=== PATIENT | male | born 1950 | race Caucasian/White ===

== ENCOUNTER 2023-01-13 10:47 | Outpatient (RCR) | payer MEDICARE, SELFPAY | END 2023-03-08 12:31 | disposition home or self-care (01) | LOC: PT 10:47 | PROVIDERS: PCP Family Medicine; Visit Provider Family Medicine | DX: R26.81 Unsteadiness on feet (principal) | CPT/HCPCS: 97032; 97110; 97112; 97530 ==

== ENCOUNTER 2023-03-21 11:42 | Outpatient (OUT) | payer MEDICARE, SELFPAY ==
[2023-03-21 12:19] LABS: Basophils Percent Auto 0.4 % (0.2-2.0); Eosinophils Absolute Auto 0.5 10^3/uL (0.0-0.7); Eosinophils Percent Auto 6.5 % (0.9-7.0); Hematocrit 36.4 % (42.0-54.0); Hemoglobin 11.2 g/dL (14.0-18.0); Immature Granulocytes Abs Auto 0.02 10^3/uL (0.00-0.03); Immature Granulocytes Pct Auto 0.3 % (0.0-0.5); Lymphocytes Absolute Auto 2.3 10^3/uL (1.2-3.8); Lymphocytes Percent Auto 32.1 % (20.5-60.0); Mean Corpuscular HGB Conc 30.8 g/dL (29.9-35.2); Mean Corpuscular Hemoglobin 24.9 pg (25.9-34.0); Mean Corpuscular Volume 80.9 fL (80.0-94.0); Mean Platelet Volume 9.9 fL (9.5-13.5); Monocytes Absolute Auto 0.5 10^3/uL (0.3-0.8); Monocytes Percent Auto 7.4 % (1.7-12.0); Neutrophils Absolute Auto 3.8 10^3/uL (1.4-6.5); Neutrophils Percent Auto 53.3 % (43.0-75.0); Platelet Count 294 10^3/uL (150-450); Red Cell Distribution Width 17.6 % (11.0-15.0); White Blood Count 7.2 10^3/uL (4.0-11.0)
[2023-03-21 12:24] LABS: Estimated Average Glucose 180 mg/dL; Glycohemoglobin A1C 7.9 % (4.5-6.2)
[2023-03-21 12:48] LABS: Alanine Aminotransferase 19 U/L (16-63); Albumin Globulin Ratio 0.9; Albumin Level 4.2 g/dL (3.4-5.0); Alkaline Phosphatase 84 U/L (46-116); Anion Gap 16.6; Aspartate Amino Transferase 15 U/L (15-37); BUN Creatinine Ratio 16.7; Bilirubin Direct 0.1 mg/dL (0.0-0.2); Bilirubin Total 0.5 mg/dL (0.2-1.0); Calcium 9.5 mg/dL (8.5-10.1); Carbon Dioxide 26.8 mmol/L (21.0-32.0); Chloride 104 mmol/L (98-107); Chol HDL Ratio 2.3; Cholesterol 124 mg/dL (<=200); Estimated GFR (African America >60 (>=60); Estimated GFR (Non-African Ame 60 (>=60); Free T3 2.06 pg/mL (2.18-3.98); Globulin 4.5 g/dL; Glucose 180 mg/dL (74-106); HDL Cholesterol 54 mg/dL (40-60); LDL Cholesterol Calculated 46.2 mg/dL; Potassium 4.4 mmol/L (3.5-5.1); Sodium 143 mmol/L (136-145); Total Protein 8.7 g/dL (6.4-8.2); Triglycerides 119 mg/dL (<=150); VLDL CHOLESTEROL 23.8 mg/dL
[2023-03-21 15:47] LABS: Microalbumin Urine Random 25.1 mg/dL (<=30.0)
== END 2023-03-21 11:43 | disposition home or self-care (01) ==
PROVIDERS: PCP Family Medicine; Visit Provider Family Medicine
DX: E11.65 Type 2 diabetes mellitus with hyperglycemia (principal); I10 Essential (primary) hypertension; Z79.899 Other long term (current) drug therapy; E03.9 Hypothyroidism, unspecified; E78.5 Hyperlipidemia, unspecified
CPT/HCPCS: 36415; 80048; 80061; 80076; 82043; 83036; 84481; 85025

== ENCOUNTER 2023-07-18 14:20 | Outpatient (OUT) | payer MEDICARE, SELFPAY ==
[2023-07-18 15:02] LABS: Basophils Percent Auto 0.3 % (0.2-2.0); Eosinophils Absolute Auto 0.3 10^3/uL (0.0-0.7); Eosinophils Percent Auto 4.1 % (0.9-7.0); Hematocrit 41.9 % (42.0-54.0); Hemoglobin 13.6 g/dL (14.0-18.0); Immature Granulocytes Abs Auto 0.01 10^3/uL (0.00-0.03); Immature Granulocytes Pct Auto 0.2 % (0.0-0.5); Lymphocytes Absolute Auto 2.1 10^3/uL (1.2-3.8); Lymphocytes Percent Auto 33.2 % (20.5-60.0); Mean Corpuscular HGB Conc 32.5 g/dL (29.9-35.2); Mean Corpuscular Hemoglobin 29.6 pg (25.9-34.0); Mean Corpuscular Volume 91.1 fL (80.0-94.0); Mean Platelet Volume 10.1 fL (9.5-13.5); Monocytes Absolute Auto 0.6 10^3/uL (0.3-0.8); Monocytes Percent Auto 9.4 % (1.7-12.0); Neutrophils Absolute Auto 3.3 10^3/uL (1.4-6.5); Neutrophils Percent Auto 52.8 % (43.0-75.0); Platelet Count 187 10^3/uL (150-450); Red Cell Distribution Width 16.9 % (11.0-15.0); White Blood Count 6.3 10^3/uL (4.0-11.0)
== END 2023-07-18 14:21 | disposition home or self-care (01) ==
LOC: LAB 14:22
PROVIDERS: PCP Family Medicine; Visit Provider Family Medicine
DX: Z79.899 Other long term (current) drug therapy (principal)
CPT/HCPCS: 36415; 85025

== ENCOUNTER 2023-09-27 15:26 | Outpatient (OUT) | payer MEDICARE, SELFPAY ==
[2023-09-27 15:47] LABS: Basophils Percent Auto 0.3 % (0.2-2.0); Eosinophils Absolute Auto 0.2 10^3/uL (0.0-0.7); Eosinophils Percent Auto 3.7 % (0.9-7.0); Hematocrit 41.7 % (42.0-54.0); Hemoglobin 13.6 g/dL (14.0-18.0); Immature Granulocytes Abs Auto 0.01 10^3/uL (0.00-0.03); Immature Granulocytes Pct Auto 0.2 % (0.0-0.5); Lymphocytes Absolute Auto 1.8 10^3/uL (1.2-3.8); Lymphocytes Percent Auto 30.6 % (20.5-60.0); Mean Corpuscular HGB Conc 32.6 g/dL (29.9-35.2); Mean Corpuscular Hemoglobin 31.9 pg (25.9-34.0); Mean Corpuscular Volume 97.7 fL (80.0-94.0); Mean Platelet Volume 9.9 fL (9.5-13.5); Monocytes Absolute Auto 0.4 10^3/uL (0.3-0.8); Monocytes Percent Auto 7.4 % (1.7-12.0); Neutrophils Absolute Auto 3.5 10^3/uL (1.4-6.5); Neutrophils Percent Auto 57.8 % (43.0-75.0); Platelet Count 165 10^3/uL (150-450); Red Blood Count 4.27 10^6/uL (4.70-6.10); Red Cell Distribution Width 14.6 % (11.0-15.0)
[2023-09-27 16:02] LABS: Alanine Aminotransferase 23 U/L (16-63); Albumin Level 3.9 g/dL (3.4-5.0); Alkaline Phosphatase 75 U/L (46-116); Anion Gap 15.6; Aspartate Amino Transferase 20 U/L (15-37); Bilirubin Total 0.7 mg/dL (0.2-1.0); Calcium 9.3 mg/dL (8.5-10.1); Carbon Dioxide 27.6 mmol/L (21.0-32.0); Chloride 110 mmol/L (98-107); Estimated GFR (African America >60 (>=60); Estimated GFR (Non-African Ame >60 (>=60); Globulin 4.1 g/dL; Glucose 158 mg/dL (74-106); Potassium 4.2 mmol/L (3.5-5.1); Sodium 149 mmol/L (136-145)
[2023-09-27 16:06] LABS: INR 1.08; Partial Thromboplastin Time 29.7 sec (22.3-36.2); Prothrombin Time 11.4 sec (9.0-11.6)
== END 2023-09-27 15:27 | disposition home or self-care (01) ==
LOC: LAB 15:27
PROVIDERS: PCP Family Medicine; Visit Provider Internal Medicine
DX: K92.1 Melena (principal)
CPT/HCPCS: 36415; 80053; 85025; 85610; 85730

== ENCOUNTER 2024-02-24 11:47 | Outpatient (OUT) | payer MEDICARE, SELFPAY ==
[2024-02-24 12:48] LABS: Basophils Percent Auto 0.5 % (0.2-2.0); Eosinophils Absolute Auto 0.3 10^3/uL (0.0-0.7); Eosinophils Percent Auto 4.3 % (0.9-7.0); Hematocrit 36.2 % (42.0-54.0); Immature Granulocytes Abs Auto 0.03 10^3/uL (0.00-0.03); Immature Granulocytes Pct Auto 0.5 % (0.0-0.5); Lymphocytes Absolute Auto 1.2 10^3/uL (1.2-3.8); Lymphocytes Percent Auto 19.1 % (20.5-60.0); Mean Corpuscular HGB Conc 33.1 g/dL (29.9-35.2); Mean Corpuscular Hemoglobin 32.3 pg (25.9-34.0); Mean Corpuscular Volume 97.6 fL (80.0-94.0); Mean Platelet Volume 9.6 fL (9.5-13.5); Monocytes Absolute Auto 0.6 10^3/uL (0.3-0.8); Neutrophils Absolute Auto 4.2 10^3/uL (1.4-6.5); Neutrophils Percent Auto 66.6 % (43.0-75.0); Platelet Count 242 10^3/uL (150-450); Red Blood Count 3.71 10^6/uL (4.70-6.10); Red Cell Distribution Width 14.5 % (11.0-15.0); White Blood Count 6.2 10^3/uL (4.0-11.0)
[2024-02-24 14:11] LABS: Anion Gap 15.4; Calcium 9.1 mg/dL (8.5-10.1); Carbon Dioxide 25.3 mmol/L (21.0-32.0); Chloride 104 mmol/L (98-107); Estimated GFR (African America >60 (>=60); Estimated GFR (Non-African Ame >60 (>=60); Glucose 174 mg/dL (74-106); Potassium 4.7 mmol/L (3.5-5.1); Sodium 140 mmol/L (136-145)
[2024-02-24 14:19] LABS: Estimated Average Glucose 134 mg/dL; Glycohemoglobin A1C 6.3 % (4.5-6.2)
== END 2024-02-24 11:48 | disposition home or self-care (01) ==
LOC: LAB 11:52
PROVIDERS: PCP Family Medicine
DX: Z01.818 Encounter for other preprocedural examination (principal)
CPT/HCPCS: 36415; 80048; 83036; 85025

== ENCOUNTER 2024-07-26 13:53 | Outpatient (OUT) | payer MEDICARE, SELFPAY ==
[2024-07-26 14:35] LABS: Basophils Percent Auto 0.3 % (0.2-2.0); Eosinophils Absolute Auto 0.2 10^3/uL (0.0-0.7); Eosinophils Percent Auto 3.6 % (0.9-7.0); Hematocrit 39.1 % (42.0-54.0); Hemoglobin 12.9 g/dL (14.0-18.0); Immature Granulocytes Abs Auto 0.02 10^3/uL (0.00-0.03); Immature Granulocytes Pct Auto 0.3 % (0.0-0.5); Lymphocytes Absolute Auto 1.9 10^3/uL (1.2-3.8); Lymphocytes Percent Auto 28.7 % (20.5-60.0); Mean Corpuscular Hemoglobin 31.7 pg (25.9-34.0); Mean Corpuscular Volume 96.1 fL (80.0-94.0); Monocytes Absolute Auto 0.5 10^3/uL (0.3-0.8); Monocytes Percent Auto 7.6 % (1.7-12.0); Neutrophils Percent Auto 59.5 % (43.0-75.0); Platelet Count 237 10^3/uL (150-450); Red Blood Count 4.07 10^6/uL (4.70-6.10); Red Cell Distribution Width 14.5 % (11.0-15.0); White Blood Count 6.7 10^3/uL (4.0-11.0)
[2024-07-26 15:00] LABS: Prostate Specific Antigen Scrn 12.96 ng/mL (<=4.00)
[2024-07-26 15:35] LABS: Cholesterol 149 mg/dL (<=200); HDL Cholesterol 76 mg/dL (40-60); Triglycerides 123 mg/dL (<=150); VLDL CHOLESTEROL 24.6 mg/dL
== END 2024-07-26 13:54 | disposition home or self-care (01) ==
LOC: LAB 13:53
PROVIDERS: PCP Family Medicine; Visit Provider Family Medicine
DX: E11.65 Type 2 diabetes mellitus with hyperglycemia (principal); Z79.899 Other long term (current) drug therapy; E78.00 Pure hypercholesterolemia, unspecified; Z12.5 Encounter for screening for malignant neoplasm of prostate
CPT/HCPCS: 36415; 80061; 82043; 85025; G0103

== ENCOUNTER 2024-07-26 13:56 | Outpatient (OUT) | payer MEDICARE, SELFPAY ==
--- NOTE | 2024-07-26 14:11 | CT_ITS ---
The [address] [address] Patient Name: SARMAD VALENTE MRN: [facility]:[id number] date: 1950 Sex: M Assigned Patient Location: CT Current Patient Location: CT Accession/Order Number: [id number] Exam Date: 07/26/2024 14:20 Report Date: 07/26/2024 15:03 At the request of: NON-STAFF PHYSICIAN Procedure: CT head/brain wo con CT head/brain wo con, 07/26/2024 2:20 PM EST INDICATION: Mental Status Change, Cognitive Change COMPARISON: There is no appropriate prior study for comparison. TECHNIQUE: Axial CT images of the brain from skull base to vertex, including portions of the face and sinuses, were obtained without contrast . Multiplanar reformatted images were generated and reviewed as needed. Dose reduction techniques were achieved by using automated exposure control and/or adjustment of mA and/or kV according to patient size and/or use of iterative reconstruction technique. FINDINGS: The cerebral sulci as well as ventricular system are appropriate for age. There is no intracranial mass, mass effect, midline shift, intra or extra-axial fluid collection or hemorrhage. Periventricular and centrum semiovale hypodensities are most likely consistent with microvascular ischemic changes. The visualized portions of orbits, mastoid air cells as well as paranasal sinuses are unremarkable. There is no suspicious osteolytic or osteoblastic lesion. CT/CT head/brain wo con IMPRESSION: No acute intracranial process is noted. Electronically authenticated by: BOB MALCOLM Date: 07/26/2024 15:03
[2024-07-26 14:36] LABS: Estimated Average Glucose 140 mg/dL; Glycohemoglobin A1C 6.5 % (4.5-6.2)
[2024-07-26 14:38] LABS: Alanine Aminotransferase 23 U/L (16-63); Albumin Level 3.9 g/dL (3.4-5.0); Alkaline Phosphatase 70 U/L (46-116); Anion Gap 19.1; Aspartate Amino Transferase 24 U/L (15-37); BUN Creatinine Ratio 11.7; Bilirubin Total 0.6 mg/dL (0.2-1.0); Calcium 8.9 mg/dL (8.5-10.1); Carbon Dioxide 25.8 mmol/L (21.0-32.0); Chloride 106 mmol/L (98-107); Estimated GFR (African America >60 (>=60 mL/min/1.73m^2); Estimated GFR (Non-African Ame 55 (>=60 mL/min/1.73m^2); Globulin 3.9 g/dL; Glucose 114 mg/dL (74-106); Potassium 3.9 mmol/L (3.5-5.1); Sodium 147 mmol/L (136-145); Total Protein 7.8 g/dL (6.4-8.2)
[2024-07-26 14:58] LABS: Thyroid Stimulating Hormone 10.216 uIU/mL (0.358-3.740)
[2024-07-27 08:10] LABS: Vitamin B12 201 pg/mL (232-1245)
== END 2024-07-26 13:57 | disposition home or self-care (01) ==
LOC: CT 13:56
PROVIDERS: PCP Family Medicine
DX: E11.65 Type 2 diabetes mellitus with hyperglycemia (principal); Z79.899 Other long term (current) drug therapy; E78.00 Pure hypercholesterolemia, unspecified; Z12.5 Encounter for screening for malignant neoplasm of prostate; R41.89 Other symptoms and signs involving cognitive functions and awareness; E78.2 Mixed hyperlipidemia; E07.9 Disorder of thyroid, unspecified; E53.8 Deficiency of other specified B group vitamins
CPT/HCPCS: 36415; 70450; 80053; 80061; 82607; 83036; 84443; 85025; G0103

== ENCOUNTER 2024-12-24 19:12 | Emergency (ER) | payer MEDICARE, SELFPAY ==
[2024-12-24 19:16] VITALS: BP 157/97; PULSE 111; TEMP 36.8; O2SAT 99; BMI 27.8
--- OUTSIDE RECORDS SUMMARY | 2024-12-24 19:25 | XMS_ITS | CCD ---
Author Organization [facility] Care Team Providers Care Stopper Setter Name Role Phone PHYSICIAN, DEFAULT Admitting Unavailable PHYSICIAN, DEFAULT Attending Unavailable RILEY KEVIN Primary Care Unavailable JUDY MICHAELS Referring Unavailable SEARS, CATHLEEN Valentino Primary Care Unavailable Searachel, Cathleen Valentino Primary Care Provider [phone] Cathleen Cooney Primary Care Provider JANENE CARROLL Attending Unavailabl e CATHLEEN COONEY Primary Care Unavail able CATHLEEN COONEY Consulting Unavail able Ronnirs Cathleen CALDERON Primary Care Provider YANELI CARO Referring Unavailable SEARS, CATHLEEN Valentino Primary Care Unavailable CHANCE MCNEAL Referring Unavailable SEARS, CATHLEEN Valentino Primary Care Unavailable SEARS, CATHLEEN Valentino Referring Unavailable SEARS, CATHLEEN Valentino Primary Care Unavailable SEARS, CATHLEEN Valentino Referring Unavailable SEARS, CATHLEEN Valentino Primary Care Unavailable SEARS, CATHLEEN Valentino Referring Unavailable SEARS, GENNAROOPHHO Valentino Primary Care Unavailable SEARS, CATHLEEN Valentino Referring Unavailable SEARS, CHRISTOPHHO Valentino Primary Care Unavailable SEARS, CATHLEEN Valentino Referring Unavailable SEARS, CATHLEEN Valentino Primary Care Unavailable YANELI CARO Referring Unavailable SEARS, CATHLEEN Valentino Primary Care Unavailable ANKIT KHAN Primary Care Physician Tee Carpenter MD Unavailable Ankit Khan MD Unavailable Sarmad Finley MD Unavailable Ankit Khan MD Primary Care Provider MAR Johnson Attending Provider [phone] MD Ankit Khan Primary Care Provider Cathleen Cooney Unavailable Cathleen Cooney Primary Care Provider LUMary Anne ., DINA Aparicio Admitting Unavailable LUE ., DINA Aparicio Attending Unavailable WEST, DR SANCHEZ Ashley Consulting Unavailable NADERER, DR ANKIT Alcantar Primary Care Unavailable LUMary Anne ., DINA Aparicio Consulting Unavailable NADERER, DR ANKIT Alcantar Admitting Unavailable NADERER, DR ANKIT Alcantar Attending Unavailable NADERER, DR ANKIT Alcantar Primary Care Unavailable REINECK, DR GOLDIE Ivy Consulting Unavailabl e NADERER, DR ANKIT Alcantar Admitting Unavailable NADERER, DR ANKIT Alcantar Attending Unavailable NADERER, DR ANKIT Alcantar Primary Care Unavailable WEST, DR SANCHEZ Ashley Consulting Unavailable ZIEBER, DR EFRA Owen Consulting Unavailable NADERER, DR ANKIT Alcantar Consulting Unavailable NILL ., DR ONEAL Consulting Unavailable NADERER, DR ANKIT Alcantar Admitting Unavailable NADERER, DR ANKIT Alcantar Attending Unavailable NADERER, DR ANKIT Alcantar Primary Care Unavailable NADERER, DR ANKIT Alcantar Admitting Unavailable NADERER, DR ANKIT Alcantar Attending Unavailable NADERER, DR ANKIT Alcantar Consulting Unavailable NADERER, DR ANKIT Alcantar Primary Care Unavailable Jayden CALDERON, Tee Unavailable Ankit Khan MD Unavailable Sarmad Finley MD Unavailable Ankit Khan MD Primary Care Provider Cathleen Cooney MD Unavailable [phone] Cathleen Cooney MD Primary Care Provider Dina Ortiz MD Unavailable DINA ORTIZ Referring Unavailable YARY FERNANDO Attending Unavailable CATHLEEN COONEY Primary Care Unavailable Ankit Khan MD Primary Care Provider Cathleen Cooney MD Primary Care Provider AYUSH GONZALEZ Attending Unavailable AYUSH GONZALEZ Referring Unavailable ANKIT KHAN Primary Care Unavailable AYUSH GONZALEZ Referring Unavailable ANKIT KHAN Primary Care Unavailable AYUSH GONZALEZ Attending Unavailable SARMAD FINLEY Attending Unavailable ANKIT KHAN Primary Care Unavailable BILL, ANKIT Referring Unavailable Brianerer, Ankit Alcantar Primary Care Provider MD Ankit Khan Primary Care Provider MD Scot Imjames Attending Provider MAR Siddiqi Attending Provider Ankit Khan MD Primary Care Provider Shaikh Chilel MD Unavailable Ankit Khan MD Primary Care Provider Asaad, Imad Admitting Unavailable Asaad, Imad Attending Unavailable Ankit Khan Primary Care Unavailable Rebekah Siddiqi Admitting Unavailable Rebekah Siddiqi Attending Unavailable Ankit Khan Primary Care Unavailable Asaad, Imad Admitting Unavailable Asaad, Imad Attending Unavailable Ankit Khan Primary Care Unavailable Asaad, Imad Admitting Unavailable Asaad, Imad Attending Unavailable Ankit Khan Primary Care Unavailable Ankit Khan MD Unavailable ANKIT KHAN Attending Unavailable SHAIKH CHILEL Attending Unavailable SHAIKH CHILEL Attending Unavailable ANKIT KHAN Attending Unavailable ANKIT KHAN Attending Unavailable Dina Ortiz Attending Unavailable Dina Ortiz Attending Unavailable Dina Ortiz Attending Unavailable CATHLEEN COONEY Primary Care Unavailable ALEX NEWMAN Referring Unavailable BRODERICK BENITEZ Attending Unavail able NADERER, ANKIT A Primary Care Unavailable NADERER, ANKIT A Primary Care Unavailable RADHA VO Attending Unavailable BRODERICK BENITEZ Attending Unavail able NADERER, ANKIT A Primary Care Unavailable ALEX NEWMAN Attending Unavailable NADERER, ANKIT A Primary Care Unavailable SALLY DENNIS Attending Unavaila ble NADERER, ANKIT A Primary Care Unavailable ALEX NEWMAN Referring Unavailable NADERER, ANKIT A Primary Care Unavailable ALEX NEWMAN Attending Unavailable NADERER, ANKIT A Primary Care Unavailable NASRA CUEVA Attending Unavailable NADERER, ANKIT A Primary Care Unavailable ALEX NEWMAN Attending Unavailable NADERER, ANKIT A Primary Care Unavailable BENITEZBRODERICK IZAGUIRRE KIMMY Attending Unavail able ANKIT KHAN Primary Care Unavailable ALEX NEWMAN Attending Unavailable BILL ANKIT Katharine Primary Care Unavailable CATHLEEN COONEY Primary Care Unavailable ALEX NEWMAN Referring Unavailable RADHA VO Attending Unavailable BILL ANKIT Katharine Primary Care Unavailable ALEX NEWMAN Attending Unavailable ALEX NEWMAN Admitting Unavailable BRIANNADEGE ANKIT Katharine Primary Care Unavailable CATHLEEN COONEY Primary Care Unavailable ALEX NEWMAN Attending Unavailable ALEX NEWMAN Admitting Unavailable Allergies Allergy Classification Reported Allergen(s) Allergy Type Date of Onset Reaction(s) Facility Amoxicillin / Clavulanate (1 source) Amoxicillin / Clavulanate Drug Allergy 04-13-20 16 Other: See Comments [facility] Penicillins (antibiotic) (3 sources) Amoxicillin Drug Allergy 11-08-[address] [facility] (20 sources) Amoxicillin; Translations: [amoxicillin] Drug Allergy 11-08-19 14 Unknown [place], [place] (20 sources) Amoxicillin-Pot Clavulanate; Translations: [AMOXICILLIN-POT CLAVULANATE] Propensity to adverse reactions to drug 11-08-19 14 Nausea Only, Other: See Comments, Unknown [place], [place] (10 sources) Shellfish-Derived Products Propensity to adverse reactions to drug 05-29-20 20 [place], [place] (20 sources) Amoxicillin / Clavulanate; Translations: [Augmentin] Drug Allergy unknown [facility] (20 sources) Shellfish; Translations: [shellfish] Drug allergy Unknown (qualifier value) [facility] (20 sources) levoFLOXacin; Translations: [levofloxacin] Drug Allergy 10-20-19 24 Hallucinations (finding), Hallucinations [facility] (18 sources) Penicillins; Translations: [Penicillins] Allergy to substance 12-18-19 22 Vomiting [facility] (1 source) Amoxicillin Drug Allergy [facility] Rep[facility] (14 sources) Cephalosporins (Antibiotic); Translations: [cephalosporins] Drug Allergy 08-10-20 23 Unknown, Unknown (qualifier value) [facility] (5 sources) Clavulanate; Translations: [clavulanic acid] Drug Allergy 04-19-20 diarrhea [facility] (11 sources) Shellfish Allergy to substance 10-20-[address] [facility] (1 source) Amoxicillin Drug Allergy 04-19-20 [facility] Repository Medications Current Medications Medication Drug Class(es) Dates Sig (Normalized) Sig (Original) 0.8 ml adalimumab 50 mg/ml prefilled syringe (15 sources) Tumor Necrosis Factor Hattie adalimumab (HUMIRA) 40 MG/0.8ML injection Inject 40 mg into the skin as needed 40 mg every other week 0 Active adalimumab (HUMI RA) 40 MG/0.8ML injection Inject 40 mg into the skin as needed 40 mg every other week 0 Active 200 actuat albuterol 0.09 mg/actuat metered dose inhaler (1 source) beta2-Adrenergic Agonist Start: 08-17-2016 take 2 puff(s) by inhalation four times daily albuterol sulfate HFA (PROAIR HFA) 108 (90 BASE) MCG/ACT inhaler Inhale 2 puffs into the lungs 4 times daily 1 Inhaler 0 08/17/2016 Active allopurinol 300 mg oral tablet (20 sources) Xanthine Oxidase Inhibitor Start: 10-30-2021 Start: 09-21-2018 End: 05-16-2024 allopurinol (ZYLOPRIM) 300 m g tablet Take 300 mg by mouth. 09/21/2018 Active Comment on above: Take 300 mg by mouth . amLODIPine 5 mg oral tablet (2 sources) Dihydropyridine Calcium Channel Hattie Start: 10-31-19 Anbesol Maximum Strength 20% mucous membrane gel (6 sources) Start: 10-31-19 Anbesol Maximum Strength 20% mucous membrane gel Refill(s) 0, Transmucosal Start Date: 10/30/21 Status: Ordered atorvastatin 20 mg oral tablet (20 sources) HMG-CoA Reductase Inhibitor Start: 09-21-19 End: 03-19-20 atorvastatin (LIPITOR) 20 mg tablet Take 20 mg by mouth. 11/03/2020 Active Comment on above: Take 20 mg by mouth. benzocaine 0.2 mg/mg oral gel (14 sources) Standardized Chemical Allergen Start: 03-18-20 22 Anbesol Maximum Strength 20% mucous membrane gel Refill(s) 0, Transmucosal Start Date: 10/30/21 Status: Ordered Blood Glucose Monitoring Suppl (EMBRACE PRO GLUCOSE METER) LINDA (20 sources) Start: 11-30-19 Blood Glucose Monitoring Suppl (EMBRACE PRO GLUCOSE METER) LINDA Embrace glucose meter/ Dispense 1 meter/ Dx: E11.9 1 Device 0 11/29/2016 Active 24 hr buPROPion hydrochloride 300 mg extended release oral tablet (20 sources) Aminoketone Start: 12-01-19 take 1 tablet by mouth every twenty-four hours in the morning buPROPion XL (Wellbutrin XL) 300 MG 24 hr tablet Indications: Anxiety state (CMS/HCC) Take 1 tablet (300 mg) by mouth in the morning. 90 tablet 3 12/01/2023 Active Start: 05-10-2023 take 1 tablet by swati th every twenty-four hours in the morning buPROPion XL (Wellbutrin XL) 300 MG 24 hr tablet Take 300 mg by mouth in the morning. 0 05/10/2023 Active Start: 10-30-2021 Start: 10-30-2021 Start: 09-25-2021 take 1 tablet by swati th once daily in the morning buPROPion 300 MG tablet XL Take 1 tablet by mouth daily every morning. 09/25/2021 Active Start: 12-01-2020 take 1 tablet by swati th once daily in the morning buPROPion (WELLBUTRIN XL) 300 MG extended release tablet Take 1 tablet by mouth every morning 90 tablet 3 12/01/2020 Active Start: 11-03-2020 take 1 tablet by swati th every twenty-four hours buPROPion XL (WELLBUTRIN XL) 150 mg 24 hr tablet Take 150 mg by mouth. 11/03/2020 Active Start: 11-03-2020 take 1 tablet by swati th once daily in the morning buPROPion (WELLBUTRIN XL) 150 MG extended release tablet Take 1 tablet by mouth every morning 90 tablet 3 11/03/2020 Active Start: 11-30-2019 take 1 tablet by swati th once daily in the morning buPROPion (WELLBUTRIN XL) 150 MG extended release tablet Take 1 tablet by mouth every morning 90 tablet 3 11/30/2019 Active Comment on above: Take 150 mg by mouth . cholecalciferol 0.05 mg oral tablet (9 sources) Vitamin D Start: 12-18-19 take 1 tablet by mouth once daily Cholecalciferol (Vitamin D3) (Vitamin D3) 50 mcg (2,000 unit) Tablet Active 50 MCG PO Daily December 17, 2021 12:00am Start: 09-25-2021 End: 09-27-2023 take 1 tablet by mouth once daily cholecalciferol 50 MCG (2000 UNIT) tablet Take 1 tablet by mouth daily. 09/25/2021 09/27/2023 Discontinued (Therapy completed) clobetasol propionate 0.5 mg/ml topical solution (12 sources) Corticosteroid clobetasol (Jb vate) 0.05 % external solution Apply 1 application topically in the morning and 1 application before bedtime. Active CPAP/BIPAP/OTHER (20 sources) Start: 02-06-2021 End: 06-23-2048 CPAP/BIPAP/OTHER autopap [id number] [facility]ME [facility] 1 Each 02/06/2021 06/23/2048 Active Start: 02-06-2021 End: 06-23-2048 CPAP/BIPAP/OTHER autopap 5-1 [id number] DME [facility] 1 Each 0 02/06/2021 06/23/2048 Active Comment on above: autopap [id number] DME [facility] DISABILITY PLACARD (1 source) Start: 2 End: 3 DISABILITY PLACARD Disability placard end date 09/25/2022 1 Each 0 09/25/2021 09/25/2022 Active docusate sodium 100 mg oral capsule (9 sources) Start: 2 End: 4 take 1 capsule by mouth twice daily Docusate Sodium (Colace) 100 mg Capsule Active 100 MG PO Twice daily December 17, 2021 12:00am doxycycline hyclate 100 mg oral capsule (9 sources) Tetracycline-class Drug Start: 5 End: 5 take 1 capsule by mouth twice daily doxycycline hyclate (VIBRAMYCIN) 100 mg capsule Take 1 capsule (100 mg) by mouth two times a day for 14 days. 20 capsule 09/28/2024 10/12/2024 Active Start: 09-18-2024 End: 09-23-2024 take 1 capsule by mouth twice daily doxycycline hyclate (VIBRAMYCIN) 100 mg capsule Take 1 capsule (100 mg) by mouth two times a day for 5 days. 10 capsule 09/18/2024 09/23/2024 Active Start: 06-08-2024 End: 06-13-2024 take 1 capsule by mouth twice daily doxycycline hyclate (VIBRAMYCIN) 100 mg capsule Take 1 capsule (100 mg) by mouth two times a day for 5 days. 10 capsule 06/08/2024 06/13/2024 Active Start: 06-28-2022 End: 07-08-2022 take 1 capsule by mouth every twelve hours doxycycline hyclate 100 mg Cap 100 mg = 1 cap(s), Oral, q12hr, X 10 day(s), # 20 cap(s), Refills(s) 0, [id number], 175, cm, 06/24/22 15:12:00 EST, Height/Length Dosing, 182, kg, 06/24/22 15:12:00 EST, Weight Dosing Start Date: 06/28/22 Stop Date: 07/08/22 Status: Ordered ferrous sulfate 325 mg oral tablet (8 sources) Start: 04-03-2020 take 1 tablet by mouth twice daily ferrous sulfate (IRON 325) 325 (65 Fe) MG tablet Take 1 tablet by mouth 2 times daily 180 tablet 1 04/03/2020 Active fluticasone propionate 0.05 mg/actuat metered dose nasal spray (1 source) Corticosteroid Start: 10-25-2014 fluticasone (FLONASE) 50 MCG/ACT nasal spray 1 spray by Nasal route 2 times daily. 1 Bottle 0 10/25/2014 Active gabapentin 300 mg oral capsule (20 sources) Anti-epileptic Agent Start: 01-25-2024 End: 05-16-2024 take 1 capsule by mouth in the morning gabapentin (Neurontin) 300 MG capsule Indications: Spinal stenosis of lumbar region with neurogenic claudication Take 1 capsule (300 mg) by mouth in the morning and 1 capsule (300 mg) before bedtime. 270 capsule 05/16/2024 Active Start: 09-24-2021 take 1 capsule by mo uth in the morning gabapentin (Neurontin) 300 MG capsule Take 300 mg by mouth in the morning and 300 mg before bedtime. 0 06/14/2023 Active GABAPENTIN, BULK, MISC (20 sources) GABAPENTIN, BULK , MISC 300 mg BID Active GABAPENTIN, BULK , MISC 300 mg BID 0 Active Insulin Lispro (2 sources) Insulin Analog Start: 10-30-2021 ketoconazole 20 mg/ml medicated shampoo (12 sources) Azole Antifungal ketoconazole (Nizoral) 2 % shampoo Apply 1 application topically 1 (one) time each day at the same time Active lamoTRIgine 25 mg oral tablet (11 sources) Mood Stabilizer, Anti-epileptic Agent Start: 10-10-2024 take 1 tablet by mouth at bedtime, then take 2 tablets by mouth at bedtime lamoTRIgine (LaMICtal) 25 MG tablet Indications: MDD (major depressive disorder), recurrent episode, moderate (CMS/HCC) TAKE 1 TAB BY MOUTH AT BEDTIME FOR 2 WEEKS, THEN INCREASE TO 2 TABS AT BEDTIME 180 tablet 1 10/10/2024 Active Start: 04-20-2024 take 1 tablet by swati th once daily at bedtime, then take 2 tablets by mouth once daily at bedtime lamoTRIgine (LaMICtal) 25 MG tablet Indications: MDD (major depressive disorder), recurrent episode, moderate (CMS/HCC) 1 PO QHS x 2 weeks then 2 PO QHS 60 tablet 3 04/20/2024 Active levothyroxine sodium 0.125 mg oral tablet (20 sources) l-Thyroxine Start: 07-26-2024 take 1 tablet by mouth once daily levothyroxine (SYNTHROID) 125 mcg tablet Take 1 tablet by mouth once daily. 08/27/2024 Active Start: 10-30-2021 Start: 09-25-2021 End: 12-15-2024 take 1 tablet by mouth before mealtime levothyroxine (Synthroid) 100 MCG tablet Indications: Hypothyroidism, unspecified type (CMS/HCC) Take 1 tablet (100 mcg) by mouth in the morning. Take before meals. 30 tablet 11 12/16/2023 07/26/2024 Discontinued (Reorder) Start: 12-01-2020 take 1 tablet by swati th once daily levothyroxine (SYNTHROID) 100 MCG tablet Take 1 tablet by mouth daily 90 tablet 3 12/01/2020 Active Start: 01-10-2020 take 1 tablet by swati th once daily levothyroxine (SYNTHROID) 100 MCG tablet Take 1 tablet by mouth daily 90 tablet 3 01/10/2020 Active Start: 11-30-2019 take 1 tablet by swati th once daily levothyroxine (SYNTHROID) 100 MCG tablet Take 1 tablet by mouth daily 90 tablet 3 11/30/2019 Active Start: 09-21-2018 End: 08-27-2024 take 1 tablet by mouth once daily levothyroxine (SYNTHROID) 88 mcg tablet Take 88 mcg by mouth once daily. 09/21/2018 08/27/2024 Discontinued Comment on above: Take 88 mcg by mouth once daily. lisinopril 10 mg oral tablet (20 sources) Angiotensin Converting Enzyme Inhibitor Start: 2 take 1 tablet by mouth once daily lisinopril 10 MG tablet Indications: Primary hypertension (CMS/HCC) Take 1 tablet (10 mg) by mouth Daily 90 tablet 3 02/06/2024 Active magnesium oxide 400 mg oral tablet (9 sources) Start: 2 take 400 mg by mouth twice daily Magnesium Oxide Active 400 MG PO Twice daily December 17, 2021 12:00am Start: 09-24-2021 End: 09-27-2023 take 2 tablets by mouth twice daily magnesium oxide 400 (241.3 Mg) MG tablet Take 2 tablets by mouth 2 times daily. 09/24/2021 09/27/2023 Discontinued (Therapy completed) Start: 09-24-20[address] [facility] twice daily magnesium oxide 400 (241.3 Mg) MG tablet Take 2 tablets by mouth 2 times daily. 0 09/24/2021 Active Start: 09-24-20[address] [facility] twice daily magnesium oxide 400 (241.3 Mg) MG tablet Take 2 tablets by mouth 2 times daily. 0 09/24/2021 Active Magnesium Sulfate (2 sources) Start: 10-30-2021 magnesium sulfate 0.0277 meq/ml / potassium sulfate 0.0374 meq/ml / sodium sulfate 0.257 meq/ml oral solution (1 source) Start: 08-17-2019 Na Sulfate-K Sulfate-Mg Sulf (SUPREP BOWEL PREP KIT) 17.5-3.13-1.6 GM/177ML SOLN Take as directed 2 Bottle 0 08/17/2019 Active metFORMIN hydrochloride 1000 mg oral tablet (20 sources) Biguanide Start: 09-10-2024 take 1 tablet by mouth twice daily at dinner metFORMIN (Glucophage) 1000 MG tablet Indications: Type 2 diabetes mellitus with hyperglycemia, without long-term current use of insulin (CMS/HCC) TAKE 1 TABLET BY MOUTH TWICE A DAY WITH MORNING AND EVENING MEAL 180 tablet 3 09/10/2024 Active Start: 09-24-2021 take 1 tablet by swati th twice daily at dinner metFORMIN (Glucophage) 1000 MG tablet Indications: Type 2 diabetes mellitus with hyperglycemia, without long-term current use of insulin (CMS/HCC) take 1 tablet by mouth twice a day WITH MORNING AND EVENING MEAL 180 tablet 3 03/06/2024 Active Start: 12-01-2020 take 1 tablet by swati th twice daily at mealtime metFORMIN (GLUCOPHAGE) 1000 MG tablet Take 1 tablet by mouth 2 times daily (with meals) 180 tablet 3 12/01/2020 Active Start: 01-10-2020 take 1 tablet by swati th twice daily at mealtime metFORMIN (GLUCOPHAGE) 1000 MG tablet Take 1 tablet by mouth 2 times daily (with meals) 180 tablet 3 01/10/2020 Active Start: 09-21-2018 take 1 tablet by swati th once daily metFORMIN (GLUCOPHAGE) 1,000 mg tablet Take 1,000 mg by mouth once daily. 09/21/2018 Active Start: 09-21-2018 take 1 tablet by swati th twice daily at mealtime metFORMIN (GLUCOPHAGE) 1000 MG tablet Take 1 tablet by mouth 2 times daily (with meals) 180 tablet 3 09/21/2018 Active Comment on above: Take 1,000 mg by swati th once daily. metroNIDAZOLE 500 mg oral tablet (2 sources) Nitroimidazole Antimicrobial Start: 10-31-19 22 multivitamin tablet (20 sources) take 1 tablet by mouth once daily multivitamin tablet Take 1 tablet by mouth once daily. Active take 1 tablet by mouth once hailey y multivitamin tablet Take 1 tablet by mouth once daily. 0 Active pantoprazole 40 mg delayed release oral tablet (20 sources) Proton Pump Inhibitor Start: 09-21-2024 take 1 tablet by mouth once pantoprazole (ProtoNix) 40 MG EC tablet Indications: Melena , Gastroesophageal reflux disease with esophagitis and hemorrhage TAKE 1 TABLET (40 MG) BY MOUTH EVERY 12 (TWELVE) HOURS 180 tablet 09/21/2024 Active Start: 06-25-2024 take 1 tablet by mouth once pa ntoprazole (ProtoNix) 40 MG EC tablet Indications: Melena , Gastroesophageal reflux disease with esophagitis and hemorrhage Take 1 tablet (40 mg) by mouth every 12 (twelve) hours 180 tablet 06/25/2024 Active Start: 02-07-2024 take 1 tablet by swati th every twelve hours pantoprazole (ProtoNix) 40 MG EC tablet Indications: Melena , Gastroesophageal reflux disease with esophagitis and hemorrhage take 1 tablet by mouth every 12 hours 180 tablet 02/07/2024 Active Start: 12-07-2023 Pantoprazole A ctive MG PO December 07, 2023 12:00am Start: 08-17-2023 End: 11-15-2023 take 1 tablet by mouth once pantoprazole (Protonix) 40 MG EC tablet Indications: Melena , Gastroesophageal reflux disease with esophagitis and hemorrhage Take 1 tablet (40 mg) by mouth every 12 (twelve) hours 180 tablet 0 08/17/2023 11/15/2023 Active Start: 09-24-2021 take 1 tablet by swati th twice daily pantoprazole [address] tablet DR Indications: GI Bleed Take 1 tablet by mouth 2 times daily. 09/24/2021 Active Start: 07-06-2019 take 1 tablet by swati th once daily before breakfast pantoprazole (PROTONIX) 40 MG tablet Take 1 tablet by mouth every morning (before breakfast) 90 tablet 0 07/06/2019 Active 100 ml potassium chloride 0. 1 meq/ml injection (2 sources) Start: 10-30-2021 sennosides, fpc 17.2 mg oral tablet (20 sources) Start: 10-30-2021 Start: 01-07-2019 End: 01-23-2024 senna (SENOKOT) 8.6 mg tab T niurka 8.6 mg by mouth. 0 01/07/2019 01/23/2024 Discontinued (Other) Comment on above: Take 8.6 mg by mouth . sildenafil 50 mg oral tablet (11 sources) Phosphodiesterase 5 Inhibitor Start: 10-20-19 take 1 tablet by mouth once daily as needed sildenafil (Viagra) 50 MG tablet Indications: Erectile dysfunction due to diseases classified elsewhere Take 1 tablet (50 mg) by mouth Daily as needed for erectile dysfunction 30 tablet 10/20/2023 Active Start: 09-01-2017 sildenafil ( AGRA) 100 MG tablet 1/2 to 1 whole tablet 30 minutes prior to intercourse 9 tablet 6 09/01/2017 Active SITagliptin 100 mg oral tablet (20 sources) Dipeptidyl Peptidase 4 Inhibitor Start: 11-03-2020 End: 05-16-2024 take 1 tablet by mouth once daily SITagliptin (JANUVIA) 100 mg tablet Take 100 mg by mouth once daily. 11/03/2020 Active Start: 10-15-2019 take 1 tablet by swati th once daily SITagliptin (JANUVIA) 100 MG tablet Take 1 tablet by mouth daily 90 tablet 3 10/15/2019 Active Start: 09-21-2018 take 1 tablet by swati th once daily SITagliptin (JANUVIA) 100 MG tablet Take 1 tablet by mouth daily 90 tablet 3 09/21/2018 Active Comment on above: Take 100 mg by mouth once daily. sulfamethoxazole 800 mg / trimethoprim 160 mg oral tablet (14 sources) Dihydrofolate Reductase Inhibitor Antibacterial, Sulfonamide Antimicrobial Start: End: take 1 tablet by mouth twice daily sulfamethoxazo le-trimethopri m (BACTRIM DS) 800-160 mg per tablet Take 1 tablet by mouth two times a day for 14 days. 28 tablet 09/24/2024 10/08/2024 Active Start: 09-24-2024 End: 09-24-2024 sulfamethoxazole-trimethopri m 800-160 mg 1 tablet (BACTRIM DS) Start: 09-24-2024 End: 09-24-2024 1 tablet, ORAL, ONCE, 1 dose , On Tue09/24/24 at 1400, Antimicrobial indication: Prophylaxis Start: 06-22-2024 End: 07-02-2024 Bactrim D.S. 800 mg-160 mg T ab 1 tab(s), Oral, BID for 10 day(s), 20 tab(s), Refill(s) 0, [facility]/pharmacy #[id number], 175, cm, 06/22/24 9:47:00 EST, Height/Length Dosing, 86.9, kg, 11/08/24 9:47:00 EST, Weight Dosing Start Date: 06/22/24 Stop Date: 07/02/24 Status: Ordered Start: 02-09-2024 End: 02-14-2024 take 1 tablet by mouth twice daily sulfamethoxazole-trimethoprim (BACTRIM D S) 800-160 mg per tablet Take 1 tablet by mouth two times a day for 5 days. 10 tablet 0 02/09/2024 02/14/2024 Active Start: 01-13-2022 End: 01-20-2022 take 1 tablet by mouth twice daily Bactrim DS 800 mg-160 mg Tab 1 tab(s), O ral, BID for 7 day(s), 14 tab(s), Refill(s) 0, [facility] [facility] [address], 175, cm, 12/17/21 14:26:00 EDT, Height/Length Dosing, 83, kg, 12/17/21 14:26:00 EDT, Weight Dosing Start Date: 01/13/22 Stop Date: 01/20/22 Status: Ordered tiZANidine 4 mg oral tablet (2 sources) Central alpha-2 Adrenergic Agonist Start: 10-30-2021 tiZANidine 4 mg Tab Oral, Refills(s) 0 Start Date: 10/30/21 Status: Ordered trospium chloride 20 mg oral tablet (20 sources) Cholinergic Muscarinic Antagonist Start: 06-17-2022 End: 09-08-2025 take 1 tablet by mouth in the morning trospium (Sanctura) 20 MG tablet Take 20 mg by mouth in the morning and 20 mg before bedtime. 06/16/2023 Active valsartan 160 mg oral tablet (19 sources) Angiotensin 2 Receptor Hattie Start: 09-01-2017 take 1 tablet by mouth once daily valsartan (DIOVAN) 160 MG tablet Take 1 tablet by mouth daily 90 tablet 3 09/01/2017 Active 24 hr venlafaxine 150 mg extended release oral capsule (20 sources) Serotonin and Norepinephrine Reuptake Inhibitor Start: 12-17-2021 take 75 mg by mouth three times daily Venlafaxine Active 75 MG PO Three times daily December 17, 2021 12:00am Start: 09-25-2021 take 3 capsules by m outh once daily in the morning venlafaxine 75 MG Cap SR 24HR capsule XR Take 3 capsules by mouth daily every morning. 09/25/2021 Active Start: 11-03-2020 take 1 capsule by mo ut once daily venlafaxine ER (EFFEXOR XR) 75 mg 24 hr capsule Take 75 mg by mouth once daily. 11/03/2020 Active Start: 11-03-2020 End: 01-23-2024 take 1 capsule by mouth every twenty-four hours venlafaxine ER (EFFEXOR XR) 150 mg 24 hr capsule Take 150 mg by mouth. 0 11/03/2020 01/23/2024 Discontinued (Other) Start: 10-15-2019 take 1 capsule by mo ut once daily venlafaxine (EFFEXOR XR) 75 MG extended release capsule Take 1 capsule by mouth daily Take along with 150 mg tablet 90 capsule 3 10/15/2019 Active Start: 09-21-2018 End: 05-29-2024 take 1 capsule by mouth once daily venlafaxine XR (Effexor XR) 150 MG 24 hr capsule Indications: MDD (major depressive disorder), recurrent episode, moderate (CMS/HCC) Take 1 capsule (150 mg) by mouth 1 (one) time each day at the same time 90 capsule 3 05/29/2024 Active Start: 09-21-2018 take 1 capsule by mo ut once daily venlafaxine (EFFEXOR XR) 75 MG extended release capsule Take 1 capsule by mouth daily Take along with 150 mg tablet 90 capsule 3 09/21/2018 Active Comment on above: Take 75 mg by mouth once daily. Take 150 mg by mouth . vitamin b12 1 mg oral tablet (20 sources) Vitamin B12 Start: 08-27-2024 take 1 tablet by mouth once daily cyanocobalamin (VITAMIN B-12) 1,000 mcg tab Indications: B12 deficiency Take 1 tablet by mouth once daily. 100 tablet 3 08/27/2024 Active Completed/Discontinued Medications Medication Drug Class(es) Dates Sig (Normalized) Sig (Original) amLODIPine 5 mg / benazepril hydrochloride 10 mg oral capsule (20 sources) Dihydropyridine Calcium Channel Hattie, Angiotensin Converting Enzyme Inhibitor Start: 11-03-2020 End: 01-23-2024 take 1 capsule by mouth once daily amLODIPine-benaze pril (LOTREL) 5-10 mg per capsule Take 1 capsule by mouth once daily. 0 11/03/2020 01/23/2024 Discontinued (Other) Start: 10-15-2019 take 1 capsule by mo uth once daily amLODIPine-benazepril (LOTREL) 5-10 MG per capsule Take 1 capsule by mouth daily 90 capsule 3 10/15/2019 Active Start: 09-21-2018 take 1 capsule by mo uth once daily amLODIPine-benazepril (LOTREL) 5-10 MG per capsule Take 1 capsule by mouth daily 90 capsule 3 09/21/2018 Active Comment on above: Take 1 capsule by mo uth once daily. azithromycin 250 mg oral tablet (4 sources) Macrolide Antimicrobial Start: End: take 2 tablets by mouth once daily, then take 1 tablet by mouth once daily Azithromycin (Zithromax Z-Konrad) 250 mg tablet Discontinued 250 MG PO Daily 01 17December 07, 2023 12:00am April 19, 2024 1:06pm take 2 tabs today and 1 daily for the next 4 days baclofen 5 mg oral tablet (4 sources) gamma-Aminobutyric Acid-ergic Agonist Start: End: take 1 tablet by mouth three times daily baclofen 5 MG tablet Take 1 tablet by mouth 3 times daily. 09/24/2021 09/27/2023 Discontinued (Therapy completed) 0.4 ml enoxaparin sodium 100 mg/ml prefilled syringe (9 sources) Low Molecular Weight Heparin Start: End: inject 40 mg by subcutaneous injection once daily Enoxaparin Discontinued 40 MG SUBCUT Daily December 17, 2021 12:00am April 19, 2024 8:43am Start: 08-12-2021 End: 09-27-2023 inject 0.4 mL by subcutaneous injection once daily in the morning enOXAParin 40 MG injection Indications: DVT/PE prophylaxis Inject 0.4 mL under the skin daily every morning. 0 mL 08/12/2021 09/27/2023 Discontinued (Therapy completed) gadoterate Meglumine (DOTAREM) 5 MMOL/10ML injection 3-60 mL (1 source) Start: 09-19-2023 End: 09-19-2023 gadoterate Meglumine (DOTAREM) 5 MMOL/10ML injection 3-60 mL gadoteridol (PROHANCE) injection 15 mL (1 source) Start: 03-20-2020 End: 03-20-2020 gadoteridol (PROHANCE) injection 15 mL glimepiride 2 mg oral tablet (20 sources) Sulfonylurea Start: 09-21-2018 End: 01-23-2024 glimepiride (AMARYL) 2 mg tablet Take 2 mg by mouth as directed. 0 09/21/2018 01/23/2024 Discontinued (Other) Start: 09-21-2018 take 2 tablets by mo [facility] once daily in the morning, then take 1 tablet by mouth once daily glimepiride (AMARYL) 2 MG tablet Take 2 tablets by mouth every morning AND 1 tablet nightly. 180 tablet 2 12/15/2020 Active Comment on above: Take 2 mg by mouth a s directed. glucose 0.45 mg/mg oral gel (4 sources) Start: 09-24-2021 glucose 40 % Gel gel Take 15 g by mouth As directed PRN. 0 09/24/2021 Active Start: 09-24-2021 End: 09-27-2023 glucose 40 % Gel gel Take 15 g by mouth As directed PRN. 0 09/24/2021 09/27/2023 Discontinued (Therapy completed) 12 hr guaiFENesin 600 mg extended release oral tablet (4 sources) Start: 09-24-2021 End: 09-27-2023 take 1 tablet by mouth every twelve hours guaiFENesin 600 MG Tab SR 12 HR tablet SR Take 1 tablet by mouth every 12 hours. 09/24/2021 09/27/2023 Discontinued (Therapy completed) insulin glargine-yfgn 100 UNIT/ML Solution (4 sources) Start: 09-24-2021 End: 09-27-2023 insulin glargine-yfgn 100 UNIT/ML Solution Inject 39 Units under the skin at bedtime. 09/24/2021 09/27/2023 Discontinued (Therapy completed) Start: 09-24-2021 insulin glargi ne-yfgn 100 UNIT/ML Solution Inject 39 Units under the skin at bedtime. 0 09/24/2021 Active insulin lispro 100 UNIT/ML Solution (4 sources) Start: 09-25-2021 End: 09-27-2023 insulin lispro 100 UNIT/ML Solution lispro 5U pre-meal and 1U for every 50 above 150 with each meal. 09/25/2021 09/27/2023 Discontinued (Therapy completed) Start: 09-25-2021 insulin lispro 100 UNIT/ML Solution lispro 5U pre-meal and 1U for every 50 above 150 with each meal. 0 09/25/2021 Active iopamidol (ISOVUE-370) 76 % injection 18 mL (1 source) Start: 04-01-2020 End: 04-01-2020 iopamidol (ISOVUE-370) 76 % injection 18 mL iopamidol (ISOVUE-370) 76 % injection 75 mL (1 source) Start: 04-01-2020 End: 04-01-2020 iopamidol (ISOVUE-370) 76 % injection 75 mL losartan potassium 50 mg oral tablet (20 sources) Angiotensin 2 Receptor Hattie Start: 06-12-2018 End: 01-23-2024 take 1 tablet by mouth once daily losartan (COZAAR) 50 mg tablet Take 50 mg by mouth once daily. 0 06/12/2018 01/23/2024 Discontinued (Other) Comment on above: Take 50 mg by mouth once daily. oxyCODONE hydrochloride 5 mg oral tablet (3 sources) Opioid Agonist Start: 09-24-2021 End: 09-27-2023 take 0.5 tablet by mouth every six hours as needed for pain oxyCODONE 5 MG tablet Indications: Epidural abscess Take 0.5 tablets by mouth every 6 hours as needed for Moderate Pain or Severe Pain for up to 5 days. 5 tablet 09/24/2021 09/27/2023 Discontinued (Therapy completed) 20 ml sodium chloride 9 mg/ml injection (1 source) Start: 09-19-2023 End: 09-19-2023 Sodium chloride (PF) 0.9 % injection 1-100 mL tadalafil 5 mg oral tablet (20 sources) Phosphodiesterase 5 Inhibitor Start: 03-31-2018 End: 02-17-2024 Tadalafil 5 mg tablet Take 5 mg by mouth as needed. 0 03/31/2018 02/17/2024 Discontinued Comment on above: Take 5 mg by mouth a s needed. tamsulosin hydrochloride 0.4 mg oral capsule (9 sources) alpha-Adrenergic Hattie Start: 12-17-2021 End: 04-19-2024 take 0.4 mg by mouth twice daily Tamsulosin Discontinued 0.4 MG PO Twice daily December 17, 2021 12:00am April 19, 2024 8:44am Start: 09-24-2021 End: 09-27-2023 take 2 capsules by mouth at bedtime Tamsulosin HCl 0.4 MG capsule Take 2 capsules by mouth at bedtime. 09/24/2021 09/27/2023 Discontinued (Therapy completed) technetium sestamibi (CARDIOLITE) injection 30 millicurie (2 sources) Start: 06-12-2020 End: 06-12-2020 technetium sestamibi (CARDIOLITE) injection 30 millicurie Start: 06-11-2020 End: 06-11-2020 technetium sestamibi (CARDIO LITE) injection 30 millicurie Problems Active Problems Problem Classification Problem Date Documented Da te Episodic/Chronic Administrative/social admission (6 sources) Reduced mobility; Translations: [Other reduced mobility] 12-17-2021 Episodic Alcohol-related disorders (11 sources) Alcoholic fatty liver; Translations: [Alcoholic fatty liver] Onset: 4 05-29-2024 Chronic Anxiety disorders (20 sources) Anxiety; Translations: [Anxiety disorder, unspecified] Onset: 8 Resolved: 7 09-20-2016 Chronic Attention-deficit, conduct, and disruptive behavior disorders (20 sources) Attention deficit hyperactivity disorder, predominantly inattentive type; Translations: [Attention-deficit hyperactivity disorder, predominantly inattentive type] Onset: 7 12-07-2016 Chronic Bacterial infection; unspecified site (1 source) Methicillin resistant Staphylococcus aureus infection; Translations: [Methicillin resistant Staphylococcus aureus infection, unspecified site] 11-19-2024 Episodic Calculus of urinary tract (20 sources) Kidney stone; Translations: [Calculus of kidney] Onset: 2 Resolved: 7 09-20-2016 Episodic Chronic ulcer of skin (6 sources) Ulcer of back; Translations: [Pressure ulcer of sacral region, stage 3] 02-11-2022 Chronic Complication of device; implant or graft (3 sources) Pain; Translations: [Pain due to other internal prosthetic devices, implants and grafts, initial encounter] Onset: 5 06-08-2024 Episodic Conditions associated with dizziness or vertigo (1 source) Lightheadedness; Translations: [Lightheadedness] Episodic Deficiency and other anemia (4 sources) Pancytopenia; Translations: [Other pancytopenia] Onset: 2 08-17-2021 Chronic Delirium dementia and amnestic and other cognitive disorders (1 source) Cognitive disorder; Translations: [Cognitive dysfunction] Chronic Developmental disorders (1 source) Expressive dysphasia; Translations: [Expressive aphasia] Episodic Diabetes mellitus with complications (20 sources) Type 2 diabetes mellitus with hyperglycemia; Translations: [Hyperglycemia due to type 2 diabetes mellitus] Onset: 1 Chronic Diabetes mellitus without complication (20 sources) Type 2 diabetes mellitus without complication; Translations: [Type 2 diabetes mellitus without complications] Onset: 1 02-07-2017 Chronic Diabetes mellitus without complication (1 source) Impaired fasting glycaemia; Translations: [Impaired fasting glucose] Episodic Diseases of white blood cells (4 sources) Neutropenia; Translations: [Neutropenia, unspecified] Onset: 2 08-20-2021 Chronic Disorders of lipid metabolism (20 sources) Hyperlipidemia; Translations: [Mixed hyperlipidemia] Onset: 1 09-20-2016 Chronic Esophageal disorders (20 sources) Gastroesophageal reflux disease; Translations: [Gastro-esophageal reflux disease without esophagitis] Onset: 2 12-19-2018 Chronic Essential hypertension (20 sources) Hypertensive disorder; Translations: [Essential hypertension] Onset: 8 09-20-2016 Chronic Fever of unknown origin (2 sources) Fever; Translations: [Fever, unspecified fever cause] Episodic Fracture of upper limb (8 sources) Closed fracture of neck of metacarpal bone; Translations: [Displaced fracture of neck of unspecified metacarpal bone, initial encounter for closed fracture] 04-19-2024 Episodic Gastroduodenal ulcer (except hemorrhage) (11 sources) Duodenal ulcer without hemorrhage AND without perforation; Translations: [Duodenal ulcer, unspecified as acute or chronic, without hemorrhage or perforation] Onset: 2 10-20-2023 Chronic Genitourinary symptoms and ill-defined conditions (5 sources) Urge incontinence of urine; Translations: [Urge incontinence] Onset: 4 12-05-2023 Chronic Gout and other crystal arthropathies (20 sources) Gout; Translations: [Gout, unspecified] Onset: 8 09-20-2016 Chronic Malaise and fatigue (11 sources) Fatigue; Translations: [Chronic fatigue, unspecified] Onset: 4 02-28-2024 Chronic Malaise and fatigue (9 sources) Fatigue; Translations: [Fatigue, unspecified type] Episodic Miscellaneous mental health disorders (1 source) Confusional state; Translations: [Confusion] Chronic Mood disorders (20 sources) Depressive disorder; Translations: [Major depressive disorder, single episode, unspecified] Onset: 1 Resolved: 7 09-20-2016 Chronic Nutritional deficiencies (2 sources) Cobalamin deficiency; Translations: [Deficiency of other specified B group vitamins] 06-28-2024 Episodic Other connective tissue disease (2 sources) History of lumbar fusion; Translations: [Arthrodesis status] 09-19-2023 Episodic Other connective tissue disease (2 sources) Arthrodesis status; Translations: [Arthrodesis status] Onset: 4 Episodic Other connective tissue disease (4 sources) Hand pain; Translations: [Pain in right hand] 04-19-2024 Episodic Other diseases of bladder and urethra (8 sources) Neurogenic dysfunction of the urinary bladder; Translations: [Neuromuscular dysfunction of bladder, unspecified] Onset: 2 Chronic Other diseases of bladder and urethra (20 sources) Neurogenic bladder; Translations: [Neuromuscular dysfunction of bladder, unspecified] Onset: 4 03-30-2022 Chronic Other diseases of bladder and urethra (2 sources) Neuromuscular dysfunction of bladder, unspecified; Translations: [NEUROMUSCULR DYSFNCTION BLADDER UNS] Onset: 3 Chronic Other diseases of bladder and urethra (11 sources) Bladder dysfunction; Translations: [Neuromuscular dysfunction of bladder, unspecified] Onset: 2 10-20-2023 Chronic Other diseases of bladder and urethra (1 source) Hypertrophy of bladder; Translations: [Bladder wall thickening] Episodic Other ear and sense organ disorders (14 sources) Hearing loss; Translations: [Unspecified hearing loss, unspecified ear] Onset: 3 08-11-2023 Chronic Other gastrointestinal disorders (18 sources) Abdominal bloating 12-14-2021 Episodic Other gastrointestinal disorders (18 sources) Excessive flatus 12-14-2021 Episodic Other gastrointestinal disorders (1 source) Dysphagia, unspecified; Translations: [DYSPHAGIA UNSPECIFIED] Onset: 3 Episodic Other gastrointestinal disorders (2 sources) Urgent desire for stool; Translations: [Fecal urgency] 04-24-2024 Episodic Other inflammatory condition of skin (14 sources) Psoriatic arthritis; Translations: [Arthropathic psoriasis, unspecified] Onset: 8 08-11-2023 Chronic Other inflammatory condition of skin (12 sources) Psoriasis vulgaris; Translations: [Psoriasis vulgaris] Onset: 3 08-11-2023 Chronic Other liver diseases (20 sources) Cirrhosis of liver; Translations: [Unspecified cirrhosis of liver] Onset: 2 Chronic Other liver diseases (1 source) Fatty (change of) liver, not elsewhere classified; Translations: [Fatty (change of) liver, not elsewhere classified] Onset: 4 Chronic Other liver diseases (1 source) Increased aspartate transaminase level; Translations: [Elevation of levels of liver transaminase levels] Onset: 2 Episodic Other liver diseases (20 sources) Aspartate aminotransferase serum level raised 10-30-2021 Episodic Other lower respiratory disease (3 sources) Dyspnea; Translations: [Shortness of breath] Episodic Other lower respiratory disease (1 source) Cough; Translations: [Cough] Episodic Other male genital disorders (16 sources) Secondary erectile dysfunction; Translations: [Male erectile dysfunction, unspecified] Onset: 9 08-11-2023 Chronic Other nervous system disorders (1 source) Cognitive communication deficit; Translations: [COGNITIVE COMMUNICATION DEFICIT] Onset: 3 Chronic Other nervous system disorders (1 source) Loss of taste; Translations: [Loss of taste] Episodic Other nervous system disorders (1 source) Loss of sense of smell; Translations: [Loss of smell] Episodic Other nervous system disorders (4 sources) Other speech disturbances; Translations: [OTHER SPEECH DISTURBANCES] Onset: 3 Episodic Other nervous system disorders (2 sources) Other symptoms and signs involving cognitive functions and awareness; Translations: [Other signs and symptoms involving cognition] 06-28-2024 Episodic Other nutritional; endocrine; and metabolic disorders (1 source) Unintentional weight loss; Translations: [Weight loss, unintentional] Episodic Other screening for suspected conditions (not mental disorders or infectious disease) (20 sources) Culture positive for methicillin resistant Staphylococcus aureus; Translations: [Liver function tests abnormal] Onset: 8 Resolved: 4 01-18-2022 Episodic Comment on above: MRSA in urine 01/14/20 22 MRSA in urine 2021 Paralysis (9 sources) Incomplete paraplegia; Translations: [Paraplegia, incomplete] Onset: 3 12-17-2021 Chronic Residual codes; unclassified (20 sources) Daytime somnolence; Translations: [Other hypersomnia] Onset: 1 12-30-2020 Chronic Residual codes; unclassified (20 sources) Obstructive sleep apnea syndrome; Translations: [Obstructive sleep apnea (adult) (pediatric)] Onset: 4 01-23-2024 Chronic Residual codes; unclassified (1 source) Chill; Translations: [Chills] Episodic Residual codes; unclassified (5 sources) At risk for impaired skin integrity ; Translations: [Other specified personal risk factors, not elsewhere classified] 12-17-2021 Episodic Residual codes; unclassified (5 sources) Urinary catheter in situ; Translations: [Presence of other specified devices] 12-17-2021 Episodic Residual codes; unclassified (1 source) Other specified personal risk factors, not elsewhere classified; Translations: [Other specified conditions influencing health status] 02-11-2022 Episodic Residual codes; unclassified (2 sources) H/O Spinal surgery; Translations: [Other specified postprocedural states] 09-19-2023 Episodic Residual codes; unclassified (2 sources) Other specified postprocedural states; Translations: [Other specified postprocedural states] Onset: 4 Episodic Residual codes; unclassified (1 source) Failed encounter; Translations: [No-show for appointment] 06-14-2024 Episodic Skin and subcutaneous tissue infections (1 source) Local infection of the skin and subcutaneous tissue, unspecified; Translations: [Foreign body of buttock with infection, initial encounter] Onset: 5 Episodic Spondylosis; intervertebral disc disorders; other back problems (1 source) Cervical spondylosis with myelopathy; Translations: [Other spondylosis with myelopathy, cervical region] Chronic Superficial injury; contusion (18 sources) Foreign body in lower limb; Translations: [Superficial foreign body of lower back and pelvis, initial encounter] Onset: 5 09-24-2024 Episodic Thyroid disorders (20 sources) Hypothyroidism; Translations: [Hypothyroidism, unspecified] Onset: 9 12-19-2018 Chronic Thyroid disorders (2 sources) Disorder of thyroid gland; Translations: [Disorder of thyroid, unspecified] 06-28-2024 Episodic Unclassified (2 sources) Patient encounter status; Translations: [Screening PSA (prostate specific antigen)] Unclassified (1 source) POST COVID-19 CONDITION UNSPECIFIED; Translations: [POST COVID-19 CONDITION UNSPECIFIED] Onset: 3 Unclassified (1 source) CONTACT W/AND (SUSP) EXPOS COVID-19; Translations: [CONTACT W/AND (SUSP) EXPOS COVID-19] Onset: 3 Unclassified (11 sources) Patient on antidepressant monitoring plan Onset: 4 11-30-2023 Unclassified (11 sources) Baseline PHQ-9 Onset: 4 11-30-2023 Unclassified (1 source) No-show for appointment; Translations: [No-show for appointment] Onset: 4 Viral infection (2 sources) Viral disease; Translations: [Viral syndrome] Episodic Past or Other Problems Problem Classification Problem Date Documented Da te Episodic/Chronic Abdominal hernia (1 source) Ventral hernia without obstruction or gangrene; Translations: [VENTRAL HERNIA W/O OBST/GANGRENE] Onset: 09-27-2022 Episodic Abdominal pain (4 sources) Generalized abdominal pain; Translations: [Unspecified abdominal pain] Onset: 09-21-2022 Episodic Acute bronchitis (1 source) Acute bronchitis, unspecified; Translations: [ACUTE BRONCHITIS UNSPECIFIED] Onset: 09-27-2022 Episodic Deficiency and other anemia (20 sources) Anemia; Translations: [Anemia, unspecified] Onset: 08-02-2021 08-02-2021 Episodic Deficiency and other anemia (1 source) Other iron deficiency anemias; Translations: [OTHER IRON DEFICIENCY ANEMIAS] Onset: 09-27-2022 Episodic Deficiency and other anemia (13 sources) Macrocytic anemia; Translations: [Nutritional anemia, unspecified] Onset: 02-28-2024 02-28-2024 Episodic Fluid and electrolyte disorders (4 sources) Disorder of electrolytes; Translations: [Other disorders of electrolyte and fluid balance, not elsewhere classified] Onset: 08-08-2021 08-10-2021 Episodic Gastrointestinal hemorrhage (16 sources) Melena; Translations: [Melena] Onset: 08-01-2021 Resolved: 05-29-2024 08-17-2021 Episodic Genitourinary symptoms and ill-defined conditions (20 sources) Retention of urine; Translations: [Retention of urine, unspecified] Onset: 11-25-2021 Episodic Menopausal disorders (1 source) Hormone replacement therapy; Translations: [HORMONE REPLACEMENT THERAPY] Onset: 09-27-2022 Episodic Mood disorders (12 sources) Mood disorders Onset: 09-22-2023 Resolved: 03-13-2024 09-22-2023 Neoplasms of unspecified nature or uncertain behavior (6 sources) Neoplastic disease; Translations: [Neoplasm of unspecified behavior of bone, soft tissue, and skin] Onset: 12-04-2018 Episodic Osteoarthritis (20 sources) Osteoarthritis; Translations: [Unspecified osteoarthritis, unspecified site] Resolved: 09-20-2016 09-20-2016 Chronic Other aftercare (1 source) Other [facility]p (current) drug therapy; Translations: [OTH LONG-TERM CURRENT DRUG THERAPY] Onset: 09-27-2022 Episodic Other aftercare (1 source) terminal superintendent (current) use of oral hypoglycemic drugs; Translations: [LONG-TERM USE ORAL HYPOGLYCEMIC DX] Onset: 09-27-2022 Episodic Other aftercare (11 sources) Long-term current use of drug therapy; Translations: [Other buttermaker helper (current) drug therapy] Onset: 03-13-2024 03-13-2024 Episodic Other and unspecified benign neoplasm (20 sources) Polyp of colon; Translations: [Polyp of colon] Onset: 12-17-2021 Episodic Other ARMORED TRUCK DRIVER infection and poliomyelitis (20 sources) Epidural abscess; Translations: [Extradural and subdural abscess, unspecified] Onset: 08-21-2021 Resolved: 03-13-2024 Episodic Other connective tissue disease (1 source) Nontraumatic hematoma of soft tissue; Translations: [NONTRAUMATIC HEMATOMA SOFT TISSUE] Onset: 09-27-2022 Episodic Other connective tissue disease (11 sources) Muscle atrophy; Translations: [Muscle wasting and atrophy, not elsewhere classified, multiple sites] Onset: 09-25-2021 10-20-2023 Episodic Other connective tissue disease (1 source) Pain in right hand; Translations: [Pain in right hand] Onset: 04-19-2024 Episodic Other ear and sense organ disorders (12 sources) Otitis externa; Translations: [Unspecified otitis externa, unspecified ear] Onset: 08-11-2023 Resolved: 03-13-2024 08-11-2023 Chronic Other gastrointestinal disorders (20 sources) Occult blood in stools; Translations: [Other fecal abnormalities] Onset: 08-17-2019 Resolved: 05-29-2024 08-17-2019 Episodic Other gastrointestinal disorders (1 source) Fecal urgency; Translations: [Fecal urgency] Onset: 04-24-2024 Episodic Other inflammatory condition of skin (20 sources) Psoriasis; Translations: [Other psoriasis] Resolved: 09-20-2016 09-20-2016 Chronic Other lower respiratory disease (20 sources) Snoring; Translations: [Snoring] Onset: 12-30-2020 12-30-2020 Episodic Other male genital disorders (18 sources) Impotence; Translations: [Erectile dysfunction] Resolved: 09-20-2016 09-20-2016 Chronic Other male genital disorders (7 sources) Male erectile dysfunction, unspecified; Translations: [Impotence of organic origin] Resolved: 09-20-2016 09-20-2016 Chronic Other nervous system disorders (20 sources) Abnormal gait; Translations: [Unspecified abnormalities of gait and mobility] Onset: 02-21-2024 02-21-2024 Episodic Other non-traumatic joint disorders (4 sources) Effusion of joint of left knee; Translations: [Effusion, left knee] Onset: 09-25-2021 09-25-2021 Episodic Residual codes; unclassified (8 sources) Postoperative state; Translations: [Other specified postprocedural states] Onset: 01-02-2019 01-02-2019 Episodic Residual codes; unclassified (2 sources) Presence of other specified devices; Translations: [Other postprocedural status] Onset: 04-19-2024 02-11-2022 Episodic Residual codes; unclassified (1 source) Acquired absence of other specified parts of digestive tract; Translations: [ACQ ABSENCE OTH PART DIGESTV TRACT] Onset: 09-27-2022 Episodic Spondylosis; intervertebral disc disorders; other back problems (20 sources) Spinal stenosis of lumbar region; Translations: [Spinal stenosis, lumbar region with neurogenic claudication] Onset: 12-04-2018 12-14-2018 Episodic Unclassified (4 sources) Onset: 10-15-2021 Resolved: 09-22-2023 10-15-2021 Results Test Name Value Interpretation Reference Range Facility CNOVon 11-22-2024 CNOV Office Visit (UROLMF ) -- SARMAD ALMEIDA ([id number]) 1950 M Date Time Provider Department 11/22/24 1:00 PM [facility] During your visit today, we recorded the following information about you: Alex Newman MD 11/22/2024 1:41 PM Signed snm infection was seeing what would happen as patient was doing well after opening and secondary healing feels great working just noted some blood today discussed needs to be removed he does not want to remove it as working so well agreed to incise and drain and remove any unhealthy tissue and then he has time to make decision. Remove (I recommended) or keep doing this. Pt prepped and draped. 10 cc lidocaine injected along prior incision. incised down to IPG some necrotic tissue remove. one small bleeder cauterized. dressed. to change dressings daily. he will call me otherwise see in 1 month Alex Newman MD Allergies As of Date: 11/22/2024 Noted Allergy Reaction AMOXACILLIN (AMOXICILLIN) 04/13/2016 16 - Unknown AUGMENTIN (AMOXICILLIN-POT CLAVUL*04/13/2016 14 - Other: See Comments Comments: Nausea Date Reviewed: 11/22/2024 Reviewed by: Naida Ansari - Fully Assessed Reason for Visit: Follow Up [171] Primary Visit Diagnosis:Foreign body of buttock with infection, subsequent encounter [S30.850D, L08.9] Prescriptions as of 11/22/2024 - cyanocobalamin (VITAMIN B-12) 1,000 mcg tab Take 1 tablet by mouth once daily. - levothyroxine (SYNTHROID) 125 mcg tablet Take 1 tablet by mouth once daily. - lisinopril (ZESTRIL) 10 mg tablet Take 10 mg by mouth once daily. - GABAPENTIN, BULK, MISC 300 mg BID - pantoprazole DR (PROTONIX) 40 mg tablet Take 40 mg by mouth two times a day. - trospium (SANCTURA) 20 mg tablet Take 20 mg by mouth daily at bedtime. - multivitamin tablet Take 1 tablet by mouth once daily. - CPAP/BIPAP/OTHER autopap [id number] [facility] [place] [facility] Contact At Once! tiffin - allopurinol (ZYLOPRIM) 300 mg tablet Take 300 mg by mouth. - atorvastatin (LIPITOR) 20 mg tablet Take 20 mg by mouth. - metFORMIN (GLUCOPHAGE) 1,000 mg tablet Take 1,000 mg by mouth once daily. - SITagliptin (JANUVIA) 100 mg tablet Take 100 mg by mouth once daily. - buPROPion XL (WELLBUTRIN XL) 150 mg 24 hr tablet Take 150 mg by mouth. - venlafaxine ER (EFFEXOR XR) 75 mg 24 hr capsule Take 75 mg by mouth once daily. Meds Comments as of 01/23/2024: Pt poor historian with meds, initially stated meds were correct, [facility]en had list that was somewhat different than epic meds, all updated per Coleen's med list Problem List As Of Date 11/22/2024 Noted Resolved ADD (attention deficit hyperactivity disorder, *12/07/2016 Snoring [R06.83] 12/30/2020 Excessive daytime sleepiness [G47.19] 12/30/2020 Retention of urine [R33.9] 11/11/2023 HTN (hypertension) [I10] 01/23/2024 HLD (hyperlipidemia) [E78.5] 01/23/2024 Acquired hypothyroidism [E03.9] 01/23/2024 Depression [F32.A] 01/23/2024 ELLEN on CPAP [G47.33] 01/23/2024 Anemia [D64.9] 08/02/2021 GERD (gastroesophageal reflux disease) [K21.9] 09/25/2021 Gout [M10.9] 02/21/2024 Type 2 diabetes mellitus without complication (*03/24/2011 Gait difficulty [R26.9] 02/21/2024 Foreign body of buttock with infection [S30.850*09/24/2024 Encounter Status:Closed by ALEX NEWMAN on 11/22/24 [facility] 2024 CNPN Telephone (GLQ) -- SARMAD ALMEIDA ([id number]) 1950 Date Time Provider Department 11/06/24 ALEX NEWMAN GLQ During your visit today, we recorded the following information about you: Seferino Dunn 2024 3:40 PM Signed Patient was returning a call from earlier today regarding his appointment with Dr. Newman. Unfortunately I could not help him as there was no documentation as to what the call was for. Do either of you know why this patient was being called. Thank you, Orly Bello 11/07/2024 11:46 AM Signed Spoke with patient - Dr. Newman wanted him to scheduled for a apt this week or next. Scheduled [facility] on [facility]. Patient accepted. He also wanted to let Dr. Lira know that he is sorry that he has tried calling him 2 times now but he didn't keep his number to call him back. He wanted to let him know though that everything is fine, there is no seepage, and wound is healing fine. Thanks Allergies As of Date: 2024 Noted Allergy Reaction AMOXACILLIN (AMOXICILLIN) 04/13/2016 16 - Unknown AUGMENTIN (AMOXICILLIN-POT CLAVUL*04/13/2016 14 - Other: See Comments Comments: Nausea Date Reviewed: 10/09/2024 Reviewed by: Kimi Mckenna OCCA - Fully Assessed Reason for Visit: Patient Question [1477] Prescriptions as of 11/07/2024 - cyanocobalamin (VITAMIN B-12) 1,000 mcg tab Take 1 tablet by mouth once daily. - levothyroxine (SYNTHROID) 125 mcg tablet Take 1 tablet by mouth once daily. - lisinopril (ZESTRIL) 10 mg tablet Take 10 mg by mouth once daily. - GABAPENTIN, BULK, MISC 300 mg BID - pantoprazole DR (PROTONIX) 40 mg tablet Take 40 mg by mouth two times a day. - trospium (SANCTURA) 20 mg tablet Take 20 mg by mouth daily at bedtime. - multivitamin tablet Take 1 tablet by mouth once daily. - CPAP/BIPAP/OTHER autopap [id number] [facility] [facility] Contact At Once! tiffin - allopurinol (ZYLOPRIM) 300 mg tablet Take 300 mg by mouth. - atorvastatin (LIPITOR) 20 mg tablet Take 20 mg by mouth. - metFORMIN (GLUCOPHAGE) 1,000 mg tablet Take 1,000 mg by mouth once daily. - SITagliptin (JANUVIA) 100 mg tablet Take 100 mg by mouth once daily. - buPROPion XL (WELLBUTRIN XL) 150 mg 24 hr tablet Take 150 mg by mouth. - venlafaxine ER (EFFEXOR XR) 75 mg 24 hr capsule Take 75 mg by mouth once daily. Meds Comments as of 01/23/2024: Pt poor historian with meds, initially stated meds were correct, [facility] had list that was somewhat different than epic meds, all updated per Coleen's med list Problem List As Of Date 2024 Noted Resolved ADD (attention deficit hyperactivity disorder, *12/07/2016 Snoring [R06.83] 12/30/2020 Excessive daytime sleepiness [G47.19] 12/30/2020 Retention of urine [R33.9] 11/11/2023 HTN (hypertension) [I10] 01/23/2024 HLD (hyperlipidemia) [E78.5] 01/23/2024 Acquired hypothyroidism [E03.9] 01/23/2024 Depression [F32.A] 01/23/2024 ELLEN on CPAP [G47.33] 01/23/2024 Anemia [D64.9] 08/02/2021 GERD (gastroesophageal reflux disease) [K21.9] 09/25/2021 Gout [M10.9] 02/21/2024 Type 2 diabetes mellitus without complication (*03/24/2011 Gait difficulty [R26.9] 02/21/2024 Foreign body of buttock with infection [S30.850*09/24/2024 Encounter Status:Closed by SEFEIRNO DUNN on 11/07/24 [facility] 10-15-2024 CNPN Telephone ([employer]N) -- SARMAD ALMEIDA ([id number]) 1950 Date Time Provider Department 10/15/24 PARAMJIT LIRA During your visit today, we recorded the following information about you: Paramjit Lira MD 10/15/2024 11:39 AM Signed Patient was called this morning. He reports doing great He has no pain or erythema at the IPG site No discharge. Finished his antibiotics course yesterday Will see him in clinic in 2 weeks for wound check Patient was educated to call us back in case he feels something is going wrong or he has any signs or erythema, discharge or swelling at the IPG site. Paramjit Lira MD Fellow Allergies As of Date: 10/15/2024 Noted Allergy Reaction AMOXACILLIN (AMOXICILLIN) 04/13/2016 16 - Unknown AUGMENTIN (AMOXICILLIN-POT CLAVUL*04/13/2016 14 - Other: See Comments Comments: Nausea Date Reviewed: 10/09/2024 Reviewed by: Kimi Mceknna OCCA - Fully Assessed Reason for Visit: Patient Update [1234] Prescriptions as of 10/15/2024 - cyanocobalamin (VITAMIN B-12) 1,000 mcg tab Take 1 tablet by mouth once daily. - levothyroxine (SYNTHROID) 125 mcg tablet Take 1 tablet by mouth once daily. - lisinopril (ZESTRIL) 10 mg tablet Take 10 mg by mouth once daily. - GABAPENTIN, BULK, MISC 300 mg BID - pantoprazole DR (PROTONIX) 40 mg tablet Take 40 mg by mouth two times a day. - trospium (SANCTURA) 20 mg tablet Take 20 mg by mouth daily at bedtime. - multivitamin tablet Take 1 tablet by mouth once daily. - CPAP/BIPAP/OTHER autopap [id number] [facility] [place] Contact At Once! tiffin - allopurinol (ZYLOPRIM) 300 mg tablet Take 300 mg by mouth. - atorvastatin (LIPITOR) 20 mg tablet Take 20 mg by mouth. - metFORMIN (GLUCOPHAGE) 1,000 mg tablet Take 1,000 mg by mouth once daily. - SITagliptin (JANUVIA) 100 mg tablet Take 100 mg by mouth once daily. - buPROPion XL (WELLBUTRIN XL) 150 mg 24 hr tablet Take 150 mg by mouth. - venlafaxine ER (EFFEXOR XR) 75 mg 24 hr capsule Take 75 mg by mouth once daily. Meds Comments as of 01/23/2024: Pt poor historian with meds, initially stated meds were correct, [facility] had list that was somewhat different than [facility] meds, all updated per [facility]'s med list Problem List As Of Date 10/15/2024 Noted Resolved ADD (attention deficit hyperactivity disorder, *12/07/2016 Snoring [R06.83] 12/30/2020 Excessive daytime sleepiness [G47.19] 12/30/2020 Retention of urine [R33.9] 11/11/2023 HTN (hypertension) [I10] 01/23/2024 HLD (hyperlipidemia) [E78.5] 01/23/2024 Acquired hypothyroidism [E03.9] 01/23/2024 Depression [F32.A] 01/23/2024 ELLEN on CPAP [G47.33] 01/23/2024 Anemia [D64.9] 08/02/2021 GERD (gastroesophageal reflux disease) [K21.9] 09/25/2021 Gout [M10.9] 02/21/2024 Type 2 diabetes mellitus without complication (*03/24/2011 Gait difficulty [R26.9] 02/21/2024 Foreign body of buttock with infection [S30.850*09/24/2024 Encounter Status:Closed by PARAMJIT LIRA on 10/15/24 [facility] CNOVon 10-09-2024 CNOV Office Visit (UROLMN ) -- SARMAD ALMEIDA ([id number]) 1950 Date Time Provider Department 10/09/24 10:30 AM ALEX NEWMAN During your visit today, we recorded the following information about you: Kimi Mckenna OCCA 10/09/2024 11:04 AM Signed Post Void Residual done on patient with 75 cc residual volume remaining. notified. WILMAR Andersen Howard B, MD 10/09/2024 11:04 AM Signed 2 weeks sp debridement/irrigation of snm device.pt did not want out loosely approximated with one stitch doing well no pain no further drainage 5 more days of clinda (was mrsa) PE - healing very well. no tenderness or erythema suture removed will fu via phone in 1 week fu in person in 3 weeks Alex Newman MD Allergies As of Date: 10/09/2024 Noted Allergy Reaction AMOXACILLIN (AMOXICILLIN) 04/13/2016 16 - Unknown AUGMENTIN (AMOXICILLIN-POT CLAVUL*04/13/2016 14 - Other: See Comments Comments: Nausea Date Reviewed: 10/09/2024 Reviewed by: Kimi Mckenna OCCA - Fully Assessed Reason for Visit: Follow Up [171] Primary Visit Diagnosis:Retention of urine [R33.9] Other Visit Diagnosis:Screening for genitourinary condition [Z13.89] Order(s):UA DIP, URINE (POC) [6542685] Order #: [id number] Prescriptions as of 10/09/2024 - doxycycline hyclate (VIBRAMYCIN) 100 mg capsule Take 1 capsule (100 mg) by mouth two times a day for 14 days. - cyanocobalamin (VITAMIN B-12) 1,000 mcg tab Take 1 tablet by mouth once daily. - levothyroxine (SYNTHROID) 125 mcg tablet Take 1 tablet by mouth once daily. - lisinopril (ZESTRIL) 10 mg tablet Take 10 mg by mouth once daily. - GABAPENTIN, BULK, MISC 300 mg BID - pantoprazole DR (PROTONIX) 40 mg tablet Take 40 mg by mouth two times a day. - trospium (SANCTURA) 20 mg tablet Take 20 mg by mouth daily at bedtime. - multivitamin tablet Take 1 tablet by mouth once daily. - CPAP/BIPAP/OTHER autopap [id number] [facility] [place] Contact At Once! tiffin - allopurinol (ZYLOPRIM) 300 mg tablet Take 300 mg by mouth. - atorvastatin (LIPITOR) 20 mg tablet Take 20 mg by mouth. - metFORMIN (GLUCOPHAGE) 1,000 mg tablet Take 1,000 mg by mouth once daily. - SITagliptin (JANUVIA) 100 mg tablet Take 100 mg by mouth once daily. - buPROPion XL (WELLBUTRIN XL) 150 mg 24 hr tablet Take 150 mg by mouth. - venlafaxine ER (EFFEXOR XR) 75 mg 24 hr capsule Take 75 mg by mouth once daily. Meds Comments as of 01/23/2024: Pt poor historian with meds, initially stated meds were correct, [facility] had list that was somewhat different than [facility] meds, all updated per [facility]'s med list Problem List As Of Date 10/09/2024 Noted Resolved ADD (attention deficit hyperactivity disorder, *12/07/2016 Snoring [R06.83] 12/30/2020 Excessive daytime sleepiness [G47.19] 12/30/2020 Retention of urine [R33.9] 11/11/2023 HTN (hypertension) [I10] 01/23/2024 HLD (hyperlipidemia) [E78.5] 01/23/2024 Acquired hypothyroidism [E03.9] 01/23/2024 Depression [F32.A] 01/23/2024 ELLEN on CPAP [G47.33] 01/23/2024 Anemia [D64.9] 08/02/2021 GERD (gastroesophageal reflux disease) [K21.9] 09/25/2021 Gout [M10.9] 02/21/2024 Type 2 diabetes mellitus without complication (*03/24/2011 Gait difficulty [R26.9] 02/21/2024 Foreign body of buttock with infection [S30.850*09/24/2024 Encounter Status:Closed by ALEX NEWMAN on 10/09/24 [facility] 09-28-2024 CNPN Telephone ([employer]) -- SARMAD ALMEIDA ([id number]) 1950 M Date Time Provider Department 09/28/24 PARAMJIT LIRA During your visit today, we recorded the following information about you: Paramjit Lira MD 09/28/2024 6:17 PM Signed Patient was called to follow up with him for the culture that was collected on Tuesday. 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 I send Doxycycline to his pharmacy No answer Left a Voice message. Paramjit Lira MD Fellow Allergies As of Date: 09/28/2024 Noted Allergy Reaction AMOXACILLIN (AMOXICILLIN) 04/13/2016 16 - Unknown AUGMENTIN (AMOXICILLIN-POT CLAVUL*04/13/2016 14 - Other: See Comments Comments: Nausea Date Reviewed: 09/24/2024 Reviewed by: Shannon Banks, RN - Fully Assessed Prescriptions as of 09/28/2024 - doxycycline hyclate (VIBRAMYCIN) 100 mg capsule Take 1 capsule (100 mg) by mouth two times a day for 14 days. - sulfamethoxazole-trimethop rim (BACTRIM DS) 800-160 mg per tablet Take 1 tablet by mouth two times a day for 14 days. - cyanocobalamin (VITAMIN B-12) 1,000 mcg tab Take 1 tablet by mouth once daily. - levothyroxine (SYNTHROID) 125 mcg tablet Take 1 tablet by mouth once daily. - lisinopril (ZESTRIL) 10 mg tablet Take 10 mg by mouth once daily. - GABAPENTIN, BULK, MISC 300 mg BID - pantoprazole DR (PROTONIX) 40 mg tablet Take 40 mg by mouth two times a day. - trospium (SANCTURA) 20 mg tablet Take 20 mg by mouth daily at bedtime. - multivitamin tablet Take 1 tablet by mouth once daily. - CPAP/BIPAP/OTHER autopap [id number] [facility] [place] Contact At Once! tiffin - allopurinol (ZYLOPRIM) 300 mg tablet Take 300 mg by mouth. - atorvastatin (LIPITOR) 20 mg tablet Take 20 mg by mouth. - metFORMIN (GLUCOPHAGE) 1,000 mg tablet Take 1,000 mg by mouth once daily. - SITagliptin (JANUVIA) 100 mg tablet Take 100 mg by mouth once daily. - buPROPion XL (WELLBUTRIN XL) 150 mg 24 hr tablet Take 150 mg by mouth. - venlafaxine ER (EFFEXOR XR) 75 mg 24 hr capsule Take 75 mg by mouth once daily. Meds Comments as of 01/23/2024: Pt poor historian with meds, initially stated meds were correct, [facility] had list that was somewhat different than [facility] meds, all updated per [facility]'s med list Problem List As Of Date 09/28/2024 Noted Resolved ADD (attention deficit hyperactivity disorder, *12/07/2016 Snoring [R06.83] 12/30/2020 Excessive daytime sleepiness [G47.19] 12/30/2020 Retention of urine [R33.9] 11/11/2023 HTN (hypertension) [I10] 01/23/2024 HLD (hyperlipidemia) [E78.5] 01/23/2024 Acquired hypothyroidism [E03.9] 01/23/2024 Depression [F32.A] 01/23/2024 ELLEN on CPAP [G47.33] 01/23/2024 Anemia [D64.9] 08/02/2021 GERD (gastroesophageal reflux disease) [K21.9] 09/25/2021 Gout [M10.9] 02/21/2024 Type 2 diabetes mellitus without complication (*03/24/2011 Gait difficulty [R26.9] 02/21/2024 Foreign body of buttock with infection [S30.850*09/24/2024 Encounter Status:Closed by PARAMJIT LIRA on 09/28/24 [facility] W[facility] CULTon 09-15 [facility] B[facility]ERIA WND CULT ORGANISM ID: [address] [facility] B[facility] WND CULT Rare Methicillin-R ESISTANT Staphylococcus aureus (MRSA) [facility]IA WND CULT GRAM STAIN: Rare Gram positive cocci Abnormal [facility] B[facility]IA WND CULT No Polymorphonucle ar Leukocytes Abnormal [facility] BACTERIA WND CULT ORGANISM ID: 1 (METHICILLIN RESISTANT STAPHYLOCOCCUS AUREUS) ANTIBIOTIC INTERPRETATION MICHEL STATUS REFERENCE RANGE Abnormal [facility] BACTERIA WND CULT Oxacillin R >=4 F Susceptible <=2 , Resistant >[address] [facility] BACTERIA WND CULT Oxacillin resistan t Staphylococci are resistant to all beta-lactam antibiotics (except new cephalosporins with anti-MRSA activity i.e. ceftaroline) [facility] BACTERIA WND CULT Erythromycin R F Abnormal [facility] BACTERIA WND CULT Clindamycin R F Abnormal [facility] Detected [facility] BACTERIA WND CULT Trimeth sulfameth R >=320 F Susceptible <=40 , Resistant >40 Abnormal [facility] B[facility]IA WND CULT Vancomycin S 1 F Susceptible <=2 , Intermediate >2 , Resistant >8 Abnormal [facility] BACTERIA WND CULT Daptomycin S 0.25 F Susceptible <=1 , Nonsusceptible >1 Abnormal [facility] B[facility] WND C[facility] Linezolid S 1 F Susceptible <=4 , Resistant >4 Abnormal [facility] BACTERIA WND CULT Rifampin S <=0.5 F Susceptible <=1 , Intermediate >1 , Resistant >[address] [facility] BACTERIA WND CULT Rifampin should no t be used alone for antimicrobial therapy. [facility] BACTERIA WND CULT Levofloxacin R >= 8 F Susceptible <=1 , Intermediate >1 , Resistant >[address] [facility] BACTERIA WND CULT Tetracycline S <= 1 F Susceptible <=4 , Intermediate >4 , Resistant >[address] [facility] BACTERIA WND CULT Doxycycline S <=0 .5 F Susceptible <=4 , Intermediate >4 , Resistant >[address] [facility] Interpretation and review of laboratory results Abnormal [facility] Original [facility]: [facility] GLORIA Telephone (RADHA) -- SARMAD ALMEIDA ([id number]) 1950 M Date Time Provider Department 09/26/24 PARAMJIT LIRA During your visit today, we recorded the following information about you: Paramjit Lira MD 09/26/2024 12:35 PM Signed Patient was called today to follow up with him after having debridement for the incision over his IPG. He is doing good He has no fevers or chills No pain at the surgical site No bother from the device Changing dressing daily with no evidence of bleeding according to the patient Taking bactrim twice daily Patient was educated to call back incase he is worried or concerned or is having any new symptoms He reports understanding Paramjit Lira MD Fellow Allergies As of Date: 09/26/2024 Noted Allergy Reaction AMOXACILLIN (AMOXICILLIN) 04/13/2016 16 - Unknown AUGMENTIN (AMOXICILLIN-POT CLAVUL*04/13/2016 14 - Other: See Comments Comments: Nausea Date Reviewed: 09/24/2024 Reviewed by: Shannon Banks RN - Fully Assessed Prescriptions as of 09/26/2024 - sulfamethoxazole-trimethop rim (BACTRIM DS) 800-160 mg per tablet Take 1 tablet by mouth two times a day for 14 days. - cyanocobalamin (VITAMIN B-12) 1,000 mcg tab Take 1 tablet by mouth once daily. - levothyroxine (SYNTHROID) 125 mcg tablet Take 1 tablet by mouth once daily. - lisinopril (ZESTRIL) 10 mg tablet Take 10 mg by mouth once daily. - GABAPENTIN, BULK, MISC 300 mg BID - pantoprazole DR (PROTONIX) 40 mg tablet Take 40 mg by mouth two times a day. - trospium (SANCTURA) 20 mg tablet Take 20 mg by mouth daily at bedtime. - multivitamin tablet Take 1 tablet by mouth once daily. - CPAP/BIPAP/OTHER autopap [id number] [facility] Contact At Once! tiffin - allopurinol (ZYLOPRIM) 300 mg tablet Take 300 mg by mouth. - atorvastatin (LIPITOR) 20 mg tablet Take 20 mg by mouth. - metFORMIN (GLUCOPHAGE) 1,000 mg tablet Take 1,000 mg by mouth once daily. - SITagliptin (JANUVIA) 100 mg tablet Take 100 mg by mouth once daily. - buPROPion XL (WELLBUTRIN XL) 150 mg 24 hr tablet Take 150 mg by mouth. - venlafaxine ER (EFFEXOR XR) 75 mg 24 hr capsule Take 75 mg by mouth once daily. Meds Comments as of 01/23/2024: Pt poor historian with meds, initially stated meds were correct, [facility] had list that was somewhat different than epic meds, all updated per [facility]'s med list Problem List As Of Date 09/26/2024 Noted Resolved ADD (attention deficit hyperactivity disorder, *12/07/2016 Snoring [R06.83] 12/30/2020 Excessive daytime sleepiness [G47.19] 12/30/2020 Retention of urine [R33.9] 11/11/2023 HTN (hypertension) [I10] 01/23/2024 HLD (hyperlipidemia) [E78.5] 01/23/2024 Acquired hypothyroidism [E03.9] 01/23/2024 Depression [F32.A] 01/23/2024 ELLEN on CPAP [G47.33] 01/23/2024 Anemia [D64.9] 08/02/2021 GERD (gastroesophageal reflux disease) [K21.9] 09/25/2021 Gout [M10.9] 02/21/2024 Type 2 diabetes mellitus without complication (*03/24/2011 Gait difficulty [R26.9] 02/21/2024 Foreign body of buttock with infection [S30.850*09/24/2024 Encounter Status:Closed by PARAMJIT LIRA on 09/26/[address] [facility] SARMAD ALMEIDA ([id number]) 1950 M Date Time Provider Department 09/25/24 PARAMJIT LIRA UROLYSSA During your visit today, we recorded the following information about you: Paramjit Lira MD 09/25/2024 9:47 AM Signed Patient was called this morning to follow up with him after he was seen in clinic yesterday for concern of wound infection at the site of IPG and debridement was done and was given antibiotics No answer Left a Paramjit Lira MD Fellow Allergies As of Date: 09/25/2024 Noted Allergy Reaction AMOXACILLIN (AMOXICILLIN) 04/13/2016 16 - Unknown AUGMENTIN (AMOXICILLIN-POT CLAVUL*04/13/2016 14 - Other: See Comments Comments: Nausea Date Reviewed: 09/24/2024 Reviewed by: Shannon Banks RN - Fully Assessed Prescriptions as of 09/25/2024 - sulfamethoxazole-trimethop rim (BACTRIM DS) 800-160 mg per tablet Take 1 tablet by mouth two times a day for 14 days. - cyanocobalamin (VITAMIN B-12) 1,000 mcg tab Take 1 tablet by mouth once daily. - levothyroxine (SYNTHROID) 125 mcg tablet Take 1 tablet by mouth once daily. - lisinopril (ZESTRIL) 10 mg tablet Take 10 mg by mouth once daily. - GABAPENTIN, BULK, MISC 300 mg BID - pantoprazole DR (PROTONIX) 40 mg tablet Take 40 mg by mouth two times a day. - trospium (SANCTURA) 20 mg tablet Take 20 mg by mouth daily at bedtime. - multivitamin tablet Take 1 tablet by mouth once daily. - CPAP/BIPAP/OTHER autopap [id number] [facility] [employer] t[place]in - allopurinol (ZYLOPRIM) 300 mg tablet Take 300 mg by mouth. - atorvastatin (LIPITOR) 20 mg tablet Take 20 mg by mouth. - metFORMIN (GLUCOPHAGE) 1,000 mg tablet Take 1,000 mg by mouth once daily. - SITagliptin (JANUVIA) 100 mg tablet Take 100 mg by mouth once daily. - buPROPion XL (WELLBUTRIN XL) 150 mg 24 hr tablet Take 150 mg by mouth. - venlafaxine ER (EFFEXOR XR) 75 mg 24 hr capsule Take 75 mg by mouth once daily. Meds Comments as of 01/23/2024: Pt poor historian with meds, initially stated meds were correct, Coleen had list that was somewhat different than [facility] meds, all updated per Coleen's med list Problem List As Of Date 09/25/2024 Noted Resolved ADD (attention deficit hyperactivity disorder, *12/07/2016 Snoring [R06.83] 12/30/2020 Excessive daytime sleepiness [G47.19] 12/30/2020 Retention of urine [R33.9] 11/11/2023 HTN (hypertension) [I10] 01/23/2024 HLD (hyperlipidemia) [E78.5] 01/23/2024 Acquired hypothyroidism [E03.9] 01/23/2024 Depression [F32.A] 01/23/2024 ELLEN on CPAP [G47.33] 01/23/2024 Anemia [D64.9] 08/02/2021 GERD (gastroesophageal reflux disease) [K21.9] 09/25/2021 Gout [M10.9] 02/21/2024 Type 2 diabetes mellitus without complication (*03/24/2011 Gait difficulty [R26.9] 02/21/2024 Foreign body of buttock with infection [S30.850*09/24/2024 Encounter Status:Closed by PARAMJIT LIRA on 09/25/24 Normal [facility] Bacteria Wnd Culton 09-24-19 Bacteria identified Cx Nom (Wound) ORGANISM ID: 1 Rare Methicillin-RESISTANT Staphylococcus aureus (MRSA) GRAM STAIN: Rare Gram positive cocci No Polymorphonuclear Leukocytes ORGANISM ID: 1 (METHICILLIN RESISTANT STAPHYLOCOCCUS AUREUS) ANTIBIOTIC INTERPRETATION MICHEL STATUS REFERENCE RANGE Oxacillin R >=4 F Susceptible <=2 , Resistant >2 Oxacillin resistant Staphylococci are resistant to all beta-lactam antibiotics (except new cephalosporins with anti-MRSA activity i.e. ceftaroline) Erythromycin R F Clindamycin R F Inducible clindamycin resistance detected. Trimeth sulfameth R >=320 F Susceptible <=40 , Resistant >40 Vancomycin S 1 F Susceptible <=2 , Intermediate >2 , Resistant >8 Daptomycin S 0.25 F Susceptible <=1 , Nonsusceptible >1 Linezolid S 1 F Susceptible <=4 , Resistant >4 Rifampin S <=0.5 F Susceptible <=1 , Intermediate >1 , Resistant >2 Rifampin should not be used alone for antimicrobial therapy. Levofloxacin R >=8 F Susceptible <=1 , Intermediate >1 , Resistant >2 Tetracycline S <=1 F Susceptible <=4 , Intermediate >4 , Resistant >8 Doxycycline S <=0.5 F Susceptible <=4 , Intermediate >4 , Resistant >8 Abnormal [facility] Comment on above: Performed By: #### [id number] ####[facility] LABCLIA [id number] [address] [facility] CNOVon 09-24-2024 CNOV Office Visit (UROSMN ) -- SARMAD ALMEIDA ([id number]) 1950 M Date Time Provider Department 09/24/24 12:00 PM ALEX NEWMAN UROSMN During your visit today, we recorded the following information about you: Shannon Banks RN 09/24/2024 3:21 PM Signed Patient ID with (2) Identifiers, Verified by: Shannon Banks RN Actual procedure/procedure scheduled: Yes Performing provider/scheduled provider: Yes Patient was roomed in: Q9- 11 Tent Finisher offered:Patient declines Patient arrived in the room at: 12:00 Patient ready for procedure: 12:30 The procedure started at ( Time Only): 12:50 The procedure ended at: 1315 Was the procedure delayed: Yes, doctor in other room ProNox Utilized: No The patient left the procedure room at: 1345 Shannon Banks RN PRE IANDD NURSE ASSESSMENT Latex Allergy: No Heart valve replacement: No Joint replacement: No Shannon Banks RN PROCEDURE PREP Patient I.D. with two(2) identifiers verified by: Shannon Banks RN 154/76 P 80 Shannon Banks RN UNIVERSAL PROTOCOL / SAFETY CHECKLIST Procedure to be performed: I and D Sign in Communication: Completed Time Out: Team Confirms the Correct Patient, Correct Procedure, Correct Site and Site Marking, Correct Position (if applicable) Sign Out Discussion: Completed Shannon Banks RN POST IANDD NURSE ASSESSMENT Present along with physician during procedure exam. Shannon Banks RN Condition Post Procedure: satisfactory Level of consciousness: awake, oriented PATIENT EDUCATION The following was evaluated; Motivation to Learn: Eager Family/Significant Other Support: None - Unavailable/disinterested Cognitive Ability: Alert/Oriented Method of Instruction: Individual instruction The Following Influencing Factors Were Barriers To This Education Session: None The Following Physical Limitations Were Barriers To This Education Session: None Instruction Provided To: Patient Slab Lifting Engineer Present: not applicable Discipline: Nursing Learning Topic: Survival Skills- Symptom Management Patient Evaluation: Verbalizes understanding: Yes Supplemental Material Given: surgeon spoke with him Instructed By Shannon Banks RN In Department Urology. Alex Newman MD 10/04/2024 9:24 AM Addendum Surgeon(s) and Sweeper Operator Highways(s): Dr. Rambo Lira MD [facility] Fellow Preoperative Diagnosis: OAB, Postoperative Diagnosis: * Same PROCEDURE AND ANESTHESIA TYPE: Debridement of skin and tissue above the Implantable pulse generator OPERATIVE INDICATIONS: This is a very pleasant patient with a history of OAB . He had his interstim implanted on 03/01/24 he had >50% improvement in his symptoms.He is here today for a concern as the skin above the IPG site has erythema and some necrotic tissus . The procedure materials, personnel, indications, alternatives, risks, and benefits were described in detail. Consent was obtained. The patient now presents for definitive therapy. OPERATIVE FINDINGS: Debridement of skin and subcutaneous tissues Estimated Blood Loss: 5 cc PROCEDURE AND TECHNIQUE: The patient was carefully placed in the prone position, and her gluteal area was prepped and draped in standard sterile fashion. A timeout was performed and the patient, side, procedure and indication were reviewed and correct. The operative field was prepped and draped. The incision above the IPG site on the right gluteal area, showed areas of erythema and necrosis. After discussion with the patient about the risks, we performed debridement pf some skin and subcutaneous tissues and removal of all the necrotic tissues, using scissors to a depth of about cm. However, after debridement the pocket of the IPG was exposed and IPG was seen. We then irrigated the wound with normal saline. We discussed that typically we would proceed to remove the entire device and lead and that there were risks of keeping the device in at this point as it is exposed. However, the patient is very satisfied with the device and prefers not to take it out at this point. He has no fevers or pain from the device. After long discussion, we decided to keep the device in and see if things would heal. One simple stitch of nylon was used just to approximate the skin (keeping the sking edge apart so it can drain to the outside). Dressing was applied No complications. I/primary surgeon/proceduralist performed the procedure with assistance. Plan: Antibiotics Bactrim was started for 14 days Will keep close monitoring with daily phone calls and 2 weeks follow up Patient was educated to call back or present back if he develops signs of infections, fevers or pain Alex Newman MD Allergies As of Date: 09/24/2024 Noted Allergy Reaction AMOXACILLIN (AMOXICILLIN) 04/13/2016 16 - Unknown AUGMENTIN (AMOXICILLIN-POT CLAVUL*04/13/2016 14 - Other: See Comm (more content not included)... Normal [facility] CNOV Office Visit (UROLMN ) -- SARMAD ALMEIDA ([id number]) 1950 M Date Time Provider Department 09/24/24 11:00 AM ALEX NEWMAN During your visit today, we recorded the following information about you: Pulse Blood pressure Weight Height 88/minute 153/79 83 kg 1.727 m Alex Newman MD 10/04/2024 9:23 AM Addendum snm placed for urinary retention in February. 80% improvement in voiding and has not really changed programs. For last 3 weeks noted skin over area did not look normal. incision a bit red - one area fluctuant no tenderness/erythema over the rest of the site. will open up fluctuant site rbapc removed. IC done. if grossly infected may have to remove entire thing. Alex Newman MD Allergies As of Date: 09/24/2024 Noted Allergy Reaction AMOXACILLIN (AMOXICILLIN) 04/13/2016 16 - Unknown AUGMENTIN (AMOXICILLIN-POT CLAVUL*04/13/2016 14 - Other: See Comments Comments: Nausea Date Reviewed: 09/24/2024 Reviewed by: Shannon Banks RN - Fully Assessed Reason for Visit: Follow Up [171] Primary Visit Diagnosis:Retention of urine [R33.9] Other Visit Diagnoses:Screening for genitourinary condition [Z13.89] Foreign body of buttock with infection, initial encounter [S30.850A, L08.9] Order(s):UA DIP, URINE (POC) [[id number]] Order #: [id number] Prescriptions as of 10/04/2024 - doxycycline hyclate (VIBRAMYCIN) 100 mg capsule Take 1 capsule (100 mg) by mouth two times a day for 14 days. - sulfamethoxazole-trimethop rim (BACTRIM DS) 800-160 mg per tablet Take 1 tablet by mouth two times a day for 14 days. - cyanocobalamin (VITAMIN B-12) 1,000 mcg tab Take 1 tablet by mouth once daily. - levothyroxine (SYNTHROID) 125 mcg tablet Take 1 tablet by mouth once daily. - lisinopril (ZESTRIL) 10 mg tablet Take 10 mg by mouth once daily. - GABAPENTIN, BULK, MISC 300 mg BID - pantoprazole DR (PROTONIX) 40 mg tablet Take 40 mg by mouth two times a day. - trospium (SANCTURA) 20 mg tablet Take 20 mg by mouth daily at bedtime. - multivitamin tablet Take 1 tablet by mouth once daily. - CPAP/BIPAP/OTHER autopap [id number] [facility] Contact At Once! tiffin - allopurinol (ZYLOPRIM) 300 mg tablet Take 300 mg by mouth. - atorvastatin (LIPITOR) 20 mg tablet Take 20 mg by mouth. - metFORMIN (GLUCOPHAGE) 1,000 mg tablet Take 1,000 mg by mouth once daily. - SITagliptin (JANUVIA) 100 mg tablet Take 100 mg by mouth once daily. - buPROPion XL (WELLBUTRIN XL) 150 mg 24 hr tablet Take 150 mg by mouth. - venlafaxine ER (EFFEXOR XR) 75 mg 24 hr capsule Take 75 mg by mouth once daily. Meds Comments as of 01/23/2024: Pt poor historian with meds, initially stated meds were correct, [facility] had list that was somewhat different than [facility] meds, all updated per Coleen's med list Problem List As Of Date 09/24/2024 Noted Resolved ADD (attention deficit hyperactivity disorder, *12/07/2016 Snoring [R06.83] 12/30/2020 Excessive daytime sleepiness [G47.19] 12/30/2020 Retention of urine [R33.9] 11/11/2023 HTN (hypertension) [I10] 01/23/2024 HLD (hyperlipidemia) [E78.5] 01/23/2024 Acquired hypothyroidism [E03.9] 01/23/2024 Depression [F32.A] 01/23/2024 ELLEN on CPAP [G47.33] 01/23/2024 Anemia [D64.9] 08/02/2021 GERD (gastroesophageal reflux disease) [K21.9] 09/25/2021 Gout [M10.9] 02/21/2024 Type 2 diabetes mellitus without complication (*03/24/2011 Gait difficulty [R26.9] 02/21/2024 Foreign body of buttock with infection [S30.850*09/24/2024 Encounter Status:Closed by ALEX NEWMAN on 09/24/24 Normal [facility] Urology Office/Clinic Noteon 09-13-2024 Urology Office/Clinic Note Urology Office/Clinic Note Chief Complaint 10 week follow up HPI Staff 10 wk neurogenic bladder f/u, s/p SNM interstim. Prior OV: given Bactrim DS bid x10 days d/t swelling/infection around SNM implant CICs 3-4x a day *no maintenance uro meds Pt would like to be back on his trospium that he stopped after his last procedure. Dysuria: denies Incomplete bladder emptying: yes, CIC Hematuria: denies Frequency: denies Urgency: sometimes at night Nocturia: 3 x a night self cath Stream: straining about half the time, has a weak stream, has some stop and go Leaking: yes mostly at night Post void dripping: denies Wearing pads/ Depends: depends daily, changes them once a day Urge incontinence: yes, but just leaking Stress incontinence: denies Incontinence without Sensory Awareness: denies Abdominal pain: denies Flank pain: denies Sexual complaints: _ History of Present Illness I have reviewed the previous health record information and history for this patient from Dr. Ortiz and external providers I have reviewed and verified the staff HPI to be accurate for this encounter. Review of Systems PHQ Score Initial Depression Screen Score: 0 SCORE ROS - Provider Constitutional: denies weight loss, denies hot flashes. Eyes: denies eye problems. Gastrointestinal: denies nausea, denies vomiting. Cardiovascular: denies chest pain or angina. Integumentary: no dryness Musculoskeletal: denies musculoskeletal symptoms. ENMT: denies otolaryngeal symptoms. Respiratory: no shortness of breath. Heme/Lymph: denies easy bleeding tendency, denies easy bruising tendency. Psychiatric: no confusion, no anxiety. Genitourinary: See HPI. Physical Exam Vitals & Measurements HR: 86(Peripheral) RR: 16 BP: 120/76 HT: 69 in HT: 175 cm WT: 86.9 kg WT: 191.581 lb BMI: 28.38 General Appearance: alert, no distress, well nourished, well developed male. A ~ 4 x 2 cm fluctuant, dark purple fluid collection concerning for hematoma at incision site, minimally tender. No purulence expressed, no surrounding erythema. Belt appears just superior to this. 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 during my leave. 1. Neurogenic bladder (N31.9: Neuromuscular dysfunction of bladder, unspecified) PVR (cc): 12/10/22 - *random scan 05/26/23 - 08/03/23 *random scan 12/2021 - L URS, cysto - nonobstructing prostate Pt began CIC 07/05/22 after removal of chronic mcgrath since 09/2021 secondary to spinal abscess and lower ext paralysis. Has recovered substantially. Hx of small bladder capacity, getting 120-240 cc at a time with CIC q4h. S/p Staged SNM/Interstim X implantation 03/01/[address] Newman at [facility] due to my leave. stage 1 trial was 3 wks. SNM implant got infected post stage 2. 06/22/24: Took doxycycline x1wk which improved pain. Now reports swelling in area of implant, similar to start of infection. Prescribed an additional Bactrim DS bid x10 days at prior OV. No longer taking Trospium 20mg qhs. SNM is currently off - worked well when it was on, turned it off due to pain/infection. [1] TODAY: Pt unable to provide urine sample today. IPSS 18 (22). Has turned on interstim. Feels it is working ok but sxs still not satisfactory. Voiding on his own a little bit, still self cathing 3-4x/day. Reports large residuals. Does not recall if he was able to void on his own during trial. Has followed up with PAs at [facility] for postop infection and not Dr Newman per pt. Last visit, Bactrim DS was given by me last visit for suspected infection which he stated improved swelling. Returned after antibiotics completed. He does not recall what happened during visit 07/24. Pt consents to picture documentation of bruise and sending picture to Dr Newman. Pt would like to restart Trospium d/t mild dribbling at night, understands this will relax his bladder making it more difficult to void on his own. Follow up after below or sooner if needed. Pt understands and agrees with plan. -Restart Trospium 20mg qhs. SEs discussed. Sent to [facility]. -Will consult with Dr Newman. Pt to make an appt with him for f/u regarding Interstim battery site and effectiveness. Encouraged pt to continue making programming tweaks with Rep and Dr. Newman for maximal effectiveness. Follow-up With When Contact Information Angel CALDERON, Dina James, URL, URO Additional Instructions: pending consult with Dr Newman Patient Education Clean Intermittent Catheterization, Male Neurogenic Bladder I, Maria Antonia Ferraro, personally scribed for Dr. Ortiz on 09/13/2024 10:10:33. . Documentation recorded by the scribe, Maria Antonia Ferraro, accurately reflects the services(s) I performed and decisions made by me. Authenticate (more content not included)... Normal [facility] Comment on above: Result Comment: Elec tronically Signed By: Angel CALDERON, Dina Johnston.br\Date and Time Signed: 09/13/24 11:58 EST ALL CBC WITH AUTO DIFFon BASOPHILS ABSOLUTE AUTO 0 [facility] Basophils/100 WBC (Bld) 0.3 % 0.2 - 2.0 % [facility] Eosinophils/100 WBC (Bld) 3.6 % 0.9 - 7.0 % [facility] Erythrocyte distribution width (RBC) [Ratio] 14.5 % 11.0 - 15.0 % [facility] Hematocrit (Bld) [Volume fraction] 39.1 % Low 42.0 - 54.0 % [facility] Hemoglobin (Bld) [Mass/Vol] 12.9 g/dL Low 14.0 - 18.0 g/dL [facility] IMMATURE GRANULOCYTES ABS AUTO 0.02 [facility] Immature granulocytes/100 WBC (Bld) 0.3 % 0.0 - 0.5 % [facility] LYMPHOCYTES ABSOLUTE AUTO 1.9 [facility] Lymphocytes/100 WBC (Bld) 28.7 % 20.5 - 60.0 % [facility] MCH (RBC) [Entitic mass] 31.7 pg 25.9 - 34.0 pg [facility] MCHC (RBC) [Mass/Vol] 33 g/dL 29.9 - 35.2 g/dL [facility] MCV (RBC) [Entitic vol] 96.1 fL High 80.0 - 94.0 fL [facility] MONOCYTES ABSOLUTE AUTO 0.5 [facility] Monocytes/100 WBC (Bld) 7.6 % 1.7 - 12.0 % [facility] NEUTROPHILS ABSOLUTE AUTO 4 [facility] Neutrophils/100 WBC (Bld) 59.5 % 43.0 - 75.0 % [facility] Platelet mean volume (Bld) [Entitic vol] 10 fL 9.5 - 13.5 fL [facility] EO # 0.2 [facility] PLT 237 [facility] RBC 4.07 Low [facility] WBC 6.7 [facility] MLR HEMOGLOBIN A1Con 024 Glucose [Mass/Vol] 140 mg/dL [facility] HbA1c (Bld) [Mass fraction] 6.5 % High 4.5 - 6.2 % [facility] Comment on above: ADA RECOMMENDED LIMI T 4.0 - 6.0 ADA THERAPEUTIC TARGET < 7.0 ACTION SUGGESTED > 7.0 No Panel Informationon 07-26 Interpretation and review of laboratory results Abnormal [facility] CLINIS[facility] CNOVon 07-20-2024 CNOV Office Visit (UROLIN ) -- DAMONPHONGSARMAD French ([id number]) 1950 M Date Time Provider Department 07/20/24 2:00 PM NASRA CUEVA During your visit today, we recorded the following information about you: Nasra Cueva MD 07/20/2024 3:58 PM Signed [facility]IC[facility] RECONSTRUCTIVE SURGERY HISTORY OF PRESENT ILLNESS: Sarmad Almeida is a 73 year old male hx of incomplete emptying, urinary urgency, fecal urgency s/p SNM February 2024 here today for interstim review. 04/24/24 visit per Cindy POLANCO notes, Performing CIC 4-5x. Voiding volitionally more often. But still needing to rely on catheters about as much as pre op. Has been on Program 5 since implant. Also feeling more urgency with bowels. Complex programming done today INTERROGATION: 1) -0, +3 2) -1, +3 3) -2, +0 4) -3, +0 5) -0, -1, +3 - INITIAL PROGRAM at 2.3 6) -1, -2, +3 - MOVED TO at 5.8 felt lower buttcheek 7) -2, -3, +0 06/08/24 visit per Cindy Vo YARROW GATHERER notes, Today pt reports pain at/around IPG site began 3 days ago described as burning sensation Fall 3 weeks ago - forward w/broken nose/hand Slight improvement with therapy turned off but pain still present Denies drainage, denies fevers +minimal redness and slight swelling Battery: OK Impedance: <4k in all leads Reviewed images uploaded to Telly messaged by patient - incision does not appear infected, pt does endorse concern for possible infection Will trial Doxycycline Allergy to Amoxicillin and lisinopril interacts with Bactrim Keep therapy off at this time Pillow for support Tylenol/Ibuprofen as needed Today, reports his implant site became infected, treated with doxycycline. States when he pushes on implant site he notices some pain (minor but there), he just want to make sure he doesn't get an infection again. Turned therapy back on about 1 week ago and says it's been helping with symptoms. Voids spontaneously 3x/d, CIC 3-5x/d but mostly at night based on symptoms of needing to void with residuals 0cc, urgency, fecal urgency has gotten better. Nocturia 3x/n , Drink fluid up to going to bed, several beers 4-5x every other day, milk, root beer Current program: program 6 (-1,-2,+3) mA 5.8, 6.1mA felt left butt cheek Battery: OK Impedance: good HISTORIES: PAST MEDICAL HISTORY PAST MEDICAL HISTORY Diagnosis Date Diabetes (HCC) Hypertension Sleep apnea PAST SURGICAL HISTORY PAST SURGICAL HISTORY Procedure Laterality Date PAST SURGICAL HISTORY OF kidney stone PAST SURGICAL HISTORY OF colon surgery due to peritonitis PAST SURGICAL HISTORY OF back x 4 PAST SURGICAL HISTORY OF left TKA FAMILY HISTORY FAMILY HISTORY Problem Relation Age of Onset Kidney Disease Mother Heart disease Father Heart disease Brother SOCIAL HISTORY Social History Tobacco Use Smoking status: Never Smokeless tobacco: Never Vaping Use Vaping status: Never Used Substance Use Topics Alcohol use: Yes Comment: 2x/week Drug use: Not Currently MEDICATIONS: Current Outpatient Medications Medication Sig lisinopril (ZESTRIL) 10 mg tablet Take 10 mg by mouth once daily. GABAPENTIN, BULK, MISC [address] (PROTONIX) 40 mg tablet Take 40 mg by mouth two times a day. trospium (SANCTURA) 20 mg tablet Take 20 mg by mouth daily at bedtime. multivitamin tablet Take 1 tablet by mouth once daily. CPAP/BIPAP/OTHER autopap [id number] [facility] Contact At Once! tiffin allopurinol (ZYLOPRIM) 300 mg tablet Take 300 mg by mouth. atorvastatin (LIPITOR) 20 mg tablet Take 20 mg by mouth. metFORMIN (GLUCOPHAGE) 1,000 mg tablet Take 1,000 mg by mouth once daily. SITagliptin (JANUVIA) 100 mg tablet Take 100 mg by mouth once daily. levothyroxine (SYNTHROID) 88 mcg tablet Take 88 mcg by mouth once daily. buPROPion XL (WELLBUTRIN XL) 150 mg 24 hr tablet Take 150 mg by mouth. venlafaxine ER (EFFEXOR XR) 75 mg 24 hr capsule Take 75 mg by mouth once daily. No current facility-administered medications for this visit. CURRENT ALLERGIES: Allergies As of Date: 07/20/2024 Allergen Noted Reaction AMOXACILLIN [AMOXICILLIN] 04/13/2016 Unknown AUGMENTIN [AMOXICILLIN-POT CLAVUL*04/13/2016 Other: See Comments Fully Assessed 06/08/2024 PHYSICAL EXAM: General: No acute distress, well appearing Back: incision well appearing. No erythema, discharge, or tenderness. Area of possible seroma but no pain or tenderness IMPRESSION: ASSESSMENT/PLAN: 1. Urinary urgency - ICD9: 788.63, ICD10: R39.15 (primary diagnosis) Reviewed his symptoms. He is doing well daytime but has mostly nighttime symptoms. Most likely 2/2 high alcohol and water intake at night. Discussed behavioral modifications. Maintain interstim at this time as it seems to be working. 2. Neurogenic bladder - ICD9: 596.5 (more content not included)... Normal [facility] Urology Office/Clinic Noteon 06-22-2024 Urology Office/Clinic Note Urology Office/Clinic Note Chief Complaint Follow up from SNM implant done in February HPI Staff Pt here for f/u after SNM implant at [facility], pt preferred to follow with a local urologist instead. Appt with Dr. Gerard--Tori 09/21/23 - Referred to colleague to discuss interstim. SNM implant got infected 3 weeks ago. Has been turned off. Wasn't able to see someone at [facility]. Did a virtual and was prescribed doxycycline. Had really bad pain, but because of antibiotic pain is doing better. Swelling in area of surgery now. CIC 3-4 x a day. Tries to void as much as he can without the cath, but if it builds up he will self cath. Dysuria: denies Incomplete bladder emptying: yes Hematuria: denies Frequency: less than half the time Urgency: yes Nocturia: 4 x a night self cath Stream: straining about half the time, has a steady to weak stream and has intermittency about half the time Leaking: sometimes Post void dripping: denies Wearing pads/ Depends: depends daily Urge incontinence: yes, but just leaking Stress incontinence: denies Incontinence without Sensory Awareness: denies Abdominal pain: denies Flank pain: denies Sexual complaints: _ History of Present Illness Tests reviewed: reviewed operative report from external records I have reviewed the previous health record information and history for this patient from external providers and Dr. Ortiz. I have reviewed and verified the staff HPI to be accurate for this encounter. Review of Systems PHQ Score Initial Depression Screen Score: 2 SCORE ROS - Provider Constitutional: denies weight loss, denies hot flashes. Eyes: denies eye problems. Gastrointestinal: denies nausea, denies vomiting. Cardiovascular: denies chest pain or angina. Integumentary: no dryness Musculoskeletal: denies musculoskeletal symptoms. ENMT: denies otolaryngeal symptoms. Respiratory: no shortness of breath. Heme/Lymph: denies easy bleeding tendency, denies easy bruising tendency. Psychiatric: no confusion, no anxiety. Genitourinary: See HPI. Physical Exam Vitals & Measurements T: 36.5 ???C(Temporal Artery) HR: 82(Peripheral) RR: 16 BP: 138/72 HT: 69 in HT: 175 cm WT: 86.9 kg WT: 191.18 lb BMI: 28.38 General Appearance: alert, no distress, well nourished, well developed male. 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 during my leave 1. Neurogenic bladder (N31.9: Neuromuscular dysfunction of bladder, unspecified) PVR (cc): 12/10/23 - 52 *random scan 05/26/23 - 48 08/03/23 - *random scan 12/2021 - L URS, cysto - nonobstructing prostate Pt began CIC 07/05/22 after removal of chronic mcgrath since 09/2021 secondary to spinal abscess and lower ext paralysis. Has recovered substantially. Hx of small bladder capacity, getting 120-240 cc at a time with CIC q4h. S/p Staged SNM/Interstim X implantation 03/01/[address] Newman at [facility] due to my leave. stage 1 trial was 3 wks. SNM implant got infected post stage 2. Took doxycycline x1wk which improved pain. Now reports swelling in area of implant, similar to start of infection. -Discussed mgmt options. Will try a longer course of abx. IPSS 22 (20). No longer taking Trospium 20mg qhs. CIC 3-4x/night and 3x/day. SNM is currently off - worked well when it was on, turned it off due to pain/infection. States he has an appt 07/24/[address] Newman. -Recommended contacting Interstim rep to discuss turning back on device once his pain has resolved. -Take Bactrim DS bid x10 days. Advised pt to avoid taking Lisinopril while taking this. -Cont following with [facility] for Interstim management. F/u after 07/24/[address] Newman, be sure to address swelling if still present despite abx course 2. Bacteriuria (R82.71: Bacteriuria) Pt knows he will always be colonized since he does CIC and will not tx UTI unless symptomatic. [1] Follow-up With When Contact Information Angel CALDERON, Dina James, URL, [facility] [address] [place] [address]- [phone] Additional Instructions: f/u after seeing [facility] urology in July Patient Education Neurogenic Bladder Gillian, Sasha Menard, personally scribed for Dr. Ortiz on 06/22/2024 11:03:07. . Documentation recorded by the scribe, Sasha Menard, accurately reflects the services(s) I performed and decisions made by me. Authenticated by Dr. Ortiz on 06/22/2024 16:27:04. Problem List/Past Medical History Ongoing Bacteriuria Bloating Cirrhosis of liver Colon polyp Diabetes mellitus, type 2 Elevated AST (SGOT) Excessive gas Gastroesophageal reflux disease Generalized anxiety disorder Gout Hearing loss History of kid (more content not included)... Normal [facility] Comment on above: Result Comment: Elec tronically Signed By: Dina Ortiz MD\.br\Date and Time Signed: 06/22/24 16:27 EST\.br\Electronically Co-Signed By: Sasha Menard\.br\Date and Time Co-Signed: 06/22/24 11:04 EST CNPNon 06-11-2024 ORIANAN Telephone (UROLAV) -- SARMAD ALMEIDA ([id number]) 1950 M Date Time Provider Department 06/11/24 RADHA VO UROZOIE During your visit today, we recorded the following information about you: Radha Vo APRN.CNP 06/11/2024 8:05 AM Signed Telephone follow up Today Started feeling better with antibiotics Did have pain for 2 days Yesterday did not have pain, today no pain Has not turned therapy back on yet Will complete abx as prescribed Update on mychart when therapy back on regarding if pain returns Will update Dr. Newman CC: Scheduling for new appointment as cannot make Tuesday's virtual No other questions/concerns VERNELL Gamboa Nicole M 06/11/2024 10:20 AM Signed Patient is rescheduled. Thanks Allergies As of Date: 06/11/2024 Noted Allergy Reaction AMOXACILLIN (AMOXICILLIN) 04/13/2016 16 - Unknown AUGMENTIN (AMOXICILLIN-POT CLAVUL*04/13/2016 14 - Other: See Comments Comments: Nausea Date Reviewed: 06/08/2024 Reviewed by: Radha Vo APRN.ADDRESSOGRAPH OPERATOR - Fully Assessed Reason for Visit: Patient Question [6773] Prescriptions as of 06/11/2024 - doxycycline hyclate (VIBRAMYCIN) 100 mg capsule Take 1 capsule (100 mg) by mouth two times a day for 5 days. - lisinopril (ZESTRIL) 10 mg tablet Take 10 mg by mouth once daily. - GABAPENTIN, BULK, MISC 300 mg BID - pantoprazole DR (PROTONIX) 40 mg tablet Take 40 mg by mouth two times a day. - trospium (SANCTURA) 20 mg tablet Take 20 mg by mouth daily at bedtime. - multivitamin tablet Take 1 tablet by mouth once daily. - CPAP/BIPAP/OTHER autopap [id number] [facility] Contact At Once! tiffin - allopurinol (ZYLOPRIM) 300 mg tablet Take 300 mg by mouth. - atorvastatin (LIPITOR) 20 mg tablet Take 20 mg by mouth. - metFORMIN (GLUCOPHAGE) 1,000 mg tablet Take 1,000 mg by mouth once daily. - SITagliptin (JANUVIA) 100 mg tablet Take 100 mg by mouth once daily. - levothyroxine (SYNTHROID) 88 mcg tablet Take 88 mcg by mouth once daily. - buPROPion XL (WELLBUTRIN XL) 150 mg 24 hr tablet Take 150 mg by mouth. - venlafaxine ER (EFFEXOR XR) 75 mg 24 hr capsule Take 75 mg by mouth once daily. Meds Comments as of 01/23/2024: Pt poor historian with meds, initially stated meds were correct, [facility] had list that was somewhat different than [facility] meds, all updated per [facility]'s med list Problem List As Of Date 06/11/2024 Noted Resolved ADD (attention deficit hyperactivity disorder, *12/07/2016 Snoring [R06.83] 12/30/2020 Excessive daytime sleepiness [G47.19] 12/30/2020 Retention of urine [R33.9] 11/11/2023 HTN (hypertension) [I10] 01/23/2024 HLD (hyperlipidemia) [E78.5] 01/23/2024 Acquired hypothyroidism [E03.9] 01/23/2024 Depression [F32.A] 01/23/2024 ELLEN on CPAP [G47.33] 01/23/2024 Anemia [D64.9] 08/02/2021 GERD (gastroesophageal reflux disease) [K21.9] 09/25/2021 Gout [M10.9] 02/21/2024 Type 2 diabetes mellitus without complication (*03/24/2011 Gait difficulty [R26.9] 02/21/2024 Encounter Status:Closed by RADHA VO on 06/11/[address] [facility] 06-07-2024 CNPN Telephone (GLQ) -- SARMAD ALMEIDA ([id number]) 1950 Date Time Provider Department 06/07/24 ALEX NEWMAN GLQ During your visit today, we recorded the following information about you: Max Orly FRAZIER 06/07/2024 9:50 AM Signed Patient had interstim done in February and he states that he is having terrible pain around the site. He said it isn't red but the pain is debilitating and he wants to discuss with a nurse. Please call Thanks Sarita Gold RN 06/07/2024 10:07 AM Signed Spoke to pt regarding message below. Lives 2 hours away. Denies injury to implant site. Denies redness, fever, swelling. Advised to turn device off for now and reassess pain. VV made with Radha Vo tomorrow. Can have someone available to hold phone for visual assessment of implant site. Sarita Gold RN Allergies As of Date: 06/07/2024 Noted Allergy Reaction AMOXACILLIN (AMOXICILLIN) 04/13/2016 16 - Unknown AUGMENTIN (AMOXICILLIN-POT CLAVUL*04/13/2016 14 - Other: See Comments Comments: Nausea Date Reviewed: 04/24/2024 Reviewed by: Kimi Mckenna OCCA - Fully Assessed Reason for Visit: Patient Question [8357] Prescriptions as of 06/07/2024 - lisinopril (ZESTRIL) 10 mg tablet Take 10 mg by mouth once daily. - GABAPENTIN, BULK, MISC 300 mg BID - pantoprazole DR (PROTONIX) 40 mg tablet Take 40 mg by mouth two times a day. - trospium (SANCTURA) 20 mg tablet Take 20 mg by mouth daily at bedtime. - multivitamin tablet Take 1 tablet by mouth once daily. - CPAP/BIPAP/OTHER autopap [id number] [facility] Contact At Once! tiffin - allopurinol (ZYLOPRIM) 300 mg tablet Take 300 mg by mouth. - atorvastatin (LIPITOR) 20 mg tablet Take 20 mg by mouth. - metFORMIN (GLUCOPHAGE) 1,000 mg tablet Take 1,000 mg by mouth once daily. - SITagliptin (JANUVIA) 100 mg tablet Take 100 mg by mouth once daily. - levothyroxine (SYNTHROID) 88 mcg tablet Take 88 mcg by mouth once daily. - buPROPion XL (WELLBUTRIN XL) 150 mg 24 hr tablet Take 150 mg by mouth. - venlafaxine ER (EFFEXOR XR) 75 mg 24 hr capsule Take 75 mg by mouth once daily. Meds Comments as of 01/23/2024: Pt poor historian with meds, initially stated meds were correct, [facility] had list that was somewhat different than [facility] meds, all updated per [facility] med list Problem List As Of Date 06/07/2024 Noted Resolved ADD (attention deficit hyperactivity disorder, *12/07/2016 Snoring [R06.83] 12/30/2020 Excessive daytime sleepiness [G47.19] 12/30/2020 Retention of urine [R33.9] 11/11/2023 HTN (hypertension) [I10] 01/23/2024 HLD (hyperlipidemia) [E78.5] 01/23/2024 Acquired hypothyroidism [E03.9] 01/23/2024 Depression [F32.A] 01/23/2024 ELLEN on CPAP [G47.33] 01/23/2024 Anemia [D64.9] 08/02/2021 GERD (gastroesophageal reflux disease) [K21.9] 09/25/2021 Gout [M10.9] 02/21/2024 Type 2 diabetes mellitus without complication (*03/24/2011 Gait difficulty [R26.9] 02/21/2024 Encounter Status:Closed by SARTIA GOLD on 06/07/24 Normal [facility] liveron 05-02-2024 liver [facility] [place] [address] Ultrasound Report Signed Patient: Sarmad Almeida MR#: [id number] : 1950 Acct:[id number] Age/Sex: 73 / M ADM Date: 05/02/24 Loc: Room: Type: [facility] Attending Dr: Yobany Ellison MD Ordering Provider: Yobany Ellison MD Date of Service: 05/02/24 US/US liver: R93.2 - Abnormal findings on diagnostic imaging of liver ... Copies to: Yobany Ellison MD LIMITED ABDOMINAL ULTRASOUND: CLINICAL HISTORY: Former EtOH use. COMPARISON: None TECHNIQUE: Grayscale and color Doppler images of the right upper quadrant organs were obtained. FINDINGS: Pancreas: Visualized portions appear unremarkable. Liver: Fatty infiltration. Gallbladder: Unremarkable. CBD: 3.5 mm. US/US liver IMPRESSION: FATTY INFILTRATION OF THE LIVER. NO ACUTE PROCESS.. Impression dictated by: Logan Aly Jr., D.OAdan05/02/2024 3:14 PM Dictation Location: [place] [address] Tech: Luann Malik Transcribed By: SALVADOR 05/02/241513 Dictated By: Logan Aly Jr, DO 05/02/24 151 Signed By: 05/02/24 151 Normal [facility] CNOVon 04-24-2024 CNOV Office Visit (UROLMN ) -- SARMAD ALMEIDA ([id number]) 1950 M Date Time Provider Department 04/24/24 9:00 AM SALLY DENNIS During your visit today, we recorded the following information about you: Sally Dennis PA-C 04/24/2024 10:01 AM Addendum [facility]IC[facility] RECONSTRUCTIVE SURGERY HISTORY OF PRESENT ILLNESS: Sarmad Almeida is a 73 year old male s/p Staged SNM / Interstim insertion with Dr. Newman in February, here today for a follow up regarding post op device check. Performing CIC 4-5x Voiding volitionally more often But still needing to rely on catheters about as much as pre op Has not received any education on working the device and is frustrated by this Has been on Program 5 since implant Also feeling more urgency with bowels INTERROGATION: 1) -0, +3 2) -1, +3 3) -2, +0 4) -3, +0 5) -0, -1, +3 - INITIAL PROGRAM at 2.3 6) -1, -2, +3 - MOVED TO at 5.8 felt lower buttcheek 7) -2, -3, +0 Battery: OK Impedance: <4k in all leads GENERAL REVIEW OF SYSTEMS: GI:SEE HPI GENITOURINARY:SEE HPI HISTORIES: Present Medications: lisinopril (ZESTRIL) 10 mg tablet Take 10 mg by mouth once daily. GABAPENTIN, BULK, MISC [address] (PROTONIX) 40 mg tablet Take 40 mg by mouth two times a day. trospium (SANCTURA) 20 mg tablet Take 20 mg by mouth daily at bedtime. multivitamin tablet Take 1 tablet by mouth once daily. CPAP/BIPAP/OTHER autopap [id number] [facility] Contact At Once! tiffin allopurinol (ZYLOPRIM) 300 mg tablet Take 300 mg by mouth. atorvastatin (LIPITOR) 20 mg tablet Take 20 mg by mouth. metFORMIN (GLUCOPHAGE) 1,000 mg tablet Take 1,000 mg by mouth once daily. SITagliptin (JANUVIA) 100 mg tablet Take 100 mg by mouth once daily. levothyroxine (SYNTHROID) 88 mcg tablet Take 88 mcg by mouth once daily. buPROPion XL (WELLBUTRIN XL) 150 mg 24 hr tablet Take 150 mg by mouth. venlafaxine ER (EFFEXOR XR) 75 mg 24 hr capsule Take 75 mg by mouth once daily. No current facility-administered medications for this visit. Past Family History: FAMILY HISTORY Problem Relation Age of Onset Kidney Disease Mother Heart disease Father Heart disease Brother Past Medical History: PAST MEDICAL HISTORY No date: Diabetes (HCC) No date: Hypertension No date: Sleep apnea Past Surgical History: PAST SURGICAL HISTORY No date: PAST SURGICAL HISTORY OF Comment: kidney stone No date: PAST SURGICAL HISTORY OF Comment: colon surgery due to peritonitis No date: PAST SURGICAL HISTORY OF Comment: back x 4 No date: PAST SURGICAL HISTORY OF Comment: left TKA Past Social History: Social History Tobacco Use Smoking status: Never Smokeless tobacco: Never Vaping Use Vaping status: Never Used Substance Use Topics Alcohol use: Yes Comment: 2x/week Drug use: Not Currently PHYSICAL EXAM: GENERAL: Well appearing, alert, in no acute distress RESP: NL effort, no retractions or purse-lip breathing ABDOMEN: soft; nontender; no gaurding NEURO/PSYCH: No signs of depression, anxiety, or agitation, gait normal, AANDOx3 BACK: IPG incision healed on R upper glute; no signs of infection; no tenderness to palpation Superficial IPG but not bothering pt at this time ASSESSMENT/PLAN: 1. Incomplete emptying of bladder - ICD9: 788.21, ICD10: R33.9 (primary diagnosis) 2. Urinary urgency - ICD9: 788.63, ICD10: R39.15 3. Fecal urgency - ICD9: 787.63, ICD10: R15.2 S/p Staged SNM / InterStim insertion with Dr. Newman February 2024 Complex programming and education today with pt and Pt expressed understanding See me in 3 mo; bring everything charged LANEY Long, Sally Henderson PA-C 04/24/2024 9:26 AM Addendum You were on Program 5 We changed you to Program 6 (at 5.8) Try this for 2 weeks and monitor how many times you catheterize and your output from cath You have Progams 1, 2, 3, 4, and 7 to still try Goal is to find program that works best for you (bladder and bowels) Allergies As of Date: 04/24/2024 Noted Allergy Reaction AMOXACILLIN (AMOXICILLIN) 04/13/2016 16 - Unknown AUGMENTIN (AMOXICILLIN-POT CLAVUL*04/13/2016 14 - Other: See Comments Comments: Nausea Date Reviewed: 04/24/2024 Reviewed by: Kimi Mckenna OCCA - Fully Assessed Reason for Visit: Post-Op Visit [1236] Primary Visit Diagnosis:Incomplete emptying of bladder [R33.9] Other Visit Diagnoses:Urinary urgency [R39.15] Fecal urgency [R15.2] Prescriptions as of 04/24/2024 - lisinopril (ZESTRIL) 10 mg tablet Take 10 mg by mouth once daily. - GABAPENTIN, BULK, MISC 300 mg BID - pantoprazole DR (PROTONIX) 40 mg tablet Take 40 mg by mouth two times a day. - trospium (SANCTURA) 20 mg tablet Take 20 mg by mouth daily at bedtime. - multivitamin tablet Take 1 t (more content not included)... Normal [facility] AFP Tumor Marker, Serumon AFP Tumor Marker, Serum 2.7 ng/mL Normal 0.0-8.4 [facility] Comment on above: Result Comment: [employer] Electrochemiluminescence Immunoassay (ECLIA) Values obtained with different assay methods or kits cannot be used interchangeably. Results cannot be interpreted as absolute evidence of the presence or absence of malignant disease. This test is not interpretable in females. Performed at: [facility] [address] [id number] [employer] Blower Feeder: Cale Ayers PhD, Phone: [phone] PERFORMED BY: [place] [address] PATHOLOGIST RN OR LVN MARIA ANTONIA BAHENA M.D. Performed By: #### H BSAB, HCV RX PCR, HBCAB, HBSAG, AFPTM, HAABT #### [facility] , #### CBC, PT, BMP #### [address] Automated basophil %Ordered By: Yobany Asajames on 04-19-2024 Basophils/100 WBC (Bld) 0.4 % Normal . [facility] Comment on above: Performed By: #### H BSAB, HCV RX PCR, HBCAB, HBSAG, AFPTM, HAABT #### [facility] , #### CBC, PT, BMP #### [address] Automated basophil countOrde red By: Imad Asaad on 04-19-2024 Basophils (Bld) [#/Vol] 0.0 10*3/uL Normal 0.0-0.2 [facility] Comment on above: Result Comment: PERF ORMED BY: [place] [address] PATHOLOGIST RN OR LVN MARIA ANTONIA BAHENA M.D. Performed By: #### H BSAB, HCV RX PCR, HBCAB, HBSAG, AFPTM, HAABT #### [facility] , #### CBC, PT, BMP #### [address] Automated blood monocyte cou ntOrdered By: Imad Asaad on 04-19-2024 Monocytes (Bld) [#/Vol] 0.5 10*3/uL Normal 0.0-0.8 [facility] Comment on above: Performed By: #### H BSAB, HCV RX PCR, HBCAB, HBSAG, AFPTM, HAABT #### [facility] , #### CBC, PT, BMP #### [address] Automated eosinophil %Ordere d By: Imad Asaad on 04-19-2024 Eosinophils/100 WBC (Bld) 3.5 % Normal . [facility] Comment on above: Performed By: #### H BSAB, HCV RX PCR, HBCAB, HBSAG, AFPTM, HAABT #### [facility] , #### CBC, PT, BMP #### [address] Automated eosinophil countOr dered By: Imad Asaad on 04-19-2024 Eosinophils (Bld) [#/Vol] 0.2 10*3/uL Normal 0.0-0.45 [facility] Comment on above: Performed By: #### H BSAB, HCV RX PCR, HBCAB, HBSAG, AFPTM, HAABT #### [facility] , #### CBC, PT, BMP #### [facility] [address] [place] [address] Automated monocyte %Ordered By: Imad Asaad on 04-19-2024 Monocytes/100 WBC (Bld) 8.5 % Normal . [facility] Comment on above: Performed By: #### H BSAB, HCV RX PCR, HBCAB, HBSAG, AFPTM, HAABT #### [facility] , #### CBC, PT, BMP #### [facility] [address] [place] [address] Automated neutrophil %Ordere d By: Imad Asaad on 04-19-2024 Neutrophils/100 WBC (Bld) 65.4 % Normal . [facility] Comment on above: Performed By: #### H BSAB, HCV RX PCR, HBCAB, HBSAG, AFPTM, HAABT #### [facility] , #### CBC, PT, BMP #### [address] Basic Metabolic Panelon 0 GFR/1.73 sq M.predicted MDRD (S/P/Bld) [Vol rate/Area] mL/min/{1.73_m2} Normal [facility] Comment on above: Performed By: #### H BSAB, HCV RX PCR, HBCAB, HBSAG, AFPTM, HAABT #### [facility] , #### CBC, PT, BMP #### [facility] [address] [place] [address] Calcium [Mass/volume] in Ser um or PlasmaOrdered By: Imad Asaad on 04-19-2024 Calcium [Mass/Vol] 9.7 mg/dL Normal 8.6-10.3 [facility] Comment on above: Result Comment: PERF ORMED BY: [place] [address] PATHOLOGIST RN OR LVN MARIA ANTONIA BAHENA M.D. Performed By: #### H BSAB, HCV RX PCR, HBCAB, HBSAG, AFPTM, HAABT #### [facility] , #### CBC, PT, BMP #### [address] Carbon dioxide, total [Moles /volume] in Serum or PlasmaOrdered By: Imjames Asajames on 04-19-2024 CO2 [Moles/Vol] 28.4 mmol/L Normal 21.0-31.0 [facility] Comment on above: Performed By: #### H BSAB, HCV RX PCR, HBCAB, HBSAG, AFPTM, HAABT #### [facility] , #### CBC, PT, BMP #### [address] Chloride [Moles/volume] in S emily or PlasmaOrdered By: Imad Asaad on 04-19-2024 Chloride [Moles/Vol] 103 mmol/L Normal 98-107 [facility] Comment on above: Performed By: #### H BSAB, HCV RX PCR, HBCAB, HBSAG, AFPTM, HAABT #### [facility] , #### CBC, PT, BMP #### [address] Complete Blood Count Auto Di ffon 04-19-2024 Mean Corpuscular HGB Conc 33.0 g/dL Normal 32.5-35.6 [facility] Comment on above: Performed By: #### H BSAB, HCV RX PCR, HBCAB, HBSAG, AFPTM, HAABT #### [facility] , #### CBC, PT, BMP #### [facility] [address] [place] [address] [place] NRBC% 0.1 /100{WBC} Normal 0-0.5 [facility] Comment on above: Performed By: #### H BSAB, HCV RX PCR, HBCAB, HBSAG, AFPTM, HAABT #### [facility] , #### CBC, PT, BMP #### [facility] [address] [place] [address] [place] Creatinine [Mass/volume] in Serum or PlasmaOrdered By: Imad Asaad on 04-19-2024 Creatinine [Mass/Vol] 1.01 mg/dL Normal 0.70-1.30 [facility] Comment on above: Performed By: #### H BSAB, HCV RX PCR, HBCAB, HBSAG, AFPTM, HAABT #### [facility] , #### CBC, PT, BMP #### [address] Erythrocyte distribution wid th [Ratio] by Automated countOrdered By: Imad Ryleyad on 04-19-2024 Erythrocyte distribution width (RBC) [Ratio] 15.0 % High 12.0-14.8 [facility] Comment on above: Performed By: #### H BSAB, HCV RX PCR, HBCAB, HBSAG, AFPTM, HAABT #### [facility] , #### CBC, PT, BMP #### [place] [address] [place] Erythrocytes [#/volume] in B lood by Automated countOrdered By: Imad Ryleyad on 04-19-2024 RBC (Bld) [#/Vol] 3.96 10*6/uL Normal 3.90-5.60 [facility] Comment on above: Performed By: #### H BSAB, HCV RX PCR, HBCAB, HBSAG, AFPTM, HAABT #### [facility] , #### CBC, PT, BMP #### [address] Glucose [Mass/volume] in Ser um or PlasmaOrdered By: Imad Asaad on 04-19-2024 Glucose [Mass/Vol] 90 mg/dL Normal 70-100 [facility] Comment on above: ADA recommended refe rence rangeRandom Glucose Reference Range is dependent on time and content of last meal. Glucose of more than 200 mg/dL in a nonstressed, ambulatory subject supports the diagnosis of Diabetes Mellitus. Result Comment: [place] om Glucose Reference Range is dependent on time and content of last meal. Glucose of more than 200 mg/dL in a nonstressed, ambulatory subject supports the diagnosis of Diabetes Mellitus. ADA recommended reference range Performed By: #### H BSAB, HCV RX PCR, HBCAB, HBSAG, AFPTM, HAABT #### [facility] , #### CBC, PT, BMP #### [facility] [address] [place] [address] Hematocrit [Volume Fraction] of Blood by Automated countOrdered By: Yobany Ellison on 04-19-2024 Hematocrit (Bld) [Volume fraction] 38.9 % Normal 38.8-50.0 [facility] Comment on above: Performed By: #### H BSAB, HCV RX PCR, HBCAB, HBSAG, AFPTM, HAABT #### [facility] , #### CBC, PT, BMP #### [facility] [address] [place] [address] Hemoglobin [Mass/volume] in BloodOrdered By: Yobany Ellison on 04-19-2024 Hemoglobin (Bld) [Mass/Vol] 12.8 g/dL Low 13.0-17.0 [facility] Comment on above: Performed By: #### H BSAB, HCV RX PCR, HBCAB, HBSAG, AFPTM, HAABT #### [facility] , #### CBC, PT, BMP #### [facility] [address] [place] [address] Hep C Ab wRfx to Qnt PCRon 0 04-19-2024 Hepatitis C Virus Antibody Non-Reactive Normal Non Reactive [facility] Comment on above: Performed By: #### H BSAB, HCV RX PCR, HBCAB, HBSAG, AFPTM, HAABT #### [facility] , #### CBC, PT, BMP #### [facility] [address] Interpretation Hepatitis C Comment Normal . [facility] [facility] Comment on above: Result Comment: Not infected with HCV unless early or acute infection is suspected (which may be delayed in an immunocompromised individual), or other evidence exists to indicate HCV infection. Performed By: #### H BSAB, HCV RX PCR, HBCAB, HBSAG, AFPTM, HAABT #### [facility] , #### CBC, PT, BMP #### [facility] [address] Hepatitis A Antibody Totalon 04-19-2024 Hepatitis A Antibody Total Negative Normal Negative [facility] Comment on above: Result Comment: Comm ent: The HAV total antibody assay detects both IgG and IgM but does not differentiate between them. A negative result suggests susceptibility to infection. A positive result could be due to vaccination, previously resolved infection or active infection. Testing for HAV IgM should be performed if active HAV infection is suspected. [facility] offers profiles that will automatically reflex positive HAV total antibody results to IgM (e.g., panel #[id number] HAV Antibody w/ Rfx). Performed at: [address] [id number] [employer] Feeder: Cale Ayers PhD, Phone: [phone] Performed By: #### H BSAB, HCV RX PCR, HBCAB, HBSAG, AFPTM, HAABT #### [facility] , #### CBC, PT, BMP #### [address] Hepatitis A virus Ab [Presen ce] in Serum by ImmunoassayOrdered By: Yobany Ellison on 04-19-2024 HAV Ab IA Ql (S) Negative Negative [facility] Comment on above: Comment: The HAV tot al antibody assay detects both IgG andIgM but does not differentiate between them. A negativeresult suggests susceptibility to infection. A positiveresult could be due to vaccination, previously resolvedinfection or active infection. Testing for HAV IgM shouldbe performed if active HAV infection is suspected. [facility] will [facility] reflex positive HAVtotal antibody results to IgM (e.g., panel #[id number] HAVAntibody w/ Rfx).Performed at: [facility] [address] [id number] Director: Cale Ayers PhD, Phone: [phone] Hepatitis B Core Antibodyon 04-19-2024 Hepatitis B Core Antibody Negative Normal Negative [facility] Comment on above: Performed By: #### H BSAB, HCV RX PCR, HBCAB, HBSAG, AFPTM, HAABT #### [facility] , #### CBC, PT, BMP #### [address] Hepatitis B Surface Antibody on 04-19-2024 Hepatitis B Surface Antibody Non-Reactive Normal . [facility] Comment on above: Result Comment: Non Reactive: Not immune to HBV infection. Equivocal: Unable to determine if anti-HBs is present at levels consistent with immunity. Reactive: Anti-HBs concentration detected at greater than 10 mIU/mL. Individual is considered to be immune to infection with HBV. Performed By: #### H BSAB, HCV RX PCR, HBCAB, HBSAG, AFPTM, HAABT #### [facility] , #### CBC, PT, BMP #### [address] Hepatitis B Surface Antigeno n 04-19-2024 HBsAg Screen Negative Normal Negative [facility] Comment on above: Result Comment: PERF ORMED BY: [place] [address] PATHOLOGIST RN OR LVN MARIA ANTONIA BAHENA M.D. Performed By: #### H BSAB, HCV RX PCR, HBCAB, HBSAG, AFPTM, HAABT #### [facility] , #### CBC, PT, BMP #### [address] Hepatitis B virus surface Ab [Presence] in SerumOrdered By: Yobany Ellison on 04-19-2024 HBV surface Ab Ql (S) Non-Reactive . [facility] Comment on above: Non Reactive: Not im mune to HBV infection. Equivocal: Unable to determine if anti-HBs is present at levels consistent with immunity. Reactive: Anti-HBs concentration detected at greater than 10 mIU/mL. Individual is considered to be immune to infection with HBV. Hepatitis B virus surface Ag [Presence] in Serum or Plasma by ImmunoassayOrdered By: Imad Asaad on 04-19-2024 HBV surface Ag IA Ql Negative Negative [facility] Hepatitis C virus IgG Ab [Pr esence] in Serum or Plasma by ImmunoassayOrdered By: Imad Asaad on 04-19-2024 HCV IgG IA Ql Non-Reactive Non Reactive [facility] INR in Platelet poor plasma by Coagulation assayOrdered By: Imad [facility] on 04-19-2024 INR Coag (PPP) [Relative time] 1.2 {INR} Normal [facility] Comment on above: INR Therapeutic Rang e A) Pre- and Peroperative OAT started two weeks before surgery. NOT HIP SURGERY: 1.5 - 2.5 HIP SURGERY: 2 - 3B) Primary and secondary prevention of venous THROMBOSIS: 2 - 3C) Active venous thrombosis, pulmonary embolismand prevention of recurrent venous thrombosis: 2 - 3D) Prevention of arterial thromboembolismincluding patients with mechanical heart valves: 3 - 4.5 Result Comment: INR Therapeutic Range A) Pre- and Peroperative OAT started two weeks before surgery. NOT HIP SURGERY: 1.5 - 2.5 HIP SURGERY: 2 - 3 B) Primary and secondary prevention of venous THROMBOSIS: 2 - 3 C) Active venous thrombosis, pulmonary embolism and prevention of recurrent venous thrombosis: 2 - 3 D) Prevention of arterial thromboembolism including patients with mechanical heart valves: 3 - 4.5 PERFORMED BY: [place] [address] PATHOLOGIST RN OR LVN MARIA ANTONIA BAHENA M.D. Performed By: #### H BSAB, HCV RX PCR, HBCAB, HBSAG, AFPTM, HAABT #### [facility] , #### CBC, PT, BMP #### [place] [address] [place] Leukocytes [#/volume] correc alex for nucleated erythrocytes in Blood by Automated counOrdered By: Imad Asaad on 04-19-2024 WBC corrected for nucl RBC Auto (Bld) [#/Vol] 6.1 10*3/uL 4.1-10.5 [facility] Leukocytes [#/volume] in Blo od by Automated countOrdered By: Imad Asaad on 04-19-2024 WBC (Bld) [#/Vol] 6.1 10*3/uL Normal 4.1-10.5 [facility] Comment on above: Performed By: #### H BSAB, HCV RX PCR, HBCAB, HBSAG, AFPTM, HAABT #### [facility] , #### CBC, PT, BMP #### [facility] [address] [place] [address] [place] Lymphocytes [#/volume] in Bl ood by Automated countOrdered By: Imad Asaad on 04-19-2024 Lymphocytes (Bld) [#/Vol] 1.4 10*3/uL Normal 1.00-4.8 [facility] Comment on above: Performed By: #### H BSAB, HCV RX PCR, HBCAB, HBSAG, AFPTM, HAABT #### [facility] , #### CBC, PT, BMP #### [facility] [address] [place] [address] [place] Lymphocytes/100 leukocytes i n Blood by Automated countOrdered By: Imad Asaad on 04-19-2024 Lymphocytes/100 WBC (Bld) 22.2 % Normal . [facility] Comment on above: Performed By: #### H BSAB, HCV RX PCR, HBCAB, HBSAG, AFPTM, HAABT #### [facility] , #### CBC, PT, BMP #### [facility] [address] [place] [address] [place] MCH [Entitic mass] by Automa alex countOrdered By: Imad Asaad on 04-19-2024 MCH (RBC) [Entitic mass] 32.4 pg Normal 27.5-35.2 [facility] Comment on above: Performed By: #### H BSAB, HCV RX PCR, HBCAB, HBSAG, AFPTM, HAABT #### [facility] , #### CBC, PT, BMP #### [facility] [address] MCHC Auto (RBC) [Mass/Vol]Or dered By: Imad Asaad on 04-19-2024 MCHC (RBC) [Mass/Vol] 33.0 g/dL 32.5-35.6 [facility] MCV [Entitic volume] by Auto mated countOrdered By: Imad Asaad on 04-19-2024 MCV (RBC) [Entitic vol] 98.3 fL Normal 83.5-101 [facility] Comment on above: Performed By: #### H BSAB, HCV RX PCR, HBCAB, HBSAG, AFPTM, HAABT #### [facility] , #### CBC, PT, BMP #### [facility] [address] [place] [address] Neutrophils [#/volume] in Bl ood by Automated countOrdered By: Imad Asaad on 04-19-2024 Neutrophils (Bld) [#/Vol] 4.0 10*3/uL Normal 1.8-7.7 [facility] Comment on above: Performed By: #### H BSAB, HCV RX PCR, HBCAB, HBSAG, AFPTM, HAABT #### [facility] , #### CBC, PT, BMP #### [facility] [address] [place] [address] No Panel InformationOrdered By: Imad Asaad on 04-19-2024 Estimated GFR (CKD-EPI) > 60.0 mL/Min [facility] Hepatitis B Core Total Antibody Negative Negative [facility] Hepatitis C Interpretation Comment . [facility] Comment on above: Not infected with HC V unless early or acute infection issuspected (which may be delayed in an immunocompromisedindividual), or other evidence exists to indicate HCVinfection. Pharmacy Creatinine Clearance (Chem N/A [facility] Nucleated erythrocytes [Pres ence] in Blood by Automated countOrdered By: Imad Asaad on 04-19-2024 Nucleated RBC Auto Ql (Bld) 0.1 /100{WBC} 0-0.5 [facility] Platelet mean volume [Entiti c volume] in Blood by Automated countOrdered By: Imad Asaad on 04-19-2024 Platelet mean volume (Bld) [Entitic vol] 8.1 fL Normal 6.6-10.1 [facility] Comment on above: Performed By: #### H BSAB, HCV RX PCR, HBCAB, HBSAG, AFPTM, HAABT #### [facility] , #### CBC, PT, BMP #### [facility] [address] Platelets [#/volume] in Bloo d by Automated countOrdered By: Imad Ryleyad on 04-19-2024 Platelets (Bld) [#/Vol] 232 10*3/uL Normal 150-450 [facility] Comment on above: Performed By: #### H BSAB, HCV RX PCR, HBCAB, HBSAG, AFPTM, HAABT #### [facility] , #### CBC, PT, BMP #### [facility] [address] [place] [address] Potassium [Moles/volume] in Serum or PlasmaOrdered By: Imad Asaad on 04-19-2024 Potassium [Moles/Vol] 3.7 mmol/L Normal 3.5-5.1 [facility] Comment on above: Performed By: #### H BSAB, HCV RX PCR, HBCAB, HBSAG, AFPTM, HAABT #### [facility] , #### CBC, PT, BMP #### [facility] [address] Prothrombin time (PT)Ordered By: Imad Asaad on 04-19-2024 PT Coag (PPP) [Time] 13.3 s High 9.0-12.9 [facility] Comment on above: A hematocrit value g reater than 55% may lead to inaccurate results in coagulation testing. Patients having hematocrit values >55% require a special collection tube for coagulation studies. Please contact the laboratory at [phone] for redraw instructions. Result Comment: A he matocrit value greater than 55% may lead to inaccurate results in coagulation testing. Patients having hematocrit values >55% require a special collection tube for coagulation studies. Please contact the laboratory at [phone] for redraw instructions. Performed By: #### H BSAB, HCV RX PCR, HBCAB, HBSAG, AFPTM, HAABT #### [facility] , #### CBC, PT, BMP #### [facility] [address] Serum or plasma [id number] protein tumor marker measurement (mass/volume)Ordered By: Yobany Ellison on 04-19-2024 AFP.tumor marker [Mass/Vol] 2.7 ng/mL 0.0-8.4 [facility] Comment on above: [employer] [employer] El ectrochemiluminescence Immunoassay(ECLIA)Values obtained with different assay methods or kits cannotbe used interchangeably. Results cannot be interpreted asabsolute evidence of the presence or absence of malignantdisease.This test is not interpretable in females.Performed at: [facility] [place] [id number] Director: Cale Ayers PhD, Phone: [phone] Serum or plasma anion gap de terminationOrdered By: Yobany Ellison on 04-19-2024 Anion gap [Moles/Vol] 13.3 mmol/L Normal 6.0-15.0 [facility] Comment on above: Performed By: #### H BSAB, HCV RX PCR, HBCAB, HBSAG, AFPTM, HAABT #### [facility] , #### CBC, PT, BMP #### [facility] [address] [place] [address] Sodium [Moles/volume] in Ser um or PlasmaOrdered By: james Ellison on 04-19-2024 Sodium [Moles/Vol] 141 mmol/L Normal 136-145 [facility] Comment on above: Performed By: #### H BSAB, HCV RX PCR, HBCAB, HBSAG, AFPTM, HAABT #### [facility] , #### CBC, PT, BMP #### [facility] [address] [place] [address] Urea nitrogen [Mass/volume] in Serum or PlasmaOrdered By: Yobany Ellison on 04-19-2024 Urea nitrogen [Mass/Vol] 22 mg/dL Normal 7-25 [facility] Comment on above: Performed By: #### H BSAB, HCV RX PCR, HBCAB, HBSAG, AFPTM, HAABT #### [facility] , #### CBC, PT, BMP #### [facility] [address] [place] [address] XR hand RT min 3V*on 024 XR hand RT min 3V* [facility] [place] [address] [place] [address] XRay Report Signed Patient: Sarmad Almeida MR#: [id number] : 1950 Acct:[id number] Age/Sex: 73 / M ADM Date: 04/19/24 Loc: [facility] Room: Type: [facility] Attending Dr: Rebekah Siddiqi APRN Copies to: Rebekah Siddiqi APRN Ordering Provider: Rebekah Siddiqi APRN Date of Service: 04/19/24 XR/XR hand RT min 3V*: M79.641 - Pain in right hand RIGHT HAND - 3 views REASON FOR EXAM: Fell in parking lotOnto right hand. Pain and bruising third fourth fifth metacarpals. COMPARISON: None. FINDINGS: Soft tissue swelling. Vascular calcifications. Boxer's fracture fifth metacarpal. Scattered degenerative changes particularly involving the MCP and IP joints without bony erosions. XR/XR hand RT min 3V* IMPRESSION: BOXER'S FRACTURE FIFTH METACARPAL. Impression dictated by: Logan Aly Jr. DAdanOAdan04/19/2024 1:57 PM Dictation Location: [place] [address] Transcribed By: SALVADOR 04/19/24 1357 Dictated By: Logan Aly Jr, 04/19/24 1355 Signed By: 04/19/24 1357 Normal [facility] Willie 03-27-2024 CNPN Telephone (GLQ) -- SARMAD ALMEIDA ([id number]) 1950 M Date Time Provider Department 03/27/24 ALEX NEWMAN GLQ During your visit today, we recorded the following information about you: Orly De Oliveira 03/27/2024 4:06 PM Signed ----- Message from Sally Dennis PA-C sent at 03/27/2024 2:53 PM EDT ----- Happy to see him tomorrow I have an open slot in AM (you can change it to virtual) or Monday 04/02 at 8am I have a slot open ----- Message ----- From: Orly De Oliveira Sent: 03/23/2024 3:33 PM EDT To: Sally Dennis PA-C This patient needs a post op - wanting to do it virtually with you. His surgery was 03/01 - can you help me and let me know where to put him for a video visit please. thank you Orly De Oliveira 03/27/2024 4:07 PM Signed Called patient to schedule post op/virtual visit with Slaly Dennis and he told me that now is not a good time as he was driving and to call him back tomorrow - will try again then. Thanks Orly De Oliveira 03/28/2024 1:25 PM Signed Patient is scheduled for post op apt on 04/02 with Sally Dennis and patient confirmed apt. thanks Allergies As of Date: 03/27/2024 Noted Allergy Reaction AMOXACILLIN (AMOXICILLIN) 04/13/2016 16 - Unknown AUGMENTIN (AMOXICILLIN-POT CLAVUL*04/13/2016 14 - Other: See Comments Comments: Nausea Date Reviewed: 03/01/2024 Reviewed by: Hossein Sung, ELIAN - Fully Assessed Reason for Visit: Appointment [186] Prescriptions as of 03/28/2024 - lisinopril (ZESTRIL) 10 mg tablet Take 10 mg by mouth once daily. - GABAPENTIN, BULK, MISC 300 mg BID - pantoprazole DR (PROTONIX) 40 mg tablet Take 40 mg by mouth two times a day. - trospium (SANCTURA) 20 mg tablet Take 20 mg by mouth daily at bedtime. - multivitamin tablet Take 1 tablet by mouth once daily. - CPAP/BIPAP/OTHER autopap [id number] [facility] - allopurinol (ZYLOPRIM) 300 mg tablet Take 300 mg by mouth. - atorvastatin (LIPITOR) 20 mg tablet Take 20 mg by mouth. - metFORMIN (GLUCOPHAGE) 1,000 mg tablet Take 1,000 mg by mouth once daily. - SITagliptin (JANUVIA) 100 mg tablet Take 100 mg by mouth once daily. - levothyroxine (SYNTHROID) 88 mcg tablet Take 88 mcg by mouth once daily. - buPROPion XL (WELLBUTRIN XL) 150 mg 24 hr tablet Take 150 mg by mouth. - venlafaxine ER (EFFEXOR XR) 75 mg 24 hr capsule Take 75 mg by mouth once daily. Meds Comments as of 01/23/2024: Pt poor historian with meds, initially stated meds were correct, Coleen had list that was somewhat different than [facility] meds, all updated per Coleen's med list Problem List As Of Date 03/27/2024 Noted Resolved ADD (attention deficit hyperactivity disorder, *12/07/2016 Snoring [R06.83] 12/30/2020 Excessive daytime sleepiness [G47.19] 12/30/2020 Retention of urine [R33.9] 11/11/2023 HTN (hypertension) [I10] 01/23/2024 HLD (hyperlipidemia) [E78.5] 01/23/2024 Acquired hypothyroidism [E03.9] 01/23/2024 Depression [F32.A] 01/23/2024 ELLEN on CPAP [G47.33] 01/23/2024 Anemia [D64.9] 08/02/2021 GERD (gastroesophageal reflux disease) [K21.9] 09/25/2021 Gout [M10.9] 02/21/2024 Type 2 diabetes mellitus without complication (*03/24/2011 Gait difficulty [R26.9] 02/21/2024 Encounter Status:Closed by ORLY DE OLIVEIRA on 03/28/24 [facility] ANES POSTPROC EVALon 024 ANES POSTPROC EVAL HNO ID: [id number] Author: CANDI BAIN MD Service: ? Author Type: Physician Type: Anesthesia Postprocedure Evaluation Filed: 03/01/2024 12:16 Note Text: POST ANESTHESIA EVALUATION NOTE : 1950 Procedure Summary Date: 03/01/24 Room / Location: [address] OR Anesthesia Start: 1039 Anesthesia Stop: 1125 Procedures: IMPLANT STIMULATOR LEAD(S) BLADDER INCISIONAL APPROACH (Back lower ) INSRT NSTIM GENERATOR BLADDER W/ POCKET CREATE AND CONNECT BTWN ELCTRD ARRAY AND PULSE GENERATOR OR RECVR (Back lower ) Diagnosis: Urge incontinence (Urge incontinence [N39.41]) Surgeons: Alex Newman MD Responsible Provider: Candi Bain MD Anesthesia Type: MAC ASA Status: 3 Anesthesia Type: MAC Last Vitals Vitals Value Taken Time BP 120/67 03/01/24 1201 Temp 36 ?C (96.8 ?F) 03/01/24 1129 HR SpO2 64 03/01/24 1200 Resp 16 03/01/24 1200 SpO2 98 % 03/01/24 1200 Post Anesthesia Patient Status Patient Evaluation: PACU. PACU/ICU Patient Condition: stable. Anticipated Disposition: phase 2 then home. Neurological Status: aware and responsive. Pulmonary Status: breathing comfortably on room air Airway Control: returned to baseline unsupported. Cardiovascular Status: stable. Pain Management: clinically adequate - multimodal analgesia pain management approach Postoperative Hydration: acceptable. Intraoperative Events: no significant anesthesia events Recommendation: continue current plan of care. Anesthesia Observations No Documentation SIGNATURE: Candi Bain MD PATIENT NAME: Sarmad Almeida DATE: March 01, 2024 TIME: 12:15 PM CSN: [id number] Normal [facility] ANES PRE-OPon 03-01-2024 ANES PRE-OP HNO ID: [id number] Author: CANDI BAIN MD Service: ? Author Type: Physician Type: Anesthesia Preprocedure Evaluation Filed: 03/01/2024 10:00 Note Text: ANESTHESIOLOGY DAY OF SURGERY NOTE : 1950 Procedure Information Date/Time: 03/01/24 1000 Procedures: IMPLANT STIMULATOR LEAD(S) BLADDER INCISIONAL APPROACH INSRT NSTIM GENERATOR BLADDER W/ POCKET CREATE AND CONNECT BTWN ELCTRD ARRAY AND PULSE GENERATOR OR RECVR Location: [address] OR Surgeons: Alex Newman MD Estimated body mass index is 27.02 kg/m? as calculated from the following: Height as of 02/21/24: 175.3 cm (5' 9 ). Weight as of 02/21/24: 83 kg (183 lb). Most recent hematocrit and potassium results: No results found for this basename: HCT,HEMATOCRIT,K,POTASSIUM Relevant Problems No relevant active problems I - PHYSICAL EVALUATION AIRWAY Patient intubated: No. Tracheostomy tube not present Mallampati: III. TM distance: >3 FB. Neck ROM: full ROM without neurological symptoms. Mouth opening: adequate. Short neck: no. Thick neck: no DENTAL Normal dental observations. Dental findings: teeth intact. Additional exam findings: no II - ANESTHESIA PLAN ASA Score: 3 Anesthetic Plan: MAC NPO Status: adequate Beta Hattie Monitoring Plan Monitoring plan: Standard ASA. Post Procedure Analgesic Plan Postoperative analgesic plan: parenteral or oral opioids and multimodal analgesia. Informed Consent Anesthetic risks, benefits, alternatives, personnel and consent discussed: yes. Patient / Responsible Alliance Party agrees to proceed: yes Patient / Surrogate agrees to blood products: blood products not planned DNR status not reviewed with patient and/or family prior to surgery. Significant changes in the patient condition since the History and Physical, not otherwise documented in primary service progress note: no. Potential Anesthesia issues that may suggest increased risk of complications or contraindication to planned procedure: none. No vitals data found for the desired time range. Facility-Administered Medications as of 03/01/2024 Medication Dose Route Frequency lidocaine (PF) 10 mg/mL (1 %) 1-2 mg injection (XYLOCAINE) 0.1-0.2 mL INTRADERMAL PRN lactated ringers iv infusion 5-30 mL/hr INTRAVENOUS CONTINUOUS NaCl 0.9% iv flush bag 20 mL INTRAVENOUS PRN vancomycin iv piggyback 1 g in D5W 200 mL (VANCOCIN) 1 g INTRAVENOUS Pre-Op Once [START ON 03/02/2024] gentamicin 80 mg in 0.9% NaCl 50 mL 80 mg INTRAVENOUS Wellness Nurse Rn to OR Outpatient Medications as of 03/01/2024 Medication Sig lisinopril (ZESTRIL) 10 mg tablet Take 10 mg by mouth once daily. GABAPENTIN, BULK, MISC [address] (PROTONIX) 40 mg tablet Take 40 mg by mouth two times a day. trospium (SANCTURA) 20 mg tablet Take 20 mg by mouth daily at bedtime. multivitamin tablet Take 1 tablet by mouth once daily. CPAP/BIPAP/OTHER autopap [id number] [facility] all[facility]ol (ZYLOPRIM) 300 mg tablet Take 300 mg by mouth. atorvastatin (LIPITOR) 20 mg tablet Take 20 mg by mouth. metFORMIN (GLUCOPHAGE) 1,000 mg tablet Take 1,000 mg by mouth once daily. SITagliptin (JANUVIA) 100 mg tablet Take 100 mg by mouth once daily. levothyroxine (SYNTHROID) 88 mcg tablet Take 88 mcg by mouth once daily. buPROPion XL (WELLBUTRIN XL) 150 mg 24 hr tablet Take 150 mg by mouth. venlafaxine ER (EFFEXOR XR) 75 mg 24 hr capsule Take 75 mg by mouth once daily. I have interviewed and examined the patient. I have reviewed the medical record and/or the pre-anesthesia evaluation, pertinent labs, and test results. This contains updated information obtained within 48 hours of Surgery/Procedure. SIGNATURE: Candi Bain MD PATIENT NAME: Sarmad Almeida DATE: March 01, 2024 TIME: 10:00 AM CSN: [id number] [facility] OPERATIVE NOon 03-01-2024 OPERATIVE NO HNO ID: [id number] Author: ALEX NEWMAN MD Service: Urology Author Type: Physician Type: Operative Report Filed: 03/02/2024 13:04 Note Text: [facility]PS Operative Report Log ID: [id number] Surgery Date: 03/01/2024 Incision/Procedure Start Time: 11:03 AM Incision Close/Procedure End Time: 11:21 AM Surgeon(s) and Sweeper Operator Highways(s): Surgeon(s) and Role: * Alex Newman MD - Primary * Amandeep Soto MD - Resident - Assisting Preoperative Diagnosis: Urge incontinence [N39.41] Postoperative Diagnosis: * No post-op diagnosis entered * PROCEDURE AND ANESTHESIA TYPE: Implantation of InterStim X neurogenerator electrical program analysis initial programming less than 1 hour OPERATIVE INDICATIONS: This is a very pleasant patient with a history of symptomatic non-obstructive urinary retention he has been tried with the InterStim I lead placement and has done extremely well with greater than 50% improvement in his symptoms. he has a voiding diary proof of this, which has now been scanned at the electronic medical record. The patient was apprised of treatment options and wished to undergo the InterStim X neurogenerator system implant. The procedure materials, personnel, indications, alternatives, risks, and benefits were described in detail. Consent was obtained. The patient now presents for definitive therapy. OPERATIVE FINDINGS: No evidence of infection in previously created pocket Uneventful placement of Interstim X neurogenerator with normal impedance check Intravenous Fluids: 1000 cc Estimated Blood Loss: 5 cc Condition: Stable Disposition: PACU PROCEDURE AND TECHNIQUE: The patient was administered a MAC anesthetic and preoperative intravenous antibiotics, vanc and gentamicin. The patient was carefully placed in the prone position, and her gluteal area was prepped and draped in standard sterile fashion. The operative field was prepped and draped. We then injected a solution of lidocaine plain mixed with 0.25% marcaine overlying the incisional site, and this was then sequentially opened and then the percutaneous extension wire was disconnected and discarded. The incision was then deepened to allow implantation of the InterStim X neurogenerator. We then connected the InterStim X to the system after the pocket was irrigated and then proceeded to place the generator into the pocket subsequent to which time, electrical programming analysis was performed. Electrical analysis demonstrated normal impedance values throughout all lead points and accordingly the device was programmed to the same settings as his external stimulator box for less than 1 hour. The incision was then closed with a 2-0 Vicryl followed by 4-0 Vicryl subcuticular closure and Steri-Strips. Clean case. No complications. No accidental perforations/lacerations. Primary surgeon/proceduralist performed the procedure with assistance. SIGNATURE: Amandeep Soto MD PATIENT NAME: Sarmad Almeida DATE: March 01, 2024 TIME: 11:34 AM PAGER/CONTACT #: [phone] Alex Newman MD [facility] HISTORY PHYSICALon HISTORY PHYSICAL HNO ID: [id number] Author: KIMMY CARPENTER APRN.ADDRESSOGRAPH OPERATOR Service: ? Author Type: Nurse Practitioner Type: H&P Filed: 02/26/2024 15:18 Note Text: PREANESTHESIA CONSULT CLINIC TELEHEALTH VISIT Patient has been identified by name and date of : Yes Reason for contact: PACC visit Accompanied by: Self This is a virtual visit using [employer] Video Visit. It required patient-provider interaction for the medical decision making as documented below. I have communicated my name and active licensure. The patient's identity and physical location were verified at the time of this visit. Either the patient or their legal sales representative publications has been informed of the risks and benefits of and alternatives to treatment through a remote evaluation and consents to proceed with the evaluation remotely. REASON FOR VISIT: Sarmad Almeida is a 73 year old male who is scheduled for IMPLANT STIMULATOR LEAD(S) BLADDER INCISIONAL APPROACH INSRT NSTIM GENERATOR BLADDER W/ POCKET CREATE AND CONNECT BTWN ELCTRD ARRAY AND PULSE GENERATOR OR RECVR at the request of Dr. Alex Newman for consultation. My final recommendation will be communicated back to the requesting physician by way of shared medical record or letter. My final recommendation will be communicated back to the requesting physician by way of shared medical record or letter. ASSESSMENT: HTN (hypertension) Assessment: stable and compliant with current medications Last 5 Encounter BP Readings: Date: BP: 02/09/2024 110/68 12/05/2023 136/86 09/21/2023 172/103 12/30/2020 116/73 12/30/2020 120/82 HLD (hyperlipidemia) Assessment: stable with current medication regimen ELLEN on CPAP Assessment: CPAP compliant GERD (gastroesophageal reflux disease) Assessment: Managed and stable with current medication. Denies difficulty swallowing or any bleeding. Type 2 diabetes mellitus without complication (HCC) Assessment: Currently taking metformin, januvia 02/24/24 Acquired hypothyroidism Assessment: stable with current medication regimen Anemia Assessment: Stable. Denies bleeding. CBC today No results found for: HB Gout Assessment: remote history of gout, denies any recent exacerbation Depression Assessment: stable with current medication regimen Retention of urine Assessment: straight caths multiple times daily. InterStim Peripheral Nerve Stimulation Stage 1 occurred on 02/14/24. 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 Fall risk. ANESTHESIA FINDINGS: Intubation History: No history of difficult intubation Significant Anesthesia Considerations: None Airway Exam: General: Normal appearance Body mass index is 27.02 kg/m?. Mallampati Score is CLASS III ULBT: Class III - Lower incisors cannot bite the upper lip Neck: Distance from hyoid to mentum during neck extension is at least 3 finger breaths, good ROM in neck but with painful to look up. Mouth: Normal tongue size and Mouth opening greater than 2 finger breaths Dentition: Intact Airway History: No abnormal airway history METS: Walk indoors, such as around the house (1.75 METs) Do light work around the house, such as dusting or washing dishes (2.70 METs) Take care of self; that is eating, dressing, bathing, using the toilet (2.75 METs) Walk a block or two on level ground (2.75 METs) Patient denies any chest pain or undue shortness of breath with the above physical activity. Prepared for surgery: This patient is optimally prepared for surgery. CONSULTS: Patient does not require consults for optimization at this time. The Following Tests/Procedures Have Been Initiated: Orders Placed This Encounter BMP Standing Status: Future Standing Expiration Date: 05/22/2024 Complete Blood Count and Differential Standing Status: Future Standing Expiration Date: 05/22/2024 Hemoglobin A1C Standing Status: Future Standing Expiration Date: 05/22/2024 Planned Anesthetic: Per anesthesia choice Subjective CHIEF COMPLAINT: Urge incontinence [N39.41] HPI: Patient is a 73 year old MALE presenting for pre-op evaluation for the above procedure. Patient denies any chest pain, shortness of breath, palpitations, fever/chills, nausea/vomiting, fatigue, or diarrhea. ACTIVE PROBLEM LIST Add (Attention Deficit Hyperactivity Disorder, Inattentive Type) Snoring Excessive Daytime Sleepiness Retention of Urine Htn (Hypertension) Hld (Hyperlipidemia) Acquired Hypothyroidism Depression Ellen On Cpap Anemia Gerd (Gastroesophageal Reflux Disease) Gout Type 2 Diabetes Mellitus Without Complication (Hcc) PAST MEDICAL HISTORY Diagnosis Date Diabetes (HCC) Hypertension Sleep apnea PAST SURGICAL HISTORY Procedure Laterality Date PAST SURGICAL HISTORY OF kidney stone PAST SURGICAL HISTORY OF colon surger (more content not included)... Normal [facility] CNPNon 02-17-2024 CNPN Telephone (UROLMN) -- SARMAD ALMEIDA ([id number]) 1950 M Date Time Provider Department 02/17/24 NEEL FREGOSO During your visit today, we recorded the following information about you: Neel Fregoso MD 02/17/2024 4:00 PM Signed Phone encounter following patient message. Some pain around the extension wire area. Image will be sent through Telly for review. Neel Fregoso MD Allergies As of Date: 02/17/2024 Noted Allergy Reaction AMOXACILLIN (AMOXICILLIN) 04/13/2016 16 - Unknown AUGMENTIN (AMOXICILLIN-POT CLAVUL*04/13/2016 14 - Other: See Comments Comments: Nausea Date Reviewed: 02/09/2024 Reviewed by: Jackson Lazcano, ELIAN - Fully Assessed Prescriptions as of 02/17/2024 - lisinopril (ZESTRIL) 10 mg tablet Take 10 mg by mouth once daily. - GABAPENTIN, BULK, MISC 300 mg BID - pantoprazole DR (PROTONIX) 40 mg tablet Take 40 mg by mouth two times a day. - trospium (SANCTURA) 20 mg tablet Take 20 mg by mouth daily at bedtime. - multivitamin tablet Take 1 tablet by mouth once daily. - CPAP/BIPAP/OTHER autopap [id number] [facility] [place] Contact At Once! tiffin - allopurinol (ZYLOPRIM) 300 mg tablet Take 300 mg by mouth. - atorvastatin (LIPITOR) 20 mg tablet Take 20 mg by mouth. - metFORMIN (GLUCOPHAGE) 1,000 mg tablet Take 1,000 mg by mouth once daily. - SITagliptin (JANUVIA) 100 mg tablet Take 100 mg by mouth once daily. - levothyroxine (SYNTHROID) 88 mcg tablet Take 88 mcg by mouth once daily. - buPROPion XL (WELLBUTRIN XL) 150 mg 24 hr tablet Take 150 mg by mouth. - venlafaxine ER (EFFEXOR XR) 75 mg 24 hr capsule Take 75 mg by mouth once daily. Meds Comments as of 01/23/2024: Pt poor historian with meds, initially stated meds were correct, Coleen had list that was somewhat different than Celleration meds, all updated per Coleen's med list Problem List As Of Date 02/17/2024 Noted Resolved ADD (attention deficit hyperactivity disorder, *12/07/2016 Snoring [R06.83] 12/30/2020 Excessive daytime sleepiness [G47.19] 12/30/2020 Retention of urine [R33.9] 11/11/2023 HTN (hypertension) [I10] 01/23/2024 HLD (hyperlipidemia) [E78.5] 01/23/2024 Acquired hypothyroidism [E03.9] 01/23/2024 Depression [F32.A] 01/23/2024 ELLEN on CPAP [G47.33] 01/23/2024 Medications Discontinued During This Encounter Prescriptions - Tadalafil 5 mg tablet (Discontinued) Take 5 mg by mouth as needed. Encounter Status:Closed by NEEL FREGOSO on 02/17/[facility] S[facility] ([id number]) 1950 M Date Time Provider Department 02/17/24 NEWMAN, ALEX B GLQ During your visit today, we recorded the following information about you: Erich Cardoso 02/17/2024 2:14 PM Signed Patient has been identified by name and date of : Yes Reason for call: Patient calling the office today to report that the pack came loose and he is having some pain in his back. He is asking also if his implant surgery can be moved up earlier than 03/01/24 refrigeration person: Patient Phone number to reach you at: [phone] Neel Fregoso MD 02/17/2024 4:28 PM Addendum Images reviewed, I am not concerned with infection at this point. Taking patient's symptoms, pain m/p musculoskeletal. Neel Fregoso MD Allergies As of Date: 02/17/2024 Noted Allergy Reaction AMOXACILLIN (AMOXICILLIN) 04/13/2016 16 - Unknown AUGMENTIN (AMOXICILLIN-POT CLAVUL*04/13/2016 14 - Other: See Comments Comments: Nausea Date Reviewed: 02/09/2024 Reviewed by: Jackson Lazcano RN - Fully Assessed Reason for Visit: Patient Question [1317] Prescriptions as of 02/17/2024 - lisinopril (ZESTRIL) 10 mg tablet Take 10 mg by mouth once daily. - GABAPENTIN, BULK, MISC 300 mg BID - pantoprazole DR (PROTONIX) 40 mg tablet Take 40 mg by mouth two times a day. - trospium (SANCTURA) 20 mg tablet Take 20 mg by mouth daily at bedtime. - multivitamin tablet Take 1 tablet by mouth once daily. - CPAP/BIPAP/OTHER autopap [id number] [facility] [employer] tiffin - allopurinol (ZYLOPRIM) 300 mg tablet Take 300 mg by mouth. - atorvastatin (LIPITOR) 20 mg tablet Take 20 mg by mouth. - metFORMIN (GLUCOPHAGE) 1,000 mg tablet Take 1,000 mg by mouth once daily. - SITagliptin (JANUVIA) 100 mg tablet Take 100 mg by mouth once daily. - levothyroxine (SYNTHROID) 88 mcg tablet Take 88 mcg by mouth once daily. - buPROPion XL (WELLBUTRIN XL) 150 mg 24 hr tablet Take 150 mg by mouth. - venlafaxine ER (EFFEXOR XR) 75 mg 24 hr capsule Take 75 mg by mouth once daily. Meds Comments as of 01/23/2024: Pt poor historian with meds, initially stated meds were correct, Coleen had list that was somewhat different than epic meds, all updated per Coleen's med list Problem List As Of Date 02/17/2024 Noted Resolved ADD (attention deficit hyperactivity disorder, *12/07/2016 Snoring [R06.83] 12/30/2020 Excessive daytime sleepiness [G47.19] 12/30/2020 Retention of urine [R33.9] 11/11/2023 HTN (hypertension) [I10] 01/23/2024 HLD (hyperlipidemia) [E78.5] 01/23/2024 Acquired hypothyroidism [E03.9] 01/23/2024 Depression [F32.A] 01/23/2024 ELLEN on CPAP [G47.33] 01/23/2024 Encounter Status:Closed by ERICH CARDOSO on 02/17/[address] [facility] ([id number]) 1950 Date Time Provider Department 02/13/24 NEEL FREGOSO UROLBE During your visit today, we recorded the following information about you: Neel Fregoso MD 02/13/2024 1:23 PM Signed Phone encounter following stage 1 Bladder has increased it's ability to hold urine, can urinate on his own between cathing. Urge improved. FI has markedly improved! All documented in bladder diaries - will be scanned to chart once evaluation is done. More then 50% improvement. 75% improvement with FI. 55% improvement with bladder symptoms. Willing to proceed to full implant. MD Max Bull Nicole M 02/14/2024 2:39 PM Signed Called patient to offer date for surgery. Offered March 01 at [facility]. Patient accepted. Patient would like to be considered if something sooner. Thanks Allergies As of Date: 02/13/2024 Noted Allergy Reaction AMOXACILLIN (AMOXICILLIN) 04/13/2016 16 - Unknown AUGMENTIN (AMOXICILLIN-POT CLAVUL*04/13/2016 14 - Other: See Comments Comments: Nausea Date Reviewed: 02/09/2024 Reviewed by: Jackson Lazcano RN - Fully Assessed Reason for Visit: Schedule Surgery [1330] Cmt: Prescriptions as of 02/14/2024 - sulfamethoxazole-trimethop rim (BACTRIM DS) 800-160 mg per tablet Take 1 tablet by mouth two times a day for 5 days. - lisinopril (ZESTRIL) 10 mg tablet Take 10 mg by mouth once daily. - GABAPENTIN, BULK, MISC 300 mg BID - pantoprazole DR (PROTONIX) 40 mg tablet Take 40 mg by mouth two times a day. - trospium (SANCTURA) 20 mg tablet Take 20 mg by mouth daily at bedtime. - multivitamin tablet Take 1 tablet by mouth once daily. - CPAP/BIPAP/OTHER autopap [id number] [facility] [place] [facility] Contact At Once! tiffin - allopurinol (ZYLOPRIM) 300 mg tablet Take 300 mg by mouth. - atorvastatin (LIPITOR) 20 mg tablet Take 20 mg by mouth. - metFORMIN (GLUCOPHAGE) 1,000 mg tablet Take 1,000 mg by mouth once daily. - SITagliptin (JANUVIA) 100 mg tablet Take 100 mg by mouth once daily. - levothyroxine (SYNTHROID) 88 mcg tablet Take 88 mcg by mouth once daily. - buPROPion XL (WELLBUTRIN XL) 150 mg 24 hr tablet Take 150 mg by mouth. - venlafaxine ER (EFFEXOR XR) 75 mg 24 hr capsule Take 75 mg by mouth once daily. - Tadalafil 5 mg tablet Take 5 mg by mouth as needed. Meds Comments as of 01/23/2024: Pt poor historian with meds, initially stated meds were correct, Coleen had list that was somewhat different than epic meds, all updated per Coleen's med list Problem List As Of Date 02/13/2024 Noted Resolved ADD (attention deficit hyperactivity disorder, *12/07/2016 Snoring [R06.83] 12/30/2020 Excessive daytime sleepiness [G47.19] 12/30/2020 Retention of urine [R33.9] 11/11/2023 HTN (hypertension) [I10] 01/23/2024 HLD (hyperlipidemia) [E78.5] 01/23/2024 Acquired hypothyroidism [E03.9] 01/23/2024 Depression [F32.A] 01/23/2024 ELLEN on CPAP [G47.33] 01/23/2024 Encounter Status:Closed by NEEL FREGOSO on 02/13/24 [facility] ANES POSTPROC EVALon 024 ANES POSTPROC EVAL HNO ID: [id number] Author: FOX HARRINGTON DO Service: Anesthesiology Author Type: Anesthesiologist Type: Anesthesia Postprocedure Evaluation Filed: 02/09/2024 11:25 Note Text: POST ANESTHESIA EVALUATION NOTE : 1950 Procedure Summary Date: 02/09/24 Room / Location: [address] Anesthesia Start: 951 Anesthesia Stop: 1104 Procedure: IMPLANT STIMULATOR LEAD(S) BLADDER INCISIONAL APPROACH Diagnosis: Urge incontinence (Urge incontinence [N39.41]) Surgeons: Alex Newman MD Responsible Provider: Fox Harrington DO Anesthesia Type: MAC ASA Status: 3 Anesthesia Type: MAC Last Vitals Vitals Value Taken Time BP 120/77 02/09/24 1115 Temp 36.5 ?C (97.7 ?F) 02/09/24 1104 Pulse 78 02/09/24 1115 Resp 16 02/09/24 1115 SpO2 98 % 02/09/24 1115 Post Anesthesia Patient Status Patient Evaluation: PACU. PACU/ICU Patient Condition: stable. Anticipated Disposition: phase 2 then home. Neurological Status: aware and responsive. Pulmonary Status: breathing comfortably on supplemental oxygen Airway Control: returned to baseline unsupported. Cardiovascular Status: stable. Pain Management: clinically adequate Postoperative Hydration: acceptable. Intraoperative Events: no significant anesthesia events Post Operative Nausea/Vomiting Status: no significant post operative nausea or vomiting Recommendation: continue current plan of care. Anesthesia Observations No Documentation SIGNATURE: Fox Harrington DO PATIENT NAME: Sarmad Almeida DATE: February 09, 2024 TIME: 11:24 AM CSN: [id number] Normal [facility] ANES PRE-OPon 02-09-2024 ANES PRE-OP HNO ID: [id number] Author: FOX HARRINGTON DO Service: Anesthesiology Author Type: Anesthesiologist Type: Anesthesia Preprocedure Evaluation Filed: 02/09/2024 08:14 Note Text: ANESTHESIOLOGY DAY OF SURGERY NOTE : 1950 Procedure Information Date/Time: 02/09/2445 Procedure: IMPLANT STIMULATOR LEAD(S) BLADDER INCISIONAL APPROACH Location: [address] OR Surgeons: Alex Newman MD Estimated body mass index is 27.83 kg/m? as calculated from the following: Height as of 01/23/24: 172.7 cm (5' 8 ). Weight as of 01/23/24: 83 kg (183 lb). Most recent hematocrit and potassium results: No results found for this basename: HCT,HEMATOCRIT,K,POTASSIUM Relevant Problems No relevant active problems ECHO ECHO Order: [id number] Narrative Normal LV size and function, EF 57%. Normal RV size and function. Mild to modderately thickened AoV and MV with trivial MR and TR, but doubt vegetations. Moderately dilated aortic root, 4.5 cm. Left Ventricle Chamber size is normal. Normal wall thickness. Normal global wall motion. Regional wall motion is normal. Ejection fraction is normal (55 - 60%). Diastolic function is normal. I - PHYSICAL EVALUATION AIRWAY Patient intubated: No. Tracheostomy tube not present Mallampati: III. TM distance: >3 FB. Neck ROM: full ROM without neurological symptoms. Mouth opening: adequate. Short neck: yes. Thick neck: yes DENTAL Dental findings: teeth intact. Additional exam findings: yes. CARDIOVASCULAR Rhythm: regular Rate: normal PULMONARY Breath sounds clear to auscultation. II - ANESTHESIA PLAN ASA Score: 3 Anesthetic Plan: MAC The patient is not a current smoker. NPO Status: adequate Beta Hattie Monitoring Plan Monitoring plan: standard ASA. Post Procedure Analgesic Plan Postoperative analgesic plan: parenteral or oral opioids and per surgical service. Informed Consent Anesthetic risks, benefits, alternatives, personnel and consent discussed: yes. Patient / Responsible Alliance Party agrees to proceed: yes Patient / Surrogate agrees to blood products: Yes Significant changes in the patient condition since the History and Physical, not otherwise documented in primary service progress note: no. Potential Anesthesia issues that may suggest increased risk of complications or contraindication to planned procedure: none. No vitals data found for the desired time range. Facility-Administered Medications as of 02/09/2024 Medication Dose Route Frequency lidocaine (PF) 10 mg/mL (1 %) 1-2 mg injection (XYLOCAINE) 0.1-0.2 mL INTRADERMAL PRN lactated ringers iv infusion 5-30 mL/hr INTRAVENOUS CONTINUOUS NaCl 0.9% iv flush bag 20 mL INTRAVENOUS PRN ceFAZolin 2 g in dextrose (iso-osmotic) 50 mL (ANCEF,KEFZOL) 2 g INTRAVENOUS Pre-Op Once Outpatient Medications as of 02/09/2024 Medication Sig allopurinol (ZYLOPRIM) 300 mg tablet Take 300 mg by mouth. atorvastatin (LIPITOR) 20 mg tablet Take 20 mg by mouth. buPROPion XL (WELLBUTRIN XL) 150 mg 24 hr tablet Take 150 mg by mouth. CPAP/BIPAP/OTHER autopap [id number] [facility] Contact At Once! tiffin metFORMIN (GLUCOPHAGE) 1,000 mg tablet Take 1,000 mg by mouth once daily. SITagliptin (JANUVIA) 100 mg tablet Take 100 mg by mouth once daily. levothyroxine (SYNTHROID) 88 mcg tablet Take 88 mcg by mouth once daily. venlafaxine ER (EFFEXOR XR) 75 mg 24 hr capsule Take 75 mg by mouth once daily. Tadalafil 5 mg tablet Take 5 mg by mouth as needed. I have interviewed and examined the patient. I have reviewed the medical record and/or the pre-anesthesia evaluation, pertinent labs, and test results. This contains updated information obtained within 48 hours of Surgery/Procedure. SIGNATURE: Fox Harrington DO PATIENT NAME: Sarmad Almeida DATE: February 09, 2024 TIME: 8:12 AM CSN: [id number] [facility] NURSING PROGon 02-09-2024 NURSING PROG HNO ID: [id number] Author: JACKSON LAZCANO RN Service: ? Author Type: Registered Nurse Type: Nursing Progress Note Filed: 02/09/2024 12:04 Note Text: Patient awake, denies pain. Yanlei with [employer] at bedside educating both patient and spouse on stimulator. 1200: D/C instructions reviewed, stated understanding. Normal [facility] OPERATIVE NOon 02-09-2024 OPERATIVE NO HNO ID: [id number] Author: ALEX NEWMAN MD Service: Urology Author Type: Physician Type: Operative Report Filed: 02/14/2024 13:49 Note Text: OPERATIVE/PROCEDURE REPORT LOG ID: [id number] SURGERY/PROCEDURE DATE: 02/09/2024 INCISION/PROCEDURE START TIME: 10:16 AM INCISION CLOSE/PROCEDURE END TIME: 10:58 AM SURGEON(S)/PROCEDURALIST(S ) AND ASSISTANT HAIRSTYLIST(S): Surgeon(s) and Role: * Alex Newman MD - Primary * Neel Fregoso MD - Fellow No Additional Staff SURGERY/PROCEDURE(S): InterStim Peripheral Nerve Stimulation Stage 1- Incision and implantation of tined quadripolar lead electrodes into left S3 Foramen Fluoroscopic guidance for needle placement, less than 1 hour ANESTHESIA: Monitored Anesthesia Care SURGERY/PROCEDURE DETAILS: Indication: This patient has a history of refractory urinary urgency/frequency, non-obstructive urinary retention, and fecal incontinence. This has been substantiated on voiding diaries preoperatively, and the patient has failed or not tolerated conservative management or medications. Despite this, significant bothersome symptoms persist. Accordingly, options were discussed with the patient and the decision was made to undergo InterStim neuromodulation. The procedure, materials, personnel, indications, alternatives, risks, and benefits were described in great detail. Informed consent was obtained. Procedure: The patient was brought to the operative suite, properly identified utilizing two patient identifiers and placed in prone position per OR protocol. The safety checklist was performed. IV Cefazolin and MAC anesthesia were administered. The patient was prepped and draped in usual sterile fashion. Using fluoroscopic localization, the approximate locations of the S2, S3 and S4 neural foramina were identified. A timeout per protocol was then carried out. Local anesthesia was administered. The spinal needle was then passed and proper foramen needle position was confirmed with fluoroscopy , direct observation of martin, and observation of plantar flexion of the great toe. The patient's left S3 neural foramen had the following response: Lead 1 Location: S3: left MOTOR RESPONSE: Electrode 0 1 2 3 Anal Martin - + + + Flexion of Great Toe + + + - Amplitude 1.2 1.2 1.2 1.2 A curved stylette was used to place the sacral lead. We placed approximately 2 contacts below the sacral plate. Utilizing the tunneling device, we then tunneled the lead to a right upper gluteal incision site created with sharp dissection and cautery. It was connected to a percutaneous extension wire by tightening the 4 setscrews and this was then secured with permanent sutures over the boot. The percutaneous extension wire was tunneled out a contralateral exit site. Hemostasis was achieved. The incision was then closed with absorbable suture and a dressing was applied. The patient was taken to the PACU in stable condition. Using the external test stimulator, the patient was programmed to the optimal response and given instructions on utilizing the external test stimulator prior to discharge. A urinary diary will be kept until re-evaluation to discuss results of this test stimulation. PRE-OP/PRE-PROCEDURE DIAGNOSIS: Fecal incontinence, urgency, non obstructive urinary retention POST-OP/POST-PROCEDURE DIAGNOSIS: Same as Preop ESTIMATED BLOOD LOSS: 15 mls SPECIMENS: None IMPLANTABLE DEVICES: Implant Name Type Inv. Item Serial No. Graduate Recruiter Lot No. LRB No. Used Action LEAD INTRSTIM MRI 28CM - [id number] Lead LEAD INTRSTIM MRI 28CM [employer] [id number] Pending 1 Implanted DRAINS: None COMPLICATIONS: None CLOSURE TECHNIQUE: Primary PARTICIPATION IN SURGERY/PROCEDURE: I/primary surgeon/proceduralist performed the procedure with assistance. SIGNATURE: Neel Fregoso MD PATIENT NAME: Sarmad Alcantar Elle DATE: February 09, 2024 TIME: 11:09 AM Alex Newman MD [facility] SARMAD ALMEIDA ([id number]) 1950 Date Time Provider Department 01/25/24 GABBIE NUNES PAHCB1 During your visit today, we recorded the following information about you: Gabbie Nunes APRN.CNP 01/25/2024 10:06 AM Signed Following up on phone call for labs from Dr Khan office. Called office, spoke with Kyung, she states she will fax to my [place] PACC office. Included resource nurses on message to follow up on labs. Gabbie Nunes APRN.Abril Melissa RN 01/30/2024 1:50 PM Signed Response copied below Abril Cooper RN January 30, 2024 1:49 PM PACC Gabbie Nunes APRN.Sally Yoder RN3 days ago Labs reviewed, OK to proceed VERNELL Varma Kathleen M, RN Urdzik, Lynda, APRN.CNP5 days ago [facility] , Labs are scanned in Donews, they are from 10/08 Dina Plummer Allergies As of Date: 01/25/2024 Noted Allergy Reaction AMOXACILLIN (AMOXICILLIN) 04/13/2016 16 - Unknown AUGMENTIN (AMOXICILLIN-POT CLAVUL*04/13/2016 14 - Other: See Comments Comments: Nausea Date Reviewed: 01/23/2024 Reviewed by: Gabbie Nunes APRN.CNP - Fully Assessed Reason for Visit: PreOp Call [[id number]] Prescriptions as of 01/30/2024 - lisinopril (ZESTRIL) 10 mg tablet Take 10 mg by mouth once daily. - GABAPENTIN, BULK, MISC 300 mg BID - pantoprazole DR (PROTONIX) 40 mg tablet Take 40 mg by mouth two times a day. - trospium (SANCTURA) 20 mg tablet Take 20 mg by mouth daily at bedtime. - multivitamin tablet Take 1 tablet by mouth once daily. - CPAP/BIPAP/OTHER autopap [id number] [facility] Contact At Once! tiffin - allopurinol (ZYLOPRIM) 300 mg tablet Take 300 mg by mouth. - atorvastatin (LIPITOR) 20 mg tablet Take 20 mg by mouth. - metFORMIN (GLUCOPHAGE) 1,000 mg tablet Take 1,000 mg by mouth once daily. - SITagliptin (JANUVIA) 100 mg tablet Take 100 mg by mouth once daily. - levothyroxine (SYNTHROID) 88 mcg tablet Take 88 mcg by mouth once daily. - buPROPion XL (WELLBUTRIN XL) 150 mg 24 hr tablet Take 150 mg by mouth. - venlafaxine ER (EFFEXOR XR) 75 mg 24 hr capsule Take 75 mg by mouth once daily. - Tadalafil 5 mg tablet Take 5 mg by mouth as needed. Meds Comments as of 01/23/2024: Pt poor historian with meds, initially stated meds were correct, Coleen had list that was somewhat different than [facility] meds, all updated per Coleen's med list Problem List As Of Date 01/25/2024 Noted Resolved ADD (attention deficit hyperactivity disorder, *12/07/2016 Snoring [R06.83] 12/30/2020 Excessive daytime sleepiness [G47.19] 12/30/2020 Retention of urine [R33.9] 11/11/2023 HTN (hypertension) [I10] 01/23/2024 HLD (hyperlipidemia) [E78.5] 01/23/2024 Acquired hypothyroidism [E03.9] 01/23/2024 Depression [F32.A] 01/23/2024 ELLEN on CPAP [G47.33] 01/23/2024 Encounter Status:Closed by GABBIE NUNES on 01/25/24 [facility] HISTORY PHYSICALon HISTORY PHYSICAL HNO ID: [id number] Author: GABBIE NUNES APRN.ADDRESSOGRAPH OPERATOR Service: ? Author Type: Nurse Practitioner Type: H&P Filed: 01/27/2024 07:11 Note Text: HISTORY AND PHYSICAL EXAMINATION SERVICE DATE: 01/23/2024 SERVICE TIME: 4:17 PM PRIMARY CARE PHYSICIAN: Cathleen Cooney MD, MD Assessment Patient has the following medical conditions which may affect diamante-operative course: HTN (hypertension) Assessment: controlled with meds HLD (hyperlipidemia) Assessment: controlled with meds Awaiting labs to be faxed Acquired hypothyroidism Assessment: controlled with synthroid Await labs to be faxed from dr Khan office Depression Assessment: controlled with meds ELLEN on CPAP Assessment: ELLEN uses CPAP 2 of past 7 nights Retention of urine Assessment: self straight caths 6-7 times per day Patel Activity Status Index: METS: Do yardwork, such as raking leaves, weeding, or pushing a power mower (4.50 METs) DASI Score: 4.5 (Walks unassisted at home, ROM exercise Works in yard, riding mower Had 118 sessions in past, does PT exercises) Patient denies any chest pain or undue shortness of breath with the above physical activity. Clinical Frailty Scale: 2. Well STOP-Bang Score: STOP-Bang Score: (ELLEN uses CPAP some nights) ANESTHESIA FINDINGS: Intubation History: No history of difficult intubation Significant Anesthesia Considerations: none Airway History: No history of difficult airway I - PHYSICAL EVALUATION AIRWAY Patient intubated: No. Tracheostomy tube not present Mallampati: III. TM distance: >3 FB. Neck ROM: full ROM without neurological symptoms. Mouth opening: adequate. Short neck: yes. Thick neck: yes Mckenna present: no Lip Bite Test: III DENTAL Dental findings: teeth intact. II - ANESTHESIA PLAN Anesthetic Plan: other Anesthetic plan additional comments: Anesthesia choice. Beta Hattie Monitoring Plan Post Procedure Analgesic Plan Prepared for Surgery: optimally prepared for surgery, pending [see comment]. Called Dr Khan [facility] Left detailed message with MA to fax results. Noted Dr Newman UA order in [facility], pt states he had this done in dr newman office and was negative. 01/27/24 0702: Labs reviewed, OK to proceed CONSULTS: Patient does not require consults for optimization at this time Planned Anesthetic: other anesthesia choice The Following Tests/Procedures Have Been Initiated: Orders Placed This Encounter lisinopril (ZESTRIL) 10 mg tablet Sig: Take 10 mg by mouth once daily. GABAPENTIN, BULK, MISC Si mg BID pantoprazole DR (PROTONIX) 40 mg tablet Sig: Take 40 mg by mouth two times a day. trospium (SANCTURA) 20 mg tablet Sig: Take 20 mg by mouth daily at bedtime. multivitamin tablet Sig: Take 1 tablet by mouth once daily. This is a virtual visit using [employer] video visit (Pt with difficulty connecting, called help desk, logged in 20 minutes late, poor historian with meds, had to end visit to see next pt, reconnect via amwell, since pt left zoom my chart visit). It required patient-provider interaction for the medical decision making as documented below. REASON FOR VISIT: Sarmad Almeida is a 73 year old male who is scheduled for Procedure(s): IMPLANT STIMULATOR LEAD(S) BLADDER INCISIONAL APPROACH (N/A) at the request of Dr. Alex Newman for consultation. My final recommendation will be communicated back to the requesting physician by way of shared medical record or letter. Subjective The patient has the following: ACTIVE PROBLEM LIST Add (Attention Deficit Hyperactivity Disorder, Inattentive Type) Snoring Excessive Daytime Sleepiness Retention of Urine Htn (Hypertension) Hld (Hyperlipidemia) Acquired Hypothyroidism Depression Ellen On Cpap COVID-19 Immunization Status Overdue - Covid-19 Vaccine ( season) Overdue since 04/15/2023 09/21/2021 Imm Admin: COVID-19 original vaccine, full dose, monovalent (MODERNA) 11/21/2020 Imm Admin: COVID-19 original vaccine, age 12+ yr, monovalent ([employer] - PURPLE TOP) 10/09/2020 Imm Admin: COVID-19 original vaccine, full dose, monovalent (MODERNA) Only the first 3 history entries have been loaded, but more history exists. CHIEF COMPLAINT: pre-op HPI: 73 year old male with history of urinary incontinence, now to have above procedure. Pt states had multiple back surgeries. 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 Sitting in wheelchair for virtual PACC. Pt states he can walk unassisted at home. He straight caths 6-7 times per day He denies abdominal pain, nausea, vomiting, fevers or chills. He states urinates sometimes small amounts, no new symptoms. This is a virtual visit. The visit was conducted using [employer] video visit (Pt with difficulty connecting, called help desk, logged in 20 minutes late, ramsey historian with meds, had to end visit to see next pt, (more content not included)... [facility] SARMAD [facility] ([id number]) 1950 M Date Time Provider Department 12/02/23 ALEX NEWMAN GLRoss During your visit today, we recorded the following information about you: Orly De Oliveira 12/02/2023 10:37 AM Signed Message left for patient to call back regarding date for surgery. Thanks Offering February 08 at [facility]. Stage 1 SNM Allergies As of Date: 12/02/2023 Noted Allergy Reaction AMOXACILLIN (AMOXICILLIN) 04/13/2016 16 - Unknown AUGMENTIN (AMOXICILLIN-POT CLAVUL*04/13/2016 14 - Other: See Comments Comments: Nausea Date Reviewed: 11/29/2023 Reviewed by: Lilliana Jacobson RN - Fully Assessed Reason for Visit: Schedule Surgery [1330] Prescriptions as of 12/08/2023 - CPAP/BIPAP/OTHER autopap [id number] [employer] - senna (SENOKOT) 8.6 mg tab Take 8.6 mg by mouth. - glimepiride (AMARYL) 2 mg tablet Take 2 mg by mouth as directed. - allopurinol (ZYLOPRIM) 300 mg tablet Take 300 mg by mouth. - atorvastatin (LIPITOR) 20 mg tablet Take 20 mg by mouth. - metFORMIN (GLUCOPHAGE) 1,000 mg tablet Take 1,000 mg by mouth once daily. - SITagliptin (JANUVIA) 100 mg tablet Take 100 mg by mouth once daily. - losartan (COZAAR) 50 mg tablet Take 50 mg by mouth once daily. - levothyroxine (SYNTHROID) 88 mcg tablet Take 88 mcg by mouth once daily. - amLODIPine-benazepril (LOTREL) 5-10 mg per capsule Take 1 capsule by mouth once daily. - buPROPion XL (WELLBUTRIN XL) 150 mg 24 hr tablet Take 150 mg by mouth. - venlafaxine ER (EFFEXOR XR) 75 mg 24 hr capsule Take 75 mg by mouth once daily. - venlafaxine ER (EFFEXOR XR) 150 mg 24 hr capsule Take 150 mg by mouth. - Tadalafil 5 mg tablet Take 5 mg by mouth as needed. 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 Problem List As Of Date 12/02/2023 Noted Resolved ADD (attention deficit hyperactivity disorder, *12/07/2016 Snoring [R06.83] 12/30/2020 Excessive daytime sleepiness [G47.19] 12/30/2020 Retention of urine [R33.9] 11/11/2023 Encounter Status:Closed by ORLY DE OLIVEIRA [facility] Nurse Visit (UROSMN) -- SARMAD ALMEIDA ([id number]) 1950 M Date Time Provider Department 11/29/23 1:00 PM URODYNAMICS UROSMN During your visit today, we recorded the following information about you: Lilliana Jacobson RN 11/29/2023 2:41 PM Signed [facility] URODYNAMICS LAB URODYNAMIC PROCEDURE NOTE ID Verified by: Lilliana Jacobson RN with name and birthdate. Procedure instructions reviewed with patient prior to procedure: Yes Currently experiencing pain: No 0 on a scale of 0 to 10 on a scale of 0-10. Does the patient have any concerns about safety in the home/falls?: At risk due to: unsteady gait and use of other ambulatory device cane, and paraplegic . Has the patient had 2 falls in the last year or 1 fall with injury or currently using assistive device (walker, cane, wheelchair, crutches): Yes, patient high risk for falls, provider notified. What interventions were put in place to prevent falls during this visit: Instructed patient to remain seated Increased observations by caregivers Offered assistance with transfers/clothing Has patient had any history of Mitral Valve prolapse: No MEDS:NONE Has patient had any history of prosthetics: No MEDS: NONE Latex allergy: No Iodine allergy: No Tent Finisher offered:Patient declines B/O UA: YES Negative for leukocytes and positive for nitrates. Pt does ISC 5-6x/day. UROFLOWMETRY Unable to perform. Pt cathed for 100 ml. CYSTOMETROGRAM Subtracted:Yes Video: No EMG: Yes First Sensation: 69 ml Strong desire: N/A Max. capacity: 122 ml Maximum filling detrusor pressure 5 cm of water Detrusor overactivity associated with urge: Yes Detrusor overactivity associated with leakage: No Was patient assessed for VLPP / UPP No Leaks urine with valsalva /coughs: No Lowest Leak point pressure: N/A PRESSURE-FLOW VOIDING STUDY Did patient void with catheters in place Yes Voided: 9 ml voluntary Max Voiding Detrusor Pressure 75 cm H2O P det @ Q max (Max Flow): 67 cm H2O Maximum Flow Rate: 2 ml/sec Average Flow Rate: 1 ml/sec Fluro time: N/A Comments: Pt filled to capacity. Pt had urge with rise in PDET with no leaks produced x4. Pt had sustained increased pressure and given permission to void. Pt had voluntary void of 9 ml. Pt cathed for 150 ml. STUDY DETAILS: Was a uroflow done at some point during the study: No Was a cystometrogram performed: Yes Was a UPP/VLPP done: No Was an EMG done: Yes Was an intraabdominal pressure recorded with urethral catheter in: Yes Where were pressure catheters placed: Bladder and Rectum Was contrast instilled for radiologic evaluation: No Please use Urodynamic Graph. Pt given verbal home going instructions. Pt states an understanding of instructions given. Alex Newman MD 11/29/2023 4:01 PM Signed ngb retention interested in interstim trial no uroflow - could not void. cathed for 100 cc. DO at 90 cc and throughout. permission to void during DO and just a few ccs out. EMG no sign of dsd cap 122 DO and inability to void Alex Newman MD Referring Provider: ALEX NEWMAN [[id number]] Allergies As of Date: 11/29/2023 Noted Allergy Reaction AMOXACILLIN (AMOXICILLIN) 04/13/2016 16 - Unknown AUGMENTIN (AMOXICILLIN-POT CLAVUL*04/13/2016 14 - Other: See Comments Comments: Nausea Date Reviewed: 11/29/2023 Reviewed by: Lilliana Jacobson RN - Fully Assessed Primary Visit Diagnosis:Retention of urine [R33.9] Other Visit Diagnosis:Urinary urgency [R39.15] Prescriptions as of 11/29/2023 - CPAP/BIPAP/OTHER autopap [id number] [employer] - senna (SENOKOT) 8.6 mg tab Take 8.6 mg by mouth. - glimepiride (AMARYL) 2 mg tablet Take 2 mg by mouth as directed. - allopurinol (ZYLOPRIM) 300 mg tablet Take 300 mg by mouth. - atorvastatin (LIPITOR) 20 mg tablet Take 20 mg by mouth. - metFORMIN (GLUCOPHAGE) 1,000 mg tablet Take 1,000 mg by mouth once daily. - SITagliptin (JANUVIA) 100 mg tablet Take 100 mg by mouth once daily. - losartan (COZAAR) 50 mg tablet Take 50 mg by mouth once daily. - levothyroxine (SYNTHROID) 88 mcg tablet Take 88 mcg by mouth once daily. - amLODIPine-benazepril (LOTREL) 5-10 mg per capsule Take 1 capsule by mouth once daily. - buPROPion XL (WELLBUTRIN XL) 150 mg 24 hr tablet Take 150 mg by mouth. - venlafaxine ER (EFFEXOR XR) 75 mg 24 hr capsule Take 75 mg by mouth once daily. - venlafaxine ER (EFFEXOR XR) 150 mg 24 hr capsule Take 150 mg by mouth. - Tadalafil 5 mg tablet Take 5 mg by mouth as needed. 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 Problem List As Of Date 11/29/2023 Noted Resolved ADD (attention deficit hyperactivity disorder, *12/07/2016 Snoring [R06.83] 12/30/2020 Excessive daytime sleep (more content not included)... Normal [facility] CNOVon 11-29-2023 CNOV Office Visit (UROLMN ) -- SARMAD ALMEIDA ([id number]) 1950 M Date Time Provider Department 11/29/23 2:00 PM AELX NEWMAN UROLMN During your visit today, we recorded the following information about you: Alex Newman MD 11/30/2023 2:47 PM Signed Status post spinal issue. no voiding since. prior to that voided fine no recent cysto. does get urgency cic about 6x/d UDS today - DO but unable to really void. given permission to void during DO and had minimal flow PE - prostate 1+ and smooth DU and DO. - long discussion. interested in snm. would do staged. will schedule stage 1 Alex Newman MD Allergies As of Date: 11/29/2023 Noted Allergy Reaction AMOXACILLIN (AMOXICILLIN) 04/13/2016 16 - Unknown AUGMENTIN (AMOXICILLIN-POT CLAVUL*04/13/2016 14 - Other: See Comments Comments: Nausea Date Reviewed: 11/29/2023 Reviewed by: Lilliana Jacobson, RN - Fully Assessed Primary Visit Diagnosis:Urinary retention [R33.9] Prescriptions as of 11/30/2023 - CPAP/BIPAP/OTHER autopap [id number] [employer] [place] - senna (SENOKOT) 8.6 mg tab Take 8.6 mg by mouth. - glimepiride (AMARYL) 2 mg tablet Take 2 mg by mouth as directed. - allopurinol (ZYLOPRIM) 300 mg tablet Take 300 mg by mouth. - atorvastatin (LIPITOR) 20 mg tablet Take 20 mg by mouth. - metFORMIN (GLUCOPHAGE) 1,000 mg tablet Take 1,000 mg by mouth once daily. - SITagliptin (JANUVIA) 100 mg tablet Take 100 mg by mouth once daily. - losartan (COZAAR) 50 mg tablet Take 50 mg by mouth once daily. - levothyroxine (SYNTHROID) 88 mcg tablet Take 88 mcg by mouth once daily. - amLODIPine-benazepril (LOTREL) 5-10 mg per capsule Take 1 capsule by mouth once daily. - buPROPion XL (WELLBUTRIN XL) 150 mg 24 hr tablet Take 150 mg by mouth. - venlafaxine ER (EFFEXOR XR) 75 mg 24 hr capsule Take 75 mg by mouth once daily. - venlafaxine ER (EFFEXOR XR) 150 mg 24 hr capsule Take 150 mg by mouth. - Tadalafil 5 mg tablet Take 5 mg by mouth as needed. 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 Problem List As Of Date 11/29/2023 Noted Resolved ADD (attention deficit hyperactivity disorder, *12/07/2016 Snoring [R06.83] 12/30/2020 Excessive daytime sleepiness [G47.19] 12/30/2020 Retention of urine [R33.9] 11/11/2023 Encounter Status:Closed by ALEX NEWMAN on 11/30/23 Normal [facility] Consultation Noteon 10-12-19 Consultation Note [id number] Normal [facility] ALL CBC WITH AUTO DIFFon BASOPHILS ABSOLUTE AUTO 0.0 [facility] Basophils/100 WBC (Bld) 0.3 % 0.2 - 2.0 % [facility] Eosinophils/100 WBC (Bld) 3.7 % 0.9 - 7.0 % [facility] Erythrocyte distribution width (RBC) [Ratio] 14.6 % 11.0 - 15.0 % [facility] Hematocrit (Bld) [Volume fraction] 41.7 % Low 42.0 - 54.0 % [facility] Hemoglobin (Bld) [Mass/Vol] 13.6 g/dL Low 14.0 - 18.0 g/dL [facility] IMMATURE GRANULOCYTES ABS AUTO 0.01 [facility] Immature granulocytes/100 WBC (Bld) 0.2 % 0.0 - 0.5 % [facility] Interpretation and review of laboratory results Abnormal [facility] LYMPHOCYTES ABSOLUTE AUTO 1.8 [facility] Lymphocytes/100 WBC (Bld) 30.6 % 20.5 - 60.0 % [facility] MCH (RBC) [Entitic mass] 31.9 pg 25.9 - 34.[address] [facility] MCHC (RBC) [Mass/Vol] 32.6 g/dL 29.9 - 35.2 g/dL [facility] MCV (RBC) [Entitic vol] 97.7 fL High 80.0 - 94.[address] [facility] MONOCYTES ABSOLUTE AUTO 0.4 [facility] Monocytes/100 WBC (Bld) 7.4 % 1.7 - 12.0 % [facility] NEUTROPHILS ABSOLUTE AUTO 3.5 [facility] Neutrophils/100 WBC (Bld) 57.8 % 43.0 - 75.0 % [facility] Platelet mean volume (Bld) [Entitic vol] 9.9 fL 9.5 - 13.[address] [facility] EO # 0.2 [facility] PLT 165 [facility] RBC 4.[address] [facility] TB WBC 6.0 [facility] CLINISYNC [facility] CNOVon 09-21-2023 CNOV Office Visit (URFMOB ) -- SARMAD ALMEIDA ([id number]) 1950 M Date Time Provider Department 09/21/23 2:00 PM YARY FERNANDO URFMOB During your visit today, we recorded the following information about you: Pulse Blood pressure 93/minute 172/103 Yary Fernando MD 09/21/2023 5:13 PM Signed [facility] UROLOGY NEW PATIENT CLINIC NOTE SERVICE DATE: 09/21/2023 NAME: Sarmad Almeida REFERRED BY: Dina Ortiz [address] [facility] [address] [facility] [id number] Ortiz for an opinion regarding neurogenic bladder. My final recommendations will be communicated back to the requesting physician by way of shared Medical record or letter to requesting physician via US mail. CHIEF COMPLAINT Bladder stimulator HISTORY OF PRESENT ILLNESS Mr. 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, GI bleeding 2/2 duodenal ulcer, cirrhosis, anemia, ELLEN, DM2, depression who presents for evaluation for neurogenic He he here to discuss interstim for neurogenic bladder Had epidural abscess complicated by temporary paraplegia 3 month hospital course - Gi bleed, hematuria w clot evac Many months of PT Is now ambulating w rare use of cane Remains on CIC for urinary retention Prior to injury voided without issues Last cysto was in the hospital with clot evac Had UDS but no records of this Has had 3 spinal fusions thoracic and lumbar and ?sacral Caths 4-5 times/24h Average volume 6-8 oz Rare leakage with urge w full bladder Diabetic - estimates A1c is around 7.3 but no recent labs Bowels - does have some urgency with occasional fecal incontinence Had decubs during hospital stay but none now Prior ex lap for colon perf PAST MEDICAL HISTORY No past medical history on file. PAST SURGICAL HISTORY No past surgical history on file. FAMILY HISTORY FAMILY HISTORY Problem Relation Age of Onset Kidney Disease Mother Heart disease Father Heart disease Brother SOCIAL HISTORY Social History Tobacco Use Smoking status: Never Smokeless tobacco: Never MEDICATIONS Current Outpatient Medications Medication Sig CPAP/BIPAP/OTHER autopap [id number] [facility] (SENOKOT) 8.6 mg tab Take 8.6 mg by mouth. glimepiride (AMARYL) 2 mg tablet Take 2 mg by mouth as directed. allopurinol (ZYLOPRIM) 300 mg tablet Take 300 mg by mouth. atorvastatin (LIPITOR) 20 mg tablet Take 20 mg by mouth. metFORMIN (GLUCOPHAGE) 1,000 mg tablet Take 1,000 mg by mouth once daily. SITagliptin (JANUVIA) 100 mg tablet Take 100 mg by mouth once daily. losartan (COZAAR) 50 mg tablet Take 50 mg by mouth once daily. levothyroxine (SYNTHROID) 88 mcg tablet Take 88 mcg by mouth once daily. amLODIPine-benazepril (LOTREL) 5-10 mg per capsule Take 1 capsule by mouth once daily. buPROPion XL (WELLBUTRIN XL) 150 mg 24 hr tablet Take 150 mg by mouth. venlafaxine ER (EFFEXOR XR) 75 mg 24 hr capsule Take 75 mg by mouth once daily. venlafaxine ER (EFFEXOR XR) 150 mg 24 hr capsule Take 150 mg by mouth. Tadalafil 5 mg tablet Take 5 mg by mouth as needed. No current facility-administered medications for this visit. CURRENT ALLERGIES Allergies As of Date: 09/21/2023 Allergen Noted Reaction AMOXACILLIN [AMOXICILLIN] 04/13/2016 Unknown AUGMENTIN [AMOXICILLIN-POT CLAVUL*04/13/2016 Other: See Comments Fully Assessed 09/21/2023 COMPLETE REVIEW OF SYSTEMS REVIEW OF SYSTEMS See hpi OBJECTIVE PHYSICAL EXAM: the patient was offered a cardiothoracic surgeon and declined 09/21/23 1452 BP: 172/103 Pulse: 93 There is no height or weight on file to calculate BMI. 09/21/23 1452 BP: 172/103 Pulse: 93 General: pleasant Psych: euthymic, NAD Neuro: AANDOx3. CV: normal perfusion, hemodynamically stable Resp: normal effort Abdomen: soft, NT, well healed midline incision and reducible ventral hernia Circ phallus, testes down, no lesions Three areas of spinal fusion - thoracic 2-4, lumbar t12-L1, ?sacral DATA Labs No results found for: WBC , HB , HCT , PLT , NA , K , CHLOR , CO2 , BUN , CREAT ASSESSMENT/PLAN 72 M w incomplete paraplegia following epidural abscess and three spinal fusions (lumbar, upper thoracic, ?sacral) with NGB on CIC, fecal incontinence He is interested in interstim I will refer him to one of my colleagues Will need UDS and spine imaging records Yary Fernando MD Associate Staff [facility] Department of Urology I spent a total of 25 minutes on the date of the service which included preparing to see the patient, [id number] patient care, completing clinical documentation, obtaining and/or reviewing separately obtained history, performing a medically appropriate examination, counseling and educating the p (more content not included)... Normal [facility] MRI SPINE LUMBAR WITH AND WI THOUT CONTRASTon 09-21-2023 MRI SPINE LUMBAR WITH AND WITHOUT CONTRAST EXAM: MRI SPINE THORACIC WITH AND WITHOUT CONTRAST, MRI SPINE LUMBAR WITH AND WITHOUT CONTRAST, 09/19/2023 15:12 PM (accession [id number]), 09/19/2023 15:11 PM (accession [id number]) COMPARISON: MRI of the thoracic and lumbar spine on September 10, 2021. CLINICAL INDICATIONS: 72 years Male s/p ?s/p L1-L2 fusion?(2019) and T1-T4 laminectomy for evacuation of epidural abscess with Dr. Finley on 08/02/2021.; RELEVANT CLINICAL HISTORY: Z98.1:S/P lumbar fusion (accession [id number]), Z98.890:S/P laminectomy (accession [id number]) TECHNIQUE: A series of sagittal and axial multisequence images of the thoracic and lumbar spine were obtained both before and after intravenous administration of gadolinium-based contrast using standard protocol. Study was performed at 1.5 Preeti. CONTRAST: gadoterate Meglumine (DOTAREM) 5 MMOL/10ML injection 3-60 mL; Route of Administration: Intravenous; Dose: 17 mL. FINDINGS: THORACIC SPINE: Sequelae of previous discitis/osteomyelitis at T1-T3 is again noted with previous decompressive laminectomy at T1-T4. There is resolution of the heterogeneous edema and enhancement at these levels with mild progressive height loss at T3 compatible with sequelae of the previous discitis/osteomyelitis. This indents the ventral thecal sac. No significant central spinal canal narrowing status post posterior decompression. There is focal increased signal abnormality within the ventral cord at this level which may be due to anterior adhesions. Mild focal kyphosis related to the presence of height loss at T2-3. Alignment is otherwise unremarkable. The vertebral body heights are otherwise preserved. Small central disc protrusion at T5-6 and T7-8, small left central disc protrusion at T11-12. No significant central spinal canal narrowing. Cord is otherwise normal in signal and caliber. There is no abnormal intradural enhancement. No findings of discitis/os myelitis throughout the remainder of the thoracic spine. No significant thoracic canal stenosis or cord compression. No abnormal intradural enhancement. Postoperative scarring in the posterior paraspinal soft tissues. Resolution of the significant phlegmon noted on previous MRI. LUMBAR SPINE: Postoperative changes are noted from posterior fixation at L1-2 with laminectomy. The fixation construct is stable in appearance from previous exam. There is distortion of the cauda equina nerve roots at this level concerning for sequela of previous arachnoiditis. Postoperative changes are also noted from left-sided fixation at L5-S1 with evidence of laminectomy and discectomy. There is fusion across the disc space. No new or progressive vertebral body height loss. Mild anterolisthesis of L5 on S1 with complete bony fusion. The conus terminates normally at L1-2. No abnormal intradural enhancement. There is mild increased disc bulge with ligamentum flavum thickening and facet arthropathy at L2-3 with moderate spinal canal narrowing. IMPRESSION: Sequela of discitis/osteomyelitis at the T1-T3 levels with mild progressive vertebral body height loss. No underlying marrow edema or enhancement to suggest residual disease. No abnormal epidural collection. Small amount of cord signal abnormality at this level compatible with chronic cord injury. Postsurgical changes are noted at L1-2 and L5-S1, stable from previous exam. There is mild increase in the degenerative changes at the L2-3 level with moderate spinal canal narrowing. The lumbar spine is otherwise unchanged. Normal [facility] MRI SPINE THORACIC WITH AND WITHOUT CONTRASTon 09-21-2023 MRI SPINE THORACIC WITH AND WITHOUT CONTRAST EXAM: MRI SPINE THORACIC WITH AND WITHOUT CONTRAST, MRI SPINE LUMBAR WITH AND WITHOUT CONTRAST, 09/19/2023 15:12 PM (accession [id number]), 09/19/2023 15:11 PM (accession [id number]) COMPARISON: MRI of the thoracic and lumbar spine on September 10, 2021. CLINICAL INDICATIONS: 72 years Male s/p ?s/p L1-L2 fusion?(2019) and T1-T4 laminectomy for evacuation of epidural abscess with Dr. Finley on 08/02/2021.; RELEVANT CLINICAL HISTORY: Z98.1:S/P lumbar fusion (accession [id number]), Z98.890:S/P laminectomy (accession [id number]) TECHNIQUE: A series of sagittal and axial multisequence images of the thoracic and lumbar spine were obtained both before and after intravenous administration of gadolinium-based contrast using standard protocol. Study was performed at 1.5 Preeti. CONTRAST: gadoterate Meglumine (DOTAREM) 5 MMOL/10ML injection 3-60 mL; Route of Administration: Intravenous; Dose: 17 mL. FINDINGS: THORACIC SPINE: Sequelae of previous discitis/osteomyelitis at T1-T3 is again noted with previous decompressive laminectomy at T1-T4. There is resolution of the heterogeneous edema and enhancement at these levels with mild progressive height loss at T3 compatible with sequelae of the previous discitis/osteomyelitis. This indents the ventral thecal sac. No significant central spinal canal narrowing status post posterior decompression. There is focal increased signal abnormality within the ventral cord at this level which may be due to anterior adhesions. Mild focal kyphosis related to the presence of height loss at T2-3. Alignment is otherwise unremarkable. The vertebral body heights are otherwise preserved. Small central disc protrusion at T5-6 and T7-8, small left central disc protrusion at T11-12. No significant central spinal canal narrowing. Cord is otherwise normal in signal and caliber. There is no abnormal intradural enhancement. No findings of discitis/os myelitis throughout the remainder of the thoracic spine. No significant thoracic canal stenosis or cord compression. No abnormal intradural enhancement. Postoperative scarring in the posterior paraspinal soft tissues. Resolution of the significant phlegmon noted on previous MRI. LUMBAR SPINE: Postoperative changes are noted from posterior fixation at L1-2 with laminectomy. The fixation construct is stable in appearance from previous exam. There is distortion of the cauda equina nerve roots at this level concerning for sequela of previous arachnoiditis. Postoperative changes are also noted from left-sided fixation at L5-S1 with evidence of laminectomy and discectomy. There is fusion across the disc space. No new or progressive vertebral body height loss. Mild anterolisthesis of L5 on S1 with complete bony fusion. The conus terminates normally at L1-2. No abnormal intradural enhancement. There is mild increased disc bulge with ligamentum flavum thickening and facet arthropathy at L2-3 with moderate spinal canal narrowing. IMPRESSION: Sequela of discitis/osteomyelitis at the T1-T3 levels with mild progressive vertebral body height loss. No underlying marrow edema or enhancement to suggest residual disease. No abnormal epidural collection. Small amount of cord signal abnormality at this level compatible with chronic cord injury. Postsurgical changes are noted at L1-2 and L5-S1, stable from previous exam. There is mild increase in the degenerative changes at the L2-3 level with moderate spinal canal narrowing. The lumbar spine is otherwise unchanged. Normal [facility] CBC AUTO DIFFon 09-22-2022 BASO # 0.0 103/ul Normal 0.0-0.1 [facility] Comment on above: Performed By: #### C BC #### [facility] [address] [place] [address] Dr. Kisha Real Basophils/100 WBC (Bld) 0.1 % Critically low 0.2-2.0 [facility] Comment on above: Performed By: #### C BC #### [facility] [address] [place] [address] Dr. Kisha Real EO # 0.4 103/ul Normal 0.0-0.7 [facility] Comment on above: Performed By: #### C BC #### [facility] [address] [place] [address] Dr. Kisha Real Eosinophils/100 WBC (Bld) 4.7 % Normal 0.9-7.0 [facility] Comment on above: Performed By: #### C BC #### [facility] [address] [place] [address] Dr. Kisha Real Erythrocyte distribution width (RBC) [Ratio] 17.7 % Critically high 11.0-15.0 [facility] Comment on above: Performed By: #### C BC #### [facility] [address] [place] [address] Dr. Kisha Real Hematocrit (Bld) [Volume fraction] 26.8 % Critically low 42.0-54.0 [facility] Comment on above: Performed By: #### C BC #### [facility] [address] [place] [address] Dr. Kisha Real Hemoglobin (Bld) [Mass/Vol] 7.8 g/dL Critically low 14.0-18.0 [facility] Comment on above: Performed By: #### C BC #### [facility] [address] [place] [address] Dr. Kisha Real IG # 0.03 10e3/ul Normal 0.00-0.03 [facility] Comment on above: Performed By: #### C BC #### [facility] [address] [place] [address] Dr. Kisha Real IG % 0.4 % Normal 0.0-0.5 [facility] Comment on above: Performed By: #### C BC #### [facility] [address] [place] [address] Dr. Kisha Real LYMPH # 2.2 103/ul Normal 1.2-3.8 [facility] Comment on above: Performed By: #### C BC #### [facility] [address] [place] [address] Dr. Kisha Real Lymphocytes/100 WBC (Bld) 29.1 % Normal 20.5-60.0 [facility] Comment on above: Performed By: #### C BC #### [facility] [address] [place] [address] Dr. Kisha Real MANUAL DIFF REQ NO Normal [facility] Comment on above: Performed By: #### C BC #### [facility] [address] [place] [address] Dr. Kisha Real MCH (RBC) [Entitic mass] 24.0 pg Critically low 25.9-34.0 [facility] Comment on above: Performed By: #### C BC #### [facility] [address] [place] [address] Dr. Kisha Real MCHC (RBC) [Mass/Vol] 29.1 g/dL Critically low 29.9-35.2 [facility] Comment on above: Performed By: #### C BC #### [facility] [address] [place] [address] Dr. Kisha Real MCV (RBC) [Entitic vol] 82.5 fL Normal 80.0-94.0 [facility] Comment on above: Performed By: #### C BC #### [facility] [address] [place] [address] Dr. Kisha Real MONO # 0.7 103/ul Normal 0.3-0.8 [facility] Comment on above: Performed By: #### C BC #### [facility] [address] [place] [address] Dr. Kisha Real Monocytes/100 WBC (Bld) 9.2 % Normal 1.7-12.0 [facility] Comment on above: Performed By: #### C BC #### [facility] [address] [place] [address] Dr. Kisha Real NEUT # 4.3 103/ul Normal 1.4-6.5 [facility] Comment on above: Performed By: #### C BC #### [facility] [address] [place] [address] Dr. Kisha Real Neutrophils/100 WBC (Bld) 56.5 % Normal 43.0-75.0 [facility] Comment on above: Performed By: #### C BC #### [facility] [address] [place] [address] Dr. Kisha Real Platelet mean volume (Bld) [Entitic vol] 9.6 fL Normal 9.5-13.5 [facility] Comment on above: Performed By: #### C BC #### [facility] [address] [place] [address] Dr. Kisha Real PLT 186 103/ul Normal 150-450 [facility] Comment on above: Performed By: #### C BC #### [facility] [address] [place] [address] Dr. Kisha Real RBC 3.25 106/ul Critically low 4.70-6.10 [facility] Comment on above: Performed By: #### C BC #### [facility] [address] [place] [address] Dr. Kisha Real WBC 7.6 103/ul Normal 4.0-11.0 [facility] Comment on above: Performed By: #### C BC #### [facility] [address] [place] [address] Dr. Kisha Real HEMOGLOBIN AND HEMATOCRITon 09-22-2022 Hematocrit (Bld) [Volume fraction] 25.0 % Critically low 42.0-54.0 [facility] Comment on above: Performed By: #### A 1C #### [facility] [address] [place] [address] Dr. Kisha Real Hemoglobin (Bld) [Mass/Vol] 7.4 g/dL Critically low 14.0-18.0 [facility] Comment on above: Performed By: #### A 1C #### [facility] [address] [place] [address] Dr. Kisha Real Hematocrit (Bld) [Volume fraction] 25.2 % Critically low 42.0-54.0 [facility] Comment on above: Performed By: #### P OCGLUC #### [facility] [address] [place] [address] Dr. Kisha Real Hemoglobin (Bld) [Mass/Vol] 7.3 g/dL Critically low 14.0-18.0 [facility] Comment on above: Performed By: #### P OCGLUC #### [facility] [address] [place] [address] Dr. Kisha Real Hematocrit (Bld) [Volume fraction] 26.5 % Critically low 42.0-54.0 [facility] Comment on above: Performed By: #### P OCGLUC #### [facility] [address] [place] [address] Dr. Kisha Real Hemoglobin (Bld) [Mass/Vol] 7.7 g/dL Critically low 14.0-18.0 [facility] Comment on above: Performed By: #### P OCGLUC #### [facility] [address] [place] [address] Dr. Kisha Real POINT OF CARE GLUCOSEon Glucose [Mass/Vol] 216 mg/dL Critically high 74-106 [facility] Comment on above: Performed By: #### P OCGLUC #### [facility] [address] [place] [address] Dr. Kisha Real Glucose [Mass/Vol] 117 mg/dL Critically high 74-106 [facility] Comment on above: Performed By: #### P TT, PT #### [facility] [address] [place] [address] Dr. Kisha Real PROF CHEM 8 (BAS METB)on Anion gap [Moles/Vol] 12.3 mmol/L Normal [facility] Comment on above: Performed By: #### P OCGLUC #### [facility] [address] [address] [address] Kisha Real Calcium [Mass/Vol] 8.7 mg/dL Normal 8.5-10.1 [facility] Comment on above: Performed By: #### P OCGLUC #### [facility] [address] [address] [address] Kisha Real Chloride [Moles/Vol] 105 mmol/L Normal 98-107 [facility] Comment on above: Performed By: #### P OCGLUC #### [facility] [address] [address] [address] Kisha Real CO2 [Moles/Vol] 25.7 mmol/L Normal 21.0-32.0 [facility] Comment on above: Performed By: #### P OCGLUC #### [facility] [address] [address] [address] Kisha Real Creatinine [Mass/Vol] 1.02 mg/dL Normal 0.70-1.30 [facility] Comment on above: Performed By: #### P OCGLUC #### [facility] [address] [address] [address] Kisha Real EGFR-AF CITIZEN OF [place] >60 Normal >=60 [facility] Comment on above: Performed By: #### P OCGLUC #### [facility] [address] [address] [address] Kisha Real EGFR-NON AF CITIZEN OF [place] >60 Normal >=60 [facility] Comment on above: Performed By: #### P OCGLUC #### [facility] [address] [address] [address] Kisha Real Glucose [Mass/Vol] 109 mg/dL Critically high 74-106 [facility] Comment on above: Performed By: #### P OCGLUC #### [facility] [address] [address] [address] Kisha Real Potassium [Moles/Vol] 4.0 mmol/L Normal 3.5-5.1 [facility] Comment on above: Performed By: #### P OCGLUC #### [facility] [address] [address] [address] Kisha Real Sodium [Moles/Vol] 139 mmol/L Normal 136-145 [facility] Comment on above: Performed By: #### P OCGLUC #### [facility] [address] [place] [address] Dr. Kisha Real Urea nitrogen [Mass/Vol] 16.0 mg/dL Normal 7.0-18.0 [facility] Comment on above: Performed By: #### P OCGLUC #### [facility] [address] [place] [address] Dr. Kisha Real Urea nitrogen/Creatinine [Mass ratio] 15.7 mg/mg Normal [facility] Comment on above: Performed By: #### P OCGLUC #### [facility] [address] [place] [address] Dr. Kisha Real AMYLASEon 09-21-2022 Amylase [Catalytic activity/Vol] 63 U/L Normal 25-115 [facility] Comment on above: Performed By: #### P OCGLUC #### [facility] [address] [place] [address] Dr. Kisha Real CBC AUTO DIFFon 09-21-2022 BASO # 0.0 103/ul Normal 0.0-0.1 [facility] Comment on above: Performed By: #### P OCGLUC #### [facility] [address] [place] [address] Dr. Kisha Real Basophils/100 WBC (Bld) 0.2 % Normal 0.2-2.0 [facility] Comment on above: Performed By: #### P OCGLUC #### [facility] [address] [place] [address] Dr. Kisha Real EO # 0.3 103/ul Normal 0.0-0.7 [facility] Comment on above: Performed By: #### P OCGLUC #### [facility] [address] [place] [address] Dr. Kisha Real Eosinophils/100 WBC (Bld) 3.1 % Normal 0.9-7.0 [facility] Comment on above: Performed By: #### P OCGLUC #### [facility] [address] [place] [address] Dr. Kisha Real Erythrocyte distribution width (RBC) [Ratio] 17.6 % Critically high 11.0-15.0 [facility] Comment on above: Performed By: #### P OCGLUC #### [facility] [address] [place] [address] Dr. Kisha Real Hematocrit (Bld) [Volume fraction] 34.3 % Critically low 42.0-54.0 [facility] Comment on above: Performed By: #### P OCGLUC #### [facility] [address] [place] [address] Dr. Kisha Real Hemoglobin (Bld) [Mass/Vol] 9.7 g/dL Critically low 14.0-18.0 [facility] Comment on above: Performed By: #### P OCGLUC #### [facility] [address] [place] [address] Dr. Kisha Real IG # 0.03 10e3/ul Normal 0.00-0.03 [facility] Comment on above: Performed By: #### P OCGLUC #### [facility] [address] [place] [address] Dr. Kisha Real IG % 0.3 % Normal 0.0-0.5 [facility] Comment on above: Performed By: #### P OCGLUC #### [facility] [address] [place] [address] Dr. Kisha Real LYMPH # 2.2 103/ul Normal 1.2-3.8 [facility] Comment on above: Performed By: #### P OCGLUC #### [facility] [address] [place] [address] Dr. Kisha Real Lymphocytes/100 WBC (Bld) 22.6 % Normal 20.5-60.0 [facility] Comment on above: Performed By: #### P OCGLUC #### [facility] [address] [place] [address] Dr. Kisha Real MANUAL DIFF REQ NO Normal [facility] Comment on above: Performed By: #### P OCGLUC #### [facility] [address] [address] [address] Kisha Real MCH (RBC) [Entitic mass] 23.7 pg Critically low 25.9-34.0 [facility] Comment on above: Performed By: #### P OCGLUC #### [facility] [address] [place] [address] Dr. Kisha Real MCHC (RBC) [Mass/Vol] 28.3 g/dL Critically low 29.9-35.2 [facility] Comment on above: Performed By: #### P OCGLUC #### [facility] [address] [place] [address] Dr. Kisha Real MCV (RBC) [Entitic vol] 83.9 fL Normal 80.0-94.0 [facility] Comment on above: Performed By: #### P OCGLUC #### [facility] [address] [place] [address] Dr. Kisha Real MONO # 0.7 103/ul Normal 0.3-0.8 [facility] Comment on above: Performed By: #### P OCGLUC #### [facility] [address] [place] [address] Dr. Kisha Real Monocytes/100 WBC (Bld) 7.2 % Normal 1.7-12.0 [facility] Comment on above: Performed By: #### P OCGLUC #### [facility] [address] [place] [address] Dr. Kisha Real NEUT # 6.6 103/ul Critically high 1.4-6.5 [facility] Comment on above: Performed By: #### P OCGLUC #### [facility] [address] [place] [address] Dr. Kisha Real Neutrophils/100 WBC (Bld) 66.6 % Normal 43.0-75.0 [facility] Comment on above: Performed By: #### P OCGLUC #### [facility] [address] [place] [address] Dr. Kisha Real Platelet mean volume (Bld) [Entitic vol] 10.0 fL Normal 9.5-13.5 [facility] Comment on above: Performed By: #### P OCGLUC #### [facility] [address] [place], [place] [address] Dr. Kisha Real PLT 268 103/ul Normal 150-450 [facility] Comment on above: Performed By: #### P OCGLUC #### [facility] [address] [place], [place] [address] Dr. Kisha Real RBC 4.09 106/ul Critically low 4.70-6.10 [facility] Comment on above: Performed By: #### P OCGLUC #### [facility] [address] [place], [place] [address] Dr. Kisha Real WBC 9.9 103/ul Normal 4.0-11.0 [facility] Comment on above: Performed By: #### P OCGLUC #### [facility] [address] [place], [place] [address] ABD/PELV W CONon 09-21-19 CT ABD/PELV W CON EXAMINATION: CT ABD/ PELV W CON, 09/21/2022 7:38 AM EST HISTORY: GENERALIZED ABDOMINAL PAIN COMPARISON: 11/19/2021 TECHNIQUE: CT scan of the abdomen and pelvis was performed with IV contrast. CT dose reduction technique was used, including Automated Exposure Control. FINDINGS: LUNG BASES: No visible pulmonary or pleural disease. LIVER: Nodular liver contour suggesting underlying cirrhosis. Stable coarse calcifications, nonspecific BILIARY: No dilatation or calcification. PANCREAS: No lesion, fluid collection, ductal dilatation, or atrophy. SPLEEN: No enlargement or focal lesion. ADRENALS: No mass or enlargement. KIDNEYS: Bilateral cortical hypodensities the larger lesions are likely simple cyst. No hydronephrosis or obstructing nephrolithiasis BOWEL/MESENTERY: Suture line along the sigmoid colon. Moderate amount of stool throughout the colon. Nonobstructive bowel gas pattern. AORTA/VASCULAR: No aortic aneurysm or dissection. Mild atherosclerosis RETROPERITONEUM: No mass or adenopathy. LYMPH NODES: No adenopathy. URINARY BLADDER: No visible focal wall thickening, lesion, or calculus. PELVIC ORGANS: Enlarged lobular heterogeneous prostate gland measuring 5 cm transversely ABDOMINAL WALL: Multiple ventral hernias the largest along the right para midline measures 6.4 x 2.8 cm through a narrow neck measuring 1.4 cm. Some fluid within the hernias could represent elements of strangulation. There is new marked asymmetric enlargement of the left abdominis rectus muscle with areas of focal hyperdensity consistent with acute arterial hemorrhage. The left rectus abdominis muscle measures up to 4.2 cm thick where the right measures 0.8 cm thick. The central area of hypodensity measures 7 x 2.1 cm likely representing hematoma which extends out into the muscle fibers. Bilateral inguinal hernias containing fat without strangulation BONES: Posterior decompression and bilateral transpedicular fusion L1-L2. Posterior decompression at L5 with left L5-S1 transpedicular fusion. Mild to moderate degenerative changes. 6 mm anterolisthesis of L5 on S1. OTHER: Tiny cyst discussed with Dr. Vasquez by telephone IMPRESSION: Active arterial extravasation and hematoma in the left abdominis rectus muscle Multiple ventral hernias containing fat and fluid, consider an element of strangulation Diffuse cirrhosis Enlarged heterogeneous prostate gland Electronically authenticated by: SANCHEZ MARTIN Date: 2022-09-21 08:48 Normal [facility] Covid-19 PCR (CVDTB)on SARS-CoV-2 (COVID-19) RNA LYNNETTE+probe Ql (Unsp spec) Not detected Normal NOT DETECTED [facility] Comment on above: Result Comment: When diagnostic testing is negative, the possibility of a false negative should be considered in the context of a patient's recent exposures and the presence of clinical signs and symptoms consistent with SARS-CoV-2. This test is not yet approved or cleared by the [place] FDA. When there are no FDA-approved or cleared tests available, and other criteria are met, FDA can make tests available under an emergency access mechanism called an Emergency Use Authorization (EUA). The EUA for this test is supported by the Day Care Aide of Health and Human Service's declaration that circumstances exist to justify the emergency use of in vitro diagnostics for the detection and/or diagnosis of the virus that causes COVID-19. This EUA will remain in effect for the duration of the COVID-19 declaration justifying emergency of IVDs, unless it is terminated or revoked by the FDA (after which the test may no longer be used). Performed By: #### P OCGLUC #### [facility] [address] [place] [address] Dr. Kisha Real GROUP A STREP CULTUREon S. pyogenes Ag Ql (Unsp spec) Culture Observations: NEGATIVE FOR GROUP A STREPTOCOCCUS. Normal [facility] Comment on above: Performed By: #### G RASTCX SSCRN #### [facility] [address] [place] [address] Dr. Kisha Real HEMOGLOBIN AND HEMATOCRITon 09-21-2022 Hematocrit (Bld) [Volume fraction] 27.7 % Critically low 42.0-54.0 [facility] Comment on above: Performed By: #### A 1C #### [facility] [address] [place] [address] Dr. Kisha Real Hemoglobin (Bld) [Mass/Vol] 8.0 g/dL Critically low 14.0-18.0 [facility] Comment on above: Performed By: #### A 1C #### [facility] [address] [place] [address] Dr. Kisha Real Hematocrit (Bld) [Volume fraction] 27.1 % Critically low 42.0-54.0 [facility] Comment on above: Performed By: #### A 1C #### [facility] [address] [place] [address] Dr. Kisha Real Hemoglobin (Bld) [Mass/Vol] 7.9 g/dL Critically low 14.0-18.0 [facility] Comment on above: Performed By: #### A 1C #### [facility] [address] [place] [address] Dr. Kisha Real Hematocrit (Bld) [Volume fraction] 28.4 % Critically low 42.0-54.0 [facility] Comment on above: Performed By: #### H GBHCT #### [facility] [address] [place] [address] Dr. Kisha Real Hemoglobin (Bld) [Mass/Vol] 8.1 g/dL Critically low 14.0-18.0 [facility] Comment on above: Performed By: #### H GBHCT #### [facility] [address] [place] [address] Dr. Kisha Real LACTATE/LACTIC ACIDon 2022 Lactate [Moles/Vol] 3.6 mmol/L Critically high 0.4-1.9 [facility] Comment on above: Performed By: #### P OCGLUC #### [facility] [address] [place] [address] Dr. Kisha Real Lactate [Moles/Vol] 5.0 mmol/L Critically high 0.4-1.9 [facility] Comment on above: Performed By: #### P TT, PT #### [facility] [address] [place] [address] Dr. Kisha Real LIPASEon 09-21-2022 Lipase [Catalytic activity/Vol] 121.0 U/L Normal 73.0-393.0 [facility] Comment on above: Performed By: #### P OCGLUC #### [facility] [address] [place] [address] Dr. Kisha Real POINT OF CARE GLUCOSEon Glucose [Mass/Vol] 144 mg/dL Critically high 74-106 [facility] Comment on above: Performed By: #### P OCGLUC #### [facility] [address] [place] [address] Dr. Kisha Real Glucose [Mass/Vol] 160 mg/dL Critically high 74-106 [facility] Comment on above: Performed By: #### P OCGLUC #### [facility] [address] [place] [address] Dr. Kisha Real Glucose [Mass/Vol] 136 mg/dL Critically high 74-106 [facility] Comment on above: Performed By: #### P OCGLUC #### [facility] [address] [place] [address] Dr. Kisha Real PROF 14(COMP METB)on 023 Albumin [Mass/Vol] 3.7 g/dL Normal 3.4-5.0 [facility] Comment on above: Performed By: #### P OCGLUC #### [facility] [address] [place] [address] Dr. Kisha Real Albumin/Globulin [Mass ratio] 0.9 {ratio} Normal [facility] Comment on above: Performed By: #### P OCGLUC #### [facility] [address] [address] [address] Kisha Real ALP [Catalytic activity/Vol] 88 U/L Normal 46-116 [facility] Comment on above: Performed By: #### P OCGLUC #### [facility] [address] [address] [address] Kisha Real ALT [Catalytic activity/Vol] 19 U/L Normal 16-63 [facility] Comment on above: Performed By: #### P OCGLUC #### [facility] [address] [address] [address] Kisha Real Anion gap [Moles/Vol] 17.3 mmol/L Normal Th e [facility] Comment on above: Performed By: #### P OCGLUC #### [facility] [address] [place] [address] Dr. Kisha Real AST [Catalytic activity/Vol] 19 U/L Normal 15-37 [facility] Comment on above: Performed By: #### P OCGLUC #### [facility] [address] [address] [address] Kisha Real Bilirubin [Mass/Vol] 0.3 mg/dL Normal 0.2-1.0 [facility] Comment on above: Performed By: #### P OCGLUC #### [facility] [address] [place] [address] Dr. Kisha Real Calcium [Mass/Vol] 9.4 mg/dL Normal 8.5-10.1 [facility] Comment on above: Performed By: #### P OCGLUC #### [facility] [address] [address] [address] Kisha Real Chloride [Moles/Vol] 104 mmol/L Normal 98-107 [facility] Comment on above: Performed By: #### P OCGLUC #### [facility] [address] [address] [address] Kisha Real CO2 [Moles/Vol] 24.0 mmol/L Normal 21.0-32.0 [facility] Comment on above: Performed By: #### P OCGLUC #### [facility] [address] [address] [address] Kisha Real Creatinine [Mass/Vol] 1.17 mg/dL Normal 0.70-1.30 [facility] Comment on above: Performed By: #### P OCGLUC #### [facility] [address] [address] [address] Kisha Real EGFR-AF CITIZEN OF THE [place] >60 Normal >=60 [facility] Comment on above: Performed By: #### P OCGLUC #### [facility] [address] [address] [address] Kisha Real EGFR-NON AF CITIZEN OF THE [place] >60 Normal >=60 [facility] Comment on above: Performed By: #### P OCGLUC #### [facility] [address] [address] [address] Kisha Real Globulin (S) [Mass/Vol] 4.2 g/dL Normal [facility] Comment on above: Performed By: #### P OCGLUC #### [facility] [address] [address] [address] Kisha Real Glucose [Mass/Vol] 224 mg/dL Critically high 74-106 [facility] Comment on above: Performed By: #### P OCGLUC #### [facility] [address] [address] [address] Kisha Real Potassium [Moles/Vol] 4.3 mmol/L Normal 3.5-5.1 [facility] Comment on above: Performed By: #### P OCGLUC #### [facility] [address] [address] [address] Kisha Real Protein [Mass/Vol] 7.9 g/dL Normal 6.4-8.2 [facility] Comment on above: Performed By: #### P OCGLUC #### [facility] [address] [address] [address] Kisha Real Sodium [Moles/Vol] 141 mmol/L Normal 136-145 [facility] Comment on above: Performed By: #### P OCGLUC #### [facility] [address] [address] [address] Kisha Real Urea nitrogen [Mass/Vol] 23.0 mg/dL Critically high 7.0-18.0 [facility] Comment on above: Performed By: #### P OCGLUC #### [facility] [address] [place] [address] Dr. Kisha Real Urea nitrogen/Creatinine [Mass ratio] 19.7 mg/mg Normal [facility] Comment on above: Performed By: #### P OCGLUC #### [facility] [address] [place] [address] Dr. Kisha Real PROTIMEon 09-21-2022 INR Coag (PPP) [Relative time] 1.07 {INR} Normal [facility] Comment on above: Performed By: #### P TT, PT #### [facility] [address] [place] [address] Dr. Kisha Real INR GUIDELINES SEE BELOW Normal [facility] Comment on above: Result Comment: ANGELITA RED INR: 2.0 - 3.0 CONDITIONS NOT LISTED BELOW 2.5 - 3.5 FOR PROSTHETIC HEART VALVE REPLACEMENT 2.5 - 3.5 RECURRENT THROMBOSIS Performed By: #### P TT, PT #### [facility] [address] [place] [address] Dr. Kisha Real PT Coag (PPP) [Time] 11.3 s Normal 9.0-11.6 [facility] Comment on above: Performed By: #### P TT, PT #### [facility] [address] [place] [address] Dr. Kisha Real PTTon 09-21-2022 aPTT Coag (Bld) [Time] 29.7 s Normal 22.3-36.2 [facility] Comment on above: Performed By: #### P TT, PT #### [facility] [address] [place] [address] Dr. Kisha Real STREPT SCREENon 09-21-2022 STREP SCREEN A Negative Normal NEGATIVE [facility] Comment on above: Performed By: #### G RASTCX, SSCRN #### [facility] [address] [place] [address] Dr. Kisha Real TROPONIN, HIGH SENSITIVITYon 09-21-2022 HSTROP 10.5 pg/mL Normal 4.0-76.1 [facility] Comment on above: Result Comment: CUT- OFF POINTS HAVE BEEN ESTABLISHED BASED ON THE FOURTH UNIVERSAL DEFINITIONS OF MYOCARDIAL INFARCTION. THE UPPER REFERENCE LIMIT (URL) OF TROPONIN, DEFINED THE 99TH PERCENTILE OF cTnI DISTRIBUTION IN A REFERENCE POPULATION, HAS BEEN CONFIRMED THE DECISION THRESHOLD FOR DE DIAGNOSIS. Performed By: #### A 1C #### [facility] [address] [place] [address] Dr. Kisha Real TYPE AND SCREENon 09-21-2022 TYPE AND SCREEN Negative Normal [facility] Comment on above: Performed By: #### A 1C #### [facility] [address] [place] [address] Dr. Kisha Real XR CHEST 1 Von 09-21-2022 XR CHEST 1 V EXAMINATION: XR CHES T 1 V HISTORY: COUGH , epigastric pain COMPARISON: No relevant comparison available. FINDINGS: LUNGS: No significant pulmonary parenchymal abnormalities. VASCULATURE: No increased pulmonary vasculature. PLEURA: No pneumothorax, effusion, or pleural thickening. CARDIAC: No cardiomegaly or cardiac silhouette abnormality. MEDIASTINUM: No visible mass or adenopathy. BONES: No fracture or visible bone lesion. OTHER: Negative. IMPRESSION: 1. No acute cardiopulmonary process. Stable chest. Electronically authenticated by: EFRA GREENE Date: 2022-09-21 07:47 Normal [facility] CBC AUTO DIFFon 03-22-2022 BASO # 0.0 103/ul Normal 0.0-0.1 [facility] Comment on above: Performed By: #### A 1C #### [facility] [address] [place] [address] Dr. Kisha Real Basophils/100 WBC (Bld) 0.2 % Normal 0.2-2.0 [facility] Comment on above: Performed By: #### A 1C #### [facility] [address] [place] [address] Dr. Kisha Real EO # 0.4 103/ul Normal 0.0-0.7 [facility] Comment on above: Performed By: #### A 1C #### [facility] [address] [place] [address] Dr. Kisha Real Eosinophils/100 WBC (Bld) 4.5 % Normal 0.9-7.0 [facility] Comment on above: Performed By: #### A 1C #### [facility] [address] [place] [address] Dr. Kisha Real Erythrocyte distribution width (RBC) [Ratio] 19.4 % Critically high 11.0-15.0 [facility] Comment on above: Performed By: #### A 1C #### [facility] [address] [place] [address] Dr. Kisha Real Hematocrit (Bld) [Volume fraction] 32.6 % Critically low 42.0-54.0 [facility] Comment on above: Performed By: #### A 1C #### [facility] [address] [place] [address] Dr. Kisha Real Hemoglobin (Bld) [Mass/Vol] 10.1 g/dL Critically low 14.0-18.0 [facility] Comment on above: Performed By: #### A 1C #### [facility] [address] [place] [address] Dr. Kisha Real IG # 0.03 10e3/ul Normal 0.00-0.03 [facility] Comment on above: Performed By: #### A 1C #### [facility] [address] [place] [address] Dr. Kisha Real IG % 0.4 % Normal 0.0-0.5 [facility] Comment on above: Performed By: #### A 1C #### [facility] [address] [place] [address] Dr. Kisha Real LYMPH # 2.5 103/ul Normal 1.2-3.8 [facility] Comment on above: Performed By: #### A 1C #### [facility] [address] [place] [address] Dr. Kisha Real Lymphocytes/100 WBC (Bld) 29.5 % Normal 20.5-60.0 [facility] Comment on above: Performed By: #### A 1C #### [facility] [address] [place] [address] Dr. Kisha Real MANUAL DIFF REQ NO Normal [facility] Comment on above: Performed By: #### A 1C #### [facility] [address] [place] [address] Dr. Kisha Real MCH (RBC) [Entitic mass] 26.0 pg Normal 25.9-34.0 [facility] Comment on above: Performed By: #### A 1C #### [facility] [address] [place] [address] Dr. Kisha Real MCHC (RBC) [Mass/Vol] 31.0 g/dL Normal 29.9-35.2 [facility] Comment on above: Performed By: #### A 1C #### [facility] [address] [place] [address] Dr. Kisha Real MCV (RBC) [Entitic vol] 83.8 fL Normal 80.0-94.0 [facility] Comment on above: Performed By: #### A 1C #### [facility] [address] [place] [address] Dr. Kisha Real MONO # 0.6 103/ul Normal 0.3-0.8 [facility] Comment on above: Performed By: #### A 1C #### [facility] [address] [place] [address] Dr. Kisha Real Monocytes/100 WBC (Bld) 7.7 % Normal 1.7-12.0 [facility] Comment on above: Performed By: #### A 1C #### [facility] [address] [place] [address] Dr. Kisha Real NEUT # 4.8 103/ul Normal 1.4-6.5 [facility] Comment on above: Performed By: #### A 1C #### [facility] [address] [place] [address] Dr. Kisha Real Neutrophils/100 WBC (Bld) 57.7 % Normal 43.0-75.0 [facility] Comment on above: Performed By: #### A 1C #### [facility] [address] [place] [address] Dr. Kisha Real Platelet mean volume (Bld) [Entitic vol] 9.6 fL Normal 9.5-13.5 [facility] Comment on above: Performed By: #### A 1C #### [facility] [address] [place] [address] Dr. Kisha Real PLT 233 103/ul Normal 150-450 [facility] Comment on above: Performed By: #### A 1C #### [facility] [address] [place] [address] Dr. Kisha Real RBC 3.89 106/ul Critically low 4.70-6.10 [facility] Comment on above: Performed By: #### A 1C #### [facility] [address] [place] [address] Dr. Kisha Real WBC 8.4 103/ul Normal 4.0-11.0 [facility] Comment on above: Performed By: #### A 1C #### [facility] [address] [place] [address] Dr. Kisha Real GLYCOHEMOGLOBIN A1Con 2021 ADA RECOMMENDATION SEE BELOW Normal [facility] Comment on above: Result Comment: ADA RECOMMENDED LIMIT 4.0 - 6.0 ADA THERAPEUTIC TARGET < 7.0 ACTION SUGGESTED > 7.0 Performed By: #### A 1C #### [facility] [address] [place] [address] Dr. Kisha Real Glucose [Mass/Vol] 140 mg/dL Normal [facility] Comment on above: Performed By: #### A 1C #### [facility] [address] [place] [address] Dr. Kisha Real HbA1c (Bld) [Mass fraction] 6.5 % Critically high 4.5-6.2 [facility] Comment on above: Performed By: #### A 1C #### [facility] [address] [place] [address] Dr. Kisha Real US KIDNEYSon 02-08-2022 US KIDNEYS EXAMINATION: US KIDN EYS HISTORY: Kidney stone COMPARISON: No relevant comparison available. TECHNIQUE: Ultrasound examination was performed of the bladder. FINDINGS: Right Kidney: Normal in size, contour and cortical echotexture. No solid cortical mass, hydronephrosis or obstructing nephrolithiasis. The cortex measures 2 cm. 2 areas of anechoic echogenicity measuring 1.7 cm and is 0.7 cm, simple cortical cyst. Height: 5.9 cm Length: 11.9 cm Width: 6.1 cm Left Kidney: Normal in size, contour and cortical echotexture. No solid cortical mass, hydronephrosis or obstructing nephrolithiasis. The cortex measures 1.3 cm. Height: 4.4 cm Length: 10.0 cm Width: 4.6 cm The urinary bladder is nondistended measuring 1.3 x 2.5 x 2.2 cm with presence of a balloon catheter IMPRESSION: No significant nephrolithiasis observed Electronically authenticated by: SANCHEZ MARTIN Date: 2022-02-08 16:23 Normal [facility] WANDA Screen w/reflexon 2020 WANDA Screen Negative Normal NEG [facility] Comment on above: Performed By: #### C RP, ANAX ####[address] [id number] Lab Director: Steven Mckinney MD#### SED ####[address] [place] [id number] lab Director: Sanchez Walker MD Anti-dsDNA 4.3 IU/mL Normal <10.0 [facility] Comment on above: Result Comment: Reference Range: <10.0 Negative 10.0-15.0 Equivocal >15.0 Positive Performed By: #### C RP, ANAX ####[address] [address] Lab Director: Steven Mckinney MD#### SED ####[address] [place] [id number] lab Director: Sanchez Walker MD KATHIA Screen 0.3 U/mL Normal <0.7 [facility] Comment on above: Result Comment: Reference Range: <0.7 Negative 0.7-1.0 Equivocal >1.0 Positive KATHIA Screen includes U1RNP,RNP70,Sm,Ro(SS-A),La(SS-B),CENP,Scl-70,Stefani-1 Performed By: #### C RP, ANAX ####[facility] [id number] [place] [address] Lab Director: Steven Mckinney MD#### SED ####[address] [place], [place] [id number] Lab Director: Sanchez Walker MD C-Reactive Proteinon 06-02- 021 CRP [Mass/Vol] mg/L Normal 0.0-5.0 [facility] Comment on above: Performed By: #### C RP, ANAX ####[facility] [id number] [place] [address] Lab Director: Steven Mckinney MD#### SED ####[address] [place] [id number] Lab Director: Sanchez Walker MD Sedimentation Rateon 06-01- 021 Sedimentation Rate 17 mm Normal 0-20 [facility] Comment on above: Performed By: #### C RP, ANAX ####[facility] [id number] [place] [address] Lab Director: Steven Mckinney MD#### SED ####[address] [place], [place] [id number] Lab Director: Sanchez Walker MD MRI CERVICAL SPINE WO CONTRA STon 02-13-2021 MRI CERVICAL SPINE WO CONTRAST EXAMINATION: MRI OF THE CERVICAL SPINE WITHOUT CONTRAST 02/13/2021 8:59 am TECHNIQUE: Multiplanar multisequence MRI of the cervical spine was performed without the administration of intravenous contrast. COMPARISON: None. HISTORY: ORDERING SYSTEM PROVIDED HISTORY: Myelopathy, spondylogenic, cervical FINDINGS: BONES/ALIGNMENT: The vertebral body heights are maintained. There is age-appropriate bone marrow signal. There is degenerative endplate change throughout the mid and lower cervical spine. There is multilevel degenerative disc disease with loss of disc signal. There is no significant disc space narrowing. There is no spondylolisthesis. SPINAL CORD: The spinal cord is normal in caliber and signal. SOFT TISSUES: Posterior paraspinal soft tissues are unremarkable. The prevertebral soft tissues are unremarkable. C2-C3: There is no significant disc protrusion, spinal canal stenosis or neural foraminal narrowing. C3-C4: There is a disc osteophyte complex with uncovertebral and facet hypertrophy. There is no canal stenosis. There is moderate left and severe right foraminal narrowing. C4-C5: There is a disc osteophyte complex with uncovertebral and facet hypertrophy. There is canal stenosis measuring 9 mm in AP dimension. There is mild right and moderate left foraminal narrowing. C5-C6: There is a disc osteophyte complex with uncovertebral and facet hypertrophy. There is canal stenosis measuring 9 mm in AP dimension. There is severe bilateral foraminal narrowing. C6-C7: There is a disc osteophyte complex with uncovertebral and facet hypertrophy. There is canal stenosis measuring 9 mm in AP dimension. There is moderate bilateral foraminal narrowing. C7-T1: There is a disc osteophyte complex with uncovertebral and facet hypertrophy. There is no canal stenosis. There is mild left and severe right foraminal narrowing. IMPRESSION: Multilevel degenerative disc disease with uncovertebral and facet hypertrophy resulting in canal stenosis at C4-5, C5-6, and C6-7. Foraminal narrowing bilaterally throughout the cervical spine as described above. Interpreted by: Sam Huang MD Signed by: Sam Huang MD 02/13/21 Final result Normal [facility] MRI CERVICAL SPINE WO CONTRA STOrdered By: Chance Mcneal on 02-13-2021 Multilevel degenerat jacob disc disease with uncovertebral and facet hypertrophy resulting in canal stenosis at C4-5, C5-6, and C6-7. Foraminal narrowing bilaterally throughout the cervical spine as described above. [facility] [employer] Work Phone: EXAMINATION: MRI OF THE CERVICAL SPINE WITHOUT CONTRAST 02/13/2021 8:59 am TECHNIQUE: Multiplanar multisequence MRI of the cervical spine was performed without the administration of intravenous contrast. COMPARISON: None. HISTORY: ORDERING SYSTEM PROVIDED HISTORY: Myelopathy, spondylogenic, cervical FINDINGS: BONES/ALIGNMENT: The vertebral body heights are maintained. There is age-appropriate bone marrow signal. There is degenerative endplate change throughout the mid and lower cervical spine. There is multilevel degenerative disc disease with loss of disc signal. There is no significant disc space narrowing. There is no spondylolisthesis. SPINAL CORD: The spinal cord is normal in caliber and signal. SOFT TISSUES: Posterior paraspinal soft tissues are unremarkable. The prevertebral soft tissues are unremarkable. C2-C3: There is no significant disc protrusion, spinal canal stenosis or neural foraminal narrowing. C3-C4: There is a disc osteophyte complex with uncovertebral and facet hypertrophy. There is no canal stenosis. There is moderate left and severe right foraminal narrowing. C4-C5: There is a disc osteophyte complex with uncovertebral and facet hypertrophy. There is canal stenosis measuring 9 mm in AP dimension. There is mild right and moderate left foraminal narrowing. C5-C6: There is a disc osteophyte complex with uncovertebral and facet hypertrophy. There is canal stenosis measuring 9 mm in AP dimension. There is severe bilateral foraminal narrowing. C6-C7: There is a disc osteophyte complex with uncovertebral and facet hypertrophy. There is canal stenosis measuring 9 mm in AP dimension. There is moderate bilateral foraminal narrowing. C7-T1: There is a disc osteophyte complex with uncovertebral and facet hypertrophy. There is no canal stenosis. There is mild left and severe right foraminal narrowing. [employer] Work Phone: [place], [facility] Incoming R adiant Results From [facility] - 02/13/2021 10:31 AM EDT EXAMINATION: MRI OF THE CERVICAL SPINE WITHOUT CONTRAST 02/13/2021 8:59 am TECHNIQUE: Multiplanar multisequence MRI of the cervical spine was performed without the administration of intravenous contrast. COMPARISON: None. HISTORY: ORDERING SYSTEM PROVIDED HISTORY: Myelopathy, spondylogenic, cervical FINDINGS: BONES/ALIGNMENT: The vertebral body heights are maintained. There is age-appropriate bone marrow signal. There is degenerative endplate change throughout the mid and lower cervical spine. There is multilevel degenerative disc disease with loss of disc signal. There is no significant disc space narrowing. There is no spondylolisthesis. SPINAL CORD: The spinal cord is normal in caliber and signal. SOFT TISSUES: Posterior paraspinal soft tissues are unremarkable. The prevertebral soft tissues are unremarkable. C2-C3: There is no significant disc protrusion, spinal canal stenosis or neural foraminal narrowing. C3-C4: There is a disc osteophyte complex with uncovertebral and facet hypertrophy. There is no canal stenosis. There is moderate left and severe right foraminal narrowing. C4-C5: There is a disc osteophyte complex with uncovertebral and facet hypertrophy. There is canal stenosis measuring 9 mm in AP dimension. There is mild right and moderate left foraminal narrowing. C5-C6: There is a disc osteophyte complex with uncovertebral and facet hypertrophy. There is canal stenosis measuring 9 mm in AP dimension. There is severe bilateral foraminal narrowing. C6-C7: There is a disc osteophyte complex with uncovertebral and facet hypertrophy. There is canal stenosis measuring 9 mm in AP dimension. There is moderate bilateral foraminal narrowing. C7-T1: There is a disc osteophyte complex with uncovertebral and facet hypertrophy. There is no canal stenosis. There is mild left and severe right foraminal narrowing. IMPRESSION: Multilevel degenerative disc disease with uncovertebral and facet hypertrophy resulting in canal stenosis at C4-5, C5-6, and C6-7. Foraminal narrowing bilaterally throughout the cervical spine as described above. [facility] Work Phone: [facility] Work Phone: Creatinine w/GFRon 1 (cont.) Normal [facility] Comment on above: Result Comment: Aver age GFR for 60-69 years old: 85 mL/min/1.73sq m Chronic Kidney Disease: <60 mL/min/1.73sq m Kidney failure: <15 mL/min/1.73sq m eGFR calculated using average adult body mass. Additional eGFR calculator available at: http://www.Buzzoek.MemfoACT/multiple_crcl_2012.htm Performed By: #### C REG ####[facility] [place] [address] lab Director: Sanchez Walker MD Creatinine [Mass/Vol] 0.95 mg/dL Normal 0.70-1.20 [facility] Comment on above: Performed By: #### C REG ####[facility] , [place] [id number] lab Director: Sanchez Walker MD GFR, Amer >60 Normal >60 [facility] Comment on above: Performed By: #### C REG ####[facility] , [place] [id number] lab Director: Sanchez Walker MD GFR,non Amer >60 Normal >60 [facility] Comment on above: Performed By: #### C REG ####[facility] , [place] [id number] lab Director: Sanchez Walker MD Staging: Normal [facility] Comment on above: Result Comment: Stag e 1: Some kidney damage normal GFR Stage 2: Mild kidney damage GFR 60-89 Stage 3: Moderate kidney damage GFR 30-59 Stage 4: Severe kidney damage GFR 15-29 Stage 5: Severe kidney damage GFR <15 ESRD - chronic treatment by dialysis or transplant Performed By: #### C REG ####[address] [place] [address] lab Director: Sanchez Walker MD Creatinine, SerumOrdered By: Cathleen Cooney on 02-11-2021 Creatinine [Mass/Vol] 0.95 mg/dL 0.70 - 1.20 mg/dL [employer] Phone: GFR >60 >60 mL/min [employer] Phone: GFR Non- >60 >60 mL/min [employer] Phone: [employer] Phone: Laboratory - Chemistry and C hemistry - challengeOrdered By: Cathleen Cooney on 02-11-2021 GFR/1.73 sq M.predicted MDRD (S/P/Bld) [Vol rate/Area] [employer] Phone: Comment on above: Average GFR for 60-6 9 years old: 85 mL/min/1.73sq m Chronic Kidney Disease: <60 mL/min/1.73sq m Kidney failure: <15 mL/min/1.73sq m eGFR calculated using average adult body mass. Additional eGFR calculator available at: http://www.Yoostay/multiple_crcl_2012.htm Stage 1: Some kidney damage normal GFR Stage 2: Mild kidney damage GFR 60-89 Stage 3: Moderate kidney damage GFR 30-59 Stage 4: Severe kidney damage GFR 15-29 Stage 5: Severe kidney damage GFR <15 ESRD - chronic treatment by dialysis or transplant MRI LUMBAR SPINE W WO CONTRA STon 02-11-2021 MRI LUMBAR SPINE W WO CONTRAST EXAMINATION: MRI OF THE LUMBAR SPINE WITHOUT AND WITH CONTRAST 02/11/2021 10:48 am TECHNIQUE: Multiplanar multisequence MRI of the lumbar spine was performed without and with the administration of intravenous contrast. COMPARISON: None. HISTORY: ORDERING SYSTEM PROVIDED HISTORY: Spinal stenosis, lumbar region, with neurogenic claudication FINDINGS: BONES/ALIGNMENT: Vertebral body heights are maintained. There is age-appropriate bone marrow signal. There is posterior hardware fusion at the L1-2 level. There is left sided posterior fusion at the L5-S1 level. There is degenerative disc disease at the remaining levels with loss of disc signal. There is no significant disc space narrowing. There is no spondylolisthesis. SPINAL CORD: The conus medullaris is normal in caliber and signal and terminates at L1. The cauda equina is unremarkable. SOFT TISSUES: Posterior paraspinal soft tissues are unremarkable. There is no abnormal postcontrast enhancement appreciated. The visualized abdominal structures are unremarkable. L1-L2: There is artificial disc material with posterior laminectomy. There is no canal stenosis or foraminal narrowing. L2-L3: There is a circumferential disc bulge with facet hypertrophy. There is no canal stenosis or left foraminal narrowing. There is moderate right foraminal narrowing. L3-L4: There is a circumferential disc bulge with facet and ligamentous hypertrophy. There is no canal stenosis or foraminal narrowing. L4-L5: There is a circumferential disc bulge with facet and ligamentous hypertrophy. There is no significant canal stenosis. There is narrowing of the lateral recesses. There is mild left and moderate right foraminal narrowing. L5-S1: There is artificial disc material with posterior laminectomy. There is no canal stenosis. There is no significant left-sided foraminal narrowing. There is moderate to severe right foraminal narrowing. IMPRESSION: Posterior fixation at L1-2 and L5-S1 without hardware complication. Multilevel degenerative change with moderate right foraminal narrowing at L2-3, mild left and moderate right foraminal narrowing at L4-5, and moderate to severe right foraminal narrowing at L5-S1. Interpreted by: Sam Huang MD Signed by: Sam Hunag MD 02/11/21 Final result Normal [facility] Lipid Profileon 11-22-2020 Cholesterol [Mass/Vol] 140 mg/dL Normal <200 [facility] Comment on above: Result Comment: Cholesterol Guidelines: <200 Desirable 200-240 Borderline >240 Undesirable Performed By: #### L IPR ####[facility] [id number] [place] [address] Lab Director: Steven Mckinney MD Cholesterol in HDL [Mass/Vol] 61 mg/dL Normal >40 [facility] Comment on above: Result Comment: HDL Guidelines: <40 Undesirable 40-59 Borderline >59 Desirable Performed By: #### L IPR ####[facility] [address] [place] [address] Lab Director: Steven Mckinney MD Cholesterol in LDL [Mass/Vol] 60 mg/dL Normal 0-130 [facility] Comment on above: Result Comment: LDL Guidelines: <100 Desirable 100-129 Near to/above Desirable 130-159 Borderline >159 Undesirable Direct (measured) LDL and calculated LDL are not interchangeable tests. Performed By: #### L IPR ####[facility] [id number] [place] [address] Lab Director: Steven Mckinney MD Cholesterol.total/Chol esterol in HDL [Mass ratio] 2.3 {ratio} Normal <5 [facility] Comment on above: Performed By: #### L IPR ####[facility] [address] [place] [address] Lab Director: Steven Mckinney MD Triglyceride [Mass/Vol] 96 mg/dL Normal <150 [facility] Comment on above: Result Comment: Triglyceride Guidelines: <150 Desirable 150-199 Borderline 200-499 High >499 Very high Based on AHA Guidelines for fasting triglyceride, May 2012. Performed By: #### L IPR ####[facility] [place] [address] Lab Director: Steven Mckinney MD Inez 11-21-2020 ALT [Catalytic activity/Vol] 21 U/L Normal 5-41 [facility] Comment on above: Performed By: #### C BC, ALT, AST, BMP #### [facility] [address] [place] [address] [employer]: Sanchez Walker MD #### CASANDRA VEE GLYHGB #### [facility] [employer] [address] [place], [place] [id number] [employer]eder: Steven Mckinney MD ALT [Catalytic activity/Vol] 21 U/L 5 - 41 U/L [facility] [employer] Phone: Barry 11-21-2020 AST [Catalytic activity/Vol] 25 U/L Normal <40 [facility] Comment on above: Performed By: #### C BC, ALT, AST, BMP #### [address] [place] [address] [employer]: Sanchez Walker MD #### CASANDRA VEE GLYHGB #### [facility] [employer] [facility] [place], [place] [id number] [employer] Feeder: Steven Mckinney MD AST [Catalytic activity/Vol] 25 U/L <40 [facility] Phone: Basic Metabolic Panelon 04-0 Anion gap [Moles/Vol] 10 mmol/L 9 - 17 mmol/L [facility] Phone: Calcium [Mass/Vol] 10.1 mg/dL 8.6 - 10. 4 mg/dL [employer] Phone: Chloride [Moles/Vol] 101 mmol/L 98 - 10 7 mmol/L [employer] Phone: CO2 [Moles/Vol] 27 mmol/L 20 - 31 mmol/L [employer] Phone: Creatinine [Mass/Vol] 0.89 mg/dL 0.70 - 1.20 mg/dL [employer] Phone: GFR >60 >60 mL/min [employer] Phone: GFR Non- >60 >60 mL/min [employer] Phone: Glucose [Mass/Vol] 125 mg/dL High 70 - 99 mg/dL [employer] Phone: Interpretation and review of laboratory results Abnormal [employer] Phone: Potassium [Moles/Vol] 3.7 mmol/L 3.7 - 5.3 mmol/L [employer] Phone: Sodium [Moles/Vol] 138 mmol/L 135 - 144 mmol/L [employer] Phone: Urea nitrogen (BldV) [Mass/Vol] 16 mg/dL 8 - 23 mg/dL [employer] Phone: Urea nitrogen/Creatinine (Bld) [Mass ratio] 18 [employer] Phone: Basic Metabolic Profon 11-21 (cont.) Normal [facility] Comment on above: Result Comment: Aver age GFR for 60-69 years old: 85 mL/min/1.73sq m Chronic Kidney Disease: <60 mL/min/1.73sq m Kidney failure: <15 mL/min/1.73sq m eGFR calculated using average adult body mass. Additional eGFR calculator available at: http://www.Buzzoek.MemfoACT/multiple_crcl_2012.htm Performed By: #### C BC, ALT, AST, BMP #### [facility] [address] [place] [address] [employer]: Sanchez Walker MD #### CASANDRA VEE GLYHGB #### [address] [id number] [employer]eder: Steven Mckinney MD Anion gap [Moles/Vol] 10 mmol/L Normal 9-17 [facility] Comment on above: Performed By: #### C BC, ALT, AST, BMP #### [facility] [address] [place] [address] [employer] Feeder: Sanchez Walker MD #### CASANDRA VEE, GLYHGB #### [place] [place] [address] [employer]eder: Steven Mckinney MD BUN/CRE Ratio 18 Normal 9-20 [facility] Comment on above: Performed By: #### C BC, ALT, AST, BMP #### [facility] [address] [place] [address] [employer] Feeder: Sanchez Walker MD #### CASANDRA VEE, GLYHGB #### [address] [place], [place] [id number] [employer]eder: Steven Mckinney MD Calcium [Mass/Vol] 10.1 mg/dL Normal 8.6-10.4 [facility] Comment on above: Performed By: #### C BC, ALT, AST, BMP #### [facility] [address] [place] [address] [employer]eder: Sanchez Walker MD #### CASANDRA VEE, GLYHGB #### [address] [place], [place] [phone] [employer]eder: Steven Mckinney MD Chloride [Moles/Vol] 101 mmol/L Normal 98-107 [facility] Comment on above: Performed By: #### C BC, ALT, AST, BMP #### [facility] [address] [place], [place] 8[address] [employer]eder: Sanchez Walker MD #### CASANDRA VEE, GLYHGB #### [address] [id number] [employer]eder: Steven Mckinney MD CO2 [Moles/Vol] 27 mmol/L Normal 20-31 [facility] Comment on above: Performed By: #### C BC, ALT, AST, BMP #### [facility] [address] [place], [place] [address] [employer] Feeder: Sanchez Walker MD #### CASANDRA VEE, GLYHGB #### [address] [id number] [employer]eder: Steven Mckinney MD Creatinine [Mass/Vol] 0.89 mg/dL Normal 0.70-1.20 [facility] Comment on above: Performed By: #### C BC, ALT, AST, BMP #### [address] [place], [place] [address] [employer]eder: Sanchez Walker MD #### CASANDRA VEE, GLYHGB #### [address] [id number] [employer]eder: Steven Mckinney MD GFR, Amer >60 Normal >60 [facility] Comment on above: Performed By: #### C BC, ALT, AST, BMP #### [facility] [address] [place] [address] [place], [place] 0229783 [employer]eder: Sanchez Walker MD #### JOSSE VEEI, GLYHGB #### [address] [address] [employer]: Steven Mckinney MD GFR,non Amer >60 Normal >60 [facility] Comment on above: Performed By: #### C BC, ALT, AST, BMP #### [facility] [address] [place], [place] [address] [employer]eder: Sanchez Walker MD #### CASANDRA VEE, GLYHGB #### [address] [place], [place] 8539[address] [employer] Feeder: Steven Mckinney MD Glucose [Mass/Vol] 125 mg/dL High 70-99 [facility] Comment on above: Performed By: #### C BC, ALT, AST, BMP #### [address] [place], [place] [address] [employer]eder: Sanchez Walker MD #### CASANDRA VEE, GLYHGB #### [address] [id number] [employer] Feeder: Steven Mckinney MD Potassium [Moles/Vol] 3.7 mmol/L Normal 3.7-5.3 [facility] Comment on above: Performed By: #### C BC, ALT, AST, BMP #### [address] [place], [place] [address] [employer] Feeder: Sanchez Walker MD #### CASANDRA VEE, GLYHGB #### [address] [id number] [employer]eder: Steven Mckinney MD Sodium [Moles/Vol] 138 mmol/L Normal 135-144 [facility] Comment on above: Performed By: #### C BC, ALT, AST, BMP #### [address] [place], [place] [address] [employer] Feeder: Sanchez Walker MD #### CASANDRA VEE, GLYHGB #### [address] [id number] [employer] Feeder: Steven Mckinney MD Staging: Normal [facility] Comment on above: Result Comment: Stag e 1: Some kidney damage normal GFR Stage 2: Mild kidney damage GFR 60-89 Stage 3: Moderate kidney damage GFR 30-59 Stage 4: Severe kidney damage GFR 15-29 Stage 5: Severe kidney damage GFR <15 ESRD - chronic treatment by dialysis or transplant Performed By: #### C BC, ALT, AST, BMP #### [address] [place] [address] [employer] Fe[employer]: Sanchez Walker MD #### FE, JOSSEI, GLYHGB #### [address] [id number] [employer] Feeder: Steven Mckinney MD Urea nitrogen [Mass/Vol] 16 mg/dL Normal 8-23 [facility] Comment on above: Performed By: #### C BC, ALT, AST, BMP #### [address] [place] [address] [employer]eder: Sanchez Walker MD #### FE, FERI, GLYHGB #### [address] [id number] [employer]eder: Steven Mckinney MD CBCon 11-21-2020 Erythrocyte distribution width (RBC) [Ratio] 13.3 % Normal 11.8-14.4 [facility] Comment on above: Performed By: #### C BC, ALT, AST, BMP #### [address] [place] [address] [employer]: Sanchez Walker MD #### FE, FERI, GLYHGB #### [address] [id number] [employer] Feeder: Steven Mckinney MD Hematocrit (Bld) [Volume fraction] 38.8 % Low 40.7-50.3 [facility] Comment on above: Performed By: #### C BC, ALT, AST, BMP #### [address] [place] [address] [employer] Feeder: Sanchez Walker MD #### FE, FERI, GLYHGB #### [address] [address] [place], [place] [address] [employer] Feeder: Steven Mckinney MD Hemoglobin (Bld) [Mass/Vol] 13.5 g/dL Normal 13.0-17.0 [facility] Comment on above: Performed By: #### C BC, ALT, AST, BMP #### [address] [place] [id number] [employer]eder: Sanchez Walker MD #### FE, FERI, GLYHGB #### [address] [id number] [employer] Feeder: Steven Mckinney MD MCH (RBC) [Entitic mass] 31.8 pg Normal 25.2-33.5 [facility] Comment on above: Performed By: #### C BC, ALT, AST, BMP #### [address] [place] [id number] [employer]eder: Sanchez Walker MD #### FEJOSSEI, GLYHGB #### [place] [address] [employer] Feeder: Steven Mckinney MD MCHC (RBC) [Mass/Vol] 34.8 g/dL Normal 28.4-34.8 [facility] Comment on above: Performed By: #### C BC, ALT, AST, BMP #### [address] [place] [id number] [employer] Feeder: Sanchez Walker MD #### FE, FERI, GLYHGB #### [place] [id number] [employer] Feeder: Steven Mckinney MD MCV (RBC) [Entitic vol] 91.3 fL Normal 82.6-102.9 [facility] Comment on above: Performed By: #### C BC, ALT, AST, BMP #### [address] [place] [id number] [employer] Feeder: Sanchez Walker MD #### CASANDRA VEE GLYHGB #### [address] [address] [place], [place] 3123[address] [employer] Feeder: Steven Mckinney MD NRBC Automated 0.0 per 100 WBC Normal 0.0 [facility] Comment on above: Performed By: #### C BC, ALT, AST, BMP #### [address] [place] [id number] [employer] Feeder: Sanchez Walker MD #### CASANDRA VEE, GLYHGB #### [place] [phone] [employer] Feeder: Steven Mckinney MD Platelet mean volume (Bld) [Entitic vol] 9.4 fL Normal 8.1-13.5 [facility] Comment on above: Performed By: #### C BC, ALT, AST, BMP #### [address] [place] [id number] [employer] Feeder: Sanchez Walker MD #### CASANDRA VEE, GLYHGB #### [place] [phone] [employer] Feeder: Steven Mckinney MD Platelets (Bld) [#/Vol] 157 10*3/uL Normal 138-453 [facility] Comment on above: Performed By: #### C BC, ALT, AST, BMP #### [address] [place] [phone] [employer] Feeder: Sanchez Walker MD #### JOSSE VEEI, GLYHGB #### [address] [phone] [employer] Feeder: Steven Mckinney MD RBC (Bld) [#/Vol] 4.25 10*6/uL Normal 4.21-5.77 [facility] Comment on above: Performed By: #### C BC, ALT, AST, BMP #### [facility] [address] [place] [address] [employer] Feeder: Sanchez Walker MD #### FE, JOSSEI, GLYHGB #### [facility] [address] [place], [place] [address] [employer] Feeder: Steven Mckinney MD WBC (Bld) [#/Vol] 6.9 10*3/uL Normal 3.5-11.3 [facility] Comment on above: Performed By: #### C BC, ALT, AST, BMP #### [facility] [address] [place] [address] [employer] Blower Feeder: Sanchez Walker MD #### MARIUSZ, CASANDRA, GLYHGB #### [facility] [address] [place], [place] [phone] [employer] Feeder: Steven Mckinney MD Hematocrit (Bld) [Volume fraction] 38.8 % Low 40.7 - 50.3 % [employer] Phone: Hemoglobin.gastrointes tinal spec 1 Ql (Stl) 13.5 g/dL 13.0 - 17.0 g/dL [facility] Phone: Interpretation and review of laboratory results Abnormal [employer] Phone: MCH (RBC) [Entitic mass] 31.8 pg 25.2 - 33.5 pg [employer] Phone: MCHC (RBC) [Mass/Vol] 34.8 g/dL 28.4 - 34.8 g/dL [employer] Phone: MCV (RBC) [Entitic vol] 91.3 fL 82.6 - 102.9 fL [employer] Phone: Platelet distribution width (Bld) [Ratio] 13.3 % 11.8 - 14.4 % [employer] Phone: Platelet mean volume (Bld) [Entitic vol] 9.4 fL 8.1 - 13.5 fL [employer] Phone: Platelets (Bld) [#/Vol] 157 10*3/uL [employer] Phone: RBC (Bld) [#/Vol] 4.25 10*6/uL 4.21 - 5.77 m/uL [employer] Phone: WBC (Bld) [#/Vol] 0.0 10*3/uL 0.0 per 100 WBC [employer] Phone: WBC (Bld) [#/Vol] 6.9 10*3/uL [employer] Phone: Ferritinon 11-21-2020 Ferritin 77 ug/L Normal 30-400 [facility] Comment on above: Performed By: #### C BC, ALT, AST, BMP #### [facility] [address] [place] [address] [employer] Feeder: Sanchez Walker MD #### CASANDRA VEE GLYHGB #### [facility] [place], [place] [id number] [employer]lower Feeder: Steven Mckinney MD Ferritin [Mass/Vol] 77 ug/L 30 - 400 ug/L [facility] [employer] Phone: Hemoglobin A1Con 11-21-2020 Glucose [Mass/Vol] 154 mg/dL Normal [facility] Comment on above: Result Comment: The ADA and AACC recommend providing the estimated average glucose result to permit better patient understanding of their HBA1c result. Performed By: #### C BC, ALT, AST, BMP #### [facility] [address] [place] [address] [employer] Feeder: Sanchez Walker MD #### CASANDRA VEE GLYHGB #### [facility] [address] [place], [place] 9934[address] [employer]lower Feeder: Steven Mckinney MD HbA1c (Bld) [Mass fraction] 7.0 % High 4.0-6.0 [facility] Comment on above: Performed By: #### C BC, ALT, AST, BMP #### [facility] [address] [place] [address] [place], [place] 399[address] [employer]lower Feeder: Sanchez Walker MD #### CASANDRA VEE, GLYHGB #### [facility] [address] [place], [place] [phone] [employer]lower Feeder: Steven Mckinney MD Glucose [Mass/Vol] 154 mg/dL [facility] [employer] Phone: Comment on above: The ADA and AACC rec ommend providing the estimated average glucose result to permit better patient understanding of their HBA1c result. HbA1c (Bld) [Mass fraction] 7.0 % High 4.0 - 6.0 % [facility] [employer] Phone: Interpretation and review of laboratory results Abnormal [facility] Phone: [employer] 11-21-2020 Iron [Mass/Vol] 180 ug/dL High 59-158 [facility] Comment on above: Performed By: #### C BC, ALT, AST, BMP #### [facility] [address] [place] [address] [place] [address] [employer] Blower Feeder: Sanchez Walker MD #### CASANDRA VEE, GLYHGB #### [facility] [address] [place], [place] [id number] [employer] Blower Feeder: Steven Mckinney MD Interpretation and review of laboratory results Abnormal [facility] Phone: Iron [Mass/Vol] 180 ug/dL High 59 - 158 ug/dL [facility] Phone: Lipid Panelon 11-21-2020 Cholesterol [Mass/Vol] 140 mg/dL <200 [facility] [employer] Phone: Comment on above: Cholesterol Guidelines: <200 Desirable 200-240 Borderline >240 Undesirable Cholesterol in HDL [Mass/Vol] 61 mg/dL >40 [employer] Phone: Comment on above: HDL Guidelines: <40 Undesirable 40-59 Borderline >59 Desirable Cholesterol in LDL [Mass/Vol] 60 mg/dL 0 - 130 mg/dL [employer] Phone: Comment on above: LDL Guidelines: <100 Desirable 100-129 Near to/above Desirable 130-159 Borderline >159 Undesirable Direct (measured) LDL and calculated LDL are not interchangeable tests. Cholesterol in VLDL [Mass/Vol] NOT REPORTED 1 - 30 mg/dL [employer] Phone: Cholesterol.total/Chol esterol in HDL [Mass ratio] 2.3 {ratio} <5 [employer] Phone: Triglyceride [Mass/Vol] 96 mg/dL <150 [employer] Phone: Comment on above: Triglyceride Guidelines: <150 Desirable 150-199 Borderline 200-499 High >499 Very high Based on AHA Guidelines for fasting triglyceride, May 2012. Lipid Profileon 11-21-2020 Cholesterol,VLDL NOT REPORTED Normal -30 [facility] Comment on above: Performed By: #### L IPR ####[facility] [id number] [place] [address] Lab Director: Steven Mckinney MD Microalb.,Random Uron 2020 Creatinine [Mass/Vol] 177.7 mg/dL Normal 39.0-259.0 [facility] Comment on above: Performed By: #### U RNMAB ####[facility] [id number] [place] [address] Lab Director: Steven Mckinney MD Microalb/Creat Ratio 31 mcg/mg creat High <17 [facility] Comment on above: Performed By: #### U RNMAB ####[facility] [id number] [place], [place] [id number] Lab Director: Steven Mckinney MD Microalbumin conc. 55 mg/L High <21 [facility] Comment on above: Performed By: #### U RNMAB ####[facility] [id number] [place] [address] lab Director: Steven Mckinney MD Microalbumin, Uron Albumin/Creatinine DL <= 20 mg/L (24H U) [Mass ratio] 55 mg/L High <21 [facility] Phone: Albumin/Creatinine DL <= 20 mg/L (U) [Ratio] 31 High <17 mcg/mg creat [employer] Phone: Creatinine [Mass/Vol] 177.7 mg/dL 39.0 - 259.0 mg/dL [facility] Phone: Interpretation and review of laboratory results Abnormal [employer] Phone: Otheron 11-21-2020 GFR/1.73 sq M.predicted MDRD (S/P/Bld) [Vol rate/Area] [facility] Phone: Comment on above: Average GFR for 60-6 9 years old: 85 mL/min/1.73sq m Chronic Kidney Disease: <60 mL/min/1.73sq m Kidney failure: <15 mL/min/1.73sq m eGFR calculated using average adult body mass. Additional eGFR calculator available at: http://www.Buzzoek.MemfoACT/multiple_crcl_2011.htm Stage 1: Some kidney damage normal GFR Stage 2: Mild kidney damage GFR 60-89 Stage 3: Moderate kidney damage GFR 30-59 Stage 4: Severe kidney damage GFR 15-29 Stage 5: Severe kidney damage GFR <15 ESRD - chronic treatment by dialysis or transplant CARDIAC STRESS TESTon 2019 CARDIAC STRESS TEST [address] [id number] CARDIAC STRESS TEST PATIENT NAME: CARLINMARTHA SARMAD Alcantar : 1950 MED REC NO: [id number] ROOM: ACCOUNT NO: [id number] ADMIT DATE: 06/11/2020 PROVIDER: Lowell Chowdary CARDIOVASCULAR DIAGNOSTIC DEPARTMENT DATE OF STUDY: 06/11/2020 ORDERING PROVIDER: Cathleen Cooney MD PRIMARY CARE PROVIDER: Cathleen Cooney MD INTERPRETING PHYSICIAN: Lowell Chowdary MD EXERCISE MYOCARDIAL PERFUSION STRESS TEST REPORT Stress/rest single-isotope SPECT imaging with exercise stress and gated SPECT imaging. INDICATION: Assessment of a cardiac cause of: Fatigue. CLINICAL HISTORY: The patient is a 69-year-old man with no known coronary artery disease. Previous cardiac history includes: Stress test. Other previous history includes: Fatigue, lightheadedness, syncope, diabetes mellitus, hypertension. Symptoms just prior to testing included: Fatigue. Relevant medications: Norvasc. PROCEDURE: The patient performed treadmill exercise using a Nigel protocol, completing 6:55 minutes and completing an estimated workload of 8.40 metabolic equivalents (METS). The test was terminated due to fatigue. The heart rate was 100 beats per minute at baseline and increased to 151 beats per minute at peak exercise, which was 99% of the maximum predicted heart rate. The rest blood pressure was 120/70 mmHg and increased to 168/84 mmHg, which is a normal response. During the procedure, the patient developed fatigue, shortness of breath and leg fatigue, but denied any chest discomfort. Myocardial perfusion imaging: Imaging was performed at rest 30-45 minutes following the injection of 30 mCi of sestamibi. At peak exercise, the patient was injected with 30 mCi of sestamibi and exercise was continued for 1 minute. Gating post-stress tomographic imaging was performed 30-45 minutes after stress. STRESS ECG RESULTS: The resting electrocardiogram demonstrated normal sinus rhythm without definitive ST-segment abnormalities suggestive of myocardial ischemia. At peak exercise and during recovery, the patient developed: Upsloping ST segment changes in leads II, III, aVF, V4, V5 and V6, which did meet diagnostic criteria for myocardial ischemia with no premature atrial contractions (PACs) and no premature ventricular contractions (PVCs). NUCLEAR IMAGING RESULTS: The overall quality of the study is fair. Mild attenuation artifact was seen. There is no evidence of abnormal lung uptake. Additionally, the right ventricle appears normal. The left ventricular cavity is noted to be normal in size on the stress images. There is no evidence of transient ischemic dilatation (TID) of the left ventricle. Gated SPECT imaging reveals normal myocardial thickening and wall motion with a calculated left ventricular ejection fraction of 77%. The rest images demonstrated a small/moderate perfusion abnormality of mild/moderate intensity in the inferior region, which is most likely due to artifact. On stress imaging, a small/moderate perfusion abnormality of mild/moderate intensity was noted, which is most likely due to artifact. IMPRESSION: 1. Equivocal myocardial perfusion study. There is a small/moderate perfusion defect of mild/moderate intensity in the inferior regions during stress and rest imaging, which is most consistent with artifact, but may be due to a small degree of coronary ischemia. 2. Global left ventricular systolic function was normal with an EF of 77% without regional wall motion abnormalities. 3. Significant electrocardiographic evidence of myocardial ischemia during EKG monitoring without significant associated arrhythmias. The patient's Patel Treadmill score is 2, which correlates with an intermediate risk for significant coronary artery disease. Overall, these results are most consistent with a low/intermediate risk for significant coronary artery disease. Depending on the patient symptoms and level of clinical suspicion, aggressive medical management vs. additional testing by coronary angiography may be indicated. The sensitivity for detecting ischemia on this test may have been reduced due to the patient being on a calcium channel hattie. LOWELL CHOWDARY LENA/WILLIE_GIANCARLO Doc#: Unknown CC: Cathleen Cooney [facility] 05-26-2020 ALT [Catalytic activity/Vol] 21 U/L 5 - 41 U/L [place], [place] Barry 05-26-2020 AST [Catalytic activity/Vol] 23 U/L <40 [place] Basic Metabolic Panelon 05-15 Anion gap [Moles/Vol] 13 mmol/L 9 - 17 mmol/L [place] Bun/Cre Ratio 16 [place] Calcium [Mass/Vol] 9.6 mg/dL 8.6 - 10. 4 mg/dL [place] Chloride [Moles/Vol] 102 mmol/L 98 - 10 7 mmol/L [place] CO2 [Moles/Vol] 24 mmol/L 20 - 31 mmol/L [place] Creatinine [Mass/Vol] 0.9 mg/dL 0.7 - 1.2 mg/dL [place] GFR >60 >60 mL/min [place] GFR Non- >60 >60 mL/min [place] Glucose [Mass/Vol] 113 mg/dL High 70 - 99 mg/dL [place] Interpretation and review of laboratory results Abnormal [place] Potassium [Moles/Vol] 3.6 mmol/L Low 3.7 - 5.3 mmol/L [place] Sodium [Moles/Vol] 139 mmol/L 135 - 144 mmol/L [place] Urea nitrogen [Mass/Vol] 14 mg/dL 8 - 23 mg/dL [place] CBCon 05-26-2020 Erythrocyte distribution width (RBC) [Ratio] 17.8 % High 11.8 - 14.4 % [place] Hematocrit (Bld) [Volume fraction] 37.7 % Low 40.7 - 50.3 % [place] Hemoglobin (Bld) [Mass/Vol] 11.9 g/dL Low 13 - 17 g/dL [place] Interpretation and review of laboratory results Abnormal [place] MCH (RBC) [Entitic mass] 28.2 pg 25.2 - 33.5 pg [place] MCHC (RBC) [Mass/Vol] 31.6 g/dL 28.4 - 34.8 g/dL [place] MCV (RBC) [Entitic vol] 89.3 fL 82.6 - 102.9 fL [place] Platelet mean volume (Bld) [Entitic vol] 9.8 fL 8.1 - 13.5 fL [place] Platelets (Bld) [#/Vol] 169 10*3/uL [place] RBC (Bld) [#/Vol] 4.22 10*6/uL 4.21 - 5.77 m/uL [place] WBC (Bld) [#/Vol] 5.8 10*3/uL [place] WBC (Bld) [#/Vol] 0.0 10*3/uL 0.0 per 100 WBC [place] Ferritinon 05-26-2020 Ferritin [Mass/Vol] 83 ug/L 30 - 400 ug/L [place] Hemoglobin A1Con 05-26-2020 Glucose [Mass/Vol] 146 mg/dL [place] Comment on above: The ADA and AACC rec ommend providing the estimated average glucose result to permit better patient understanding of their HBA1c result. HbA1c (Bld) [Mass fraction] 6.7 % High 4 - 6 % [place] Interpretation and review of laboratory results Abnormal [place] Ironon 05-26-2020 Iron [Mass/Vol] 72 ug/dL 59 - 158 ug/dL [place] Lipid Panelon 05-26-2020 Cholesterol [Mass/Vol] 122 mg/dL <200 Me [place] Comment on above: Cholesterol Guidelines: <200 Desirable 200-240 Borderline >240 Undesirable Cholesterol in HDL [Mass/Vol] 57 mg/dL >40 [place] Comment on above: HDL Guidelines: <40 Undesirable 40-59 Borderline >59 Desirable Cholesterol in LDL [Mass/Vol] 42 mg/dL 0 - 130 mg/dL [place] Comment on above: LDL Guidelines: <100 Desirable 100-129 Near to/above Desirable 130-159 Borderline >159 Undesirable Direct (measured) LDL and calculated LDL are not interchangeable tests. Cholesterol in VLDL [Mass/Vol] NOT REPORTED 1 - 30 mg/dL [place] Cholesterol.total/Chol esterol in HDL [Mass ratio] 2.1 {ratio} <5 [place] Triglyceride [Mass/Vol] 115 mg/dL <150 [place] Comment on above: Triglyceride Guidelines: <150 Desirable 150-199 Borderline 200-499 High >499 Very high Based on AHA Guidelines for fasting triglyceride, May 2012. Metabolic Panelon 05-26-2020 GFR/1.73 sq M predicted among non-blacks MDRD (S/P/Bld) [Vol rate/Area] [place] Comment on above: Average GFR for 60-6 9 years old: 85 mL/min/1.73sq m Chronic Kidney Disease: <60 mL/min/1.73sq m Kidney failure: <15 mL/min/1.73sq m eGFR calculated using average adult body mass. Additional eGFR calculator available at: http://www.Buzzoek.MemfoACT/multiple_crcl_2012.htm Stage 1: Some kidney damage normal GFR Stage 2: Mild kidney damage GFR 60-89 Stage 3: Moderate kidney damage GFR 30-59 Stage 4: Severe kidney damage GFR 15-29 Stage 5: Severe kidney damage GFR <15 ESRD - chronic treatment by dialysis or transplant T3, Freeon 05-26-2020 Free T3 [Mass/Vol] 2.9 pg/mL 2.02 - 4.43 pg/mL [place] T4, Freeon 05-26-2020 Thyroxine, Free 1.27 ng/dL 0.93 - 1.7 ng/dL [place] TSH without Reflexon 020 TSH Qn 4.69 m[IU]/L [place] Testosterone, Freeon 020 Sex Hormone Binding 62 nmol/L 11 - 80 nmol/L [place] Testosterone [Mass/Vol] 379 ng/dL 220 - 1000 ng/dL [place] Testosterone, Free 49.7 pg/mL 47 - 244 pg/mL [place] Comment on above: The concentration of free testosterone is derived from a mathematical expression based on the constant for the binding of testosterone to albumin and/or sex hormone binding globulin. Vitamin B12on 05-26-2020 Cobalamin (Vitamin B12) [Mass/Vol] 492 pg/mL 232 - 1245 pg/mL [place] Operative Reporton 0 Operative Report Missing Attachment 3 [id number] Can be viewed in source system Missing Attachment [id number] Can be viewed in source system Missing Attachment [id number] Can be viewed in source system Missing Attachment [id number] Can be viewed in source system Missing Attachment [id number] Can be viewed in source system Missing Attachment [id number] Can be viewed in source system Patient: Sarmad Almeida Age: 69 years Sex: Male : 1950 Associated Diagnoses: None Author: Glen CALDERON, Janene Carr Pre-Procedure Current history and physical: Allergies (2) Active Reaction amoxicillin Unknown shellfish abdomen pain , Medications (3) Active Scheduled: (1) meperidine 50 mg/mL Inj Soln 1 mL 50 mg 1 mL, IV Push, Wellness Nurse Rn Continuous: (0) PRN: (2) midazolam 1 mg/mL PF Inj Soln 2 mL 0.5 mg 0.5 mL, IV Push, q1min sodium chloride 0.9% Inj Soln 10 mL Flush 10 mL, IV Push, As Indicated . Family History: No family history items have been selected or recorded.. Social History: Social & Psychosocial Habits Alcohol 05/15/2020 Use: Never Substance Abuse 05/15/2020 Use: Denies All Tobacco 05/15/2020 Use: Never (less than 100 in l . Procedure History: Colon ([id number]). Comments: 05/15/2020 13:26 Eileen Cook colon resction after perforation COLOSTOMY ([id number]). Closure of colostomy ([id number]). KNEE ARTHROSCOPY/SURGERY ([id number]). Comments: 05/15/2020 13:27 Eileen Cook meniscal repair History of left total knee replacement ([id number]). Back ([id number]). Comments: 05/15/2020 13:29 Eileen Cook back surgery x2. Problem History: All Problems DM (diabetes mellitus) / [id number] / Confirmed Hypertension / [id number] / Confirmed Colon perforation / [id number] / Confirmed. Medications: (Selected) Inpatient Medications Ordered Normal Saline Flush 0.9% injectable solution: 10 mL, IV Push, As Indicated, PRN: flush Versed: 0.5 mg, IV Push, q1min, PRN: sedation meperidine: 50 mg, IV Push, Wellness Nurse Rn Prescriptions Prescribed Adderall XR 20 mg oral capsule, extended release: 1 caps, Oral, BID, for 30 days, add, PRN: other (see comment), 45 caps, 0 Refill(s) Documented Medications Documented Januvia: 100 mg, Oral, Daily, 0 Refill(s) allopurinol: 300 mg, Daily, 0 Refill(s) amlodipine-benazepril 5 mg-10 mg oral capsule: caps, Oral, Daily, 0 Refill(s) atorvastatin: 20 mg, Oral, Daily, 0 Refill(s) buPROPion: 150 mg, Oral, Daily, 0 Refill(s) ferrous sulfate: 325 mg, Oral, BID, 0 Refill(s) glimepiride: Oral, BID, 0 Refill(s) levothyroxine: 100 mcg, Daily, 0 Refill(s) losartan: 50 mg, Oral, Daily, 0 Refill(s) metFORMIN: 1,000 mg, Oral, BID, 0 Refill(s) valsartan: 160 mg, Oral, Daily, 0 Refill(s) venlafaxine: 225 mg, Oral, Daily, 0 Refill(s). Procedure After informed consent and outpatient preparation with Suprep patient is given the of Demerol for Versed IV. The Olympus video colonoscope is introduced after preprocedure rectal exam is given 50 of Versed 5 for Versed IV. The Olympus video colonoscope was introduced after normal rectal exam. Colonoscope was introduced. He has an end-to-side sigmoid anastomosis which is normal. Prep is fair to good. Colonoscope is advanced to the cecum without difficulty. There is a small polyp in the cecum. There was fair amount of debris around it. It was removed but we mainly had debris on retrieval. Cecum is otherwise normal. Colonoscope is slowly withdrawn. No other lesions are seen. He tolerated the procedure well. Assessment small colon polyp and sigmoid anastomosis otherwise unremarkable colon plan patient is returned to the care of his family doctor. I see nothing in the colon to cause his anemia. It is possible that it is simply related to his surgery or still a Stober from his COVID. Images Procedure images: COLONOSCOPY_0001.jpg COLONOSCOPY_0002.jpg COLONOSCOPY_0003.jpg COLONOSCOPY_0004.jpg COLONOSCOPY_0005.jpg COLONOSCOPY_0006.jpg . Post-Procedure Complications encountered during the procedure were none. Estimated blood loss during the procedure was none. Specimens Impression and Plan Education and Follow-up: Recommended repeat colonoscopy: 5 years. Electronically signed by Janene Carroll MD 05/20/20 10:39 EDT per verbal, cold snare Electronically signed by Radha Charles 08/18/20 15:24 EST Janene Carroll MD [facility] Comment on above: Order Comment: Gem lea Attachment [id number] Can be viewed in source system Missing Attachment [id number] Can be viewed in source system Missing Attachment [id number] Can be viewed in source system Missing Attachment [id number] Can be viewed in source system Missing Attachment [id number] Can be viewed in source system Missing Attachment [id number] Can be viewed in source system POC Glucose Randomon 020 Glucose [Mass/Vol] 195 mg/dL High 78-110 [facility] Comment on above: Performed By: #### C [id number] #### [address] [address] Provider Letteron 05-20-2020 Provider Letter (Inserted Image. Emily ble to display) Cathleen Cooney MD [address] [place] [id number] Re: Sarmad Almeida Date of Visit: 05/20/2020 Dear Cathleen Cooney, Let me know if you have any questions or concerns. Sincerely, Janene Carroll MD C C Providers: The following document(s) were included in the letter: May 20, 2020 10:34:00 EDT - (05/20/2020) GI Specialty Colonoscopy Procedure * [facility] CBCon 04-22-2020 Erythrocyte distribution width (RBC) [Ratio] 16.6 % High 11.8 - 14.4 % [facility], [place] Hematocrit (Bld) [Volume fraction] 35.1 % Low 40.7 - 50.3 % [place] Hemoglobin (Bld) [Mass/Vol] 10.4 g/dL Low 13 - 17 g/dL [place] Interpretation and review of laboratory results Abnormal [place] MCH (RBC) [Entitic mass] 27.2 pg 25.2 - 33.5 pg [place] MCHC (RBC) [Mass/Vol] 29.6 g/dL 28.4 - 34.8 g/dL [place] MCV (RBC) [Entitic vol] 91.6 fL 82.6 - 102.9 fL [place] Platelet mean volume (Bld) [Entitic vol] 9.0 fL 8.1 - 13.5 fL [place] Platelets (Bld) [#/Vol] 277 10*3/uL [place] RBC (Bld) [#/Vol] 3.83 10*6/uL Low 4.21 - 5.77 m/uL [place] WBC (Bld) [#/Vol] 0.0 10*3/uL 0.0 per 100 WBC [place] WBC (Bld) [#/Vol] 8.1 10*3/uL [place] Urinalysis With Microscopico n 04-22-2020 Amorphous, UA NOT REPORTED None [place] Bacteria, UA TRACE Abnormal None [place] Bilirubin Urine SMALL Abnormal NEGATIVE [place] Casts UA NOT REPORTED /LPF [place] Color, UA YELLOW YELLOW [place] Crystals, UA NOT REPORTED None /HPF [place] Epithelial Cells UA 5 TO 10 [place] Glucose, Ur Negative NEGATIVE [place] Interpretation and review of laboratory results Abnormal [place] Ketones Ql (U) TRACE Abnormal NEGATIVE [place] Leukocyte esterase Test strip Ql (U) Negative NEGATIVE [place] Mucus, UA TRACE Abnormal None [place] Nitrite, Urine Negative NEGATIVE [place] Other Observations UA NOT REPORTED NOT REQ. [place] pH, UA 5.5 [place] Protein (U) [Mass/Vol] Negative NEGATIVE [place] RBC (U) [#/Vol] 2 TO 5 [place] Renal Epithelial, UA NOT REPORTED 0 /HPF Me [place] Specific [place], UA >1.030 High [place] Trichomonas, UA NOT REPORTED None [place] Turbidity UA CLEAR CLEAR [place] Urinalysis Comments NOT REPORTED [place] Urine Hgb TRACE Abnormal NEGATIVE [place] Urobilinogen, Urine Normal Normal [place] WBC, UA 0 TO 2 [place] Yeast, UA NOT REPORTED None [place] - [place] CBC Auto Differentialon 03-15 Basophils (Bld) [#/Vol] 10*3/uL [place] Basophils/100 WBC (Bld) 0 % 0 - 2 % [place] Differential Type NOT REPORTED [place] Eosinophils (Bld) [#/Vol] 0.25 10*3/uL [place] Eosinophils/100 WBC (Bld) 4 % 1 - 4 % [place] Erythrocyte distribution width (RBC) [Ratio] 15.0 % High 11.8 - 14.4 % [place] Hematocrit (Bld) [Volume fraction] 34.0 % Low 40.7 - 50.3 % [place] Hemoglobin (Bld) [Mass/Vol] 10.4 g/dL Low 13 - 17 g/dL [place] Immature granulocytes (Bld) [#/Vol] 1 % High 0 [place] Immature granulocytes (Bld) [#/Vol] 0.03 10*3/uL [place] Interpretation and review of laboratory results Abnormal [place] Lymphocytes (Bld) [#/Vol] 1.67 10*3/uL [place] Lymphocytes/100 WBC (Bld) 26 % 24 - 43 % [place] MCH (RBC) [Entitic mass] 27.8 pg 25.2 - 33.5 pg [place] MCHC (RBC) [Mass/Vol] 30.6 g/dL 28.4 - 34.8 g/dL [place] MCV (RBC) [Entitic vol] 90.9 fL 82.6 - 102.9 fL [place] Monocytes (Bld) [#/Vol] 0.55 10*3/uL [place] Monocytes/100 WBC (Bld) 9 % 3 - 12 % [place] Platelet mean volume (Bld) [Entitic vol] 9.1 fL 8.1 - 13.5 fL [place] Platelets (Bld) [#/Vol] NOT REPORTED [place] Platelets (Bld) [#/Vol] 248 10*3/uL [place] RBC (Bld) [#/Vol] 3.74 10*6/uL Low 4.21 - 5.77 m/uL [place] RBC morphology finding Nom (Bld) NOT REPORTED [place] Segmented neutrophils/100 WBC (Bld) 60 % 36 - 65 % [place] Segs Absolute 3.91 [place] WBC (Bld) [#/Vol] 6.4 10*3/uL [place] WBC (Bld) [#/Vol] 0.0 10*3/uL 0.0 per 100 WBC [place] WBC Morphology NOT REPORTED [place] ABDOMEN PELVIS W IV CONTR AST Additional Contrast? Oralon 04-01-2020 1. Postoperative kayla nges of the colon with moderate amount of stool in the remaining colon, which may suggest constipation. Diverticulosis without diverticulitis. 2. Diffuse urinary bladder wall thickening, which could be due to underdistention. Correlation for any signs or symptoms of cystitis is recommended. 3. Hepatic cirrhosis. Subcentimeter hypoattenuating hepatic lesions are indeterminate. 4. Nonobstructing left nephrolithiasis. [place] EXAMINATION: CT OF T HE ABDOMEN AND PELVIS WITH CONTRAST 04/01/2020 4:32 pm TECHNIQUE: CT of the abdomen and pelvis was performed with the administration of intravenous contrast. Multiplanar reformatted images are provided for review. Dose modulation, iterative reconstruction, and/or weight based adjustment of the mA/kV was utilized to reduce the radiation dose to as low as reasonably achievable. COMPARISON: None. HISTORY: ORDERING SYSTEM PROVIDED HISTORY: Fatigue, unspecified type TECHNOLOGIST PROVIDED HISTORY: weight loss, anemia, fatigue, positive fit kit FINDINGS: Lower Chest: No acute abnormality in the lower chest. Organs: There is a nodular hepatic configuration. Multiple hepatic calcifications are noted. There are subcentimeter hypoattenuating hepatic lesions, which are indeterminate. The spleen, pancreas, gallbladder, and adrenals demonstrate no acute abnormality. There is nonobstructing left nephrolithiasis. Multiple hypoattenuating right renal lesions, several of which are too small to accurately characterize. These may represent cysts. GI/Bowel: Stomach is partially distended. The small bowel is nondilated. There is evidence of prior partial colonic resection with anastomosis in the midline pelvis. The remaining colon is nondilated with moderate retained stool and scattered diverticula. Pelvis: Urinary bladder is partially distended with diffuse wall thickening. Prostate is enlarged with coarse internal calcifications. There are fat containing bilateral inguinal hernias. Peritoneum/Retroperitoneum : Atherosclerosis of the nondilated abdominal aorta. Shotty retroperitoneal and mesenteric lymph nodes. No ascites or pneumoperitoneum. Bones/Soft Tissues: Multilevel postoperative changes of the lumbar spine without acute osseous abnormality identified. There are fat containing ventral abdominal wall hernias. St. [facility] [place], [place] Wild, Mhpn Incoming R adiant Results From [facility] - 04/01/2020 5:05 PM EDT EXAMINATION: CT OF THE ABDOMEN AND PELVIS WITH CONTRAST 04/01/2020 4:32 pm TECHNIQUE: CT of the abdomen and pelvis was performed with the administration of intravenous contrast. Multiplanar reformatted images are provided for review. Dose modulation, iterative reconstruction, and/or weight based adjustment of the mA/kV was utilized to reduce the radiation dose to as low as reasonably achievable. COMPARISON: None. HISTORY: ORDERING SYSTEM PROVIDED HISTORY: Fatigue, unspecified type TECHNOLOGIST PROVIDED HISTORY: weight loss, anemia, fatigue, positive fit kit FINDINGS: Lower Chest: No acute abnormality in the lower chest. Organs: There is a nodular hepatic configuration. Multiple hepatic calcifications are noted. There are subcentimeter hypoattenuating hepatic lesions, which are indeterminate. The spleen, pancreas, gallbladder, and adrenals demonstrate no acute abnormality. There is nonobstructing left nephrolithiasis. Multiple hypoattenuating right renal lesions, several of which are too small to accurately characterize. These may represent cysts. GI/Bowel: Stomach is partially distended. The small bowel is nondilated. There is evidence of prior partial colonic resection with anastomosis in the midline pelvis. The remaining colon is nondilated with moderate retained stool and scattered diverticula. Pelvis: Urinary bladder is partially distended with diffuse wall thickening. Prostate is enlarged with coarse internal calcifications. There are fat containing bilateral inguinal hernias. Peritoneum/Retroperitoneum : Atherosclerosis of the nondilated abdominal aorta. Shotty retroperitoneal and mesenteric lymph nodes. No ascites or pneumoperitoneum. Bones/Soft Tissues: Multilevel postoperative changes of the lumbar spine without acute osseous abnormality identified. There are fat containing ventral abdominal wall hernias. IMPRESSION: 1. Postoperative changes of the colon with moderate amount of stool in the remaining colon, which may suggest constipation. Diverticulosis without diverticulitis. 2. Diffuse urinary bladder wall thickening, which could be due to underdistention. Correlation for any signs or symptoms of cystitis is recommended. 3. Hepatic cirrhosis. Subcentimeter hypoattenuating hepatic lesions are indeterminate. 4. Nonobstructing left nephrolithiasis. [place], [place] Covid-19, Antibody, Totalon 04-01-2020 SARS-CoV-2, Total Negative NEGATIVE [place] Comment on above: Negative results do not rule out SARS-CoV-2 infection, particularly in those who have been in contact with the virus. Follow-up testing with a molecular diagnostic should be considered to rule out infection in these individuals. Results from antibody testing should not be used as the sole basis to diagnose or exclude SARS-CoV-2 infection or to inform infection status. This test has been authorized by the FDA under an Emergency Use Authorization (EUA) for use by authorized laboratories. Fact sheet for Healthcare Providers: https://www.fda.gov/media/636633/download Fact sheet for Patients: https://www.fda.gov/media/870589/download METHODOLOGY: ECIA Creatinine, Serumon 03-20-20 20 Creatinine [Mass/Vol] 0.78 mg/dL 0.7 - 1.2 mg/dL [place] GFR >60 >60 mL/min [place] GFR Non- >60 >60 mL/min [place] MRI BRAIN W WO CONTRASTon Mild chronic microva scular disease without acute intracranial abnormality. No abnormal postcontrast enhancement. [place] EXAMINATION: MRI OF THE BRAIN WITHOUT AND WITH CONTRAST 03/20/2020 9:36 am TECHNIQUE: Multiplanar multisequence MRI of the head/brain was performed without and with the administration of intravenous contrast. COMPARISON: None. HISTORY: ORDERING SYSTEM PROVIDED HISTORY: Expressive aphasia FINDINGS: INTRACRANIAL STRUCTURES/VENTRICLES: The sellar and suprasellar structures, optic chiasm, corpus callosum, pineal gland, tectum, and midline brainstem structures are unremarkable. The craniocervical junction is unremarkable. There is no acute hemorrhage, mass effect, or midline shift. There is satisfactory overall ohara-white matter differentiation. There is chronic microvascular disease. The ventricular structures are symmetric and unremarkable. The infratentorial structures including the cerebellopontine angles and internal auditory canals are unremarkable. There is no abnormal restricted diffusion. There is no abnormal blooming artifact on susceptibility weighted imaging. There is no abnormal postcontrast enhancement. ORBITS: The visualized portion of the orbits demonstrate no acute abnormality. SINUSES: There is fluid in the mastoid air cells. The paranasal sinuses are normally aerated. BONES/SOFT TISSUES: The bone marrow signal intensity appears normal. The soft tissues demonstrate no acute abnormality. [place], [place] Wild, [place]hpn Incoming R adiant Results From [facility] - 03/20/2020 10:41 AM EDT EXAMINATION: MRI OF THE BRAIN WITHOUT AND WITH CONTRAST 03/20/2020 9:36 am TECHNIQUE: Multiplanar multisequence MRI of the head/brain was performed without and with the administration of intravenous contrast. COMPARISON: None. HISTORY: ORDERING SYSTEM PROVIDED HISTORY: Expressive aphasia FINDINGS: INTRACRANIAL STRUCTURES/VENTRICLES: The sellar and suprasellar structures, optic chiasm, corpus callosum, pineal gland, tectum, and midline brainstem structures are unremarkable. The craniocervical junction is unremarkable. There is no acute hemorrhage, mass effect, or midline shift. There is satisfactory overall ohara-white matter differentiation. There is chronic microvascular disease. The ventricular structures are symmetric and unremarkable. The infratentorial structures including the cerebellopontine angles and internal auditory canals are unremarkable. There is no abnormal restricted diffusion. There is no abnormal blooming artifact on susceptibility weighted imaging. There is no abnormal postcontrast enhancement. ORBITS: The visualized portion of the orbits demonstrate no acute abnormality. SINUSES: There is fluid in the mastoid air cells. The paranasal sinuses are normally aerated. BONES/SOFT TISSUES: The bone marrow signal intensity appears normal. The soft tissues demonstrate no acute abnormality. IMPRESSION: Mild chronic microvascular disease without acute intracranial abnormality. No abnormal postcontrast enhancement. [place] Metabolic Panelon 03-20-2020 GFR/1.73 sq M predicted among non-blacks MDRD (S/P/Bld) [Vol rate/Area] [place], [place] Comment on above: Average GFR for 60-6 9 years old: 85 mL/min/1.73sq m Chronic Kidney Disease: <60 mL/min/1.73sq m Kidney failure: <15 mL/min/1.73sq m eGFR calculated using average adult body mass. Additional eGFR calculator available at: http://www.Yoostay/multiple_crcl_2012.htm Stage 1: Some kidney damage normal GFR Stage 2: Mild kidney damage GFR 60-89 Stage 3: Moderate kidney damage GFR 30-59 Stage 4: Severe kidney damage GFR 15-29 Stage 5: Severe kidney damage GFR <15 ESRD - chronic treatment by dialysis or transplant Covid-19, Antibody, Totalon 03-07-2020 SARS-CoV-2, Total Negative NEGATIVE [place] Comment on above: Negative results do not rule out SARS-CoV-2 infection, particularly in those who have been in contact with the virus. Follow-up testing with a molecular diagnostic should be considered to rule out infection in these individuals. Results from antibody testing should not be used as the sole basis to diagnose or exclude SARS-CoV-2 infection or to inform infection status. This test has been authorized by the FDA under an Emergency Use Authorization (EUA) for use by authorized laboratories. Fact sheet for Healthcare Providers: https://www.fda.gov/media/821016/download Fact sheet for Patients: https://www.fda.gov/media/445505/download METHODOLOGY: ECIA Microscopic Urinalysison Amorphous, UA NOT REPORTED None [place] Bacteria, UA NOT REPORTED None [place] Casts UA NOT REPORTED /LPF [place] Crystals, UA NOT REPORTED None /HPF [place] Epithelial Cells UA None [place] Mucus, UA NOT REPORTED None [place] Other Observations UA NOT REPORTED NOT REQ. [place] RBC (U) [#/Vol] None [place] Renal Epithelial, UA NOT REPORTED 0 /HPF [place], [place] Trichomonas, UA NOT REPORTED None [place] WBC, UA 0 TO 2 [place] Yeast, UA NOT REPORTED None [place] Urinalysison 03-05-2020 Bilirubin Urine Negative NEGATIVE [place] Color, UA YELLOW YELLOW [place] Glucose, Ur Negative NEGATIVE [place] Interpretation and review of laboratory results Abnormal [place] Ketones Ql (U) Negative NEGATIVE [place] Leukocyte esterase Test strip Ql (U) Negative NEGATIVE [place] Nitrite, Urine Negative NEGATIVE [place] pH, UA 6.5 [place] Protein (U) [Mass/Vol] TRACE Abnormal NEGATIVE [place], [place] Specific [place], UA 1.020 [place], [place] Turbidity UA CLEAR CLEAR [place] Urinalysis Comments NOT REPORTED [place] Urine Hgb Negative NEGATIVE [place] Urobilinogen, Urine Normal Normal [place] Basic Metabolic Panelon 02-12 Anion gap [Moles/Vol] 14 mmol/L 9 - 17 mmol/L [place] Bun/Cre Ratio 13 [place] Calcium [Mass/Vol] 9.9 mg/dL 8.6 - 10. 4 mg/dL [place] Chloride [Moles/Vol] 96 mmol/L Low 98 - 10 7 mmol/L [place] CO2 [Moles/Vol] 25 mmol/L 20 - 31 mmol/L [place] Creatinine [Mass/Vol] 0.79 mg/dL 0.7 - 1.2 mg/dL [place] GFR >60 >60 mL/min [place] GFR Non- >60 >60 mL/min [place] Glucose [Mass/Vol] 230 mg/dL High 70 - 99 mg/dL [place] Interpretation and review of laboratory results Abnormal [place] Potassium [Moles/Vol] 3.6 mmol/L Low 3.7 - 5.3 mmol/L [place] Sodium [Moles/Vol] 135 mmol/L 135 - 144 mmol/L [place] Urea nitrogen [Mass/Vol] 10 mg/dL 8 - 23 mg/dL [place] CBCon 02-27-2020 Erythrocyte distribution width (RBC) [Ratio] 13.5 % 11.8 - 14.4 % [place] Hematocrit (Bld) [Volume fraction] 35.3 % Low 40.7 - 50.3 % [place] Hemoglobin (Bld) [Mass/Vol] 11.1 g/dL Low 13 - 17 g/dL [place] Interpretation and review of laboratory results Abnormal [place] MCH (RBC) [Entitic mass] 29.2 pg 25.2 - 33.5 pg [place] MCHC (RBC) [Mass/Vol] 31.4 g/dL 28.4 - 34.8 g/dL [place] MCV (RBC) [Entitic vol] 92.9 fL 82.6 - 102.9 fL [place] Platelet mean volume (Bld) [Entitic vol] 8.9 fL 8.1 - 13.5 fL [place] Platelets (Bld) [#/Vol] 379 10*3/uL [place] RBC (Bld) [#/Vol] 3.80 10*6/uL Low 4.21 - 5.77 m/uL [place] WBC (Bld) [#/Vol] 0.0 10*3/uL 0.0 per 100 WBC [place] WBC (Bld) [#/Vol] 6.7 10*3/uL [place] Hemoglobin A1Con 02-27-2020 Glucose [Mass/Vol] 160 mg/dL [place] Comment on above: The ADA and AACC rec ommend providing the estimated average glucose result to permit better patient understanding of their HBA1c result. HbA1c (Bld) [Mass fraction] 7.2 % High 4.8 - 5.9 % [place] Interpretation and review of laboratory results Abnormal [place] Lipid Panelon 02-27-2020 Cholesterol [Mass/Vol] 143 mg/dL <200 Me [place], [place] Comment on above: Cholesterol Guidelines: <200 Desirable 200-240 Borderline >240 Undesirable Cholesterol in HDL [Mass/Vol] 44 mg/dL >40 [place] Comment on above: HDL Guidelines: <40 Undesirable 40-59 Borderline >59 Desirable Cholesterol in LDL [Mass/Vol] 71 mg/dL 0 - 130 mg/dL [place] Comment on above: LDL Guidelines: <100 Desirable 100-129 Near to/above Desirable 130-159 Borderline >159 Undesirable Direct (measured) LDL and calculated LDL are not interchangeable tests. Cholesterol in VLDL [Mass/Vol] NOT REPORTED 1 - 30 mg/dL [place] Cholesterol.total/Chol esterol in HDL [Mass ratio] 3.3 {ratio} <5 [place] Triglyceride [Mass/Vol] 142 mg/dL <150 [place] Comment on above: Triglyceride Guidelines: <150 Desirable 150-199 Borderline 200-499 High >499 Very high Based on AHA Guidelines for fasting triglyceride, May 2012. Metabolic Panelon 02-27-2020 GFR/1.73 sq M predicted among non-blacks MDRD (S/P/Bld) [Vol rate/Area] [place], [place] Comment on above: Average GFR for 60-6 9 years old: 85 mL/min/1.73sq m Chronic Kidney Disease: <60 mL/min/1.73sq m Kidney failure: <15 mL/min/1.73sq m eGFR calculated using average adult body mass. Additional eGFR calculator available at: http://www.Buzzoek.com/multiple_crcl_2012.htm Stage 1: Some kidney damage normal GFR Stage 2: Mild kidney damage GFR 60-89 Stage 3: Moderate kidney damage GFR 30-59 Stage 4: Severe kidney damage GFR 15-29 Stage 5: Severe kidney damage GFR <15 ESRD - chronic treatment by dialysis or transplant XR CHEST STANDARD (2 VW)on 0 02-27-2020 No acute process. [facility] [place] EXAMINATION: TWO XRA Y VIEWS OF THE CHEST 02/27/2020 3:44 pm COMPARISON: Chest August 31, 2016. HISTORY: ORDERING SYSTEM PROVIDED HISTORY: Shortness of breath TECHNOLOGIST PROVIDED HISTORY: shortness of breath FINDINGS: The lungs are without acute focal process. There is no effusion or pneumothorax. The cardiomediastinal silhouette is without acute process. The osseous structures demonstrate degenerative change. [facility] [place], [place] Incoming R adiant Results From [facility] - 02/27/2020 3:57 PM EDT EXAMINATION: TWO XRAY VIEWS OF THE CHEST 02/27/2020 3:44 pm COMPARISON: Chest August 31, 2016. HISTORY: ORDERING SYSTEM PROVIDED HISTORY: Shortness of breath TECHNOLOGIST PROVIDED HISTORY: shortness of breath FINDINGS: The lungs are without acute focal process. There is no effusion or pneumothorax. The cardiomediastinal silhouette is without acute process. The osseous structures demonstrate degenerative change. IMPRESSION: No acute process. [facility] [place] Covid-19, Antibody, Totalon 02-20-2020 SARS-CoV-2, Total Negative NEGATIVE [facility] [place] Comment on above: Negative results do not rule out SARS-CoV-2 infection, particularly in those who have been in contact with the virus. Follow-up testing with a molecular diagnostic should be considered to rule out infection in these individuals. Results from antibody testing should not be used as the sole basis to diagnose or exclude SARS-CoV-2 infection or to inform infection status. This test has been authorized by the FDA under an Emergency Use Authorization (EUA) for use by authorized laboratories. Fact sheet for Healthcare Providers: https://www.fda.gov/media/228532/download Fact sheet for Patients: https://www.fda.gov/media/962942/download METHODOLOGY: ECIA Basic Metabolic Panelon 12-13 Anion gap [Moles/Vol] 14 mmol/L 9 - 17 mmol/L [place] Bun/Cre Ratio 18 [place] Calcium [Mass/Vol] 9.8 mg/dL 8.6 - 10. 4 mg/dL [place] Chloride [Moles/Vol] 98 mmol/L 98 - 10 7 mmol/L [place] CO2 [Moles/Vol] 25 mmol/L 20 - 31 mmol/L [place] Creatinine [Mass/Vol] 0.72 mg/dL 0.7 - 1.2 mg/dL [place] GFR >60 >60 mL/min [place] GFR Non- >60 >60 mL/min [place] Glucose [Mass/Vol] 114 mg/dL High 70 - 99 mg/dL [place] Interpretation and review of laboratory results Abnormal [place] Potassium [Moles/Vol] 4.6 mmol/L 3.7 - 5.3 mmol/L [place] Sodium [Moles/Vol] 137 mmol/L 135 - 144 mmol/L [place] Urea nitrogen [Mass/Vol] 13 mg/dL 8 - 23 mg/dL [place] CBC Auto Differentialon 12-13 Basophils (Bld) [#/Vol] 0.03 10*3/uL [place] Basophils/100 WBC (Bld) 1 % 0 - 2 % [place] Differential Type NOT REPORTED [place] Eosinophils (Bld) [#/Vol] 0.23 10*3/uL [place] Eosinophils/100 WBC (Bld) 4 % 1 - 4 % [place] Erythrocyte distribution width (RBC) [Ratio] 17.3 % High 11.8 - 14.4 % [place] Hematocrit (Bld) [Volume fraction] 44.0 % 40.7 - 50.3 % [place] Hemoglobin (Bld) [Mass/Vol] 14.3 g/dL 13 - 17 g/dL [place] Immature granulocytes (Bld) [#/Vol] 0 % 0 [place] Immature granulocytes (Bld) [#/Vol] 10*3/uL [place] Interpretation and review of laboratory results Abnormal [place] Lymphocytes (Bld) [#/Vol] 1.95 10*3/uL [place] Lymphocytes/100 WBC (Bld) 36 % 24 - 43 % [place] MCH (RBC) [Entitic mass] 30.0 pg 25.2 - 33.5 pg [place] MCHC (RBC) [Mass/Vol] 32.5 g/dL 28.4 - 34.8 g/dL [place] MCV (RBC) [Entitic vol] 92.4 fL 82.6 - 102.9 fL [place] Monocytes (Bld) [#/Vol] 0.63 10*3/uL [place] Monocytes/100 WBC (Bld) 12 % 3 - 12 % [place] Platelet mean volume (Bld) [Entitic vol] 9.7 fL 8.1 - 13.5 fL [place] Platelets (Bld) [#/Vol] NOT REPORTED [place] Platelets (Bld) [#/Vol] 162 10*3/uL [place] RBC (Bld) [#/Vol] 4.76 10*6/uL 4.21 - 5.77 m/uL [place] RBC morphology finding Nom (Bld) NOT REPORTED [place] Segmented neutrophils/100 WBC (Bld) 47 % 36 - 65 % [place] Segs Absolute 2.58 [place] WBC (Bld) [#/Vol] 5.4 10*3/uL [place] WBC (Bld) [#/Vol] 0.0 10*3/uL 0.0 per 100 WBC [place] WBC Morphology NOT REPORTED [place] EKG 12 Leadon 01-01-2020 Atrial Rate 85 BPM [place] P Maryneal 30 degrees [place] P-R Interval 184 ms [place] Q-T Interval 382 ms [place] QRS Duration 94 ms [place] QTc Calculation (Bazett) 454 ms [place] R [place] -9 degrees [place] T Maryne[place] 2 degrees [place] Ventricular Rate 85 BPM [place] Normal sinus rhythm Septal infarct , age undetermined Abnormal ECG When compared with ECG of 20-JAN-2016 12:26, No significant change was found Confirmed by SANTANA BARNES ([id number]) on 01/01/2020 4:32:29 PM [place] Wild, [place]hpn Incoming E kg Results From [facility] - 01/01/2020 4:32 PM EDT Normal sinus rhythm Septal infarct , age undetermined Abnormal ECG When compared with ECG of 20-JAN-2016 12:26, No significant change was found Confirmed by SANTANA BARNES ([id number]) on 01/01/2020 4:32:29 PM [place] Hemoglobin A1Con 01-01-2020 Glucose [Mass/Vol] 128 mg/dL [place] Comment on above: The ADA and AACC rec ommend providing the estimated average glucose result to permit better patient understanding of their HBA1c result. HbA1c (Bld) [Mass fraction] 6.1 % High 4.8 - 5.9 % [place] Interpretation and review of laboratory results Abnormal [place] Metabolic Panelon 01-01-2020 GFR/1.73 sq M predicted among non-blacks MDRD (S/P/Bld) [Vol rate/Area] [place] Comment on above: Stage 1: Some kidney damage normal GFR Stage 2: Mild kidney damage GFR 60-89 Stage 3: Moderate kidney damage GFR 30-59 Stage 4: Severe kidney damage GFR 15-29 Stage 5: Severe kidney damage GFR <15 ESRD - chronic treatment by dialysis or transplant Average GFR for 60-6 9 years old: 85 mL/min/1.73sq m Chronic Kidney Disease: <60 mL/min/1.73sq m Kidney failure: <15 mL/min/1.73sq m eGFR calculated using average adult body mass. Additional eGFR calculator available at: http://www.Yoostay/multiple_crcl_2012.htm T3, on 01-01-2020 Free T3 [Mass/Vol] 2.96 pg/mL 2.02 - 4.43 pg/mL [place] T4, Free01-01-2020 Thyroxine, Free 1.45 ng/dL 0.93 - 1.7 ng/dL [place] TSH without Reflexon 020 TSH Qn 2.41 m[IU]/L [place] In[place] 11-28-2019 ALT [Catalytic activity/Vol] 29 U/L 5 - 41 U/L [place] Barry 11-28-2019 AST [Catalytic activity/Vol] 36 U/L <40 [place] Basic Metabolic Panelon 11-13 Anion gap [Moles/Vol] 15 mmol/L 9 - 17 mmol/L [place] Bun/Cre Ratio 16 [place] Calcium [Mass/Vol] 9.1 mg/dL 8.6 - 10. 4 mg/dL [place] Chloride [Moles/Vol] 98 mmol/L 98 - 10 7 mmol/L [place] CO2 [Moles/Vol] 22 mmol/L 20 - 31 mmol/L [place] Creatinine [Mass/Vol] 0.69 mg/dL Low 0.7 - 1.2 mg/dL [place] GFR >60 >60 mL/min [place] GFR Non- >60 >60 mL/min [place] Glucose [Mass/Vol] 214 mg/dL High 70 - 99 mg/dL [place] Interpretation and review of laboratory results Abnormal [place] Potassium [Moles/Vol] 3.9 mmol/L 3.7 - 5.3 mmol/L [place] Sodium [Moles/Vol] 135 mmol/L 135 - 144 mmol/L [place] Urea nitrogen [Mass/Vol] 11 mg/dL 8 - 23 mg/dL [place] CBCon 11-28-2019 Erythrocyte distribution width (RBC) [Ratio] 16.5 % High 11.8 - 14.4 % [place] Hematocrit (Bld) [Volume fraction] 40.0 % Low 40.7 - 50.3 % [place] Hemoglobin (Bld) [Mass/Vol] 12.6 g/dL Low 13 - 17 g/dL [place] Interpretation and review of laboratory results Abnormal [place] MCH (RBC) [Entitic mass] 28.4 pg 25.2 - 33.5 pg [place] MCHC (RBC) [Mass/Vol] 31.5 g/dL 28.4 - 34.8 g/dL [place] MCV (RBC) [Entitic vol] 90.3 fL 82.6 - 102.9 fL [place] Platelet mean volume (Bld) [Entitic vol] 10.0 fL 8.1 - 13.5 fL [place] Platelets (Bld) [#/Vol] 153 10*3/uL [place] RBC (Bld) [#/Vol] 4.43 10*6/uL 4.21 - 5.77 m/uL [place] WBC (Bld) [#/Vol] 5.0 10*3/uL [place] WBC (Bld) [#/Vol] 0.0 10*3/uL 0.0 per 100 WBC [place] Hemoglobin A1Con 11-28-2019 Glucose [Mass/Vol] 137 mg/dL [place] Comment on above: The ADA and AACC rec ommend providing the estimated average glucose result to permit better patient understanding of their HBA1c result. HbA1c (Bld) [Mass fraction] 6.4 % High 4.8 - 5.9 % [place] Interpretation and review of laboratory results Abnormal [place] Lipid Panelon 11-28-2019 Cholesterol [Mass/Vol] 161 mg/dL <200 Me [place] Comment on above: Cholesterol Guidelines: <200 Desirable 200-240 Borderline >240 Undesirable Cholesterol in HDL [Mass/Vol] 58 mg/dL >40 [place] Comment on above: HDL Guidelines: <40 Undesirable 40-59 Borderline >59 Desirable Cholesterol in LDL [Mass/Vol] 84 mg/dL 0 - 130 mg/dL [place] Comment on above: LDL Guidelines: <100 Desirable 100-129 Near to/above Desirable 130-159 Borderline >159 Undesirable Direct (measured) LDL and calculated LDL are not interchangeable tests. Cholesterol in VLDL [Mass/Vol] NOT REPORTED 1 - 30 mg/dL [place] Cholesterol.total/Chol esterol in HDL [Mass ratio] 2.8 {ratio} <5 [place] Triglyceride [Mass/Vol] 93 mg/dL <150 [place] Comment on above: Triglyceride Guidelines: <150 Desirable 150-199 Borderline 200-499 High >499 Very high Based on AHA Guidelines for fasting triglyceride, May 2012. Metabolic Panelon 11-28-2019 GFR/1.73 sq M predicted among non-blacks MDRD (S/P/Bld) [Vol rate/Area] [place] Comment on above: Average GFR for 60-6 9 years old: 85 mL/min/1.73sq m Chronic Kidney Disease: <60 mL/min/1.73sq m Kidney failure: <15 mL/min/1.73sq m eGFR calculated using average adult body mass. Additional eGFR calculator available at: http://www.Yoostay/multiple_crcl_2012.htm Stage 1: Some kidney damage normal GFR Stage 2: Mild kidney damage GFR 60-89 Stage 3: Moderate kidney damage GFR 30-59 Stage 4: Severe kidney damage GFR 15-29 Stage 5: Severe kidney damage GFR <15 ESRD - chronic treatment by dialysis or transplant Microalbumin, Uron 0 Albumin/Creatinine DL <= 20 mg/L (24H U) [Mass ratio] 22 mg/L High <21 [place] Albumin/Creatinine DL <= 20 mg/L (U) [Ratio] 26 High <17 mcg/mg creat [place] Creatinine [Mass/Vol] 85.8 mg/dL 39 - 2 59 mg/dL [place] Interpretation and review of laboratory results Abnormal [place] T3, Freeon 11-28-2019 Free T3 [Mass/Vol] 2.93 pg/mL 2.02 - 4.43 pg/mL [place] T4, Freeon 11-28-2019 Thyroxine, Free 1.25 ng/dL 0.93 - 1.7 ng/dL [place] TSH without Reflexon 020 Interpretation and review of laboratory results Abnormal [place] TSH Qn 8.94 m[IU]/L High [place] CBC With Auto Differentialon 07-06-2019 Basophils (Bld) [#/Vol] 10*3/uL [place] Basophils/100 WBC (Bld) 0 % 0 - 2 % [place] Differential Type NOT REPORTED [place] Eosinophils (Bld) [#/Vol] 0.29 10*3/uL [place] Eosinophils/100 WBC (Bld) 6 % High 1 - 4 % [place] Erythrocyte distribution width (RBC) [Ratio] 14.4 % 11.8 - 14.4 % [place] Hematocrit (Bld) [Volume fraction] 37.3 % Low 40.7 - 50.3 % [place] Hemoglobin (Bld) [Mass/Vol] 11.7 g/dL Low 13 - 17 g/dL [place] Immature granulocytes (Bld) [#/Vol] 0 % 0 [place] Immature granulocytes (Bld) [#/Vol] 10*3/uL [place] Interpretation and review of laboratory results Abnormal [place] Lymphocytes (Bld) [#/Vol] 1.36 10*3/uL [place] Lymphocytes/100 WBC (Bld) 27 % 24 - 43 % [place] MCH (RBC) [Entitic mass] 29.6 pg 25.2 - 33.5 pg [place] MCHC (RBC) [Mass/Vol] 31.4 g/dL 28.4 - 34.8 g/dL [place] MCV (RBC) [Entitic vol] 94.4 fL 82.6 - 102.9 fL [place] Monocytes (Bld) [#/Vol] 0.45 10*3/uL [place] Monocytes/100 WBC (Bld) 9 % 3 - 12 % [place] Platelet mean volume (Bld) [Entitic vol] 9.6 fL 8.1 - 13.5 fL [place] Platelets (Bld) [#/Vol] 157 10*3/uL [place] Platelets (Bld) [#/Vol] NOT REPORTED [place] RBC (Bld) [#/Vol] 3.95 10*6/uL Low 4.21 - 5.77 m/uL [place] RBC morphology finding Nom (Bld) NOT REPORTED [place] Segmented neutrophils/100 WBC (Bld) 58 % 36 - 65 % [place] Segs Absolute 2.97 [place] WBC (Bld) [#/Vol] 5.1 10*3/uL [place] WBC (Bld) [#/Vol] 0.0 10*3/uL 0.0 per 100 WBC [place] WBC Morphology NOT REPORTED [place] Inez 05-21-2019 ALT [Catalytic activity/Vol] 24 U/L 5 - 41 U/L [place] Barry 05-21-2019 AST [Catalytic activity/Vol] 29 U/L <40 [place] Basic Metabolic Panelon 10-0 Anion gap [Moles/Vol] 15 mmol/L 9 - 17 mmol/L [place] Bun/Cre Ratio 21 High [place] Calcium [Mass/Vol] 9.6 mg/dL 8.6 - 10. 4 mg/dL [place] Chloride [Moles/Vol] 101 mmol/L 98 - 10 7 mmol/L [place] CO2 [Moles/Vol] 24 mmol/L 20 - 31 mmol/L [place] Creatinine [Mass/Vol] 0.63 mg/dL Low 0.7 - 1.2 mg/dL [place] GFR >60 >60 mL/min [place] GFR Non- >60 >60 mL/min [place] Glucose [Mass/Vol] 152 mg/dL High 70 - 99 mg/dL [place] Interpretation and review of laboratory results Abnormal [place] Potassium [Moles/Vol] 3.8 mmol/L 3.7 - 5.3 mmol/L [place] Sodium [Moles/Vol] 140 mmol/L 135 - 144 mmol/L [place] Urea nitrogen [Mass/Vol] 13 mg/dL 8 - 23 mg/dL [place] CBC Auto Differentialon 10-0 Basophils (Bld) [#/Vol] 10*3/uL [place] Basophils/100 WBC (Bld) 0 % 0 - 2 % [place] Differential Type NOT REPORTED [place] Eosinophils (Bld) [#/Vol] 0.20 10*3/uL [place] Eosinophils/100 WBC (Bld) 4 % 1 - 4 % [place] Erythrocyte distribution width (RBC) [Ratio] 14.2 % 11.8 - 14.4 % [place] Hematocrit (Bld) [Volume fraction] 39.6 % Low 40.7 - 50.3 % [place] Hemoglobin (Bld) [Mass/Vol] 12.6 g/dL Low 13 - 17 g/dL [place] Immature granulocytes (Bld) [#/Vol] 10*3/uL [place] Immature granulocytes (Bld) [#/Vol] 0 % 0 [place] Interpretation and review of laboratory results Abnormal [place] Lymphocytes (Bld) [#/Vol] 1.97 10*3/uL [place] Lymphocytes/100 WBC (Bld) 39 % 24 - 43 % [place] MCH (RBC) [Entitic mass] 29.0 pg 25.2 - 33.5 pg [place] MCHC (RBC) [Mass/Vol] 31.8 g/dL 28.4 - 34.8 g/dL [place] MCV (RBC) [Entitic vol] 91.2 fL 82.6 - 102.9 fL [place] Monocytes (Bld) [#/Vol] 0.48 10*3/uL [place] Monocytes/100 WBC (Bld) 9 % 3 - 12 % [place] Platelet mean volume (Bld) [Entitic vol] 9.5 fL 8.1 - 13.5 fL [place] Platelets (Bld) [#/Vol] NOT REPORTED [place] Platelets (Bld) [#/Vol] 155 10*3/uL [place] RBC (Bld) [#/Vol] 4.34 10*6/uL 4.21 - 5.77 m/uL [place] RBC morphology finding Nom (Bld) NOT REPORTED [place] Segmented neutrophils/100 WBC (Bld) 48 % 36 - 65 % [place] Segs Absolute 2.44 [place] WBC (Bld) [#/Vol] 0.0 10*3/uL 0.0 per 100 WBC [place] WBC (Bld) [#/Vol] 5.1 10*3/uL [place] WBC Morphology NOT REPORTED [place] Hemoglobin A1Con 05-21-2019 Glucose [Mass/Vol] 128 mg/dL [place] Comment on above: The ADA and AACC rec ommend providing the estimated average glucose result to permit better patient understanding of their HBA1c result. HbA1c (Bld) [Mass fraction] 6.1 % High 4.8 - 5.9 % [place] Interpretation and review of laboratory results Abnormal [place] Lipid Panelon 05-21-2019 Cholesterol [Mass/Vol] 143 mg/dL <200 [place] Comment on above: Cholesterol Guidelines: <200 Desirable 200-240 Borderline >240 Undesirable Cholesterol in HDL [Mass/Vol] 81 mg/dL >40 [place] Comment on above: HDL Guidelines: <40 Undesirable 40-59 Borderline >59 Desirable Cholesterol in LDL [Mass/Vol] 44 mg/dL 0 - 130 mg/dL [place] Comment on above: LDL Guidelines: <100 Desirable 100-129 Near to/above Desirable 130-159 Borderline >159 Undesirable Direct (measured) LDL and calculated LDL are not interchangeable tests. Cholesterol in VLDL [Mass/Vol] NOT REPORTED 1 - 30 mg/dL [place] Cholesterol.total/Chol esterol in HDL [Mass ratio] 1.8 {ratio} <5 [place] Triglyceride [Mass/Vol] 88 mg/dL <150 [place] Comment on above: Triglyceride Guidelines: <150 Desirable 150-199 Borderline 200-499 High >499 Very high Based on AHA Guidelines for fasting triglyceride, May 2012. Metabolic Panelon 05-21-2019 GFR/1.73 sq M predicted among non-blacks MDRD (S/P/Bld) [Vol rate/Area] [place] Comment on above: Average GFR for 60-6 9 years old: 85 mL/min/1.73sq m Chronic Kidney Disease: <60 mL/min/1.73sq m Kidney failure: <15 mL/min/1.73sq m eGFR calculated using average adult body mass. Additional eGFR calculator available at: http://www.Yoostay/multiple_crcl_2012.htm Stage 1: Some kidney damage normal GFR Stage 2: Mild kidney damage GFR 60-89 Stage 3: Moderate kidney damage GFR 30-59 Stage 4: Severe kidney damage GFR 15-29 Stage 5: Severe kidney damage GFR <15 ESRD - chronic treatment by dialysis or transplant Microalbumin, Uron 9 Albumin/Creatinine DL <= 20 mg/L (24H U) [Mass ratio] 13 mg/L <21 [place] Albumin/Creatinine DL <= 20 mg/L (U) [Ratio] 20 High <17 mcg/mg creat [place] Creatinine [Mass/Vol] 66.4 mg/dL 39 - 2 59 mg/dL [place] Interpretation and review of laboratory results Abnormal [place] T3, Freeon 05-21-2019 Free T3 [Mass/Vol] 3.24 pg/mL 2.02 - 4.43 pg/mL [place] T4, Freeon 05-21-2019 Thyroxine, Free 1.20 ng/dL 0.93 - 1.7 ng/dL [facility] 019 Interpretation and review of laboratory results [facility]n 5.23 m[IU]/L [facility] Vital Signs Date Time Vital Sign Value Performing Clinician Facility 09-24-2024 11:22-0500 Body height 172.7 cm Alex Newman MD Work Phone: [facility] 09-24-2024 11:22-0500 Body mass index (BMI) [Ratio] 27.83 kg/m2 Alex Newman MD Work Phone: [facility] 09-24-2024 11:22-050 Body weight 83.01 kg Alex Newman MD Work Phone: [facility] 09-24-2024 11:22-0500 Diastolic blood pressure 79 mm[Hg] Alex Newman MD Work Phone: [facility] 09-24-2024 11:22-0500 Heart rate 88 /min Alex Newman MD Work Phone: [facility] 09-24-2024 11:22-0500 Systolic blood pressure 153 mm[Hg] Alex Newman MD Work Phone: [facility] 09-13-2024 09:27-0500 Diastolic blood pressure 76 mm[Hg] Dina Lue [facility] 09-13-2024 09:27-0500 Heart rate 86 /min Dina Lue [facility] 09-13-2024 09:27-0500 Respiratory rate 16 /min Dina Lue [facility] 09-13-2024 09:27-0500 Systolic blood pressure 120 mm[Hg] Dina Lue [facility] 09-11-2024 14:02-0500 Body height 172.7 cm Ankit Khan MD Work Phone: [facility] 09-11-2024 14:02-0500 Body mass index (BMI) [Ratio] 29.8 kg/m2 Ankit Khan MD Work Phone: [facility] 09-11-2024 14:02-0500 Body temperature 97.5 [degF] Ankit Khan MD Work Phone: [facility] 09-11-2024 14:02-0500 Body weight 88.91 kg Ankit Khan MD Work Phone: [facility] 09-11-2024 14:02-0500 Diastolic blood pressure 70 mm[Hg] Ankit Khan MD Work Phone: [facility] 09-11-2024 14:02-0500 Heart rate 94 /min Ankit Khan MD Work Phone: [facility] 09-11-2024 14:02-0500 Respiratory rate 20 /min Ankit Khan MD Work Phone: [facility] 09-11-2024 14:02-0500 SaO2% (BldA) [Mass fraction] 99 % Ankit Khan MD Work Phone: [facility] 09-11-2024 14:02-0500 Systolic blood pressure 152 mm[Hg] Ankit Khan MD Work Phone: [facility] 06-22-2024 09:37-0500 Body temperature 97.7 [degF] Dina Lue [facility] 06-22-2024 09:37-0500 Diastolic blood pressure 72 mm[Hg] Dina Lue [facility] 06-22-2024 09:37-0500 Heart rate 82 /min Dina Lue [facility] 06-22-2024 09:37-0500 Respiratory rate 16 /min Dina Ortiz [facility] 06-22-2024 09:37-0500 Systolic blood pressure 138 mm[Hg] Dina Ortiz [facility] 05-29-2024 10:34-0400 Body height 172.7 cm Ankit Khan MD Work Phone: [facility] 05-29-2024 10:34-0400 Body mass index (BMI) [Ratio] 28.74 kg/m2 Ankit Khan MD Work Phone: [facility] 05-29-2024 10:34-0400 Body temperature 97.11 [degF] Ankit Khan MD Work Phone: [facility] 05-29-2024 10:34-0400 Body weight 85.73 kg Ankit Khan MD Work Phone: [facility] 05-29-2024 10:34-0400 Diastolic blood pressure 74 mm[Hg] Ankit Khan MD Work Phone: [facility] 05-29-2024 10:34-0400 Heart rate 110 /min Ankit Khan MD Work Phone: [facility] 05-29-2024 10:34-0400 Respiratory rate 18 /min Ankit Khan MD Work Phone: [facility] 05-29-2024 10:34-0400 SaO2% (BldA) [Mass fraction] 99 % Ankit Khan MD Work Phone: [facility] 05-29-2024 10:34-0400 Systolic blood pressure 156 mm[Hg] Ankit Khan MD Work Phone: [facility] 04-19-2024 13:14-0400 Body height 172.72 cm MD Ankit Khan Work Phone: [facility] 04-19-2024 13:14-0400 Body mass index (BMI) [Ratio] 28.4 kg/m2 MD Ankit Khan Work Phone: [facility] 04-19-2024 13:14-0400 Body temperature 98.1 [degF] MD Anikt Khan Work Phone: [facility] 04-19-2024 13:14-0400 Body weight 84.87 kg MD Ankit Khan Work Phone: [facility] 04-19-2024 13:14-0400 Diastolic blood pressure 82 mm[Hg] MD Ankit Khan Work Phone: [facility] 04-19-2024 13:14-0400 Heart rate 92 /min MD Ankit Khan Work Phone: [facility] 04-19-2024 13:14-0400 Respiratory rate 18 /min MD Ankit Khan Work Phone: [facility] 04-19-2024 13:14-0400 SaO2% (BldA) [Mass fraction] 99 % MD Ankit Khan Work Phone: [facility] 04-19-2024 13:14-0400 Systolic blood pressure 130 mm[Hg] MD Ankit Khan Work Phone: [facility] 04-19-2024 08:39-0400 Body height 175.26 cm MD Ankit Khan Work Phone: [facility] 04-19-2024 08:39-0400 Body mass index (BMI) [Ratio] 27.7 kg/m2 MD Ankit Khan Work Phone: [facility] 04-19-2024 08:39-0400 Body weight 85.27 kg MD Ankit Khan Work Phone: [facility] 04-19-2024 08:39-0400 Diastolic blood pressure 123 mm[Hg] MD Ankit Khan Work Phone: [facility] 04-19-2024 08:39-0400 Heart rate 100 /min MD Ankit Khan Work Phone: [facility] 04-19-2024 08:39-0400 Systolic blood pressure 165 mm[Hg] MD Ankit Khan Work Phone: [facility] 02-21-2024 13:22-0400 Body height 175.3 cm Pac 2 Work Phone: [facility] 02-21-2024 13:22-0400 Body mass index (BMI) [Ratio] 27.02 kg/m2 Pac 2 Work Phone: [facility] 02-21-2024 13:22-0400 Body weight 83.01 kg Pacc 2 Work Phone: [facility] 02-21-2024 13:22-0400 Respiratory rate 16 /min Pac 2 Work Phone: [facility] 01-23-2024 15:55-0400 Body height 172.7 cm [facility] 01-23-2024 15:55-0400 Body mass index (BMI) [Ratio] 27.83 kg/m2 [facility] 01-23-2024 15:55-0400 Body weight 83.01 kg [facility] 09-22-2023 10:09-0500 Body height 172.7 cm Sarmad Finley MD Work Phone: [facility] 09-22-2023 10:09-0500 Body mass index (BMI) [Ratio] 29.4 kg/m2 Sarmad Finley MD Work Phone: [facility] 09-22-2023 10:09-0500 Body temperature 97 [degF] Sarmad Finley MD Work Phone: [facility] 09-22-2023 10:09-0500 Body weight 87.68 kg Sarmad Finley MD Work Phone: [facility] 09-22-2023 10:09-0500 Diastolic blood pressure 78 mm[Hg] Sarmad Finley MD Work Phone: [facility] 09-22-2023 10:09-0500 Heart rate 85 /min Sarmad Finley MD Work Phone: [facility] 09-22-2023 10:09-0500 Respiratory rate 18 /min Sarmad Finley MD Work Phone: [facility] 09-22-2023 10:09-0500 SaO2% (BldA) [Mass fraction] 96 % Sarmad Finley MD Work Phone: [facility] 09-22-2023 10:09-0500 Systolic blood pressure 160 mm[Hg] Sarmad Finley MD Work Phone: [facility] 09-21-2023 14:52-0500 Diastolic blood pressure 103 mm[Hg] Yary Fernando MD Work Phone: [facility] 09-21-2023 14:52-0500 Heart rate 93 /min Yary Fernando MD Work Phone: [facility] 09-21-2023 14:52-0500 Systolic blood pressure 172 mm[Hg] Yary Fernando MD Work Phone: [facility] 08-03-2023 10:57-0500 Blood Pressure Location Dina Lue [facility] 08-03-2023 10:57-0500 Diastolic blood pressure 79 mm[Hg] Dina Lue [facility] 08-03-2023 10:57-0500 Heart rate 80 /min Dina Lue [facility] 08-03-2023 10:57-0500 Respiratory rate 16 /min Dina Lue [facility] 08-03-2023 10:57-0500 Systolic blood pressure 132 mm[Hg] Dina Lue [facility] 05-26-2023 13:26-0400 Blood Pressure Location Dina Lue [facility] 05-26-2023 13:26-0400 Diastolic blood pressure 82 mm[Hg] Dina Lue [facility] 05-26-2023 13:26-0400 Heart rate 73 /min Dina Lue [facility] 05-26-2023 13:26-0400 Systolic blood pressure 132 mm[Hg] Dina Lue [facility] 06-24-2022 15:12-0500 Blood Pressure Location YARA MELANIE [facility] 06-24-2022 15:12-0500 Diastolic blood pressure 74 mm[Hg] YARA MELANIE [facility] 06-24-2022 15:12-0500 Heart rate 111 /min YARA MELANIE [facility] 06-24-2022 15:12-0500 Systolic blood pressure 157 mm[Hg] YARA MELANIE [facility] 02-18-2022 13:07-0400 Body temperature 96.8 [degF] Sarmad Finley MD Work Phone: [facility] 02-18-2022 13:07-0400 Diastolic blood pressure 73 mm[Hg] Sarmad Finley MD Work Phone: [facility] 02-18-2022 13:07-0400 Heart rate 89 /min Sarmad Finley MD Work Phone: [facility] 02-18-2022 13:07-0400 Respiratory rate 16 /min Sarmad Finley MD Work Phone: [facility] 02-18-2022 13:07-0400 SaO2% (BldA) [Mass fraction] 95 % Sarmad Finley MD Work Phone: [facility] 02-18-2022 13:07-0400 Systolic blood pressure 130 mm[Hg] Sarmad Finley MD Work Phone: [facility] 02-17-2022 10:12-0400 Blood Pressure Location Dina Lue [facility] 02-17-2022 10:12-0400 Diastolic blood pressure 88 mm[Hg] Dina Lue [facility] 02-17-2022 10:12-0400 Heart rate 74 /min Dina Lue [facility] 02-17-2022 10:12-0400 Respiratory rate 16 /min Dina Lue [facility] 02-17-2022 10:12-0400 Systolic blood pressure 125 mm[Hg] Dina Lue [facility] 02-11-2022 13:19-0400 Body height 172.72 cm [employer] FINISHER Shira Johnson Work Phone: [facility] 02-11-2022 13:19-0400 Body mass index (BMI) [Ratio] 27.8 kg/m2 [employer]ISHER Shira Copsey Work Phone: [facility] 02-11-2022 13:19-0400 Body weight 83 kg [employer] FINISHER Shira Copsey Work Phone: [facility] 02-11-2022 13:11-0400 Body temperature 97.7 [degF] [employer] W[employer] FINISHER Shira Copsey Work Phone: [facility] 02-11-2022 13:11-0400 Diastolic blood pressure 84 mm[Hg] [employer] W[employer] FINISHER Shira Copsey Work Phone: [facility] 02-11-2022 13:11-0400 Heart rate 80 /min [employer] FINISHER Shira Copsey Work Phone: [facility] 02-11-2022 13:11-0400 Respiratory rate 20 /min [employer] FINISHER Shira Copsey Work Phone: [facility] 02-11-2022 13:11-0400 Systolic blood pressure 143 mm[Hg] [employer] W[employer] FINISHER Shira Copsey Work Phone: [facility] 12-17-2021 14:24-0400 Diastolic blood pressure 80 mm[Hg] Encarnacion SALAM [facility] 12-17-2021 14:24-0400 Heart rate 88 /min Encarnacion SALAM [facility] 12-17-2021 14:24-0400 Systolic blood pressure 128 mm[Hg] Encarnacion SALAM [facility] Encounters Encounter Date Encounter Type Care Provider Facility Start: 11-22-2024 End: 11-22-2024 ambulatory ALEX NEWMAN Facility:[facility] Start: 11-22-2024 End: 11-22-2024 Patient encounter procedure Alex Newman MD Work Phone: Urology Comment on above: Foreign body of butt ock with infection, subsequent encounter (Primary Dx) Start: 11-21-2024 End: 11-21-2024 E-mail encounter from caregiver Broderick eBnitez MD Work Phone: [facility] Start: 11-21-2024 End: 11-21-2024 Follow-up encounter Broderick Benitez MD Work Phone: [facility] Comment on above: Dr. Benitez follow up appointment Start: 11-20-2024 End: 11-20-2024 Refill Ankit Khan MD Work Phone: [facility] Comment on above: Mixed hyperlipidemia (CMS/HCC) Start: 11-19-2024 End: 11-19-2024 ambulatory BRODERICK BNEITEZ Facility:[facility] Start: 11-19-2024 End: 11-19-2024 Patient encounter procedure Broderick Benitez MD Work Phone: [facility] Comment on above: Retention of urine ( Primary Dx); Methicillin resistant Staphylococcus aureus infection; Foreign body of buttock with infection, subsequent encounter Start: 11-19-2024 End: 11-19-2024 Telemedicine consultation with patient Broderick Benitez MD Work Phone: [facility] Start: 2024 End: 11-07-2024 Telephone encounter Alex Newman MD Work Phone: [facility] & Comment on above: Patient Question Start: 10-15-2024 End: 10-15-2024 Telephone encounter Paramjit Lira MD Work Phone: Urology Comment on above: Patient Update Start: 10-09-2024 End: 10-12-2024 ambulatory Alex Newman MD Work Phone: [facility]rology Start: 09-28-2024 End: 09-28-2024 Refill Paramjit Lira MD Work Phone: Urology Start: 09-27-2024 End: 09-28-2024 ambulatory Alex Newman MD Work Phone: Urology Comment on above: 2 week appt Start: 09-26-2024 End: 09-26-2024 Telephone encounter Paramjit Lira MD Work Phone: Urology Start: 09-25-2024 End: 09-25-2024 Telephone encounter Paramjit Lira MD Work Phone: Urology Start: 09-24-2024 End: 09-27-2024 Clinisync Result Encounter Generic External Data Provider [facility] External Department Unsolicited Start: 09-24-2024 End: 09-27-2024 Clinisync Result Encounter Generic External Data Provider [facility] External Department Unsolicited Start: 09-24-2024 End: 09-27-2024 ambulatory Alex Newman MD Work Phone: Urology Start: 09-24-2024 End: 09-24-2024 Patient encounter procedure Alex Newman MD Work Phone: Urology Comment on above: Retention of urine ( Primary Dx); Screening for genitourinary condition; Foreign body of buttock with infection, initial encounter Infection and inflam matory reaction due to implanted urinary neurostimulation device, subsequent encounter (Primary Dx) Start: 09-17-2024 End: 09-18-2024 ambulatory Radha Vo [employer] W[employer] FINISHER.ADDRESSOGRAPH OPERATOR Work Phone: Urology Start: 09-17-2024 End: 09-18-2024 Follow-up encounter Radha Vo [employer] WIRE FINISHER.ADDRESSOGRAPH OPERATOR Work Phone: Urology Comment on above: Wound care followup Start: 09-13-2024 End: 09-13-2024 ambulatory Dina Ortiz Facility:[facility] Start: 09-13-2024 End: 09-13-2024 Patient encounter procedure Dina Ortiz [facility] Start: 09-11-2024 End: 09-11-2024 Bamboo flowsheet Ankti Khan MD Work Phone: [facility] Start: 09-11-2024 End: 09-11-2024 Bamboo flowsheet Ankit Khan MD Work Phone: [facility] Start: 09-11-2024 End: 09-11-2024 Office outpatient visit 25 minutes Ankit Khan MD Work Phone: [facility] Comment on above: Type 2 diabetes bianca itus with hyperglycemia, without long-term current use of insulin (CMS/HCC) (Primary Dx); Benign essential hypertension (CMS/HCC); MDD (major depressive disorder), recurrent episode, moderate (CMS/HCC); Adult hypothyroidism (CMS/HCC); Diabetic polyneuropathy associated with type 2 diabetes mellitus (CMS/HCC); Arthropathic psoriasis (CMS/HCC); Type 2 diabetes mellitus with other specified complication (CMS/HCC); Erectile dysfunction due to diseases classified elsewhere Start: 09-11-2024 End: 09-11-2024 ambulatory ANKIT KHAN Not Available Start: 08-28-2024 End: 08-28-2024 E-mail encounter from caregiver Broderick Benitez MD Work Phone: [facility] Start: 08-28-2024 End: 08-28-2024 Follow-up encounter Broderick Benitez MD Work Phone: [facility] Comment on above: Dr. Benitez follow up appointment Start: 08-27-2024 End: 08-27-2024 ambulatory BRODERICK BENITEZ Facility:[facility] Start: 08-27-2024 End: 08-27-2024 Patient encounter procedure Broderick Benitez MD Work Phone: [facility] Comment on above: B12 deficiency (Prim tirso Dx); Thyroid disease; Cognitive change Start: 08-27-2024 End: 08-27-2024 Telemedicine consultation with patient Broderick Benitez MD Work Phone: [facility] Start: 07-26-2024 End: 07-26-2024 Clinisync Result Encounter Generic External Data Provider [facility] External Department Unsolicited Start: 07-26-2024 End: 07-26-2024 Clinisync Result Encounter Generic External Data Provider [facility] External Department Unsolicited Start: 07-26-2024 End: 07-26-2024 Orders Only Ankit Khan MD Work Phone: [facility] Comment on above: Hypothyroidism, unsp ecified type (CMS/HCC) Start: 07-20-2024 End: 07-20-2024 Patient encounter procedure Nasra Connelly MD Work Phone: Urology Comment on above: Urinary urgency (Serene maritza Dx); Neurogenic bladder; Fecal urgency Start: 07-20-2024 End: 07-20-2024 ambulatory NASRA CONNELLY Facility:[facility] Start: 07-18-2024 End: 07-23-2024 ambulatory Sally Dennis PA-C Work Phone: Urology Start: 07-18-2024 End: 07-23-2024 Patient encounter procedure Sally Dennis PA-C Work Phone: Urology Comment on above: Need for appointment Start: 06-28-2024 End: 06-28-2024 ambulatory Brodeirck Benitez MD Work Phone: [facility] Start: 06-28-2024 End: 06-28-2024 Patient encounter procedure Broderick Benitez MD Work Phone: [facility] Comment on above: B12 deficiency (Prim tirso Dx); Thyroid disease; Cognitive change; Controlled type 2 diabetes mellitus without complication, without long-term current use of insulin (HCC); Mixed hyperlipidemia Fax number for [facility] Start: 06-28-2024 End: 06-28-2024 Telemedicine consultation with patient Broderick Benitez MD Work Phone: [facility] Start: 06-26-2024 End: 07-16-2024 ambulatory Broderick Benitez MD Work Phone: [facility] Start: 06-26-2024 End: 07-16-2024 Patient encounter procedure Broderick Benitez MD Work Phone: [facility] Comment on above: Appointment Start: 06-22-2024 End: 06-22-2024 ambulatory Dina Ortiz Facility:[facility] Start: 06-22-2024 End: 06-22-2024 Patient encounter procedure Dina Ortiz [facility] Start: 06-14-2024 End: 06-14-2024 ambulatory ANKIT KHAN Facility:[facility] Start: 06-14-2024 End: 06-14-2024 Patient encounter procedure Radha Vo ASBESTOS WIRE FINISHER.ADDRESSOGRAPH OPERATOR Work Phone: Urology Comment on above: No-show for appointm ent (Primary Dx) Start: 06-14-2024 End: 06-14-2024 Telemedicine consultation with patient Radha Vo ASBESTOS WIRE FINISHER.ADDRESSOGRAPH OPERATOR Work Phone: Urology Start: 06-11-2024 End: 06-11-2024 Telephone encounter Radha Vo ASBESTOS WIRE FINISHER.ADDRESSOGRAPH OPERATOR Work Phone: Urology Comment on above: Patient Question Start: 06-08-2024 End: 06-08-2024 E-mail encounter from caregiver Radha Vo ASBESTOS WIRE FINISHER.ADDRESSOGRAPH OPERATOR Work Phone: Urology Start: 06-08-2024 End: 06-11-2024 ambulatory Radha Hyatten ASBESTOS WIRE FINISHER.ADDRESSOGRAPH OPERATOR Work Phone: Urology Comment on above: Pain due to any linda ce, implant or graft, initial encounter (Primary Dx) Antibiotic Appt on 06/08/2024 a t 12:15 with Radha Vo Start: 06-08-2024 End: 06-08-2024 Telemedicine consultation with patient Radha Hyatten ASBESTOS WIRE FINISHER.ADDRESSOGRAPH OPERATOR Work Phone: Urology Start: 06-07-2024 End: 06-07-2024 Telephone encounter Alex Newman MD Work Phone: [facility] & Comment on above: Patient Question Start: 05-29-2024 End: 05-29-2024 Bamboo flowsheet Ankit Khan MD Work Phone: [facility] Start: 05-29-2024 End: 05-29-2024 Bamboo flowsheet Ankit Khan MD Work Phone: [facility] Start: 05-29-2024 End: 05-29-2024 Office outpatient visit 25 minutes Ankit Khan MD Work Phone: [facility] Comment on above: Fatty liver due to a lcoholism (Primary Dx); Type 2 diabetes mellitus with hyperglycemia, without long-term current use of insulin (CMS/HCC); Benign essential hypertension (CMS/HCC); MDD (major depressive disorder), recurrent episode, moderate (CMS/HCC) Start: 05-29-2024 End: 05-29-2024 ambulatory ANKIT KHAN Not Available Start: 05-16-2024 End: 05-16-2024 Refill Ankit Khan MD Work Phone: [facility] Comment on above: Acute gouty arthriti s; Spinal stenosis of lumbar region with neurogenic claudication; Type 2 diabetes mellitus with hyperglycemia, without long-term current use of insulin (CMS/HCC) Start: 05-02-2024 End: 05-02-2024 Patient encounter procedure MD Ankit Khan Work Phone: [facility] Work Phone: Start: 05-02-2024 End: 05-02-2024 ambulatory MD Ankit Khan Work Phone: [facility] Work Phone: Start: 04-24-2024 End: 04-24-2024 Patient encounter procedure Sally Dennis PA-C Work Phone: Urology Comment on above: Incomplete emptying of bladder (Primary Dx); Urinary urgency; Fecal urgency Start: 04-24-2024 End: 04-24-2024 ambulatory SALLY DENNIS Facility:[facility] Start: 04-19-2024 End: 04-19-2024 ambulatory MD Ankit Khan Work Phone: [facility] Work Phone: Start: 04-19-2024 End: 04-19-2024 Patient encounter procedure MD Ankit Khan Work Phone: [facility] [place] Work Phone: Start: 04-19-2024 End: 04-19-2024 Patient encounter procedure MD Ankit Khan Work Phone: [facility] [place] Work Phone: Start: 04-19-2024 End: 04-19-2024 ambulatory MD Ankit Khan Work Phone: [facility] Work Phone: Start: 04-19-2024 End: 04-19-2024 Patient encounter procedure MD Ankit Khan Work Phone: [facility] Work Phone: Start: 04-11-2024 End: 04-20-2024 ambulatory Alex Newman MD Work Phone: Urology Comment on above: Modulator advise Start: 03-27-2024 Telephone encounter Alex lopez MD Work Phone: [facility] & Comment on above: Appointment Start: 03-13-2024 Patient encounter procedure Ankit Khan MD Work Phone: [facility] Start: 03-13-2024 End: 03-13-2024 ambulatory ANKIT KHAN Not Available Start: 03-01-2024 End: 03-01-2024 ambulatory ALEX NEWMAN Facility:[facility] Start: 02-28-2024 End: 02-28-2024 ambulatory SHAIKH RANJANA Not Available Start: 02-21-2024 End: 02-21-2024 Admission to establishment Pacc [facility] Work Phone: Pre Anesthesia Start: 02-21-2024 End: 02-21-2024 ambulatory ALEX NEWMAN Facility:[facility] Start: 02-21-2024 End: 02-21-2024 Anesthesia consultation [facility] 2 Work Phone: Pre Anesthesia Comment on above: Pre-op examination ( Primary Dx); Hypertension, unspecified type; Hyperlipidemia, unspecified hyperlipidemia type; ELLEN on CPAP; Gastroesophageal reflux disease without esophagitis; Type 2 diabetes mellitus without complication, unspecified whether usp insulin use (HCC); Acquired hypothyroidism; Anemia, unspecified type; Gout, unspecified cause, unspecified chronicity, unspecified site; Depression, unspecified depression type; Retention of urine; Gait difficulty Start: 02-21-2024 End: 02-21-2024 Preprocedural examination done Pac 2 Work Phone: [facility] Work Phone: Start: 02-17-2024 Telephone encounter Alex lopez MD Work Phone: [facility] & Comment on above: Patient Question Start: 02-15-2024 ambulatory Alex tobin MD Work Phone: Urology Start: 02-13-2024 Telephone encounter Neel Fregoso MD Work Phone: Urology Start: 02-09-2024 End: 02-09-2024 ambulatory CATHLEEN COONEY Facility:[facility] Start: 02-02-2024 ambulatory Lashonda Valentino Work Phone: Urology Comment on above: bladder / catheteriz ation diaries for next week Start: 02-02-2024 E-mail encounter romero aparicio caregiver Lashonda Quispe MD Work Phone: Urology Start: 01-25-2024 Telephone encounter Gabbie el APRN.ADDRESSOGRAPH OPERATOR Work Phone: Pre Anesthesia Comment on above: PreOp Call Start: 01-23-2024 End: 01-23-2024 Anesthesia consultation Gabbie Nunes APRN.ADDRESSOGRAPH OPERATOR Work Phone: Pre Anesthesia Comment on above: PACC Pre-op evaluation (P rimary Dx); Hypertension, unspecified type; Other hyperlipidemia; Acquired hypothyroidism; Other depression; ELLEN on CPAP; Retention of urine Start: 01-23-2024 E-mail encounter romero aparicio caregiver Gabbie Nunes MAR.ADDRESSOGRAPH OPERATOR Work Phone: Pre Anesthesia Start: 01-23-2024 End: 01-23-2024 Admission to establishment Pacc [place] [facility] Virtual Pre Anesthesia Start: 01-23-2024 End: 01-23-2024 ambulatory CATHLEEN COONEY Facility:[facility] Start: 01-23-2024 End: 01-23-2024 Preprocedural examination done Pac Virtual [facility] Work Phone: Start: 12-05-2023 ambulatory Alex tobin MD Work Phone: Urology Start: 12-02-2023 Telephone encounter Alex lopez MD Work Phone: [facility] & Comment on above: Schedule Surgery Start: 11-29-2023 End: 11-29-2023 ambulatory Alex Newman MD Work Phone: Urology Start: 11-29-2023 End: 11-29-2023 Patient encounter procedure Alex Newman MD Work Phone: Urology Comment on above: Urinary retention (P rimary Dx) Start: 11-29-2023 End: 11-29-2023 Nursing evaluation of patient and report Urodynamics Work Phone: Urology Comment on above: Retention of urine ( Primary Dx); Urinary urgency Start: 10-20-2023 End: 10-20-2023 ambulatory SHAIKH RANJANA Not Available Start: 09-27-2023 Clinisync Result Encounter Shaikh Ranjana CALDERON Work Phone: [facility] Unsolicited Start: 09-27-2023 Clinisync Result Encounter Shaikh Ranjana CALDERON Work Phone: [facility] Unsolicited Start: 09-22-2023 ambulatory SARMAD FINLEY Facility: [facility] Start: 09-22-2023 End: 09-22-2023 Office outpatient visit 15 minutes Sarmad Finley MD Work Phone: Division of [facility] Comment on above: S/P lumbar fusion (P rimary Dx); S/P laminectomy Start: 09-21-2023 End: 09-21-2023 ambulatory DINA ORTIZ Facility:[facility] Start: 09-21-2023 End: 09-21-2023 Patient encounter procedure Yary Fernando MD Work Phone: Urology Comment on above: Paraplegia (HCC) (Pr imary Dx); Neurogenic bladder Start: 09-19-2023 ambulatory AYUSH Stevenson ility:[facility] Start: 09-19-2023 End: 09-19-2023 Subsequent hospital visit by physician Ayush Gonzalez ASBESTOS WIRE FINISHER-ADDRESSOGRAPH OPERATOR Work Phone: Imaging [facility] Comment on above: Arrived Start: 08-03-2023 End: 08-03-2023 Lab Drop off Dina GlenisAdan Ortiz [facility] Start: 08-03-2023 End: 08-03-2023 Patient encounter procedure Dina Soode [facility] Start: 05-26-2023 End: 05-26-2023 Patient encounter procedure Dinadoris Soode [facility] Start: 04-15-2023 End: 04-15-2023 Patient encounter procedure Dina Aparicio. Indigoe [facility] [place] Start: 11-03-2022 Chart abstracting [facility] Work Phone: Neurology Comment on above: Opened In Error Start: 11-03-2022 Telephone encounter Halima Nation ASBESTOS WIRE FINISHER.ADDRESSOGRAPH OPERATOR Work Phone: Neurology Comment on above: Rejected CMN Start: 10-11-2022 End: 11-13-[address] ANKIT KHAN Facility:[facility] Start: 09-21-2022 End: 09-22-[address] GOLDIE DUKES Facility:[facility] Start: 08-15-[address] ANKIT KHAN [facility] ity:[facility] Start: 07-28-2022 End: 07-28-2022 Patient encounter procedure Dina Ortiz [facility] Start: 07-05-2022 End: 07-05-2022 Patient encounter procedure Tejas ROSARIO [facility] Start: 06-24-2022 End: 06-24-2022 Lab Drop off YARA NAVARRO [facility] Start: 06-24-2022 End: 06-24-2022 Patient encounter procedure YARA NAVARRO [facility] Start: 06-02-2022 End: 06-02-2022 Patient encounter procedure YARA NAVARRO [facility] Start: 05-31-2022 End: 05-31-2022 Patient encounter procedure Tejas ROSARIO [facility] Start: 05-05-2022 End: 05-05-2022 Patient encounter procedure YARA NAVARRO [facility] Start: 03-22-2022 End: 03-23-[address] ANKIT KHAN Facility: Start: 02-18-2022 End: 02-18-2022 Office outpatient visit 15 minutes Sarmad Finley MD Work Phone: Division of [facility] Comment on above: Epidural abscess (Pr imary Dx); Lumbar spine tumor Start: 02-17-2022 End: 02-17-2022 Patient encounter procedure Dina Ortiz [facility] Start: 02-11-2022 End: 02-11-2022 Discharged Recurring ASBESTOS WIRE FINISHER Shira Tamezstacy Work Phone: [facility] [place] Start: 02-08-2022 End: 02-09-2022 ambulatory DINA ORTIZ . Facility: Start: 01-13-2022 End: 01-13-2022 Lab Drop off Dina Ortiz [facility] Start: 01-13-2022 End: 01-13-2022 Patient encounter procedure Dina Ortiz [facility] Start: 12-17-2021 End: 01-15-2022 Pre-admission assessment Alysha MEEKS [facility] Start: 12-17-2021 End: 12-17-2021 Patient encounter procedure Alysha MEEKS [facility] Start: 11-25-2021 End: 11-25-2021 Patient encounter procedure Dina Ortiz [facility] [place] Start: 11-02-2021 End: 11-02-2021 Patient encounter procedure Alysha MEEKS [facility] Start: 06-01-2021 End: 06-02-2021 ambulatory CATHLEEN COONEY [facility] Start: 02-13-2021 End: 02-16-2021 ambulatory CHANCE MCNEAL [facility] Start: 02-13-2021 End: 02-15-2021 Subsequent hospital visit by physician [facility] Mri Scanner [facility] MRI Comment on above: Myelopathy, spondylo genic, cervical Start: 02-11-2021 End: 02-14-2021 ambulatory YANELI CARO [facility] Start: 02-11-2021 End: 02-11-2021 Subsequent hospital visit by physician Cathleen Cooney MD Work Phone: [facility] Laboratory Start: 11-21-2020 End: 11-22-2020 ambulatory CATHLEEN RUDOLPHRACHEL [facility] Start: 11-21-2020 End: 11-21-2020 Subsequent hospital visit by physician Cathleen Cooney [facility] Laboratory Comment on above: Anemia, unspecified type; Controlled type 2 diabetes mellitus without complication, with long-term current use of insulin (HCC) Start: 11-05-2020 End: 2020 ambulatory CATHLEEN RUDOLPHRACHEL [facility] Start: 11-05-2020 End: 11-05-2020 Subsequent hospital visit by physician Cathleen Cooney [facility] Laboratory Start: 06-12-2020 End: 06-13-2020 ambulatory CATHLEEN RUDOLPHRACHEL [facility] Start: 06-12-2020 End: 06-12-2020 Subsequent hospital visit by physician [facility] Cardiology Stress Room [facility] Stress Lab Comment on above: Arrived Start: 06-11-2020 End: 06-12-2020 ambulatory CATHLEEN COONEY [facility] Start: 06-11-2020 End: 06-11-2020 Subsequent hospital visit by physician [facility] Cardiology Stress Room [facility] Stress Lab Comment on above: Fatigue, unspecified type Start: 05-26-2020 End: 05-26-2020 Subsequent hospital visit by physician Cathleen Cooney [facility] Laboratory Comment on above: Screening PSA (prost ate specific antigen); Hypothyroidism, unspecified type; Controlled type 2 diabetes mellitus without complication, with long-term current use of insulin (HCC); Mixed hyperlipidemia; Essential hypertension; Fatigue, unspecified type; Anemia, unspecified type Start: 05-20-2020 End: 05-20-2020 Patient encounter procedure JANENE CARR MORELIA Facility:[facility] Start: 04-22-2020 End: 04-22-2020 Subsequent hospital visit by physician Cathleen Cooney [facility] Laboratory Comment on above: Anemia, unspecified type; Fatigue, unspecified type; Bladder wall thickening Start: 04-01-2020 End: 04-03-2020 Subsequent hospital visit by physician [facility] Cat Scan Room [facility] Laboratory Comment on above: Fatigue, unspecified type; Positive FIT (fecal immunochemical test) Fatigue, unspecified type; Positive FIT (fecal immunochemical test); Weight loss, unintentional Start: 03-20-2020 End: 03-22-2020 Subsequent hospital visit by physician [facility] Mri Scanner [facility] MRI Comment on above: Expressive aphasia; Fatigue, unspecified type; Cognitive dysfunction Pre-procedure lab ex am Start: 03-07-2020 End: 03-07-2020 Subsequent hospital visit by physician Cathleen Cooney [facility] Laboratory Comment on above: Shortness of breath; Cough Start: 03-05-2020 End: 03-05-2020 Subsequent hospital visit by physician Cathleen Cooney [facility] Laboratory Comment on above: Impaired fasting glu cose; Generalized abdominal pain Start: 02-27-2020 End: 02-29-2020 Subsequent hospital visit by physician [facility] Xr Dr Room 4 [facility] Laboratory Comment on above: Type 2 diabetes bianca itus without complication, unspecified whether usp insulin use (HCC); Fatigue, unspecified type Shortness of breath Start: 02-20-2020 End: 02-20-2020 Subsequent hospital visit by physician [facility] Lab Drawing Room [facility] Laboratory Comment on above: Fever, unspecified f ever cause; Chills; Shortness of breath; Loss of taste; Loss of smell; Confusion; Viral syndrome Start: 02-14-2020 End: 02-14-2020 Subsequent hospital visit by physician Lashell Covid Screening Schedule [facility] Covid Screening Comment on above: Lightheadedness; Fever, unspecified fever cause; Fatigue, unspecified type; Viral syndrome Start: 01-01-2020 End: 01-01-2020 Subsequent [facility] Comment on above: Hypothyroidism, unsp ecified type Start: 11-28-2019 End: 11-28-2019 Subsequent hospital visit by physician [facility] Comment on above: Hypothyroidism, unsp ecified type; Controlled type 2 diabetes mellitus without complication, with long-term current use of insulin (HCC); Mixed hyperlipidemia; Essential hypertension Start: 07-06-2019 End: 07-06-2019 Subsequent hospital visit by physician Cathleen LOBO Laboratory Comment on above: Fatigue, unspecified type Start: 05-21-2019 End: 05-21-2019 Subsequent hospital visit by physician Cathleen Co[facility] Comment on above: Controlled type 2 di abetes mellitus without complication, with long-term current use of insulin (HCC); Mixed hyperlipidemia; Essential hypertension; Hypothyroidism, unspecified type Start: 12-28-2018 End: 12-31-2018 Patient encounter procedure [facility] Start: 10-27-2018 End: 10-28-2018 Patient encounter procedure DEFAULT PHYSICIAN Facility:[facility] Procedures Date Procedure Procedure Detail Performing Clinician Start: 09-24-2024 [facility] BACTERIA WND CULT G eneric External Data Provider Start: 07-26-2024 ALL CBC WITH AUTO DIFF Ankit Khan MD Work Phone: Start: 07-26-2024 [facility] HEMOGLOBIN A1C Gene shazia External Data Provider Start: 05-02-2024 Ultrasound elastogra phy of liver MD Ankit Khan Work Phone: Start: 05-02-2024 Ultrasonography of liver MD Ankit Khan Work Phone: Start: 04-19-2024 Plain X-ray of right hand MD Ankit Khan Work Phone: Start: 03-01-2024 Insertion/rplcmt peripheral/gastric npgr Dina Ortiz Start: 02-09-2024 Inc impltj neurostim ulator eltrd sacral nerve Dina Lumary anne Start: 09-27-2023 ALL CBC WITH AUTO DIFF Shaikh Ranjana CALDERON Work Phone: Start: 12-30-2021 Cystoscopic laser lithotripsy of ureteric calculus Dina Lue Start: 12-16-2021 Retrograde pyelograp hy of left renal pelvis Dina Lue Start: 07-29-2021 Transurethral cystoscopy Dina Lue Start: 02-13-2021 Mri spinal canal cer vical w/o contrast matrl Chance Mcneal MD Work Phone: Start: 02-11-2021 Creatinine blood Gennaro Cooney MD Work Phone: Start: 11-21-2020 Urine albumin quantitative Cathleen Cooney Work Phone: Start: 11-21-2020 Lipid panel Armand Cooney Work Phone: Start: 11-21-2020 Assay of ferritin Luigi Rudolphrachel Work Phone: Start: 11-21-2020 Assay of iron Christian Valentino Ronnirs Work Phone: Start: 11-21-2020 Basic metabolic pane l calcium total Cathleen Cooney Work Phone: Start: 11-21-2020 Blood count complete automated Cathleen Rudolphrachel Work Phone: Start: 11-21-2020 Hemoglobin glycosylated a1c Cathleen Cooney Work Phone: Start: 11-21-2020 Transferase alanine amino alt sgpt Cathleen Valentino Sears Work Phone: Start: 11-21-2020 Transferase aspartat e amino ast sgot Cathleen Valentino Sears Work Phone: Start: 11-21-2020 Lipid 1996 panel - S emily or Plasma Yary Fernando MD Work Phone: Start: 06-11-2020 Myocardial spect mul tiple studies YANELI CARO Start: 05-26-2020 [object Object] Frank Cooney Comment on above: The Sindi ECLIA as say is used. Results obtained with different assay methods cannot be used interchangeably. Start: 05-26-2020 Cyanocobalamin vitamin b-12 Cathleen Rudolphrs Work Phone: Start: 05-26-2020 Assay of ferritin Luigi hamzahher Chicho Rudolphrs Work Phone: Start: 05-26-2020 Assay of free thyroxine Christianer Chicho Rudolphrs Work Phone: Start: 05-26-2020 Assay of iron Christian er Chicho Sears Work Phone: Start: 05-26-2020 Assay of testosterone free Cathleen Rudolphrs Work Phone: Start: 05-26-2020 Assay of thyroid sti mulating hormone tsh Cathleen Rudolphrs Work Phone: Start: 05-26-2020 Assay of triiodothyr onine t3 free Cathleen Rudolphrs Work Phone: Start: 05-26-2020 Basic metabolic pane l calcium total Christianer Chicho Sears Work Phone: Start: 05-26-2020 Blood count complete automated Christianer Chicho Cooney Work Phone: Start: 05-26-2020 Hemoglobin glycosylated a1c Christianer D Sears Work Phone: Start: 05-26-2020 Lipid panel Armand r Chicho Rudolphrs Work Phone: Start: 05-26-2020 PSA screening Christian er Chicho Sears Work Phone: Start: 05-26-2020 Transferase alanine amino alt sgpt Christbuckyer D Sears Work Phone: Start: 05-26-2020 Transferase aspartat e amino ast sgot Christianer Chicho Sears Work Phone: Start: 05-20-2020 Perico arceo MD Work Phone: Start: 04-22-2020 Urnls dip stick/tabl et reagent auto microscopy Christbuckyer Chicho Sears Work Phone: Start: 04-22-2020 Blood count complete automated Christbuckyer D Sears Work Phone: Start: 04-01-2020 Ct abdomen & pelvis w/contrast material Christopher D Sears Work Phone: Start: 04-01-2020 Blood count complete auto&auto difrntl wbc Christbuckyer Chicho Sears Work Phone: Start: 04-01-2020 COVID-19, ANTIBODY, TOTAL Christbuckyer D Sears Work Phone: Start: 03-20-2020 Mri brain brain stem w/o w/contrast material Christbuckyer Chicho Sears Work Phone: Start: 03-20-2020 Creatinine blood Gennaro opher D Sears Work Phone: Start: 03-07-2020 COVID-19, ANTIBODY, TOTAL Channing X Lobo Work Phone: Start: 03-05-2020 Urinalysis microscopic only Channing X Lobo Work Phone: Start: 03-05-2020 Urnls dip stick/tabl et rgnt auto w/o microscopy Channing X Lobo Work Phone: Start: 02-27-2020 Radiologic exam ches t 2 views Channing X Lobo Work Phone: Start: 02-27-2020 Basic metabolic pane l calcium total Channing X Lobo Work Phone: Start: 02-27-2020 Blood count complete automated Channing X Lobo Work Phone: Start: 02-27-2020 Hemoglobin glycosylated a1c Channing X Lobo Work Phone: Start: 02-27-2020 Lipid panel Channing X Lobo Work Phone: Start: 02-20-2020 COVID-19, ANTIBODY, TOTAL Christopher D Sears Work Phone: Start: 01-01-2020 Basic metabolic pane l calcium total Chuy S Rai Work Phone: Start: 01-01-2020 Blood count complete auto&auto difrntl wbc Chuy S Rai Work Phone: Start: 01-01-2020 Hemoglobin glycosylated a1c Chuy S Rai Work Phone: Start: 01-01-2020 Assay of free thyroxine Christopher D Sears Work Phone: Start: 01-01-2020 Assay of thyroid sti mulating hormone tsh Christopher D Sears Work Phone: Start: 01-01-2020 Assay of triiodothyr onine t3 free Christopher D Sears Work Phone: Start: 01-01-2020 Ecg routine ecg w/le ast 12 lds w/i&r Chuy S Rai Work Phone: Start: 01-01-2020 EKG REPORT Hpf Scanni ng Start: 11-28-2019 Urine albumin quantitative Christopher D Sears Work Phone: Start: 11-28-2019 Assay of free thyroxine Christopher D Sears Work Phone: Start: 11-28-2019 Assay of thyroid sti mulating hormone tsh Christopher D Sears Work Phone: Start: 11-28-2019 Assay of triiodothyr onine t3 free Christopher D Sears Work Phone: Start: 11-28-2019 Basic metabolic pane l calcium total Christopher D Sears Work Phone: Start: 11-28-2019 Blood count complete automated Christopher D Sears Work Phone: Start: 11-28-2019 Hemoglobin glycosylated a1c Christopher D Sears Work Phone: Start: 11-28-2019 Lipid panel Armand r D Sears Work Phone: Start: 11-28-2019 Transferase alanine amino alt sgpt Christianer D Sears Work Phone: Start: 11-28-2019 Transferase aspartat e amino ast sgot Christianer D Sears Work Phone: Start: 07-06-2019 Blood count complete auto&auto difrntl wbc Arnaud Jain Work Phone: Start: 05-21-2019 Urine albumin quantitative Christianer Chicho Sears Work Phone: Start: 05-21-2019 Assay of free thyroxine Christbuckyer Chicho Sears Work Phone: Start: 05-21-2019 Assay of thyroid sti mulating hormone tsh Christgordon Valentino Sears Work Phone: Start: 05-21-2019 Assay of triiodothyr onine t3 free Christianer D Sears Work Phone: Start: 05-21-2019 Basic metabolic pane l calcium total Christianer D Sears Work Phone: Start: 05-21-2019 Blood count complete auto&auto difrntl wbc Christianer D Sears Work Phone: Start: 05-21-2019 Hemoglobin glycosylated a1c Christianer D Sears Work Phone: Start: 05-21-2019 Lipid panel Armand r D Sears Work Phone: Start: 05-21-2019 Transferase alanine amino alt sgpt Christianer D Sears Work Phone: Start: 05-21-2019 Transferase aspartat e amino ast sgot Christianer D Sears Work Phone: Start: 12-28-2018 Duplex scan extracra nial art compl bi study JUDY MICHAELS Arthroplasty of knee Dina L ue Back structure, excl uding neck (body structure) Dina Ortiz Large intestine excision Kelly Ortiz Plan of Treatment Date Care Activity Detail Author Start: 05-20-2030 Screening for malignant neoplasm of colon [facility] Start: 11-21-2025 Lipid panel Lipid Screening [facility] Start: 05-20-2025 End: 05-20-2025 Follow-up encounter 05/20/2025 11:40 AM EDT [facility] [address] [place] [address] Broderick Benitez MD [address] [place], [place] [id number] 6 month follow up [facility] Comment on above: 6 month follow up Start: 04-15-2025 Influenza vaccination Influenza Vaccine (Season Ended) [facility] Start: 03-13-2025 Medicare Annual Wellness (AWV) Medicare Annual Wellness (AWV) [facility] Start: 01-24-2025 Hemoglobin A1c measurement Diabetes: Hemoglobin A1C [facility] Start: 01-01-2025 End: 01-01-2025 Patient encounter procedure 01/01/2025 10:30 AM EDT Office Visit Urology [address] [address] Alex Newman MD [address] [address] 1 month follow up check infected innerstem Urology Comment on above: 1 month follow up check infected innerst em Start: 11-22-2024 End: 11-22-2024 Patient encounter procedure 11/22/2024 1:00 PM EDT Office Visit Urology [address] [address] Alex Newman MD [address] [address] 2 wk f/u Urology Comment on above: 2 wk f/u Start: 11-19-2024 End: 11-19-2024 Follow-up encounter 11/19/2024 10:20 AM EDT [facility] [address] [place] [address] Broderick Benitez MD [address] [place] [address] Follow up [facility] Comment on above: Follow up Start: 11-13-2024 End: 11-13-2024 Patient encounter procedure 11/13/2024 10:00 AM EDT Office Visit Urology [address] [address] Alex Newman MD [address] [address] 2 wk f/u Urology Comment on above: 2 wk f/u Start: 10-09-2024 End: 10-09-2024 Patient encounter procedure 10/09/2024 10:30 AM EST Office Visit Urology [address] [address] Alex Newman MD [address] [address] 2 wk f/u Urology Comment on above: 2 wk f/u Start: 10-03-2024 End: 10-03-2024 Patient encounter procedure 10/03/2024 10:00 AM EST Office Visit Urology [address] [place] [address] Sally Dennis PA-C [address] [place] [address] UA if sx; PVR ~post op- reprogramming Urology Comment on above: UA if sx; PVR ~post op- reprogramming Start: 09-24-2024 End: 09-24-2024 Patient encounter procedure 09/24/2024 11:00 AM EST Office Visit Urology [address] [address] Alex Newman MD [address] [place] [address] post op - infected site Urology Comment on above: post op - infected site Start: 09-23-2024 Diabetes Screening Diabetes Screening [facility] Start: 09-11-2024 End: 09-11-2025 Microalbumin/Creatinine panel in random Urine Microalbumin / creatinine, urine ratio Lab Routine Type 2 diabetes mellitus with hyperglycemia, without long-term current use of insulin ([facility]) Expected: 09/11/2024 (Approximate), Expires: 09/11/2025 [facility] Work Phone: Comment on above: Expected: 09/11/2024 (Approximate), Expi res: 09/11/2025 Start: 09-11-2024 End: 09-11-2025 Thyrotropin [Units/volume] in Serum or Plasma TSH Lab Routine Adult hypothyroidism ([facility]) Expected: 09/11/2024 (Approximate), Expires: 09/11/2025 [facility] Comment on above: Expected: 09/11/2024 (Approximate), Expi res: 09/11/2025 Start: 09-11-2024 End: 09-11-2025 Thyroxine (T4) free [Mass/volume] in Serum or Plasma T4, free Lab Routine Adult hypothyroidism ([facility]) Expected: 09/11/2024 (Approximate), Expires: 09/11/2025 [facility] Comment on above: Expected: 09/11/2024 (Approximate), Expi res: 09/11/2025 Start: 09-11-2024 End: 09-11-2024 Patient encounter procedure 09/11/2024 1:45 PM EST [facility] [address] [place] [phone] Ankit Khan MD [address] [place] [id number] Arrived [facility] Comment on above: Arrived Start: 09-04-2024 End: 09-04-2024 Patient encounter procedure 09/04/2024 1:00 PM EST Office Visit [facility] [address] [place] [address] Ankit Khan MD [address] [place] [address] [facility] Start: 08-26-2024 Hemoglobin A1c measurement Diabetes: Hemoglobin A1C [facility] Start: 08-15-2024 Advance Directive Discussion Advance Directive Discussion [facility] Start: 07-25-2024 End: 07-25-2024 Patient encounter procedure 07/25/2024 10:20 AM EST Office Visit Urology [address] [place] [address] Sally Dennis PA-C [address] [place] [address] UA if sx; PVR ~post op- reprogramming Urology Comment on above: UA if sx; PVR ~post op- reprogramming Start: 07-24-2024 End: 07-24-2024 Patient encounter procedure 07/24/2024 1:30 PM EST Office Visit Urology [address] [place] [address] Nasra Cueva MD [address] [place] [address] post interstim pain, Dr Shea pt he asks you see him please Urology Comment on above: post interstim pain, Dr Shea pt he a sks you see him please Start: 06-28-2024 End: 09-27-2024 Cobalamin (Vitamin B12) [Mass/volume] in Serum or Plasma VITAMIN B12 Lab Routine B12 deficiency Expected: 06/28/2024, Expires: 09/27/2024 [facility] Comment on above: Expected: 06/28/2024, Expires: Start: 06-28-2024 End: 09-27-2024 Comprehensive metabolic 2000 panel - Serum or Plasma COMPREHENSIVE METABOLIC PANEL Lab Routine Mixed hyperlipidemia Expected: 06/28/2024, Expires: 09/27/2024 [facility] Comment on above: Expected: 06/28/2024, Expires: Start: 06-28-2024 End: 09-27-2024 Hemoglobin A1c in Blood HEMOGLOBIN A1C Lab Routine Controlled type 2 diabetes mellitus without complication, without long-term current use of insulin (HCC) Expected: 06/28/2024, Expires: 09/27/2024 [facility] Comment on above: Expected: 06/28/2024, Expires: Start: 06-28-2024 End: 09-27-2024 Thyrotropin [Units/volume] in Serum or Plasma THYROID STIMULATING HORMONE Lab Routine Thyroid disease Expected: 06/28/2024, Expires: 09/27/2024 [facility] Comment on above: Expected: 06/28/2024, Expires: Start: 06-19-2024 End: 06-19-2024 Patient encounter procedure 06/19/2024 1:30 PM EST Office Visit Urology [address] [place] [address] Nasra Cueva MD [address] [place] [address] post interstim pain, Dr Shea pt he asks you see him please Urology Comment on above: post interstim pain, Dr Shea pt he a sks you see him please Start: 06-15-2024 End: 06-15-2024 ambulatory 06/15/2024 11:00 AM EDT [facility] Urology [address] [address] Radha Vo APRN.ADDRESSOGRAPH OPERATOR [address] [place] [address] interstim pain f/u Urology Comment on above: interstim pain f/u Start: 06-14-2024 End: 06-14-2024 ambulatory 06/14/2024 9:00 AM EDT [facility] Urology [address] [address] Radha Vo APRN.ADDRESSOGRAPH OPERATOR [address] [place] [address] interstim pain f/u Urology Comment on above: interstim pain f/u Start: 06-08-2024 End: 06-08-2024 ambulatory 06/08/2024 12:30 PM EDT [facility] Urology [address] [facility] [address] [place] [address] Radha Vo APRN.ADDRESSOGRAPH OPERATOR [address] [facility] [place] [address] interstim pain Urology Comment on above: interstim pain Start: 05-29-2024 End: 05-29-2024 Patient encounter procedure 05/29/2024 10:30 AM EDT Office Visit [facility] [address] [place] [address] Ankit Khan MD [address] [place] [phone] Arrived [facility] Comment on above: Arrived Start: 05-25-2024 DIABETES SCREEN DIABETES SCREEN [facility] Start: 05-23-2024 End: 05-23-2024 Patient encounter procedure 05/23/2024 10:30 AM EDT Office Visit [facility] [address] [place] [address] Ankit Khan MD [address] [place] [address] [facility] Start: 05-02-2024 [facility] Start: 05-02-2024 Ultrasonography of liver US [facility] Start: 05-02-2024 [facility] Start: 04-24-2024 End: 04-24-2024 Patient encounter procedure 04/24/2024 9:00 AM EDT Office Visit Urology [address] [address] Sally Dennis PA-C [address] [place], [place] [phone] post op- reprogramming Urology Comment on above: post op- reprogramming Start: 04-19-2024 Niuve-4-zahbofhonws.tumor marker [Mass/volume] in Serum or Plasma [facility] Start: 04-19-2024 Hepatitis A virus Ab [Presence] in Serum by Immunoassay [facility] Start: 04-19-2024 Hepatitis B core antibody measurement [facility] Start: 04-19-2024 Hepatitis B virus surface Ab [Presence] in Serum [facility] Start: 04-19-2024 [facility] Start: 04-15-2024 Covid-19 Vaccine ( season) Covid-19 Vaccine () [facility] Start: 04-15-2024 Covid-19 Vaccine ( season) Covid-19 Vaccine ( season) [facility] Start: 04-15-2024 Influenza vaccination [facility] Start: 04-02-2024 End: 04-02-2024 Patient encounter procedure 04/02/2024 8:00 AM EDT Office Visit Urology [address] [place] [address] Sally Dennis PA-C [address] [place] [address] post op- Urology Comment on above: post op- Start: 03-01-2024 End: 03-01-2024 Admission to same day surgery center 03/01/2024 8:30 AM EDT - 03/01/2024 10:20 AM EDT Surgery [facility] [address] [place] [address] Alex Newman MD 8718 [facility] [address] [place], [place] [id number] IMPLANT STIMULATOR LEAD(S) BLADDER INCISIONAL APPROACH [facility] Comment on above: IMPLANT STIMULATOR LEAD(S) BLADDER INCIS IONAL APPROACH Start: 03-01-2024 End: 03-01-2024 Inc impltj neurostimulator eltrd sacral nerve IMPLANT STIMULATOR LEAD(S) BLADDER INCISIONAL APPROACH Urge incontinence 03/01/2024 8:30 AM EDT [facility] Start: 03-01-2024 End: 03-01-2024 Insertion/rplcmt peripheral/gastric npgr INSRT NSTIM GENERATOR BLADDER W/ POCKET CREATE AND CONNECT BTWN ELCTRD ARRAY AND PULSE GENERATOR OR RECVR Urge incontinence 03/01/2024 8:30 AM EDT [facility] Start: 03-01-2024 Subsequent hospital visit by physician 03/01/2024 8:30 AM EDT Hospital Encounter [facility] [address] [place] [address] Alex Newman MD [address] [facility] [address] [place], [place] [id number] Urge incontinence [N39.41] [facility] Comment on above: Urge incontinence [N39.41] Start: 02-21-2024 End: 05-22-2024 Basic metabolic 2000 panel - Serum or Plasma BASIC METABOLIC PANEL Lab Routine Pre-op examination Expected: 02/21/2024, Expires: 05/22/2024 [facility] Work Phone: Comment on above: Expected: 02/21/2024, Expires: Start: 02-21-2024 End: 05-22-2024 CBC W Auto Differential panel - Blood COMPLETE BLOOD COUNT AND DIFFERENTIAL Lab Routine Pre-op examination Expected: 02/21/2024, Expires: 05/22/2024 [facility] Comment on above: Expected: 02/21/2024, Expires: Start: 02-21-2024 End: 05-22-2024 Hemoglobin A1c in Blood HEMOGLOBIN A1C Lab Routine Pre-op examination Expected: 02/21/2024, Expires: 05/22/2024 [facility] Comment on above: Expected: 02/21/2024, Expires: Start: 02-21-2024 End: 02-21-2024 Anesthesia consultation 02/21/2024 1:20 PM EDT PAT [facility] [address] [place] [address] VV//[phone] Pre [facility] Comment on above: VV//[phone] Start: 02-09-2024 End: 02-09-2024 Admission to same day surgery center 02/09/2024 8:55 AM EDT - 02/09/2024 10:20 AM EDT Surgery [facility] [address] [place] [address] Alex Newman MD [address] [address] IMPLANT STIMULATOR LEAD(S) BLADDER INCISIONAL APPROACH [facility] Comment on above: IMPLANT STIMULATOR LEAD(S) BLADDER INCIS IONAL APPROACH Start: 02-09-2024 End: 02-09-2024 Inc impltj neurostimulator eltrd sacral nerve IMPLANT STIMULATOR LEAD(S) BLADDER INCISIONAL APPROACH Urge incontinence 02/09/2024 8:55 AM EDT [facility] Start: 02-09-2024 Subsequent hospital visit by physician 02/09/2024 8:55 AM EDT Hospital Encounter [facility] [address] [place] [address] Alex Newman MD [address] [address] Urge incontinence [N39.41] [facility] Comment on above: Urge incontinence [N39.41] Start: 09-29-2023 End: 09-29-2023 Patient encounter procedure 09/29/2023 1:30 PM EST Office Visit [facility] [address] [place] [address] Shaikh Chilel MD [address] [place] [address] [facility] Start: 09-22-2023 End: 09-22-2023 Patient encounter procedure 09/22/2023 10:30 AM EST Office Visit Division of [facility] at [facility] [address] [place] [address] Sarmad Finley MD [address] [place] [address] Division [facility] at [facility] Start: 08-15-2023 Advance Directive Discussion Advance Directive Discussion [facility] Start: 08-15-2023 Behavioral Health Screening Behavioral Health Screening [facility] Start: 08-15-2023 Depression Assessment Depression Assessment [facility] Start: 04-15-2023 Covid-19 Vaccine () Covid-19 Vaccine () [facility] Start: 04-15-2023 COVID-19 VACCINE () COVID-19 VACCINE () [facility] Start: 04-15-2023 Influenza vaccination INFLUENZA VACCINE (#1) [facility] Start: 09-23-2022 Urine screening for protein Diabetes: Urine Protein Screening [facility] Start: 08-16-2022 Colonoscopy COLORECTAL CANCER SCREENING DISCUSSION [facility] Start: 08-16-2022 Screening for malignant neoplasm of colon [facility] Start: 08-15-2022 ADVANCE DIRECTIVE DISCUSSION ADVANCE DIRECTIVE DISCUSSION [facility] Start: 08-15-2022 DEPRESSION ASSESSMENT DEPRESSION ASSESSMENT [facility] Start: 08-06-2022 Thyroid stimulating hormone measurement TSH [facility] Start: 07-27-2022 Annual PCP Team Chronic Disease Visit Annual PCP Team Chronic Disease Visit [facility] Start: 06-01-2022 Medicare Annual Wellness (AWV) Medicare Annual Wellness (AWV) [facility] Start: 05-25-2022 Urine screening for protein Diabetes: Urine Protein Screening [facility] Start: 04-15-2022 Influenza vaccination [facility] Start: 02-18-2022 COVID-19 VACCINE (3 - Booster for Pfizer series) COVID-19 VACCINE (3 - Booster for Pfizer series) [facility] Start: 02-11-2022 Creatinine measurement Creatinine monitoring [employer] Phone: Start: 02-02-2022 Hemoglobin A1c measurement [facility] Start: 11-21-2021 Creatinine measurement Creatinine monitoring [employer] Phone: Start: 11-21-2021 Diabetic microalbuminuria test Diabetic microalbuminuria test [employer] Phone: Start: 11-21-2021 Hemoglobin A1c measurement A1C test (Diabetic or Prediabetic) [employer] Phone: Start: 11-21-2021 Hepatitis B surface antibody level LDL Cholesterol [facility] Start: 11-21-2021 Lipid panel Lipid screen [employer] Phone: Start: 11-21-2021 Potassium monitoring Potassium monitoring [employer] Phone: Start: 11-02-2021 Hemoglobin A1c measurement Diabetes: Hemoglobin A1C [facility] Start: 06-02-2021 COVID-19 Vaccine (1) COVID-19 Vaccine (1) [employer] Phone: Comment on above: Postponed from 1963 (Unavailable) Start: 06-01-2021 End: 06-01-2021 Office Visit 06/01/2021 Office Visit Internal Medicine Cathleen Cooney MD [address] [place], [place] [phone] Jeanette Cooney MD [facility] Start: 05-26-2021 Creatinine measurement Creatinine monitoring [employer] [place], [place] Start: 05-26-2021 HbA1c (Bld) [Mass fraction] A1C test (Diabetic or Prediabetic) [facility] [place] Start: 05-26-2021 Lipid panel Lipid screen [facility] [place] Start: 05-26-2021 Potassium monitoring Potassium monitoring [facility] [place] Start: 05-01-2021 Diabetic foot examination Diabetic foot exam [facility] [place] Start: 05-01-2021 Diabetic retinal exam Diabetic retinal exam [place], [place] Start: 04-15-[address] [facility] Work Phone: Start: 03-20-2021 Creatinine measurement Creatinine monitoring [facility] [place] Start: 02-26-2021 Creatinine measurement Creatinine monitoring [place], [place] Start: 02-26-2021 HbA1c (Bld) [Mass fraction] A1C test (Diabetic or Prediabetic) [place], [place] Start: 02-26-2021 Lipid panel Lipid screen [place] Start: 02-26-2021 Potassium monitoring Potassium monitoring [place] Start: 12-31-2020 Creatinine measurement Creatinine monitoring [place] Start: 12-31-2020 HbA1c (Bld) [Mass fraction] A1C test (Diabetic or Prediabetic) [place] Start: 12-31-2020 Potassium monitoring Potassium monitoring [place] Start: 12-01-2020 End: 12-01-2020 Office Visit 12/01/2020 Office Visit Internal Medicine Cathleen Cooney MD [address] [place] [address] [phone] Jeanette Cooney MD [facility] Start: 11-29-2020 DTaP/Tdap/Td vaccine (1 - Tdap) DTaP/Tdap/Td vaccine (1 - Tdap) [place] Comment on above: Postponed from 11/05/1970 (Patient Refus ed) Start: 11-29-2020 Pneumococcal 65+ years Vaccine (1 of 1 - PPSV23) Pneumococcal 65+ years Vaccine (1 of 1 - PPSV23) [place] Comment on above: Postponed from 11/05/2016 (Patient Refus ed) Start: 11-29-2020 Shingles Vaccine (1 of 2) Shingles Vaccine (1 of 2) [place], [place] Comment on above: Postponed from 11/05/2001 (Patient Refus ed) Start: 11-27-2020 Creatinine measurement Creatinine monitoring [place] Start: 11-27-2020 Diabetic microalbuminuria test Diabetic microalbuminuria test [place] Start: 11-27-2020 HbA1c (Bld) [Mass fraction] A1C test (Diabetic or Prediabetic) [place] Start: 11-27-2020 Lipid panel Lipid [place] Start: 11-27-2020 Potassium monitoring Potassium monitoring [place] Start: 08-16-2020 Colon Cancer Screen FIT/FOBT Colon Cancer Screen FIT/FOBT [place] Start: 08-16-2020 Screening for malignant neoplasm of colon [facility] Start: 06-26-2020 End: 06-26-2020 Office Visit 06/26/2020 Office Visit Neurology Ann Marie Hawkins MD [address] [place] [address] [facility] [place] [address] [facility] Start: 06-12-2020 End: 06-12-2020 Appointment 06/12/2020 Appointment Stress Lab [facility] Start: 05-29-2020 End: 05-29-2020 Office Visit 05/29/2020 Office Visit Internal Medicine Cathleen Cooney MD [address] [place] [address] Jeanette Cooney MD [facility] Start: 05-27-2020 End: 05-27-2020 Hospital Encounter [facility] Comment on above: COLONOSCOPY DIAGNOSTIC Start: 05-25-2020 [object Object] Diabetic foot exam [place] Start: 05-25-2020 Diabetic foot examination Diabetic foot exam [place] Start: 05-21-2020 A1C test (Diabetic or Prediabetic) A1C test (Diabetic or Prediabetic) [place] Start: 05-21-2020 Creatinine monitoring Creatinine monitoring [place] Start: 05-21-2020 Diabetic microalbuminuria test Diabetic microalbuminuria test [place] Start: 05-21-2020 Lipid screen Lipid screen [place] Start: 05-21-2020 Potassium monitoring Potassium monitoring [place] Start: 04-15-2020 Influenza vaccination [place] Start: 03-24-2020 End: 03-24-2020 Office Visit 03/24/2020 Office Visit Neurology Ann Marie Hawkins MD [address] [place] [address] [facility] Start: 01-30-2020 A1C test (Diabetic or Prediabetic) A1C test (Diabetic or Prediabetic) [place] Start: 01-30-2020 Creatinine monitoring Creatinine monitoring [place] Start: 01-30-2020 Diabetic microalbuminuria test Diabetic microalbuminuria test [place] Start: 01-30-2020 Lipid screen Lipid screen [place] Start: 01-30-2020 Potassium monitoring Potassium monitoring [place] Start: 01-04-2020 End: 01-04-2020 Virtual Visit 01/04/2020 Virtual Visit Internal Medicine Cathleen Cooney MD [address] [place], [place] [phone] [facility] Start: 11-30-2019 End: 11-30-2019 Telemedicine [facility] Start: 05-25-2019 End: 05-25-2019 Office Visit 05/25/2019 Office Visit Internal Medicine Cathleen Cooney MD [address] [place] [address] [phone] [facility] Start: 04-21-2019 Colon Cancer Screen FIT/FOBT Colon Cancer Screen FIT/FOBT [place] Start: 04-15-2019 Influenza vaccination Flu vaccine (#1) [place] Start: 03-16-2019 [object Object] Diabetic foot exam [place] Start: 11-05-2016 Pneumococcal 65+ years Vaccine (1 of 1 - PPSV23) Pneumococcal 65+ years Vaccine (1 of 1 - PPSV23) [place] Start: 11-05-2016 Pneumococcal 65+ years Vaccine (1 of 2 - PCV13) Pneumococcal 65+ years Vaccine (1 of 2 - PCV13) [place] Start: 11-05-2016 Pneumococcal Vaccine: 65+ (1 of 1 - PCV) Pneumococcal Vaccine: 65+ (1 of 1 - PCV) [facility] Start: 11-05-2016 PNEUMOCOCCAL: 65+ (1 - PCV) PNEUMOCOCCAL: 65+ (1 - PCV) [facility] Start: 2011 Hepatitis B vaccination HEP B VACCINE (1 of 3 - Risk 3-dose series) [facility] Start: 2011 RSV Vaccine (1 - 1-dose 60+ series) RSV Vaccine (1 - 1-dose 60+ series) [facility] Start: 2011 RSV Vaccine (1 - Risk 60-74 years 1-dose series) RSV Vaccine (1 - Risk 60-74 years 1-dose series) [facility] Start: 11-05-2001 Prostate specific antigen measurement PROSTATE CANCER SCREENING DISCUSSION [facility] Start: 11-05-2001 Shingles Vaccine (1 of 2) Shingles Vaccine (1 of 2) [place] Start: 11-05-2001 SHINGRIX VACCINE (1 of 2) SHINGRIX VACCINE (1 of 2) [facility] Start: 11-05-2001 Zoster vaccine hzv live for subcutaneous use ZOSTER (SHINGLES) VACCINE (1 of 2) [facility] Start: 11-05-1996 COLOGUARD (FIT-DNA) COLOGUARD (FIT-DNA) [facility] Start: 11-05-1996 Colonoscopy COLONOSCOPY [facility] [facility] Start: 11-05[facility]1996 COLORECTAL CANCER SCREENING COLORECTAL CANCER SCREENING [facility] Start: 11-05-[address] COLONOGRAPHY [facility] Start: 11-05-1996 FECAL OCCULT BLOOD FECAL OCCULT BLOOD [facility] Start: 11-05-1996 Screening for malignant neoplasm of colon [facility] Start: 11-05-1996 SIGMOIDOSCOPY SIGMOIDOSCOPY [facility] Start: 11-05-1986 LIPID SCREEN LIPID SCREEN [facility] Start: 11-05-1970 DTaP/Tdap/Td vaccine (1 - Tdap) DTaP/Tdap/Td vaccine (1 - Tdap) [place] Start: 11-05-1970 Pneumococcal Vaccine: 50+ (1 of 2 - PCV) Pneumococcal Vaccine: 50+ (1 of 2 - PCV) [facility] Start: 11-05-1970 Third diphtheria, tetanus and acellular pertussis (DTaP) vaccination TDAP (ADULT) [facility] Start: 11-05-1970 Urine microalbumin profile [facility] Start: 11-05-1969 Anxiety Screening Anxiety Screening [facility] Start: 11-05-1969 BP Controlled (<130/80) BP Controlled (<130/80) [facility]ic Start: 11-05-1969 HEPATITIS C SCREENING HEPATITIS C SCREENING [facility] Start: 11-05-1969 Hepatitis C screening Hepatitis C Screening [facility] Start: 11-05-1969 [facility] COVID-19 Vaccine (1) COVID-19 Vaccine (1) [facility] [employer] Phone: Start: 11-05-1962 DTaP/Tdap/Td vaccine (1 - Tdap) DTaP/Tdap/Td vaccine (1 - Tdap) [place] Start: 11-05-1961 Diabetic foot examination Diabetic Foot Exam [facility] Start: 11-05-1961 Diabetic retinal exam Diabetic retinal exam [place], [place] Start: 11-05-[address] [facility] Start: 11-05-1961 Hepatitis B screening Urine Albumin:Creatinine Ratio [facility] Start: 11-05-1957 Pneumococcal vaccination [facility] Start: 11-05-1957 Pneumococcal Vaccine: 65+ (1 of 2 - PCV) Pneumococcal Vaccine: 65+ (1 of 2 - PCV) [facility] Start: 11-05-1957 Pneumococcal Vaccine: 65+ Years (1 - PCV) Pneumococcal Vaccine: 65+ Years (1 - PCV) [facility] Start: 11-05-1957 Pneumococcal Vaccine: 65+ Years (1 of 2 - PCV) Pneumococcal Vaccine: 65+ Years (1 of 2 - PCV) [facility] Start: 05-08-1952 COVID-19 VACCINE (#1) COVID-19 VACCINE (#1) [facility] Start: 1950 Diabetic foot examination [facility] Start: 1951 Diabetic retinal eye exam [facility] Start: 1951 Glaucoma screening EYE EXAM [facility] Start: 1950 Lipid panel LIPIDS [facility] Start: 1951 LIPIDS LIPIDS [facility] Start: 1950 Microalbumin measurement, urine, quantitative URINE MICROALBUMIN TEST [facility] Start: 1950 Screening for malignant neoplasm of colon [facility] Start: 1950 Tetanus vaccination TETANUS [facility] Start: 1950 Urine screening for protein URINE MICROALBUMIN TEST [facility] Bacteria identified in Wound by Culture BACTERIAL CULTURE AND GRAM STAIN, ABSCESS AND WOUND (AEROBIC CULTURE) Microbiology Routine 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 1 Occurrences starting 02/14/2020 until 02/14/2020 COVID-19 Ambulatory COVID-19 Amb ulatory Lab Routine Lightheadedness Fever, unspecified fever cause Fatigue, unspecified type Viral syndrome 02/14/2020 11:26 AM EDT [facility] End: 07-28-2025 CT Head WO contrast CT BRAIN WO IVCON Radiology Routine Cognitive change 1 Occurrences starting 06/28/2024 until 07/28/2025 [facility] Work Phone: Comment on above: 1 Occurrences starting 06/28/2024 until 07/28/2025 End: 04-22-2020 Culture, Urine Culture, Urine Microbiology Routine Bladder wall thickening Anemia, unspecified type 1 Occurrences starting 04/22/2020 until 04/22/2020 [facility] on above: 1 Occurrences starting 04/22/2020 until 04/22/2020 Culture, Urine Culture, Urine Microbiology Routine Bladder wall thickening Anemia, unspecified type 04/22/2020 10:46 AM EDT [facility] [place] Hepatitis B virus luna rface Ag [Presence] in Serum or Plasma by Immunoassay [facility] Hepatitis C virus Ig G Ab [Presence] in Serum or Plasma by Immunoassay [facility] End: 09-19-2023 MR Lumbar spine WO and W contrast IV [facility] Work Phone: Comment on above: 1 Occurrences starting 09/19/2023 until 09/19/2023 End: 09-19-2023 MR Thoracic spine WO and W contrast IV [facility] Work Phone: Comment on above: 1 Occurrences starting 09/19/2023 until 09/19/2023 REVISION ARTHROPLAST Y KNEE REVISION ARTHROPLASTY KNEE Infection associated with internal left knee prosthesis, initial encounter [facility] OR UA DIP, URINE (POC) UA DIP, URIN E (POC) Lab Routine Screening for genitourinary condition 1 Occurrences starting 09/24/2024 [facility] Work Phone: Comment on above: 1 Occurrences starting 09/24/2024 UA DIP, URINE (POC) UA DIP, URIN E (POC) Lab Routine Screening for genitourinary condition 1 Occurrences starting 10/09/2024 [facility] Work Phone: Comment on above: 1 Occurrences starting 10/09/2024 URINALYSIS, REFLEX MICROSCOPIC URINALYSIS, REFLEX MICROSCOPIC Lab Routine Screening for genitourinary condition Ordered: 11/29/2023 [facility] Work Phone: Comment on above: Ordered: 11/29/2023 [facility] Immunizations Immunization Date Immunization Notes Care Provider Geraldo pickard 09-21-2021 COVID-19 vaccine, TRUDI-SUCROSE, Pfizer, 0.3 ML Sarmad Finley MD Work Phone: [facility] 09-21-2021 SARS-CoV-2 (COVID-19 ) mRNA-1273 vaccine Dina Ortiz [facility] 11-21-2020 SARS-CoV-2 (COVID-19 ) mRNA BNT-162b2 vax Dina Ortiz [facility] 10-09-2020 SARS-CoV-2 (COVID-19 ) mRNA-1273 vaccine Dina Lue [facility] 08-15-2010 tetanus toxoid, unspecified formulation Cathleen Cooney [facility] NEGATED: Highlighted row has not occurred!09-18-2021 Hepatitis B vaccine (recombinant), CpG adjuvanted Sarmad Finley MD Work Phone: [facility] Comment on above: Deferred: Patient Re fused - Patient states he does not know why he needs this Payers Date Payer Category Payer Self-pay [id number] 2022 Medicaid [employer] MEDICARE A DVANTAGE [id number] 2021 Medicare [id number]. [id number] 2021 Medicare (Managed Care) [employer] [place] [id number] 2020 Unknown 2018 Unknown MEDICAL M[employer] M EDICAL MUTUAL ACCESS [id number] 2018-Present [phone] [address] [place] [address] [id number] [id number]. [id number] 2016 Unknown [id number] 1.2.840.206577.1.13.239.2. 7.3.590418.315 2014 Unknown [id number] 1959 Private Health Insurance [facility] [id number] 1951 Unknown [id number] 2.16.840.1.079073.3.579.2. 647 1951 Unknown [id number] 2.16.840.1.125846.3.579.2. 174 1951 Unknown [id number] 2.16.840.1.864730.3.579.2. 196 1951 Unknown [id number] 2.16.840.1.388903.3.579.2. 173 1951 Unknown [id number] 2.16.840.1.767601.3.579.2. 173 1951 Unknown [id number] 2.16.840.1.275835.3.579.2. 173 1951 Unknown [id number] 2.16.840.1.132011.3.579.2. 173 1951 Unknown [id number] 2.16.840.1.805810.3.579.2. 173 1951 Unknown [id number] 2.16.840.1.998639.3.579.2. 173 1951 Unknown [id number] 2.16.840.1.363961.3.579.2. 173 1951 Unknown [id number] 2.16.840.1.291435.3.579.2. 173 1951 Unknown [id number] 2.16.840.1.390766.3.579.2. 593 1951 Unknown [id number] 2.16.840.1.035699.3.579.2. 593 1951 Unknown [id number] 2.16.840.1.817673.3.579.2. 593 1951 Unknown [id number] 2.16.840.1.539274.3.579.2. 593 1951 Unknown [id number] 2.16.840.1.429964.3.579.2. 593 1951 Unknown [id number] 2.16.840.1.699456.3.579.2. 594 1951 Unknown [id number] 2.16.840.1.872442.3.579.2. 594 1951 Unknown [id number] 2.16.840.1.313001.3.579.2. 594 1951 Unknown [id number] 2.16.840.1.574364.3.579.2. 1259 1951 Unknown [id number] 2.16.840.1.406040.3.579.2. 1259 1951 Unknown [id number] 2.16.840.1.639065.3.579.2. 1259 1951 Unknown [id number] 2.16.840.1.060103.3.579.2. 1259 1951 Unknown [id number] 2.16.840.1.216905.3.579.2. 1259 1951 Unknown [id number] 2.16.840.1.602034.3.579.2. 727 1951 Unknown [id number] 2.16.840.1.802989.3.579.2. 727 1951 Unknown [id number] 2.16.840.1.473902.3.579.2. 727 Unknown [id number] 2.16.840.1.358707.3.579.2. 531 Unknown [id number] 2.16.840.1.950115.3.579.2. 531 Unknown [id number] 2.16.840.1.294097.3.579.2. 531 Unknown [id number] 2.16.840.1.742768.3.579.2. 531 Social History Date Type Detail Facility Start: 11-30-2019 End: 01-23-2024 Tobacco smoking status NHIS Never smoker [place] Start: 11-30-2019 End: 07-20-2024 Alcohol intake Current drinker of alcohol (finding) [place] Start: 11-30-2019 End: 12-29-2020 History SDOH Financial 5 [place] Start: 11-30-2019 End: 12-29-2020 History SDOH Food Worry 1 [place] Start: 11-30-2019 End: 12-29-2020 History SDOH Transport Med 2 [place] Start: 1950 Sex Assigned At Male [place] Exposure to SARS-CoV-2 (event) Unable to assess [place] Start: 02-14-2020 End: 01-23-2024 Tobacco use and exposure Never used [place] Exposure to SARS-CoV-2 (event) Yes [place] Start: 02-16-2019 End: 09-21-2023 Alcohol intake Yes [place] Start: 1950 Sex Assigned At Not on file [place] Start: 12-01-2020 End: 09-21-2023 Alcohol intake [facility] Tobacco smoking status Never [facility] Start: 12-19-2018 End: 12-29-2020 History SDOH Alcohol Std Drinks 3 [facility] Start: 08-17-2021 History SDOH Alcohol Comment 6-PACK A DAY (quit 2 years ago 01/20/2020) [facility] Start: 02-06-2021 Alcohol intake Not [facility]ked [facility] Start: 12-29-2020 History SDOH Alcohol Std Drinks 98 [facility] Start: 12-29-2020 History SDOH Physica l Activity DPW 0 [facility] Start: 12-29-2020 Education 20 [facility] Start: 11-23-2020 Gender identity Identifies as male gender (finding) [facility] Start: 04-21-2021 Sexual orientation Heterosexual (fin ding) [facility] Are you now , , , , never or living with a partner? [facility] How often to you hav e a drink containing alcohol? Never [facility] Do you feel stress - tense, restless, nervous, or anxious, or unable to sleep at night because your mind is troubled all the time - these days [OSQ] Very much [facility] (I/We) worried whether (my/our) food would run out before (I/we) got money to buy more. Never true [facility] In the past 12 months, was there a time when you were not able to pay the mortgage or rent on time? No [facility] Start: 09-06-2023 End: 09-11-2024 Alcohol intake Ex-drinker (finding) [facility] How often to you hav e a drink containing alcohol? 4 or more times a week [facility] How many standard drinks containing alcohol do you have on a typical day? 1 or 2 [facility] How hard is it for you to pay for the very basics like food, housing, medical care, and heating Not very hard [facility] Do you feel stress - tense, restless, nervous, or anxious, or unable to sleep at night because your mind is troubled all the time - these days [OSQ] To some extent [facility] Start: 02-09-2024 Alcohol Comment 2x/week [facility] How often to you hav e a drink containing alcohol? 2-3 time sa week [facility] How many standard drinks containing alcohol do you have on a typical day? 3 or 4 [facility] How often do you hav e 6 or more drinks on 1 occasion? Less than monthly [facility] How hard is it for you to pay for the very basics like food, housing, medical care, and heating Somewhat hard [facility] NEGATED: Highlighted rowStart: MARILYN History of tobacco use Passive smoker [facility] Medical Equipment Procedure Code Equipment Code Equipment Original Text Equipment Identifier Dates 1 each by In Vit ro route daily Pt uses [id number] freedom lite and true metrix blood glucose test strips [id number] Start: 02-07-[address] us 1x1 Matrix - [id number] Start: 01-02-2019 Fibergraft Bg Putty [id number] Start : 01-02-2019 Concorde Proti 5 Dg 9x9x23 Mm [id number] Start: 01-02-2019 Concorde Proti 5 Dg 9x9x23 Mm [id number] Start: 01-02-2019 Screw 1-Innie Po lyax Ti 6.0x50 - [id number] Start: 01-02-2019 Screw Set 1-Inni e - [id number] Start: 01-02-2019 Ed Mmsi Prebent 5.5 X45mm T - [id number] Start: 01-02-2019 Ed Mmsi Prebent 5.5 X45mm T - [id number] Start: 01-02-2019 Lead Intrstim Mr i 28cm - [id number] Start: 02-09-2024 Interstim X Rech arge Free Neurostimulator - [id number] Start: 03-01-2024 Goals Date Patient Goal Desired Activity /State Personal health goal Functional Status Date Assessment Result Facility 09-13-2024 Functional Status N/A [facility] 06-22-2024 Functional Status N/A [facility] 08-03-2023 Functional Status N/A [facility] 05-26-2023 Functional Status N/A [facility] 07-28-2022 Functional Status N/A [facility] 06-24-2022 Functional Status N/A [facility] 05-05-2022 Functional Status N/A [facility] 02-17-2022 Functional Status N/A [facility] Clinical Notes 11-10-2021 to 11-22-2024 Alex Newman MD - 11/22/2024 1:09 PM EDTSBroderick gilmore MD - 11/19/2024 11:30 AM EDTTelephone Encounter - Orly De Oliveira - 11/07/2024 11:44 AM EDTPatient Instructions Note Date & Type Note Facility 11-22-2024 Note HNO ID: [id number] Author: ALEX NEWMAN MD Service: ? Author Type: Physician Type: Progress Notes Filed: 11/22/2024 13:41 Note Text: snm infection was seeing what would happen as patient was doing well after opening and secondary healing feels great working just noted some blood today discussed needs to be removed he does not want to remove it as working so well agreed to incise and drain and remove any unhealthy tissue and then he has time to make decision. Remove (I recommended) or keep doing this. Pt prepped and draped. 10 cc lidocaine injected along prior incision. incised down to IPG some necrotic tissue remove. one small bleeder cauterized. dressed. to change dressings daily. he will call me otherwise see in 1 month Alex Newman MD [facility] 11-22-2024 History of Presen t illness Narrative Images from the original note were not included. snm infection was seeing what would happen as patient was doing well after opening and secondary healing feels great working just noted some blood today discussed needs to be removed he does not want to remove it as working so well agreed to incise and drain and remove any unhealthy tissue and then he has time to make decision. Remove (I recommended) or keep doing this. Pt prepped and draped. 10 cc lidocaine injected along prior incision. incised down to IPG some necrotic tissue remove. one small bleeder cauterized. dressed. to change dressings daily. he will call me otherwise see in 1 month Alex Newman MD documented in this encounter [facility] 11-19-2024 Note HNO ID: [id number] Author: BRODERICK BENITEZ MD Service: ? Author Type: Physician Type: Progress Notes Filed: 11/19/2024 11:37 Note Text: [facility] [address] [place], [place] [address] National Consultation Service 11/19/2024 Report visit after additional tests and consultations. VIRTUAL VISIT PROGRESS NOTE This is a virtual visit using [employer] Video Visit. It required patient-provider interaction for the medical decision making as documented below. I have communicated my name and active licensure. The patient's identity and physical location were verified at the time of this visit. Either the patient or their legal sales representative publications has been informed of the risks and benefits of -- and alternatives to -- treatment through a remote evaluation and consents to proceed with the evaluation remotely. Madan is a 74-year-old male presenting for a follow-up visit. Follow-Up: - Recently treated by urology team for an infection, including MRSA. - Underwent debridement of necrotic tissue. - Currently on two antibiotics. - Reports improvement in cognitive abilities. - Taking B12 as prescribed. - Awaiting blood work results. HISTORY REVIEWED (electronic chart updated): PAST MEDICAL HISTORY Diagnosis Date Diabetes (HCC) Hypertension Sleep apnea PAST SURGICAL HISTORY Procedure Laterality Date PAST SURGICAL HISTORY OF kidney stone PAST SURGICAL HISTORY OF colon surgery due to peritonitis PAST SURGICAL HISTORY OF back x 4 PAST SURGICAL HISTORY OF left TKA FAMILY HISTORY Problem Relation Age of Onset Kidney Disease Mother Heart disease Father Heart disease Brother Social History Tobacco Use Smoking status: Never Smokeless tobacco: Never Vaping Use Vaping status: Never Used Substance Use Topics Alcohol use: Yes Comment: 2x/week Drug use: Not Currently Current Outpatient Medications Medication Sig cyanocobalamin (VITAMIN B-12) 1,000 mcg tab Take 1 tablet by mouth once daily. levothyroxine (SYNTHROID) 125 mcg tablet Take 1 tablet by mouth once daily. lisinopril (ZESTRIL) 10 mg tablet Take 10 mg by mouth once daily. GABAPENTIN, BULK, MISC [address] (PROTONIX) 40 mg tablet Take 40 mg by mouth two times a day. trospium (SANCTURA) 20 mg tablet Take 20 mg by mouth daily at bedtime. multivitamin tablet Take 1 tablet by mouth once daily. CPAP/BIPAP/OTHER autopap [id number] [facility] [employer] allopurinol (ZYLOPRIM) 300 mg tablet Take 300 mg by mouth. atorvastatin (LIPITOR) 20 mg tablet Take 20 mg by mouth. metFORMIN (GLUCOPHAGE) 1,000 mg tablet Take 1,000 mg by mouth once daily. SITagliptin (JANUVIA) 100 mg tablet Take 100 mg by mouth once daily. buPROPion XL (WELLBUTRIN XL) 150 mg 24 hr tablet Take 150 mg by mouth. venlafaxine ER (EFFEXOR XR) 75 mg 24 hr capsule Take 75 mg by mouth once daily. No current facility-administered medications for this visit. ALLERGIES Allergen Reactions Amoxacillin [Amoxic* Unknown Augmentin [Amoxicil* Other: See Comments Nausea REVIEW OF SYSTEMS: GENERAL: no fever PHYSICAL EXAMINATION: VIDEO EXAM: (if completed, performed via video enabled technology) GENERAL: alert and appropriate, in no distress, well-hydrated, well nourished, and happy, smiling, interactive RESPIRATORY: breathing non-labored ASSESSMENT/PLAN: 1. Retention of urine - ICD9: 788.20, ICD10: R33.9 (primary diagnosis) 2. Methicillin resistant Staphylococcus aureus infection - ICD9: 041.12, ICD10: A49.02 3. Foreign body of buttock with infection, subsequent encounter - ICD9: V58.89, 911.7, ICD10: S30.850D, L08.9 - Continue taking B12 as prescribed. - Complete your blood work before your next appointment with your general practitioner. - Next follow-up appointment is scheduled in 6 months. He is very pleased with the urological care and his improvement. I spent a total of 30 minutes on the date of the service which included preparing to see the patient, [id number] patient care, completing clinical documentation, obtaining and/or reviewing separately obtained history, performing a medically appropriate examination, counseling and educating the patient/family/caregiver, and care coordination (not separately reported) Broderick Benitez MD [facility] 11-19-2024 History of Presen t illness Narrative [facility] [address] [place], [place] [address] National Consultation Service 11/19/2024 Report visit after additional tests and consultations. VIRTUAL VISIT PROGRESS NOTE This is a virtual visit using [employer] Video Visit. It required patient-provider interaction for the medical decision making as documented below. I have communicated my name and active licensure. The patient's identity and physical location were verified at the time of this visit. Either the patient or their legal sales representative publications has been informed of the risks and benefits of -- and alternatives to -- treatment through a remote evaluation and consents to proceed with the evaluation remotely. Madan is a 74-year-old male presenting for a follow-up visit. Follow-Up: - Recently treated by urology team for an infection, including MRSA. - Underwent debridement of necrotic tissue. - Currently on two antibiotics. - Reports improvement in cognitive abilities. - Taking B12 as prescribed. - Awaiting blood work results. HISTORY REVIEWED (electronic chart updated): PAST MEDICAL HISTORY Diagnosis Date Diabetes (HCC) Hypertension Sleep apnea PAST SURGICAL HISTORY Procedure Laterality Date PAST SURGICAL HISTORY OF kidney stone PAST SURGICAL HISTORY OF colon surgery due to peritonitis PAST SURGICAL HISTORY OF back x 4 PAST SURGICAL HISTORY OF left TKA FAMILY HISTORY Problem Relation Age of Onset Kidney Disease Mother Heart disease Father Heart disease Brother Social History Tobacco Use Smoking status: Never Smokeless tobacco: Never Vaping Use Vaping status: Never Used Substance Use Topics Alcohol use: Yes Comment: 2x/week Drug use: Not Currently Current Outpatient Medications Medication Sig cyanocobalamin (VITAMIN B-12) 1,000 mcg tab Take 1 tablet by mouth once daily. levothyroxine (SYNTHROID) 125 mcg tablet Take 1 tablet by mouth once daily. lisinopril (ZESTRIL) 10 mg tablet Take 10 mg by mouth once daily. GABAPENTIN, BULK, MISC [address] (PROTONIX) 40 mg tablet Take 40 mg by mouth two times a day. trospium (SANCTURA) 20 mg tablet Take 20 mg by mouth daily at bedtime. multivitamin tablet Take 1 tablet by mouth once daily. CPAP/BIPAP/OTHER autopap [id number] [facility] Contact At Once! aureliano allopurinol (ZYLOPRIM) 300 mg tablet Take 300 mg by mouth. atorvastatin (LIPITOR) 20 mg tablet Take 20 mg by mouth. metFORMIN (GLUCOPHAGE) 1,000 mg tablet Take 1,000 mg by mouth once daily. SITagliptin (JANUVIA) 100 mg tablet Take 100 mg by mouth once daily. buPROPion XL (WELLBUTRIN XL) 150 mg 24 hr tablet Take 150 mg by mouth. venlafaxine ER (EFFEXOR XR) 75 mg 24 hr capsule Take 75 mg by mouth once daily. No current facility-administered medications for this visit. ALLERGIES Allergen Reactions Amoxacillin [Amoxic* Unknown Augmentin [Amoxicil* Other: See Comments Nausea REVIEW OF SYSTEMS: GENERAL: no fever PHYSICAL EXAMINATION: VIDEO EXAM: (if completed, performed via video enabled technology) GENERAL: alert and appropriate, in no distress, well-hydrated, well nourished, and happy, smiling, interactive RESPIRATORY: breathing non-labored ASSESSMENT/PLAN: 1. Retention of urine - ICD9: 788.20, ICD10: R33.9 (primary diagnosis) 2. Methicillin resistant Staphylococcus aureus infection - ICD9: 041.12, ICD10: A49.02 3. Foreign body of buttock with infection, subsequent encounter - ICD9: V58.89, 911.7, ICD10: S30.850D, L08.9 - Continue taking B12 as prescribed. - Complete your blood work before your next appointment with your general practitioner. - Next follow-up appointment is scheduled in 6 months. He is very pleased with the urological care and his improvement. I spent a total of 30 minutes on the date of the service which included preparing to see the patient, [id number] patient care, completing clinical documentation, obtaining and/or reviewing separately obtained history, performing a medically appropriate examination, counseling and educating the patient/family/caregiver, and care coordination (not separately reported) Broderick Benitez MD documented in this encounter [facility] 11-07-2024 Telephone encounter Note Spoke with patient - Dr. Newman wanted him to scheduled for a apt this week or next. Scheduled him on TuesdayNovember 13 at [facility]. Patient accepted. He also wanted to let Dr. Lira know that he is sorry that he has tried calling him 2 times now but he didn't keep his number to call him back. He wanted to let him know though that everything is fine, there is no seepage, and wound is healing fine. Thanks [facility] 11-07-2024 Miscellaneous Notes Spoke with patient - Dr. Newman wanted him to scheduled for a apt this week or next. Scheduled him on TuesdayNovember 13 at [facility]. Patient accepted. He also wanted to let Dr. Lira know that he is sorry that he has tried calling him 2 times now but he didn't keep his number to call him back. He wanted to let him know though that everything is fine, there is no seepage, and wound is healing fine. Thanks Patient was returning a call from earlier today regarding his appointment with Dr. Newman. Unfortunately I could not help him as there was no documentation as to what the call was for. Do either of you know why this patient was being called. Thank you, Seferino documented in this encounter [facility] 2024 Telephone encounter Note Patient was returning a call from earlier today regarding his appointment with Dr. Newman. Unfortunately I could not help him as there was no documentation as to what the call was for. Do either of you know why this patient was being called. Thank you, Seferino [facility] 10-15-2024 Telephone encounter Note Patient was called this morning. He reports doing great He has no pain or erythema at the IPG site No discharge. Finished his antibiotics course yesterday Will see him in clinic in 2 weeks for wound check Patient was educated to call us back in case he feels something is going wrong or he has any signs or erythema, discharge or swelling at the IPG site. Paramjit Lira MD Fellow [facility] Work Phone: 10-15-2024 Miscellaneous Notes Patient was called this morning. He reports doing great He has no pain or erythema at the IPG site No discharge. Finished his antibiotics course yesterday Will see him in clinic in 2 weeks for wound check Patient was educated to call us back in case he feels something is going wrong or he has any signs or erythema, discharge or swelling at the IPG site. Paramjit Lira MD Fellow documented in this encounter [facility] 10-09-2024 Note HNO ID: [id number] Author: ALEX NEWMAN MD Service: ? Author Type: Physician Type: Progress Notes Filed: 10/09/2024 11:04 Note Text: 2 weeks sp debridement/irrigation of snm device.pt did not want out loosely approximated with one stitch doing well no pain no further drainage 5 more days of clinda (was mrsa) PE - healing very well. no tenderness or erythema suture removed will fu via phone in 1 week fu in person in 3 weeks Alex Newman MD [facility] 10-09-2024 Note HNO ID: [id number] Author: KIMI MCKENNA OCCA Service: ? Author Type: Vacation Sales Advisor Type: Progress Notes Filed: 10/09/2024 11:04 Note Text: Post Void Residual done on patient with 75 cc residual volume remaining. notified. WILMAR Andersen [facility] 10-09-2024 Note Patient Outreach (UR OLMN) SARMAD ALMEIDA ([id number]) 1950 M Date Time Provider Department 10/09/24 ALEX NEWMAN During your visit today, we recorded the following information about you: Allergies As of Date: 10/09/2024 Noted Allergy Reaction AMOXACILLIN (AMOXICILLIN) 04/13/2016 16 - Unknown AUGMENTIN (AMOXICILLIN-POT CLAVUL*04/13/2016 14 - Other: See Comments Comments: Nausea Date Reviewed: 10/09/2024 Reviewed by: Kimi Mckenna OCCA - Fully Assessed Visit Diagnosis:Screening for genitourinary condition [Z13.89] Order(s):UA DIP, URINE (POC) [1610549] Order #: [id number] FUTURE Prescriptions as of 10/12/2024 - doxycycline hyclate (VIBRAMYCIN) 100 mg capsule Take 1 capsule (100 mg) by mouth two times a day for 14 days. - cyanocobalamin (VITAMIN B-12) 1,000 mcg tab Take 1 tablet by mouth once daily. - levothyroxine (SYNTHROID) 125 mcg tablet Take 1 tablet by mouth once daily. - lisinopril (ZESTRIL) 10 mg tablet Take 10 mg by mouth once daily. - GABAPENTIN, BULK, MISC 300 mg BID - pantoprazole DR (PROTONIX) 40 mg tablet Take 40 mg by mouth two times a day. - trospium (SANCTURA) 20 mg tablet Take 20 mg by mouth daily at bedtime. - multivitamin tablet Take 1 tablet by mouth once daily. - CPAP/BIPAP/OTHER autopap [id number] [facility] [place] Contact At Once! tiffin - allopurinol (ZYLOPRIM) 300 mg tablet Take 300 mg by mouth. - atorvastatin (LIPITOR) 20 mg tablet Take 20 mg by mouth. - metFORMIN (GLUCOPHAGE) 1,000 mg tablet Take 1,000 mg by mouth once daily. - SITagliptin (JANUVIA) 100 mg tablet Take 100 mg by mouth once daily. - buPROPion XL (WELLBUTRIN XL) 150 mg 24 hr tablet Take 150 mg by mouth. - venlafaxine ER (EFFEXOR XR) 75 mg 24 hr capsule Take 75 mg by mouth once daily. Meds Comments as of 01/23/2024: Pt poor historian with meds, initially stated meds were correct, [facility] had list that was somewhat different than [facility] meds, all updated per Cole[facility]'s med list Problem List As Of Date 10/09/2024 Noted Resolved ADD (attention deficit hyperactivity disorder, *12/07/2016 Snoring [R06.83] 12/30/2020 Excessive daytime sleepiness [G47.19] 12/30/2020 Retention of urine [R33.9] 11/11/2023 HTN (hypertension) [I10] 01/23/2024 HLD (hyperlipidemia) [E78.5] 01/23/2024 Acquired hypothyroidism [E03.9] 01/23/2024 Depression [F32.A] 01/23/2024 LELEN on CPAP [G47.33] 01/23/2024 Anemia [D64.9] 08/02/2021 GERD (gastroesophageal reflux disease) [K21.9] 09/25/2021 Gout [M10.9] 02/21/2024 Type 2 diabetes mellitus without complication (*03/24/2011 Gait difficulty [R26.9] 02/21/2024 Foreign body of buttock with infection [S30.850*09/24/2024 Encounter Status:Closed by RHEA GUZMANUSER on 10/12/24 [facility] 09-28-2024 Telephone encounter Note Patient was called to follow up with him for the culture that was collected on Tuesday. 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 I send Doxycycline to his pharmacy No answer Left a Voice message. Paramjit Lira MD Fellow [facility] 09-28-2024 Miscellaneous Notes Patient was called to follow up with him for the culture that was collected on Tuesday. 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 I send Doxycycline to his pharmacy No answer Left a Voice message. Paramjit Lira MD Fellow documented in this encounter [facility] 09-28-2024 Telephone encounter Note Patient is switched to doxycycline [facility] 09-28-2024 Miscellaneous Notes Patient is switched to doxycycline documented in this encounter [facility] 09-28-2024 Telephone encounter Note Patient is scheduled for 2wk f/u with Dr. Newman. Thanks [facility] 09-28-2024 Miscellaneous Notes Patient is scheduled for 2wk f/u with Dr. Newman. Thanks documented in this encounter [facility] 09-26-2024 Telephone encounter Note Patient was called today to follow up with him after having debridement for the incision over his IPG. He is doing good He has no fevers or chills No pain at the surgical site No bother from the device Changing dressing daily with no evidence of bleeding according to the patient Taking bactrim twice daily Patient was educated to call back incase he is worried or concerned or is having any new symptoms He reports understanding Paramjit Lira MD Fellow [facility] 09-26-2024 Miscellaneous Notes Patient was called today to follow up with him after having debridement for the incision over his IPG. He is doing good He has no fevers or chills No pain at the surgical site No bother from the device Changing dressing daily with no evidence of bleeding according to the patient Taking bactrim twice daily Patient was educated to call back incase he is worried or concerned or is having any new symptoms He reports understanding Paramjit Lira MD Fellow documented in this encounter [facility] 09-25-2024 Telephone encounter Note Patient was called this morning to follow up with him after he was seen in clinic yesterday for concern of wound infection at the site of IPG and debridement was done and was given antibiotics No answer Left a Paramjit Lira MD Fellow [facility] 09-25-2024 Miscellaneous Notes Patient was called this morning to follow up with him after he was seen in clinic yesterday for concern of wound infection at the site of IPG and debridement was done and was given antibiotics No answer Left a Paramjit Lira MD Fellow documented in this encounter [facility] 09-24-2024 Note HNO ID: [id number] Author: ALEX NEWMAN MD Service: ? Author Type: Physician Type: Progress Notes Filed: 10/04/2024 09:24 Note Text: Surgeon(s) and Sweeper Operator Highways(s): Dr. Rambo Lira MD [facility] Fellow Preoperative Diagnosis: OAB, Postoperative Diagnosis: * Same PROCEDURE AND ANESTHESIA TYPE: Debridement of skin and tissue above the Implantable pulse generator OPERATIVE INDICATIONS: This is a very pleasant patient with a history of OAB . He had his interstim implanted on 03/01/24 he had >50% improvement in his symptoms.He is here today for a concern as the skin above the IPG site has erythema and some necrotic tissus . The procedure materials, personnel, indications, alternatives, risks, and benefits were described in detail. Consent was obtained. The patient now presents for definitive therapy. OPERATIVE FINDINGS: Debridement of skin and subcutaneous tissues Estimated Blood Loss: 5 cc PROCEDURE AND TECHNIQUE: The patient was carefully placed in the prone position, and her gluteal area was prepped and draped in standard sterile fashion. A timeout was performed and the patient, side, procedure and indication were reviewed and correct. The operative field was prepped and draped. The incision above the IPG site on the right gluteal area, showed areas of erythema and necrosis. After discussion with the patient about the risks, we performed debridement pf some skin and subcutaneous tissues and removal of all the necrotic tissues, using scissors to a depth of about cm. However, after debridement the pocket of the IPG was exposed and IPG was seen. We then irrigated the wound with normal saline. We discussed that typically we would proceed to remove the entire device and lead and that there were risks of keeping the device in at this point as it is exposed. However, the patient is very satisfied with the device and prefers not to take it out at this point. He has no fevers or pain from the device. After long discussion, we decided to keep the device in and see if things would heal. One simple stitch of nylon was used just to approximate the skin (keeping the sking edge apart so it can drain to the outside). Dressing was applied No complications. I/primary surgeon/proceduralist performed the procedure with assistance. Plan: Antibiotics Bactrim was started for 14 days Will keep close monitoring with daily phone calls and 2 weeks follow up Patient was educated to call back or present back if he develops signs of infections, fevers or pain Alex Newman MD [facility] 09-24-2024 History of Presen t illness Narrative Images from the original note were not included. Surgeon(s) and Sweeper Operator Highways(s): Dr. Rambo Lira MD [facility] Fellow Preoperative Diagnosis: OAB, Postoperative Diagnosis: * Same PROCEDURE AND ANESTHESIA TYPE: Debridement of skin and tissue above the Implantable pulse generator OPERATIVE INDICATIONS: This is a very pleasant patient with a history of OAB . He had his interstim implanted on 03/01/24 he had >50% improvement in his symptoms.He is here today for a concern as the skin above the IPG site has erythema and some necrotic tissus . The procedure materials, personnel, indications, alternatives, risks, and benefits were described in detail. Consent was obtained. The patient now presents for definitive therapy. OPERATIVE FINDINGS: Debridement of skin Estimated Blood Loss: 5 cc PROCEDURE AND TECHNIQUE: The patient was carefully placed in the prone position, and her gluteal area was prepped and draped in standard sterile fashion. A timeout was performed and the patient, side, procedure and indication were reviewed and correct. The operative field was prepped and draped. The incision above the IPG site on the right gluteal area, showed areas of erythema and necrosis. After discussion with the patient about the risks, we performed debridement and removal of all the necrotic tissues, using scissors. However, after debridement the pocket of the IPG was exposed and IPG was seen. We then irrigated the wound with normal saline. We discussed that typically we would proceed to remove the entire device and lead and that there were risks of keeping the device in at this point as it is exposed. However, the patient is very satisfied with the device and prefers not to take it out at this point. He has no fevers or pain from the device. After long discussion, we decided to keep the device in and see if things would heal. One simple stitch of nylon was used just to approximate the skin (keeping the sking edge apart so it can drain to the outside). Dressing was applied No complications. I/primary surgeon/proceduralist performed the procedure with assistance. Plan: Antibiotics Bactrim was started for 14 days Will keep close monitoring with daily phone calls and 2 weeks follow up Patient was educated to call back or present back if he develops signs of infections, fevers or pain Alex Newman MD Patient ID with (2) Identifiers, Verified by: Shannon Banks RN Actual procedure/procedure scheduled: Yes Performing provider/scheduled provider: Yes Patient was roomed in: [facility] Tent Finisher offered:Patient declines Patient arrived in the room at: 12:00 Patient ready for procedure: 12:30 The procedure started at ( Time Only): 12:50 The procedure ended at: 1315 Was the procedure delayed: Yes, doctor in other room ProNox Utilized: No The patient left the procedure room at: 1345 Shannon Banks RN PRE I&D NURSE ASSESSMENT Latex Allergy: No Heart valve replacement: No Joint replacement: No Shannon Banks RN PROCEDURE PREP Patient I.D. with two(2) identifiers verified by: Shannon Banks RN 154/76 P 80 Shannon Banks RN UNIVERSAL PROTOCOL / SAFETY CHECKLIST Procedure to be performed: I and D Sign in Communication: Completed Time Out: Team Confirms the Correct Patient, Correct Procedure, Correct Site and Site Marking, Correct Position (if applicable) Sign Out Discussion: Completed Shannon Banks RN POST I&D NURSE ASSESSMENT Present along with physician during procedure exam. Shannon Banks RN Condition Post Procedure: satisfactory Level of consciousness: awake, oriented PATIENT EDUCATION The following was evaluated; Motivation to Learn: Eager Family/Significant Other Support: None - Unavailable/disinterested Cognitive Ability: Alert/Oriented Method of Instruction: Individual instruction The Following Influencing Factors Were Barriers To This Education Session: None The Following Physical Limitations Were Barriers To This Education Session: None Instruction Provided To: Patient Slab Lifting Engineer Present: not applicable Discipline: Nursing Learning Topic: Survival Skills- Symptom Management Patient Evaluation: Verbalizes understanding: Yes Supplemental Material Given: surgeon spoke with him Instructed By Shannon Banks RN In Department Urology. documented in this encounter [facility] 09-24-2024 Note HNO ID: [id number] Author: SHANNON BANKS RN Service: ? Author Type: Registered Nurse Type: Progress Notes Filed: 09/24/2024 15:21 Note Text: Patient ID with (2) Identifiers, Verified by: Shannon Banks RN Actual procedure/procedure scheduled: Yes Performing provider/scheduled provider: Yes Patient was roomed in: [facility] Tent Finisher offered:Patient declines Patient arrived in the room at: 12:00 Patient ready for procedure: 12:30 The procedure started at ( Time Only): 12:50 The procedure ended at: 1315 Was the procedure delayed: Yes, doctor in other room ProNox Utilized: No The patient left the procedure room at: 1345 Sahnnon Banks RN PRE IANDD NURSE ASSESSMENT Latex Allergy: No Heart valve replacement: No Joint replacement: No Shannon Banks RN PROCEDURE PREP Patient I.D. with two(2) identifiers verified by: Shannon Banks RN 154/76 P 80 Shannon Banks RN UNIVERSAL PROTOCOL / SAFETY CHECKLIST Procedure to be performed: I and D Sign in Communication: Completed Time Out: Team Confirms the Correct Patient, Correct Procedure, Correct Site and Site Marking, Correct Position (if applicable) Sign Out Discussion: Completed Shannon Banks RN POST IANDD NURSE ASSESSMENT Present along with physician during procedure exam. Shannon Banks RN Condition Post Procedure: satisfactory Level of consciousness: awake, oriented PATIENT EDUCATION The following was evaluated; Motivation to Learn: Eager Family/Significant Other Support: None - Unavailable/disinterested Cognitive Ability: Alert/Oriented Method of Instruction: Individual instruction The Following Influencing Factors Were Barriers To This Education Session: None The Following Physical Limitations Were Barriers To This Education Session: None Instruction Provided To: Patient Slab Lifting Engineer Present: not applicable Discipline: Nursing Learning Topic: Survival Skills- Symptom Management Patient Evaluation: Verbalizes understanding: Yes Supplemental Material Given: surgeon spoke with him Instructed By Shannon Banks RN In Department Urology. [facility] 09-24-2024 Note HNO ID: [id number] Author: LAEX NEWMAN MD Service: ? Author Type: Physician Type: Progress Notes Filed: 10/04/2024 09:23 Note Text: snm placed for urinary retention in February. 80% improvement in voiding and has not really changed programs. For last 3 weeks noted skin over area did not look normal. incision a bit red - one area fluctuant no tenderness/erythema over the rest of the site. will open up fluctuant site rbapc removed. IC done. if grossly infected may have to remove entire thing. Alex Newman MD [facility] 09-24-2024 History of Presen t illness Narrative snm placed for urinary retention in February. 80% improvement in voiding and has not really changed programs. For last 3 weeks noted skin over area did not look normal. incision a bit red - one area fluctuant no tenderness/erythema over the rest of the site. will open up fluctuant site rbapc removed. IC done. if grossly infected may have to remove entire thing. Alex Newman MD documented in this encounter [facility] 09-24-2024 Note Patient Outreach (UR OLMN) SARMAD ALMEIDA ([id number]) 1950 M Date Time Provider Department 09/24/24 ALEX NEWMAN During your visit today, we recorded the following information about you: Allergies As of Date: 09/24/2024 Noted Allergy Reaction AMOXACILLIN (AMOXICILLIN) 04/13/2016 16 - Unknown AUGMENTIN (AMOXICILLIN-POT CLAVUL*04/13/2016 14 - Other: See Comments Comments: Nausea Date Reviewed: 09/24/2024 Reviewed by: Shannon Banks RN - Fully Assessed Visit Diagnosis:Screening for genitourinary condition [Z13.89] Order(s):UA DIP, URINE (POC) [8568831] Order #: [id number] FUTURE Prescriptions as of 09/27/2024 - sulfamethoxazole-trimethoprim (BACTRIM DS) 800-160 mg per tablet Take 1 tablet by mouth two times a day for 14 days. - cyanocobalamin (VITAMIN B-12) 1,000 mcg tab Take 1 tablet by mouth once daily. - levothyroxine (SYNTHROID) 125 mcg tablet Take 1 tablet by mouth once daily. - lisinopril (ZESTRIL) 10 mg tablet Take 10 mg by mouth once daily. - GABAPENTIN, BULK, MISC 300 mg BID - pantoprazole DR (PROTONIX) 40 mg tablet Take 40 mg by mouth two times a day. - trospium (SANCTURA) 20 mg tablet Take 20 mg by mouth daily at bedtime. - multivitamin tablet Take 1 tablet by mouth once daily. - CPAP/BIPAP/OTHER autopap [id number] [facility] [place] Contact At Once! tiffin - allopurinol (ZYLOPRIM) 300 mg tablet Take 300 mg by mouth. - atorvastatin (LIPITOR) 20 mg tablet Take 20 mg by mouth. - metFORMIN (GLUCOPHAGE) 1,000 mg tablet Take 1,000 mg by mouth once daily. - SITagliptin (JANUVIA) 100 mg tablet Take 100 mg by mouth once daily. - buPROPion XL (WELLBUTRIN XL) 150 mg 24 hr tablet Take 150 mg by mouth. - venlafaxine ER (EFFEXOR XR) 75 mg 24 hr capsule Take 75 mg by mouth once daily. Meds Comments as of 01/23/2024: Pt poor historian with meds, initially stated meds were correct, [facility] had list that was somewhat different than [facility] meds, all updated per [facility]'s med list Problem List As Of Date 09/24/2024 Noted Resolved ADD (attention deficit hyperactivity disorder, *12/07/2016 Snoring [R06.83] 12/30/2020 Excessive daytime sleepiness [G47.19] 12/30/2020 Retention of urine [R33.9] 11/11/2023 HTN (hypertension) [I10] 01/23/2024 HLD (hyperlipidemia) [E78.5] 01/23/2024 Acquired hypothyroidism [E03.9] 01/23/2024 Depression [F32.A] 01/23/2024 ELLEN on CPAP [G47.33] 01/23/2024 Anemia [D64.9] 08/02/2021 GERD (gastroesophageal reflux disease) [K21.9] 09/25/2021 Gout [M10.9] 02/21/2024 Type 2 diabetes mellitus without complication (*03/24/2011 Gait difficulty [R26.9] 02/21/2024 Foreign body of buttock with infection [S30.850*09/24/2024 Encounter Status:Closed by [facility], PRODUSER on 09/27/24 [facility] 09-18-2024 Telephone encounter Note Spoke to patient - he is scheduled for Tuesday at 11am. Thanks [facility] 09-18-2024 Miscellaneous Notes Spoke to patient - he is scheduled for Tuesday at 11am. Thanks Telephone follow up Allergies: Amoxicillin, Augmentin Today Saw Dr. Ortiz on reports IPG was flared up Unable to tell when incision started looking like photos provided Has been using neosporin and patch Denies falls Denies drainage, some bleeding on sheets will notice Denies fevers IPG is swollen, tender mild 1-2/10 Will rx course doxycycline for possible infection Photos previously routed to Dr. Newman No other questions/concerns Patient's request for medication is as follows: Requested Prescriptions Signed Prescriptions Disp Refills doxycycline hyclate (VIBRAMYCIN) 100 mg capsule 10 capsule 0 Sig: Take 1 capsule (100 mg) by mouth two times a day for 5 days. Prescription(s) as above. Please process accordingly. Radha Vo APRN.CNP CC: admin for office appointment documented in this encounter [facility] 09-18-2024 Telephone encounter Note Telephone follow up Allergies: Amoxicillin, Augmentin Today Saw Dr. Ortiz on reports IPG was flared up Unable to tell when incision started looking like photos provided Has been using neosporin and patch Denies falls Denies drainage, some bleeding on sheets will notice Denies fevers IPG is swollen, tender mild 1-2/10 Will rx course doxycycline for possible infection Photos previously routed to Dr. Newman No other questions/concerns Patient's request for medication is as follows: Requested Prescriptions Signed Prescriptions Disp Refills doxycycline hyclate (VIBRAMYCIN) 100 mg capsule 10 capsule 0 Sig: Take 1 capsule (100 mg) by mouth two times a day for 5 days. Prescription(s) as above. Please process accordingly. Radha Vo APRN.CNP CC: admin for office appointment [facility] [facility] 09[facility]24 Hospital Discharg e instructions Patient Education 09/13/2024 09:43:41 Clean Intermittent Catheterization, Male Clean Intermittent Catheterization, Male Clean intermittent catheterization (CIC) is a procedure to drain pee (urine) from the bladder by placing a soft tube (catheter) into the bladder though the urethra. The urethra is a tube in the body that carries pee from the bladder out of the body. CIC reduces the risk of infection and other problems that may arise when pee is not completely emptied from the bladder. CIC may be done when: You cannot completely empty your bladder on your own. This may be due to a blockage in the bladder or urethra. Your bladder leaks pee. This may happen when the muscles or nerves near the bladder are not working normally, so the bladder overflows. Your health care provider will show you how to do the procedure. You will also be given the supplies you need to do the procedure. Supplies needed: Germ-free (sterile), water-based lubricant. A container for pee collection. You may also use the toilet to dispose of pee from the catheter. A catheter. Your provider will determine the best size for you. ?Use this catheter size: Clean gloves. Soap and water. Clean washcloth and towel. How to perform this procedure: Most people need CIC at least 4 times per day to completely empty the bladder. Your provider will tell you how often you should do CIC. Number of times per day to perform CIC: To perform CIC, follow these steps: 1.Wash your hands with soap and water for 20 seconds. If soap and water are not available, use hand wastewater treatment plant instructor. 2.Clean your penis with soap and water. Dry the tip of your penis completely. 3.Prepare the supplies that you will use during the procedure. Open the catheter package and lubricant. 4.Get in a comfortable position. Possible positions include: Sitting on a toilet, a chair, or the edge of a bed. Standing near a toilet. Lying down with your head raised on pillows and your knees pointing to the ceiling. You may wish to place a waterproof mat or pad under you. 5.If you are using a pee collection container, position it between your legs. 6.Pee, if you are able. 7.Put on gloves. 8.Apply lubricant to about 2 inches (5 cm) of the tip of the catheter. 9.Set the catheter down on a clean, dry surface within reach. 10.Gently stretch your penis out from your body. Pull back any skin that covers the end of your penis (foreskin). Clean the end of your penis with sterile swabs as told by your provider. 11.Hold your penis upward at a 45 60 degree angle. This helps to straighten the urethra. 12.Slowly insert the lubricated catheter straight into your urethra until pee flows freely. This is usually about 6 8 inches (15 20 cm). 13.When pee starts to flow freely, insert the catheter 1 inch (3 cm) more. Allow pee to drain into the toilet or the pee collection container. 14.When pee stops flowing, slowly remove the catheter. 15.Note the color, amount, and odor of the pee. 16.Measure your pee and note the amount, if told by your provider. 17.Discard the pee in the toilet. 18.Clean your penis using soap and water. 19.Move the foreskin back in place, if applicable. 20.If you are using a single-use catheter, discard the catheter and supplies. 21.Wash your hands with soap and water. 22.If you are using a reusable catheter, follow package instructions about how to clean the catheter after each use. How often should I do this procedure? Do CIC to empty your bladder every 4 6 hours or as often as told by your provider. If you have symptoms of too much pee in your bladder (overdistension) and you are not able to pee, perform CIC. Symptoms of overdistension may include: ?Restlessness. ?Sweating or chills. ?Headache. ?Flushed or pale skin. ?Bloated lower abdomen. What are the risks? The provider will talk with you about the risks. These may include: Infection. Injury to the urethra. Irritation of the urethra. Follow these instructions at home General instructions Drink enough fluid to keep your pee pale yellow. Throw away a catheter when it becomes dry, brittle, or cloudy. This usually happens after you use the catheter for 1 week. Avoid caffeine. Caffeine may make you need to pee more frequently and more urgently. When traveling, bring extra supplies with you in case of delays. Keep supplies with you in a place that you can access easily. If traveling by plane: ?Make sure that the lubricant in your carry-on bag is less than 3.4 ounces (100 mL). ?Use a single-use catheter. It may be difficult to clean a reusable catheter in a small bathroom. Take irgd-zta-jsdqzfv and prescription medicines only as told by your provider. Contact a health care provider if: You have difficulty doing CIC. You have pee leaking around the catheter during CIC. You have: ?Dark or cloudy pee. ?Blood in your pee or in your catheter. ?A change in the smell of your pee or discharge. ?A burning feeling while you pee. You vomit or feel like you may vomit. You have pain in your abdomen, your back, or your sides below your ribs. You have swelling or redness around the opening of your urethra. You develop a rash or sores on your skin. Get help right away if: You have a fever. You have symptoms that do not go away after 3 days. You have symptoms that suddenly get worse. You have severe pain. You start passing a little pee, or a little pee drains from your bladder. This information is not intended to replace advice given to you by your health care provider. Make sure you discuss any questions you have with your health care provider. Document Revised: 03/28/2023 Document Reviewed: 03/28/2023 [employer] Patient Education 2023 [employer]. 09/13/2024 09:43:39 Neurogenic Bladder Neurogenic Bladder Neurogenic bladder is a bladder control disorder. It is usually caused by problems with the nerves that control the bladder. The brain sends signals through the spinal cord to the muscles in the bladder that start and stop urine flow. With neurogenic bladder, the nerves and muscles do not work together the way they should. This condition may make the bladder overactive, meaning you have trouble holding urine. In other cases, it may make the bladder underactive. This means that you have trouble passing urine. What are the causes? This condition may be caused by nerve damage or a condition that disrupts the signals from your brain to your bladder. Many things can cause these nerve problems, including: A disease that affects the nervous system, such as: ?Alzheimer's disease. ?Cerebral palsy. ?Multiple sclerosis. ?Diabetes. ?Parkinson's disease. Damage to your brain or spinal cord. This can come from: ?Trauma. ?Tumors. ?Infection. ?Surgery. ?Alcohol abuse. ?Stroke. ?A congenital disability that affects the spinal cord. What increases the risk? You are more likely to develop this condition if you have nerve damage or a nerve disorder. What are the signs or symptoms? Signs and symptoms of this condition include: Leaking or gushing urine (incontinence). A sudden, strong urge to pass urine (urgency). Frequent urination during the day and night. Being unable to empty your bladder completely (urinary retention). Frequent urinary tract infections. How is this diagnosed? This condition may be diagnosed based on: Your symptoms and medical history. A physical exam. Records from a bladder diary. You may be asked to keep a record or log of your bladder symptoms and the times that you urinate. You may also have tests, such as: A urine test to check for infection. A bladder scan after you urinate to see how much urine is left in your bladder. Tests to measure your urine flow and see how well the flow is controlled (urodynamic tests). A procedure that uses a small device with a camera to look through your urethra into your bladder (cystoscopy). A health care provider who specializes in the urinary tract (urologist) may do this test. Imaging tests of your brain or spine, such as MRI or CT scan. How is this treated? Treatment for this condition depends on the cause and the symptoms that you have. Work closely with your health care provider to find the treatments that will improve your quality of life. Treatment options include: Learning ways to control when you urinate, such as: ?Urinating at scheduled times. ?Training yourself to delay urination. ?Exercises to strengthen the muscles that control urine flow (Kegel exercises). ?Avoiding foods or drinks that make your symptoms worse. Taking medicines to: ?Stimulate an underactive bladder. ?Relax an overactive bladder. ?Treat a urinary tract infection. Learning how to use a thin tube (catheter) to empty your bladder. A catheter is a hollow tube that you pass through your urethra. Procedures to stimulate the nerves that control your bladder. Surgery, if other treatments do not help. Follow these instructions at home: Lifestyle Keep a bladder diary to find out which foods, liquids, or activities make your symptoms worse. Use your bladder diary to schedule bathroom trips. If you are away from home, plan to be near a bathroom when your schedule says you will need one. Limit beverages that stimulate urination. These include soda, coffee, and tea. After urinating, wait a few minutes and try again. Make sure you urinate just before you leave the house and just before you go to bed. Kegel exercises Do Kegel exercises to strengthen the muscles that control the passing of urine. These muscles are the ones you use to try to hold urine when you need to urinate. To do Kegel exercises: 1.Squeeze your pelvic floor muscles tight, as if you are trying to stop the flow of urine. You should feel a tight lift in your rectal area. If you are female, you should also feel a tightness in your vaginal area. Keep your stomach, buttocks, and legs relaxed. 2.Hold the muscles tight for 5 10 seconds. 3.Relax your muscles for the same amount of time. 4.Repeat 10 times. Repeat this exercise 3 times a day or as many times as told by your health care provider. General instructions Take hirk-yvl-cnlwxti and prescription medicines only as told by your health care provider. Keep all follow-up visits. This is important. Contact a health care provider if: You are having a hard time controlling your symptoms. Your symptoms are getting worse. You have signs of a urinary tract infection. These may include: ?A burning feeling when you urinate. ?Fever or chills. ?Cloudy or bloody urine. Get help right away if: You cannot pass urine. Summary Neurogenic bladder is a bladder control disorder caused by problems with the nerves that control the bladder. This condition may make the bladder overactive or underactive. This condition may be caused by nerve damage or a condition that disrupts the signals from your brain to your bladder. Treatment depends on the cause of your neurogenic bladder and the symptoms that you have. Work closely with your health care provider to find the treatments that will improve your quality of life. This information is not intended to replace advice given to you by your health care provider. Make sure you discuss any questions you have with your health care provider. Document Revised: 04/16/2021 Document Reviewed: 04/16/2021 [employer] Patient Education 2023 [employer] Follow Up Care 06/22/2024 10:57:07 With:Angel CALDERON, Dina James, URL, [facility] Address: When: Unknown [facility] 09-13-2024 Note Patient Education Urology Clean Intermittent Catheterization, Male Clean intermittent catheterization (CIC) is a procedure to drain pee (urine) from the bladder by placing a soft tube (catheter) into the bladder though the urethra. The urethra is a tube in the body that carries pee from the bladder out of the body. CIC reduces the risk of infection and other problems that may arise when pee is not completely emptied from the bladder. CIC may be done when: ??? You cannot completely empty your bladder on your own. This may be due to a blockage in the bladder or urethra. ??? Your bladder leaks pee. This may happen when the muscles or nerves near the bladder are not working normally, so the bladder overflows. Your health care provider will show you how to do the procedure. You will also be given the supplies you need to do the procedure. Supplies needed: ??? Germ-free (sterile), water-based lubricant. ??? A container for pee collection. You may also use the toilet to dispose of pee from the catheter. ??? A catheter. Your provider will determine the best size for you. ? Use this catheter size: ??? Clean gloves. ??? Soap and water. ??? Clean washcloth and towel. How to perform this procedure: Most people need CIC at least 4 times per day to completely empty the bladder. Your provider will tell you how often you should do CIC. ??? Number of times per day to perform CIC: To perform CIC, follow these steps: 1. Wash your hands with soap and water for 20 seconds. If soap and water are not available, use hand wastewater treatment plant instructor. 2. Clean your penis with soap and water. Dry the tip of your penis completely. 3. Prepare the supplies that you will use during the procedure. Open the catheter package and lubricant. 4. Get in a comfortable position. Possible positions include: ??? Sitting on a toilet, a chair, or the edge of a bed. ??? Standing near a toilet. ??? Lying down with your head raised on pillows and your knees pointing to the ceiling. You may wish to place a waterproof mat or pad under you. 5. If you are using a pee collection container, position it between your legs. 6. Pee, if you are able. 7. Put on gloves. 8. Apply lubricant to about 2 inches (5 cm) of the tip of the catheter. 9. Set the catheter down on a clean, dry surface within reach. 10. Gently stretch your penis out from your body. Pull back any skin that covers the end of your penis (foreskin). Clean the end of your penis with sterile swabs as told by your provider. 11. Hold your penis upward at a 45?60 degree angle. This helps to straighten the urethra. 12. Slowly insert the lubricated catheter straight into your urethra until pee flows freely. This is usually about 6?8 inches (15?20 cm). 13. When pee starts to flow freely, insert the catheter 1 inch (3 cm) more. Allow pee to drain into the toilet or the pee collection container. 14. When pee stops flowing, slowly remove the catheter. 15. Note the color, amount, and odor of the pee. 16. Measure your pee and note the amount, if told by your provider. 17. Discard the pee in the toilet. 18. Clean your penis using soap and water. 19. Move the foreskin back in place, if applicable. 20. If you are using a single-use catheter, discard the catheter and supplies. 21. Wash your hands with soap and water. 22. If you are using a reusable catheter, follow package instructions about how to clean the catheter after each use. How often should I do this procedure? Do CIC to empty your bladder every 4?6 hours or as often as told by your provider. ??? If you have symptoms of too much pee in your bladder (overdistension) and you are not able to pee, perform CIC. Symptoms of overdistension may include: ? Restlessness. ? Sweating or chills. ? Headache. ? Flushed or pale skin. ? Bloated lower abdomen. What are the risks? The provider will talk with you about the risks. These may include: ??? Infection. ??? Injury to the urethra. ??? Irritation of the urethra. Follow these instructions at home General instructions ??? Drink enough fluid to keep your pee pale yellow. ??? Throw away a catheter when it becomes dry, brittle, or cloudy. This usually happens after you use the catheter for 1 week. ??? Avoid caffeine. Caffeine may make you need to pee more frequently and more urgently. ??? When traveling, bring extra supplies with you in case of delays. Keep supplies with you in a place that you can access easily. If traveling by plane: ? Make sure that the lubricant in your carry-on bag is less than 3.4 ounces (100 mL). ? Use a single-use catheter. It may be difficult to clean a reusable catheter in a small bathroom. ??? Take acro-hzl-nzlcqtm and prescription medicines only as told by your provider. Contact a health care provider if: ??? You have difficulty doing CIC. (more content not included)... [facility] 09-11-2024 History of Presen t illness Narrative Associated Problem(s): Diabetic polyneuropathy associated with type 2 diabetes mellitus ([facility]) Mild symptoms and continue neurontin. Associated Problem(s): Type 2 diabetes mellitus with hyperglycemia, without long-term current use of insulin ([facility]) Not checking BS but recent A1C 6.5. Stick to ADA diet and limit carbs. Associated Problem(s): MDD (major depressive disorder), recurrent episode, moderate (CMS/HCC) Symptoms stable and continue medication. Associated Problem(s): Benign essential hypertension (CMS/HCC) BP elevated today but previously controlled and monitor PRN. Images from the original note were not included. Subjective Patient ID: Madan Almeida is a 73 y.o. male who presents for Follow-up (3m ). Follow up DM, HTN, depression, and neuropathy. Patient doing well today. Not checking BS away from office but last A1C 6.5. Tries to eat well and stick to ADA diet. Denies signs of elevated BS such as polyuria, polyphagia or polydipsia. Checking BP PRN and typically controlled. BP elevated today. Taking medication daily and tolerating without side effects. Depression controlled with medication. Not down or sad and overall feels happier. Neuropathy controlled with neurontin. Not as much pain or burning. Sleeping well. Review of Systems Constitutional: Negative for fatigue. Respiratory: Negative for cough, shortness of breath and wheezing. Cardiovascular: Negative for chest pain and palpitations. Gastrointestinal: Negative for abdominal pain, diarrhea, nausea and vomiting. Genitourinary: Negative for dysuria. Objective Physical Exam Constitutional: General: He is not in acute distress. Appearance: Normal appearance. HENT: Head: Normocephalic. Right Ear: Tympanic membrane and ear canal normal. Left Ear: Tympanic membrane and ear canal normal. Eyes: Extraocular Movements: Extraocular movements intact. Pupils: Pupils are equal, round, and reactive to light. Cardiovascular: Rate and Rhythm: Normal rate and regular rhythm. Heart sounds: No murmur heard. No friction rub. No gallop. Pulmonary: Breath sounds: Normal breath sounds. No wheezing, rhonchi or rales. Abdominal: General: Bowel sounds are normal. There is no distension. Palpations: Abdomen is soft. Tenderness: There is no abdominal tenderness. There is no guarding or rebound. Musculoskeletal: Left lower leg: No edema. Neurological: Mental Status: He is alert. Assessment/Plan Problem List Items Addressed This Visit Adult hypothyroidism (CMS/HCC) Relevant Orders TSH T4, free Type 2 diabetes mellitus with hyperglycemia, without long-term current use of insulin (CMS/HCC) - Primary Not checking BS but recent A1C 6.5. Stick to ADA diet and limit carbs. Relevant Orders Microalbumin / creatinine, urine ratio Benign essential hypertension (CMS/HCC) BP elevated today but previously controlled and monitor PRN. MDD (major depressive disorder), recurrent episode, moderate (CMS/HCC) Symptoms stable and continue medication. Diabetic polyneuropathy associated with type 2 diabetes mellitus (CMS/HCC) Mild symptoms and continue neurontin. documented in this encounter [facility] 08-27-2024 Note HNO ID: [id number] Author: BRODERICK BENITEZ MD Service: ? Author Type: Physician Type: Progress Notes Filed: 08/27/2024 16:21 Note Text: [facility] [address] [place], [place] [address] National Consultation Service 08/27/2024 Report visit after additional tests and consultations. VIRTUAL VISIT PROGRESS NOTE This is a virtual visit using [employer] Zoom Video Visit. It required patient-provider interaction for the medical decision making as documented below. I have communicated my name and active licensure. The patient's identity and physical location were verified at the time of this visit. Either the patient or their legal sales representative publications has been informed of the risks and benefits of -- and alternatives to -- treatment through a remote evaluation and consents to proceed with the evaluation remotely. Sarmad Almeida is a 73 year old male seen for follow-up of his testing. His thyroid was underactive with the TSH being elevated. His dose of levothyroxine has been increased to 0.125 mg. This started 3 weeks ago. His B12 level is low. He will start vitamin B12 replacement. He will be sent to his pharmacy. His brain imaging did not reveal evidence of stroke, bleeding, or mass. He is aware. He has been under some stress. His had recent surgery. He would like to reassess in 12 weeks is progress. We will set up the appointment. HISTORY REVIEWED (electronic chart updated): PAST MEDICAL HISTORY Diagnosis Date Diabetes (HCC) Hypertension Sleep apnea PAST SURGICAL HISTORY Procedure Laterality Date PAST SURGICAL HISTORY OF kidney stone PAST SURGICAL HISTORY OF colon surgery due to peritonitis PAST SURGICAL HISTORY OF back x 4 PAST SURGICAL HISTORY OF left TKA FAMILY HISTORY Problem Relation Age of Onset Kidney Disease Mother Heart disease Father Heart disease Brother Social History Tobacco Use Smoking status: Never Smokeless tobacco: Never Vaping Use Vaping status: Never Used Substance Use Topics Alcohol use: Yes Comment: 2x/week Drug use: Not Currently Current Outpatient Medications Medication Sig cyanocobalamin (VITAMIN B-12) 1,000 mcg tab Take 1 tablet by mouth once daily. lisinopril (ZESTRIL) 10 mg tablet Take 10 mg by mouth once daily. GABAPENTIN, BULK, MISC [address] (PROTONIX) 40 mg tablet Take 40 mg by mouth two times a day. trospium (SANCTURA) 20 mg tablet Take 20 mg by mouth daily at bedtime. multivitamin tablet Take 1 tablet by mouth once daily. CPAP/BIPAP/OTHER autopap [id number] [facility] [employer] allopurinol (ZYLOPRIM) 300 mg tablet Take 300 mg by mouth. atorvastatin (LIPITOR) 20 mg tablet Take 20 mg by mouth. metFORMIN (GLUCOPHAGE) 1,000 mg tablet Take 1,000 mg by mouth once daily. SITagliptin (JANUVIA) 100 mg tablet Take 100 mg by mouth once daily. levothyroxine (SYNTHROID) 88 mcg tablet Take 88 mcg by mouth once daily. buPROPion XL (WELLBUTRIN XL) 150 mg 24 hr tablet Take 150 mg by mouth. venlafaxine ER (EFFEXOR XR) 75 mg 24 hr capsule Take 75 mg by mouth once daily. No current facility-administered medications for this visit. ALLERGIES Allergen Reactions Amoxacillin [Amoxic* Unknown Augmentin [Amoxicil* Other: See Comments Nausea REVIEW OF SYSTEMS: GENERAL: no fever PHYSICAL EXAMINATION: VIDEO EXAM: (if completed, performed via video enabled technology) GENERAL: alert and appropriate, in no distress, well-hydrated, well nourished, and appears tired RESPIRATORY: breathing non-labored ASSESSMENT/PLAN: 1. B12 deficiency - ICD9: 266.2, ICD10: E53.8 (primary diagnosis) - CYANOCOBALAMIN (VIT B-12) 1,000 MCG TABLET 2. Thyroid disease - ICD9: 246.9, ICD10: E07.9 3. Cognitive change - ICD9: 799.59, ICD10: R41.89 We are optimistic that the thyroid replacement and the B12 replacement will improve his function. We will reassess in 12 weeks. I spent a total of 30 minutes on the date of the service which included preparing to see the patient, exri-la-wcnc patient care, completing clinical documentation, obtaining and/or reviewing separately obtained history, performing a medically appropriate examination, counseling and educating the patient/family/caregiver, and care coordination (not separately reported) Broderick Benitez MD [facility] 08-27-2024 History of Presen t illness Narrative [facility] [address] [place], [place] [address] National Consultation Service 08/27/2024 Report visit after additional tests and consultations. VIRTUAL VISIT PROGRESS NOTE This is a virtual visit using [employer] Zoom Video Visit. It required patient-provider interaction for the medical decision making as documented below. I have communicated my name and active licensure. The patient's identity and physical location were verified at the time of this visit. Either the patient or their legal sales representative publications has been informed of the risks and benefits of -- and alternatives to -- treatment through a remote evaluation and consents to proceed with the evaluation remotely. Sarmad Almeida is a 73 year old male seen for follow-up of his testing. His thyroid was underactive with the TSH being elevated. His dose of levothyroxine has been increased to 0.125 mg. This started 3 weeks ago. His B12 level is low. He will start vitamin B12 replacement. He will be sent to his pharmacy. His brain imaging did not reveal evidence of stroke, bleeding, or mass. He is aware. He has been under some stress. His had recent surgery. He would like to reassess in 12 weeks is progress. We will set up the appointment. HISTORY REVIEWED (electronic chart updated): PAST MEDICAL HISTORY Diagnosis Date Diabetes (HCC) Hypertension Sleep apnea PAST SURGICAL HISTORY Procedure Laterality Date PAST SURGICAL HISTORY OF kidney stone PAST SURGICAL HISTORY OF colon surgery due to peritonitis PAST SURGICAL HISTORY OF back x 4 PAST SURGICAL HISTORY OF left TKA FAMILY HISTORY Problem Relation Age of Onset Kidney Disease Mother Heart disease Father Heart disease Brother Social History Tobacco Use Smoking status: Never Smokeless tobacco: Never Vaping Use Vaping status: Never Used Substance Use Topics Alcohol use: Yes Comment: 2x/week Drug use: Not Currently Current Outpatient Medications Medication Sig cyanocobalamin (VITAMIN B-12) 1,000 mcg tab Take 1 tablet by mouth once daily. lisinopril (ZESTRIL) 10 mg tablet Take 10 mg by mouth once daily. GABAPENTIN, BULK, MISC [address] (PROTONIX) 40 mg tablet Take 40 mg by mouth two times a day. trospium (SANCTURA) 20 mg tablet Take 20 mg by mouth daily at bedtime. multivitamin tablet Take 1 tablet by mouth once daily. CPAP/BIPAP/OTHER autopap [id number] [facility] [place] Contact At Once! [employer] allopurinol (ZYLOPRIM) 300 mg tablet Take 300 mg by mouth. atorvastatin (LIPITOR) 20 mg tablet Take 20 mg by mouth. metFORMIN (GLUCOPHAGE) 1,000 mg tablet Take 1,000 mg by mouth once daily. SITagliptin (JANUVIA) 100 mg tablet Take 100 mg by mouth once daily. levothyroxine (SYNTHROID) 88 mcg tablet Take 88 mcg by mouth once daily. buPROPion XL (WELLBUTRIN XL) 150 mg 24 hr tablet Take 150 mg by mouth. venlafaxine ER (EFFEXOR XR) 75 mg 24 hr capsule Take 75 mg by mouth once daily. No current facility-administered medications for this visit. ALLERGIES Allergen Reactions Amoxacillin [Amoxic* Unknown Augmentin [Amoxicil* Other: See Comments Nausea REVIEW OF SYSTEMS: GENERAL: no fever PHYSICAL EXAMINATION: VIDEO EXAM: (if completed, performed via video enabled technology) GENERAL: alert and appropriate, in no distress, well-hydrated, well nourished, and appears tired RESPIRATORY: breathing non-labored ASSESSMENT/PLAN: 1. B12 deficiency - ICD9: 266.2, ICD10: E53.8 (primary diagnosis) - CYANOCOBALAMIN (VIT B-12) 1,000 MCG TABLET 2. Thyroid disease - ICD9: 246.9, ICD10: E07.9 3. Cognitive change - ICD9: 799.59, ICD10: R41.89 We are optimistic that the thyroid replacement and the B12 replacement will improve his function. We will reassess in 12 weeks. I spent a total of 30 minutes on the date of the service which included preparing to see the patient, [id number] patient care, completing clinical documentation, obtaining and/or reviewing separately obtained history, performing a medically appropriate examination, counseling and educating the patient/family/caregiver, and care coordination (not separately reported) Broderick Benitez MD documented in this encounter [facility] 07-20-2024 History of Presen t illness Narrative [facility] FOR FEMALE PELVIC MEDICINE AND RECONSTRUCTIVE SURGERY HISTORY OF PRESENT ILLNESS: Sarmad Almeida is a 73 year old male hx of incomplete emptying, urinary urgency, fecal urgency s/p SNM February 2024 here today for interstim review. 04/24/24 visit per Cindy POLANCO notes, Performing CIC 4-5x. Voiding volitionally more often. But still needing to rely on catheters about as much as pre op. Has been on Program 5 since implant. Also feeling more urgency with bowels. Complex programming done today INTERROGATION: 1) -0, +3 2) -1, +3 3) -2, +0 4) -3, +0 5) -0, -1, +3 - INITIAL PROGRAM at 2.3 6) -1, -2, +3 - MOVED TO at 5.8 felt lower buttcheek 7) -2, -3, +0 06/08/24 visit per Cindy Vo YARROW GATHERER notes, Today pt reports pain at/around IPG site began 3 days ago described as burning sensation Fall 3 weeks ago - forward w/broken nose/hand Slight improvement with therapy turned off but pain still present Denies drainage, denies fevers +minimal redness and slight swelling Battery: OK Impedance: <4k in all leads Reviewed images uploaded to Telly messaged by patient - incision does not appear infected, pt does endorse concern for possible infection Will trial Doxycycline Allergy to Amoxicillin and lisinopril interacts with Bactrim Keep therapy off at this time Pillow for support Tylenol/Ibuprofen as needed Today, reports his implant site became infected, treated with doxycycline. States when he pushes on implant site he notices some pain (minor but there), he just want to make sure he doesn't get an infection again. Turned therapy back on about 1 week ago and says it's been helping with symptoms. Voids spontaneously 3x/d, CIC 3-5x/d but mostly at night based on symptoms of needing to void with residuals 0cc, urgency, fecal urgency has gotten better. Nocturia 3x/n , Drink fluid up to going to bed, several beers 4-5x every other day, milk, root beer Current program: program 6 (-1,-2,+3) mA 5.8, 6.1mA felt left butt cheek Battery: OK Impedance: good HISTORIES: PAST MEDICAL HISTORY PAST MEDICAL HISTORY Diagnosis Date Diabetes (HCC) Hypertension Sleep apnea PAST SURGICAL HISTORY PAST SURGICAL HISTORY Procedure Laterality Date PAST SURGICAL HISTORY OF kidney stone PAST SURGICAL HISTORY OF colon surgery due to peritonitis PAST SURGICAL HISTORY OF back x 4 PAST SURGICAL HISTORY OF left TKA FAMILY HISTORY FAMILY HISTORY Problem Relation Age of Onset Kidney Disease Mother Heart disease Father Heart disease Brother SOCIAL HISTORY Social History Tobacco Use Smoking status: Never Smokeless tobacco: Never Vaping Use Vaping status: Never Used Substance Use Topics Alcohol use: Yes Comment: 2x/week Drug use: Not Currently MEDICATIONS: Current Outpatient Medications Medication Sig lisinopril (ZESTRIL) 10 mg tablet Take 10 mg by mouth once daily. GABAPENTIN, BULK, MISC [address] (PROTONIX) 40 mg tablet Take 40 mg by mouth two times a day. trospium (SANCTURA) 20 mg tablet Take 20 mg by mouth daily at bedtime. multivitamin tablet Take 1 tablet by mouth once daily. CPAP/BIPAP/OTHER autopap [id number] [facility] [employer] allopurinol (ZYLOPRIM) 300 mg tablet Take 300 mg by mouth. atorvastatin (LIPITOR) 20 mg tablet Take 20 mg by mouth. metFORMIN (GLUCOPHAGE) 1,000 mg tablet Take 1,000 mg by mouth once daily. SITagliptin (JANUVIA) 100 mg tablet Take 100 mg by mouth once daily. levothyroxine (SYNTHROID) 88 mcg tablet Take 88 mcg by mouth once daily. buPROPion XL (WELLBUTRIN XL) 150 mg 24 hr tablet Take 150 mg by mouth. venlafaxine ER (EFFEXOR XR) 75 mg 24 hr capsule Take 75 mg by mouth once daily. No current facility-administered medications for this visit. CURRENT ALLERGIES: Allergies As of Date: 07/20/2024 Allergen Noted Reaction AMOXACILLIN [AMOXICILLIN] 04/13/2016 Unknown AUGMENTIN [AMOXICILLIN-POT CLAVUL*04/13/2016 Other: See Comments Fully Assessed 06/08/2024 PHYSICAL EXAM: General: No acute distress, well appearing Back: incision well appearing. No erythema, discharge, or tenderness. Area of possible seroma but no pain or tenderness IMPRESSION: ASSESSMENT/PLAN: 1. Urinary urgency - ICD9: 788.63, ICD10: R39.15 (primary diagnosis) Reviewed his symptoms. He is doing well daytime but has mostly nighttime symptoms. Most likely 2/2 high alcohol and water intake at night. Discussed behavioral modifications. Maintain interstim at this time as it seems to be working. 2. Neurogenic bladder - ICD9: 596.54, ICD10: N31.9 See above 3. Fecal urgency - ICD9: 787.63, ICD10: R15.2 Improved. All questions and concerns were addressed. ELIAN Bocanegra MD Taper/Finisher Urology and Urogynecology [facility] documented in this encounter [facility] 07-20-2024 Note HNO ID: [id number] Author: NASRA CUEVA MD Service: ? Author Type: Physician Type: Progress Notes Filed: 07/20/2024 15:58 Note Text: [facility] FOR FEMALE PELVIC MEDICINE AND RECONSTRUCTIVE SURGERY HISTORY OF PRESENT ILLNESS: Sarmad Almeida is a 73 year old male hx of incomplete emptying, urinary urgency, fecal urgency s/p SNM February 2024 here today for interstim review. 04/24/24 visit per Cindy POLANCO notes, Performing CIC 4-5x. Voiding volitionally more often. But still needing to rely on catheters about as much as pre op. Has been on Program 5 since implant. Also feeling more urgency with bowels. Complex programming done today INTERROGATION: 1) -0, +3 2) -1, +3 3) -2, +0 4) -3, +0 5) -0, -1, +3 - INITIAL PROGRAM at 2.3 6) -1, -2, +3 - MOVED TO at 5.8 felt lower buttcheek 7) -2, -3, +0 06/08/24 visit per Cindy Vo YARROW GATHERER notes, Today pt reports pain at/around IPG site began 3 days ago described as burning sensation Fall 3 weeks ago - forward w/broken nose/hand Slight improvement with therapy turned off but pain still present Denies drainage, denies fevers +minimal redness and slight swelling Battery: OK Impedance: <4k in all leads Reviewed images uploaded to Telly messaged by patient - incision does not appear infected, pt does endorse concern for possible infection Will trial Doxycycline Allergy to Amoxicillin and lisinopril interacts with Bactrim Keep therapy off at this time Pillow for support Tylenol/Ibuprofen as needed Today, reports his implant site became infected, treated with doxycycline. States when he pushes on implant site he notices some pain (minor but there), he just want to make sure he doesn't get an infection again. Turned therapy back on about 1 week ago and says it's been helping with symptoms. Voids spontaneously 3x/d, CIC 3-5x/d but mostly at night based on symptoms of needing to void with residuals 0cc, urgency, fecal urgency has gotten better. Nocturia 3x/n , Drink fluid up to going to bed, several beers 4-5x every other day, milk, root beer Current program: program 6 (-1,-2,+3) mA 5.8, 6.1mA felt left butt cheek Battery: OK Impedance: good HISTORIES: PAST MEDICAL HISTORY PAST MEDICAL HISTORY Diagnosis Date Diabetes (HCC) Hypertension Sleep apnea PAST SURGICAL HISTORY PAST SURGICAL HISTORY Procedure Laterality Date PAST SURGICAL HISTORY OF kidney stone PAST SURGICAL HISTORY OF colon surgery due to peritonitis PAST SURGICAL HISTORY OF back x 4 PAST SURGICAL HISTORY OF left TKA FAMILY HISTORY FAMILY HISTORY Problem Relation Age of Onset Kidney Disease Mother Heart disease Father Heart disease Brother SOCIAL HISTORY Social History Tobacco Use Smoking status: Never Smokeless tobacco: Never Vaping Use Vaping status: Never Used Substance Use Topics Alcohol use: Yes Comment: 2x/week Drug use: Not Currently MEDICATIONS: Current Outpatient Medications Medication Sig lisinopril (ZESTRIL) 10 mg tablet Take 10 mg by mouth once daily. GABAPENTIN, BULK, MISC [address] (PROTONIX) 40 mg tablet Take 40 mg by mouth two times a day. trospium (SANCTURA) 20 mg tablet Take 20 mg by mouth daily at bedtime. multivitamin tablet Take 1 tablet by mouth once daily. CPAP/BIPAP/OTHER autopap [id number] [facility] [place] Contact At Once! [employer] allopurinol (ZYLOPRIM) 300 mg tablet Take 300 mg by mouth. atorvastatin (LIPITOR) 20 mg tablet Take 20 mg by mouth. metFORMIN (GLUCOPHAGE) 1,000 mg tablet Take 1,000 mg by mouth once daily. SITagliptin (JANUVIA) 100 mg tablet Take 100 mg by mouth once daily. levothyroxine (SYNTHROID) 88 mcg tablet Take 88 mcg by mouth once daily. buPROPion XL (WELLBUTRIN XL) 150 mg 24 hr tablet Take 150 mg by mouth. venlafaxine ER (EFFEXOR XR) 75 mg 24 hr capsule Take 75 mg by mouth once daily. No current facility-administered medications for this visit. CURRENT ALLERGIES: Allergies As of Date: 07/20/2024 Allergen Noted Reaction AMOXACILLIN [AMOXICILLIN] 04/13/2016 Unknown AUGMENTIN [AMOXICILLIN-POT CLAVUL*04/13/2016 Other: See Comments Fully Assessed 06/08/2024 PHYSICAL EXAM: General: No acute distress, well appearing Back: incision well appearing. No erythema, discharge, or tenderness. Area of possible seroma but no pain or tenderness IMPRESSION: ASSESSMENT/PLAN: 1. Urinary urgency - ICD9: 788.63, ICD10: R39.15 (primary diagnosis) Reviewed his symptoms. He is doing well daytime but has mostly nighttime symptoms. Most likely 2/2 high alcohol and water intake at night. Discussed behavioral modifications. Maintain interstim at this time as it seems to be working. 2. Neurogenic bladder - ICD9: 596.54, ICD10: N31.9 See above 3. Fecal urgency - ICD9: 787.63, ICD10: R15.2 Improved. All questions and concerns were addressed. Sarita Gold RN Ly Kushla Connelly MD [employer] (more content not included)... [facility] 06-28-2024 Note HNO ID: [id number] Author: BRODERICK BENITEZ MD Service: ? Author Type: Physician Type: Progress Notes Filed: 06/28/2024 09:43 Note Text: National Consultation Service [facility] Mail Code [id number] [id number] 06/28/2024 This is a 73 year old male, [facility] [address] [facility] [address] VIRTUAL VISIT PROGRESS NOTE This is a virtual visit using [employer] Zoom Video Visit. It required patient-provider interaction for the medical decision making as documented below. I have communicated my name and active licensure. The patient's identity and physical location were verified at the time of this visit. Either the patient or their legal sales representative publications has been informed of the risks and benefits of -- and alternatives to -- treatment through a remote evaluation and consents to proceed with the evaluation remotely. Sarmad Almeida is a 73 year old male seen for evaluation of cognitive changes. In particular he has noticed changes in his memory. He needs to be reminded of the items. He has difficulty writing down phone numbers without rechecking the number after it is presented to him. He is grateful for the significant recovery of his motor function. He now walks with a cane. We will start this in evaluation with CT imaging of his head, B12 level, and TSH. Based on the results we will continue the investigation. He denies stroke disease. Profile and A1c will also be checked. HISTORY REVIEWED (electronic chart updated): PAST MEDICAL HISTORY Diagnosis Date Diabetes (HCC) Hypertension Sleep apnea PAST SURGICAL HISTORY Procedure Laterality Date PAST SURGICAL HISTORY OF kidney stone PAST SURGICAL HISTORY OF colon surgery due to peritonitis PAST SURGICAL HISTORY OF back x 4 PAST SURGICAL HISTORY OF left TKA FAMILY HISTORY Problem Relation Age of Onset Kidney Disease Mother Heart disease Father Heart disease Brother Social History Tobacco Use Smoking status: Never Smokeless tobacco: Never Vaping Use Vaping status: Never Used Substance Use Topics Alcohol use: Yes Comment: 2x/week Drug use: Not Currently Current Outpatient Medications Medication Sig lisinopril (ZESTRIL) 10 mg tablet Take 10 mg by mouth once daily. GABAPENTIN, BULK, MISC [address] (PROTONIX) 40 mg tablet Take 40 mg by mouth two times a day. trospium (SANCTURA) 20 mg tablet Take 20 mg by mouth daily at bedtime. multivitamin tablet Take 1 tablet by mouth once daily. CPAP/BIPAP/OTHER autopap [id number] [facility] allopurinol (ZYLOPRIM) 300 mg tablet Take 300 mg by mouth. atorvastatin (LIPITOR) 20 mg tablet Take 20 mg by mouth. metFORMIN (GLUCOPHAGE) 1,000 mg tablet Take 1,000 mg by mouth once daily. SITagliptin (JANUVIA) 100 mg tablet Take 100 mg by mouth once daily. levothyroxine (SYNTHROID) 88 mcg tablet Take 88 mcg by mouth once daily. buPROPion XL (WELLBUTRIN XL) 150 mg 24 hr tablet Take 150 mg by mouth. venlafaxine ER (EFFEXOR XR) 75 mg 24 hr capsule Take 75 mg by mouth once daily. No current facility-administered medications for this visit. ALLERGIES Allergen Reactions Amoxacillin [Amoxic* Unknown Augmentin [Amoxicil* Other: See Comments Nausea REVIEW OF SYSTEMS: GENERAL: no fever PHYSICAL EXAMINATION: VIDEO EXAM: (if completed, performed via video enabled technology) GENERAL: alert and appropriate, in no distress, well-hydrated, well nourished, and happy, smiling, interactive RESPIRATORY: breathing non-labored ASSESSMENT/PLAN: 1. B12 deficiency - ICD9: 266.2, ICD10: E53.8 (primary diagnosis) - VITAMIN B12 2. Thyroid disease - ICD9: 246.9, ICD10: E07.9 - THYROID STIMULATING HORMONE 3. Cognitive change - ICD9: 799.59, ICD10: R41.89 - CT BRAIN WO IVCON He will share the fax numbers for imaging and laboratory at his local hospital. We will then send the orders. I spent a total of 30 minutes on the date of the service which included preparing to see the patient, [id number] patient care, completing clinical documentation, obtaining and/or reviewing separately obtained history, performing a medically appropriate examination, counseling and educating the patient/family/caregiver, ordering medications, tests, or procedures, and care coordination (not separately reported) Broderick Benitez MD [facility] 06-28-2024 History of Presen t illness Narrative National Consultation Service [facility] Mail Code N27 [address] [place] [address] 06/28/2024 This is a 73 year old male, from [address] [place] [address] VIRTUAL VISIT PROGRESS NOTE This is a virtual visit using [employer] Zoom Video Visit. It required patient-provider interaction for the medical decision making as documented below. I have communicated my name and active licensure. The patient's identity and physical location were verified at the time of this visit. Either the patient or their legal sales representative publications has been informed of the risks and benefits of -- and alternatives to -- treatment through a remote evaluation and consents to proceed with the evaluation remotely. Sarmad Almeida is a 73 year old male seen for evaluation of cognitive changes. In particular he has noticed changes in his memory. He needs to be reminded of the items. He has difficulty writing down phone numbers without rechecking the number after it is presented to him. He is grateful for the significant recovery of his motor function. He now walks with a cane. We will start this in evaluation with CT imaging of his head, B12 level, and TSH. Based on the results we will continue the investigation. He denies stroke disease. Profile and A1c will also be checked. HISTORY REVIEWED (electronic chart updated): PAST MEDICAL HISTORY Diagnosis Date Diabetes (HCC) Hypertension Sleep apnea PAST SURGICAL HISTORY Procedure Laterality Date PAST SURGICAL HISTORY OF kidney stone PAST SURGICAL HISTORY OF colon surgery due to peritonitis PAST SURGICAL HISTORY OF back x 4 PAST SURGICAL HISTORY OF left TKA FAMILY HISTORY Problem Relation Age of Onset Kidney Disease Mother Heart disease Father Heart disease Brother Social History Tobacco Use Smoking status: Never Smokeless tobacco: Never Vaping Use Vaping status: Never Used Substance Use Topics Alcohol use: Yes Comment: 2x/week Drug use: Not Currently Current Outpatient Medications Medication Sig lisinopril (ZESTRIL) 10 mg tablet Take 10 mg by mouth once daily. GABAPENTIN, BULK, MISC [address] (PROTONIX) 40 mg tablet Take 40 mg by mouth two times a day. trospium (SANCTURA) 20 mg tablet Take 20 mg by mouth daily at bedtime. multivitamin tablet Take 1 tablet by mouth once daily. CPAP/BIPAP/OTHER autopap [id number] [facility] [employer] allopurinol (ZYLOPRIM) 300 mg tablet Take 300 mg by mouth. atorvastatin (LIPITOR) 20 mg tablet Take 20 mg by mouth. metFORMIN (GLUCOPHAGE) 1,000 mg tablet Take 1,000 mg by mouth once daily. SITagliptin (JANUVIA) 100 mg tablet Take 100 mg by mouth once daily. levothyroxine (SYNTHROID) 88 mcg tablet Take 88 mcg by mouth once daily. buPROPion XL (WELLBUTRIN XL) 150 mg 24 hr tablet Take 150 mg by mouth. venlafaxine ER (EFFEXOR XR) 75 mg 24 hr capsule Take 75 mg by mouth once daily. No current facility-administered medications for this visit. ALLERGIES Allergen Reactions Amoxacillin [Amoxic* Unknown Augmentin [Amoxicil* Other: See Comments Nausea REVIEW OF SYSTEMS: GENERAL: no fever PHYSICAL EXAMINATION: VIDEO EXAM: (if completed, performed via video enabled technology) GENERAL: alert and appropriate, in no distress, well-hydrated, well nourished, and happy, smiling, interactive RESPIRATORY: breathing non-labored ASSESSMENT/PLAN: 1. B12 deficiency - ICD9: 266.2, ICD10: E53.8 (primary diagnosis) - VITAMIN B12 2. Thyroid disease - ICD9: 246.9, ICD10: E07.9 - THYROID STIMULATING HORMONE 3. Cognitive change - ICD9: 799.59, ICD10: R41.89 - CT BRAIN WO IVCON He will share the fax numbers for imaging and laboratory at his local hospital. We will then send the orders. I spent a total of 30 minutes on the date of the service which included preparing to see the patient, [id number] patient care, completing clinical documentation, obtaining and/or reviewing separately obtained history, performing a medically appropriate examination, counseling and educating the patient/family/caregiver, ordering medications, tests, or procedures, and care coordination (not separately reported) Broderick Benitez MD documented in this encounter [facility] 06-22-2024 Hospital Discharg e instructions Patient Education 06/22/2024 11:02:10 Neurogenic Bladder Neurogenic Bladder Neurogenic bladder is a bladder control disorder. It is usually caused by problems with the nerves that control the bladder. The brain sends signals through the spinal cord to the muscles in the bladder that start and stop urine flow. With neurogenic bladder, the nerves and muscles do not work together the way they should. This condition may make the bladder overactive, meaning you have trouble holding urine. In other cases, it may make the bladder underactive. This means that you have trouble passing urine. What are the causes? This condition may be caused by nerve damage or a condition that disrupts the signals from your brain to your bladder. Many things can cause these nerve problems, including: A disease that affects the nervous system, such as: ?Alzheimer's disease. ?Cerebral palsy. ?Multiple sclerosis. ?Diabetes. ?Parkinson's disease. Damage to your brain or spinal cord. This can come from: ?Trauma. ?Tumors. ?Infection. ?Surgery. ?Alcohol abuse. ?Stroke. ?A congenital disability that affects the spinal cord. What increases the risk? You are more likely to develop this condition if you have nerve damage or a nerve disorder. What are the signs or symptoms? Signs and symptoms of this condition include: Leaking or gushing urine (incontinence). A sudden, strong urge to pass urine (urgency). Frequent urination during the day and night. Being unable to empty your bladder completely (urinary retention). Frequent urinary tract infections. How is this diagnosed? This condition may be diagnosed based on: Your symptoms and medical history. A physical exam. Records from a bladder diary. You may be asked to keep a record or log of your bladder symptoms and the times that you urinate. You may also have tests, such as: A urine test to check for infection. A bladder scan after you urinate to see how much urine is left in your bladder. Tests to measure your urine flow and see how well the flow is controlled (urodynamic tests). A procedure that uses a small device with a camera to look through your urethra into your bladder (cystoscopy). A health care provider who specializes in the urinary tract (urologist) may do this test. Imaging tests of your brain or spine, such as MRI or CT scan. How is this treated? Treatment for this condition depends on the cause and the symptoms that you have. Work closely with your health care provider to find the treatments that will improve your quality of life. Treatment options include: Learning ways to control when you urinate, such as: ?Urinating at scheduled times. ?Training yourself to delay urination. ?Exercises to strengthen the muscles that control urine flow (Kegel exercises). ?Avoiding foods or drinks that make your symptoms worse. Taking medicines to: ?Stimulate an underactive bladder. ?Relax an overactive bladder. ?Treat a urinary tract infection. Learning how to use a thin tube (catheter) to empty your bladder. A catheter is a hollow tube that you pass through your urethra. Procedures to stimulate the nerves that control your bladder. Surgery, if other treatments do not help. Follow these instructions at home: Lifestyle Keep a bladder diary to find out which foods, liquids, or activities make your symptoms worse. Use your bladder diary to schedule bathroom trips. If you are away from home, plan to be near a bathroom when your schedule says you will need one. Limit beverages that stimulate urination. These include soda, coffee, and tea. After urinating, wait a few minutes and try again. Make sure you urinate just before you leave the house and just before you go to bed. Kegel exercises Do Kegel exercises to strengthen the muscles that control the passing of urine. These muscles are the ones you use to try to hold urine when you need to urinate. To do Kegel exercises: 1.Squeeze your pelvic floor muscles tight, as if you are trying to stop the flow of urine. You should feel a tight lift in your rectal area. If you are female, you should also feel a tightness in your vaginal area. Keep your stomach, buttocks, and legs relaxed. 2.Hold the muscles tight for 5 10 seconds. 3.Relax your muscles for the same amount of time. 4.Repeat 10 times. Repeat this exercise 3 times a day or as many times as told by your health care provider. General instructions Take hcje-rkx-jpyblem and prescription medicines only as told by your health care provider. Keep all follow-up visits. This is important. Contact a health care provider if: You are having a hard time controlling your symptoms. Your symptoms are getting worse. You have signs of a urinary tract infection. These may include: ?A burning feeling when you urinate. ?Fever or chills. ?Cloudy or bloody urine. Get help right away if: You cannot pass urine. Summary Neurogenic bladder is a bladder control disorder caused by problems with the nerves that control the bladder. This condition may make the bladder overactive or underactive. This condition may be caused by nerve damage or a condition that disrupts the signals from your brain to your bladder. Treatment depends on the cause of your neurogenic bladder and the symptoms that you have. Work closely with your health care provider to find the treatments that will improve your quality of life. This information is not intended to replace advice given to you by your health care provider. Make sure you discuss any questions you have with your health care provider. Document Revised: 04/16/2021 Document Reviewed: 04/16/2021 [employer] Patient Education 2023 [employer]. Follow Up Care 06/07/2024 14:24:40 With:Angel CALDERON, Dina James URL, [facility]RO Address: [address], [facility] [place] [address] [phone] When: Unknown Comments:f/u after seeing F urology in July [facility] 06-22-2024 Note Patient Education Urology Neurogenic Bladder Neurogenic bladder is a bladder control disorder. It is usually caused by problems with the nerves that control the bladder. The brain sends signals through the spinal cord to the muscles in the bladder that start and stop urine flow. With neurogenic bladder, the nerves and muscles do not work together the way they should. This condition may make the bladder overactive, meaning you have trouble holding urine. In other cases, it may make the bladder underactive. This means that you have trouble passing urine. What are the causes? This condition may be caused by nerve damage or a condition that disrupts the signals from your brain to your bladder. Many things can cause these nerve problems, including: ??? A disease that affects the nervous system, such as: ? Alzheimer's disease. ? Cerebral palsy. ? Multiple sclerosis. ? Diabetes. ? Parkinson's disease. ??? Damage to your brain or spinal cord. This can come from: ? Trauma. ? Tumors. ? Infection. ? Surgery. ? Alcohol abuse. ? Stroke. ? A congenital disability that affects the spinal cord. What increases the risk? You are more likely to develop this condition if you have nerve damage or a nerve disorder. What are the signs or symptoms? Signs and symptoms of this condition include: ??? Leaking or gushing urine (incontinence). ??? A sudden, strong urge to pass urine (urgency). ??? Frequent urination during the day and night. ??? Being unable to empty your bladder completely (urinary retention). ??? Frequent urinary tract infections. How is this diagnosed? This condition may be diagnosed based on: ??? Your symptoms and medical history. ??? A physical exam. ??? Records from a bladder diary. You may be asked to keep a record or log of your bladder symptoms and the times that you urinate. You may also have tests, such as: ??? A urine test to check for infection. ??? A bladder scan after you urinate to see how much urine is left in your bladder. ??? Tests to measure your urine flow and see how well the flow is controlled (urodynamic tests). ??? A procedure that uses a small device with a camera to look through your urethra into your bladder (cystoscopy). A health care provider who specializes in the urinary tract (urologist) may do this test. ??? Imaging tests of your brain or spine, such as MRI or CT scan. How is this treated? Treatment for this condition depends on the cause and the symptoms that you have. Work closely with your health care provider to find the treatments that will improve your quality of life. Treatment options include: ??? Learning ways to control when you urinate, such as: ? Urinating at scheduled times. ? Training yourself to delay urination. ? Exercises to strengthen the muscles that control urine flow (Kegel exercises). ? Avoiding foods or drinks that make your symptoms worse. ??? Taking medicines to: ? Stimulate an underactive bladder. ? Relax an overactive bladder. ? Treat a urinary tract infection. ??? Learning how to use a thin tube (catheter) to empty your bladder. A catheter is a hollow tube that you pass through your urethra. ??? Procedures to stimulate the nerves that control your bladder. ??? Surgery, if other treatments do not help. Follow these instructions at home: Lifestyle ??? Keep a bladder diary to find out which foods, liquids, or activities make your symptoms worse. ??? Use your bladder diary to schedule bathroom trips. If you are away from home, plan to be near a bathroom when your schedule says you will need one. ??? Limit beverages that stimulate urination. These include soda, coffee, and tea. ??? After urinating, wait a few minutes and try again. ??? Make sure you urinate just before you leave the house and just before you go to bed. Kegel exercises Do Kegel exercises to strengthen the muscles that control the passing of urine. These muscles are the ones you use to try to hold urine when you need to urinate. To do Kegel exercises: 1. Squeeze your pelvic floor muscles tight, as if you are trying to stop the flow of urine. You should feel a tight lift in your rectal area. If you are female, you should also feel a tightness in your vaginal area. Keep your stomach, buttocks, and legs relaxed. 2. Hold the muscles tight for 5?10 seconds. 3. Relax your muscles for the same amount of time. 4. Repeat 10 times. Repeat this exercise 3 times a day or as many times as told by your health care provider. General instructions ??? Take kuhk-thp-ikpzrzw and prescription medicines only as told by your health care provider. ??? Keep all follow-up visits. This is important. Contact a health care provider if: ??? You are having a hard time controlling your symptoms. ??? Your symptoms are getting worse. ??? You have signs of a urinary tract infection. These may include: ? A bur (more content not included)... [facility] 06-14-2024 History of Presen t illness Narrative ns documented in this encounter [facility] 06-14-2024 Note HNO ID: [id number] Author: RADHA VO APRN.ORIANA Service: ? Author Type: Nurse Practitioner Type: Progress Notes Filed: 06/14/2024 09:19 Note Text: ns [facility] 06-11-2024 Telephone encounter Note Patient is rescheduled. Thanks [facility] 06-11-2024 Miscellaneous Notes Patient is rescheduled. Thanks Telephone follow up Today Started feeling better with antibiotics Did have pain for 2 days Yesterday did not have pain, today no pain Has not turned therapy back on yet Will complete abx as prescribed Update on mychart when therapy back on regarding if pain returns Will update Dr. Newman CC: Scheduling for new appointment as cannot make virtual No other questions/concerns Radha Vo APRN.CNP documented in this encounter [facility] 06-11-2024 Telephone encounter Note Patient is rescheduled. Thanks [facility] 06-11-2024 Miscellaneous Notes Patient is rescheduled. Thanks documented in this encounter [facility] 06-11-2024 Telephone encounter Note Telephone follow up Today Started feeling better with antibiotics Did have pain for 2 days Yesterday did not have pain, today no pain Has not turned therapy back on yet Will complete abx as prescribed Update on mychart when therapy back on regarding if pain returns Will update Dr. Newman CC: Scheduling for new appointment as cannot make virtual No other questions/concerns Radha Vo APRN.CNP [facility] 06-08-2024 History of Presen t illness Narrative Images from the original note were not included. VIRTUAL VISIT PROGRESS NOTE This is a virtual visit using [employer] Zoom Video Visit. It required patient-provider interaction for the medical decision making as documented below. I have communicated my name and active licensure. The patient's identity and physical location were verified at the time of this visit. Either the patient or their legal sales representative publications has been informed of the risks and benefits of -- and alternatives to -- treatment through a remote evaluation and consents to proceed with the evaluation remotely. Verbal consent for virtual encounter: Yes Patient location: [facility] 04/24/24 ASSESSMENT/PLAN: 1. Incomplete emptying of bladder - ICD9: 788.21, ICD10: R33.9 (primary diagnosis) 2. Urinary urgency - ICD9: 788.63, ICD10: R39.15 3. Fecal urgency - ICD9: 787.63, ICD10: R15.2 S/p Staged SNM / InterStim insertion with Dr. Newman February 2024 Complex programming and education today with pt and Pt expressed understanding See me in 3 mo; bring everything charged Exam began at: 1234 Exam ended at: 1250 Sarmad Almeida is a 73 year old male s/p Staged SNM / Interstim insertion with Dr. Newman 03/01/24 Today reports turned off Interstim yesterday felt some relief, but currently still having pain Did fall 3 weeks ago forward broke nose and hand Pain began 3.5 days ago - gradual then became ridiculous Location: IPG site generalized around this area, can press and sometimes really hurts or inch out from scar Described as: burning sensation Aggravated by: none Alleviated: Ibuprofen - slight improvement with turning therapy off Denies drainage around incision site Slight swelling Denies fevers Very little redness PHYSICAL EXAMINATION: VIDEO EXAM: (if completed, performed via video enabled technology) GENERAL: alert and appropriate, in no distress PE uploaded to Telly 06/08/24 by patient ASSESSMENT: 73 year old male s/p Staged SNM / Interstim insertion with Dr. Newman 03/01/24 Today pt reports pain at/around IPG site began 3 days ago described as burning sensation Fall 3 weeks ago - forward w/broken nose/hand Slight improvement with therapy turned off but pain still present Denies drainage, denies fevers +minimal redness and slight swelling ASSESSMENT/PLAN: 1. Pain due to any device, implant or graft, initial encounter - ICD9: 996.70, 338.18, ICD10: T85.848A Reviewed images uploaded to Telly messaged by patient - incision does not appear infected, pt does endorse concern for possible infection Will trial Doxycycline Allergy to Amoxicillin and lisinopril interacts with Bactrim Keep therapy off at this time Pillow for support Tylenol/Ibuprofen as needed Follow up 1 week Further follow up with Dr. Newman if unresolved pain CC: Dr. Rambo Vo APRN.CNP documented in this encounter [facility] 06-08-2024 Note HNO ID: [id number] Author: RADHA VO APRN.CNP Service: ? Author Type: Nurse Practitioner Type: Progress Notes Filed: 06/08/2024 13:14 Note Text: VIRTUAL VISIT PROGRESS NOTE This is a virtual visit using [employer] Video Visit. It required patient-provider interaction for the medical decision making as documented below. I have communicated my name and active licensure. The patient's identity and physical location were verified at the time of this visit. Either the patient or their legal sales representative publications has been informed of the risks and benefits of -- and alternatives to -- treatment through a remote evaluation and consents to proceed with the evaluation remotely. Verbal consent for virtual encounter: Yes [facility] ASSESSMENT/PLAN: 1. Incomplete emptying of bladder - ICD9: 788.21, ICD10: R33.9 (primary diagnosis) 2. Urinary urgency - ICD9: 788.63, ICD10: R39.15 3. Fecal urgency - ICD9: 787.63, ICD10: R15.2 S/p Staged SNM / InterStim insertion with Dr. Newman February 2024 Complex programming and education today with pt and Pt expressed understanding See me in 3 mo; bring everything charged Exam began at: 1234 Exam ended at: 1250 Sarmad Almeida is a 73 year old male s/p Staged SNM / Interstim insertion with Dr. Newman 03/01/24 Today reports turned off Interstim yesterday felt some relief, but currently still having pain Did fall 3 weeks ago forward broke nose and hand Pain began 3.5 days ago - gradual then became ridiculous Location: IPG site generalized around this area, can press and sometimes really hurts or inch out from scar Described as: burning sensation Aggravated by: none Alleviated: Ibuprofen - slight improvement with turning therapy off Denies drainage around incision site Slight swelling Denies fevers Very little redness PHYSICAL EXAMINATION: VIDEO EXAM: (if completed, performed via video enabled technology) GENERAL: alert and appropriate, in no distress PE uploaded to Telly 06/08/24 by patient ASSESSMENT: 73 year old male s/p Staged SNM / Interstim insertion with Dr. Newman 03/01/24 Today pt reports pain at/around IPG site began 3 days ago described as burning sensation Fall 3 weeks ago - forward w/broken nose/hand Slight improvement with therapy turned off but pain still present Denies drainage, denies fevers +minimal redness and slight swelling ASSESSMENT/PLAN: 1. Pain due to any device, implant or graft, initial encounter - ICD9: 996.70, 338.18, ICD10: T85.848A Reviewed images uploaded to Telly messaged by patient - incision does not appear infected, pt does endorse concern for possible infection Will trial Doxycycline Allergy to Amoxicillin and lisinopril interacts with Bactrim Keep therapy off at this time Pillow for support Tylenol/Ibuprofen as needed Follow up 1 week Further follow up with Dr. Newman if unresolved pain CC: Dr. Rambo Vo, ASBESTOS WIRE FINISHER.ADDRESSOGRAPH OPERATOR [facility] 06-07-2024 Telephone encounter Note Spoke to pt regarding message below. Lives 2 hours away. Denies injury to implant site. Denies redness, fever, swelling. Advised to turn device off for now and reassess pain. VV made with Radha Vo tomorrow. Can have someone available to hold phone for visual assessment of implant site. Sarita Gold RN [facility] 06-07-2024 Miscellaneous Notes Spoke to pt regarding message below. Lives 2 hours away. Denies injury to implant site. Denies redness, fever, swelling. Advised to turn device off for now and reassess pain. VV made with Radha Vo tomorrow. Can have someone available to hold phone for visual assessment of implant site. Sarita J Kasberg, RN Patient had interstim done in February and he states that he is having terrible pain around the site. He said it isn't red but the pain is debilitating and he wants to discuss with a nurse. Please call Thanks documented in this encounter [facility] 06-07-2024 Telephone encounter Note Patient had interstim done in February and he states that he is having terrible pain around the site. He said it isn't red but the pain is debilitating and he wants to discuss with a nurse. Please call Thanks [facility] 05-29-2024 History of Presen t illness Narrative Associated Problem(s): MDD (major depressive disorder), recurrent episode, moderate (CMS/HCC) Symptoms stable and continue medication. Associated Problem(s): Benign essential hypertension (CMS/HCC) BP controlled and monitor PRN. Associated Problem(s): Type 2 diabetes mellitus with hyperglycemia, without long-term current use of insulin (CMS/HCC) Reports BS improved and A1C 6.3. Stick to ADA diet and limit carbs. 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 Recommend follow up with GI. Images from the original note were not included. Subjective Patient ID: Sarmad Almeida is a 73 y.o. male who presents for Follow-up (Go over labs and liver scan). Follow up from GI testing. Seen by GI for abnormal US liver. Reported a history of alcohol abuse in past. Previously drank 6 or more drinks daily for years. Cut back few years ago and now no longer drinks. US showed fatty liver. Recent LFTs normal. Patient had liver scan and report sent without interpretation. Overall feels well. Reports BS stable around 120. Tries to eat well and stick to ADA diet. Denies signs of elevated BS such as polyuria, polyphagia or polydipsia. Checking BP PRN and typically controlled. BP elevated today. Taking medication daily and tolerating without side effects. Review of Systems Constitutional: Negative for fatigue. Respiratory: Negative for cough, shortness of breath and wheezing. Cardiovascular: Negative for chest pain and palpitations. Gastrointestinal: Negative for abdominal pain, diarrhea, nausea and vomiting. Genitourinary: Negative for dysuria. Objective Physical Exam Constitutional: General: He is not in acute distress. Appearance: Normal appearance. HENT: Head: Normocephalic. Right Ear: Tympanic membrane and ear canal normal. Left Ear: Tympanic membrane and ear canal normal. Eyes: Extraocular Movements: Extraocular movements intact. Pupils: Pupils are equal, round, and reactive to light. Cardiovascular: Rate and Rhythm: Normal rate and regular rhythm. Heart sounds: No murmur heard. No friction rub. No gallop. Pulmonary: Breath sounds: Normal breath sounds. No wheezing, rhonchi or rales. Abdominal: General: Bowel sounds are normal. There is no distension. Palpations: Abdomen is soft. Tenderness: There is no abdominal tenderness. There is no guarding or rebound. Musculoskeletal: Left lower leg: No edema. Neurological: Mental Status: He is alert. Assessment/Plan Problem List Items Addressed This Visit Type 2 diabetes mellitus with hyperglycemia, without long-term current use of insulin (CMS/HCC) Reports BS improved and A1C 6.3. Stick to ADA diet and limit carbs. Benign essential hypertension (CMS/HCC) BP controlled and monitor PRN. MDD (major depressive disorder), recurrent episode, moderate (CMS/HCC) Symptoms stable and continue medication. 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 Recommend follow up with GI. documented in this encounter [facility] 04-24-2024 Instructions Sally Dennis PA-C - 04/24/2024 9:25 AM EDT You were on Program 5 We changed you to Program 6 (at 5.8) Try this for 2 weeks and monitor how many times you catheterize and your output from cath You have Progams 1, 2, 3, 4, and 7 to still try Goal is to find program that works best for you (bladder and bowels) documented in this encounter [facility] 04-24-2024 Note HNO ID: [id number] Author: SALLY DENNIS PA-C Service: ? Author Type: Physician Sweeper Operator Highways Type: Progress Notes Filed: 04/24/2024 10:01 Note Text: [facility] RECONSTRUCTIVE SURGERY HISTORY OF PRESENT ILLNESS: Sarmad Almeida is a 73 year old male s/p Staged SNM / Interstim insertion with Dr. Newman in February, here today for a follow up regarding post op device check. Performing CIC 4-5x Voiding volitionally more often But still needing to rely on catheters about as much as pre op Has not received any education on working the device and is frustrated by this Has been on Program 5 since implant Also feeling more urgency with bowels INTERROGATION: 1) -0, +3 2) -1, +3 3) -2, +0 4) -3, +0 5) -0, -1, +3 - INITIAL PROGRAM at 2.3 6) -1, -2, +3 - MOVED TO at 5.8 felt lower buttcheek 7) -2, -3, +0 Battery: OK Impedance: <4k in all leads GENERAL REVIEW OF SYSTEMS: GI:SEE HPI GENITOURINARY:SEE HPI HISTORIES: Present Medications: lisinopril (ZESTRIL) 10 mg tablet Take 10 mg by mouth once daily. GABAPENTIN, BULK, MISC [address] (PROTONIX) 40 mg tablet Take 40 mg by mouth two times a day. trospium (SANCTURA) 20 mg tablet Take 20 mg by mouth daily at bedtime. multivitamin tablet Take 1 tablet by mouth once daily. CPAP/BIPAP/OTHER autopap [id number] [facility] [employer] allopurinol (ZYLOPRIM) 300 mg tablet Take 300 mg by mouth. atorvastatin (LIPITOR) 20 mg tablet Take 20 mg by mouth. metFORMIN (GLUCOPHAGE) 1,000 mg tablet Take 1,000 mg by mouth once daily. SITagliptin (JANUVIA) 100 mg tablet Take 100 mg by mouth once daily. levothyroxine (SYNTHROID) 88 mcg tablet Take 88 mcg by mouth once daily. buPROPion XL (WELLBUTRIN XL) 150 mg 24 hr tablet Take 150 mg by mouth. venlafaxine ER (EFFEXOR XR) 75 mg 24 hr capsule Take 75 mg by mouth once daily. No current facility-administered medications for this visit. Past Family History: FAMILY HISTORY Problem Relation Age of Onset Kidney Disease Mother Heart disease Father Heart disease Brother Past Medical History: PAST MEDICAL HISTORY No date: Diabetes (HCC) No date: Hypertension No date: Sleep apnea Past Surgical History: PAST SURGICAL HISTORY No date: PAST SURGICAL HISTORY OF Comment: kidney stone No date: PAST SURGICAL HISTORY OF Comment: colon surgery due to peritonitis No date: PAST SURGICAL HISTORY OF Comment: back x 4 No date: PAST SURGICAL HISTORY OF Comment: left TKA Past Social History: Social History Tobacco Use Smoking status: Never Smokeless tobacco: Never Vaping Use Vaping status: Never Used Substance Use Topics Alcohol use: Yes Comment: 2x/week Drug use: Not Currently PHYSICAL EXAM: GENERAL: Well appearing, alert, in no acute distress RESP: NL effort, no retractions or purse-lip breathing ABDOMEN: soft; nontender; no gaurding NEURO/PSYCH: No signs of depression, anxiety, or agitation, gait normal, AANDOx3 BACK: IPG incision healed on R upper glute; no signs of infection; no tenderness to palpation Superficial IPG but not bothering pt at this time ASSESSMENT/PLAN: 1. Incomplete emptying of bladder - ICD9: 788.21, ICD10: R33.9 (primary diagnosis) 2. Urinary urgency - ICD9: 788.63, ICD10: R39.15 3. Fecal urgency - ICD9: 787.63, ICD10: R15.2 S/p Staged SNM / InterStim insertion with Dr. Newman February 2024 Complex programming and education today with pt and Pt expressed understanding See me in 3 mo; bring everything charged Sally Dennis PA-C [facility] 04-24-2024 History of Presen t illness Narrative Images from the original note were not included. [facility] FOR FEMALE PELVIC MEDICINE AND RECONSTRUCTIVE SURGERY HISTORY OF PRESENT ILLNESS: Sarmad Almeida is a 73 year old male s/p Staged SNM / Interstim insertion with Dr. Newman in February, here today for a follow up regarding post op device check. Performing CIC 4-5x Voiding volitionally more often But still needing to rely on catheters about as much as pre op Has not received any education on working the device and is frustrated by this Has been on Program 5 since implant Also feeling more urgency with bowels INTERROGATION: 1) -0, +3 2) -1, +3 3) -2, +0 4) -3, +0 5) -0, -1, +3 - INITIAL PROGRAM at 2.3 6) -1, -2, +3 - MOVED TO at 5.8 felt lower buttcheek 7) -2, -3, +0 Battery: OK Impedance: <4k in all leads GENERAL REVIEW OF SYSTEMS: GI:SEE HPI GENITOURINARY:SEE HPI HISTORIES: Present Medications: lisinopril (ZESTRIL) 10 mg tablet Take 10 mg by mouth once daily. GABAPENTIN, BULK, MISC [address] (PROTONIX) 40 mg tablet Take 40 mg by mouth two times a day. trospium (SANCTURA) 20 mg tablet Take 20 mg by mouth daily at bedtime. multivitamin tablet Take 1 tablet by mouth once daily. CPAP/BIPAP/OTHER autopap [id number] [facility] [place] Contact At Once! tiffin allopurinol (ZYLOPRIM) 300 mg tablet Take 300 mg by mouth. atorvastatin (LIPITOR) 20 mg tablet Take 20 mg by mouth. metFORMIN (GLUCOPHAGE) 1,000 mg tablet Take 1,000 mg by mouth once daily. SITagliptin (JANUVIA) 100 mg tablet Take 100 mg by mouth once daily. levothyroxine (SYNTHROID) 88 mcg tablet Take 88 mcg by mouth once daily. buPROPion XL (WELLBUTRIN XL) 150 mg 24 hr tablet Take 150 mg by mouth. venlafaxine ER (EFFEXOR XR) 75 mg 24 hr capsule Take 75 mg by mouth once daily. No current facility-administered medications for this visit. Past Family History: FAMILY HISTORY Problem Relation Age of Onset Kidney Disease Mother Heart disease Father Heart disease Brother Past Medical History: PAST MEDICAL HISTORY No date: Diabetes (HCC) No date: Hypertension No date: Sleep apnea Past Surgical History: PAST SURGICAL HISTORY No date: PAST SURGICAL HISTORY OF Comment: kidney stone No date: PAST SURGICAL HISTORY OF Comment: colon surgery due to peritonitis No date: PAST SURGICAL HISTORY OF Comment: back x 4 No date: PAST SURGICAL HISTORY OF Comment: left TKA Past Social History: Social History Tobacco Use Smoking status: Never Smokeless tobacco: Never Vaping Use Vaping status: Never Used Substance Use Topics Alcohol use: Yes Comment: 2x/week Drug use: Not Currently PHYSICAL EXAM: GENERAL: Well appearing, alert, in no acute distress RESP: NL effort, no retractions or purse-lip breathing ABDOMEN: soft; nontender; no gaurding NEURO/PSYCH: No signs of depression, anxiety, or agitation, gait normal, A&Ox3 BACK: IPG incision healed on R upper glute; no signs of infection; no tenderness to palpation Superficial IPG but not bothering pt at this time ASSESSMENT/PLAN: 1. Incomplete emptying of bladder - ICD9: 788.21, ICD10: R33.9 (primary diagnosis) 2. Urinary urgency - ICD9: 788.63, ICD10: R39.15 3. Fecal urgency - ICD9: 787.63, ICD10: R15.2 S/p Staged SNM / InterStim insertion with Dr. Newman February 2024 Complex programming and education today with pt and Pt expressed understanding See me in 3 mo; bring everything charged Sally Dennis PA-C documented in this encounter [facility] 04-20-2024 Telephone encounter Note Patient is scheduled for Tuesday with Sally Dennis. Thanks [facility] 04-20-2024 Miscellaneous Notes Patient is scheduled for Tuesday with Sally Dennis. Thanks documented in this encounter [facility] 04-19-2024 Evaluation note Authored April 19, 2024 9:37am 74-year-old man referred to the liver clinic for evaluation of abnormal liver ultrasound. Previous ultrasound few years ago showed liver cirrhosis. + History of significant alcohol use Will check MELD labs. Will arrange for ultrasound liver. Will arrange for FibroScan. Will check viral hepatitis serologies. Patient was counseled about the importance of alcohol abstinence [facility] Work Phone: [phone]) 704-188408-14-2024 Telephone encounter Note* Telephone Encounter - Orly De Oliveira - 03/28/2024 1:24 PM EDT Patient is scheduled for post op apt on 04/02 with Sally Dennis and patient confirmed apt. thanks [facility]08-14-2024 Miscellaneous Notes* Telephone Encounter - Orly De Oliveira - 03/28/2024 1:24 PM EDT Patient is scheduled for post op apt on 04/02 with Sally Dennis and patient confirmed apt. thanks * Telephone Encounter - Orly De Oliveira - 03/27/2024 4:06 PM EDT Called patient to schedule post op/virtual visit with Sally Dennis and he told me that now is nota good time as he was driving and to call him back tomorrow - will try again then. Thanks * Telephone Encounter - Orly De Oliveira - 03/27/2024 4:06 PM EDT ----- Message from Sally Dennis PA-C sent at 03/27/2024 2:53 PM EDT ----- Happy to see him tomorrow I have an open slot in AM (you can change it to virtual) or Monday 04/02 at 8am I have a slot open ----- Message ----- From: Orly De Oliveira Sent: 03/23/2024 3:33 PM EDT To: Sally Dennis PA-C This patient needs a post op - wanting to do it virtually with you. His surgery was 03/01 - can you help me and let me know where to put him for a video visit please. thank you [facility] Telephone encounter Note * Telephone Encounter - Orly De Oliveira - 03/27/2024 4:06 PM EDT Called patient to schedule post op/virtual visit with Sally Dennis and he told me that now is nota good time as he was driving and to call him back tomorrow - will try again then. Thanks [facility]08-13-2024 Telephone encounter Note* Telephone Encounter - Orly De Oliveira - 03/27/2024 4:06 PM EDT ----- Message from Sally Dennis PA-C sent at 03/27/2024 2:53 PM EDT ----- Happy to see him tomorrow I have an open slot in AM (you can change it to virtual) or Monday 04/02 at 8am I have a slot open ----- Message ----- From: Orly De Oliveira Sent: 03/23/2024 3:33 PM EDT To: Sally Dennis PA-C This patient needs a post op - wanting to do it virtually with you. His surgery was 03/01 - can you help me and let me know where to put him for a video visit please. thank you [facility]07-18-2024 NoteHNO ID: [id number] Author: ALEX NEWMAN MD Service: Urology Author Type: Physician Type: Progress Notes Filed: 03/01/2024 09:54 Note Text: greater than 50% improvement on stage one test fewer caths - voiding much better no change in med hx Alex Newman, [facility]07-09-2024 Instructions* Patient Instructions* Kimmy Carpenter APRN.ADDRESSOGRAPH OPERATOR - 02/21/2024 1:41 PM EDT PATIENT PREOPERATIVE INSTRUCTIONS Alex Newman has scheduled you for your procedure at this surgery center: [facility]: [phone] --[address] [place] [address]. Please read below carefully for your personalized instructions. Dietary Restrictions: - No solid food after midnight. - You may have 12 ounces of clear liquids (water, clear juices such as apple juice or gatorade, carbonated beverages, clear tea, black coffee, jello) until 2 hours before scheduled arrival at facility. Medications: Unless instructed differently below, stay on all of your medications until your surgery. If you start any new medications after today's visit, please contact your surgeon. Pre-Surgery Med Instructions Medication Instructions lisinopril (ZESTRIL) 10 mg tablet Do not take the evening before, or the morning of surgery GABAPENTIN, BULK, MISC Continue Taking pantoprazole DR (PROTONIX) 40 mg tablet Continue Taking trospium (SANCTURA) 20 mg tablet Do not take the day of surgery metFORMIN (GLUCOPHAGE) 1,000 mg tablet Do not take the day of surgery SITagliptin (JANUVIA) 100 mg tablet Do not take the day of surgery levothyroxine (SYNTHROID) 88 mcg tablet Continue Taking venlafaxine ER (EFFEXOR XR) 75 mg 24 hr capsule Continue Taking If you take any medications for erectile dysfunction-Cialis (Tadalafil), Levitra, Staxyn (Vardenafil) Viagra (Sildenenafil please do not take these for 48 hours before surgery. If you start any new medications after today's visit, please contact the surgeon's office. Blood Thinning Medications: - Hold NSAIDS (Ibuprofen, Advil, Aleve, Motrin, Celebrex, Mobic, etc.) 7 days before surgery, as directed by your surgeon. - Hold Aspirin 7 days before surgery, as directed by your surgeon. - Hold all vitamins, fish oil, herbals and dietary supplements 7 days before surgery. - You may take Tylenol (Acetaminophen) or any of your pain medications that do not contain aspirin or NSAIDS as needed. Important Reminders: - If you use CPAP/BIPAP, bring the machine with you to the surgery center. - If you are prescribed inhalers for breathing, continue using them. - Candy, mints, and tobacco products are NOT permitted the morning of surgery. - Hearing aids, dentures and glasses may be worn the morning of surgery. - NO jewelry, body piercings, makeup, hairpins or contacts are to be worn the day of surgery. If you develop symptoms such as a fever, cold, or flu, or have other changes to your health within TWO DAYS of scheduled surgery or the morning of surgery, please contact the surgery center above. Personal Belongings: -Please have photo ID and insurance cards. -If you do not have a copy of advance directives on file with us, please bring a copy with you on the day of surgery. - Leave ALL valuables and money at home or with family members. For Outpatient Procedures: - YOU MUST HAVE A RESPONSIBLE DIESEL ENGINE TESTER TAKE YOU HOME. A REGISTERED ACCOUNT ADMINISTRATOR OR CHILD SUPPORT OFFICER CANNOT BE MADE A RESPONSIBLE DIESEL ENGINE TESTER. - We recommend that a responsible person stays with you overnight to take care of you. - You cannot stay in a hotel alone after outpatient surgery. You will not be permitted to have yoursurgery, if you do not have someone to take care of you. Arrival Time for Surgery: - The Surgery Center or hospital where you are having surgery will call the afternoon before surgery (or Tuesday for Tuesday surgery) with a scheduled arrival time. - If you have not heard by 4 pm, please contact the surgery center above. Please be aware that emergency situations arise, which may delay or change your surgical time. If this happens, we will notify you as soon as possible and regret any inconvenience. If you already have an Advance Directive, please fax a copy to [phone] or email to for it to be added to your chart. If you do not have an Advance Directive, you can find the appropriate form and more information at [email or web address]. We recommend that youcomplete the Advance Directive form found on the website and bring it with you the day of your surgery. It can be witnessed and scanned into your chart that day. [facility] History and physical note * Kimmy Carpenter APRN.CNP - 02/21/2024 1:20 PM EDT PREANESTHESIA CONSULT CLINIC TELEHEALTH VISIT Patient has been identified by name and date of : Yes Reason for contact: PACC visit Accompanied by: Self This is a virtual visit using [employer] Zoom Video Visit. It required patient- provider interaction for the medical decision making as documented below. I have communicated my name and active licensure. The patient's identity and physical location wereverified at the time of this visit. Either the patient or their legal sales representative publications has been informed of the risks and benefits of and alternatives to treatment through a remote evaluation and consents to proceed with the evaluation remotely. REASON FOR VISIT: Sarmad Almeida is a 73 year old male who is scheduled for IMPLANT STIMULATOR LEAD(S) BLADDER INCISIONAL APPROACH INSRT NSTIM GENERATOR BLADDER W/ POCKET CREATE AND CONNECT BTWN ELCTRD ARRAY AND PULSE GENERATOR ORRECVR at the request of Dr. Alex Newman for consultation. My final recommendation will be communicated back to the requesting physician by way of shared medical record or letter. My final recommendation will be communicated back to the requesting physician by way of shared medical record or letter. ASSESSMENT: HTN (hypertension) Assessment: stable and compliant with current medications Last 5 Encounter BP Readings: Date: BP: 02/09/2024 110/68 12/05/2023 136/86 09/21/2023 172/103 12/30/2020 116/73 12/30/2020 120/82 HLD (hyperlipidemia) Assessment: stable with current medication regimen ELLEN on CPAP Assessment: CPAP compliant GERD (gastroesophageal reflux disease) Assessment: Managed and stable with current medication. Denies difficulty swallowing or any bleeding. Type 2 diabetes mellitus without complication (HCC) Assessment: Currently taking metformin, januvia No results found for: HBA1C Acquired hypothyroidism Assessment: stable with current medication regimen Anemia Assessment: Stable. Denies bleeding. CBC today No results found for: HB Gout Assessment: remote history of gout, denies any recent exacerbation Depression Assessment: stable with current medication regimen Retention of urine Assessment: straight caths multiple times daily. InterStim Peripheral Nerve Stimulation Stage 1 occurred on 02/14/24. 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 Fall risk. ANESTHESIA FINDINGS: Intubation History: No history of difficult intubation Significant Anesthesia Considerations: None Airway Exam: General: Normal appearance Body mass index is 27.02 kg/m . Mallampati Score is CLASS III ULBT: Class III - Lower incisors cannot bite the upper lip Neck: Distance from hyoid to mentum during neck extension is at least 3 finger breaths, good ROM inneck but with painful to look up. Mouth: Normal tongue size and Mouth opening greater than 2 finger breaths Dentition: Intact Airway History: No abnormal airway history METS: Walk indoors, such as around the house (1.75 METs) Do light work around the house, such as dusting or washing dishes (2.70 METs) Take care of self; that is eating, dressing, bathing, using the toilet (2.75 METs) Walk a block or two on level ground (2.75 METs) Patient denies any chest pain or undue shortness of breath with the above physical activity. Prepared for surgery: This patient is optimally prepared for surgery. CONSULTS: Patient does not require consults for optimization at this time. The Following Tests/Procedures Have Been Initiated: Orders Placed This Encounter BMP Standing Status: Future Standing Expiration Date: 05/22/2024 Complete Blood Count and Differential Standing Status: Future Standing Expiration Date: 05/22/2024 Hemoglobin A1C Standing Status: Future Standing Expiration Date: 05/22/2024 Planned Anesthetic: Per anesthesia choice Subjective CHIEF COMPLAINT: Urge incontinence [N39.41] HPI: Patient is a 73 year old MALE presenting for pre-op evaluation for the above procedure. Patient denies any chest pain, shortness of breath, palpitations, fever/chills, nausea/vomiting, fatigue, or diarrhea. ACTIVE PROBLEM LIST Add (Attention Deficit Hyperactivity Disorder, Inattentive Type) Snoring Excessive Daytime Sleepiness Retention of Urine Htn (Hypertension) Hld (Hyperlipidemia) Acquired Hypothyroidism Depression Ellen On Cpap Anemia Gerd (Gastroesophageal Reflux Disease) Gout Type 2 Diabetes Mellitus Without Complication (Hcc) PAST MEDICAL HISTORY Diagnosis Date Diabetes (HCC) Hypertension Sleep apnea PAST SURGICAL HISTORY Procedure Laterality Date PAST SURGICAL HISTORY OF kidney stone PAST SURGICAL HISTORY OF colon surgery due to peritonitis PAST SURGICAL HISTORY OF back x 4 PAST SURGICAL HISTORY OF left TKA FAMILY HISTORY Problem Relation Age of Onset Kidney Disease Mother Heart disease Father Heart disease Brother Social History Tobacco Use Smoking status: Never Smokeless tobacco: Never Vaping Use Vaping Use: Never used Substance Use Topics Alcohol use: Yes Comment: 2x/week Drug use: Not Currently ALLERGIES Allergen Reactions Amoxacillin [Amoxic* Unknown Augmentin [Amoxicil* Other: See Comments Nausea MEDICATIONS: Current Outpatient Medications Medication Sig lisinopril (ZESTRIL) 10 mg tablet Take 10 mg by mouth once daily. GABAPENTIN, BULK, MISC [address] (PROTONIX) 40 mg tablet Take 40 mg by mouth two times a day. trospium (SANCTURA) 20 mg tablet Take 20 mg by mouth daily at bedtime. multivitamin tablet Take 1 tablet by mouth once daily. CPAP/BIPAP/OTHER autopap [id number] [facility] [employer] tiffin metFORMIN (GLUCOPHAGE) 1,000 mg tablet Take 1,000 mg by mouth once daily. SITagliptin (JANUVIA) 100 mg tablet Take 100 mg by mouth once daily. levothyroxine (SYNTHROID) 88 mcg tablet Take 88 mcg by mouth once daily. venlafaxine ER (EFFEXOR XR) 75 mg 24 hr capsule Take 75 mg by mouth once daily. allopurinol (ZYLOPRIM) 300 mg tablet Take 300 mg by mouth. atorvastatin (LIPITOR) 20 mg tablet Take 20 mg by mouth. buPROPion XL (WELLBUTRIN XL) 150 mg 24 hr tablet Take 150 mg by mouth. No current facility-administered medications for this visit. Covid Immunization Dates Overdue - Covid-19 Vaccine () Overdue since 04/15/2023 09/21/2021 Imm Admin: COVID-19 original vaccine, full dose, monovalent (MODERNA) 11/21/2020 Imm Admin: COVID-19 original vaccine, age 12+ yr, monovalent ([employer] - PURPLE TOP) 10/09/2020 Imm Admin: COVID-19 original vaccine, full dose, monovalent (MODERNA) REVIEW OF SYSTEMS: Pain Assessment: General: No weight loss, malaise or fevers. Neuro: Postive for walks with assistance, Negative for TIA's Headaches Seizures Respiratory: Positive for ELLEN CPAP compliant , Negative for Current cough, Pneumonia within 6 weeks(date) Cardiovascular: Positive for: HTN, HLD, Negative for CAD, Chest Pain, CHF, DVT/PE GI: No history of GI symptoms or problems. No history of esophageal varices, recent ascites, or ETOH greater than 2 drinks per day. : No history of dysuria, frequency or incontinence,, stones or chronic kidney disease Endocrine: hypothyroidism , diabetes , gout Hematology: anemia Oncology: No history of CA metastasis, chemo within 30 days, or radiotherapy within 90 days. Has not lost 10% of body wt in 6 months. No history of oncological symptoms or problems. Psych: Depression, ADD Musculoskeletal: back and joint pain Skin: Negative for lesions, rash and itching. Objective PHYSICAL EXAM: Resp 16 Ht 5' 9 (1.75m) Wt 183 lb (83.0kg) BMI 27.01 kg/(m^2). VIDEO EXAM: (if completed, performed via video enabled technology) GENERAL: alert and appropriate, in no distress, well-hydrated, well nourished, and happy, smiling, interactive SKIN: no rash noted NECK: full ROM, no cervical LNs noted RESPIRATORY: breathing non-labored CHEST: equal chest rise with normal respiratory effort HEART: pulse palpated by patient and felt to be RRR ABDOMEN: soft and non-tender NEUROLOGIC: no obvious deficit Diagnostic tests reviewed for today's visit: Lab Value Units Date High Low HB No results within date range. HCT No results within date range. WBC No results within date range. PLT No results within date range. NA No results within date range. K No results within date range. GLUC No results within date range. BUN No results within date range. CREAT No results within date range. PTSEC No results within date range. INR No results within date range. APTT No results within date range. ALT No results within date range. AST No results within date range. TBILI No results within date range. TSH No results within date range. Lab Value Units Date High Low HCGQT No results within date range. UHCG No results within date range. HCG, BODY* No results within date range. Lab Value Units Date High Low ABORHD No results within date range. ABSCREEN No results within date range. No results found for: HBA1C Most recent EKG: No results found for this or any previous visit (from the past 8760 hour(s)). Most recent Echo 08/12/21 Normal LV size and function, EF 57%. Normal RV size and function. Mild to modderately thickened AoV and MV with trivial MR and TR, but doubt vegetations. Moderately dilated aortic root, 4.5 cm. Instructions Given to Patient: Patient given verbal instructions and voices comprehension and compliance. Copy sent electronically via My Chart. SIGNATURE: Kimmy Carpenter APRN.CNP PATIENT NAME: Sarmad Almeida DATE: 02/21/2024 TIME: 1:48 PM PAGER/CONTACT #: [facility]07-09-2024 History and physical note* Kimmy Carpenter APRN.CNP - 02/21/2024 1:20 PM EDT PREANESTHESIA CONSULT CLINIC TELEHEALTH VISIT Patient has been identified by name and date of : Yes Reason for contact: PACC visit Accompanied by: Self This is a virtual visit using [employer] Zoom Video Visit. It required patient- provider interaction for the medical decision making as documented below. I have communicated my name and active licensure. The patient's identity and physical location wereverified at the time of this visit. Either the patient or their legal sales representative publications has been informed of the risks and benefits of and alternatives to treatment through a remote evaluation and consents to proceed with the evaluation remotely. REASON FOR VISIT: Sarmad Almeida is a 73 year old male who is scheduled for IMPLANT STIMULATOR LEAD(S) BLADDER INCISIONAL APPROACH INSRT NSTIM GENERATOR BLADDER W/ POCKET CREATE AND CONNECT BTWN ELCTRD ARRAY AND PULSE GENERATOR ORRECVR at the request of Dr. Alex Newman for consultation. My final recommendation will be communicated back to the requesting physician by way of shared medical record or letter. My final recommendation will be communicated back to the requesting physician by way of shared medical record or letter. ASSESSMENT: HTN (hypertension) Assessment: stable and compliant with current medications Last 5 Encounter BP Readings: Date: BP: 02/09/2024 110/68 12/05/2023 136/86 09/21/2023 172/103 12/30/2020 116/73 12/30/2020 120/82 HLD (hyperlipidemia) Assessment: stable with current medication regimen ELLEN on CPAP Assessment: CPAP compliant GERD (gastroesophageal reflux disease) Assessment: Managed and stable with current medication. Denies difficulty swallowing or any bleeding. Type 2 diabetes mellitus without complication (HCC) Assessment: Currently taking metformin, januvia No results found for: HBA1C Acquired hypothyroidism Assessment: stable with current medication regimen Anemia Assessment: Stable. Denies bleeding. CBC today No results found for: HB Gout Assessment: remote history of gout, denies any recent exacerbation Depression Assessment: stable with current medication regimen Retention of urine Assessment: straight caths multiple times daily. InterStim Peripheral Nerve Stimulation Stage 1 occurred on 02/14/24. 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 Fall risk. ANESTHESIA FINDINGS: Intubation History: No history of difficult intubation Significant Anesthesia Considerations: None Airway Exam: General: Normal appearance Body mass index is 27.02 kg/m . Mallampati Score is CLASS III ULBT: Class III - Lower incisors cannot bite the upper lip Neck: Distance from hyoid to mentum during neck extension is at least 3 finger breaths, good ROM inneck but with painful to look up. Mouth: Normal tongue size and Mouth opening greater than 2 finger breaths Dentition: Intact Airway History: No abnormal airway history METS: Walk indoors, such as around the house (1.75 METs) Do light work around the house, such as dusting or washing dishes (2.70 METs) Take care of self; that is eating, dressing, bathing, using the toilet (2.75 METs) Walk a block or two on level ground (2.75 METs) Patient denies any chest pain or undue shortness of breath with the above physical activity. Prepared for surgery: This patient is optimally prepared for surgery. CONSULTS: Patient does not require consults for optimization at this time. The Following Tests/Procedures Have Been Initiated: Orders Placed This Encounter BMP Standing Status: Future Standing Expiration Date: 05/22/2024 Complete Blood Count and Differential Standing Status: Future Standing Expiration Date: 05/22/2024 Hemoglobin A1C Standing Status: Future Standing Expiration Date: 05/22/2024 Planned Anesthetic: Per anesthesia choice Subjective CHIEF COMPLAINT: Urge incontinence [N39.41] HPI: Patient is a 73 year old MALE presenting for pre-op evaluation for the above procedure. Patient denies any chest pain, shortness of breath, palpitations, fever/chills, nausea/vomiting, fatigue, or diarrhea. ACTIVE PROBLEM LIST Add (Attention Deficit Hyperactivity Disorder, Inattentive Type) Snoring Excessive Daytime Sleepiness Retention of Urine Htn (Hypertension) Hld (Hyperlipidemia) Acquired Hypothyroidism Depression Ellen On Cpap Anemia Gerd (Gastroesophageal Reflux Disease) Gout Type 2 Diabetes Mellitus Without Complication (Hcc) PAST MEDICAL HISTORY Diagnosis Date Diabetes (HCC) Hypertension Sleep apnea PAST SURGICAL HISTORY Procedure Laterality Date PAST SURGICAL HISTORY OF kidney stone PAST SURGICAL HISTORY OF colon surgery due to peritonitis PAST SURGICAL HISTORY OF back x 4 PAST SURGICAL HISTORY OF left TKA FAMILY HISTORY Problem Relation Age of Onset Kidney Disease Mother Heart disease Father Heart disease Brother Social History Tobacco Use Smoking status: Never Smokeless tobacco: Never Vaping Use Vaping Use: Never used Substance Use Topics Alcohol use: Yes Comment: 2x/week Drug use: Not Currently ALLERGIES Allergen Reactions Amoxacillin [Amoxic* Unknown Augmentin [Amoxicil* Other: See Comments Nausea MEDICATIONS: Current Outpatient Medications Medication Sig lisinopril (ZESTRIL) 10 mg tablet Take 10 mg by mouth once daily. GABAPENTIN, BULK, MISC [address] (PROTONIX) 40 mg tablet Take 40 mg by mouth two times a day. trospium (SANCTURA) 20 mg tablet Take 20 mg by mouth daily at bedtime. multivitamin tablet Take 1 tablet by mouth once daily. CPAP/BIPAP/OTHER autopap [id number] [facility] [employer] aureliano metFORMIN (GLUCOPHAGE) 1,000 mg tablet Take 1,000 mg by mouth once daily. SITagliptin (JANUVIA) 100 mg tablet Take 100 mg by mouth once daily. levothyroxine (SYNTHROID) 88 mcg tablet Take 88 mcg by mouth once daily. venlafaxine ER (EFFEXOR XR) 75 mg 24 hr capsule Take 75 mg by mouth once daily. allopurinol (ZYLOPRIM) 300 mg tablet Take 300 mg by mouth. atorvastatin (LIPITOR) 20 mg tablet Take 20 mg by mouth. buPROPion XL (WELLBUTRIN XL) 150 mg 24 hr tablet Take 150 mg by mouth. No current facility-administered medications for this visit. Covid Immunization Dates Overdue - Covid-19 Vaccine (2022- season) Overdue since 04/15/2023 09/21/2021 Imm Admin: COVID-19 original vaccine, full dose, monovalent (MODERNA) 11/21/2020 Imm Admin: COVID-19 original vaccine, age 12+ yr, monovalent ([employer] [facility]) 10/09/2020 Imm Admin: COVID-19 original vaccine, full dose, monovalent (MODERNA) REVIEW OF SYSTEMS: Pain Assessment: General: No weight loss, malaise or fevers. Neuro: Postive for walks with assistance, Negative for TIA's Headaches Seizures Respiratory: Positive for ELLEN CPAP compliant , Negative for Current cough, Pneumonia within 6 weeks(date) Cardiovascular: Positive for: HTN, HLD, Negative for CAD, Chest Pain, CHF, DVT/PE GI: No history of GI symptoms or problems. No history of esophageal varices, recent ascites, or ETOH greater than 2 drinks per day. : No history of dysuria, frequency or incontinence,, stones or chronic kidney disease Endocrine: hypothyroidism , diabetes , gout Hematology: anemia Oncology: No history of CA metastasis, chemo within 30 days, or radiotherapy within 90 days. Has not lost 10% of body wt in 6 months. No history of oncological symptoms or problems. Psych: Depression, ADD Musculoskeletal: back and joint pain Skin: Negative for lesions, rash and itching. Objective PHYSICAL EXAM: Resp 16 Ht 5' 9 (1.75m) Wt 183 lb (83.0kg) BMI 27.01 kg/(m^2). VIDEO EXAM: (if completed, performed via video enabled technology) GENERAL: alert and appropriate, in no distress, well-hydrated, well nourished, and happy, smiling, interactive SKIN: no rash noted NECK: full ROM, no cervical LNs noted RESPIRATORY: breathing non-labored CHEST: equal chest rise with normal respiratory effort HEART: pulse palpated by patient and felt to be RRR ABDOMEN: soft and non-tender NEUROLOGIC: no obvious deficit Diagnostic tests reviewed for today's visit: Lab Value Units Date High Low HB No results within date range. HCT No results within date range. WBC No results within date range. PLT No results within date range. NA No results within date range. K No results within date range. GLUC No results within date range. BUN No results within date range. CREAT No results within date range. PTSEC No results within date range. INR No results within date range. APTT No results within date range. ALT No results within date range. AST No results within date range. TBILI No results within date range. TSH No results within date range. Lab Value Units Date High Low HCGQT No results within date range. UHCG No results within date range. HCG, BODY* No results within date range. Lab Value Units Date High Low ABORHD No results within date range. ABSCREEN No results within date range. No results found for: HBA1C Most recent EKG: No results found for this or any previous visit (from the past 8760 hour(s)). Most recent Echo 08/12/21 Normal LV size and function, EF 57%. Normal RV size and function. Mild to modderately thickened AoV and MV with trivial MR and TR, but doubt vegetations. Moderately dilated aortic root, 4.5 cm. Instructions Given to Patient: Patient given verbal instructions and voices comprehension and compliance. Copy sent electronically via My Chart. SIGNATURE: Kimmy Carpenter APRN.CNP PATIENT NAME: Sarmad Almeida DATE: 02/21/2024 TIME: 1:48 PM PAGER/CONTACT #: [facility] Tele[facility] encounter Note * Telephone Encounter - Neel Fregoso MD - 02/17/2024 4:23 PM EDT Images reviewed, I am not concerned with infection at this point. Taking patient's symptoms, pain m/p musculoskeletal. Neel Fregoso MD [facility] Work Phone: 1(473) 378-495907-05-2024 Miscellaneous Notes* Telephone Encounter - Neel Fregoso MD - 02/17/2024 4:23 PM EDT Images reviewed, I am not concerned with infection at this point. Taking patient's symptoms, pain m/p musculoskeletal. Neel Fregoso MD * Telephone Encounter - Eirch Cardoso - 02/17/2024 2:13 PM EDT Patient has been identified by name and date of : Yes Reason for call: Patient calling the office today to report that the pack came loose and he is having some pain in his back. He is asking also if his implant surgery can be moved up earlier than 03/01/24 refrigeration person: Patient Phone number to reach you at: [phone] [facility] Telephone encounter Note * Telephone Encounter - Neel Fregoso MD - 02/17/2024 3:57 PM EDT Phone encounter following patient message. Some pain around the extension wire area. Image will be sent through Telly for review. Neel Fregoso MD [facility] Work Phone: 1(437) 434-714607-05-2024 Miscellaneous Notes* Telephone Encounter - Neel Fregoso MD - 02/17/2024 3:57 PM EDT Phone encounter following patient message. Some pain around the extension wire area. Image will be sent through Telly for review. Neel Fregoso MD [facility] Telephone encounter Note * Telephone Encounter - Drewus GreenAnnemariene Glenis - 02/17/2024 2:13 PM EDT Patient has been identified by name and date of : Yes Reason for call: Patient calling the office today to report that the pack came loose and he is having some pain in his back. He is asking also if his implant surgery can be moved up earlier than 03/01/24 refrigeration person: Patient Phone number to reach you at: [phone] [facility] Work Phone: 1(165) 355-113007-01-2024 Telephone encounter Note* Telephone Encounter - Neel Fregoso MD - 02/13/2024 1:09 PM EDT Phone encounter following stage 1 Bladder has increased it's ability to hold urine, can urinate on his own between cathing. Urge improved. FI has markedly improved! All documented in bladder diaries - will be scanned to chart once evaluation is done. More then 50% improvement. 75% improvement with FI. 55% improvement with bladder symptoms. Willing to proceed to full implant. Neel Fregoso MD [facility]07-01-2024 Miscellaneous Notes* Telephone Encounter - Neel Fregoso MD - 02/13/2024 1:09 PM EDT Phone encounter following stage 1 Bladder has increased it's ability to hold urine, can urinate on his own between cathing. Urge improved. FI has markedly improved! All documented in bladder diaries - will be scanned to chart once evaluation is done. More then 50% improvement. 75% improvement with FI. 55% improvement with bladder symptoms. Willing to proceed to full implant. Neel Fregoso MD documented in this encounterBu[facility]06-27-2024 NoteHNO ID: [id number] Author: ALEX NEWMAN MD Service: Urology Author Type: Physician Type: Progress Notes Filed: 02/09/2024 09:07 Note Text: DU and DO. - long discussion. interested in snm. would do staged. will schedule stage 1 no recent change in medical hx ready for OR Alex Newman MD February 09, 2024 9:07 [facility]06-12-2024 Telephone encounter Note* Telephone Encounter - Gabbie Nunes APRN.CNP - 01/25/2024 10:02 AM EDT Following up on phone call for labs from Dr Khan office. Called office, spoke with Kyung, she states she will fax to my [facility] office. Included resource nurses on message to follow up on labs. Gabbie Nunes APRN.CNP [facility]06-12-2024 Miscellaneous Notes* Telephone Encounter - Gabbie Nunes APRN.CNP - 01/25/2024 10:02 AM EDT Following up on phone call for labs from Dr Khan office. Called office, spoke with Kyung, she states she will fax to my [facility] office. Included resource nurses on message to follow up on labs. Gabbie Nunes APRN.CNP documented in this encounterBu[facility]06-10-2024 History and physical note * Gabbie Nunes APRN.CNP - 01/23/2024 12:54 PM EDT HISTORY AND PHYSICAL EXAMINATION SERVICE DATE: 01/23/2024 SERVICE TIME: 4:17 PM PRIMARY CARE PHYSICIAN: Cathleen Cooney MD, MD Assessment Patient has the following medical conditions which may affect diamante-operative course: HTN (hypertension) Assessment: controlled with meds HLD (hyperlipidemia) Assessment: controlled with meds Awaiting labs to be faxed Acquired hypothyroidism Assessment: controlled with synthroid Await labs to be faxed from dr Khan office Depression Assessment: controlled with meds ELLEN on CPAP Assessment: ELLEN uses CPAP 2 of past 7 nights Retention of urine Assessment: self straight caths 6-7 times per day Patel Activity Status Index: METS: Do yardwork, such as raking leaves, weeding, or pushing a power mower (4.50 METs) DASI Score: 4.5 (Walks unassisted at home, ROM exercise Works in yard, riding mower Had 118 sessions in past, does PT exercises) Patient denies any chest pain or undue shortness of breath with the above physical activity. Clinical Frailty Scale: 2. Well STOP-Bang Score: STOP-Bang Score: (ELLEN uses CPAP some nights) ANESTHESIA FINDINGS: Intubation History: No history of difficult intubation Significant Anesthesia Considerations: none Airway History: No history of difficult airway I - PHYSICAL EVALUATION AIRWAY Patient intubated: No. Tracheostomy tube not present Mallampati: III. TM distance: >3 FB. Neck ROM: full ROM without neurological symptoms. Mouth opening: adequate. Short neck: yes. Thick neck: yes Mckenna present: no Lip Bite Test: III DENTAL Dental findings: teeth intact. II - ANESTHESIA PLAN Anesthetic Plan: other Anesthetic plan additional comments: Anesthesia choice. Beta Hattie Monitoring Plan Post Procedure Analgesic Plan Prepared for Surgery: optimally prepared for surgery, pending [see comment]. [facility] Dr Khan [facility] Left detailed message with MA to fax results. Noted Dr Newman UA order in [facility], pt states he had this done in dr newman office and was negative. CONSULTS: Patient does not require consults for optimization at this time Planned Anesthetic: other anesthesia choice The Following Tests/Procedures Have Been Initiated: Orders Placed This Encounter lisinopril (ZESTRIL) 10 mg tablet Sig: Take 10 mg by mouth once daily. GABAPENTIN, BULK, MISC Si mg BID pantoprazole DR (PROTONIX) 40 mg tablet Sig: Take 40 mg by mouth two times a day. trospium (SANCTURA) 20 mg tablet Sig: Take 20 mg by mouth daily at bedtime. multivitamin tablet Sig: Take 1 tablet by mouth once daily. This is a virtual visit using [employer] video visit (Pt with difficulty connecting, called help desk,logged in 20 minutes late, poor historian with meds, had to end visit to see next pt, reconnect viaamwell, since pt left zoom my chart visit). It required patient-provider interaction for the medical decision making as documented below. REASON FOR VISIT: Sarmad Almeida is a 73 year old male who is scheduled for Procedure(s): IMPLANT STIMULATOR LEAD(S) BLADDER INCISIONAL APPROACH (N/A) at the request of Dr. Alex Newmanfor consultation. My final recommendation will be communicated back to the requesting physician by way of shared medical record or letter. Subjective The patient has the following: ACTIVE PROBLEM LIST Add (Attention Deficit Hyperactivity Disorder, Inattentive Type) Snoring Excessive Daytime Sleepiness Retention of Urine Htn (Hypertension) Hld (Hyperlipidemia) Acquired Hypothyroidism Depression Ellen On Cpap COVID-19 Immunization Status Overdue - Covid-19 Vaccine ( season) Overdue since 04/15/2023 09/21/2021 Imm Admin: COVID-19 original vaccine, full dose, monovalent (MODERNA) 11/21/2020 Imm Admin: COVID-19 original vaccine, age 12+ yr, monovalent ([employer]) 10/09/2020 Imm Admin: COVID-19 original vaccine, full dose, monovalent (MODERNA) Only the first 3 history entries have been loaded, but more history exists. CHIEF COMPLAINT: pre-op HPI: 73 year old male with history of urinary incontinence, now to have above procedure. Pt states had multiple back surgeries. 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 Sitting in wheelchair for virtual PACC. Pt states he can walk unassisted at home. He straight caths 6-7 timesper day He denies abdominal pain, nausea, vomiting, fevers or chills. He states urinates sometimes small amounts, no new symptoms. This is a virtual visit. The visit was conducted using [employer] video visit (Pt with difficulty connecting, called help desk, logged in 20 minutes late, poor historian with meds, had to end visit to see next pt, reconnect via amwell, since pt left zoom my chart visit). It required patient-provider interaction for the medical decision making as documented below. I have communicated my name and active licensure. The patient's identity and physical location wereverified at the time of this visit. Either the patient or their legal sales representative publications has been informed of the risks and benefits of and alternatives to treatment through a remote evaluation and consents to proceed with the evaluation remotely. REVIEW OF SYSTEMS: General: No weight loss, malaise or fevers. Neurological: See HPI. Respiratory: Positive for: obstructive sleep apnea. Cardiovascular: Positive for: hyperlipidemia and hypertension Negative for: CHF, congenital heart defect and DVT/PE. GI: Colon surgery in past Positive for: GERD : See HPI. Positive for: nephrolithiasis. Endocrine: Positive for: hypothyroidism. Negative for: diabetes mellitus. Hematology: No history of bleeding or clotting disorder. Patient is not taking anti-coagulation or platelet medications. No history of hematological symptoms or problems. Oncology: No history of CA metastasis, chemo within 30 days, or radiotherapy within 90 days. No history of oncological symptoms or problems. Psych: Positive for: ADHD, anxiety and depression. Musculoskeletal: Negative for joint pain or swelling, back pain or muscle pain. Skin: Negative for lesions, rash and itching. History reviewed. No pertinent past medical history. PAST SURGICAL HISTORY Procedure Laterality Date PAST SURGICAL HISTORY OF kidney stone PAST SURGICAL HISTORY OF colon surgery due to peritonitis PAST SURGICAL HISTORY OF back x 4 PAST SURGICAL HISTORY OF left TKA FAMILY HISTORY Problem Relation Age of Onset Kidney Disease Mother Heart disease Father Heart disease Brother Social History Tobacco Use Smoking status: Never Smokeless tobacco: Never Substance Use Topics Alcohol use: Yes Drug use: Not Currently Prior to Admission medications as of 01/23/24 1325 Medication Sig Last Dose Taking lisinopril (ZESTRIL) 10 mg tablet Take 10 mg by mouth once daily. Yes GABAPENTIN, BULK, MISC 300 mg BID Yes pantoprazole DR (PROTONIX) 40 mg tablet Take 40 mg by mouth two times a day. Yes trospium (SANCTURA) 20 mg tablet Take 20 mg by mouth daily at bedtime. Yes multivitamin tablet Take 1 tablet by mouth once daily. Yes CPAP/BIPAP/OTHER autopap [id number] [facility] [employer] aureliano Yes allopurinol (ZYLOPRIM) 300 mg tablet Take 300 mg by mouth. Yes atorvastatin (LIPITOR) 20 mg tablet Take 20 mg by mouth. Yes metFORMIN (GLUCOPHAGE) 1,000 mg tablet Take 1,000 mg by mouth once daily. Yes SITagliptin (JANUVIA) 100 mg tablet Take 100 mg by mouth once daily. Yes levothyroxine (SYNTHROID) 88 mcg tablet Take 88 mcg by mouth once daily. Yes buPROPion XL (WELLBUTRIN XL) 150 mg 24 hr tablet Take 150 mg by mouth. Yes venlafaxine ER (EFFEXOR XR) 75 mg 24 hr capsule Take 75 mg by mouth once daily. Yes Tadalafil 5 mg tablet Take 5 mg by mouth as needed. Medication Comments documented by Gabbie Nunes APRN.ADDRESSOGRAPH OPERATOR on 01/23/2024 at 1557. Pt poor historian with meds, initially stated meds were correct, Coleen had list that was somewhat different than [facility] meds, all updated per Coleen's med list ALLERGIES Allergen Reactions Amoxacillin [Amoxic* Unknown Augmentin [Amoxicil* Other: See Comments Nausea Objective PHYSICAL EXAM: (if completed, exam performed via video enabled technology) General: alert and oriented and healthy appearance. Pertinent negatives noted - not distressed. Skin: normal color, no rash or lesions. HEENT: Neck; Full ROM, no cervical lymph nodes noted, no gross abnormality. Mucous membranes moist.. Cardiovascular: Pt unable to palpate radial or carotid pulses Pt denies palpitations . Respiratory: Equal chest rise bilateral, no audible wheezing, in NAD. Abdomen: Palpated and no reported tenderness per pt. Extremities: no deformity, no edema or tenderness, no joint swelling or clubbing. Neurological: Pt ramsey historian with meds, states is sitting in wheelchair for exam. PAIN ASSESSMENT: VITALS: Pulse [pt unable to palpate radial pulse[ Ht 5' 8 (1.73m) Wt 183 lb (83.0kg) BMI 27.83 kg/(m^2). Diagnostic tests reviewed for today's visit: Lab Value Units Date High Low HB No results within date range. HCT No results within date range. WBC No results within date range. PLT No results within date range. NA No results within date range. K No results within date range. GLUC No results within date range. BUN No results within date range. CREAT No results within date range. PTSEC No results within date range. INR No results within date range. APTT No results within date range. ALT No results within date range. AST No results within date range. TBILI No results within date range. TSH No results within date range. Lab Value Units Date High Low HCGQT No results within date range. UHCG No results within date range. HCG, BODY* No results within date range. Lab Value Units Date High Low ABORHD No results within date range. ABSCREEN No results within date range. No results found for: HBA1C No results found for this or any previous visit (from the past 8760 hour(s)). No results found for this or any previous visit (from the past 73198 hour(s)). Instructions Given to Patient: Instructions located in the after visit summary. Patient given verbal and written preop instructions and voices comprehension and compliance. SIGNATURE: Gabbie Nunes APRN.CNP PATIENT NAME: Sarmad Almeida DATE: January 23, 2024 TIME: 12:54 PM PAGER/CONTACT #: [facility] History and physical note* Gabbie Nunes APRN.CNP - 01/23/2024 12:54 PM EDT HISTORY AND PHYSICAL EXAMINATION SERVICE DATE: 01/23/2024 SERVICE TIME: 4:17 PM PRIMARY CARE PHYSICIAN: Cathleen Cooney MD, MD Assessment Patient has the following medical conditions which may affect diamante-operative course: HTN (hypertension) Assessment: controlled with meds HLD (hyperlipidemia) Assessment: controlled with meds Awaiting labs to be faxed Acquired hypothyroidism Assessment: controlled with synthroid Await labs to be faxed from dr Khan office Depression Assessment: controlled with meds ELLEN on CPAP Assessment: ELLEN uses CPAP 2 of past 7 nights Retention of urine Assessment: self straight caths 6-7 times per day Patel Activity Status Index: METS: Do yardwork, such as raking leaves, weeding, or pushing a power mower (4.50 METs) DASI Score: 4.5 (Walks unassisted at home, ROM exercise Works in yard, riding mower Had 118 sessions in past, does PT exercises) Patient denies any chest pain or undue shortness of breath with the above physical activity. Clinical Frailty Scale: 2. Well STOP-Bang Score: STOP-Bang Score: (ELLEN uses CPAP some nights) ANESTHESIA FINDINGS: Intubation History: No history of difficult intubation Significant Anesthesia Considerations: none Airway History: No history of difficult airway I - PHYSICAL EVALUATION AIRWAY Patient intubated: No. Tracheostomy tube not present Mallampati: III. TM distance: >3 FB. Neck ROM: full ROM without neurological symptoms. Mouth opening: adequate. Short neck: yes. Thick neck: yes Mckenna present: no Lip Bite Test: III DENTAL Dental findings: teeth intact. II - ANESTHESIA PLAN Anesthetic Plan: other Anesthetic plan additional comments: Anesthesia choice. Beta Hattie Monitoring Plan Post Procedure Analgesic Plan Prepared for Surgery: optimally prepared for surgery, pending [see comment]. Called Dr Khan office re recent labs to be faxed to [facility]. Left detailed message with MA to fax results. Noted Dr Newman UA order in [facility], pt states he had this done in dr newman office and was negative. CONSULTS: Patient does not require consults for optimization at this time Planned Anesthetic: other anesthesia choice The Following Tests/Procedures Have Been Initiated: Orders Placed This Encounter lisinopril (ZESTRIL) 10 mg tablet Sig: Take 10 mg by mouth once daily. GABAPENTIN, BULK, MISC Si mg BID pantoprazole DR (PROTONIX) 40 mg tablet Sig: Take 40 mg by mouth two times a day. trospium (SANCTURA) 20 mg tablet Sig: Take 20 mg by mouth daily at bedtime. multivitamin tablet Sig: Take 1 tablet by mouth once daily. This is a virtual visit using [employer] video visit (Pt with difficulty connecting, called help desk,logged in 20 minutes late, poor historian with [employer], had to end visit to see next pt, reconnect natalywell, since pt left zoom my chart visit). It required patient-provider interaction for the medical decision making as documented below. REASON FOR VISIT: Sarmad Almeida is a 73 year old male who is scheduled for Procedure(s): IMPLANT STIMULATOR LEAD(S) BLADDER INCISIONAL APPROACH (N/A) at the request of Dr. Alex Newmanfor consultation. My final recommendation will be communicated back to the requesting physician by way of shared medical record or letter. Subjective The patient has the following: ACTIVE PROBLEM LIST Add (Attention Deficit Hyperactivity Disorder, Inattentive Type) Snoring Excessive Daytime Sleepiness Retention of Urine Htn (Hypertension) Hld (Hyperlipidemia) Acquired Hypothyroidism Depression Ellen On Cpap COVID-19 Immunization Status Overdue - Covid-19 Vaccine () Overdue since 04/15/2023 09/21/2021 Imm Admin: COVID-19 original vaccine, full dose, monovalent (MODERNA) 11/21/2020 Imm Admin: COVID-19 original vaccine, age 12+ yr, monovalent (Welzoo - PURPLE TOP) 10/09/2020 Imm Admin: COVID-19 original vaccine, full dose, monovalent (MODERNA) Only the first 3 history entries have been loaded, but more history exists. CHIEF COMPLAINT: pre-op HPI: 73 year old male with history of urinary incontinence, now to have above procedure. Pt states had multiple back surgeries. 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 Sitting in wheelchair for virtual PACC. Pt states he can walk unassisted at home. He straight caths 6-7 timesper day He denies abdominal pain, nausea, vomiting, fevers or chills. He states urinates sometimes small amounts, no new symptoms. This is a virtual visit. The visit was conducted using [employer] video visit (Pt with difficulty connecting, called help desk, logged in 20 minutes late, poor historian with Hexagram 49, had to end visit to see next pt, reconnect via Academize, since pt left zoom my chart visit). It required patient-provider interaction for the medical decision making as documented below. I have communicated my name and active licensure. The patient's identity and physical location wereverified at the time of this visit. Either the patient or their legal sales representative publications has been informed of the risks and benefits of and alternatives to treatment through a remote evaluation and consents to proceed with the evaluation remotely. REVIEW OF SYSTEMS: General: No weight loss, malaise or fevers. Neurological: See HPI. Respiratory: Positive for: obstructive sleep apnea. Cardiovascular: Positive for: hyperlipidemia and hypertension Negative for: CHF, congenital heart defect and DVT/PE. GI: Colon surgery in past Positive for: GERD : See HPI. Positive for: nephrolithiasis. Endocrine: Positive for: hypothyroidism. Negative for: diabetes mellitus. Hematology: No history of bleeding or clotting disorder. Patient is not taking anti-coagulation or platelet medications. No history of hematological symptoms or problems. Oncology: No history of CA metastasis, chemo within 30 days, or radiotherapy within 90 days. No history of oncological symptoms or problems. Psych: Positive for: ADHD, anxiety and depression. Musculoskeletal: Negative for joint pain or swelling, back pain or muscle pain. Skin: Negative for lesions, rash and itching. History reviewed. No pertinent past medical history. PAST SURGICAL HISTORY Procedure Laterality Date PAST SURGICAL HISTORY OF kidney stone PAST SURGICAL HISTORY OF colon surgery due to peritonitis PAST SURGICAL HISTORY OF back x 4 PAST SURGICAL HISTORY OF left TKA FAMILY HISTORY Problem Relation Age of Onset Kidney Disease Mother Heart disease Father Heart disease Brother Social History Tobacco Use Smoking status: Never Smokeless tobacco: Never Substance Use Topics Alcohol use: Yes Drug use: Not Currently Prior to Admission medications as of 01/23/24 1325 Medication Sig Last Dose Taking lisinopril (ZESTRIL) 10 mg tablet Take 10 mg by mouth once daily. Yes GABAPENTIN, BULK, MISC 300 mg BID Yes pantoprazole DR (PROTONIX) 40 mg tablet Take 40 mg by mouth two times a day. Yes trospium (SANCTURA) 20 mg tablet Take 20 mg by mouth daily at bedtime. Yes multivitamin tablet Take 1 tablet by mouth once daily. Yes CPAP/BIPAP/OTHER autopap [id number] [facility] Yes allopurinol (ZYLOPRIM) 300 mg tablet Take 300 mg by mouth. Yes atorvastatin (LIPITOR) 20 mg tablet Take 20 mg by mouth. Yes metFORMIN (GLUCOPHAGE) 1,000 mg tablet Take 1,000 mg by mouth once daily. Yes SITagliptin (JANUVIA) 100 mg tablet Take 100 mg by mouth once daily. Yes levothyroxine (SYNTHROID) 88 mcg tablet Take 88 mcg by mouth once daily. Yes buPROPion XL (WELLBUTRIN XL) 150 mg 24 hr tablet Take 150 mg by mouth. Yes venlafaxine ER (EFFEXOR XR) 75 mg 24 hr capsule Take 75 mg by mouth once daily. Yes Tadalafil 5 mg tablet Take 5 mg by mouth as needed. Medication Comments documented by Gabbie Nunes APRN.ADDRESSOGRAPH OPERATOR on 01/23/2024 at 1557. Pt poor historian with meds, initially stated meds were correct, Coleen had list that was somewhat different than [facility] meds, all updated per Coleen's med list ALLERGIES Allergen Reactions Amoxacillin [Amoxic* Unknown Augmentin [Amoxicil* Other: See Comments Nausea Objective PHYSICAL EXAM: (if completed, exam performed via video enabled technology) General: alert and oriented and healthy appearance. Pertinent negatives noted - not distressed. Skin: normal color, no rash or lesions. HEENT: Neck; Full ROM, no cervical lymph nodes noted, no gross abnormality. Mucous membranes moist.. Cardiovascular: Pt unable to palpate radial or carotid pulses Pt denies palpitations . Respiratory: Equal chest rise bilateral, no audible wheezing, in NAD. Abdomen: Palpated and no reported tenderness per pt. Extremities: no deformity, no edema or tenderness, no joint swelling or clubbing. Neurological: Pt poor historian with meds, states is sitting in wheelchair for exam. PAIN ASSESSMENT: VITALS: Pulse [pt unable to palpate radial pulse[ Ht 5' 8 (1.73m) Wt 183 lb (83.0kg) BMI 27.83 kg/(m^2). Diagnostic tests reviewed for today's visit: Lab Value Units Date High Low HB No results within date range. HCT No results within date range. WBC No results within date range. PLT No results within date range. NA No results within date range. K No results within date range. GLUC No results within date range. BUN No results within date range. CREAT No results within date range. PTSEC No results within date range. INR No results within date range. APTT No results within date range. ALT No results within date range. AST No results within date range. TBILI No results within date range. TSH No results within date range. Lab Value Units Date High Low HCGQT No results within date range. UHCG No results within date range. HCG, BODY* No results within date range. Lab Value Units Date High Low ABORHD No results within date range. ABSCREEN No results within date range. No results found for: HBA1C No results found for this or any previous visit (from the past 8760 hour(s)). No results found for this or any previous visit (from the past 05581 hour(s)). Instructions Given to Patient: Instructions located in the after visit summary. Patient given verbal and written preop instructions and voices comprehension and compliance. SIGNATURE: Gabbie Nunes APRN.CNP PATIENT NAME: Sarmad Almeida DATE: January 23, 2024 TIME: 12:54 PM PAGER/CONTACT #: documented in this encounterBu[facility]06-[facility] Instructions* Patient Instructions* Gabbie Nunes APRN.CNP - 01/23/2024 12:53 PM EDT PATIENT PREOPERATIVE INSTRUCTIONS Alex Newman MD has scheduled you for your procedure at this surgery center: [facility]: [phone] --[address] [place] [address]. Please read below carefully for your personalized instructions. Arrival Time for Surgery: - The Surgery Center or hospital where you are having surgery will call the afternoon before surgery (or Tuesday for Tuesday surgery) with a scheduled arrival time. - If you have not heard by 4 pm, please contact the surgery center above. Please be aware that emergency situations arise, which may delay or change your surgical time. If this happens, we will notify you as soon as possible and regret any inconvenience. Dietary Restrictions: - No solid food after midnight. - You may have 12 ounces of clear liquids (water, clear juices such as apple juice or gatorade, carbonated beverages, clear tea, black coffee, jello) until 2 hours before scheduled arrival at facility. Medications: Unless instructed differently below, stay on all of your medications until your surgery. If you start any new medications after today's visit, please contact your surgeon. Medication to take morning of surgery: Wellbutrin, Atorvastatin, Gabapentin, Synthroid and Pantoprazole SEJAL/ARBs are to be held for 24 hours pre op Do not take lisinopril morning of or evening prior surgery. Preoperative Instructions for Patient's with Diabetes Mellitus Oral/ Injectable Medication Instructions - Metformin - HOLD DAY OF SURGERY Amaryl/Glimepiride - HOLD DAY OF SURGERY Januvia/Sitagliptin- - HOLD DAY OF SURGERY If you take any medications for erectile dysfunction-Cialis (Tadalafil), Levitra, Staxyn (Vardenafil) Viagra (Sildenenafil please do not take these for 48 hours before surgery. If you start any new medications after today's visit, please contact the surgeon's office. Blood Thinning Medications: - Stop NSAIDS (Ibuprofen, Advil, Aleve, Motrin, Celebrex, Mobic, etc.) 7 days before surgery, as directed by your surgeon. - Stop Aspirin 7 days before surgery, as directed by your surgeon. - Do NOT stop aspirin or other anticoagulants without consulting with your access specialist or prescribing physician. - Stop Vitamin E, ALL multi-vitamins, herbals and dietary supplements 14 days before surgery. - You may take Tylenol (Acetaminophen) or any of your pain medications that do not contain aspirin or NSAIDS as needed. Important Reminders: - If you use CPAP/BIPAP, bring the machine with you to the surgery center. - If you are prescribed inhalers for breathing, continue using them. - Candy, mints, and tobacco products are NOT permitted the morning of surgery. - Hearing aids, dentures and glasses may be worn the morning of surgery. - NO jewelry, body piercings, makeup, hairpins or contacts are to be worn the day of surgery. If you develop symptoms such as a fever, cold, or flu, or have other changes to your health within TWO DAYS of scheduled surgery or the morning of surgery, please contact the surgery center above. Personal Belongings: -Please have photo ID and insurance cards. -If you do not have a copy of advance directives on file with us, please bring a copy with you on the day of surgery. - Leave ALL valuables and money at home or with family members. For Outpatient Procedures: - YOU MUST HAVE A RESPONSIBLE DIESEL ENGINE TESTER TAKE YOU HOME. A REGISTERED ACCOUNT ADMINISTRATOR OR CHILD SUPPORT OFFICER CANNOT BE MADE A RESPONSIBLE DIESEL ENGINE TESTER. - We recommend that a responsible person stays with you overnight to take care of you. - You cannot stay in a hotel alone after outpatient surgery. You will not be permitted to have yoursurgery, if you do not have someone to take care of you. If you already have an Advance Directive, please fax a copy to [phone] or email to for it to be added to your chart. If you do not have an Advance Directive, you can find the appropriate form and more information at [email or web address]. We recommend that youcomplete the Advance Directive form found on the website and bring it with you the day of your surgery. It can be witnessed and scanned into your chart that day. Gabbie Nunes APRN.ADDRESSOGRAPH OPERATOR documented in this encounterBucyrus [facility]04-19-2024 Telephone encounter Note * Telephone Encounter - Orly De Oliveira - 12/02/2023 10:36 AM EDT Message left for patient to call back regarding date for surgery. Thanks Offering February 08 at [facility]. Stage 1 SNM [facility]04-19-[facility] Miscellaneous Notes* Telephone Encounter - Orly De Oliveira - 12/02/2023 10:36 AM EDT Message left for patient to call back regarding date for surgery. Thanks Offering February 08 at [facility]. Stage 1 SNM documented in this encounterBucyrus Community Hospital04-16-2024 NoteHNO ID: [id number] Author: ALEX NEWMAN MD Service: ? Author Type: Physician Type: Progress Notes Filed: 11/29/2023 16:01 Note Text: ngb retention interested in interstim trial no uroflow - could not void. cathed for 100 cc. DO at 90 cc and throughout. permission to void during DO and just a few ccs out. EMG no sign of dsd cap 122 DO and inability to void [facility] History of Present illness Narrative* Alex Newman MD - 11/29/2023 3:15 PM EDT ngb retention interested in interstim trial no uroflow - could not void. cathed for 100 cc. DO at 90 cc and throughout. permission to void during DO and just a few ccs out. EMG no sign of dsd cap 122 DO and inability to void Alex Newman MD documented in this encounterBucyrus [facility] Hospital04-16-2024 History of Present illness Narrative* Alex Newman MD - 11/29/2023 2:00 PM EDT Status post spinal issue. no voiding since. prior to that voided fine no recent cysto. does get urgency cic about 6x/d UDS today - DO but unable to really void. given permission to void during DO and had minimal flow PE - prostate 1+ and smooth DU and DO. - long discussion. interested in snm. would do staged. will schedule stage 1 Alex Newman MD documented in this encounterBucyrus [facility] Hospital04-16-2024 NoteHNO ID: [id number] Author: ALEX NEWMAN MD Service: ? Author Type: Physician Type: Progress Notes Filed: 11/30/2023 14:47 Note Text: Status post spinal issue. no voiding since. prior to that voided fine no recent cysto. does get urgency cic about 6x/d UDS today - DO but unable to really void. given permission to void during DO and had minimal flow PE - prostate 1+ and smooth DU and DO. - long discussion. interested in snm. would do staged. will schedule stage 1 Alex Newman [facility]04-16-2024 Nurse Note* Lilliana Jacobson RN - 11/29/2023 12:59 PM EDT [facility] URODYNAMICS LAB URODYNAMIC PROCEDURE NOTE ID Verified by: Lilliana Jacobson RN with name and birthdate. Procedure instructions reviewed with patient prior to procedure: Yes Currently experiencing pain: No 0 on a scale of 0 to 10 on a scale of 0-10. Does the patient have any concerns about safety in the home/falls?: At risk due to: unsteady gait and use of other ambulatory device cane, and paraplegic . Has the patient had 2 falls in the last year or 1 fall with injury or currently using assistive device (walker, cane, wheelchair, crutches): Yes, patient high risk for falls, provider notified. What interventions were put in place to prevent falls during this visit: Instructed patient to remain seated Increased observations by caregivers Offered assistance with transfers/clothing Has patient had any history of Mitral Valve prolapse: No MEDS:NONE Has patient had any history of prosthetics: No MEDS: NONE Latex allergy: No Iodine allergy: No Tent Finisher offered:Patient declines B/O UA: YES Negative for leukocytes and positive for nitrates. Pt does ISC 5-6x/day. UROFLOWMETRY Unable to perform. Pt cathed for 100 ml. CYSTOMETROGRAM Subtracted:Yes Video: No EMG: Yes First Sensation: 69 ml Strong desire: N/A Max. capacity: 122 ml Maximum filling detrusor pressure 5 cm of water Detrusor overactivity associated with urge: Yes Detrusor overactivity associated with leakage: No Was patient assessed for VLPP / UPP No Leaks urine with valsalva /coughs: No Lowest Leak point pressure: N/A PRESSURE-FLOW VOIDING STUDY Did patient void with catheters in place Yes Voided: 9 ml voluntary Max Voiding Detrusor Pressure 75 cm H2O P det @ Q max (Max Flow): 67 cm H2O Maximum Flow Rate: 2 ml/sec Average Flow Rate: 1 ml/sec Fluro time: N/A Comments: Pt filled to capacity. Pt had urge with rise in PDET with no leaks produced x4. Pt had sustained increased pressure and given permission to void. Pt had voluntary void of 9 ml. Pt cathed for 150 ml. STUDY DETAILS: Was a uroflow done at some point during the study: No Was a cystometrogram performed: Yes Was a UPP/VLPP done: No Was an EMG done: Yes Was an intraabdominal pressure recorded with urethral catheter in: Yes Where were pressure catheters placed: Bladder and Rectum Was contrast instilled for radiologic evaluation: No Please use Urodynamic Graph. Pt given verbal home going instructions. Pt states an understanding of instructions given. documented in this encounterBucyrus Community Hospital04-16-2024 NotePatient Outreach (UROLYSSA) SARMAD ALMEIDA ([id number]) 1950 M Date Time Provider Department 11/29/23 ALEX NEWMAN During your visit today, we recorded the following information about you: Allergies As of Date: 11/29/2023 Noted Allergy Reaction AMOXACILLIN (AMOXICILLIN) 04/13/2016 16 - Unknown AUGMENTIN (AMOXICILLIN-POT CLAVUL*04/13/2016 14 - Other: See Comments Comments: Nausea Date Reviewed: 11/29/2023 Reviewed by: Lilliana Jacobson RN - Fully Assessed Visit Diagnosis:Screening for genitourinary condition [Z13.89] Order(s):URINALYSIS, REFLEX MICROSCOPIC [[id number]] Order #: [id number] Prescriptions as of 12/02/2023 - CPAP/BIPAP/OTHER autopap [id number] Undafin - senna (SENOKOT) 8.6 mg tab Take 8.6 mg by mouth. - glimepiride (AMARYL) 2 mg tablet Take 2 mg by mouth as directed. - allopurinol (ZYLOPRIM) 300 mg tablet Take 300 mg by mouth. - atorvastatin (LIPITOR) 20 mg tablet Take 20 mg by mouth. - metFORMIN (GLUCOPHAGE) 1,000 mg tablet Take 1,000 mg by mouth once daily. - SITagliptin (JANUVIA) 100 mg tablet Take 100 mg by mouth once daily. - losartan (COZAAR) 50 mg tablet Take 50 mg by mouth once daily. - levothyroxine (SYNTHROID) 88 mcg tablet Take 88 mcg by mouth once daily. - amLODIPine-benazepril (LOTREL) 5-10 mg per capsule Take 1 capsule by mouth once daily. - buPROPion XL (WELLBUTRIN XL) 150 mg 24 hr tablet Take 150 mg by mouth. - venlafaxine ER (EFFEXOR XR) 75 mg 24 hr capsule Take 75 mg by mouth once daily. - venlafaxine ER (EFFEXOR XR) 150 mg 24 hr capsule Take 150 mg by mouth. - Tadalafil 5 mg tablet Take 5 mg by mouth as needed. 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 Problem List As Of Date 11/29/2023 Noted Resolved ADD (attention deficit hyperactivity disorder, *12/07/2016 Snoring [R06.83] 12/30/2020 Excessive daytime sleepiness [G47.19] 12/30/2020 Retention of urine [R33.9] 11/11/2023 Encounter Status:Closed by Coupay, [facility]OD[facility]23[facility] History of Present illness Narrative* Ayush Gonzalez, ASBESTOS WIRE FINISHER-ADDRESSOGRAPH OPERATOR - 09/22/2023 10:30 AM EST [facility] Dr. Sarmad Finley MD [place], Department of Neurosurgery Director of Neurosurgical Oncology [facility] [place] [address] ESTABLISHED VISIT NOTES SUMMARY OF CARE DIAGNOSIS: 1. Lumbar spinal stenosis 2. Thoracic epidural abscess 3. S/p T1-T4 laminectomy PROCEDURES RELATED TO CARE: 1. Surgery (01/02/19) SURGEON: Sarmad Finley MD ASSISSTANT: Coco Booker MD PREOPERATIVE DIAGNOSES 1. Chronic low back pain with bilateral sciatica. 2. Lumbar stenosis. 3. Right flank/iliac pain. 4. Paresthesias. 5. Lumbar canal and foraminal stenosis associated with ligamentous hypertrophy, disc herniation andbilateral facet arthropathy (L1-2). POSTOPERATIVE DIAGNOSES 1. Chronic low back pain with bilateral sciatica. 2. Lumbar stenosis. 3. Right flank/iliac pain. 4. Paresthesias. 5. Lumbar canal and foraminal stenosis associated with ligamentous hypertrophy, disc herniation andbilateral facet arthropathy (L1-2).. OPERATIVE PROCEDURES 1. L1 complete laminectomy, L2 partial laminectomy and L1-2 bilateral foraminotomies. 2. L1-2 partial bilateral facetectomies. 3. L1-L2 posterior lumbar interbody fusion with bilateral [id number]-mm DePuy lordotic Concorde bullet cage (prefilled with milled local autograft bone and fibergraft) including L1/2 diskectomy 4. L1 to L2 instrumented posterolateral arthrodesis/fusion (DePuy Expedium) supplemented with milled local autograft bone and fibergraft BG putty (Prosidyan). 5. L2 vertebral body biopsy 6. Intraoperative fluoroscopy. 7. Intraoperative neurophysiological monitoring with SSEPs and EMGs, including in real-time during the pedicle screw insertion. 2. Surgery (08/02/2021) SURGEON Sarmad Finley MD ASSISTANT HAIRSTYLIST Scott Cunningham MD ANESTHESIA General endotracheal. PREOPERATIVE DIAGNOSES 1. Thoracic epidural abscess versus spine metastasis POSTOPERATIVE DIAGNOSES 1. Same as above OPERATIVE PROCEDURES 1. T1 and T4 partial laminectomy 2. Complete T2 and T3 laminectomy 3. Evacuation of epidural abscess 4. Intraoperative ultrasound 5. Intraoperative fluoroscopy. INTRAOPERATIVE COMPLICATIONS None. ORIGINAL CLINIC PRESENTATION: (12/04/18) Sarmad Almeida is a 68 y.o. male that [facility] for a consultation related to a history of low back pain radiating to his buttocks. He fell in May 2018 and reports he has had back pain since that time. It radiates to his buttocks but not down his legs but he does have tingling down his legs. Denies weakness or incontinence. He has tried NSAIDs with mild relief. His first MRI showed possible infection so he was fully worked up and that was ruled out. He had a repeat MRI that showed a soft tissue structure in the anterior epidural space of L2 creating severe spinal stenosis. IMAGING EXAM: MRI SPINE THORACIC WITH AND WITHOUT CONTRAST, MRI SPINE LUMBAR WITH AND WITHOUT CONTRAST, 09/19/2023 15:12 PM (accession [id number]), 09/19/2023 15:11 PM IMPRESSION: Sequela of discitis/osteomyelitis at the T1-T3 levels with mild progressive vertebral body height loss. No underlying marrow edema or enhancement to suggest residual disease. No abnormal epidural collection. Small amount of cord signal abnormality at this level compatible with chronic cord injury. Postsurgical changes are noted at L1-2 and L5-S1, stable from previous exam. There is mild increase in the degenerative changes at the L2-3 level with moderate spinal canal narrowing. The lumbar spine is otherwise unchanged. ENT CLINIC VISIT PLAN OF CARE A. REVIEW OF SYSTEMS: Nurse Note: Review of Systems Constitutional: Positive for fatigue (grade II). Negative for chills and fever. HENT: Negative for hearing loss and tinnitus. Eyes: Positive for visual disturbance (acuity). Respiratory: Negative for cough and shortness of breath. Cardiovascular: Negative for chest pain and leg swelling. Gastrointestinal: Negative for constipation, diarrhea, nausea and vomiting. Genitourinary: Negative for difficulty urinating. Musculoskeletal: Positive for back pain (Lumbar region, L sided). Negative for neck pain. RLE spasms Skin: Negative for rash. Neurological: Negative for dizziness, tremors, seizures, speech difficulty, weakness, light-headedness, numbness and headaches. Hematological: Does not bruise/bleed easily. Psychiatric/Behavioral: Negative for confusion and decreased concentration. The patient is not nervous/anxious. B. ASSESSMENT AND PHYSICAL EXAM: Smoking Status Never Vitals: 09/22/23 1009 BP: 160/78 Pulse: 85 Resp: 18 Temp: 97 F (36.1 C) SpO2: 96% Patient examined by Dr. Finley (see physician note for physical exam) C. IMPRESSION AND PLAN OF CARE: Sarmad Almeida is a 72 y.o. male with history of L1-L2 [place] [address] Finley. In Jul 2021,he presented to [facility] with acute paralysis in the setting of sepsis, he was found to have an epidural abscess at T2-T3 causing severe cord compression. Pt was urgently taken to the OR for T1-[id number] for evacuation of epidural abscess with Dr. Finley on 08/02/2021. Patient presents todayfor review of recent MRI Thoracic and Lumbar imaging, clinical symptom evaluation and care planningdiscussion. Patient reports increased left sided lumbar back pain. He is currently doing PT. Statespain is causing trouble with ambulation. The patient evaluated by Dr. Finley, all relevant imaging was reviewed. MRI Thoracic and Lumbar spine shows postsurgical changes at L1-2 and L5-S1, which are stable from previous exam, along with mild increase in degenerative changes at the L2-3. Dr. Finley recommended that the patient continue with PT and physical activity. Patient was advised to call with new or worsening neurological symptoms. The patient agrees with the plan. Plan: - Continue with PT and physical activity - RTC - PRN This case was discussed, and the plan of care was developed mutually with Dr. Finley. * Steff Campos RN - 09/22/2023 10:30 AM EST Nurse Note: Review of Systems Constitutional: Positive for fatigue (grade II). Negative for chills and fever. HENT: Negative for hearing loss and tinnitus. Eyes: Positive for visual disturbance (acuity). Respiratory: Negative for cough and shortness of breath. Cardiovascular: Negative for chest pain and leg swelling. Gastrointestinal: Negative for constipation, diarrhea, nausea and vomiting. Genitourinary: Negative for difficulty urinating. Musculoskeletal: Positive for back pain (Lumbar region, L sided). Negative for neck pain. RLE spasms Skin: Negative for rash. Neurological: Negative for dizziness, tremors, seizures, speech difficulty, weakness, light-headedness, numbness and headaches. Hematological: Does not bruise/bleed easily. Psychiatric/Behavioral: Negative for confusion and decreased concentration. The patient is not nervous/anxious. Nursing Assessment: Physical Exam Confirmed pharmacies on file * Sarmad Finley MD - 09/22/2023 10:30 AM EST I saw and examined Sarmad Almeida today with my LAURA, Ayush Gonzalez. Sarmad Almeida is a 72 y.o. male with history of spinal abscess s/p surgical evacuation and antibiotics. He has made remarkable neurologic recovery, but does have persistent weakness and low back pain. I agree with the history of present illness, past medical history, family history, social history, medication list, allergies listed, and current complaints. I have personally reviewed all labs and radiographs as well as medical records and I confirm the findings noted above. I agree with the assessment and plan as noted above. Awake, alert ox4 Eomfull Tml B UE 5/5 B LE 4-4+/5 The imaging reviewed today includes: MRI: Sequela of discitis/osteomyelitis at the T1-T3 levels with mild progressive vertebral body height loss. No underlying marrow edema or enhancement to suggest residual disease. No abnormal epidural collection. Small amount of cord signal abnormality at this level compatible with chronic cord injury. Postsurgical changes are noted at L1-2 and L5-S1, stable from previous exam. There is mild increase in the degenerative changes at the L2-3 level with moderate spinal canal narrowing. The lumbar spine is otherwise unchanged. At this time, I feel we should proceed with PT and encourage physical activity. The plan was developed mutually at the time of the clinic visit. The nurse practitioner/physician news assistant and I have spoken with the patient and provided written and verbal instructions for the patient. The above note has been reviewed and I agree with the assessment and plan. Sarmad Finley MD documented in this [facility]02-08-2024 Instructions* Patient Instructions* Rakel Luz RN - 09/22/2023 10:30 AM EST We are here to assist you through your care at [facility] and [facility]! Your Care Team from today's visit included: Neurosurgeon- Dr. Toi Finley Nurse Practitioner- PALLAVI Alston Nurse Practitioner- Ayush Gonzalez APRN-ORIANA Primary Nurse - IMAN Saldana, RN The Neurosurgery clinic and scheduling staff can be reached at [phone]. Please call if you develop new or worsening symptoms, also with any additional questions regarding your visit today or if you need to contact the doctor. You will speak with a spares scheduler, who will take a message and forward it to the clinical team. The primary nurse will return your call within 24 hours, assess your problem, consult with your medical team, and give direction on what should be done. We are not able to accommodate walk-in appointments. This is to provide the best possible care we can to all our patients. For any questions, comments, or concerns during after-hours (past 4:00pm M-F), weekends, and/or during a holiday please call [phone] and speak with the after-hours service. You will be connectedto the neurosurgery resident cardiothoracic surgeon. New or worsening neurological symptoms can include, but are not limited to: weakness, confusion, difficulty walking, vision/hearing/speech changes, seizures or extremity tremors, and persistent headaches. If it is an emergency you will need to go to your local ER. Ask them to fax your records to us so that we can update our team, fax number [phone]. If you experience seizures affecting the whole body, with or with out loss of consciousness, or stroke like symptoms please call 911 and get evaluated at local Emergency Room. The neurosurgery team typically does not refill medications. Please reach out to your primary care physician for any post-hospital or post- surgical medication refill requests. Family Medical Leave paperwork is available through your human resources department. Please allow 10-14 business days for completion of paperwork from our office. Documentation can be faxed to [phone]. Your feedback is important to our team. You may receive a survey in the mail following today's appointment. We would appreciate if you could take a few minutes to complete the survey and return it inthe envelope provided. Your response will be confidential and used to enhance patient care and address areas of opportunity. Thank you The Oncology Distress Screening, or Patient-Reported Outcomes Measurement Information System (PROMIS) questionnaire, is a validated tool used for recording self-reported measures of global, physical,mental and social health for adults in the general population and those living with a chronic condition. You will receive this questionnaire via [employer]. Please complete so your providers at [facility] can better help you! documented [facility] this [facility] NoteHNO ID: [id number] Author: YARY FERNANDO MD Service: ? Author Type: Physician Type: Progress Notes Filed: 09/21/2023 17:13 Note Text: [facility] UROLOGY NEW PATIENT CLINIC NOTE SERVICE DATE: 09/21/2023 NAME: Sarmad Almeida REFERRED BY: Dina Ortiz [address] [facility] [id number] Ortiz for an opinion regarding neurogenic bladder. My final recommendations will be communicated back to the requesting physician by way of shared Medical record or letter to requesting physician via US mail. CHIEF COMPLAINT Bladder stimulator HISTORY OF PRESENT ILLNESS Mr. 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, GI bleeding 2/2 duodenal ulcer, cirrhosis, anemia, ELLEN, DM2, depression who presents for evaluation for neurogenic He he here to discuss interstim for neurogenic bladder Had epidural abscess complicated by temporary paraplegia 3 month hospital course - Gi bleed, hematuria w clot evac Many months of PT Is now ambulating w rare use of cane Remains on CIC for urinary retention Prior to injury voided without issues Last cysto was in the hospital with clot evac Had UDS but no records of this Has had 3 spinal fusions thoracic and lumbar and ?sacral Caths 4-5 times/24h Average volume 6-8 oz Rare leakage with urge w full bladder Diabetic - estimates A1c is around 7.3 but no recent labs Bowels - does have some urgency with occasional fecal incontinence Had decubs during hospital stay but none now Prior ex lap for colon perf PAST MEDICAL HISTORY No past medical history on file. PAST SURGICAL HISTORY No past surgical history on file. FAMILY HISTORY FAMILY HISTORY Problem Relation Age of Onset Kidney Disease Mother Heart disease Father Heart disease Brother SOCIAL HISTORY Social History Tobacco Use Smoking status: Never Smokeless tobacco: Never MEDICATIONS Current Outpatient Medications Medication Sig CPAP/BIPAP/OTHER autopap [id number] Fit with [employer] tiffin senna (SENOKOT) 8.6 mg tab Take 8.6 mg by mouth. glimepiride (AMARYL) 2 mg tablet Take 2 mg by mouth as directed. allopurinol (ZYLOPRIM) 300 mg tablet Take 300 mg by mouth. atorvastatin (LIPITOR) 20 mg tablet Take 20 mg by mouth. metFORMIN (GLUCOPHAGE) 1,000 mg tablet Take 1,000 mg by mouth once daily. SITagliptin (JANUVIA) 100 mg tablet Take 100 mg by mouth once daily. losartan (COZAAR) 50 mg tablet Take 50 mg by mouth once daily. levothyroxine (SYNTHROID) 88 mcg tablet Take 88 mcg by mouth once daily. amLODIPine-benazepril (LOTREL) 5-10 mg per capsule Take 1 capsule by mouth once daily. buPROPion XL (WELLBUTRIN XL) 150 mg 24 hr tablet Take 150 mg by mouth. venlafaxine ER (EFFEXOR XR) 75 mg 24 hr capsule Take 75 mg by mouth once daily. venlafaxine ER (EFFEXOR XR) 150 mg 24 hr capsule Take 150 mg by mouth. Tadalafil 5 mg tablet Take 5 mg by mouth as needed. No current facility-administered medications for this visit. CURRENT ALLERGIES Allergies As of Date: 09/21/2023 Allergen Noted Reaction AMOXACILLIN [AMOXICILLIN] 04/13/2016 Unknown AUGMENTIN [AMOXICILLIN-POT CLAVUL*04/13/2016 Other: See Comments Fully Assessed 09/21/2023 COMPLETE REVIEW OF SYSTEMS REVIEW OF SYSTEMS See hpi OBJECTIVE PHYSICAL EXAM: the patient was offered a cardiothoracic surgeon and declined 09/21/23 1452 BP: 172/103 Pulse: 93 There is no height or weight on file to calculate BMI. 09/21/23 1452 BP: 172/103 Pulse: 93 General: pleasant Psych: euthymic, NAD Neuro: AANDOx3. CV: normal perfusion, hemodynamically stable Resp: normal effort Abdomen: soft, NT, well healed midline incision and reducible ventral hernia Circ phallus, testes down, no lesions Three areas of spinal fusion - thoracic 2-4, lumbar t12-L1, ?sacral DATA Labs No results found for: WBC , HB , HCT , PLT , NA , K , CHLOR , CO2 , BUN , CREAT ASSESSMENT/PLAN 72 M w incomplete paraplegia following epidural abscess and three spinal fusions (lumbar, upper thoracic, ?sacral) with NGB on CIC, fecal incontinence He is interested in interstim I will refer him to one of my colleagues Will need UDS and spine imaging records Yary Fernando MD Associate Staff [facility] Department of Urology I spent a total of 25 minutes on the date of the service which included preparing to see the patient, [id number] patient care, completing clinical documentation, obtaining and/or reviewing separately obtained history, performing a medically appropriate examination, counseling and educating the patient/family/caregiver, and ordering medications, tests, or procedures. >50% of time was devoted to patient counseling.[id number] History of Present illness Narrative* Yary Fernando MD - 09/21/2023 2:00 PM EST Images from the original note were not included. [facility] UROLOGY NEW PATIENT CLINIC NOTE SERVICE DATE: 09/21/2023 NAME: Sarmad Almeida REFERRED BY: Dina Ortiz [address] [place] [address] Ortiz for an opinion regarding neurogenic bladder. My final recommendations will be communicated back to the requesting physician by way of shared Medical record or letterto requesting physician via [place] mail. CHIEF COMPLAINT Bladder stimulator HISTORY OF PRESENT ILLNESS Mr. 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, GI bleeding 2/2 duodenal ulcer, cirrhosis, anemia, ELLEN, DM2, depression who presents for evaluation for neurogenic He he here to discuss interstim for neurogenic bladder Had epidural abscess complicated by temporary paraplegia 3 month hospital course - Gi bleed, hematuria w clot evac Many months of PT Is now ambulating w rare use of cane Remains on CIC for urinary retention Prior to injury voided without issues Last cysto was in the hospital with clot evac Had UDS but no records of this Has had 3 spinal fusions thoracic and lumbar and ?sacral Caths 4-5 times/24h Average volume 6-8 oz Rare leakage with urge w full bladder Diabetic - estimates A1c is around 7.3 but no recent labs Bowels - does have some urgency with occasional fecal incontinence Had decubs during hospital stay but none now Prior ex lap for colon perf PAST MEDICAL HISTORY No past medical history on file. PAST SURGICAL HISTORY No past surgical history on file. FAMILY HISTORY FAMILY HISTORY Problem Relation Age of Onset Kidney Disease Mother Heart disease Father Heart disease Brother SOCIAL HISTORY Social History Tobacco Use Smoking status: Never Smokeless tobacco: Never MEDICATIONS Current Outpatient Medications Medication Sig CPAP/BIPAP/OTHER autopap [id number] [facility] Contact At Once! tiffin senna (SENOKOT) 8.6 mg tab Take 8.6 mg by mouth. glimepiride (AMARYL) 2 mg tablet Take 2 mg by mouth as directed. allopurinol (ZYLOPRIM) 300 mg tablet Take 300 mg by mouth. atorvastatin (LIPITOR) 20 mg tablet Take 20 mg by mouth. metFORMIN (GLUCOPHAGE) 1,000 mg tablet Take 1,000 mg by mouth once daily. SITagliptin (JANUVIA) 100 mg tablet Take 100 mg by mouth once daily. losartan (COZAAR) 50 mg tablet Take 50 mg by mouth once daily. levothyroxine (SYNTHROID) 88 mcg tablet Take 88 mcg by mouth once daily. amLODIPine-benazepril (LOTREL) 5-10 mg per capsule Take 1 capsule by mouth once daily. buPROPion XL (WELLBUTRIN XL) 150 mg 24 hr tablet Take 150 mg by mouth. venlafaxine ER (EFFEXOR XR) 75 mg 24 hr capsule Take 75 mg by mouth once daily. venlafaxine ER (EFFEXOR XR) 150 mg 24 hr capsule Take 150 mg by mouth. Tadalafil 5 mg tablet Take 5 mg by mouth as needed. No current facility-administered medications for this visit. CURRENT ALLERGIES Allergies As of Date: 09/21/2023 Allergen Noted Reaction AMOXACILLIN [AMOXICILLIN] 04/13/2016 Unknown AUGMENTIN [AMOXICILLIN-POT CLAVUL*04/13/2016 Other: See Comments Fully Assessed 09/21/2023 COMPLETE REVIEW OF SYSTEMS REVIEW OF SYSTEMS See hpi OBJECTIVE PHYSICAL EXAM: the patient was offered a cardiothoracic surgeon and declined 09/21/23 1452 BP: 172/103 Pulse: 93 There is no height or weight on file to calculate BMI. 09/21/23 1452 BP: 172/103 Pulse: 93 General: pleasant Psych: euthymic, NAD Neuro: A&Ox3. CV: normal perfusion, hemodynamically stable Resp: normal effort Abdomen: soft, NT, well healed midline incision and reducible ventral hernia Circ phallus, testes down, no lesions Three areas of spinal fusion - thoracic 2-4, lumbar t12-L1, ?sacral DATA Labs No results found for: WBC , HB , HCT , PLT , NA , K , CHLOR , CO2 , BUN , CREAT ASSESSMENT/PLAN 72 M w incomplete paraplegia following epidural abscess and three spinal fusions (lumbar, upper thoracic, ?sacral) with NGB on CIC, fecal incontinence He is interested in interstim I will refer him to one of my colleagues Will need UDS and spine imaging records Yary Fernando MD Associate Staff [facility] Department of Urology I spent a total of 25 minutes on the date of the service which included preparing to see the patient, [id number] patient care, completing clinical documentation, obtaining and/or reviewing separately obtained history, performing a medically appropriate examination, counseling and educating the pat ient/family/caregiver, and ordering medications, tests, or procedures. >50% of time was devoted to patient counseling. [facility] + Plan note Diagnostic Tests Pending * Urine Culture 08/03/23 [facility]12-20-2023 Hospital Discharge instructions Patient Education 08/03/2023 11:15:25 Sacral Nerve Stimulator Implantation Sacral Nerve Stimulator Implantation Sacral nerve stimulator implantation is a procedure to place a device under the skin. The device isused to treat disorders that make it hard to control urine and bowel movements. The device generates mild electrical impulses. It is placed permanently in the area of the upper buttocks. Wires (electrodes) are also inserted into the body so that electrical impulses generated by the device can be sent to the sacral nerves. The sacral nerves control several functions in the lower part of the body, including the passing of urine and stool. Before having sacral nerve stimulator implantation, you may undergo a trial test called a percutaneous nerve evaluation. This trial, which usually lasts 1 2 weeks, helps to determine if sacral nerve stimulation will help your condition. Sacral nerve stimulator implantation is a two-stage surgery. Stage 1 of this surgery involves implanting an electrode into your lower back, near your sacral nerve. A wire (lead) is attached to the electrode and run under the skin to exit through your back. The sacral nerve stimulator lead is attached to a handheld device. This trial helps determine if sacral nerve stimulation will help your condition. If your bladder symptoms improve by at least 50 percent during the trial phase, you may have the second stage. After the device is fully implanted in stage 2, it can be used 24 hours a day. The stimulator will be programmed for you. Your health care provider will set how strong the pulses will be (intensity) and how often they occur (frequency). Tell a health care provider about: Any allergies you have. All medicines you are taking, including vitamins, herbs, eye drops, creams, and pxpa-tuk-wbqunwk medicines. Any problems you or family members have had with anesthetic medicines. Any blood disorders you have. Any surgeries you have had. Any medical conditions you have or have had. Whether you are or may be . What are the risks? Generally, this is a safe procedure. However, problems may occur, including: Infection. Bleeding. Uncomfortable sensations, such as a jolting or shocking feeling. Movement of the electrode away from the place where it was inserted (migration). Failure of the stimulator. Damage to nearby structures or organs, such as nerves near the spine. Allergic reactions to medicines or the device. What happens before the procedure? Staying hydrated Follow instructions from your health care provider about hydration, which may include: Up to 2 hours before the procedure you may continue to drink clear liquids, such as water, clear fruit juice, black coffee, and plain tea. Eating and drinking restrictions Follow instructions from your health care provider about eating and drinking, which may include: 8 hours before the procedure stop eating heavy meals or foods, such as meat, fried foods, or fatty foods. 6 hours before the procedure stop eating light meals or foods, such as toast or cereal. 6 hours before the procedure stop drinking milk or drinks that contain milk. 2 hours before the procedure stop drinking clear liquids. Medicines Ask your health care provider about: Changing or stopping your regular medicines. This is especially important if you are taking diabetes medicines or blood thinners. Taking medicines such as aspirin and ibuprofen. These medicines can thin your blood. Do not take these medicines unless your health care provider tells you to take them. Taking ymwk-pzs-iwlltwq medicines, vitamins, herbs, and supplements. General instructions Plan to have a responsible adult take you home from the hospital or clinic. If you will be going home right after the procedure, plan to have a responsible adult care for you for the time you are told. This is important. Ask your health care provider what steps will be taken to help prevent infection. These steps may include: ?Removing hair at the surgery site. ?Washing skin with a germ-killing soap. ?Taking antibiotic medicine. What happens during the procedure? An IV will be inserted into one of your veins. You will be given one or more of the following: ?A medicine to help you relax (sedative). ?A medicine to numb the area (local anesthetic). ?A medicine to make you fall asleep (general anesthetic). Long needles will be inserted into your lower back. The needles will be guided to the place where the nerves exit the backbone. The position of the needles will be tested. If they are in the right spot, your toes or feet may move. If you are awake, you may feel a tingling in your legs. The electrodes will be inserted through the needles and into your body. The electrodes will be anchored in place close to your sacral nerves. Small incisions will be made under the skin in your upper buttocks. The sacral nerve stimulator device will be placed in this area. The ends of the electrodes that attach to the stimulator will be guided under your skin. They will extend from your sacral nerves, where they are anchored, to the stimulator device. They will then beattached to the device. Your health care provider will program the rate at which the nerve stimulator will deliver the electronic pulses. The incisions will be closed with stitches (sutures) or saurabh. A bandage (dressing) will be placed over the incision area. The procedure may vary among health care providers and hospitals. What happens after the procedure? Your blood pressure, heart rate, breathing rate, and blood oxygen level will be monitored until youleave the hospital or clinic. You may be given pain and antibiotic medicine as needed. You will be taught how to use and care for the device. If you were given a sedative during the procedure, it can affect you for several hours. Do not drive or operate machinery until your health care provider says that it is safe. Summary Sacral nerve stimulator implantation is a procedure to place a device under your skin. The device will treat disorders that make it hard to control urine and bowel movements. The sacral nerves control several functions in the lower part of the body, including bladder and bowel functions. If you will be going home right after the procedure, plan to have a responsible adult care for you for the time you are told. You will be taught how to use and care for the device. If you were given a sedative during the procedure, do not drive until your health care provider approves. This information is not intended to replace advice given to you by your health care provider. Make sure you discuss any questions you have with your health care provider. Document Revised: 03/06/2021 Document Reviewed: 03/06/2021 [employer] Patient Education 2022 [employer]. Follow Up Care 07/19/2023 15:25:13 With:Angel CALDERON, KATRINA Martines, URO Address: [address], [place] [address] [phone] When: Unknown Comments:alan [facility] 10-12-2023 Hospital Discharge instructions Patient Education 05/26/2023 13:53:58 Clean Intermittent Catheterization, Male Clean Intermittent Catheterization, Male Clean intermittent catheterization (CIC) is a procedure to remove urine from the bladder by placinga small, flexible tube (catheter) into the bladder though the urethra. The urethra is a tube in thebody that carries urine from the bladder out of the body. CIC may be done when: You cannot completely empty your bladder on your own. This may be due to a blockage in the bladder or urethra. Your bladder leaks urine. This may happen when the muscles or nerves near the bladder are not working normally, so the bladder overflows. Your health care provider will show you how to perform CIC and will help you to become comfortable performing this procedure at home. Your health care provider will also help you to get the home caresupplies that are needed for this procedure. Supplies needed: Germ-free (sterile), water-based lubricant. A container for urine collection. You may also use the toilet to dispose of urine from the catheter. A catheter. Your health care provider will determine the best size for you. ?Use this catheter size: Clean gloves. Soap and water. Towel. How to perform this procedure: Most people need CIC at least 4 times per day to adequately empty the bladder. Your health care provider will tell you how often you should perform CIC. Number of times per day to perform CIC: To perform CIC, follow these steps: 1.Wash your hands with soap and water. If soap and water are not available, use hand wastewater treatment plant instructor. 2.Clean your penis with soap and water. Dry the tip of your penis completely. 3.Prepare the supplies that you will use during the procedure. Open the catheter package and lubricant. 4.Get in a comfortable position. Possible positions include: Sitting on a toilet, a chair, or the edge of a bed. Standing near a toilet. Lying down with your head raised on pillows and your knees pointing to the ceiling. You may wish toplace a waterproof mat or pad under you. 5.If you are using a urine collection container, position it between your legs. 6.Urinate, if you are able. 7.Put on gloves. 8.Apply lubricant to about 2 inches (5 cm) of the tip of the catheter. 9.Set the catheter down on a clean, dry surface within reach. 10.Gently stretch your penis out from your body. Pull back any skin that covers the end of your penis (foreskin). Clean the end of your penis with medicated sterile swabs as told by your health care provider. 11.Hold your penis upward at a 45 60 degree angle. This helps to straighten the urethra. 12.Slowly insert the lubricated catheter straight into your urethra until urine flows freely. This is usually about 6 8 inches (15 20 cm). 13.When urine starts to flow freely, insert the catheter 1 inch (3 cm) more. Allow urine to drain into the toilet or the urine collection container. 14.When urine stops flowing, slowly remove the catheter. 15.Note the color, amount, and odor of the urine. 16.Measure your urine and note the amount, if told by your health care provider. 17.Discard the urine in the toilet. 18.Clean your penis using soap and water. 19.Move the foreskin back in place, if applicable. 20.If you are using a single-use catheter, discard the catheter and supplies. 21.Wash your hands with soap and water. 22.If you are using a reusable catheter, follow package instructions about how to clean the catheter after each use. How often should I perform this procedure? Do CIC to empty your bladder every 4 6 hours or as often as told by your health care provider. If you have symptoms of too much urine in your bladder (overdistension) and you are not able to urinate, perform CIC. Symptoms of overdistension may include: ?Restlessness. ?Sweating or chills. ?Headache. ?Flushed or pale skin. ?Bloated lower abdomen. What are the risks? Generally, this is a safe procedure, however problems may occur, including: Infection. Injury to the urethra. Irritation of the urethra. Follow these instructions at home General instructions Drink enough fluid to keep your urine pale yellow. Dispose of a multiple use catheter when it becomes dry, brittle, or cloudy. This usually happens after you use the catheter for 1 week. Avoid caffeine. Caffeine may make you need to urinate more frequently and more urgently. When traveling, bring extra supplies with you in case of delays. Keep supplies with you in a place that you can access easily. If traveling by plane: ?Make sure that the lubricant in your carry-on bag is less than 3.4 ounces (100 mL). ?Use a single-use catheter. It may be difficult to clean a reusable catheter in a small bathroom. Take ocfz-fcz-ubmryyh and prescription medicines only as told by your health care provider. Keep all follow-up visits as told by your health care provider. This is important. Contact a health care provider if you: Have difficulty performing CIC. Have urine leaking during CIC. Have: ?Dark or cloudy urine. ?Blood in your urine or in your catheter. ?A change in the smell of your urine or discharge. ?A burning feeling while you urinate. Feel nauseous or you vomit. Have pain in your abdomen, your back, or your sides below your ribs. Have swelling or redness around the opening of your urethra. Develop a rash or sores on your skin. Get help right away if you have: A fever. Symptoms that do not go away after 3 days. Symptoms that suddenly get worse. Severe pain. A decrease in the amount of urine that drains from your bladder. Summary Clean intermittent catheterization (CIC) is a procedure to remove urine from the bladder by placinga small, flexible tube (catheter) into the bladder though the urethra. Your health care provider will show you how to perform CIC and will help you to become comfortable performing this procedure at home. Most people need CIC at least 4 times per day to adequately empty the bladder. This information is not intended to replace advice given to you by your health care provider. Make sure you discuss any questions you have with your health care provider. Document Revised: 06/07/2022 Document Reviewed: 06/07/2022 [employer] Patient Education 2022 [employer]. Follow Up Care 04/15/2023 11:48:56 With:Angel CALDERON, Dina James, URHumberto, URO Address: When: Unknown [facility] 04-28-2023 Hospital Discharge instructions Follow Up Care 12/10/2022 12:30:03 With:Dina Ortiz MD, KATRINA, URO Address: When: Unknown [facility] 03-22-2023 Miscellaneous Notes* Telephone Encounter - Nash Hurtado - 11/03/2022 2:25 PM EDT SLEEP CMN REJECTION NOTICE We received a Certificate of Medical Necessity(CMN) from the [employer], [employer] - - , via fax. Patients are required ozzie seen in the sleep department at least once a year to have this Certificate of Medical Necessity(CMN) form completed. The last visit in the sleep department was on 02/06/21, and therefore an appointment is required. Please contact our Scheduling Department at: [phone] or [phone]. Thank you, [facility] documented [facility] History of Present illness Narrative* Nash Hurtado - 11/03/2022 2:14 PM EDT Open In Error documented in [facility]02-[facility]-2023 NoteCONSULTATION CONSULTATION DATE: 09/21/2022 REASON FOR CONSULTATION: Left rectus sheath spontaneous hematoma. HISTORY OF PRESENT ILLNESS: Patient is a 71-year-old male with multiple medical problems including hypertension, type 2 diabetes, degenerative lumbar spinal stenosis, paraplegia, neurogenic bladder, iron deficiency anemia, as well as malnutrition, who developed a cough recently and this morning was noted to have severe upper abdominal pain. He presented to the emergency room where workup revealed evidence of a spontaneous left rectus sheath hematoma, with what appeared to be some active extravasation within the hematoma. Patient's initial hemoglobin was 9.7, which is around his baseline, but he did have some evidence of dehydration on his laboratory evaluation. After hydration and four hours in the hospital, his hemoglobin was down to 8. Four hours later, it remained stable at that. He was admitted, placed in an abdominal binder and was in minimal discomfort since then. He has been hypertensive, because he has not been taking anti-hypertensive medications. So, he has now just resumed all of his medications. His past abdominal surgeries are significant for a partial colectomy via midline incision for perforated diverticulitis. He has also had a remote appendectomy. He denies any anticoagulants, aspirin, NSAIDs or other gcnb-bck-qzicxfq medications. The CT did show evidence of cirrhosis, but he has not had bleeding problems in the past, and does not have ascites or LFT abnormalities. His coagulation factors in the emergency room were normal as was his platelet count. ALLERGIES: Patient does have allergies to amoxicillin and shellfish. HOME MEDICATIONS: Include allopurinol, atorvastatin 10, Wellbutrin, ferrous sulfate, levothyroxine, lisinopril, metformin, multivitamin, protonix, Januvia and Effexor. PAST SURGICAL HISTORY: A noted in the HPI. He has also had knee surgery. SOCIAL HISTORY: He is a non-smoker, denies alcohol use or illicit drug use. FAMILY HISTORY: Noncontributory. REVIEW OF SYSTEMS: Ten system review of systems is negative for recent weight loss or weight gain. He has had no fever, chills or night sweats. No earache or tinnitus. No sinus congestion. No sore throat or hoarseness. He has had the cough. He is not bringing anything up. He has had no hemoptysis. No nausea or vomiting. He has had the upper abdominal pain, primarily left sided, which has improved. No bowel changes. He reports some constipation with no bowel movements in the last couple days. No melena or hematochezia. No dysuria, frequency, urgency or hematuria. No headaches, seizures or tremors. No easy bruising or bleeding. No heat or cold intolerance. No polydipsia, polyphagia or polyuria. PHYSICAL EXAM: VITAL SIGNS: He is afebrile. Blood pressure is 116/60. Pulse is 86 and regular. Respiratory rate is 18. O2 saturation is 98% on room air. GENERAL: In general, he is a well developed, well nourished male, currently in acute distress. HEENT: Normocephalic, atraumatic. Sclerae anicteric. Conjunctiva not injected. Oral mucosa is moist, without lesions. NECK: Supple. There is no adenopathy, thyromegaly or JVD. LUNGS: Clear bilaterally. CARDIAC EXAM: Regular rhythm and rate without appreciable murmurs, rubs or gallops. ABDOMEN: Soft. There is fullness in the left upper rectus sheath, which is mildly tender and firm. There is no overlying ecchymoses. There is a well healed midline incision with some evidence of small chronically incarcerated hernias. There are no masses, hepatosplenomegaly. No CVA tenderness. SKIN: Warm and dry without lesions, rashes or ulcers. NEURO EXAM: Non-focal. He does have lower extremity weakness which is chronic. Patient is awake, alert, oriented with appropriate affect. IMAGING: CT scan was personally reviewed, which does reveal a left rectus sheath hematoma with possible small area of extravasation from the artery. IMPRESSION: Overall, this is consistent with a spontaneous rectus sheath hematoma from branch bleeding from a branch of the epigastric vessels, likely due to coughing. It appears that the bleeding has stabilized with regards to the stable H AND H over the last several hours. He does feel better with an abdominal binder on for compression. RECOMMENDATIONS: Would recommend controlling his blood pressure, continuing with the serial H AND Hs. The vast majority of these will stop spontaneously and he is not on any anticoagulation nor has any known coagulation disorders. He can be advanced to a full liquid diet, but I would not advance to regular yet. If his hemoglobin does stay stable overnight, he can likely be discharged with the abdominal binder. Should he have continued ongoing bleeding, the primarily treatment would be Angio-Seal embolization, which would likely require a transfer. This is usually required in less than 20% of cases. Thank you for all (more content not included)...[id number] Hospital Discharge instructions Patient Education 07/28/2022 13:17:29 Neurogenic Bladder Neurogenic Bladder Neurogenic bladder is a bladder control disorder. It is usually caused by problems with the nerves that control the bladder. Your brain sends signals through your spinal cord to the muscles in your bladder that start and stop urine flow. If you have neurogenic bladder, the nerves and muscles do notwork together the way they should. This condition may make the bladder overactive, meaning you have trouble holding urine. In other cases, it may make the bladder underactive, meaning you have trouble passing urine. What are the causes? This condition may be caused by any kind of nerve damage or condition that disrupts the signals from your brain to your bladder. Many things can cause these nerve problems, including: A disease that affects the nervous system, such as: ?Alzheimer disease. ?Cerebral palsy. ?Multiple sclerosis. ?Diabetes. ?Parkinson disease. Damage to your brain or spinal cord. This can come from: ?Trauma. ?Tumors. ?Infection. ?Surgery. ?Alcohol abuse. ?Stroke. ?A congenital disability that affects the spinal cord. What increases the risk? You are more likely to develop this condition if you have nerve damage or a nerve disorder. What are the signs or symptoms? Signs and symptoms of this condition include: Leaking or gushing urine (incontinence). A sudden, strong urge to pass urine (urgency). Frequent urination during the day and night. Being unable to empty your bladder completely (urinary retention). Frequent urinary tract infections. How is this diagnosed? This condition may be diagnosed based on: Your symptoms and medical history. A physical exam. Results of a bladder diary. You may be asked to keep a record of your bladder symptoms and the times that you urinate. You may also have tests, such as: A urine test to check for infection. A bladder scan after you urinate to see how much urine is left in your bladder. Tests to measure your urine flow and see how well the flow is controlled (urodynamic tests). A procedure that uses a small device with a camera to look through your urethra into your bladder (cystoscopy). A health care provider who specializes in the urinary tract (urologist) may do this test. Imaging tests of your brain or spine, such as MRI or CT. How is this treated? Treatment for this condition depends on the cause and the symptoms that you have. Work closely withyour health care provider to find the treatments that will improve your quality of life. Treatment options include: Learning ways to control when you urinate, such as: ?Urinating at scheduled times. ?Training yourself to delay urination. ?Doing exercises to strengthen the muscles that control urine flow (Kegel exercises). ?Avoiding foods or drinks that make your symptoms worse. Taking medicines to: ?Stimulate an underactive bladder. ?Relax an overactive bladder. ?Treat a urinary tract infection. Learning how to use a thin tube (catheter) to empty your bladder. A catheter is a hollow tube that you pass through your urethra. Procedures to stimulate the nerves that control your bladder. Surgery, if other treatments do not help. Follow these instructions at home: Lifestyle Keep a bladder diary to find out which foods, liquids, or activities make your symptoms worse. Use your bladder diary to schedule bathroom trips. If you are away from home, plan to be near a bathroom when your schedule says you will need one. Limit your drinking of beverages that stimulate urination. These include soda, coffee, and tea. After urinating, wait a few minutes and try again (double voiding). Make sure you urinate just before you leave the house and just before you go to bed. Kegel exercises Do Kegel exercises to strengthen the muscles that control the passing of urine. These muscles are the ones you use to try to hold urine when you need to urinate. To do Kegel exercises: 1.Squeeze your pelvic floor muscles tight, as if you are trying to stop the flow of urine. You should feel a tight lift in your rectal area. If you are female, you should also feel a tightness in your vaginal area. Keep your stomach, buttocks, and legs relaxed. 2.Hold the muscles tight for 5 10 seconds. 3.Relax your muscles for the same amount of time. 4.Repeat 10 times. Repeat this exercise 3 times a day or as many times as told by your health care provider. General instructions Take ingn-tjg-lojchzb and prescription medicines only as told by your health care provider. Keep all follow-up visits as told by your health care provider. This is important. Contact a health care provider if: You are having a hard time controlling your symptoms. Your symptoms are getting worse. You have signs of a urinary tract infection. These may include: ?A burning feeling when you urinate. ?Chills. ?Fever. Get help right away if: You cannot pass urine. Summary Neurogenic bladder is a bladder control disorder caused by problems with the nerves that control the bladder. This condition may make the bladder overactive or underactive. This condition may be caused by any kind of nerve damage or condition that disrupts the signals from your brain to your bladder. Treatment depends on the cause of your neurogenic bladder and the symptoms that you have. Work closely with your health care provider to find the treatments that will improve your quality of life. This information is not intended to replace advice given to you by your health care provider. Make sure you discuss any questions you have with your health care provider. Document Released: 02/12/2008 Document Revised: 08/14/2018 Document Reviewed: 08/14/2018 [employer] Patient Education 2020 [employer]. Follow Up Care 07/05/2022 16:00:19 With:Angel CALDERON, KATRINA Martines, URO Address: When:3 months Comments:Elsy ramey/martha [facility] 11-10-2022 Hospital Discharge instructions Patient Education 06/24/2022 15:16:26 Neurogenic Bladder Neurogenic Bladder Neurogenic bladder is a bladder control disorder. It is usually caused by problems with the nerves that control the bladder. Your brain sends signals through your spinal cord to the muscles in your bladder that start and stop urine flow. If you have neurogenic bladder, the nerves and muscles do notwork together the way they should. This condition may make the bladder overactive, meaning you have trouble holding urine. In other cases, it may make the bladder underactive, meaning you have trouble passing urine. What are the causes? This condition may be caused by any kind of nerve damage or condition that disrupts the signals from your brain to your bladder. Many things can cause these nerve problems, including: A disease that affects the nervous system, such as: ?Alzheimer disease. ?Cerebral palsy. ?Multiple sclerosis. ?Diabetes. ?Parkinson disease. Damage to your brain or spinal cord. This can come from: ?Trauma. ?Tumors. ?Infection. ?Surgery. ?Alcohol abuse. ?Stroke. ?A congenital disability that affects the spinal cord. What increases the risk? You are more likely to develop this condition if you have nerve damage or a nerve disorder. What are the signs or symptoms? Signs and symptoms of this condition include: Leaking or gushing urine (incontinence). A sudden, strong urge to pass urine (urgency). Frequent urination during the day and night. Being unable to empty your bladder completely (urinary retention). Frequent urinary tract infections. How is this diagnosed? This condition may be diagnosed based on: Your symptoms and medical history. A physical exam. Results of a bladder diary. You may be asked to keep a record of your bladder symptoms and the times that you urinate. You may also have tests, such as: A urine test to check for infection. A bladder scan after you urinate to see how much urine is left in your bladder. Tests to measure your urine flow and see how well the flow is controlled (urodynamic tests). A procedure that uses a small device with a camera to look through your urethra into your bladder (cystoscopy). A health care provider who specializes in the urinary tract (urologist) may do this test. Imaging tests of your brain or spine, such as MRI or CT. How is this treated? Treatment for this condition depends on the cause and the symptoms that you have. Work closely withyour health care provider to find the treatments that will improve your quality of life. Treatment options include: Learning ways to control when you urinate, such as: ?Urinating at scheduled times. ?Training yourself to delay urination. ?Doing exercises to strengthen the muscles that control urine flow (Kegel exercises). ?Avoiding foods or drinks that make your symptoms worse. Taking medicines to: ?Stimulate an underactive bladder. ?Relax an overactive bladder. ?Treat a urinary tract infection. Learning how to use a thin tube (catheter) to empty your bladder. A catheter is a hollow tube that you pass through your urethra. Procedures to stimulate the nerves that control your bladder. Surgery, if other treatments do not help. Follow these instructions at home: Lifestyle Keep a bladder diary to find out which foods, liquids, or activities make your symptoms worse. Use your bladder diary to schedule bathroom trips. If you are away from home, plan to be near a bathroom when your schedule says you will need one. Limit your drinking of beverages that stimulate urination. These include soda, coffee, and tea. After urinating, wait a few minutes and try again (double voiding). Make sure you urinate just before you leave the house and just before you go to bed. Kegel exercises Do Kegel exercises to strengthen the muscles that control the passing of urine. These muscles are the ones you use to try to hold urine when you need to urinate. To do Kegel exercises: 1.Squeeze your pelvic floor muscles tight, as if you are trying to stop the flow of urine. You should feel a tight lift in your rectal area. If you are female, you should also feel a tightness in your vaginal area. Keep your stomach, buttocks, and legs relaxed. 2.Hold the muscles tight for 5 10 seconds. 3.Relax your muscles for the same amount of time. 4.Repeat 10 times. Repeat this exercise 3 times a day or as many times as told by your health care provider. General instructions Take bsns-odq-qisvczl and prescription medicines only as told by your health care provider. Keep all follow-up visits as told by your health care provider. This is important. Contact a health care provider if: You are having a hard time controlling your symptoms. Your symptoms are getting worse. You have signs of a urinary tract infection. These may include: ?A burning feeling when you urinate. ?Chills. ?Fever. Get help right away if: You cannot pass urine. Summary Neurogenic bladder is a bladder control disorder caused by problems with the nerves that control the bladder. This condition may make the bladder overactive or underactive. This condition may be caused by any kind of nerve damage or condition that disrupts the signals from your brain to your bladder. Treatment depends on the cause of your neurogenic bladder and the symptoms that you have. Work closely with your health care provider to find the treatments that will improve your quality of life. This information is not intended to replace advice given to you by your health care provider. Make sure you discuss any questions you have with your health care provider. Document Released: 02/12/2008 Document Revised: 08/14/2018 Document Reviewed: 08/14/2018 [employer] Patient Education 2019 [employer]. Follow Up Care 06/23/2022 12:36:19 With:MELANIE DAVISON, YARA North, URL Address: [address] [place] [address] When: Unknown [facility] 09-21-2022 Hospital Discharge instructions Patient Education 05/05/2022 11:02:50 Overactive Bladder, Adult Overactive Bladder, Adult Overactive bladder refers to a condition in which a person has a sudden need to pass urine. The person may leak urine if he or she cannot get to the bathroom fast enough (urinary incontinence). A person with this condition may also wake up several times in the night to go to the bathroom. Overactive bladder is associated with poor nerve signals between your bladder and your brain. Your bladder may get the signal to empty before it is full. You may also have very sensitive muscles thatmake your bladder squeeze too soon. These symptoms might interfere with daily work or social activities. What are the causes? This condition may be associated with or caused by: Urinary tract infection. Infection of nearby tissues, such as the prostate. Prostate enlargement. Surgery on the uterus or urethra. Bladder stones, inflammation, or tumors. Drinking too much caffeine or alcohol. Certain medicines, especially medicines that get rid of extra fluid in the body (diuretics). Muscle or nerve weakness, especially from: ?A spinal cord injury. ?Stroke. ?Multiple sclerosis. ?Parkinson's disease. Diabetes. Constipation. What increases the risk? You may be at greater risk for overactive bladder if you: Are an older adult. Smoke. Are going through menopause. Have prostate problems. Have a neurological disease, such as stroke, dementia, Parkinson's disease, or multiple sclerosis (MS). Eat or drink things that irritate the bladder. These include alcohol, spicy food, and caffeine. Are overweight or obese. What are the signs or symptoms? Symptoms of this condition include: Sudden, strong urge to urinate. Leaking urine. Urinating 8 or more times a day. Waking up to urinate 2 or more times a night. How is this diagnosed? Your health care provider may suspect overactive bladder based on your symptoms. He or she will diagnose this condition by: A physical exam and medical history. Blood or urine tests. You might need bladder or urine tests to help determine what is causing your overactive bladder. You might also need to see a health care provider who specializes in urinary tract problems (urologist). How is this treated? Treatment for overactive bladder depends on the cause of your condition and whether it is mild or severe. You can also make lifestyle changes at home. Options include: Bladder training. This may include: ?Learning to control the urge to urinate by following a schedule that directs you to urinate at regular intervals (timed voiding). ?Doing Kegel exercises to strengthen your pelvic floor muscles, which support your bladder. Toning these muscles can help you control urination, even if your bladder muscles are overactive. Special devices. This may include: ?Biofeedback, which uses sensors to help you become aware of your body's signals. ?Electrical stimulation, which uses electrodes placed inside the body (implanted) or outside the body. These electrodes send gentle pulses of electricity to strengthen the nerves or muscles that control the bladder. ?Women may use a plastic device that fits into the vagina and supports the bladder (pessary). Medicines. ?Antibiotics to treat bladder infection. ?Antispasmodics to stop the bladder from releasing urine at the wrong time. ?Tricyclic antidepressants to relax bladder muscles. ?Injections of botulinum toxin type A directly into the bladder tissue to relax bladder muscles. Lifestyle changes. This may include: ?Weight loss. Talk to your health care provider about weight loss methods that would work best for you. ?Diet changes. This may include reducing how much alcohol and caffeine you consume, or drinking fluids at different times of the day. ?Not smoking. Do not use any products that contain nicotine or tobacco, such as cigarettes and e-cigarettes. If you need help quitting, ask your health care provider. Surgery. ?A device may be implanted to help manage the nerve signals that control urination. ?An electrode may be implanted to stimulate electrical signals in the bladder. ?A procedure may be done to change the shape of the bladder. This is done only in very severe cases. Follow these instructions at home: Lifestyle Make any diet or lifestyle changes that are recommended by your health care provider. These may include: ?Drinking less fluid or drinking fluids at different times of the day. ?Cutting down on caffeine or alcohol. ?Doing Kegel exercises. ?Losing weight if needed. ?Eating a healthy and balanced diet to prevent constipation. This may include: ?Eating foods that are high in fiber, such as fresh fruits and vegetables, whole grains, and beans. ?Limiting foods that are high in fat and processed sugars, such as fried and sweet foods. General instructions Take dixr-hyf-knvjgwb and prescription medicines only as told by your health care provider. If you were prescribed an antibiotic medicine, take it as told by your health care provider. Do notstop taking the antibiotic even if you start to feel better. Use any implants or pessary as told by your health care provider. If needed, wear pads to absorb urine leakage. Keep a journal or log to track how much and when you drink and when you feel the need to urinate. This will help your health care provider monitor your condition. Keep all follow-up visits as told by your health care provider. This is important. Contact a health care provider if: You have a fever. Your symptoms do not get better with treatment. Your pain and discomfort get worse. You have more frequent urges to urinate. Get help right away if: You are not able to control your bladder. Summary Overactive bladder refers to a condition in which a person has a sudden need to pass urine. Several conditions may lead to an overactive bladder. Treatment for overactive bladder depends on the cause and severity of your condition. Follow your health care provider's instructions about lifestyle changes, doing Kegel exercises, keeping a journal, and taking medicines. This information is not intended to replace advice given to you by your health care provider. Make sure you discuss any questions you have with your health care provider. Document Released: 05/28/2010 Document Revised: 11/22/2019 Document Reviewed: 08/17/2018 [employer] Patient Education 2020 [employer] Follow Up Care 04/15/2022 10:56:33 With:[facility] Address: [address] [place] [address] Business (1) When: Unknown Comments:our spares scheduler will be contacting you for follow-up [facility] 07-07-2022 Instructions* Patient Instructions* Rebekah Lomax RN - 02/18/2022 1:49 PM EDT We are here to assist you through your care at [facility] and [facility]! Your Care Team from today's visit included: Neurosurgeon- Dr. Toi Finley Nurse Practitioner- Yaneli Caro, ASBESTOS WIRE FINISHER-ADDRESSOGRAPH OPERATOR Primary Clinic Nurse- Rebekah Lomax MA, BSN, RN The Neurosurgery clinic and scheduling staff can be reached at [phone]. Please call if you develop new or worsening symptoms, also with any additional questions regarding your visit today or if you need to contact the doctor. You will speak with a spares scheduler, who will take a message and forward it to the clinical team. The primary nurse will return your call within 24 hours, assess your problem, consult with your medical team, and give direction on what should be done. We are not able to accommodate walk-in appointments. This is to provide the best possible care we can to all our patients. For any questions, comments, or concerns during after-hours (past 4:00pm M-F), weekends, and/or during a holiday please call [phone] and speak with the after-hours service. You will be connectedto the neurosurgery resident cardiothoracic surgeon. New or worsening neurological symptoms can include, but are not limited to: weakness, confusion, difficulty walking, vision/hearing/speech changes, seizures or extremity tremors, and persistent headaches. If it is an emergency you will need to go to your local ER. Ask them to fax your records to us so that we can update our team, fax number [phone]. If you experience seizures affecting the whole body, with or with out loss of consciousness, or stroke like symptoms please call 911 and get evaluated at local Emergency Room. The neurosurgery team typically does not refill medications. Please reach out to your primary care physician for any post-hospital or post- surgical medication refill requests. [facility] paperwork is available through your human resources department. Please allow 10-14 business days for completion of paperwork from our office. Documentation can be faxed to [phone]. Your feedback is important to our team. You may receive a survey in the mail following today's appointment. We would appreciate if you could take a few minutes to complete the survey and return it inthe envelope provided. Your response will be confidential and used to enhance patient care and address areas of opportunity. Thank you The Oncology Distress Screening, or Patient-Reported Outcomes Measurement Information System (PROMIS) questionnaire, is a validated tool used for recording self-reported measures of global, physical,mental and social health for adults in the general population and those living with a chronic condition. You will receive this questionnaire via [employer]. Please complete so your providers at [facility] can better help you! documented [facility] History of Present illness Narrative* Sarmad Finley MD - 02/18/2022 1:00 PM EDT Sarmad Almeida is a 71 y.o. male with history of thoracic spine abscess s/p surgery. He presents for f/u. Reports significant improvement in neurologic function, now able to stand and walk with support. I agree with the history of present illness, past medical history, family history, social history, medication list, allergies listed, and current complaints. I have personally reviewed all labs and radiographs as well as medical records and I confirm the findings noted above. I agree with the assessment and plan as noted above. The imaging reviewed today includes: Xray: No conspicuous change in the spinal column alignment from the supine to the upright position. On physical examination, he is awake, alert and in no acute distress. He is fully oriented. Speech is fluent. Extraocular movements are full. Face moves symmetrically. Tongue is midline. He has diffuse weakness in his legs 3-4-/5 At this time, I feel we should proceed with ongoing PT. The plan was developed mutually at the time of the clinic visit. The nurse practitioner/physician news assistant and I have spoken with the patient and provided written and verbal instructions for the patient. The above note has been reviewed and I agree with the assessment and plan. Sarmad Finley MD documented [facility] this [facility] Hospital Discharge instructions Patient Education 02/17/2022 10:58:15 Neurogenic Bladder Neurogenic Bladder Neurogenic bladder is a bladder control disorder. It is usually caused by problems with the nerves that control the bladder. Your brain sends signals through your spinal cord to the muscles in your bladder that start and stop urine flow. If you have neurogenic bladder, the nerves and muscles do notwork together the way they should. This condition may make the bladder overactive, meaning you have trouble holding urine. In other cases, it may make the bladder underactive, meaning you have trouble passing urine. What are the causes? This condition may be caused by any kind of nerve damage or condition that disrupts the signals from your brain to your bladder. Many things can cause these nerve problems, including: A disease that affects the nervous system, such as: ?Alzheimer disease. ?Cerebral palsy. ?Multiple sclerosis. ?Diabetes. ?Parkinson disease. Damage to your brain or spinal cord. This can come from: ?Trauma. ?Tumors. ?Infection. ?Surgery. ?Alcohol abuse. ?Stroke. ?A congenital disability that affects the spinal cord. What increases the risk? You are more likely to develop this condition if you have nerve damage or a nerve disorder. What are the signs or symptoms? Signs and symptoms of this condition include: Leaking or gushing urine (incontinence). A sudden, strong urge to pass urine (urgency). Frequent urination during the day and night. Being unable to empty your bladder completely (urinary retention). Frequent urinary tract infections. How is this diagnosed? This condition may be diagnosed based on: Your symptoms and medical history. A physical exam. Results of a bladder diary. You may be asked to keep a record of your bladder symptoms and the times that you urinate. You may also have tests, such as: A urine test to check for infection. A bladder scan after you urinate to see how much urine is left in your bladder. Tests to measure your urine flow and see how well the flow is controlled (urodynamic tests). A procedure that uses a small device with a camera to look through your urethra into your bladder (cystoscopy). A health care provider who specializes in the urinary tract (urologist) may do this test. Imaging tests of your brain or spine, such as MRI or CT. How is this treated? Treatment for this condition depends on the cause and the symptoms that you have. Work closely withyour health care provider to find the treatments that will improve your quality of life. Treatment options include: Learning ways to control when you urinate, such as: ?Urinating at scheduled times. ?Training yourself to delay urination. ?Doing exercises to strengthen the muscles that control urine flow (Kegel exercises). ?Avoiding foods or drinks that make your symptoms worse. Taking medicines to: ?Stimulate an underactive bladder. ?Relax an overactive bladder. ?Treat a urinary tract infection. Learning how to use a thin tube (catheter) to empty your bladder. A catheter is a hollow tube that you pass through your urethra. Procedures to stimulate the nerves that control your bladder. Surgery, if other treatments do not help. Follow these instructions at home: Lifestyle Keep a bladder diary to find out which foods, liquids, or activities make your symptoms worse. Use your bladder diary to schedule bathroom trips. If you are away from home, plan to be near a bathroom when your schedule says you will need one. Limit your drinking of beverages that stimulate urination. These include soda, coffee, and tea. After urinating, wait a few minutes and try again (double voiding). Make sure you urinate just before you leave the house and just before you go to bed. Kegel exercises Do Kegel exercises to strengthen the muscles that control the passing of urine. These muscles are the ones you use to try to hold urine when you need to urinate. To do Kegel exercises: 1.Squeeze your pelvic floor muscles tight, as if you are trying to stop the flow of urine. You should feel a tight lift in your rectal area. If you are female, you should also feel a tightness in your vaginal area. Keep your stomach, buttocks, and legs relaxed. 2.Hold the muscles tight for 5 10 seconds. 3.Relax your muscles for the same amount of time. 4.Repeat 10 times. Repeat this exercise 3 times a day or as many times as told by your health care provider. General instructions Take jmrq-ndf-wiuuxvb and prescription medicines only as told by your health care provider. Keep all follow-up visits as told by your health care provider. This is important. Contact a health care provider if: You are having a hard time controlling your symptoms. Your symptoms are getting worse. You have signs of a urinary tract infection. These may include: ?A burning feeling when you urinate. ?Chills. ?Fever. Get help right away if: You cannot pass urine. Summary Neurogenic bladder is a bladder control disorder caused by problems with the nerves that control the bladder. This condition may make the bladder overactive or underactive. This condition may be caused by any kind of nerve damage or condition that disrupts the signals from your brain to your bladder. Treatment depends on the cause of your neurogenic bladder and the symptoms that you have. Work closely with your health care provider to find the treatments that will improve your quality of life. This information is not intended to replace advice given to you by your health care provider. Make sure you discuss any questions you have with your health care provider. Document Released: 02/12/2008 Document Revised: 08/14/2018 Document Reviewed: 08/14/2018 [employer] Patient Education [employer]. Follow Up Care 01/13/2022 12:49:33 With:Angel CALDERON, KATRINA Martines, URO Address: When:4 weeks Comments:cath change [facility] 06-30-2022 Progress note Author Shira Johnson [facility] February 11, 2022 1:19pm Note Date/Time February 11, 2022 1:19 pm [facility] [address] [place] [address] Wound Center Provider Note Signed Patient: Sarmad Almeida MR#: [id number] : 1950 Acct:[id number] Age/Sex: 71 / M Copies to: MD Shira Stinson, ASBESTOS WIRE FINISHER~ HPI Date of Visit Date of Visit: Date of Service: 02/11/2022 Time of Service: 13:17 Narrative HPI: Madan is a 71 year old male presenting to [facility] wound care program for a follow up visit for evaluation and treatment of a sacral area ulcer that does appear to be d/t pressure, shear, and friction. His is with him today- she performs the dressings and denies the need for nursing. We spoke in great detail about not having the HOB greater than 30 degrees as this will lead to more injury and shearing from constantly sliding down in the bed. I wrote for a FERNANDO mattress or overlay- he already has a hospital bed from [facility] and so this was faxed there- they tell us that he now has the mattress. He is limited with his mobility d/t his paraplegia and this will contribute to pressure and shearing injury. Theraworx protect foam or wipes will be used as well as medical honey gel and bordered foam bandage and he will return within 2 weeks. His diabetic control will need to be tight in order to assist with healing and he is aware of this- he says his last A1C was 6.9 and his sugars usually run less than 120 but since August the sugars have been somewhat inconsistent. The area did improve since last visit even though the measurementsdo not reflect this. 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: Personal vehicle and Family Assistive Device Used Today: Wheelchair Lives with:: Spouse Appetite Description: Within Normal Limits Who helps w/ dressing change?: Family Why Do You Need Help?: Can't Reach Ulcer, Limited mobility and Taxing effort to leave home Smoking Status: Never smoker PMFSH Vaccinated for COVID-19?: Yes Medical History (Updated 02/11/22 @ 13:18 by Shira Johnson APRN) Depression Diabetes mellitus, type 2 Gout Hypertension Hypothyroidism Paraplegia, incomplete Wound, open Family History (Updated 12/17/21 @ 09:53 by Maye Terrazas RN) Mother Hypertension Father Diabetes mellitus, type 2 Social History Smoking Status: Never smoker Grafts History of Graft History of Graft?: No Exam Physical Exam Vital Signs: Temp Pulse Resp BP 97.7 F 80 20 143/84 H 02/11/22 13:11 02/11/22 13:11 02/11/22 13:11 02/11/22 13:11 Const General: cooperative, comfortable and no acute distress Nutritional Appearance: average body habitus Orientation: alert, awake and oriented x3 Lower/Upper Extremity Exam Vascular Exam-Pulses Right Brachial: Pulse Assessment Method: NIBP Objective Meds/Allergies Home Medications atorvastatin 20 mg tablet 20 mg PO DAILY 12/17/21 [History Confirmed 01/21/22] cholecalciferol (vitamin D3) 50 mcg (2,000 unit) tablet (Vitamin D3) 50 mcg PO DAILY 12/17/21 [History Confirmed 01/21/22] docusate sodium 100 mg capsule (Colace) 100 mg PO BID 12/17/21 [History Confirmed 01/21/22] enoxaparin 40 mg/0.4 mL subcutaneous syringe 40 mg SUBCUT DAILY 12/17/21 [History Confirmed 01/21/22] levothyroxine 100 mcg tablet 100 mcg PO DAILY 12/17/21 [History Confirmed 01/21/22] lisinopril 10 mg tablet 10 mg PO DAILY 12/17/21 [History Confirmed 01/21/22] magnesium oxide 400 mg PO BID 12/17/21 [History Confirmed 01/21/22] metformin 1,000 mg tablet 1,000 mg PO BID 12/17/21 [History Confirmed 01/21/22] sitagliptin 100 mg tablet (Januvia) 100 mg PO DAILY 12/17/21 [History Confirmed 01/21/22] tamsulosin 0.4 mg capsule 0.4 mg PO BID 12/17/21 [History Confirmed 01/21/22] venlafaxine 75 mg capsule,extended release 24 hr 75 mg PO TID 12/17/21 [History Confirmed 01/21/22] Allergies Penicillins Allergy (Verified 12/17/21 09:57) Vomiting Wound/Ulcer Sacrum: Type: Pressure/Injury Ulcer Pressure Ulcer/Injury Staging: Stage 3 Bed Appearance: Epithelial Tissue or Bridge, [place] and Yellow Length (cm): 0 Width (cm): 0 Depth (cm): 0 CM Sq: 0.000 Surrounding Tissue Temp: Warm Drainage Amount: None Drainage Odor: No Odor Results Height: 5 ft 8 in Weight: 83.007 kg Body Mass Index: 27.8 Assessment/Plan Assessment/Plan (1) Pressure ulcer of sacral region, stage 3: Code(s): L89.153 - Pressure ulcer of sacral region, stage 3 Status: Resolved (2) Paraplegia, incomplete: Code(s): G82.22 - Paraplegia, incomplete Status: Chronic (3) At high risk for skin breakdown: Code(s): Z91.89 - Other specified personal risk factors, not elsewhere classified Status: Chronic (4) Diabetes mellitus, type 2: Code(s): E11.9 - Type 2 diabetes mellitus without complications Status: Chronic (5) Limited mobility: Code(s): Z74.09 - Other reduced mobility Status: Chronic (6) Mcgrath catheter in place: Code(s): Z97.8 - Presence of other specified devices Status: Chronic Time spent with patient Time Spent With Patient (min): 10 Dictated By: Shira Johnson APRN DD/ 16 Signed By: <Electronically signed by MAR Johnson> 02/11/22 [address] [facility] Work Phone: [phone]) 174-851606-09-2022 Progress note Author Shira Johnson [facility] January 21, 2022 11:19am Note Date/Time January 21, 2022 11:19 am [facility] [address] [place] [address] Wound Center Provider Note Signed Patient: Sarmad Almeida MR#: [id number] : 1950 Acct:[id number] Age/Sex: 71 / M Copies to: MD Shira Stinson APRN~ HPI Date of Visit Date of Visit: Date of Service: 01/21/2022 Time of Service: 11:17 Narrative HPI: Madan is a 71 year old male presenting to [facility] wound care program for a follow up visit for evaluation and treatment of a sacral area ulcer that does appear to be d/t pressure, shear, and friction. His is with him today- she performs the dressings and denies the need for nursing. We spoke in great detail about not having the HOB greater than 30 degrees as this will lead to more injury and shearing from constantly sliding down in the bed. I wrote for a FERNANDO mattress or overlay- he already has a hospital bed from [facility] and so this was faxed there- they tell us that he now has the mattress. He is limited with his mobility d/t his paraplegia and this will contribute to pressure and shearing injury. Theraworx protect foam or wipes will be used as well as medical honey gel and bordered foam bandage and he will return within 2 weeks. His diabetic control will need to be tight in order to assist with healing and he is aware of this- he says his last A1C was 6.9 and his sugars usually run less than 120 but since August the sugars have been somewhat inconsistent. The area did improve since last visit even though the measurementsdo not reflect this. 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: Personal vehicle and Family Assistive Device Used Today: Wheelchair Lives with:: Spouse Appetite Description: Within Normal Limits Who helps w/ dressing change?: Family Why Do You Need Help?: Can't Reach Ulcer, Limited mobility and Taxing effort to leave home Smoking Status: Never smoker PMFSH Vaccinated for COVID-19?: Yes Medical History (Updated 12/17/21 @ 10:03 by Shira Johnson APRN) Depression Diabetes mellitus, type 2 Gout Hypertension Hypothyroidism Paraplegia, incomplete Wound, open Family History (Updated 12/17/21 @ 09:53 by Maye Terrazas RN) Mother Hypertension Father Diabetes mellitus, type 2 Social History Smoking Status: Never smoker Grafts History of Graft History of Graft?: No Exam Physical Exam Vital Signs: Temp Pulse Resp BP 97.3 F L 105 H 18 144/77 H 01/21/22 11:06 01/21/22 11:06 01/21/22 11:01/21/22 11:06 Const General: cooperative, comfortable and no acute distress Nutritional Appearance: average body habitus Orientation: alert, awake and oriented x3 Lower/Upper Extremity Exam Vascular Exam-Pulses Right Brachial: Pulse Assessment Method: NIBP Objective Meds/Allergies Home Medications atorvastatin 20 mg tablet 20 mg PO DAILY 12/17/21 [History Confirmed 01/21/22] cholecalciferol (vitamin D3) 50 mcg (2,000 unit) tablet (Vitamin D3) 50 mcg PO DAILY 12/17/21 [History Confirmed 01/21/22] docusate sodium 100 mg capsule (Colace) 100 mg PO BID 12/17/21 [History Confirmed 01/21/22] enoxaparin 40 mg/0.4 mL subcutaneous syringe 40 mg SUBCUT DAILY 12/17/21 [History Confirmed 01/21/22] levothyroxine 100 mcg tablet 100 mcg PO DAILY 12/17/21 [History Confirmed 01/21/22] lisinopril 10 mg tablet 10 mg PO DAILY 12/17/21 [History Confirmed 01/21/22] magnesium oxide 400 mg PO BID 12/17/21 [History Confirmed 01/21/22] metformin 1,000 mg tablet 1,000 mg PO BID 12/17/21 [History Confirmed 01/21/22] sitagliptin 100 mg tablet (Januvia) 100 mg PO DAILY 12/17/21 [History Confirmed 01/21/22] tamsulosin 0.4 mg capsule 0.4 mg PO BID 12/17/21 [History Confirmed 01/21/22] venlafaxine 75 mg capsule,extended release 24 hr 75 mg PO TID 12/17/21 [History Confirmed 01/21/22] Allergies Penicillins Allergy (Verified 12/17/21 09:57) Vomiting Wound/Ulcer Sacrum: Type: Pressure/Injury Ulcer Pressure Ulcer/Injury Staging: Stage 3 Bed Appearance: Epithelial Tissue or Bridge, [place] and Yellow Percent of Wound Bed Granulated/Red: 80 Percent of Devitalized: 20 Length (cm): 7.0 Width (cm): 4.0 Depth (cm): 0.1 CM Sq: 28.000 Surrounding Tissue Appearance: Hyperpigmented, Peeling and Dryness Surrounding Tissue Temp: Warm Drainage Amount: Scant Drainage Description: Sanguineous Drainage Odor: No Odor Results Height: 5 ft 8 in Weight: 83.007 kg Body Mass Index: 27.8 Assessment/Plan Assessment/Plan (1) Pressure ulcer of sacral region, stage 3: Code(s): L89.153 - Pressure ulcer of sacral region, stage 3 Status: Chronic (2) Paraplegia, incomplete: Code(s): G82.22 - Paraplegia, incomplete Status: Chronic (3) At high risk for skin breakdown: Code(s): Z91.89 - Other specified personal risk factors, not elsewhere classified Status: Chronic (4) Diabetes mellitus, type 2: Code(s): E11.9 - Type 2 diabetes mellitus without complications Status: Chronic (5) Limited mobility: Code(s): Z74.09 - Other reduced mobility Status: Chronic (6) Mcgrath catheter in place: Code(s): Z97.8 - Presence of other specified devices Status: Chronic Time spent with patient Time Spent With Patient (min): 10 Dictated By: Shira Johnson APRN DD/ 16 Signed By: <Electronically signed by MAR Johnson> 01/21/22 [facility] [facility] Work Phone: [phone]) 614-108205-26-2022 Progress note Author Shira Johnson [facility] January 07, 2022 11:22am Note Date/Time January 07, 2022 11:22 am [facility] [address] [place] [address] Wound Center Provider Note Signed Patient: Sarmad Almeida MR#: [id number] : 1950 Acct:[id number] Age/Sex: 71 / M Copies to: MD Shira Stinson APRN~ HPI Date of Visit Date of Visit: Date of Service: 01/07/2022 Time of Service: 11:19 Narrative HPI: Madan is a 71 year old male presenting to [facility] wound care program for a follow up visit for evaluation and treatment of a sacral area ulcer that does appear to be d/t pressure, shear, and friction. His is with him today- she performs the dressings and denies the need for nursing. We spoke in great detail about not having the HOB greater than 30 degrees as this will lead to more injury and shearing from constantly sliding down in the bed. I wrote for a FERNANDO mattress or overlay- he already has a hospital bed from [facility] and so this was faxed there- they tell us that he now has the mattress. He is limited with his mobility d/t his paraplegia and this will contribute to pressure and shearing injury. Theraworx protect foam or wipes will be used as well as medical honey gel and bordered foam bandage and he will return within 2 weeks. His diabetic control will need to be tight in order to assist with healing and he is aware of this- he says his last A1C was 6.9 and his sugars usually run less than 120 but since August the sugars have been somewhat inconsistent. The area did improve since last visit. 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: Personal vehicle and Family Assistive Device Used Today: Wheelchair Lives with:: Spouse Appetite Description: Within Normal Limits Who helps w/ dressing change?: Family Why Do You Need Help?: Can't Reach Ulcer, Limited mobility and Taxing effort to leave home Smoking Status: Never smoker PMFSH Vaccinated for COVID-19?: Yes Medical History (Updated 12/17/21 @ 10:03 by Shira Johnson APRN) Depression Diabetes mellitus, type 2 Gout Hypertension Hypothyroidism Paraplegia, incomplete Wound, open Family History (Updated 12/17/21 @ 09:53 by Maye Terrazas RN) Mother Hypertension Father Diabetes mellitus, type 2 Social History Smoking Status: Never smoker Grafts History of Graft History of Graft?: No Exam Physical Exam Vital Signs: Temp Pulse Resp BP 98.1 F 80 18 112/76 01/07/22 11:07 01/07/22 11:07 01/07/22 11:07 01/07/22 11:07 Const General: cooperative, comfortable and no acute distress Nutritional Appearance: average body habitus Orientation: alert, awake and oriented x3 Lower/Upper Extremity Exam Vascular Exam-Pulses Right Brachial: Pulse Assessment Method: NIBP Objective Meds/Allergies Home Medications atorvastatin 20 mg tablet 20 mg PO DAILY 12/17/21 [History Confirmed 12/17/21] cholecalciferol (vitamin D3) 50 mcg (2,000 unit) tablet (Vitamin D3) 50 mcg PO DAILY 12/17/21 [History Confirmed 12/17/21] docusate sodium 100 mg capsule (Colace) 100 mg PO BID 12/17/21 [History Confirmed 12/17/21] enoxaparin 40 mg/0.4 mL subcutaneous syringe 40 mg SUBCUT DAILY 12/17/21 [History Confirmed 12/17/21] levothyroxine 100 mcg tablet 100 mcg PO DAILY 12/17/21 [History Confirmed 12/17/21] lisinopril 10 mg tablet 10 mg PO DAILY 12/17/21 [History Confirmed 12/17/21] magnesium oxide 400 mg PO BID 12/17/21 [History Confirmed 12/17/21] metformin 1,000 mg tablet 1,000 mg PO BID 12/17/21 [History Confirmed 12/17/21] sitagliptin 100 mg tablet (Januvia) 100 mg PO DAILY 12/17/21 [History Confirmed 12/17/21] tamsulosin 0.4 mg capsule 0.4 mg PO BID 12/17/21 [History Confirmed 12/17/21] venlafaxine 75 mg capsule,extended release 24 hr 75 mg PO TID 12/17/21 [History Confirmed 12/17/21] Allergies Penicillins Allergy (Verified 12/17/21 09:57) Vomiting Wound/Ulcer Sacrum: Type: Pressure/Injury Ulcer Pressure Ulcer/Injury Staging: Stage 3 Bed Appearance: Epithelial Tissue or Bridge, [place] and Yellow Percent of Wound Bed Granulated/Red: 20 Percent of Devitalized: 80 Length (cm): 5.5 Width (cm): 6 Depth (cm): 0.1 CM Sq: 33.000 Surrounding Tissue Appearance: Hyperpigmented, Peeling and Dryness Surrounding Tissue Temp: Warm Drainage Amount: Scant Drainage Description: Sanguineous Drainage Odor: No Odor Procedures Time Out: 2 Patient Identifiers, Correct Patient, Correct Side/Site, Correct Procedure and Safety Issues Reviewed Procedure: The sacral ulcer was anesthetized with topical 2% lidocaine gel. A curette was used to perform debridement for the removal of 6 cm? of devitalized tissue consisting of skin and slough. Debridement was down to healthy bleeding tissue. Estimated blood loss was minimal. Hemostasis was achieved by applying pressure. The sacral ulcer now appears 15% more pink and red and the size remains the same. The patient tolerated the procedure well and complained of nopain. Results Height: 5 ft 8 in Weight: 83.007 kg Body Mass Index: 27.8 Assessment/Plan Assessment/Plan (1) Pressure ulcer of sacral region, stage 3: Code(s): L89.153 - Pressure ulcer of sacral region, stage 3 Status: Chronic (2) Paraplegia, incomplete: Code(s): G82.22 - Paraplegia, incomplete Status: Chronic (3) At high risk for skin breakdown: Code(s): Z91.89 - Other specified personal risk factors, not elsewhere classified Status: Chronic (4) Diabetes mellitus, type 2: Code(s): E11.9 - Type 2 diabetes mellitus without complications Status: Chronic (5) Limited mobility: Code(s): Z74.09 - Other reduced mobility Status: Chronic (6) Mcgrath catheter in place: Code(s): Z97.8 - Presence of other specified devices Status: Chronic Time spent with patient Time Spent With Patient (min): 15 Dictated By: Shira Johnson APRN DD/ 1119 Signed By: <Electronically signed by MAR Johnson> 01/07/22 [address] [facility] Work Phone: 1([phone]) 600-797205-05-2022 Evaluation + Plan note Future Scheduled Tests Laboratory* [id number]-2-Bquileupkfp 12/17/21 * Ceruloplasmin 12/17/21 * Antimitochondrial Antibody, Quantitative 12/17/21 * Smooth Muscle Antibody Screen 12/17/21 * WANDA w/Reflex if POS 12/17/21 * TIBC Calculated 12/17/21 * Hep Be Ab 12/17/21 * HCV Antibody RFX to Quant PCR 02/02/22 * Hep Be Ag 12/17/21 * CBC w/ Indices 12/17/21 * Comprehensive Metabolic Panel 12/17/21 * PT 12/17/21 * Protein Electrophoresis 12/17/21 * Transferrin 12/17/21 [facility] 05-05-2022 Progress note Author Shira Johnson [facility] December 17, 2021 10:12am Note Date/Time December 17, 2021 10:12a m [facility] [address] [place] [address] Wound Center Provider Note Signed Patient: Sarmad Almeida MR#: [id number] : 1950 Acct:[id number] Age/Sex: 71 / M Copies to: MD Shira Stinson APRN~ HPI Date of Visit Date of Visit: Date of Service: 12/17/2021 Time of Service: 09:58 Narrative HPI: Madan is a 71 year old male presenting to [facility] wound care program for an initial visit for evaluation and treatment of a sacral area ulcer that does appear to be d/t pressure, shear, and friction. His is with him today- she performs the dressings and denies the need for nursing. We spoke in great detail about not having the HOB greater than 30 degrees as this will lead to more injury and shearing from constantly sliding down in the bed. I wrote for a FERNANDO mattress or overlay- he already has a hospital bed from [facility] and so this was faxed there. He is limited with his mobility d/t his paraplegia and this will contribute to pressure and shearing injury. Theraworx protect foam or wipes will be used as well as medical honey gel and he will return within 2 weeks. His diabetic control will need to be tight in order to assist with healing and he is aware of this- he says his last A1C was 6.9 and his sugars usually run less than 120 but since August the sugars have been somewhat inconsistent. 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: Personal vehicle and Family Assistive Device Used Today: Wheelchair Lives with:: Spouse Appetite Description: Within Normal Limits Who helps w/ dressing change?: Family Why Do You Need Help?: Can't Reach Ulcer, Limited mobility and Taxing effort to leave home Smoking Status: Never smoker PMFSH Vaccinated for COVID-19?: Yes Medical History (Updated 12/17/21 @ 10:03 by Shira Johnson APRN) Depression Diabetes mellitus, type 2 Gout Hypertension Hypothyroidism Paraplegia, incomplete Wound, open Family History (Updated 12/17/21 @ 09:53 by Maye Terrazas RN) Mother Hypertension Father Diabetes mellitus, type 2 Social History Smoking Status: Never smoker Grafts History of Graft History of Graft?: No Exam Physical Exam Vital Signs: Temp Pulse Resp BP 97.5 F L 87 18 132/78 12/17/21 09:31 12/17/21 09:31 12/17/21 09:31 12/17/21 09:31 Const General: cooperative, comfortable and no acute distress Nutritional Appearance: average body habitus Orientation: alert, awake and oriented x3 Lower/Upper Extremity Exam Vascular Exam-Pulses Right Brachial: Pulse Assessment Method: NIBP Objective Meds/Allergies Home Medications metformin 1,000 mg tablet 1,000 mg PO BID 12/17/21 [History Confirmed 12/17/21] tamsulosin 0.4 mg capsule 0.4 mg PO BID 12/17/21 [History Confirmed 12/17/21] Allergies Penicillins Allergy (Verified 12/17/21 09:57) Vomiting Wound/Ulcer Sacrum: Type: Pressure/Injury Ulcer Pressure Ulcer/Injury Staging: Stage 3 Bed Appearance: Epithelial Tissue or Bridge, [place] and Yellow Percent of Wound Bed Granulated/Red: 20 Percent of Devitalized: 80 Length (cm): 6.5 Width (cm): 7.5 Depth (cm): 0.2 CM Sq: 48.750 Surrounding Tissue Appearance: Hyperpigmented, Peeling and Dryness Surrounding Tissue Temp: Warm Drainage Amount: Scant Drainage Description: Sanguineous Drainage Odor: No Odor Results Height: 5 ft 8 in Weight: 83.007 kg Body Mass Index: 27.8 Assessment/Plan Assessment/Plan (1) Pressure ulcer of sacral region, stage 3: Code(s): L89.153 - Pressure ulcer of sacral region, stage 3 Status: Chronic (2) Paraplegia, incomplete: Code(s): G82.22 - Paraplegia, incomplete Status: Chronic (3) At high risk for skin breakdown: Code(s): Z91.89 - Other specified personal risk factors, not elsewhere classified Status: Chronic (4) Diabetes mellitus, type 2: Code(s): E11.9 - Type 2 diabetes mellitus without complications Status: Chronic (5) Limited mobility: Code(s): Z74.09 - Other reduced mobility Status: Chronic (6) Mcgrath catheter in place: Code(s): Z97.8 - Presence of other specified devices Status: Chronic Time spent with patient Time Spent With Patient (min): 30 Dictated By: Shira Johnson APRN DD/ 7 Signed By: <Electronically signed by MAR Johnson> 12/17/[address] [facility] Work Phone: 1([phone]) 347-942503-29-2022 Hospital Discharge instructions Follow Up Care 11/10/2021 11:00:13 With:CONSTANTINO CALDERON, ESAU Encarnacion, [facility] Address: [facility] [address] [place] [address] [facility] [place] [address]- When:Within 2 Month(s) [facility] Evaluation + Plan note Future Appointments Appointment Date:12/14/2021 12:45:00 PM Scheduled Provider:Tejas ROSARIO MD Location:[facility] Appointment Type:URO Office Visit [facility] Evaluation + Plan note Future Appointments Appointment Date:12/17/2021 02:00:00 PM Scheduled Provider:Alysha MEEKS MD Location:[facility] Appointment Type:BADH New Patient Appointment Date:12/21/2021 09:00:00 AM Scheduled Provider:Tejas ROSARIO MD Location:[facility] Appointment Type:URO Office Visit [facility] evaluation + Plan note Future Appointments Appointment Date:01/14/2022 09:35:00 AM Scheduled Provider: Location:[facility] Appointment Type:Surgery FT Future Scheduled Tests Laboratory* HCV Antibody reflex to LYNNETTE 12/17/21 * [id number]-6-Tqlifgbjosi 12/17/21 * Ceruloplasmin 12/17/21 * Antimitochondrial Antibody, Quantitative 12/17/21 * Smooth Muscle Antibody Screen 12/17/21 * WANDA w/Reflex if POS 12/17/21 * TIBC Calculated 12/17/21 * Hep Be Ab 12/17/21 * Hep Be Ag 12/17/21 * CBC w/ Indices 12/17/21 * Comprehensive Metabolic Panel 12/17/21 * PT 12/17/21 * Protein Electrophoresis 12/17/21 * Transferrin 12/17/21 [facility] Evaluation + Plan note Future Appointments Appointment Date:02/17/2022 09:30:00 AM Scheduled Provider:Dina Ortiz MD Location:[facility] Appointment Type:URO Office Visit Future Scheduled Tests Laboratory* HCV Antibody reflex to LYNNETTE 12/17/21 * Zsedu-[id number] 12/17/21 * Ceruloplasmin 12/17/21 * Antimitochondrial Antibody, Quantitative 12/17/21 * Smooth Muscle Antibody Screen 12/17/21 * WANDA w/Reflex if POS 12/17/21 * TIBC Calculated 12/17/21 * Hep Be Ab 12/17/21 * Hep Be Ag 12/17/21 * CBC w/ Indices 12/17/21 * Comprehensive Metabolic Panel 12/17/21 * PT 12/17/21 * Protein Electrophoresis 12/17/21 * Transferrin 12/17/21 [facility] evaluation + Plan note Future Appointments Appointment Date:02/17/2022 09:30:00 AM Scheduled Provider:Dina Ortiz MD Location:[facility] Appointment Type:URO Office Visit Diagnostic Tests Pending * Urine Culture 01/13/22 Future Scheduled Tests Laboratory* HCV Antibody reflex to LYNNETTE 12/17/21 * [id number]-8-Stwdkyazguk 12/17/21 * Ceruloplasmin 12/17/21 * Antimitochondrial Antibody, Quantitative 12/17/21 * Smooth Muscle Antibody Screen 12/17/21 * WANDA w/Reflex if POS 12/17/21 * TIBC Calculated 12/17/21 * Hep Be Ab 12/17/21 * Hep Be Ag 12/17/21 * CBC w/ Indices 12/17/21 * Comprehensive Metabolic Panel 12/17/21 * PT 12/17/21 * Protein Electrophoresis 12/17/21 * [facility] Appointment Date:03/19/2022 11:00:00 AM Scheduled Provider: Location:[facility] Appointment Type:URO Nurse Visit Future Scheduled Tests Laboratory* Wyagg-3-Igwptpzoqeo 12/17/21 * Ceruloplasmin 12/17/21 * Antimitochondrial Antibody, Quantitative 12/17/21 * Smooth Muscle Antibody Screen 12/17/21 * WANDA w/Reflex if POS 12/17/21 * TIBC Calculated 12/17/21 * Hep Be Ab 12/17/21 * HCV Antibody RFX to Quant PCR 02/02/22 * Hep Be Ag 12/17/21 * CBC w/ Indices 12/17/21 * Comprehensive Metabolic Panel 12/17/21 * PT 12/17/21 * Protein Electrophoresis 12/17/21 * Transferrin 12/17/21 [facility] evaluation + Plan note Future Appointments Appointment Date:06/02/2022 03:30:00 PM Scheduled Provider:YARA NAVARRO PA-C Location:[facility] Appointment Type:URO Office Visit Appointment Date:07/05/2022 03:30:00 PM Scheduled Provider: Location:[facility] Appointment Type:URO Nurse Visit Future Scheduled Tests Laboratory* Krsgb-5-Reeltehjwzv 12/17/21 * Ceruloplasmin 12/17/21 * Antimitochondrial Antibody, Quantitative 12/17/21 * Smooth Muscle Antibody Screen 12/17/21 * WANDA w/Reflex if POS 12/17/21 * TIBC Calculated 12/17/21 * Hep Be Ab 12/17/21 * HCV Antibody RFX to Quant PCR 02/02/22 * Hep Be Ag 12/17/21 * CBC w/ Indices 12/17/21 * Comprehensive Metabolic Panel 12/17/21 * PT 12/17/21 * Protein Electrophoresis 12/17/21 * Transferrin 12/17/21 [facility] evaluation + Plan note Future Appointments Appointment Date:07/05/2022 03:30:00 PM Scheduled Provider: Location:[facility] Appointment Type:URO Nurse Visit Future Scheduled Tests Laboratory* Ewwsm-0-Brausilrppl 12/17/21 * Ceruloplasmin 12/17/21 * Antimitochondrial Antibody, Quantitative 12/17/21 * Smooth Muscle Antibody Screen 12/17/21 * WANDA w/Reflex if POS 12/17/21 * TIBC Calculated 12/17/21 * Hep Be Ab 12/17/21 * HCV Antibody RFX to Quant PCR 02/02/22 * Hep Be Ag 12/17/21 * CBC w/ Indices 12/17/21 * Comprehensive Metabolic Panel 12/17/21 * PT 12/17/21 * Protein Electrophoresis 12/17/21 * Transferrin 12/17/21 [facility] evaluation + Plan note Future Appointments Appointment Date:07/05/2022 03:30:00 PM Scheduled Provider: Location:[facility] Appointment Type:URO Nurse Visit Diagnostic Tests Pending * Urine Culture 06/24/22 Future Scheduled Tests Laboratory* Bfonk-7-Xutxlkhbdbw 12/17/21 * Ceruloplasmin 12/17/21 * Antimitochondrial Antibody, Quantitative 12/17/21 * Smooth Muscle Antibody Screen 12/17/21 * WANDA w/Reflex if POS 12/17/21 * TIBC Calculated 12/17/21 * Hep Be Ab 12/17/21 * HCV Antibody RFX to Quant PCR 02/02/22 * Hep Be Ag 12/17/21 * CBC w/ Indices 12/17/21 * Comprehensive Metabolic Panel 12/17/21 * PT 12/17/21 * Protein Electrophoresis 12/17/21 * Transferrin 12/17/21 [facility] Evaluation + Plan note Future Appointments Appointment Date:07/28/2022 10:30:00 AM Scheduled Provider:Dina Ortiz MD Location:[facility] Appointment Type:URO Office Visit Future Scheduled Tests Laboratory* Pbiob-1-Zkpwkyvmaak 12/17/21 * Ceruloplasmin 12/17/21 * Antimitochondrial Antibody, Quantitative 12/17/21 * Smooth Muscle Antibody Screen 12/17/21 * WANDA w/Reflex if POS 12/17/21 * TIBC Calculated 12/17/21 * Hep Be Ab 12/17/21 * HCV Antibody RFX to Quant PCR 02/02/22 * Hep Be Ag 12/17/21 * CBC w/ Indices 12/17/21 * Comprehensive Metabolic Panel 12/17/21 * PT 12/17/21 * Protein Electrophoresis 12/17/21 * Transferrin 12/17/21 [facility] evaluation + Plan note Future Appointments Appointment Date:09/29/2022 09:45:00 AM Scheduled Provider:Dina Ortiz MD Location:[facility] Appointment Type:URO Office Visit Future Scheduled Tests Laboratory* Xrwqu-2-Giujvkutzbt 12/17/21 * Ceruloplasmin 12/17/21 * Antimitochondrial Antibody, Quantitative 12/17/21 * Smooth Muscle Antibody Screen 12/17/21 * WANDA w/Reflex if POS 12/17/21 * TIBC Calculated 12/17/21 * Hep Be Ab 12/17/21 * HCV Antibody RFX to Quant PCR 02/02/22 * Hep Be Ag 12/17/21 * CBC w/ Indices 12/17/21 * Comprehensive Metabolic Panel 12/17/21 * PT 12/17/21 * Protein Electrophoresis 12/17/21 * Transferrin 12/17/21 [facility] evaluation + Plan note Future Appointments Appointment Date:05/26/2023 01:15:00 PM Scheduled Provider:Dina Ortiz MD Location:[facility] Appointment Type:URO Office Visit [facility] Evaluation + Plan note Future Appointments Appointment Date:09/08/2023 02:00:00 PM Scheduled Provider:Dina Ortiz MD Location:[facility] Appointment Type:URO Office Visit [facility] evaluation + Plan note Future Appointments Appointment Date:08/17/2024 10:00:00 AM Scheduled Provider:Dina Ortiz MD Location:[facility] Appointment Type:URO Office Visit [facility] evaluation note* Diagnosis Myelopathy, spondylogenic, cervical Cervical spondylosis with myelopathy [facility]* Diagnosis 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 Work Phone: Evaluation note* Diagnosis S/P lumbar fusion Arthrodesis status [facility] Diagnosis S/P laminectomy Other postprocedural status [facility] Diagnosis Paraplegia (HCC)- Primary Paraplegia Neurogenic bladder Neurogenic bladder, NOS [facility] S/P lumbar fusion- Primary Arthrodesis status S/P laminectomy Other postprocedural status [facility] Diagnosis Retention of urine- Primary Retention of urine, unspecified Urinary urgency Urgency of urination documented in this encounter [facility] note* Diagnosis Urinary retention- Primary Retention of urine, unspecified documented in this encounter [facility] note* Diagnosis Screening for genitourinary condition Screening for other and unspecified genitourinary condition documented in this encounter [facility] note* Diagnosis Urge incontinence- Primary Urge incontinence [facility] Diagnosis Pre-op evaluation- Primary Preoperative examination, unspecified Hypertension, unspecified type Other hyperlipidemia Acquired hypothyroidism Unspecified hypothyroidism Other depression ELLEN on CPAP Obstructive sleep apnea (adult) (pediatric) Retention of urine Retention of urine, unspecified Urge incontinence * Assessment & Plan Note - Gabbie Nunes APRN.CNP - 01/23/2024 4:07 PM EDT Associated Problem(s): Retention of urine Assessment: self straight caths 6-7 times per day * Assessment & Plan Note - Gabbie Nunes APRN.CNP - 01/23/2024 4:07 PM EDT Associated Problem(s): ELLEN on CPAP Assessment: ELLEN uses CPAP 2 of past 7 nights * Assessment & Plan Note - Gabbie Nunes APRN.CNP - 01/23/2024 4:07 PM EDT Associated Problem(s): Depression Assessment: controlled with meds * Assessment & Plan Note - Gabbie Nunes APRN.CNP - 01/23/2024 4:06 PM EDT Associated Problem(s): Acquired hypothyroidism Assessment: controlled with synthroid Await labs to be faxed from dr Khan office * Assessment & Plan Note - Gabbie Nunes APRN.CNP - 01/23/2024 4:05 PM EDT Associated Problem(s): HLD (hyperlipidemia) Assessment: controlled with meds Awaiting labs to be faxed * Assessment & Plan Note - Gabbie Nunes APRN.CNP - 01/23/2024 4:04 PM EDT Associated Problem(s): HTN (hypertension) Assessment: controlled with meds [facility] Diagnosis Urge incontinence- Primary Urge incontinence documented in this encounter [facility] note* Diagnosis Pre-op examination- Primary Preoperative examination, unspecified Hypertension, unspecified type Hyperlipidemia, unspecified hyperlipidemia type ELLEN on CPAP Obstructive sleep apnea (adult) (pediatric) Gastroesophageal reflux disease without esophagitis Esophageal reflux Type 2 diabetes mellitus without complication, unspecified whether usp insulin use (HCC) Acquired hypothyroidism Unspecified hypothyroidism Anemia, unspecified type Gout, unspecified cause, unspecified chronicity, unspecified site Depression, unspecified depression type Retention of urine Retention of urine, unspecified Gait difficulty Abnormality of gait Urge incontinence * Assessment & Plan Note - Kimmy Carpenter APRN.CNP - 02/21/2024 1:48 PM EDT Associated Problem(s): Gait difficulty Assessment: States a fall on 07/26/21 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 Fall risk. * Assessment & Plan Note - Kimmy Carpenter APRN.CNP - 02/21/2024 1:46 PM EDT Associated Problem(s): Retention of urine Assessment: straight caths multiple times daily. InterStim Peripheral Nerve Stimulation Stage 1 occurred on 02/14/24. * Assessment & Plan Note - Kimmy Carpenter APRN.CNP - 02/21/2024 1:45 PM EDT Associated Problem(s): Depression Assessment: stable with current medication regimen * Assessment & Plan Note - Kimmy Carpenter APRN.CNP - 02/21/2024 1:45 PM EDT Associated Problem(s): Gout Assessment: remote history of gout, denies any recent exacerbation * Assessment & Plan Note - Kimmy Carpenter APRN.CNP - 02/21/2024 1:45 PM EDT Associated Problem(s): Anemia Assessment: Stable. Denies bleeding. CBC today No results found for: HB * Assessment & Plan Note - Kimmy Carpenter APRN.CNP - 02/21/2024 1:44 PM EDT Associated Problem(s): Acquired hypothyroidism Assessment: stable with current medication regimen * Assessment & Plan Note - Kimmy Carpenter APRN.CNP - 02/21/2024 1:44 PM EDT Associated Problem(s): Type 2 diabetes mellitus without complication (HCC) Assessment: Currently taking metformin, januvia No results found for: HBA1C * Assessment & Plan Note - Kimmy Carpenter APRN.CNP - 02/21/2024 1:44 PM EDT Associated Problem(s): GERD (gastroesophageal reflux disease) Assessment: Managed and stable with current medication. Denies difficulty swallowing or any bleeding. * Assessment & Plan Note - Kimmy Carpenter APRN.CNP - 02/21/2024 1:43 PM EDT Associated Problem(s): ELLEN on CPAP Assessment: CPAP compliant * Assessment & Plan Note - Kimmy Carpenter APRN.CNP - 02/21/2024 1:43 PM EDT Associated Problem(s): HLD (hyperlipidemia) Assessment: stable with current medication regimen * Assessment & Plan Note - Kimmy Carpenter APRN.CNP - 02/21/2024 1:43 PM EDT Associated Problem(s): HTN (hypertension) Assessment: stable and compliant with current medications Last 5 Encounter BP Readings: Date: BP: 02/09/2024 110/68 12/05/2023 136/86 09/21/2023 172/103 12/30/2020 116/73 12/30/2020 120/82 [facility] Diagnosis Pre-op evaluation- Primary Preoperative examination, unspecified Hypertension, unspecified type Other hyperlipidemia Acquired hypothyroidism Unspecified hypothyroidism Other depression ELLEN on CPAP Obstructive sleep apnea (adult) (pediatric) Retention of urine Retention of urine, unspecified Pre-op examination- Primary Preoperative examination, unspecified Hypertension, unspecified type Hyperlipidemia, unspecified hyperlipidemia type ELLEN on CPAP Obstructive sleep apnea (adult) (pediatric) Gastroesophageal reflux disease without esophagitis Esophageal reflux Type 2 diabetes mellitus without complication, unspecified whether usp insulin use (HCC) Acquired hypothyroidism Unspecified hypothyroidism Anemia, unspecified type Gout, unspecified cause, unspecified chronicity, unspecified site Depression, unspecified depression type Retention of urine Retention of urine, unspecified Gait difficulty Abnormality of gait Incomplete emptying of bladder- Primary Incomplete bladder emptying Urinary urgency Urgency of urination Fecal urgency [facility] Diagnosis Acute gouty arthritis Acute gouty arthropathy Spinal stenosis of lumbar region with neurogenic claudication Type 2 diabetes mellitus with hyperglycemia, without long-term current use of insulin (CMS/HCC) documented in [facility] encounter [facility]* Diagnosis Abnormal liver diagnostic imaging- Primary Erectile dysfunction due to diseases classified elsewhere Melena Blood in stool Macrocytic anemia- Primary Chronic fatigue Other malaise and fatigue Medicare annual wellness visit, subsequent- Primary Pure hypercholesterolemia (CMS/HCC) Pure hypercholesterolemia Screening PSA (prostate specific antigen) Special screening for malignant neoplasm of prostate Encounter for long-term current use of medication Type 2 diabetes mellitus with hyperglycemia, without long-term current use of insulin (CMS/HCC) MDD (major depressive disorder), recurrent episode, moderate (CMS/HCC) Type 2 diabetes mellitus with other specified complication (CMS/HCC) Erectile dysfunction due to diseases classified elsewhere Arthropathic psoriasis, 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 Type 2 diabetes mellitus with hyperglycemia, without long-term current use of insulin (CMS/HCC) Benign essential hypertension (CMS/HCC) Essential hypertension, benign MDD (major depressive disorder), recurrent episode, moderate (CMS/HCC) documented in this encounter [facility]* Diagnosis Pre-op evaluation- Primary Preoperative examination, unspecified Hypertension, unspecified type Other hyperlipidemia Acquired hypothyroidism Unspecified hypothyroidism Other depression ELLEN on CPAP Obstructive sleep apnea (adult) (pediatric) Retention of urine Retention of urine, unspecified Pre-op examination- Primary Preoperative examination, unspecified Hypertension, unspecified type Hyperlipidemia, unspecified hyperlipidemia type ELLEN on CPAP Obstructive sleep apnea (adult) (pediatric) Gastroesophageal reflux disease without esophagitis Esophageal reflux Type 2 diabetes mellitus without complication, unspecified whether buttermaker helper insulin use (HCC) Acquired hypothyroidism Unspecified hypothyroidism Anemia, unspecified type Gout, unspecified cause, unspecified chronicity, unspecified site Depression, unspecified depression type Retention of urine Retention of urine, unspecified Gait difficulty Abnormality of gait Pain due to any device, implant or graft, initial encounter- Primary documented in this encounter [facility] note* Diagnosis Pre-op evaluation- Primary Preoperative examination, unspecified Hypertension, unspecified type Other hyperlipidemia Acquired hypothyroidism Unspecified hypothyroidism Other depression ELLEN on CPAP Obstructive sleep apnea (adult) (pediatric) Retention of urine Retention of urine, unspecified Pre-op examination- Primary Preoperative examination, unspecified Hypertension, unspecified type Hyperlipidemia, unspecified hyperlipidemia type ELLEN on CPAP Obstructive sleep apnea (adult) (pediatric) Gastroesophageal reflux disease without esophagitis Esophageal reflux Type 2 diabetes mellitus without complication, unspecified whether usp insulin use (HCC) Acquired hypothyroidism Unspecified hypothyroidism Anemia, unspecified type Gout, unspecified cause, unspecified chronicity, unspecified site Depression, unspecified depression type Retention of urine Retention of urine, unspecified Gait difficulty Abnormality of gait No-show for appointment- Primary documented in this encounter [facility] note* Diagnosis Pre-op evaluation- Primary Preoperative examination, unspecified Hypertension, unspecified type Other hyperlipidemia Acquired hypothyroidism Unspecified hypothyroidism Other depression ELLEN on CPAP Obstructive sleep apnea (adult) (pediatric) Retention of urine Retention of urine, unspecified Pre-op examination- Primary Preoperative examination, unspecified Hypertension, unspecified type Hyperlipidemia, unspecified hyperlipidemia type ELLEN on CPAP Obstructive sleep apnea (adult) (pediatric) Gastroesophageal reflux disease without esophagitis Esophageal reflux Type 2 diabetes mellitus without complication, unspecified whether usp insulin use (HCC) Acquired hypothyroidism Unspecified hypothyroidism Anemia, unspecified type Gout, unspecified cause, unspecified chronicity, unspecified site Depression, unspecified depression type Retention of urine Retention of urine, unspecified Gait difficulty Abnormality of gait B12 deficiency- Primary Other B-complex deficiencies Thyroid disease Unspecified disorder of thyroid Cognitive change Other signs and symptoms involving cognition Controlled type 2 diabetes mellitus without complication, without long-term current use of insulin (HCC) Mixed hyperlipidemia documented in this encounter [facility] note* Diagnosis Pre-op evaluation- Primary Preoperative examination, unspecified Hypertension, unspecified type Other hyperlipidemia Acquired hypothyroidism Unspecified hypothyroidism Other depression ELLEN on CPAP Obstructive sleep apnea (adult) (pediatric) Retention of urine Retention of urine, unspecified Pre-op examination- Primary Preoperative examination, unspecified Hypertension, unspecified type Hyperlipidemia, unspecified hyperlipidemia type ELLEN on CPAP Obstructive sleep apnea (adult) (pediatric) Gastroesophageal reflux disease without esophagitis Esophageal reflux Type 2 diabetes mellitus without complication, unspecified whether buttermaker helper insulin use (HCC) Acquired hypothyroidism Unspecified hypothyroidism Anemia, unspecified type Gout, unspecified cause, unspecified chronicity, unspecified site Depression, unspecified depression type Retention of urine Retention of urine, unspecified Gait difficulty Abnormality of gait Urinary urgency- Primary Urgency of urination Neurogenic bladder Neurogenic bladder, NOS Fecal urgency [facility] Diagnosis Abnormal liver diagnostic imaging- Primary Erectile dysfunction due to diseases classified elsewhere Melena Blood in stool Macrocytic anemia- Primary Chronic fatigue Other malaise and fatigue Medicare annual wellness visit, subsequent- Primary Pure hypercholesterolemia (CMS/HCC) Pure hypercholesterolemia Screening PSA (prostate specific antigen) Special screening for malignant neoplasm of prostate Encounter for long-term current use of medication Type 2 diabetes mellitus with hyperglycemia, without long-term current use of insulin (CMS/HCC) MDD (major depressive disorder), recurrent episode, moderate (CMS/HCC) Type 2 diabetes mellitus with other specified complication (CMS/HCC) Erectile dysfunction due to diseases classified elsewhere Arthropathic psoriasis, 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 Diagnosis Pre-op evaluation- Primary Preoperative examination, unspecified Hypertension, unspecified type Other hyperlipidemia Acquired hypothyroidism Unspecified hypothyroidism Other depression ELLEN on CPAP Obstructive sleep apnea (adult) (pediatric) Retention of urine Retention of urine, unspecified Pre-op examination- Primary Preoperative examination, unspecified Hypertension, unspecified type Hyperlipidemia, unspecified hyperlipidemia type ELLEN on CPAP Obstructive sleep apnea (adult) (pediatric) Gastroesophageal reflux disease without esophagitis Esophageal reflux Type 2 diabetes mellitus without complication, unspecified whether usp insulin use (HCC) Acquired hypothyroidism Unspecified hypothyroidism Anemia, unspecified type Gout, unspecified cause, unspecified chronicity, unspecified site Depression, unspecified depression type Retention of urine Retention of urine, unspecified Gait difficulty Abnormality of gait B12 deficiency- Primary Other B-complex deficiencies Thyroid disease Unspecified disorder of thyroid Cognitive change Other signs and symptoms involving cognition [facility] Diagnosis Abnormal liver diagnostic imaging- Primary Erectile dysfunction due to diseases classified elsewhere Melena Blood in stool Macrocytic anemia- Primary Chronic fatigue Other malaise and fatigue Medicare annual wellness visit, subsequent- Primary Pure hypercholesterolemia (CMS/HCC) Pure hypercholesterolemia Screening PSA (prostate specific antigen) Special screening for malignant neoplasm of prostate Encounter for long-term current use of medication Type 2 diabetes mellitus with hyperglycemia, without long-term current use of insulin (CMS/HCC) MDD (major depressive disorder), recurrent episode, moderate (CMS/HCC) Type 2 diabetes mellitus with other specified complication (CMS/HCC) Erectile dysfunction due to diseases classified elsewhere Arthropathic psoriasis, 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 Type 2 diabetes mellitus with hyperglycemia, without long-term current use of insulin (CMS/HCC) Benign essential hypertension (CMS/HCC) Essential hypertension, benign MDD (major depressive disorder), recurrent episode, moderate (CMS/HCC) Type 2 diabetes mellitus with hyperglycemia, without long-term current use of insulin (CMS/HCC)- Primary Benign essential hypertension (CMS/HCC) Essential hypertension, benign MDD (major depressive disorder), recurrent episode, moderate (CMS/HCC) Adult hypothyroidism (CMS/HCC) Unspecified hypothyroidism Diabetic polyneuropathy associated with type 2 diabetes mellitus (CMS/HCC) Arthropathic psoriasis (CMS/HCC) Psoriatic arthropathy Type 2 diabetes mellitus with other specified complication (CMS/HCC) Erectile dysfunction due to diseases classified elsewhere documented in this encounter [facility]* Diagnosis Pre-op evaluation- Primary Preoperative examination, unspecified Hypertension, unspecified type Other hyperlipidemia Acquired hypothyroidism Unspecified hypothyroidism Other depression ELLEN on CPAP Obstructive sleep apnea (adult) (pediatric) Retention of urine Retention of urine, unspecified Pre-op examination- Primary Preoperative examination, unspecified Hypertension, unspecified type Hyperlipidemia, unspecified hyperlipidemia type ELLEN on CPAP Obstructive sleep apnea (adult) (pediatric) Gastroesophageal reflux disease without esophagitis Esophageal reflux Type 2 diabetes mellitus without complication, unspecified whether usp insulin use (HCC) Acquired hypothyroidism Unspecified hypothyroidism Anemia, unspecified type Gout, unspecified cause, unspecified chronicity, unspecified site Depression, unspecified depression type Retention of urine Retention of urine, unspecified Gait difficulty Abnormality of gait Retention of urine- Primary Retention of urine, unspecified Screening for genitourinary condition Screening for other and unspecified genitourinary condition Foreign body of buttock with infection, initial encounter documented in this encounter [facility] note* Diagnosis Pre-op evaluation- Primary Preoperative examination, unspecified Hypertension, unspecified type Other hyperlipidemia Acquired hypothyroidism Unspecified hypothyroidism Other depression ELLEN on CPAP Obstructive sleep apnea (adult) (pediatric) Retention of urine Retention of urine, unspecified Pre-op examination- Primary Preoperative examination, unspecified Hypertension, unspecified type Hyperlipidemia, unspecified hyperlipidemia type ELLEN on CPAP Obstructive sleep apnea (adult) (pediatric) Gastroesophageal reflux disease without esophagitis Esophageal reflux Type 2 diabetes mellitus without complication, unspecified whether usp insulin use (HCC) Acquired hypothyroidism Unspecified hypothyroidism Anemia, unspecified type Gout, unspecified cause, unspecified chronicity, unspecified site Depression, unspecified depression type Retention of urine Retention of urine, unspecified Gait difficulty Abnormality of gait Infection and inflammatory reaction due to implanted urinary neurostimulation device, subsequent encounter- Primary documented in this encounter [facility] note* Diagnosis Pre-op evaluation- Primary Preoperative examination, unspecified Hypertension, unspecified type Other hyperlipidemia Acquired hypothyroidism Unspecified hypothyroidism Other depression ELLEN on CPAP Obstructive sleep apnea (adult) (pediatric) Retention of urine Retention of urine, unspecified Pre-op examination- Primary Preoperative examination, unspecified Hypertension, unspecified type Hyperlipidemia, unspecified hyperlipidemia type ELLEN on CPAP Obstructive sleep apnea (adult) (pediatric) Gastroesophageal reflux disease without esophagitis Esophageal reflux Type 2 diabetes mellitus without complication, unspecified whether usp insulin use (HCC) Acquired hypothyroidism Unspecified hypothyroidism Anemia, unspecified type Gout, unspecified cause, unspecified chronicity, unspecified site Depression, unspecified depression type Retention of urine Retention of urine, unspecified Gait difficulty Abnormality of gait Screening for genitourinary condition Screening for other and unspecified genitourinary condition documented in this encounter [facility] note* Diagnosis Pre-op evaluation- Primary Preoperative examination, unspecified Hypertension, unspecified type Other hyperlipidemia Acquired hypothyroidism Unspecified hypothyroidism Other depression ELLEN on CPAP Obstructive sleep apnea (adult) (pediatric) Retention of urine Retention of urine, unspecified Pre-op examination- Primary Preoperative examination, unspecified Hypertension, unspecified type Hyperlipidemia, unspecified hyperlipidemia type ELLEN on CPAP Obstructive sleep apnea (adult) (pediatric) Gastroesophageal reflux disease without esophagitis Esophageal reflux Type 2 diabetes mellitus without complication, unspecified whether buttermaker helper insulin use (HCC) Acquired hypothyroidism Unspecified hypothyroidism Anemia, unspecified type Gout, unspecified cause, unspecified chronicity, unspecified site Depression, unspecified depression type Retention of urine Retention of urine, unspecified Gait difficulty Abnormality of gait Screening for genitourinary condition Screening for other and unspecified genitourinary condition documented in this encounter [facility] note* Diagnosis Pre-op evaluation- Primary Preoperative examination, unspecified Hypertension, unspecified type Other hyperlipidemia Acquired hypothyroidism Unspecified hypothyroidism Other depression ELLEN on CPAP Obstructive sleep apnea (adult) (pediatric) Retention of urine Retention of urine, unspecified Pre-op examination- Primary Preoperative examination, unspecified Hypertension, unspecified type Hyperlipidemia, unspecified hyperlipidemia type ELLEN on CPAP Obstructive sleep apnea (adult) (pediatric) Gastroesophageal reflux disease without esophagitis Esophageal reflux Type 2 diabetes mellitus without complication, unspecified whether buttermaker helper insulin use (HCC) Acquired hypothyroidism Unspecified hypothyroidism Anemia, unspecified type Gout, unspecified cause, unspecified chronicity, unspecified site Depression, unspecified depression type Retention of urine Retention of urine, unspecified Gait difficulty Abnormality of gait Retention of urine- Primary Retention of urine, unspecified Methicillin resistant Staphylococcus aureus infection Methicillin resistant Staphylococcus aureus in conditions classified elsewhere and of unspecified site Foreign body of buttock with infection, subsequent encounter documented in this encounter [facility] note* Diagnosis Abnormal liver diagnostic imaging- Primary Erectile dysfunction due to diseases classified elsewhere Melena Blood in stool Macrocytic anemia- Primary Chronic fatigue Other malaise and fatigue Medicare annual wellness visit, subsequent- Primary Pure hypercholesterolemia (CMS/HCC) Pure hypercholesterolemia Screening PSA (prostate specific antigen) Special screening for malignant neoplasm of prostate Encounter for long-term current use of medication Type 2 diabetes mellitus with hyperglycemia, without long-term current use of insulin (CMS/HCC) MDD (major depressive disorder), recurrent episode, moderate (CMS/HCC) Type 2 diabetes mellitus with other specified complication Erectile dysfunction due to diseases classified elsewhere Arthropathic psoriasis, 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 Type 2 diabetes mellitus with hyperglycemia, without long-term current use of insulin (CMS/HCC) Benign essential hypertension (CMS/HCC) Essential hypertension, benign MDD (major depressive disorder), recurrent episode, moderate (CMS/HCC) Type 2 diabetes mellitus with hyperglycemia, without long-term current use of insulin (CMS/HCC)- Primary Benign essential hypertension (CMS/HCC) Essential hypertension, benign MDD (major depressive disorder), recurrent episode, moderate (CMS/HCC) Adult hypothyroidism (CMS/HCC) Unspecified hypothyroidism Diabetic polyneuropathy associated with type 2 diabetes mellitus ([facility]) Arthropathic psoriasis Psoriatic arthropathy Type 2 diabetes mellitus with other specified complication Erectile dysfunction due to diseases classified elsewhere Mixed hyperlipidemia ([facility]) Mixed hyperlipidemia documented in [facility]* Diagnosis Pre-op evaluation- Primary Preoperative examination, unspecified Hypertension, unspecified type Other hyperlipidemia Acquired hypothyroidism Unspecified hypothyroidism Other depression ELLEN on CPAP Obstructive sleep apnea (adult) (pediatric) Retention of urine Retention of urine, unspecified Pre-op examination- Primary Preoperative examination, unspecified Hypertension, unspecified type Hyperlipidemia, unspecified hyperlipidemia type ELLEN on CPAP Obstructive sleep apnea (adult) (pediatric) Gastroesophageal reflux disease without esophagitis Esophageal reflux Type 2 diabetes mellitus without complication, unspecified whether buttermaker helper insulin use ([facility]) Acquired hypothyroidism Unspecified hypothyroidism Anemia, unspecified type Gout, unspecified cause, unspecified chronicity, unspecified site Depression, unspecified depression type Retention of urine Retention of urine, unspecified Gait difficulty Abnormality of gait Foreign body of buttock with infection, subsequent encounter- Primary documented in this encounter [facility] course Narrative No data available for this section [facility] Discharge instructions No data available for this section [facility] Progress note No data available for this section [facility] Procurics Summary Purpose Family History No Family History Records Found Relationship Condition Age at Onset Recorded Date/T rohit Not Specified Hypertension Unknown father Type 2 diabetes mellitus Unknown Relationship Condition Age at Onset Recorded Date/T rohit mother Hypertension Unknown father Type 2 diabetes mellitus Unknown brother Heart disease Unknown father Unknown Heart disease Unknown family member Family history of other condition Unknow n mother Heart disease Unknown Unknown Advance Directives No Advanced Directives Records FoundDocuments on File Type Date Recorded Patient Deep Well Contractor Expl anation Advance Directives and Living Will Power of Plush Finisher Documents on File Type Date Recorded Patient Deep Well Contractor Expl anation Advance Directives and Living Will Power of Plush Finisher Documents on File Type Date Recorded Patient Deep Well Contractor Expl anation Advance Directives and Living Will ACP-Power of Plush Finisher Documents on File Type Date Recorded Patient Deep Well Contractor Expl anation ACP-Advance Directive ACP-Power of Plush Finisher Documents on File Type Date Recorded Patient Deep Well Contractor Expl anation ACP-Advance Directive ACP-Power of Plush Finisher Latest Code Status on File Code Status Date Activated Date Inactivated Comments Full Code 08/21/2021 2:05 PM Full Code 08/02/2021 2:16 AM 08/21/2021 2:05 PM Full Code 01/02/2019 6:01 AM 01/02/2019 6:29 PM Healthcare Agents on File Name Relationship Healthcare Agent Relationshi p Communication Bridget Almeida Spouse Health Care Agent izabelaAttivio Ysabel Knight Child First Alternate Health Care Agent [email or web address] [email or web address] Response Recorded Date/ Time Advance Directives No April 6:23am Latest Code Status on File Code Status Date Activated Date Inactivated Comments Full Code 08/21/2021 2:05 PM Code Status History Code Status Date Activated Date Inactivated Comments Full Code 08/02/2021 2:16 AM 08/21/2021 2:05 PM Full Code 01/02/2019 6:01 AM 01/02/2019 6:29 PM Healthcare Agents on File Name Relationship Healthcare Agent Relationshi p Communication Bridget Almeida Spouse Health Care Agent Nostalgia BingohophongiAttivio Ysabel Knight Child First Alternate Health Care Agent [email or web address] Agents on File Name Relationship Healthcare Agent Relationshi p Communication Bridget Almeida Spouse Health Care Agent slahoskiAttivio Ysabel Knight Child First Alternate Health Care Agent [email or web address] Status on File Code Status Date Activated Date Inactivated Comments Full Code 08/21/2021 2:05 PM Code Status History Code Status Date Activated Date Inactivated Comments Full Code 08/02/2021 2:16 AM 08/21/2021 2:05 PM Full Code 01/02/2019 6:01 AM 01/02/2019 6:29 PM Healthcare Agents on File Name Relationship Healthcare Agent Christine Almeida Spouse Health Care Agent [email or web address] Ysabel Knight Child First Alternate Health Care Agent [email or web address] Diagnosis Hypothyroidism, unspecified type Controlled type 2 diabetes mellitus without complication, with long-term current use of insulin (HCC) Mixed hyperlipidemia Essential hypertension Unspecified essential hypertension Diagnosis Lightheadedness Dizziness and giddiness Fever, unspecified fever cause Fatigue, unspecified type Viral syndrome Unspecified viral infection, in conditions classified elsewhere and of unspecified site Diagnosis Fever, unspecified fever cause Chills Chills (without fever) Shortness of breath Loss of taste Disturbances of sensation of smell and taste Loss of smell Disturbances of sensation of smell and taste Confusion Unspecified psychosis Viral syndrome Unspecified viral infection, in conditions classified elsewhere and of unspecified site Diagnosis Type 2 diabetes mellitus without complication, unspecified whether buttermaker helper insulin use (HCC) Fatigue, unspecified type Diagnosis Impaired fasting glucose Generalized abdominal pain Abdominal pain, generalized Diagnosis Shortness of breath Cough Diagnosis Expressive aphasia Aphasia Fatigue, unspecified type Cognitive dysfunction Unspecified persistent mental disorders due to conditions classified elsewhere Diagnosis Fatigue, unspecified type Positive FIT (fecal immunochemical test) Diagnosis Fatigue, unspecified type Positive FIT (fecal immunochemical test) Weight loss, unintentional Loss of weight Diagnosis Anemia, unspecified type Fatigue, unspecified type Bladder wall thickening Other specified disorders of bladder Diagnosis Screening PSA (prostate specific antigen) Special screening for malignant neoplasm of prostate Hypothyroidism, unspecified type Controlled type 2 diabetes mellitus without complication, with long-term current use of insulin (HCC) Mixed hyperlipidemia Essential hypertension Unspecified essential hypertension Fatigue, unspecified type Anemia, unspecified type Diagnosis Fatigue, unspecified type Diagnosis Controlled type 2 diabetes mellitus without complication, with long-term current use of insulin (HCC) Mixed hyperlipidemia Essential hypertension Unspecified essential hypertension Hypothyroidism, unspecified type Diagnosis Pre-procedure lab exam Pre-procedural laboratory examination Diagnosis Fatigue, unspecified type Diagnosis Shortness of breath Diagnosis Hypothyroidism, unspecified type Diagnosis Anemia, unspecified type Controlled type 2 diabetes mellitus without complication, with long-term current use of insulin (HCC) Reason for Referral Status Reason Specialty Diagnoses / Procedures Referred By Contact Referred To Contact Pending Review Radiology Diagnoses Expressive aphasia Fatigue, unspecified type Cognitive dysfunction Procedures MRI BRAIN W WO CONTRAST Cathleen Cooney MD [address] [place] [address] Status Reason Specialty Diagnoses / Procedures Referre d By Contact Referred To Contact Closed Radiology Diagnoses Fatigue, unspecified type Positive FIT (fecal immunochemical test) Weight loss, unintentional Procedures CT ABDOMEN PELVIS W IV CONTRAST Additional Contrast? Oral CHG CT SCAN,ABDOMENT AND PELVIS,W CONTRAST Cathleen Cooney MD [address] [place] [address] [place] [address] Status Reason Specialty Diagnoses / Procedures Referred By Contact Referred To Contact Authorized Cardiology / Stress Lab Diagnoses Fatigue, unspecified type Procedures Stress test, myoview CHG MYOCARDIAL SPECT MULTIPLE STUDIES Cathleen Cooney MD [address] [place] [address] [facility] [address] [place] [address] Status Reason Specialty Diagnoses / Procedures Referre d By Contact Referred To Contact Closed Radiology Diagnoses Myelopathy, spondylogenic, cervical Procedures MRI CERVICAL SPINE WO CONTRAST Chance Mcneal MD [address] [place] [address] Specialty Diagnoses / Procedures Referred By Contac t Referred To Contact Physical Therapy Diagnoses Epidural abscess Lumbar spine tumor Lonny oPp, [employer]BESTOS WIRE FINISHER-ADDRESSOGRAPH OPERATOR [address] [place] [address] Referral ID Status Reason Start Date Expiration Date V isits Requested Visits Authorized [id number] Pending Review 02/18/2022 03/15/2023 1 1 Scheduling Instructions [facility] [address] 2nd [place] [address] Fax [facility] (Neck and Back Therapy) [address] [place], [place] [address] [phone] FAX [facility] [address] [place] [address] FAX [facility] [place] [address] [facility] [address] [place] [address] FAX [facility] [address] [place] [address] FAX [facility] [address] [place], [place] [address] FAX [facility] [address] [place], [place] [phone] FAX [facility] [address] [place], [place] [address] FAX Specialty Diagnoses / Procedures Referred By Contac t Referred To Contact Diagnoses S/P lumbar fusion Procedures MRI SPINE LUMBAR WITH AND WITHOUT CONTRAST NC MRI, LUMBAR SPINE Ayush Duran ASBESTOS WIRE FINISHER-ADDRESSOGRAPH OPERATOR [address] [place] [address] Referral ID Status Reason Start Date Expiration Date Visits Re quested Visits Authorized [id number] Closed 08/12/2023 09/05/2024 1 1 Specialty Diagnoses / Procedures Referred By Contac t Referred To Contact Diagnoses S/P laminectomy Procedures MRI SPINE THORACIC WITH AND WITHOUT CONTRAST NC MRI, DORSAL SPINE Ayush Duran, ASBEST[employer] WIRE FINISHER-ADDRESSOGRAPH OPERATOR [address] [place] [address] Referral ID Status Reason Start Date Expiration Date Visits Re quested Visits Authorized [id number] Closed 08/12/2023 09/05/2024 1 1 Specialty Diagnoses / Procedures Referred By Debra zamorano Referred To Contact CT IMAGING Diagnoses Cognitive change Procedures CT BRAIN WO IVCON CT HEAD/BRAIN W/O CONTRAST MATERIAL Broderick Benitez MD [address] [place] [address] Ct Imaging [facility] Referral ID Status Reason Start Date Expiration Date Visits Requested Visits Authorized [id number] New Request Auto-Generat ed Referral 4 07/28/2025 1 1 Chief Complaint and Reason for Visit Chief Complaint Open Wound CART Reason for Visit At high risk for ski n breakdown Diabetes mellitus, type [address] Limited mobility Paraplegia, incomplete Pressure ulcer of sacral region, stage [address] Chief Complaint Referred by Dr Naz valentino, Abnormal liver US E11.9 R93.2 Z97.8 Z97.8 Right hand injury s/p fall M79.641 - Pain in right hand Reason for Visit Abnormal liver ultra sound Closed boxer's fracture Chief Complaint Referred by Dr Naz valentino, Abnormal liver US E11.9 R93.2 Z97.8 Z97.8 Right hand injury s/p fall M79.641 - Pain in right hand R93.2 abnormal liver u/s Reason for Visit Abnormal liver ultra sound Closed boxer's fracture Additional Source Comments (unrecognized sect ion and content) No Status Records FoundNo Status Records FoundNo Status Records FoundNo Status Records FoundNo Status Records FoundNo Status Records FoundNo Status Records FoundNo Status Records FoundNo Status Records FoundNo Status Records FoundNo Status Records Found INFORMATION SOURCE (unrecogn ized section and content) DATE CREATED AUTHOR 10/29/2018 [facility] DATE CREATED AUTHOR AUTHOR'S ORGANIZ ATION 01/06/2019 Aleisha feliz DATE CREATED AUTHOR AUTHOR'S ORGANIZ ATION 08/19/2020 [facility] DATE CREATED AUTHOR AUTHOR'S ORGANIZ ATION 06/04/2021 [facility] DATE CREATED AUTHOR AUTHOR'S ORGANIZ ATION 01/21/2023 [facility] DATE CREATED AUTHOR AUTHOR'S ORGANIZ ATION 09/22/2023 [facility] DATE CREATED AUTHOR AUTHOR'S ORGANIZ ATION 12/11/2023 [facility] DATE CREATED AUTHOR AUTHOR'S ORGANIZ ATION 08/14/2024 [facility] DATE CREATED AUTHOR AUTHOR'S ORGANIZ ATION 09/13/2024 [facility] DATE CREATED AUTHOR AUTHOR'S ORGANIZ ATION 09/15/2024 [facility] DATE CREATED AUTHOR AUTHOR'S ORGANIZ ATION 11/24/2024 [facility] Reason for Visit (unrecogniz ed section and content) Status Reason Specialty Diagnoses / Procedures Referred By Contact Referred To Contact Pending Review Radiology Diagnoses Expressive aphasia Fatigue, unspecified type Cognitive dysfunction Procedures MRI BRAIN W WO CONTRAST Cathleen Cooney MD [address] [place] [address] Status Reason Specialty Diagnoses / Procedures Referre d By Contact Referred To Contact Closed Radiology Diagnoses Fatigue, unspecified type Positive FIT (fecal immunochemical test) Weight loss, unintentional Procedures CT ABDOMEN PELVIS W IV CONTRAST Additional Contrast? Oral CHG CT SCAN,ABDOMENT AND PELVIS,W CONTRAST Cathleen Cooney MD [address] [place] [address] [address] Status Reason Specialty Diagnoses / Procedures Referred By Contact Referred To Contact Authorized Cardiology / Stress Lab Diagnoses Fatigue, unspecified type Procedures Stress test, myoview CHG MYOCARDIAL SPECT MULTIPLE STUDIES Cathleen Cooney MD [address] [place] [address] [facility] [address] [place] [address] Status Reason Specialty Diagnoses / Procedures Referred By Contact Referred To Contact Closed Cardiology / Stress Lab Diagnoses Fatigue, unspecified type Procedures Stress test, myoview CHG MYOCARDIAL SPECT MULTIPLE STUDIES Cathleen Cooney MD [address] [place] [address] [facility] [address] [place] [address] Status Reason Specialty Diagnoses / Procedures Referre d By Contact Referred To Contact Closed Radiology Diagnoses Myelopathy, spondylogenic, cervical Procedures MRI CERVICAL SPINE WO CONTRAST Chance Mcneal MD [address] [place] [address] Reason Comments Follow-up Reason Comments Opened In Error Reason Comments Rejected CMN Specialty Diagnoses / Procedures Referred By Contac t Referred To Contact Diagnoses S/P lumbar fusion Procedures MRI SPINE LUMBAR WITH AND WITHOUT CONTRAST NC MRI, LUMBAR SPINE Ayush Duran, ASBESTOS WIRE FINISHER-ADDRESSOGRAPH OPERATOR [address] [place] [address] Referral ID Status Reason Start Date Expiration Date Visits Re quested Visits Authorized [id number] Closed 08/12/2023 09/05/2024 1 1 Specialty Diagnoses / Procedures Referred By Contac t Referred To Contact Diagnoses S/P laminectomy Procedures MRI SPINE THORACIC WITH AND WITHOUT CONTRAST NC MRI, DORSAL SPINE Ayush Duran, ASBE[employer] WIRE FINISHER-ADDRESSOGRAPH OPERATOR [address] [place] [address] Referral ID Status Reason Start Date Expiration Date Visits Re quested Visits Authorized [id number] Closed 08/12/2023 09/05/2024 1 1 Reason Comments Follow-up Reason Comments Schedule Surgery Reason Comments Pre-Op Visit Reason Comments PreOp Call Reason Comments Patient Question Reason Comments Appointment Reason Comments Post-Op Visit Reason Onset Date Comments Med Refill 05/16/2024 Reason Comments Follow-up Go over labs and rudi er scan Reason Comments Established Patient Reason Comments No Show Cx/ns Reason Comments Cognitive change Reason Comments Vitamin B12 deficiency Reason Comments Follow-up 3m Reason Comments Follow Up Reason Comments Consult I&D Reason Comments Patient Update Reason Comments Urine retention Reason Onset Date Comments Med Refill 11/20/2024 Care Team (unrecognized sect ion and content) Team Status: Active Member Role Status Dates Ankit Khan MD Primary Care Provider Active Team Status: Inactive Member Role Status Dates Ankit Khan MD Primary Care Provider Active S tart: April 19, 2024 End: April 19, 2024 Yobany Ellison MD Attending Provider Active Start: April 19, 2024 End: April 19, 2024 Team Status: Inactive Member Role Status Dates Ankit Khan MD Primary Care Provider Active S tart: April 19, 2024 End: April 19, 2024 Rebekah Siddiqi APRN Attending Provider Active Start: April 19, 2024 End: April 19, 2024 Team Status: Active Member Role Status Dates Ankit Khan MD Primary Care Provider Active S tart: April 19, 2024 Rebekah Siddiqi APRN Attending Provider Active Start: April 19, 2024 Stopper Setter Relationship Specialty Start Date End Date Ankit Khan MD [address] [place] [address] PCP - General Family Medicine 09/24/21 Tee Carpenter MD Orthopaedic Surgery 11/23/18 Ankit Khan MD [address] [place] [address] Family Physician Family Medicine 08/04/21 Sarmad Finley MD [address] [place] [address] Neurosurgeon Neurological Surgery 08/05/21 Team Status: Inactive Member Role Status Dates Shira Johnson APRN Attending Provider Active Ankit Khan MD Primary Care Provider Active Stopper Setter Relationship Specialty Start Date End Date [facility] Cooney [facility] [place] [place] [address] PCP - General Internal Medicine 06/08/21 Cathleen Cooney [address] [place] [address] Referring Internal Medicine 06/08/21 Stopper Setter Relationship Specialty Start Date End Date Ankit Khan MD [address] [place] [address] PCP - General Family Medicine 09/24/21 Tee Carpenter MD Orthopaedic Surgery 11/23/18 Ankit Khan MD [address] [place] [address] Family Physician Family Medicine 08/04/21 Sarmad Finley MD [address] [place] [address] Neurosurgeon Neurological Surgery 08/05/21 Stopper Setter Relationship Specialty Start Date End Date Ankit Khan MD [address] [place] [address] PCP - General Family Medicine 09/24/21 Tee Carpenter MD Orthopaedic Surgery 11/23/18 Ankit Khan MD [address] [place] [address] Family Physician Family Medicine 08/04/21 Sarmad Finley MD [address] [place] [address] Neurosurgeon Neurological Surgery 08/05/21 Stopper Setter Relationship Specialty Start Date End Date Cathleen Cooney MD [address] [place] [address] [place] [id number] PCP - General Internal Medicine 06/08/21 Cathleen Cooney MD [address] [place] [address] Referring Internal Medicine 06/08/21 Dina Ortiz MD [address] [facility] [place] [address] Referring Urology 09/14/23 Stopper Setter Relationship Specialty Start Date End Date Ankit Khan MD [address] [place] [address] PCP - General Family Medicine 09/24/21 Tee Carpenter MD Orthopaedic Surgery 11/23/18 Ankit Khan MD [address] [place] [address] Family Physician Family Medicine 08/04/21 Sarmad Finley MD [address] [place] [address] Neurosurgeon Neurological Surgery 08/05/21 Stopper Setter Relationship Specialty Start Date End Date Ankit Khan MD PCP - General Family Medicine 08/10/23 Stopper Setter Relationship Specialty Start Date End Date Cathleen Cooney MD [address] [place] [address] PCP - General Internal Medicine 06/08/21 Cathleen Cooney MD [address] [address] Referring Internal Medicine 06/08/21 Dina Ortiz MD [address] [place] [address] Referring Urology 09/14/23 Stopper Setter Relationship Specialty Start Date End Date Cathleen Cooney MD [address] [place] [address] PCP - General Internal Medicine 06/08/21 Cathleen Cooney MD [address] [place] [address] [place] [address] Referring Internal Medicine 06/08/21 Dina Ortiz MD [address] [place] [address] Referring Urology 09/14/23 Stopper Setter Relationship Specialty Start Date End Date Cathleen Cooney MD [address] [place] [address] [place] [id number] PCP - General Internal Medicine 06/08/21 Cathleen Cooney MD [address] [place] [address] Referring Internal Medicine 06/08/21 Dina Ortiz MD [address] [place] [address] Referring Urology 09/14/23 Stopper Setter Relationship Specialty Start Date End Date Cathleen Cooney MD [address] [place] [id number] PCP - General Internal Medicine 06/08/21 Cathleen Cooney MD [address] [place], [facility] Referring Internal Medicine 06/08/21 Dina Ortiz MD [address] [place] [address] Referring Urology 09/14/23 Stopper Setter Relationship Specialty Start Date End Date Cathleen Cooney MD [address] [place] [id number] PCP - General Internal Medicine 06/08/21 Cathleen Cooney MD [address] [place] [address] [address] [place], [facility] Referring Internal Medicine 06/08/21 Dina Ortiz MD [address] [place] [address] Referring Urology 09/14/23 Stopper Setter Relationship Specialty Start Date End Date Cathleen Cooney MD [address] [place] [address] [address] [place], [facility] PCP - General Internal Medicine 06/08/21 Cathleen Cooney MD [address] [place] [address] Referring Internal Medicine 06/08/21 Dina Ortiz MD [address] [place] [address] Referring Urology 09/14/23 Stopper Setter Relationship Specialty Start Date End Date Cathleen Cooney MD [address] [place] [phone] PCP - General Internal Medicine 06/08/21 Cathleen Cooney MD [address] [place] [address] Referring Internal Medicine 06/08/21 Dina Ortiz MD [address] [place] [address] Referring Urology 09/14/23 Stopper Setter Relationship Specialty Start Date End Date Ankit Khan [address] [place] [address] PCP - General Family Medicine 02/07/24 Dina Ortiz MD [address] [place] [address] Referring Urology 09/14/23 Stopper Setter Relationship Specialty Start Date End Date Ankit Khan [address] [place] [address] PCP - General Family Medicine 02/07/24 Dina Ortiz MD [address] [place] [address] Referring Urology 09/14/23 Stopper Setter Relationship Specialty Start Date End Date Ankit Khan [address] [place] [address] PCP - General Family Medicine 02/07/24 Dina Ortiz MD [address] [place] [place] [address] Referring Urology 09/14/23 Stopper Setter Relationship Specialty Start Date End Date Ankit Khan [address] [place] [address] PCP - General Family Medicine 02/07/24 Dina Ortiz MD [address] [place] [address] Referring Urology 09/14/23 Stopper Setter Relationship Specialty Start Date End Date Ankit Khan [address] [place] [address] PCP - General Family Medicine 02/07/24 Dina Ortiz MD [address] [place] [address] Referring Urology 09/14/23 Stopper Setter Relationship Specialty Start Date End Date Ankit Khan [address] [place] [address] PCP - General Family Medicine 02/07/24 Dina Ortiz MD [address] [place] [address] Referring Urology 09/14/23 Stopper Setter Relationship Specialty Start Date End Date Ankit Khan [address] [place], [place] [address] PCP - General Family Medicine 02/07/24 Dina Ortiz MD [address] [place] [address] Referring Urology 09/14/23 Stopper Setter Relationship Specialty Start Date End Date Ankit Khan [address] [place] [address] PCP - General Family Medicine 02/07/24 Dina Ortiz MD [address] [place] [address] Referring Urology 09/14/23 Team Status: Active Member Role Status Dates Ankit Khan MD Primary Care Provider Active S tart: May 02, 2024 Yobany Ellison MD Attending Provider Active Start: May 02, 2024 Team Status: Inactive Member Role Status Dates Ankit Khan MD Primary Care Provider Active S tart: May 02, 2024 End: May 02, 2024 Yobany Ellison MD Attending Provider Active Start: May 02, 2024 End: May 02, 2024 Stopper Setter Relationship Specialty Start Date End Date Ankit Khan MD [address] [place] [phone] PCP - General Family Medicine 10/20/23 Shaikh Chilel MD [address] [place] [address] PCP - [employer] 12/14/23 Stopper Setter Relationship Specialty Start Date End Date Ankit Khan MD [address] [place] [address] PCP - General Family Medicine 10/20/23 Shaikh Chilel MD [address] [place] [address] PCP - [employer] 12/14/23 Stopper Setter Relationship Specialty Start Date End Date Ankit Khan MD [address] [place] [address] PCP - General Family Medicine 10/20/23 Shaikh Chilel MD [address] [place] [address] PCP - [employer] 12/14/23 Stopper Setter Relationship Specialty Start Date End Date Ankit Khan MD [address] [place] [address] PCP - General Family Medicine 02/07/24 Dina Ortiz MD [address] [place] [address] Referring Urology 09/14/23 Stopper Setter Relationship Specialty Start Date End Date Ankit Khan MD [address] [place] [address] PCP - General Family Medicine 02/07/24 Dina Ortiz MD [address] [place] [address] Referring Urology 09/14/23 Stopper Setter Relationship Specialty Start Date End Date Ankit Khan MD [address] [place] [address] PCP - General Family Medicine 02/07/24 Dina Ortiz MD [address] [place] [address] Referring Urology 09/14/23 Stopper Setter Relationship Specialty Start Date End Date Ankit Khan MD [address] [place] [address] PCP - General Family Medicine 02/07/24 Dina Ortiz MD [address] [place] [address] Referring Urology 09/14/23 Stopper Setter Relationship Specialty Start Date End Date Ankit Khan MD [address] [place] [address] PCP - General Family Medicine 02/07/24 Dina Ortiz MD [address] [place] [address] Referring Urology 09/14/23 Stopper Setter Relationship Specialty Start Date End Date Ankit Khan MD [address] [place] [address] PCP - General Family Medicine 02/07/24 Dina Ortiz MD [address] [place] [address] Referring Urology 09/14/23 Stopper Setter Relationship Specialty Start Date End Date Ankit Khan MD [address] [place] [address] PCP - General Family Medicine 02/07/24 Dina Ortiz MD [address] [place] [address] Referring Urology 09/14/23 Stopper Setter Relationship Specialty Start Date End Date Ankit Khan MD [address] [place] [address] PCP - General Family Medicine 02/07/24 Dina Ortiz MD [address] [place] [address] Referring Urology 09/14/23 Stopper Setter Relationship Specialty Start Date End Date Ankit Khan MD [address] [place] [phone] PCP - General Family Medicine 10/20/23 Shaikh Chilel MD [address] [place] [phone] PCP - [employer] 12/14/23 Stopper Setter Relationship Specialty Start Date End Date Ankit Khan MD [address] [place] [phone] PCP - General Family Medicine 10/20/23 Shaikh Chilel MD [address] [place] [address] PCP - [employer] 12/14/23 Stopper Setter Relationship Specialty Start Date End Date Ankit Khan MD [address] [place] [address] PCP - General Family Medicine 02/07/24 Dina Ortiz MD [address] [place] [address] Referring Urology 09/14/23 Stopper Setter Relationship Specialty Start Date End Date Ankit Khan MD [address] [place] [address] PCP - General Family Medicine 02/07/24 Dina Ortiz MD [address] [place] [address] Referring Urology 09/14/23 Stopper Setter Relationship Specialty Start Date End Date Ankit Khan MD [address] [place] [phone] PCP - General Family Medicine 10/20/23 Ankit Khan MD [address] [place] [address] PCP - [employer] 12/14/23 Stopper Setter Relationship Specialty Start Date End Date Ankit Khan MD [address] [place] [phone] PCP - General Family Medicine 10/20/23 Ankit Khan MD [address] [place] [address] PCP - [employer] 12/14/23 Stopper Setter Relationship Specialty Start Date End Date Ankit Khan MD [address] [place] [address] PCP - General Family Medicine 02/07/24 Dina Ortiz MD [address] [place] [address] Referring Urology 09/14/23 Stopper Setter Relationship Specialty Start Date End Date Ankit Khan MD [address] [place] [address] PCP - General Family Medicine 02/07/24 Dina Ortiz MD [address] [place] [address] Referring Urology 09/14/23 Stopper Setter Relationship Specialty Start Date End Date Ankit Khan MD [address] [place] [address] PCP - General Family Medicine 02/07/24 Dina Ortiz MD [address] [place] [address] Referring Urology 09/14/23 Stopper Setter Relationship Specialty Start Date End Date Ankit Khan MD [address] [place] [address] PCP - General Family Medicine 02/07/24 Dina Ortiz MD [address] [place] [address] Referring Urology 09/14/23 Stopper Setter Relationship Specialty Start Date End Date Ankit Khan MD [address] [place] [phone] PCP - General Family Medicine 10/20/23 Ankit Khan MD [address] [place] [address] PCP - [employer] 12/14/23 Stopper Setter Relationship Specialty Start Date End Date Ankit Khan MD [address] [place] [phone] PCP - General Family Medicine 10/20/23 Ankit Khan MD [address] [place] [address] PCP - [employer] 12/14/23 Stopper Setter Relationship Specialty Start Date End Date Ankit Khan MD [address] [place], [place] [id number] PCP - General Family Medicine 02/07/24 Dina Ortiz MD [address] [place] [address] Referring Urology 09/14/23 Goals (unrecognized section and content) Goals may be documented in a n alternate section Source Comments (unrecognize d section and content) In the event this informatio n is protected by the Federal Confidentiality of Alcohol and Drug Abuse Patient Records regulations: The Federal rules restrict any use of the information to criminally investigate or prosecute any alcohol or drug abuse patient.[facility] the event this information is protected by the Federal Confidentiality of Alcohol and Drug Abuse Patient Records regulations: The Federal rules restrict any use of the information to criminally investigate or prosecute any alcohol or drug abuse patient.[facility] the event this information is protected by the Federal Confidentiality of Alcohol and Drug Abuse Patient Records regulations: The Federal rules restrict any use of the information to criminally investigate or prosecute any alcohol or drug abuse patient.[facility] the event this information is protected by the Federal Confidentiality of Alcohol and Drug Abuse Patient Records regulations: The Federal rules restrict any use of the information to criminally investigate or prosecute any alcohol or drug abuse patient.[facility] the event this information is protected by the Federal Confidentiality of Alcohol and Drug Abuse Patient Records regulations: The Federal rules restrict any use of the information to criminally investigate or prosecute any alcohol or drug abuse patient.[facility] the event this information is protected by the Federal Confidentiality of Alcohol and Drug Abuse Patient Records regulations: The Federal rules restrict any use of the information to criminally investigate or prosecute any alcohol or drug abuse patient.[facility] the event this information is protected by the Federal Confidentiality of Alcohol and Drug Abuse Patient Records regulations: The Federal rules restrict any use of the information to criminally investigate or prosecute any alcohol or drug abuse patient.[facility] the event this information is protected by the Federal Confidentiality of Alcohol and Drug Abuse Patient Records regulations: The Federal rules restrict any use of the information to criminally investigate or prosecute any alcohol or drug abuse patient.[facility] the event this information is protected by the Federal Confidentiality of Alcohol and Drug Abuse Patient Records regulations: The Federal rules restrict any use of the information to criminally investigate or prosecute any alcohol or drug abuse patient.[facility] the event this information is protected by the Federal Confidentiality of Alcohol and Drug Abuse Patient Records regulations: The Federal rules restrict any use of the information to criminally investigate or prosecute any alcohol or drug abuse patient.[facility] the event this information is protected by the Federal Confidentiality of Alcohol and Drug Abuse Patient Records regulations: The Federal rules restrict any use of the information to criminally investigate or prosecute any alcohol or drug abuse patient.[facility] the event this information is protected by the Federal Confidentiality of Alcohol and Drug Abuse Patient Records regulations: The Federal rules restrict any use of the information to criminally investigate or prosecute any alcohol or drug abuse patient.[facility] the event this information is protected by the Federal Confidentiality of Alcohol and Drug Abuse Patient Records regulations: The Federal rules restrict any use of the information to criminally investigate or prosecute any alcohol or drug abuse patient.[facility] the event this information is protected by the Federal Confidentiality of Alcohol and Drug Abuse Patient Records regulations: The Federal rules restrict any use of the information to criminally investigate or prosecute any alcohol or drug abuse patient.[facility] the event this information is protected by the Federal Confidentiality of Alcohol and Drug Abuse Patient Records regulations: The Federal rules restrict any use of the information to criminally investigate or prosecute any alcohol or drug abuse patient.[facility] the event this information is protected by the Federal Confidentiality of Alcohol and Drug Abuse Patient Records regulations: The Federal rules restrict any use of the information to criminally investigate or prosecute any alcohol or drug abuse patient.[facility] the event this information is protected by the Federal Confidentiality of Alcohol and Drug Abuse Patient Records regulations: The Federal rules restrict any use of the information to criminally investigate or prosecute any alcohol or drug abuse patient.[facility] the event this information is protected by the Federal Confidentiality of Alcohol and Drug Abuse Patient Records regulations: The Federal rules restrict any use of the information to criminally investigate or prosecute any alcohol or drug abuse patient.[facility]In the event this information is protected by the Federal Confidentiality of Alcohol and Drug Abuse Patient Records regulations: The Federal rules restrict any use of the information to criminally investigate or prosecute any alcohol or drug abuse patient.[facility]In the event this information is protected by the Federal Confidentiality of Alcohol and Drug Abuse Patient Records regulations: The Federal rules restrict any use of the information to criminally investigate or prosecute any alcohol or drug abuse patient.[facility] the event this information is protected by the Federal Confidentiality of Alcohol and Drug Abuse Patient Records regulations: The Federal rules restrict any use of the information to criminally investigate or prosecute any alcohol or drug abuse patient.[facility]In the event this information is protected by the Federal Confidentiality of Alcohol and Drug Abuse Patient Records regulations: The Federal rules restrict any use of the information to criminally investigate or prosecute any alcohol or drug abuse patient.[facility]In the event this information is protected by the Federal Confidentiality of Alcohol and Drug Abuse Patient Records regulations: The Federal rules restrict any use of the information to criminally investigate or prosecute any alcohol or drug abuse patient.[facility]In the event this information is protected by the Federal Confidentiality of Alcohol and Drug Abuse Patient Records regulations: The Federal rules restrict any use of the information to criminally investigate or prosecute any alcohol or drug abuse patient.[facility]In the event this information is protected by the Federal Confidentiality of Alcohol and Drug Abuse Patient Records regulations: The Federal rules restrict any use of the information to criminally investigate or prosecute any alcohol or drug abuse patient.[facility]In the event this information is protected by the Federal Confidentiality of Alcohol and Drug Abuse Patient Records regulations: The Federal rules restrict any use of the information to criminally investigate or prosecute any alcohol or drug abuse patient.[facility]In the event this information is protected by the Federal Confidentiality of Alcohol and Drug Abuse Patient Records regulations: The Federal rules restrict any use of the information to criminally investigate or prosecute any alcohol or drug abuse patient.[facility]In the event this information is protected by the Federal Confidentiality of Alcohol and Drug Abuse Patient Records regulations: The Federal rules restrict any use of the information to criminally investigate or prosecute any alcohol or drug abuse patient.[facility]In the event this information is protected by the Federal Confidentiality of Alcohol and Drug Abuse Patient Records regulations: The Federal rules restrict any use of the information to criminally investigate or prosecute any alcohol or drug abuse patient.[facility]In the event this information is protected by the Federal Confidentiality of Alcohol and Drug Abuse Patient Records regulations: The Federal rules restrict any use of the information to criminally investigate or prosecute any alcohol or drug abuse patient.[facility]In the event this information is protected by the Federal Confidentiality of Alcohol and Drug Abuse Patient Records regulations: The Federal rules restrict any use of the information to criminally investigate or prosecute any alcohol or drug abuse patient.[facility]In the event this information is protected by the Federal Confidentiality of Alcohol and Drug Abuse Patient Records regulations: The Federal rules restrict any use of the information to criminally investigate or prosecute any alcohol or drug abuse patient.[facility]In the event this information is protected by the Federal Confidentiality of Alcohol and Drug Abuse Patient Records regulations: The Federal rules restrict any use of the information to criminally investigate or prosecute any alcohol or drug abuse patient.[facility]In the event this information is protected by the Federal Confidentiality of Alcohol and Drug Abuse Patient Records regulations: The Federal rules restrict any use of the information to criminally investigate or prosecute any alcohol or drug abuse patient.[facility]In the event this information is protected by the Federal Confidentiality of Alcohol and Drug Abuse Patient Records regulations: The Federal rules restrict any use of the information to criminally investigate or prosecute any alcohol or drug abuse patient.[facility]In the event this information is protected by the Federal Confidentiality of Alcohol and Drug Abuse Patient Records regulations: The Federal rules restrict any use of the information to criminally investigate or prosecute any alcohol or drug abuse patient.[facility]In the event this information is protected by the Federal Confidentiality of Alcohol and Drug Abuse Patient Records regulations: The Federal rules restrict any use of the information to criminally investigate or prosecute any alcohol or drug abuse patient.[facility]In the event this information is protected by the Federal Confidentiality of Alcohol and Drug Abuse Patient Records regulations: The Federal rules restrict any use of the information to criminally investigate or prosecute any alcohol or drug abuse patient.[facility]In the event this information is protected by the Federal Confidentiality of Alcohol and Drug Abuse Patient Records regulations: The Federal rules restrict any use of the information to criminally investigate or prosecute any alcohol or drug abuse patient.[facility]In the event this information is protected by the Federal Confidentiality of Alcohol and Drug Abuse Patient Records regulations: The Federal rules restrict any use of the information to criminally investigate or prosecute any alcohol or drug abuse patient.[facility]In the event this information is protected by the Federal Confidentiality of Alcohol and Drug Abuse Patient Records regulations: The Federal rules restrict any use of the information to criminally investigate or prosecute any alcohol or drug abuse patient.[facility]In the event this information is protected by the Federal Confidentiality of Alcohol and Drug Abuse Patient Records regulations: The Federal rules restrict any use of the information to criminally investigate or prosecute any alcohol or drug abuse patient.[facility]In the event this information is protected by the Federal Confidentiality of Alcohol and Drug Abuse Patient Records regulations: The Federal rules restrict any use of the information to criminally investigate or prosecute any alcohol or drug abuse patient.[facility]In the event this information is protected by the Federal Confidentiality of Alcohol and Drug Abuse Patient Records regulations: The Federal rules restrict any use of the information to criminally investigate or prosecute any alcohol or drug abuse patient.[facility]In the event this information is protected by the Federal Confidentiality of Alcohol and Drug Abuse Patient Records regulations: The Federal rules restrict any use of the information to criminally investigate or prosecute any alcohol or drug abuse patient.[facility]In the event this information is protected by the Federal Confidentiality of Alcohol and Drug Abuse Patient Records regulations: The Federal rules restrict any use of the information to criminally investigate or prosecute any alcohol or drug abuse patient.[facility]In the event this information is protected by the Federal Confidentiality of Alcohol and Drug Abuse Patient Records regulations: The Federal rules restrict any use of the information to criminally investigate or prosecute any alcohol or drug abuse patient.[facility]In the event this information is protected by the Federal Confidentiality of Alcohol and Drug Abuse Patient Records regulations: The Federal rules restrict any use of the information to criminally investigate or prosecute any alcohol or drug abuse patient.[facility] FOR RECORDS PERTAINING TO PATIENTS WHO ARE OR HAVE BEEN ENROLLED IN A CHEMICAL DEPENDENCY/SUBSTANCEABUSE PROGRAM, SOME INFORMATION MAY BE OMITTED. This clinical summary was aggregated from multiple sources. Caution should be exercised in using it in the provision of clinical care. This summary normalizes information from multiple sources, and as a consequence, information in this document may materially change the coding, format and clinical context of patient data. In addition, data may be omitted in some cases. CLINICAL DECISIONS SHOULD BE BASED ON THE PRIMARY CLINICAL RECORDS. [facility] provides no warranty or guarantee of the accuracy or completeness of information in this document.
--- NOTE | 2024-12-24 19:55 | ED_ITS ---
HPI HPI - Head Injury General Chief complaint: Head Injury Stated complaint: fall, laceration on head Time Seen by Provider: 12/24/24 19:26 Source: patient Mode of arrival: walk-in Limitations: no limitations History of Present Illness HPI Narrative: This 74-year-old male who is not on blood thinners presents for evaluation of a forehead laceration and head injury. The patient was planting a interiano yesterday and was using a cart to move the interiano when cart went out from under him and he fell striking his head on the pavement. He sustained approximately 2.5 cm laceration to the mid forehead area. He also has a superficial abrasion above the laceration and superficial abrasion to the left elbow area. He is not certain if he may have passed out. He denies any chest pain or shortness of breath. He was treating his laceration with topical antibiotic ointment but it has been draining and he is concerned that is going to get infected. He denies any neck pain. He has no focal neurologic symptoms. Related Data Home Medications ?Medication ?Instructions ?Recorded ?Confirmed allopurinol 300 mg tablet mg 12/24/24 atorvastatin 20 mg tablet mg 12/24/24 bupropion HCl 300 mg 24 hr tablet, mg PO 12/24/24 extended release cyanocobalamin (vitamin B-12) mcg 12/24/24 1,000 mcg tablet doxycycline hyclate 100 mg capsule mg 12/24/24 levothyroxine 125 mcg tablet mcg 12/24/24 lisinopril 10 mg tablet mg 12/24/24 metformin 1,000 mg tablet mg 12/24/24 pantoprazole 40 mg tablet,delayed mg PO 12/24/24 release prednisolone acetate 1 % eye drp ophthalmic (eye) 12/13 10/09 drops,suspension sitagliptin phosphate 100 mg mg 12/24/24 tablet (Januvia) venlafaxine 150 mg mg PO 12/24/24 capsule,extended release 24 hr Allergies Allergy/AdvReac Type Severity Reaction Status Date / Time amoxicillin Allergy Abdominal Verified 12/24/24 19:24 Pain clavulanic acid (From Allergy Abdominal Verified 12/24/24 19:24 Augmentin) Pain Review of Systems ROS Status of ROS 10 or more systems reviewed and unremark able except as noted in history and below PFSH PFSH Social History Little interest or pleasure in doing things: not at all Feeling down, depressed, or hopeless: not at all Exam Narrative Exam Narrative: Vital signs and Nursing Notes reviewed: Patient is afebrile, he is mildly tachycardic with a pulse of 111, blood pressure is elevated 157/97, he is not hypoxic with pulse ox of 99% on room air General: Awake, alert, oriented, no acute distress, lying comfortably on the stretcher-GCS 15 HEENT: Normocephalic, 2.5 cm elliptical laceration to the mid forehead just above the nasal bones, no active bleeding. Wound edges are mildly irregular. There is also an abrasion above this. Pupils are equal and reactive. Patient is wearing hearing aids. No dental injury or facial injury in addition to the laceration on the patient's forehead appreciated. Neck: Supple, no midline bony vertebral tenderness or step-off Chest: Lungs are clear to auscultation with good air entry, there is no wheezing rhonchi or rales appreciated no accessory muscle use, patient is speaking in complete sentences-no chest wall tenderness to palpation CVS: Regular rate and rhythm S1-S2, no murmurs rubs or gallops, pulses are brisk and equal bilaterally ABD: Soft, nondistended, nontender, no rebound guarding or rigidity, bowel sounds are normal, no pulsatile masses appreciated Extremities: Moving all extremities, there is an abrasion to the left elbow area otherwise there is no tenderness to the shoulder girdles, clavicles, upper or lower arms, hips or lower extremities. There is no midline bony vertebral cervical thoracic or lumbar tenderness Skin: Abrasion to left forearm/elbow area no sign of cellulitis Neuro: No focal deficits Constitutional Vital Signs, click to edit/add: Last Vital Signs Temp 98.3 F 12/24/24 19:16 Pulse 111 H 12/24/24 19:16 Resp 18 12/24/24 19:16 BP 157/97 H 12/24/24 19:16 Pulse Ox 99 12/24/24 19:16 O2 Del Method Room Air 12/24/24 19:16 Course Vital Signs Vital signs: Vital Signs Temperature 98.3 F 12/24/24 19:16 Pulse Rate 111 H 12/24/24 19:16 Respiratory Rate 18 12/24/24 19:16 Blood Pressure 157/97 H 12/24/24 19:16 Pulse Oximetry 99 12/24/24 19:16 Oxygen Delivery Method Room Air 12/24/24 19:16 Temperature 98.3 F 12/24/24 19:16 Pulse Rate 111 H 12/24/24 19:16 Respiratory Rate 18 12/24/24 19:16 Blood Pressure 157/97 H 12/24/24 19:16 Pulse Oximetry 99 12/24/24 19:16 Oxygen Delivery Method Room Air 12/24/24 19:16 MDM - Head Injury MDM Narrative Medical decision making narrative: This 74-year-old male presents for evaluation of a facial laceration that he sustained yesterday while trying to plant some bushes at home. He sustained approximately 2 cm laceration to the mid forehead area with an abrasion above this area and some abrasions on the left forearm and elbow area. He is not certain but thinks he may have had brief loss of consciousness. His neuroexam is normal. He has no neck or back pain. CT scan of the brain was reviewed by radiology and shows mild to moderate generalized brain volume loss, mild chronic small vessel ischemic type changes in the white matter, no acute intracranial hemorrhage mass effect or edema. Partial opacification of the mastoid air cells right greater than left, paranasal sinuses are clear. There is soft tissue swelling overlying the frontal bone at the midline and overlying the left nasal bone consistent with a posttraumatic edema. There is a nondisplaced left nasal bone fracture globes are intact there is no foreign body and TMJs are intact. The results of the CT scan were discussed with him. His tetanus was updated. His laceration was closed with nine 4-0 Ethilon sutures. He remains hemodynamically and neurologically stable in the emergency department and was discharged home with head trauma instructions and recommendation for close follow-up with his family physician and suture removal in the next 5 to 7 days. Discharge Plan Discharge Chief Complaint: Head Injury Clinical Impression: Closed head injury, Facial laceration Patient Disposition: Home, Self-Care Time of Disposition Decision: 21:16 Condition: Good Prescriptions / Home Meds: No Action doxycycline hyclate 100 mg capsule atorvastatin 20 mg tablet venlafaxine 150 mg capsule,extended release 24hr PO cyanocobalamin (vitamin B-12) 1,000 mcg tablet prednisolone acetate 1 % drops,suspension OPHTHALMIC (EYE) pantoprazole 40 mg tablet,delayed release (DR/EC) PO metformin 1,000 mg tablet levothyroxine 125 mcg tablet lisinopril 10 mg tablet allopurinol 300 mg tablet bupropion HCl 300 mg tablet extended release 24 hr PO Januvia 100 mg tablet Print Language: Kittitian Instructions: Care For Your Stitches (ED), Laceration (ED), Head Injury (ED) Additional Instructions: Sutures can removed in 5 to 7 days. Please use bacitracin topically over the suture site to help with healing and decrease scar formation return the emergency department for severe headache, weakness numbness tingling, any unusual neurologic symptoms or any concerns. Referrals: Ankit Bundy MD [Primary Care Provider, Family Practice] - 1 week Procedures ED Procedure Instructions Procedures Procedures: Procedure note: Laceration repair the laceration on the patient's forehead was cleaned with Hibiclens and water and infiltrated with 1% lidocaine. When anesthesia was obtained 9, 4-0 Ethilon sutures were placed into the laceration with good wound edge approximation. Patient tolerated procedure well.
[2024-12-24] MEDS: LIDOCAINE HCL 1% 100 MG/10 ML MDV INJ (20:00)
--- NOTE | 2024-12-24 20:20 | PC.NURSE ---
Dr. Mcclain at bedside for suture repair at this time. pt tolerating as expected.
[2024-12-24] MEDS: ADACEL DIPH,PERTUSS(ACELL),TET VAC/PF 0.5 ML ADULT SYRINGE IM (21:08)
[2024-12-24] MEDS: BACITRACIN OINTMENT 28.4 GM TUBE 1 APPLIC TOPICAL (21:26)
[2024-12-24 21:27] VITALS: PULSE 69; O2SAT 96
== END 2024-12-24 21:29 | disposition home or self-care (01) ==
PROVIDERS: Emergency Provider Emergency Medicine; PCP Family Medicine
DX: S01.81XA Laceration without foreign body of other part of head, initial encounter (principal); W01.198A Fall on same level from slipping, tripping and stumbling with subsequent striking against other object, initial encounter; W18.31XA Fall on same level due to stepping on an object, initial encounter; Y93.H2 Activity, gardening and landscaping; S50.312A Abrasion of left elbow, initial encounter; S02.2XXA Fracture of nasal bones, initial encounter for closed fracture; S50.812A Abrasion of left forearm, initial encounter; Z23 Encounter for immunization
CPT/HCPCS: 12011; 70450; 90471; 90715; 99285

== ENCOUNTER 2025-03-19 15:16 | Outpatient (OUT) | payer MEDICARE, SELFPAY ==
--- OUTSIDE RECORDS SUMMARY | 2025-03-19 15:21 | XMS_ITS | Encounter Summary ---
Author Organization [facility] Address [address] [place] [address] Care Team Providers Care Daycare Teacher Name Role Phone William King MD Unavailable [phone] William King MD Primary Care Provider [phone] Dina Ortiz MD Unavailable Ankit Bundy MD Primary Care Provider [phone] Source Comments In the event this information is protected by the Federal Confidentiality of Alcohol and Drug AbusePatient Records regulations: The Federal rules restrict any use of the information to criminally investigate or prosecute any alcohol or drug abuse patient.[facility] Encounter Details Date Type Department Care Team (Late st Contact Info) Description 12/31/2020 Patient Msg Internal Medicine [facility] [address] [place] [address] Broderick Martinez MD [address] [place] [address] updates Social History Tobacco Use Types Packs/Day Years Used Date Smoking Tobacco: Never Smokeless Tobacco: Never Alcohol Use Standard Drinks/Week Comments Not Asked 0 (1 standard drink = 0.6 oz pur e alcohol) Social Connection and Isolat ion Panel [NHANES] Answer Date Recorded In a typical week, how many times do you talk on the phone with family, friends, or neighbors? Twice a week 12/29/2020 How often do you get togethe r with friends or relatives? Never 12/29/2020 How often do you attend chur or uatsdin services? More than 4 times per year 12/29/2020 Do you belong to any clubs o r organizations such as rastafarian groups, unions, fraternal or athletic groups, or school groups? Yes 12/29/2020 How often do you attend meet ings of the clubs or organizations you belong to? 1 to 4 times per year 12/29/2020 Are you , , di vorced, , never , or living with a partner? 12/29/2020 AUDIT-C Answer Date Recorded Q1: How often do you have a drink containing alc ohol? Never 12/29/2020 Q2: How many drinks containi ng alcohol do you have on a typical day when you are drinking? Patient declined 12/29/2020 Q3: How often do you have si x or more drinks on one occasion? Never 12/29/2020 Overall Financial Resource Strain (CARDIA) Answe r Date Recorded How hard is it for you to pa y for the very basics like food, housing, medical care, and heating? Not hard at all 12/29/2020 PHQ-2 Answer Date Recorded PHQ-2 score 6 12/29/2020 [facility] - Occupational Stress Questionnaire Answer Date Recorded Do you feel stress - tense, restless, nervous, or anxious, or unable to sleep at night because your mind is troubled all the time - these days? Very much 12/29/2020 Exercise Vital Sign Answer Date Recorde d On average, how many days pe r week do you engage in moderate to strenuous exercise (like a brisk walk)? 0 days 12/29/2020 On average, how many minutes do you engage in exercise at this level? 0 min 12/29/2020 Hunger Vital Sign Answer Date Recorded Within the past 12 months, y ou worried that your food would run out before you got the money to buy more. Never true 12/30/19 21 Within the past 12 months, t he food you bought just didn't last and you didn't have money to get more. Never true 12/29/2020 PRAPARE - Transportation Answer Date Re corded In the past 12 months, has l ack of transportation kept you from medical appointments or from getting medications? No 12/13 In the past 12 months, has l ack of transportation kept you from meetings, work, or from getting things needed for daily living? No 12/29/2020 Housing Stability Vital Sign Answer John e Recorded In the last 12 months, was t here a time when you were not able to pay the mortgage or rent on time? No 12/29/2020 Number of Places Lived in the Last Year Not on f ile 12/29/2020 In the last 12 months, was t here a time when you did not have a steady place to sleep or slept in a intermediate (including now)? No 12/29/2020 Area Deprivation Index Answer Date Randolph rded National Score (1-100), lower number is lower ri sk Not on file 11/13/2020 State Score (1-10), lower number is lower risk N ot on file 11/13/2020 Data from: https://www.neighborhoodatlas.medicine.[facility].edu/. Last address used for calculation Not on file 11/13/2020 Education Answer Date Recorded What is the highest level of school you have completed or the highest degree you have received? Doctorate 12/29/2020 Sex and Gender Information Value Date Recorded Sex Assigned at Male 11/23/2020 4:58 PM EDT Legal Sex Male 9:23 AM EST Gender Identity Male 11/23/2020 4:58 PM EDT Sexual Orientation Straight 04/21/2021 12 :59 AM EDT COVID-19 Exposure Response Date Recorded In the last month, have you been in contact with someone who was confirmed or suspected to have Coronavirus / COVID-19? No / Unsure 12/30/2020 7:32 AM EDT documented as of this encounter Plan of Treatment Upcoming Encounters Date Type Department Care Team (Late st Contact Info) Description 04/23/2025 9:15 AM EDT Office Visit Urology [address] [address] Alex Ricks MD [address] [place] [address] Msg left to reschedule apt - 05/14/2025 11:00 AM EDT Office Visit Urology [address] [address] Alex Ricks MD [address] [place] [address] 1 month follow up check infected innerstem 05/20/2025 11:40 AM EDT [facility] [address] [place], [place] [id number] Broderick Martinez MD [address] [place] [address] 6 month follow up documented as of this encounter Visit Diagnoses Not on filedocumented in this encounter Care Teams Daycare Teacher Relationship Specialty Start Date End Date William King MD [address] [place] [address] PCP - General Internal Medicine 06/08/21 02/06/24 Ankit Bundy MD [address] [place] [address] PCP - General Family Medicine 02/07/24 William King MD [address] [place] [id number] Referring Internal Medicine 06/08/21 02/06/24 Dina Ortiz MD [address] [place] [place] [address] Referring Urology 09/14/23 documented as of this encounter
--- OUTSIDE RECORDS SUMMARY | 2025-03-19 15:21 | XMS_ITS | Encounter Summary ---
Author Organization [facility] Address [address] [place] [address] Care Team Providers Care Business Intelligence Director Name Role Phone William King MD Unavailable [phone] William King MD Primary Care Provider [phone] Dina Ortiz MD Unavailable Ankit Bundy MD Primary Care Provider [phone] Source Comments In the event this information is protected by the Federal Confidentiality of Alcohol and Drug AbusePatient Records regulations: The Federal rules restrict any use of the information to criminally investigate or prosecute any alcohol or drug abuse patient.[facility] Encounter Details Date Type Department Care Team (Late st Contact Info) Description 12/31/2020 Patient Msg Internal Medicine [facility] [place] [address] Provider, [facility] Upcoming Appointment Social History Tobacco Use Types Packs/Day Years [...] 12/29/2020 How often do you attend chur ch or christian services? More than 4 times per year 12/29/2020 Do you belong to any clubs o r organizations such as spiritism groups, unions, fraternal or athletic groups, or [...] Answer Date Recorded PHQ-2 score 6 12/29/2020 [facility] Answer Date Recorded [...] place to sleep or slept in a senior care (including now)? No 12/29/2020 Area Deprivation Index Answer Date Randolph rded National Score (1-100), lower number is lower ri sk Not on file 11/13/2020 State Score (1-10), lower number is lower risk N ot on file 11/13/2020 Data from: https://www.neighborhoodatlas.medicine.[facility].edu/. Last address used for calculation Not on [...] 9:15 AM EDT Office Visit Urology [address] [place] [address] Alex Ricks MD [address] [place] [address] Msg left to reschedule apt - 05/14/2025 11:00 AM EDT Office Visit Urology [address] [address] Alex Ricks MD [address] [place], [place] [id number] 1 month follow up check infected innerstem 05/20/2025 11:40 AM EDT [facility] [address] [place], [place] [phone] Broderick Martinez MD [address] [place], [place] [id number] 6 month follow up documented as of this encounter Visit Diagnoses Not on filedocumented in this encounter Care Teams Business Intelligence Director Relationship Specialty Start Date End Date William King MD [address] [place] [id number] PCP - General Internal Medicine 06/08/21 02/06/24 Ankit Bundy MD [address] [place] [address] PCP - General Family Medicine 02/07/24 William King MD [address] [place] [address] Referring Internal Medicine 06/08/21 02/06/24 Dina Ortiz MD [address] [facility] [address] [place], [place] [phone] Referring Urology 09/14/23 documented as of this encounter
--- OUTSIDE RECORDS SUMMARY | 2025-03-19 15:21 | XMS_ITS | Encounter Summary ---
Author Organization [facility] Address [address] [place] [address] Care Team Providers Care Prosthodontist/Owner Name Role Phone William King MD Unavailable [phone] William King MD Primary Care Provider [phone] Dina Ortiz MD Unavailable Ankit Bundy MD Primary Care Provider [phone] Source Comments In the event this information is protected by the Federal Confidentiality of Alcohol and Drug AbusePatient Records regulations: The Federal rules restrict any use of the information to criminally investigate or prosecute any alcohol or drug abuse patient.[facility] Encounter Details Date Type Department Care Team (Late st Contact Info) Description 12/01/2020 Patient Msg Internal Medicine Main [facility] [address] [place] [address] Broderick Martinez MD [address] [place] [address] Sleep study Social History Tobacco Use Types Packs/Day Years Used Date Smoking Tobacco: Never Smokeless Tobacco: Never Alcohol Use Standard Drinks/Week Comments Not Asked 0 (1 standard drink = 0.6 oz pur e alcohol) Area Deprivation Index Answer Date Randolph rded National Score (1-100), lower number is lower ri sk Not on file 11/13/2020 State Score (1-10), lower number is lower risk N ot on file 11/13/2020 Data from: https://www.neighborhoodatlas.medicine.[facility].edu/. Last address used for calculation Not on file 11/13/2020 Sex and Gender Information Value Date Recorded [...] have Coronavirus / COVID-19? No / Unsure 11/26/2020 8:37 PM EDT documented as of this encounter Plan of Treatment Upcoming Encounters Date Type Department Care Team (Late st Contact Info) Description 04/23/2025 9:15 AM EDT Office Visit Urology [address] [place] [phone] Alex Ricks MD [address] [place] [address] Msg left to reschedule apt - 05/14/2025 11:00 AM EDT Office Visit Urology [address] [address] Alex Ricks MD [address] [address] 1 month follow up check infected innerstem 05/20/2025 11:40 AM EDT [facility] [address] [place], [place] [phone] Broderick Martinez MD [address] [place], [place] [phone] 6 month follow up documented as of this encounter Visit Diagnoses Not on filedocumented in this encounter Care Teams Prosthodontist/Owner Relationship Specialty Start Date End Date William King MD [address] [place] [address] PCP - General Internal Medicine 06/08/21 02/06/24 Ankit Bundy MD [address] [place] [address] PCP - General Family Medicine 02/07/24 William King MD [address] [place] [address] Referring Internal Medicine 06/08/21 02/06/24 Dina Ortiz MD [address] [address] Referring Urology 09/14/23 documented as of this encounter
--- OUTSIDE RECORDS SUMMARY | 2025-03-19 15:21 | XMS_ITS | Encounter Summary ---
Author Organization [facility] Address [address] [place] [address] Care Team Providers Care Curriculum Manager Name Role Phone William King MD Unavailable [phone] William King MD Primary Care Provider [phone] Dina Ortiz MD Unavailable Ankit Bundy MD Primary Care Provider [phone] Source Comments In the event this information is protected by the Federal Confidentiality of Alcohol and Drug AbusePatient Records regulations: The Federal rules restrict any use of the information to criminally investigate or prosecute any alcohol or drug abuse patient.[facility] Encounter Details Date Type Department Care Team (Late st Contact Info) Description 12/01/2020 Patient Msg Internal Medicine Main [facility] [address] [place] [address] Broderick Martinez MD [address] [place] [address] Good news Social History Tobacco Use Types Packs/Day Years [...] N ot on file 11/13/2020 Data from: https://www.neighborhoodatlas.medicine.[facility].edu/. Last address used for calculation [...] 9:15 AM EDT Office Visit Urology [address] [place] [phone] Alex Ricks MD [address] [place] [address] Msg left to reschedule apt - 05/14/2025 11:00 AM EDT Office Visit Urology [address] [address] Alex Ricks MD [address] [address] 1 month follow up check infected innerstem 05/20/2025 11:40 AM EDT [facility] [address] [place], [place] [phone] Broderick Martinez MD [address] [place], [place] [phone] 6 month follow up documented as of this encounter Visit Diagnoses Not on filedocumented in this encounter Care Teams Curriculum Manager Relationship Specialty Start Date End Date William King MD [address] [address] PCP - General Internal Medicine 06/08/21 02/06/24 Ankit Bundy MD [address] [place] [address] PCP - General Family Medicine 02/07/24 William King MD [address] [place] [address] Referring Internal Medicine 06/08/21 02/06/24 Dina Ortiz MD [address] [place] [address] Referring Urology 09/14/23 documented as of this encounter
--- OUTSIDE RECORDS SUMMARY | 2025-03-19 15:21 | XMS_ITS | Encounter Summary ---
Author Organization [facility] Address [address] [place] [address] Care Team Providers Care Technical Program Manager Name Role Phone William King MD Unavailable [phone] William King MD Primary Care Provider [phone] Dina Ortiz MD Unavailable Ankit Bundy MD Primary Care Provider [phone] Source Comments In the event this information is protected by the Federal Confidentiality of Alcohol and Drug AbusePatient Records regulations: The Federal rules restrict any use of the information to criminally investigate or prosecute any alcohol or drug abuse patient.[facility] Encounter Details Date Type Department Care Team (Late st Contact Info) Description 12/30/2020 Patient Msg Neurology [address] [place] [address] Vera Burt MD [address] [place] [address] your visit summary Social History Tobacco Use Types Packs/Day Years [...] How often do you attend chur or episcopal services? More than 4 times per year 12/29/2020 Do you belong to any clubs o r organizations such as bahai groups, unions, fraternal or athletic groups, or [...] Answer Date Recorded PHQ-2 score 6 12/29/2020 [facility] - Occupational Stress [...] place to sleep or slept in a [place] health care facility (including now)? No 12/29/2020 Area Deprivation Index Answer Date Randolph rded National Score (1-100), lower number is lower ri sk Not on file 11/13/2020 State Score (1-10), lower number is lower risk N ot on file 11/13/2020 Data from: https://www.neighborhoodatlas.medicine.[facility].edu/. Last address used for calculation Not [...] 9:15 AM EDT Office Visit Urology [address] [address] Alex Ricks MD [address] [place] [address] Msg left to reschedule - 05/14/2025 11:00 AM EDT Office Visit Urology [address] [address] Alex Ricks MD [address] [facility] [address] [place] [address] 1 month follow up check infected innerstem 05/20/2025 11:40 AM EDT [facility]SULT MAIN [address] [place] [address] Broderick Martinez MD [address] [place] [address] 6 month follow up documented as of this encounter Visit Diagnoses Not on filedocumented in this encounter Care Teams Technical Program Manager Relationship Specialty Start Date End Date William King MD [address] [place] [id number] PCP - General Internal Medicine 06/08/21 02/06/24 Ankit Bundy MD [address] [place] [address] PCP - General Family Medicine 02/07/24 William King MD [address] [place] [id number] Referring Internal Medicine 06/08/21 02/06/24 Dina Ortiz MD [address] [place], [place] [address] Referring Urology 09/14/23 documented as of this encounter
--- OUTSIDE RECORDS SUMMARY | 2025-03-19 15:22 | XMS_ITS | Encounter Summary ---
Author Organization [facility] Address [address] [place] [address] Care Team Providers Care Afternoon Babysitter Name Role Phone William King MD Unavailable [phone] William King MD Primary Care Provider [phone] Dina Ortiz MD Unavailable Ankit Bundy MD Primary Care Provider [phone] Source Comments In the event this information is protected by the Federal Confidentiality of Alcohol and Drug AbusePatient Records regulations: The Federal rules restrict any use of the information to criminally investigate or prosecute any alcohol or drug abuse patient.[facility] Encounter Details Date Type Department Care Team (Late st Contact Info) Description 05/27/2021 Get Medical Advice Internal Medicine [facility] [address] [place] [address] Broderick Martinez MD [address] [place] [address] RE: Non-Urgent Medical Question Social History Tobacco Use Types Packs/Day Years [...] How often do you attend chur or christian services? More than 4 times per year 12/29/2020 Do you belong to any clubs o r organizations such as evangelical groups, unions, fraternal or athletic groups, or [...] Answer Date Recorded PHQ-2 score 6 12/29/2020 [facility] Occupat ional Health - Occupational Stress [...] place to sleep or slept in a longterm (including now)? No 12/29/2020 Area Deprivation Index Answer Date Randolph rded National Score (1-100), lower number is lower ri sk Not on file 11/13/2020 State Score (1-10), lower number is lower risk N ot on file 11/13/2020 Data from: https://www.neighborhoodatlas.medicine.[facility].edu/. Last address used for calculation Not on [...] Orientation Straight 04/21/2021 12 :59 AM EDT documented as of this encounter Plan of Treatment Upcoming Encounters Date Type Department Care Team (Late st Contact Info) Description 04/23/2025 9:15 AM EDT Office Visit Urology [address] [address] Alex Ricks MD [address] [place] [address] Msg left to reschedule apt - 05/14/2025 11:00 AM EDT Office Visit Urology [address] [place] [address] Alex Ricks MD [address] [place] [address] 1 month follow up check infected innerstem 05/20/2025 11:40 AM EDT [facility]ATIONAL [facility] MAIN [address] [place], [place] [phone] Broderick Martinez MD [address] [place] [address] 6 month follow up documented as of this encounter Visit Diagnoses Not on filedocumented in this encounter Care Teams Afternoon Babysitter Relationship Specialty Start Date End Date William King MD [address] [place] [address] PCP - General Internal Medicine 06/08/21 02/06/24 Ankit Bundy MD [address] [place] [address] PCP - General Family Medicine 02/07/24 William King MD [address] [place] [address] Referring Internal Medicine 06/08/21 02/06/24 Dina Ortiz MD [address] [place] [address] Referring Urology 09/14/23 documented as of this encounter
--- OUTSIDE RECORDS SUMMARY | 2025-03-19 15:22 | XMS_ITS | Encounter Summary ---
Author Organization [facility] [employer] Address [address] [place] [address] Care Team Providers Care Wall Mirror Department Supervisor Name Role Phone William King MD Primary Care Provider Tee Carpenter MD Unavailable Ankit Bundy MD Unavailable Antwan Chavez MD Unavailable [phone] Ankit Bundy MD Primary Care Provider [phone] Reason for Visit * Reason Onset Date Comments Appointment 04/12/2019 Encounter Details Date Type Department Care Team (Late st Contact Info) Description 04/12/2019 Telephone Division of [facility] Surgery at [facility] [address] [place] [address] Antwan Chavez MD [address] [place] [address] Appointment Social History Tobacco Use Types Packs/Day Years Used Date Smoking Tobacco: Never Smokeless Tobacco: Never Alcohol Use Standard Drinks/Week Comments Yes 42 (1 standard drink = 0.6 oz pu re alcohol) 6-pack per day AUDIT-C Answer Date Recorded Frequency of Alcohol Consumption 4 or more times a week 12/19/2018 Average Number of Drinks 5 or 6 019 Frequency of Binge Drinking Not on file 02/2019 Sex and Gender Information Value Date Recorded Sex Assigned at Not on file Legal Sex Male 1:50 PM EDT Gender Identity Male 06/08/2021 1:21 PM EDT Sexual Orientation Straight 06/08/2021 1: 21 PM EDT documented as of this encounter Functional Status * Are you deaf or do you have serious difficulty hearing? Answer Date of Assessment Author Yes 01/18/2019 10:44 AM STEPHANET Jarvis Hernandez RN * Are you blind or do you have serious difficulty seeing, even when wearing glasses? Answer Date of Assessment Author No 01/18/2019 10:44 AM EDT Jarvis Hernandez RN * Do you have serious difficulty walking or climbing stairs (5 years or older)? Answer Date of Assessment Author No 01/18/2019 10:44 AM EDT Jarvis Hernandez RN * Do you have difficulty dressing or bathing (5 yrs or older)? Answer Date of Assessment Author No 01/18/2019 10:44 AM STEPHANET Jarvis Hernandez RN * Because of a physical, mental, or emotional condition, do you have difficulty doing errands alone such as visiting a doctor's office or shopping (5 yrs or older)? Answer Date of Assessment Author No 01/18/2019 10:44 AM STEPHANET Jarvis Hernandez RN documented as of this encounter Mental Status * Because of a physical, mental, or emotional condition, do you have serious difficulty concentrating, remembering, or making decisions (5 yrs or older)? Answer Entry Date Author No 01/18/2019 10:44 AM Jarvis Silveira RN documented in this encounter Miscellaneous Notes * Telephone Encounter - Dexter Britton - 04/12/2019 12:16 PM EDT Scott pt Patient called to r/s xray and OV from 04/19. This appt was with Laura (Dr. Chavez is out 04/19). Patient rescheduled to 04/30 and requested morning. I put patient on Dr. Chavez's schedule for that day since he's here. Please let me know if they need flipped to Laura's schedule again or if that' okay. Thanks! documented in this encounter Plan of Treatment Not on file documented as of this encounter Visit Diagnoses Not on filedocumented in this encounter Additional Health Concerns Infection Onset Date Last Indicated Resolved Time COVID-19 Suspected 08/02/2021 08/02/2021 1 2:39 PM EST COVID-19 Suspected 08/11/2021 08/11/2021 1 1:33 PM EST COVID-19 Suspected 08/24/2021 08/24/2021 2 3:54 PM EST COVID-19 Comment:Patient now clear from COVID-19 isolation. Tested positive on 08/24/2021 with screening PCR. Later developed mildly worsening chronic cough on 08/25. Symptoms have resolved. Rhys Escalante MD Physical Medicine & Rehabilitation Pager: Flag removed 09/04/2020 by Dilia Wolff DNP, RN, [facility] 08/24/2021 08/24/2021 09/04/2021 12:50 P M EST COVID-19 Suspected 09/24/2021 09/24/2021 2 2:05 AM EST documented as of this encounter Care Teams Wall Mirror Department Supervisor Relationship Specialty Start Date End Date William King MD PCP - General Internal Medicine 11/23/18 09/23/21 Ankit Bundy MD [address] [place] [address] PCP - General Family Medicine 09/24/21 Tee Carpenter MD Orthopaedic Surgery 11/23/18 Ankit Bundy MD [address] [place] [address] Family Physician Family Medicine 08/04/21 Antwan Chavez MD [address] [place] [address] Neurosurgeon Neurological Surgery 08/05/21 documented as of this encounter
--- OUTSIDE RECORDS SUMMARY | 2025-03-19 15:22 | XMS_ITS | Encounter Summary ---
Author Organization [facility] Address [facility] [place] [address] Care Team Providers Care Church Administrator Name Role Phone Dina Ortiz MD Unavailable Ankit Bundy MD Primary Care Provider [phone] Source Comments In the event this information is protected by the Federal Confidentiality of Alcohol and Drug AbusePatient Records regulations: The Federal rules restrict any use of the information to criminally investigate or prosecute any alcohol or drug abuse patient.[facility] Encounter Details Date Type Department Care Team (Late st Contact Info) Description 02/17/2024 Get Medical Advice Urology [address] [address] Alex Ricks MD [address] [place] [address] Photo's of apparatus for back Social History Tobacco Use Types Packs/Day Years Used Date Smoking Tobacco: Never Smokeless Tobacco: Never Alcohol Use Standard Drinks/Week Comments Yes 0 (1 standard drink = 0.6 oz pur e alcohol) 2x/week Social Connection and Isolat ion Panel [NHANES] Answer Date Recorded In a typical week, how many times do you talk on the phone with family, friends, or neighbors? Twice a week 12/29/2020 How often do you get togethe r with friends or relatives? Never 12/29/2020 How often do you attend chur ch or mosque services? More than 4 times per year 12/29/2020 Do you belong to any clubs o r organizations such as baptist groups, unions, fraternal or athletic groups, or [...] Answer Date Recorded PHQ-2 score 6 12/29/2020 [facility] Answer Date [...] place to sleep or slept in a assisted (including now)? No 12/29/2020 Area Deprivation Index Answer Date Randolph rded National Score (1-100), lower number is lower ri sk 63 09/21/2023 State Score (1-10), lower number is lower risk 4 09/21/2023 Data from: https://www.neighborhoodatlas.medicine.[facility].edu/. Last address used for calculation [address] 09/21/2023 Education Answer Date Recorded What is the [...] 9:15 AM EDT Office Visit Urology [address] [place] [id number] Alex Ricks MD [address] [place] [address] Msg left to reschedule apt - 05/14/2025 11:00 AM EDT Office Visit Urology [address] [address] Alex Ricks MD [address] [place] [address] 1 month follow up check infected innerstem 05/20/2025 11:40 AM EDT [facility] INTM [facility]SULT MAIN [address] [place], [place] [id number] Broderick Martinez MD [address] [place], [place] [address] 6 month follow up documented as of this encounter Visit Diagnoses Not on filedocumented in this encounter Care Teams Church Administrator Relationship Specialty Start Date End Date Ankit Bundy MD [address] [facility] [address] PCP - General Family Medicine 02/07/24 Dina Ortiz MD [address] [facility] [place] [address] Referring Urology 09/14/23 documented as of this encounter
--- OUTSIDE RECORDS SUMMARY | 2025-03-19 15:22 | XMS_ITS | Encounter Summary ---
Author Organization [facility] Address [address] [facility] [address], [address] [place] [address] Care Team Providers Care Test Director Name Role Phone William King MD Primary Care Provider [phone] Reason for Visit * Reason Comments Medication Refill Encounter Details Date Type Department Care Team (Late st Contact Info) Description 09/06/2019 Refill [facility] [address] [place] [address] William King MD [address] [place], [place] [id number] Medication Refill Social History Tobacco Use Types Packs/Day Years Used Date Smoking Tobacco: Never Smokeless Tobacco: Never Alcohol Use Standard Drinks/Week Comments Yes 29.2 (1 standard drink = 0.6 oz pure alcohol) PHQ-2 Answer Date Recorded PHQ-2 Score 0 11/15/2018 Sex and Gender Information Value Date Recorded Sex Assigned at Male 11/28/2019 7:59 PM EDT Legal Sex Male 6:43 PM EST Gender Identity Male 11/28/2019 7:59 PM EDT Sexual Orientation Straight 11/28/2019 7: 59 PM EDT documented as of this encounter Plan of Treatment Not on file documented as of this encounter Visit Diagnoses Not on filedocumented in this encounter Additional Health Concerns Infection Onset Date Last Indicated Resolved Time COVID-19 (Rule Out) 02/14/2020 02/14/2020 02/17/20 20 1:05 AM EDT Assessment Noted Time A fall risk assessment has been complete d for the patient 07/06/2019 9:40 AM EST A Body Mass Index follow-up plan has been documented for the patient 07/06/2019 10:09 AM EST documented as of this encounter Care Teams Test Director Relationship Specialty Start Date End Date William King MD [address] [place] [address] PCP - General 06/09/12 11/08/21 documented as of this encounter
--- OUTSIDE RECORDS SUMMARY | 2025-03-19 15:22 | XMS_ITS | Encounter Summary ---
Author Organization [facility] [employer] Address [address] [place] [address] Care Team Providers Care Ob Tech Name Role Phone William King MD Primary Care Provider [phone] Tee Carpenter MD Unavailable Ankit Bundy MD Unavailable Antwan Chavez MD Unavailable [phone] Ankit Bundy MD Primary Care Provider [phone] Reason for Visit * Reason Onset Date Comments Order Request 02/10/2021 Encounter Details Date Type Department Care Team (Late st Contact Info) Description 02/10/2021 Telephone Division [facility] [address] [place] [address] Antwan Chavez MD [address] [place] [address] Order Request Social History Tobacco Use Types Packs/Day Years [...] Orientation Straight 06/08/2021 1: 21 PM EDT COVID-19 Exposure Response Date Recorded In the last month, have you been in contact with someone who was confirmed or suspected to have Coronavirus / COVID-19? Unable to assess 01/29/2021 5:12 AM EDT documented as of this encounter Functional Status * Are you deaf or do you have serious difficulty hearing? Answer Date of Assessment Author Yes 01/18/2019 10:44 AM Jarvis Silveira RN * Are you blind or do you have serious difficulty seeing, even when wearing glasses? Answer Date of Assessment Author No 01/18/2019 10:44 AM STEPHANET Jarvis Hernanedz RN * Do you have serious difficulty walking or climbing stairs (5 years or older)? Answer Date of Assessment Author No 01/18/2019 10:44 AM Jarvis Silveira RN * Do you have difficulty dressing or bathing (5 yrs or older)? Answer Date of Assessment Author No 01/18/2019 10:44 AM EDT Jarvis Hernandez RN * Because of a physical, mental, or emotional condition, do you have difficulty doing errands alone such as visiting a doctor's office or shopping (5 yrs or older)? Answer Date of Assessment Author No 01/18/2019 10:44 AM Jarvis Silveira RN documented as of this encounter Mental Status * Because of a physical, mental, or emotional condition, do you have serious difficulty concentrating, remembering, or making decisions (5 yrs or older)? Answer Entry Date Author No 01/18/2019 10:44 AM Jarvis Silveira RN documented in this encounter Miscellaneous Notes * Telephone Encounter - Rebekah Lomax RN - 02/10/2021 9:07 AM EDT RN confirmed fax number with facility. Will fax MRI + lab order. Fax confirmation received. To: Recipient at [phone] Subject: Elle MRI + Lab Result: The transmission was successful. Explanation: All Pages Ok Pages Sent: 6 Connect Time: 2 minutes, 5 seconds Transmit Time: 02/10/2021 09:08 Transfer Rate: 36250 Status Code: 0000 Retry Count: 0 Job Id: [id number] Unique Id: [id number] Fax Line: 2 Fax Vertical Roll Operator: [email or web address] * Telephone Encounter - Suresh Luna - 02/10/2021 8:38 AM EDT Elder pt. Patient is getting MRI at [facility] tomorrow. They need an order sent to them as well as an order for creatinine due to it being w/ and w/o contrast. . Thanks! documented in this encounter Plan of Treatment Scheduled Orders Name Type Priority Associated Diagnoses Orde r Schedule CREATININE SERUM Lab Routine Spinal stenosis of lumbar region with neurogenic claudication Expected: 02/10/2021, Expires: 02/10/2022 documented as of this encounter Visit Diagnoses Diagnosis Spinal stenosis of lumbar region with neurogenic claudication- Primary Spinal stenosis, lumbar region, with neurogenic claudication documented in this encounter Additional Health Concerns Infection [...] removed 09/04/2020 by Dilia Wolff DNP, RN, [facility] 08/24/2021 08/24/2021 09/04/2021 12:50 P M EST COVID-19 Suspected 09/24/2021 09/24/2021 2:05 AM EST documented as of this encounter Care Teams Ob Tech Relationship Specialty Start Date End Date William King MD PCP - General Internal Medicine 11/23/18 09/23/21 Ankit Bundy MD [address] [place] [address] PCP - General Family Medicine 09/24/21 Tee Carpenter MD Orthopaedic Surgery 11/23/18 Ankit Bundy MD [address] [place] [address] Family Physician Family Medicine 08/04/21 Antwan Chavez MD [address] [place], [place] [id number] Neurosurgeon Neurological Surgery 08/05/21 documented as of this encounter
--- OUTSIDE RECORDS SUMMARY | 2025-03-19 15:22 | XMS_ITS | Encounter Summary ---
Author Organization [facility] Address [address] [place] [address] Care Team Providers Care Coding Technician Name Role Phone William King MD Unavailable William King MD Primary Care Provider [phone] Dina Oritz MD Unavailable Ankit Bundy MD Primary Care Provider [phone] Source Comments In the event this information is protected by the Federal Confidentiality of Alcohol and Drug AbusePatient Records regulations: The Federal rules restrict any use of the information to criminally investigate or prosecute any alcohol or drug abuse patient.[facility] Encounter Details Date Type Department Care Team (Late st Contact Info) Description 02/25/2021 Get Medical Advice Neurology [address] [place] [address] Vera Burt MD [address] [place] [address] RE: Test Result Question Social History Tobacco Use Types Packs/Day [...] How often do you attend chur or scientologist services? More than 4 times per year 12/29/2020 Do you belong to any clubs o r organizations such as anabaptism groups, unions, fraternal or athletic groups, or [...] Answer Date Recorded PHQ-2 score 6 12/29/2020 [facility] of Occupat ional Health - Occupational Stress [...] place to sleep or slept in a snf (including now)? No 12/29/2020 Area Deprivation Index Answer Date Randolph rded National Score (1-100), lower number is lower ri sk Not on file 11/13/2020 State Score (1-10), lower number is lower risk N ot on file 11/13/2020 Data from: https://www.neighborhoodatlas.medicine.[facility].edu/. Last address used for calculation Not [...] 9:15 AM EDT Office Visit Urology [address] [address] Alex Ricks MD [address] [place] [address] Msg left to reschedule apt - 05/14/2025 11:00 AM EDT Office Visit Urology [address] [address] Alex Ricks MD [address] [place] [address] 1 month follow up check infected innerstem 05/20/2025 11:40 AM EDT [facility] [address] [place], [place] [id number] Broderick Martinez MD [address] [place] [address] 6 month follow up documented as of this encounter Visit Diagnoses Not on filedocumented in this encounter Care Teams Coding Technician Relationship Specialty Start Date End Date William King MD [address] [place] [address] PCP - General Internal Medicine 06/08/21 02/06/24 Ankit Bundy MD [address] [place] [address] PCP - General Family Medicine 02/07/24 William King MD [address] [place] [address] Referring Internal Medicine 06/08/21 02/06/24 Dina Ortiz MD [address] [facility] [place] [address] Referring Urology 09/14/23 documented as of this encounter
--- OUTSIDE RECORDS SUMMARY | 2025-03-19 15:22 | XMS_ITS | Encounter Summary ---
Author Organization [facility] Address [address], [address] [place] [address] Care Team Providers Care Carpet Repairer Name Role Phone William King MD Primary Care Provider [phone] Reason for Visit * Reason Comments Medication Refill Encounter Details Date Type Department Care Team (Late st Contact Info) Description 10/27/2019 Refill Kingston Maya MD [address] [place] [address] [place] [address] Arnaud Jain, STORE HOST - BASEBALL WINDER [address] [place] [address], [facility] [address] Medication Refill Social History Tobacco Use Types [...] documented as of this encounter Care Teams Carpet Repairer Relationship Specialty Start Date End Date William King MD [address] [place] [address] PCP - General 06/09/12 11/08/21 documented as of this encounter
--- OUTSIDE RECORDS SUMMARY | 2025-03-19 15:22 | XMS_ITS | Encounter Summary ---
Author Organization [facility] Address [address] [place] [address] Care Team Providers Care Stock Counter Name Role Phone William King MD Unavailable [phone] William King MD Primary Care Provider [phone] Dina Ortiz MD Unavailable Ankit Bundy MD Primary Care Provider [phone] Source Comments In the event this information is protected by the Federal Confidentiality of Alcohol and Drug AbusePatient Records regulations: The Federal rules restrict any use of the information to criminally investigate or prosecute any alcohol or drug abuse patient.[facility] Encounter Details Date Type Department Care Team (Late st Contact Info) Description 04/06/2021 Get Medical Advice Neurology [address] [place] [address] Halima Nation APRN.PARTS ADMINISTRATOR [address] [place] [address] RE: Upcoming Appointment Question Social History Tobacco Use Types Packs/Day [...] How often do you attend chur or lutheran services? More than 4 times per year 12/29/2020 Do you belong to any clubs o r organizations such as sikh groups, unions, fraternal or athletic groups, or [...] Answer Date Recorded PHQ-2 score 6 12/29/2020 [facility] - [...] place to sleep or slept in a group home (including now)? No 12/29/2020 Area Deprivation Index Answer Date Randolph rded National Score (1-100), lower number is lower ri sk Not on file 11/13/2020 State Score (1-10), lower number is lower risk N ot on file 11/13/2020 Data from: https://www.neighborhoodatlas.medicine.[facility].edu/. Last address used for calculation Not [...] 9:15 AM EDT Office Visit Urology [address] [address] Alex Ricks MD [address] [place] [address] Msg left to reschedule apt - 05/14/2025 11:00 AM EDT Office Visit Urology [address] [place] [address] Alex Ricks MD [address] [place] [address] 1 month follow up check infected innerstem 05/20/2025 11:40 AM EDT [facility] [address] [place], [place] [id number] Broderick Martinez MD [address] [place] [address] 6 month follow up documented as of this encounter Visit Diagnoses Not on filedocumented in this encounter Care Teams Stock Counter Relationship Specialty Start Date End Date William King MD [address] [place] [address] PCP - General Internal Medicine 06/08/21 02/06/24 Ankit Bundy MD [address] [place] [address] PCP - General Family Medicine 02/07/24 William King MD [address] [place] [address] Referring Internal Medicine 06/08/21 02/06/24 Dina Ortiz MD [address] [place] [address] Referring Urology 09/14/23 documented as of this encounter
--- OUTSIDE RECORDS SUMMARY | 2025-03-19 15:22 | XMS_ITS | Encounter Summary ---
Author Organization [facility] Address [address] [place] [address] Care Team Providers Care Cured Meats Supervisor Name Role Phone William King MD Unavailable [phone] William King MD Primary Care Provider [phone] Dina Ortiz MD Unavailable Ankit Bundy MD Primary Care Provider [phone] Source Comments In the event this information is protected by the Federal Confidentiality of Alcohol and Drug AbusePatient Records regulations: The Federal rules restrict any use of the information to criminally investigate or prosecute any alcohol or drug abuse patient.[facility] Encounter Details Date Type Department Care Team (Late st Contact Info) Description 11/03/2022 Patient Msg Neurology [address] [place] [id number] Provider, [facility]cf Rejected CMN Social History Tobacco Use Types Packs/Day Years [...] often do you attend chur ch or catholic services? More than 4 times per year 12/29/2020 Do you belong to any clubs o r organizations such as restoration groups, unions, fraternal or athletic groups, or [...] Answer Date Recorded PHQ-2 score 6 12/29/2020 [facility] - [...] place to sleep or slept in a prison (including now)? No 12/29/2020 Area Deprivation Index Answer Date Randolph rded National Score (1-100), lower number is lower ri sk Not on file 11/13/2020 State Score (1-10), lower number is lower risk N ot on file 11/13/2020 Data from: https://www.neighborhoodatlas.medicine.[facility].edu/. Last address used for calculation Not on [...] 9:15 AM EDT Office Visit Urology [address] [address] Alex Ricks MD [address] [place] [address] Msg left to reschedule apt - 05/14/2025 11:00 AM EDT Office Visit Urology [address] [address] Alex Ricks MD [address] [place] [address] 1 month follow up check infected innerstem 05/20/2025 11:40 AM EDT [facility] [address] [address] Broderick Martinez MD [address] [place] [address] 6 month follow up documented as of this encounter Visit Diagnoses Not on filedocumented in this encounter Care Teams Cured Meats Supervisor Relationship Specialty Start Date End Date William King MD [address] [place] [address] PCP - General Internal Medicine 06/08/21 02/06/24 Ankit Bundy MD [address] [place] [address] PCP - General Family Medicine 02/07/24 William King MD [address] [place] [address] Referring Internal Medicine 06/08/21 02/06/24 Dina Ortiz MD [address] [place] [address] Referring Urology 09/14/23 documented as of this encounter
--- OUTSIDE RECORDS SUMMARY | 2025-03-19 15:22 | XMS_ITS | Clinical Summary ---
Author Organization [facility] Address [address] [place] [address] Care Team Providers Care Hi Lo Driver Name Role Phone Ankit Bundy MD Primary Care Provider [phone] Ankit Bundy MD Unavailable Allergies Active Allergy Reactions Criticality Noted Date Comments Amoxicillin Unknown 08/11/2023 Amoxicillin-Pot Clavulanate Unknown 08/11/20 23 Cephalosporins Unknown 08/11/2023 Levofloxacin Hallucinations Medium 10/20/2023 Penicillins 08/11/2023 Shellfish Allergy Unknown 10/20/2023 Medications ketoconazole (Nizoral) 2 % shampoo Apply 1 application topically 1 (one) time each day at the same time Active clobetasol (Temovate) 0.05 % external solution Apply 1 application topically in the morning and 1 application before bedtime. Active trospium (Sanctura) 20 MG tablet Take 20 mg by mouth in the morning and 20 mg before bedtime. 023 Active sildenafil (Viagra) 50 MG tabletIndications :Erectile dysfunction due to diseases classified elsewhere Take 1 tablet (50 mg) by mouth Daily as needed for erectile dysfunction 30 tablet 024 Active venlafaxine XR (Effexor XR) 150 MG 24 hr capsuleIndication s:MDD (major depressive disorder), recurrent episode, moderate (HCC) Take 1 capsule (150 mg) by mouth 1 (one) time each day at the same time 90 capsule 3 024 Active metFORMIN (Glucophage) 1000 MG tabletIndications :Type 2 diabetes mellitus with hyperglycemia, without long-term current use of insulin (HCC) TAKE 1 TABLET BY MOUTH TWICE A DAY WITH MORNING AND EVENING MEAL 180 tablet 3 025 Active cyanocobalamin (Vitamin B-12) 1000 MCG tablet 025 Active lamoTRIgine (LaMICtal) 25 MG tabletIndications :MDD (major depressive disorder), recurrent episode, moderate (HCC) TAKE 1 TAB BY MOUTH AT BEDTIME FOR 2 WEEKS, THEN INCREASE TO 2 TABS AT BEDTIME 180 tablet 1 025 Active atorvastatin (Lipitor) 20 MG tabletIndications :Mixed hyperlipidemia Take 1 tablet (20 mg) by mouth at bedtime 90 tablet 3 025 Active levothyroxine (Synthroid, Levoxyl) 125 MCG tabletIndications :Hypothyroidism, unspecified type TAKE 1 TABLET BY MOUTH IN THE MORNING BEFORE A MEAL 90 tablet 3 025 Active lisinopril 10 MG tabletIndications :Primary hypertension TAKE 1 TABLET BY MOUTH EVERY DAY 90 tablet 2 025 Active gabapentin (Neurontin) 300 MG capsuleIndication s:Spinal stenosis of lumbar region with neurogenic claudication Take 1 capsule (300 mg) by mouth in the morning and 1 capsule (300 mg) before bedtime. 270 capsule 025 Active SITagliptin (Januvia) 100 MG tabletIndications :Type 2 diabetes mellitus with hyperglycemia, without long-term current use of insulin (HCC) Take 1 tablet (100 mg) by mouth 1 (one) time each day at the same time 30 tablet 5 025 Active buPROPion XL (Wellbutrin XL) 300 MG 24 hr tabletIndications :Anxiety state Take 1 tablet (300 mg) by mouth in the morning. 90 tablet 3 025 Active allopurinol (Zyloprim) 300 MG tabletIndications :Acute gouty arthritis TAKE 1 TABLET BY MOUTH EVERY DAY 90 tablet 1 025 Active pantoprazole (ProtoNix) 40 MG EC tabletIndications :Melena,Gastroeso phageal reflux disease with esophagitis and hemorrhage Take 1 tablet (40 mg) by mouth every 12 (twelve) hours 180 tablet 025 Active allopurinol (Zyloprim) 300 MG tabletIndications :Acute gouty arthritis TAKE 1 TABLET BY MOUTH EVERY DAY 90 tablet 1 025 2024 Discontinued pantoprazole (ProtoNix) 40 MG EC tabletIndications :Melena,Gastroeso phageal reflux disease with esophagitis and hemorrhage TAKE 1 TABLET BY MOUTH EVERY 12 HOURS 180 tablet 025 2024 Discontinued(R eorder) Active Problems Problem Noted Date Diagnosed Date Diabetic polyneuropathy asso ciated with type 2 diabetes mellitus 09/11/2024 Assessment & Plan (09/11/2024 2:37 PM EST): Mild symptoms and continue neurontin. Encounter for long-term current use of medicatio n 03/13/2024 Medicare annual wellness visit, subsequent 03/13 Assessment & Plan (03/13/2024 2:14 PM EDT): Due for labs. Discussed proper diet and regular aerobic exercise. Need aerobic exercise 5-6 days a week for 30 minutes at a time. Smaller portions and limit total calories. Colonoscopy every 10 years. Tetanus every 10 years. Advised not to smoke. Discussed daily Aspirin therapy. Screening PSA (prostate specific antigen) 2023 Macrocytic anemia 02/28/2024 Assessment & Plan (02/28/2024 10:53 AM EDT): Mild macrocytic anemia, could be due to underlying liver disease. However, we will order basic anemia work up for the patient. Check B12, folate, iron profile. Repeat CBC. Chronic fatigue 02/28/2024 Assessment & Plan (02/28/2024 10:55 AM EDT): Chronic unspecified fatigue. Check TSH - to ensure levothyroxine is appropriately dosed. Patient reports compliance with CPAP. 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 Recommend follow up with GI. Assessment & Plan (10/20/2023 2:03 PM EST): Possible liver cirrhosis on US - noted in 2021 No follow up testing and work up afterwards Will order US liver. Patient asked to call GI and make an appointment after the US. He reports prior hx of heavy alcohol use along with methotrexate use for psoriasis. Abnormal metabolic state due to diabetes mellitu s 08/11/2023 Hearing loss 08/11/2023 Mixed hyperlipidemia 08/11/2023 Psoriasis vulgaris 08/11/2023 Neuromuscular dysfunction of bladder, unspecifie d 09/28/2021 Duodenal ulcer, unspecified as acute or chronic, without hemorrhage or perforation 09/25/2021 GERD (gastroesophageal reflux disease) Muscle wasting and atrophy, not elsewhere classified, multiple sites 09/25/2021 Spinal stenosis of lumbar re gion with neurogenic claudication 12/04/2018 MDD (major depressive disord er), recurrent episode, moderate 08/12/2011 Assessment & Plan (09/11/2024 2:36 PM EST): Symptoms stable and continue medication. Assessment & Plan (05/29/2024 11:21 AM EDT): Symptoms stable and continue medication. Type 2 diabetes mellitus wit h hyperglycemia, without long-term current use of insulin 03/24/2011 Assessment & Plan (09/11/2024 2:36 PM EST): Not checking BS but recent A1C 6.5. Stick to ADA diet and limit carbs. Assessment & Plan (05/29/2024 11:20 AM EDT): Reports BS improved and A1C 6.3. Stick to ADA diet and limit carbs. Pure hypercholesterolemia 12/28/2010 Erectile dysfunction due to diseases classified elsewhere 01/31/2009 Assessment & Plan (10/20/2023 2:00 PM EST): Reports inability to have an erection ever since he had epidural abscess and surgery for it. I suspect this is neurogenic in nature. However, it is not unreasonable to try Viagra to see if it helps him. Viagra 50 mg called in. Patient counseled and educated on adverse effects, drug interactions and to reach out to office/pharmacy if questions or concerns related to new medications. Patient is scheduled to have a stimulator for neurogenic bladder and I told him that she should discuss with his Urologist to possibly look into penile pump also. Because if his ED is of neurological etiology - it will likely not respond to viagra. Adult hypothyroidism 11/19/2008 MAGO (generalized anxiety disorder) 11/08/2007 Arthropathic psoriasis 11/08/2007 Benign essential hypertension 11/08/2007 Assessment & Plan (09/11/2024 2:36 PM EST): BP elevated today but previously controlled and monitor PRN. Assessment & Plan (05/29/2024 11:20 AM EDT): BP controlled and monitor PRN. Gouty arthropathy 11/08/2007 Resolved Problems Problem Noted Date Diagnosed Date Resolved Date Melena 08/17/2023 05/29/2024 Assessment & Plan (10/20/2023 2:02 PM EST): Melanotic stools with prior hx of PUD and possible liver cirrhosis. (Noted on US in 2021) Normal CBC, PT, PTT. Normal liver function test Patient's symptoms resolved and he did not follow up with GI. He was asked to call their office and follow up with them as he will benefit from GI eval for possible liver cirrhosis. Assessment & Plan (08/17/2023 1:11 PM EST): Melanotic stools with prior hx of PUD and possible liver cirrhosis. Recent CBC a month ago indicated Hb of 13.3 Recheck CBC, CMP, PT INR, stool for occult blood. C/w protonix 40 q12. Avoid NSAIDS, alcohol use. Patient referred to GI for further care. Instructed to go to ED if persistent/large quantity of melanotic stools. Otitis externa 08/11/2023 03/13/2024 Extradural and subdural absc ess, unspecified (HHS-HCC) 09/25/2021 03/13/2024 Epidural abscess (HHS-HCC) 08/21/2021 0 03/13/2024 Positive FIT (fecal immunochemical test) 08/17/2019 05/29/2024 Nonspecific abnormal results of liver function study 11/08/2007 05/29/2024 Encounters Date Type Department Care Team Description 03/19/2025 Refill [facility] [address] [place] [address] Ankit Bundy MD Melena; Gastroesophageal reflux disease with esophagitis and hemorrhage 03/05/2025 Telephone [facility] [address] [place] [address] Ankit Bundy MD 03/01/2025 Refill [facility] [address] [place] [address] Ankit Bundy MD Acute gouty arthritis 02/05/2025 Refill [facility] [address] [place] [address] Ankit Bundy MD Type 2 diabetes mellitus with hyperglycemia, without long-term current use of insulin ([facility]); Anxiety state 01/16/2025 Refill [facility] [address] [place] [address] Ankit Bundy MD Spinal stenosis of lumbar region with neurogenic claudication 01/16/2025 Refill [facility] [address] [place] [address] Ankit Bundy MD Primary hypertension 01/13/2025 Refill [facility] [address] [place] [address] Ankit Bundy MD Hypothyroidism, unspecified type 12/31/2024 Refill [facility] [address] [place] [address] Ankit Bundy MD Type 2 diabetes mellitus with hyperglycemia, without long-term current use of insulin (HCC) 12/20/2024 Refill [facility] [address] [place] [address] Ankit Bundy MD Arianna; Gastroesophageal reflux disease with esophagitis and hemorrhage 12/18/2024 [facility]ill [facility] [address] [place] [address] Ankit Bundy MD Mixed hyperlipidemia from Last 3 Months Immunizations Immunization Administration Dates Next Due Moderna SARS-CoV-2 Vaccination 09/21/2021,2020 Pfizer Purple Cap SARS-CoV-2 Vaccination 021 Family History Medical History Relation Name Comments Diabetes Father Heart disease Father Hypertension Father Stroke Maternal Grandfather Cancer Maternal Grandmother Heart disease Mother Hypertension Mother Cancer Paternal Grandmother Heart disease Sibling Multiple myeloma Neg Hx Relation Name Status Comments Father Maternal Grandfather Maternal Grandmother Mother Paternal Grandmother Sibling Social History Tobacco Use Types Packs/Day Years Used Date Smoking Tobacco: Never Passive Smoke Exposure: Never Smokeless Tobacco: Never Tobacco Cessation:Counseling Given: No Alcohol Use Standard Drinks/Week Comments Not Currently 0 (1 standard drink = 0.6 oz pur e alcohol) B1300 Health Literacy Answer Date Recor ded How often do you need to hav e someone help you when you read instructions, pamphlets, or other written material from your doctor or pharmacy? Never 09/06/2024 Humiliation, Afraid, Rape, and Kick questionnair e Answer Date Recorded Within the last year, have y ou been afraid of your partner or ex-partner? No 08/16/2023 Within the last year, have y ou been humiliated or emotionally abused in other ways by your partner or ex-partner? No Within the last year, have y ou been kicked, hit, slapped, or otherwise physically hurt by your partner or ex-partner? No 08/16/2023 Within the last year, have y ou been raped or forced to have any kind of sexual activity by your partner or ex-partner? No 08/16/2023 Social Connection and Isolat ion Panel [NHANES] Answer Date Recorded In a typical week, how many times do you talk on the phone with family, friends, or neighbors? More than three times a week 09/06/2024 How often do you get togethe r with friends or relatives? Once a week 09/06/2024 How often do you attend chur or denominational services? More than 4 times per year 09/06/2024 Do you belong to any clubs o r organizations such as tenriism groups, unions, fraternal or athletic groups, or school groups? No 09/06/2024 How often do you attend meet ings of the clubs or organizations you belong to? Patient declined 09/06/2024 Are you , , di vorced, , never , or living with a partner? 09/06/2024 AUDIT-C Answer Date Recorded Q1: How often do you have a drink containing alc ohol? 2-3 times a week 09/06/2024 Q2: How many drinks containi ng alcohol do you have on a typical day when you are drinking? 3 or 4 09/06/2024 Q3: How often do you have si x or more drinks on one occasion? Less than monthly 09/06/2024 Overall Financial Resource Strain (CARDIA) Answe r Date Recorded How hard is it for you to pa y for the very basics like food, housing, medical care, and heating? Somewhat hard 09/06/2024 PHQ-2 Answer Date Recorded Patient Health Questionnaire-2 Score 2 03/06/2024 [facility] - Occupational Stress Questionnaire Answer Date Recorded Do you feel stress - tense, restless, nervous, or anxious, or unable to sleep at night because your mind is troubled all the time - these days? To some extent 09/06/2024 Exercise Vital Sign Answer Date Recorde d On average, how many days pe r week do you engage in moderate to strenuous exercise (like a brisk walk)? 0 days 09/06/2024 On average, how many minutes do you engage in exercise at this level? 0 min 09/06/2024 Hunger Vital Sign Answer Date Recorded Within the past 12 months, y ou worried that your food would run out before you got the money to buy more. Never true 09/06/19 25 Within the past 12 months, t he food you bought just didn't last and you didn't have money to get more. Never true 09/06/2024 PRAPARE - Transportation Answer Date Re corded In the past 12 months, has l ack of transportation kept you from medical appointments or from getting medications? No 08/16 In the past 12 months, has l ack of transportation kept you from meetings, work, or from getting things needed for daily living? No 09/06/2024 Housing Stability Vital Sign Answer John e Recorded In the last 12 months, was t here a time when you were not able to pay the mortgage or rent on time? No 08/16/2023 Number of Places Lived in the Last Year Not on f ile 08/16/2023 In the last 12 months, was t here a time when you did not have a steady place to sleep or slept in a usp (including now)? No 08/16/2023 Housing Stability Vital Sign Answer John e Recorded In the last 12 months, was t here a time when you were not able to pay the mortgage or rent on time? No 09/06/2024 In the past 12 months, how m any times have you moved where you were living? 0 09/06/2024 At any time in the past 12 m [facility], were you homeless or living in a usp (including now)? No 09/06/2024 Sex and Gender Information Value Date Recorded Sex Assigned at Male 09/03/2024 11:08 AM EST Legal Sex Male 6:56 PM EDT Gender Identity Male 09/03/2024 11:08 AM EST Sexual Orientation Straight 09/03/2024 11 :08 AM EST Last Filed Vital Signs Vital Sign Reading Time Taken Comments Blood Pressure 152/70 09/11/2024 2:02 PM EST Pulse 94 09/11/2024 2:02 PM EST Temperature 36.4 C (97.5 F) 09/11/2024 2:02 PM EST Respiratory Rate 20 09/11/2024 2:02 PM EST Oxygen Saturation 99% 09/11/2024 2:02 PM EST Inhaled Oxygen Concentration - - Weight 88.9 kg (196 lb) 09/11/2024 2:02 PM EST Height 172.7 cm (5' 8 ) 09/11/2024 2:02 PM EST Body Mass Index 29.8 09/11/2024 2:02 PM EST Plan of Treatment Health Maintenance Due Date Last Done Comments Diabetes: Retinopathy Screening 11/05/1961 Pneumococcal Vaccine: 65+ Ye ars (1 of 2 - PCV) 11/05/1970 Diabetes: Urine Protein Screening 05/25/2022 05/25/2021, 11/21/2020, 05/21/2019 Diabetes: Hemoglobin A1C 01/24/2025 024, 02/24/2024, 08/04/2021, Additional history exists Influenza Vaccine (#1) 2025 FIT Discontinued 08/16/2019 FOBT Discontinued 08/16/2019 Colonoscopy Discontinued 05/20/2020 Colorectal Cancer Screening Discontinued CT Colonography Discontinued FIT-DNA Discontinued Sigmoidoscopy Discontinued Goals Goal Patient Goal Type Associated Problems Recent Progress Patient-Stated? Author Help patient manage antidepressant medication Care Plan Patient on antidepressant monitoring plan No J LUIS LEA Baseline PHQ-9 Care Plan Baseline PHQ-9 J LUIS Perla Procedures Procedure Name Priority Date/Time Associated Diagnosis Comments MICROALBUMIN / CREATININE URINE RATIO Routine 05/25/2021 HEMOGLOBIN A1C Routine 05/25/2021 from Last 3 Months or Most Recently Relevant to Health Maintenance Results * Microalbumin / creatinine urine ratio (05/25/2021) UCREA 160 39 - 259 [facility] MALB 8.8 [facility] Comment:mALB reference range not established. MICROALB/CREAT RATIO 55.0 [facility] 05/25/2021 us Generic Conversion MD LAB URINE ORDERABLES Final Result Performing Organization Address [facility] de Phone Number [facility] * (ABNORMAL) Hemoglobin A1c (05/25/2021) ANGIOTENSIN 1 CONV 6.9(H) 4.0 - 6.0 [facility] ESTIM. AVG GLU (EAG) 151.33 [facility] 05/25/2021 us Generic Conversion MD LAB BLOOD ORDERABLES Final Result Performing Organization Address [facility]/State/ZIP Co de Phone Number [facility] from Last 3 Months or Most Recently Relevant to Health Maintenance Additional Health Concerns Active Problems Noted Date Diagnosed Date Patient on antidepressant monitoring plan 2023 Baseline PHQ-9 11/30/2023 Insurance [employer] MED[employer]ARE ADVANTAGE Care Teams Hi Lo Driver Relationship Specialty Start Date End Date Ankit Bundy MD [address] [place] [address] PCP - General Family Medicine 10/20/23 Ankit Bundy MD [address] [place] [address] PCP - [employer] 12/14/23
--- OUTSIDE RECORDS SUMMARY | 2025-03-19 15:22 | XMS_ITS | Clinical Summary ---
Author Organization [facility] Address [address] [place] [address] Care Team Providers Care Malt House Kiln Operator Name Role Phone Unavailable Primary Care Provider Unavailabl e Social History Tobacco Use Types Packs/Day Years Used Date Smoking Tobacco: Never Assessed Sex and Gender Information Value Date Recorded Sex Assigned at Not on file Legal Sex Male 9:45 PM EDT Gender Identity Not on file Sexual Orientation Not on file Plan of Treatment Not on file
--- OUTSIDE RECORDS SUMMARY | 2025-03-19 15:22 | XMS_ITS | Encounter Summary ---
Author Organization [facility] Address [facility] [place] [address] Care Team Providers Care Process Development Engineer Name Role Phone William King MD Unavailable [phone] William King MD Primary Care Provider [phone] Dina Ortiz MD Unavailable Ankit Bundy MD Primary Care Provider [phone] Source Comments In the event this information is protected by the Federal Confidentiality of Alcohol and Drug AbusePatient Records regulations: The Federal rules restrict any use of the information to criminally investigate or prosecute any alcohol or drug abuse patient.[facility] Encounter Details Date Type Department Care Team (Late st Contact Info) Description 10/17/2023 Get Medical Advice Urology [address] [place] [address] Ana M Payne MD [address] [place] [address] Video Contact Social History Tobacco Use Types Packs/Day Years [...] How often do you attend chur or religion services? More than 4 times per year 12/29/2020 Do you belong to any clubs o r organizations such as quaker groups, unions, fraternal or athletic groups, or [...] Answer Date Recorded PHQ-2 score 6 12/29/2020 [facility] Occupat ional Health - Occupational [...] is lower risk 4 09/21/2023 Data from: https://www.neighborhoodatlas.medicine.[facility].edu/. Last address used for calculation [address] [...] 9:15 AM EDT Office Visit Urology [address] [address] Alex Ricks MD [address] [place], [place] [id number] Msg left to reschedule apt - 05/14/2025 11:00 AM EDT Office Visit Urology [address] [address] Alex Ricks MD [address] [facility] 237 [place] [address] 1 month follow up check infected innerstem 05/20/2025 11:40 AM EDT [facility] [address] [place], [place] [phone] Broderick Martinez MD [address] [place] [address] 6 month follow up documented as of this encounter Visit Diagnoses Not on filedocumented in this encounter Care Teams Process Development Engineer Relationship Specialty Start Date End Date William King MD [address] [place] [address] PCP - General Internal Medicine 06/08/21 02/06/24 Ankit Bundy MD [address] [place] [address] PCP - General Family Medicine 02/07/24 William King MD [address] [place] [address] Referring Internal Medicine 06/08/21 02/06/24 Dina Ortiz MD [address] [place] [address] Referring Urology 09/14/23 documented as of this encounter
--- OUTSIDE RECORDS SUMMARY | 2025-03-19 15:22 | XMS_ITS | Encounter Summary ---
Author Organization [facility] Address [address] [facility], [address] [place] [address] Care Team Providers Care Construction Project Administrator Name Role Phone William King MD Primary Care Provider [phone] Reason for Visit * Reason Comments Other Encounter Details Date Type Department Care Team (Late st Contact Info) Description 11/12/2014 [facility] [address] [place] [address] William King MD [address] [place] [address] Other Social History Tobacco Use Types Packs/Day Years Used Date Smoking Tobacco: Never Smokeless Tobacco: Never Alcohol Use Standard Drinks/Week Comments Yes 29.2 (1 standard drink = 0.6 oz pure alcohol) Sex and Gender Information Value Date Recorded [...] 02/14/2020 02/14/2020 02/17/20 20 1:05 AM EDT documented as of this encounter Care Teams Construction Project Administrator Relationship Specialty Start Date End Date William King MD [address] [place] [id number] PCP - General 06/09/12 11/08/21 documented as of this encounter
--- OUTSIDE RECORDS SUMMARY | 2025-03-19 15:22 | XMS_ITS | Encounter Summary ---
Author Organization [facility] Address [facility] [place] [address] Care Team Providers Care Fisheries Biologist Name Role Phone Dina Ortiz MD Unavailable Ankit Bundy MD Primary Care Provider [phone] Source Comments In the event this information is protected by the Federal Confidentiality of Alcohol and Drug AbusePatient Records regulations: The Federal rules restrict any use of the information to criminally investigate or prosecute any alcohol or drug abuse patient.[facility] Encounter Details Date Type Department Care Team (Late st Contact Info) Description 02/15/2024 Patient Msg Pre Anesthesia [address] [place] [address] Provider, [facility] PACC APPPOINTMENT Social History Tobacco Use Types Packs/Day Years [...] often do you attend chur ch or amish services? More than 4 times per year 12/29/2020 Do you belong to any clubs o r organizations such as muslim groups, unions, fraternal or athletic groups, or [...] Answer Date Recorded PHQ-2 score 6 12/29/2020 [facility] of Occupat ional Health - Occupational [...] is lower risk 4 09/21/2023 Data from: https://www.neighborhoodatlas.medicine.[facility].edu/. Last address used for calculation [address] [...] 9:15 AM EDT Office Visit Urology [address] [address] Alex Ricks MD [address] [facility] 237 [place] [id number] Msg left to reschedule apt - 05/14/2025 11:00 AM EDT Office Visit Urology [address] [address] Alex Ricks MD [address] [facility] 237 [place] [id number] 1 month follow up check infected innerstem 05/20/2025 11:40 AM EDT [facility]ATIONAL CONSULT MAIN [address] [place] [address] Broderick Martinez MD [address] [place] [address] 6 month follow up documented as of this encounter Visit Diagnoses Not on filedocumented in this encounter Care Teams Fisheries Biologist Relationship Specialty Start Date End Date Ankit Bundy MD [address] [place] [address] PCP - General Family Medicine 02/07/24 Dina Ortiz MD [address] [place] [address] Referring Urology 09/14/23 documented as of this encounter
--- OUTSIDE RECORDS SUMMARY | 2025-03-19 15:22 | XMS_ITS | Encounter Summary ---
Author Organization [facility] Address [address] [place] [address] Care Team Providers Care Balloon Tester Name Role Phone William King MD Unavailable William King MD Primary Care Provider [phone] Dina Ortiz MD Unavailable Ankit Bundy MD Primary Care Provider [phone] Source Comments In the event this information is protected by the Federal Confidentiality of Alcohol and Drug AbusePatient Records regulations: The Federal rules restrict any use of the information to criminally investigate or prosecute any alcohol or drug abuse patient.[facility] Encounter Details Date Type Department Care Team (Late st Contact Info) Description 01/17/2021 Get Medical Advice Internal Medicine [facility] [address] [place] [address] Broderick Martinez MD [address] [place] [address] RE: Non-Urgent Medical Question Social History [...] How often do you attend chur or catholic services? More than 4 times per year 12/29/2020 Do you belong to any clubs o r organizations such as jew groups, unions, fraternal or athletic groups, or [...] Answer Date Recorded PHQ-2 score 6 12/29/2020 [facility] of Occupat ional Health - Occupational Stress [...] place to sleep or slept in a fdc (including now)? No 12/29/2020 Area Deprivation Index Answer Date Randolph rded National Score (1-100), lower number is lower ri sk Not on file 11/13/2020 State Score (1-10), lower number is lower risk N ot on file 11/13/2020 Data from: https://www.neighborhoodatlas.medicine.[facility].edu/. Last address used for calculation Not [...] 9:15 AM EDT Office Visit Urology [address] [address] Alex Ricks MD [address] [id number] Msg left to reschedule apt - 05/14/2025 11:00 AM EDT Office Visit Urology [address] [address] Alex Ricks MD [address] [address] 1 month follow up check infected innerstem 05/20/2025 11:40 AM EDT [facility] [address] [place], [place] [phone] Broderick Martinez MD [address] [place] [address] 6 month follow up documented as of this encounter Visit Diagnoses Not on filedocumented in this encounter Care Teams Balloon Tester Relationship Specialty Start Date End Date William King MD [address] [place] [address] PCP - General Internal Medicine 06/08/21 02/06/24 Ankit Bundy MD [address] [place] [address] PCP - General Family Medicine 02/07/24 William King MD [address] [place] [address] Referring Internal Medicine 06/08/21 02/06/24 Dina Ortiz MD [address] [facility] [place] [address] Referring Urology 09/14/23 documented as of this encounter
--- OUTSIDE RECORDS SUMMARY | 2025-03-19 15:22 | XMS_ITS | Encounter Summary ---
Author Organization [facility] Address [address] [place] [address] Care Team Providers Care Leasing Property Manager Name Role Phone William King MD Primary Care Provider [phone] Tee Carpenter MD Unavailable Ankit Bundy MD Unavailable Antwan Chavez MD Unavailable [phone] Ankit Bundy MD Primary Care Provider [phone] Reason for Visit * Reason Onset Date Comments Returning Phone Call 12/12/2019 Encounter Details Date Type Department Care Team (Late st Contact Info) Description 12/12/2019 Telephone Division of Neuro Surgery at [facility] [address] [place] [address] Antwan Chavez MD [address] [place], [place] [phone] Returning Phone Call Social History Tobacco Use Types Packs/Day Years [...] Jarvis Silveira RN * Do you have serious difficulty walking or climbing stairs (5 years or older)? Answer Date of Assessment Author No 01/18/2019 10:44 AM Jarvis Silveira RN * Do you have difficulty dressing or bathing (5 yrs or older)? Answer Date of Assessment Author No 01/18/2019 10:44 AM Jarvis Silveira RN * Because of a physical, mental, [...] Telephone Encounter - Rebekah Lomax RN - 12/13/2019 2:30 PM EDT RN contacted patient regarding upcoming appointment. Patient agreed to have xray completed locally in next week and our office will follow up with results afterwards. Patient denies any issues or concerns. RN to email patients xray order. * Telephone Encounter - Sally Mary - 12/12/2019 4:00 PM EDT Elder pt - Mdaan calling in to speak with Rebekah, returning her call. Please call again (he is available after 10 AM tomorrow). Thank you. documented in this encounter Plan of Treatment [...] removed 09/04/2020 by Dilia Wolff DNP, RN, [facility] 08/24/2021 08/24/2021 09/04/2021 12:50 P M EST COVID-19 Suspected 09/24/2021 09/24/2021 2 2:05 AM EST documented as of this encounter Care Teams Leasing Property Manager Relationship Specialty Start Date End Date William King MD PCP - General Internal Medicine 11/23/18 09/23/21 Ankit Bundy MD [address] [place] [address] PCP - General Family Medicine 09/24/21 Tee Carpenter MD Orthopaedic Surgery 11/23/18 Ankit Bundy MD [address] [place] [address] Family Physician Family Medicine 08/04/21 Antwan Chavez MD [address] [place] [address] Neurosurgeon Neurological Surgery 08/05/21 documented as of this encounter
--- OUTSIDE RECORDS SUMMARY | 2025-03-19 15:22 | XMS_ITS | Encounter Summary ---
Author Organization [facility] Address [address] [place] [address] Care Team Providers Care Hand Crocheter Name Role Phone Ankit Bundy MD Primary Care Provider [phone] Ankit Bundy MD Unavailable Reason for Visit * Reason Onset Date Comments Med Refill 03/19/2025 Encounter Details Date Type Department Care Team (Late st Contact Info) Description 03/19/2025 [facility] [address] [place] [address] Ankit Bundy MD [address] [place] [address] Melena; Gastroesophageal reflux disease with esophagitis and hemorrhage Social History Tobacco Use Types Packs/Day Years Used Date Smoking Tobacco: Never Passive Smoke Exposure: Never Smokeless Tobacco: Never Alcohol Use Standard Drinks/Week Comments Not Currently [...] How often do you attend chur or sikh services? More than 4 times per year 09/06/2024 Do you belong to any clubs o r organizations such as catholic groups, unions, fraternal or athletic groups, or [...] Recorded Patient Health Questionnaire-2 Score 2 03/06/2024 [facility] of Occupat ional Health - Occupational Stress [...] place to sleep or slept in a mcfp (including now)? No 08/16/2023 Housing Stability Vital Sign Answer John e Recorded In the last 12 months, was t here a time when you were not able to pay the mortgage or rent on time? No 09/06/2024 In the past 12 months, how m any times have you moved where you were living? 0 09/06/2024 At any time in the past 12 m [facility], were you homeless or living in a mcfp (including now)? No 09/06/2024 Sex and Gender Information Value Date Recorded Sex Assigned at Male 09/03/2024 11:08 AM EST Legal Sex Male 6:56 PM EDT Gender Identity Male 09/03/2024 11:08 AM EST Sexual Orientation Straight 09/03/2024 11 :08 AM EST documented as of this encounter Miscellaneous Notes * Telephone Encounter - J LUIS LEA - 03/19/2025 10:40 AM EDT MEDICATION SENT TO [facility] documented in this encounter Plan of Treatment Not on file documented as of this encounter Goals Goal Patient Goal Type Associated Problems Recent Progress Patient-Stated? Author Help patient manage antidepressant medication Care Plan Patient on antidepressant monitoring plan No J LUIS LEA Baseline PHQ-9 Care Plan Baseline PHQ-9 No J LUIS LEA documented as of this encounter Visit Diagnoses Diagnosis Melena Blood in stool Gastroesophageal reflux disease with esophagitis and hemorrhage documented in this encounter Additional Health Concerns Active Problems Noted Date Diagnosed Date Patient on antidepressant monitoring plan 2023 Baseline PHQ-9 11/30/2023 Assessment Noted Time PHQ-9 Depression Total Score: 8 03/13/20 24 1:00 PM EDT documented as of this encounter Care Teams Hand Crocheter Relationship Specialty Start Date End Date Ankit Bundy MD [address] [place] [address] PCP - General Family Medicine 10/20/23 Ankit Bundy MD [address] [place] [address] PCP - [employer] 12/14/23 documented as of this encounter
--- OUTSIDE RECORDS SUMMARY | 2025-03-19 15:22 | XMS_ITS | Encounter Summary ---
Author Organization [facility] Address [address] [place] [address] Care Team Providers Care Opening Machine Cleaner Name Role Phone William King MD Unavailable [phone] William King MD Primary Care Provider [phone] Dina Ortiz MD Unavailable Ankit Bundy MD Primary Care Provider [phone] Source Comments In the event this information is protected by the Federal Confidentiality of Alcohol and Drug AbusePatient Records regulations: The Federal rules restrict any use of the information to criminally investigate or prosecute any alcohol or drug abuse patient.[facility] Encounter Details Date Type Department Care Team (Late st Contact Info) Description 02/26/2021 Patient Msg Internal Medicine [facility] [address] [place] [address] Broderick Martinez MD [address] [place] [address] Good afternoon Social History Tobacco Use Types Packs/Day Years [...] any clubs o r organizations such as taoism groups, unions, fraternal or athletic groups, or [...] Answer Date Recorded PHQ-2 score 6 12/29/2020 [facility] of Occupat ional Health - Occupational [...] place to sleep or slept in a long-term (including now)? No 12/29/2020 Area Deprivation Index Answer Date Randolph rded National Score (1-100), lower number is lower ri sk Not on file 11/13/2020 State Score (1-10), lower number is lower risk N ot on file 11/13/2020 Data from: https://www.neighborhoodatlas.medicine.[facility].edu/. Last address used for calculation Not on [...] 9:15 AM EDT Office Visit Urology [address] [place] [phone] Alex Ricks MD 2950 [facility] 237 [place], [place] [phone] Msg left to reschedule apt - 05/14/2025 11:00 AM EDT Office Visit Urology [address] [address] Alex Ricks MD [address] [place] [address] 1 month follow up check infected innerstem 05/20/2025 11:40 AM EDT [facility]ULT [facility]IN [address] [place], [place] [phone] Broderick Martinez MD [address] [place] [address] 6 month follow up documented as of this encounter Visit Diagnoses Not on filedocumented in this encounter Care Teams Opening Machine Cleaner Relationship Specialty Start Date End Date William King MD [address] [place] [address] PCP - General Internal Medicine 06/08/21 02/06/24 Ankit Bundy MD [address] [place] [address] PCP - General Family Medicine 02/07/24 William King MD [address] [place] [address] Referring Internal Medicine 06/08/21 02/06/24 Dina Ortiz MD 2800 [facility] [place] [address] Referring Urology 09/14/23 documented as of this encounter
--- OUTSIDE RECORDS SUMMARY | 2025-03-19 15:22 | XMS_ITS | Encounter Summary ---
Author Organization [facility] Address [facility] [place] [address] Care Team Providers Care Coal Cager Name Role Phone Dina Ortiz MD Unavailable Ankit Bundy MD Primary Care Provider [phone] Source Comments In the event this information is protected by the Federal Confidentiality of Alcohol and Drug AbusePatient Records regulations: The Federal rules restrict any use of the information to criminally investigate or prosecute any alcohol or drug abuse patient.[facility] Encounter Details Date Type Department Care Team (Late st Contact Info) Description 06/15/2024 Patient Msg Urology [address] [place], [place] [phone] Nasra Fermin MD [address] [place] [address] Appointment Request Social History Tobacco Use Types Packs/Day [...] How often do you attend chur or nondenominational services? More than 4 times per year 12/29/2020 Do you belong to any clubs o r organizations such as mandaeism groups, unions, fraternal or athletic groups, or [...] place to sleep or slept in a care home (including now)? No 12/29/2020 Area Deprivation Index Answer Date Randolph rded National Score (1-100), lower number is lower ri sk 63 09/21/2023 State Score (1-10), lower number is lower risk 4 09/21/2023 Data from: https://www.neighborhoodatlas.medicine.[facility].edu/. Last address used for calculation [address] [...] 9:15 AM EDT Office Visit Urology [address] [address] Alex Ricks MD [address] [place] [address] Msg left to reschedule apt - 05/14/2025 11:00 AM EDT Office Visit Urology [address] [address] Alex Ricks MD [address] [place] [address] 1 month follow up check infected innerstem 05/20/2025 11:40 AM EDT [facility] INT NATIONAL CONSULT MAIN [address] [place], [place] [phone] Broderick Martinez MD [address] [place] [address] 6 month follow up documented as of this encounter Visit Diagnoses Not on filedocumented in this encounter Care Teams Coal Cager Relationship Specialty Start Date End Date Ankit Bundy MD [address] [place] [address] PCP - General Family Medicine 02/07/24 Dina Ortiz MD [address] [facility] [place] [address] Referring Urology 09/14/23 documented as of this encounter
--- OUTSIDE RECORDS SUMMARY | 2025-03-19 15:22 | XMS_ITS | Encounter Summary ---
Author Organization [facility] [employer] Address [address] [place] [address] Care Team Providers Care Revenue Accounting Manager Name Role Phone William King MD Primary Care Provider [phone] Tee Carpenter MD Unavailable Ankit Bundy MD Unavailable Antwan Chavez MD Unavailable [phone] Ankit Bundy MD Primary Care Provider [phone] Reason for Visit * Reason Onset Date Comments Medication Management 01/31/2019 Encounter Details Date Type Department Care Team (Late st Contact Info) Description 01/31/2019 Telephone Division of Neuro Surgery at [facility] [address] [place] [address] Antwan Chavez MD [address] [place] [address] Medication Management Social History Tobacco Use Types Packs/Day Years [...] * Telephone Encounter - Dexter Britton - 01/31/2019 1:32 PM EDT Elder pt Patient called requesting to speak with Coco today regarding medication. He said it's not urgent but requesting return call today. documented in this encounter Plan of Treatment [...] removed 09/04/2020 by Dilia Wolff DNP, RN, [facility] 08/24/2021 08/24/2021 09/04/2021 12:50 P M EST COVID-19 Suspected 09/24/2021 09/24/2021 2 2:05 AM EST documented as of this encounter Care Teams Revenue Accounting Manager Relationship Specialty Start Date End Date William King MD PCP - General Internal Medicine 11/23/18 09/23/21 Ankit Bundy MD [address] [place] [address] PCP - General Family Medicine 09/24/21 Tee Carpenter MD Orthopaedic Surgery 11/23/18 Ankit Bundy MD [address] [place] [address] Family Physician Family Medicine 08/04/21 Antwan Chavez MD [address] [place] [address] Neurosurgeon Neurological Surgery 08/05/21 documented as of this encounter
--- OUTSIDE RECORDS SUMMARY | 2025-03-19 15:22 | XMS_ITS | Encounter Summary ---
Author Organization [facility] Address [address] [place] [address] Care Team Providers Care Manager Event Name Role Phone William King MD Unavailable [phone] William King MD Primary Care Provider [phone] Dina Ortiz MD Unavailable Ankit Bundy MD Primary Care Provider [phone] Source Comments In the event this information is protected by the Federal Confidentiality of Alcohol and Drug AbusePatient Records regulations: The Federal rules restrict any use of the information to criminally investigate or prosecute any alcohol or drug abuse patient.[facility] Encounter Details Date Type Department Care Team (Late st Contact Info) Description 05/21/2021 Get Medical Advice Internal Medicine [facility] [place] [address] Broderick Martinez MD [address] [place] [address] RE: Non-Urgent Medical Question Social History [...] How often do you attend chur or druze services? More than 4 times per year 12/29/2020 Do you belong to any clubs o r organizations such as cheondoism groups, unions, fraternal or athletic groups, or [...] Answer Date Recorded PHQ-2 score 6 12/29/2020 [facility] of Occupat ional Health - Occupational [...] place to sleep or slept in a residential (including now)? No 12/29/2020 Area Deprivation Index Answer Date Randolph rded National Score (1-100), lower number is lower ri sk Not on file 11/13/2020 State Score (1-10), lower number is lower risk N ot on file 11/13/2020 Data from: https://www.neighborhoodatlas.medicine.[facility].edu/. Last address used for calculation [...] 9:15 AM EDT Office Visit Urology [address] [address] Alex Ricks MD [address] [place] [address] Msg left to reschedule apt - 05/14/2025 11:00 AM EDT Office Visit Urology [address] [place] [address] Alex Ricks MD [address] [place] [address] 1 month follow up check infected innerstem 05/20/2025 11:40 AM EDT [facility]TM NATIONAL CONSULT MAIN [address] [place], [place] [phone] Broderick Martinez MD [address] [place] [address] 6 month follow up documented as of this encounter Visit Diagnoses Not on filedocumented in this encounter Care Teams Manager Event Relationship Specialty Start Date End Date William King MD [address] [place] [address] PCP - General Internal Medicine 06/08/21 02/06/24 Ankit Bundy MD [address] [facility] [place] [place] [address] PCP - General Family Medicine 02/07/24 William King MD [address] [place] [address] Referring Internal Medicine 06/08/21 02/06/24 Dina Ortiz MD [address] [place] [address] Referring Urology 09/14/23 documented as of this encounter
--- OUTSIDE RECORDS SUMMARY | 2025-03-19 15:22 | XMS_ITS | Encounter Summary ---
Author Organization [facility] Address [address] [place] [address] Care Team Providers Care Senior Chemical Process Engineer Name Role Phone Ankit Bundy MD Primary Care Provider Ankit Bundy MD Unavailable Encounter Details Date Type Department Care Team (Late st Contact Info) Description 03/05/2025 [facility]phone [facility] [address] [place] [address] Ankit Bundy MD [address] [place] [address] Social History Tobacco Use Types Packs/Day Years [...] How often do you attend chur or methodist services? More than 4 times per year 09/06/2024 Do you belong to any clubs o r organizations such as voodoo groups, unions, fraternal or athletic groups, or [...] Recorded Patient Health Questionnaire-2 Score 2 03/06/2024 [facility] of Occupat ional Health - Occupational Stress [...] place to sleep or slept in a jail (including now)? No 08/16/2023 Housing Stability Vital Sign Answer John e Recorded In the last 12 months, was t here a time when you were not able to pay the mortgage or rent on time? No 09/06/2024 In the past 12 months, how m any times have you moved where you were living? 0 09/06/2024 At any time in the past 12 m [facility], were you homeless or living in a jail (including now)? No 09/06/2024 Sex and Gender Information Value Date Recorded Sex Assigned at Male 09/03/2024 11:08 AM EST Legal Sex Male 6:56 PM EDT Gender Identity Male 09/03/2024 11:08 AM EST Sexual Orientation Straight 09/03/2024 11 :08 AM EST documented as of this encounter Miscellaneous Notes * Telephone Encounter - J LUIS LEA - 03/05/2025 8:47 AM EDT Patient filled out PHQ9 with questionable answers, reached out to patient, states the bad feeling were a few years ago nothing recent. Feels good, not sad or depressed. clm documented in this encounter Plan of Treatment [...] filedocumented in this encounter Additional Health Concerns Active Problems Noted Date Diagnosed Date Patient on antidepressant monitoring plan 2023 Baseline PHQ-9 11/30/2023 Assessment Noted Time PHQ-9 Depression Total Score: 8 03/13/20 24 1:00 PM EDT documented as of this encounter Care Teams Senior Chemical Process Engineer Relationship Specialty Start Date End Date Ankit Bundy MD [address] [place] [address] PCP - General Family Medicine 10/20/23 Ankit Bundy MD [address] [place] [address] PCP - Aetkiara 12/14/23 documented as of this encounter
--- OUTSIDE RECORDS SUMMARY | 2025-03-19 15:22 | XMS_ITS | Encounter Summary ---
Author Organization [facility] Address [address] [facility], [address] [place] [address] Care Team Providers Care Intelligence Specialist Name Role Phone William King MD Primary Care Provider [phone] Encounter Details Date Type Department Care Team (Late st Contact Info) Description 01/04/2020 E-Visit CUrszula King MD [facility] [address] [place] [phone] William King MD [address] [place] [id number] E-Visit Submission: General Medical Concern for your PCP Social History Tobacco Use Types Packs/Day Years Used Date Smoking Tobacco: Never Smokeless Tobacco: Never Alcohol Use Standard Drinks/Week Comments Yes 29.2 (1 standard drink = 0.6 oz pure alcohol) Overall Financial Resource Strain (CARDIA) Answe r Date Recorded Difficulty of Paying Living Expenses Not hard at all 11/30/2019 PHQ-2 Answer Date Recorded PHQ-2 Score 0 11/15/2018 Hunger Vital Sign Answer Date Recorded Worried About Running Out of Food in the Last Ye ar Never true 11/30/2019 Ran Out of Food in the Last Year Never true 11/30/2019 PRAPARE - Transportation Answer Date Re corded Lack of Transportation (Medical) No 11/30/2019 Lack of Transportation (Non-Medical) No 11/30/2019 Sex and Gender Information Value Date Recorded [...] has been complete d for the patient 01/04/2020 9:49 AM EDT A Body Mass Index follow-up plan has been documented for the patient 01/04/2020 10:13 AM EDT documented as of this encounter Care Teams Intelligence Specialist Relationship Specialty Start Date End Date William King MD [address] [place] [id number] PCP - General 06/09/12 11/08/21 documented as of this encounter
--- OUTSIDE RECORDS SUMMARY | 2025-03-19 15:22 | XMS_ITS | Encounter Summary ---
Author Organization [facility] Address [address] [facility], [address] [place] [address] Care Team Providers Care Sterilizer Operator Name Role Phone William King MD Primary Care Provider [phone] Reason for Visit * Reason Comments Medication Refill Encounter Details Date Type Department Care Team (Late st Contact Info) Description 10/01/2019 Refill Kingston Maya MD [address] [place] [address] [place] [address] Arnaud Jain, RECRUITING ASSISTANT - OPENER [employer] [address] [place] [address], [facility] [place] [address] Medication Refill Social History Tobacco [...] documented as of this encounter Care Teams Sterilizer Operator Relationship Specialty Start Date End Date William King MD [address] [place] [address] PCP - General 06/09/12 11/08/21 documented as of this encounter
--- OUTSIDE RECORDS SUMMARY | 2025-03-19 15:22 | XMS_ITS | Encounter Summary ---
Author Organization [facility] Address [address] [place] [address] Care Team Providers Care Paper Final Inspector Name Role Phone William King MD Unavailable [phone] William King MD Primary Care Provider [phone] Dina Ortiz MD Unavailable Ankit Bundy MD Primary Care Provider [phone] Source Comments In the event this information is protected by the Federal Confidentiality of Alcohol and Drug AbusePatient Records regulations: The Federal rules restrict any use of the information to criminally investigate or prosecute any alcohol or drug abuse patient.[facility] Encounter Details Date Type Department Care Team (Late st Contact Info) Description 01/13/2024 Patient Msg [facility] [address] [place] [address] Provider, Ccf Scheduling post op appt Social History Tobacco Use Types Packs/Day Years [...] often do you attend chur ch or sikh services? More than 4 times [...] Answer Date Recorded PHQ-2 score 6 12/29/2020 [facility] of Occupat ional Health - Occupational [...] place to sleep or slept in a nursing home (including now)? No 12/29/2020 Area Deprivation Index Answer Date Randolph rded National Score (1-100), lower number is lower ri sk 63 09/21/2023 State Score (1-10), lower number is lower risk 4 09/21/2023 Data from: https://www.neighborhoodatlas.medicine.[facility].edu/. Last address used for calculation [address] [...] 9:15 AM EDT Office Visit Urology [address] [place] [phone] Alex Ricks MD [address] [place], [place] [address] Msg left to reschedule apt - 05/14/2025 11:00 AM EDT Office Visit Urology [address] [address] Alex Ricks MD [address] [place] [address] 1 month follow up check infected innerstem 05/20/2025 11:40 AM EDT [facility] INT NATIONAL CONSULT MAIN [address] [place] [address] Broderick Martinez MD [address] [place] [address] 6 month follow up documented as of this encounter Visit Diagnoses Not on filedocumented in this encounter Care Teams Paper Final Inspector Relationship Specialty Start Date End Date William King MD [address] [place] [address] [place] [address] PCP - General Internal Medicine 06/08/21 02/06/24 Ankit Bundy MD [address] [place] [address] PCP - General Family Medicine 02/07/24 William King MD [address] [place] [address] [place] [address] Referring Internal Medicine 06/08/21 02/06/24 Dina Ortiz MD [address] [place] [address] Referring Urology 09/14/23 documented as of this encounter
--- OUTSIDE RECORDS SUMMARY | 2025-03-19 15:22 | XMS_ITS | Encounter Summary ---
Author Organization [facility] Address [address] [place] [address] Care Team Providers Care Loss Prevention Coordinator Name Role Phone William King MD Unavailable [phone] William King MD Primary Care Provider [phone] Dina Ortiz MD Unavailable Ankit Bundy MD Primary Care Provider [phone] Source Comments In the event this information is protected by the Federal Confidentiality of Alcohol and Drug AbusePatient Records regulations: The Federal rules restrict any use of the information to criminally investigate or prosecute any alcohol or drug abuse patient.[facility] Encounter Details Date Type Department Care Team (Late st Contact Info) Description 01/17/2021 Get Medical Advice Neurology [address] [place] [address] Vrea Burt MD [address] [place] [address] RE: Non-Urgent Medical Question Social History [...] How often do you attend chur or holiness services? More than 4 times per year [...] Answer Date Recorded PHQ-2 score 6 12/29/2020 [facility] of Occupat ional Health - Occupational [...] place to sleep or slept in a custodial (including now)? No 12/29/2020 Area Deprivation Index Answer Date Randolph rded National Score (1-100), lower number is lower ri sk Not on file 11/13/2020 State Score (1-10), lower number is lower risk N ot on file 11/13/2020 Data from: https://www.neighborhoodatlas.medicine.[facility].edu/. Last address used for calculation [...] 9:15 AM EDT Office Visit Urology [address] [address] Alex Ricks MD [address] [address] Msg left to reschedule apt - 05/14/2025 11:00 AM EDT Office Visit Urology [address] [address] Alex Ricks MD [address] [address] 1 month follow up check infected innerstem 05/20/2025 11:40 AM EDT [facility] INT NATIONAL CONSULT MAIN [address] [facility] [place], [place] [phone] Broderick Martinez MD [address] [place] [address] 6 month follow up documented as of this encounter Visit Diagnoses Not on filedocumented in this encounter Care Teams Loss Prevention Coordinator Relationship Specialty Start Date End Date William King MD [address] [place] [address] PCP - General Internal Medicine 06/08/21 02/06/24 Ankit Bundy MD [address] [place] [address] PCP - General Family Medicine 02/07/24 William King MD [address] [place] [address] Referring Internal Medicine 06/08/21 02/06/24 Dina Ortiz MD [address] [place] [address] Referring Urology 09/14/23 documented as of this encounter
--- OUTSIDE RECORDS SUMMARY | 2025-03-19 15:22 | XMS_ITS | Encounter Summary ---
Author Organization [facility] Address [facility] [place] [address] Care Team Providers Care Grounds Maintenance Supervisor Name Role Phone Dina Ortiz MD Unavailable Ankit Bundy MD Primary Care Provider [phone] Source Comments In the event this information is protected by the Federal Confidentiality of Alcohol and Drug AbusePatient Records regulations: The Federal rules restrict any use of the information to criminally investigate or prosecute any alcohol or drug abuse patient.[facility] Encounter Details Date Type Department Care Team (Latest Contact Info) Description 06/15/2024 Get Medical Advice Urology [address] [place] [address] Radha Alexandre, STEAMFITTER SUPERVISOR.WOOD DRILLING MACHINE OPERATOR [address] [facility] [address] [place] [address] Appt for June [address] Teran in [place] Social History Tobacco Use Types Packs/Day Years [...] often do you attend chur ch or baptism services? More than 4 times per year 12/29/2020 Do you belong to any clubs o r organizations such as rastafari groups, unions, fraternal or athletic groups, or [...] Answer Date Recorded PHQ-2 score 6 12/29/2020 [facility] - Occupational Stress Questionnaire Answer Date [...] place to sleep or slept in a retirement (including now)? No 12/29/2020 Area Deprivation Index Answer Date Randolph rded National Score (1-100), lower number is lower ri sk 63 09/21/2023 State Score (1-10), lower number is lower risk 4 09/21/2023 Data from: https://www.neighborhoodatlas.medicine.[facility].edu/. Last address used for calculation [...] 9:15 AM EDT Office Visit Urology [address] [address] Alex Ricks MD [address] [place] [address] Msg left to reschedule apt - 05/14/2025 11:00 AM EDT Office Visit Urology [address] [address] Alex Ricks MD [address] [place] [address] 1 month follow up check infected innerstem 05/20/2025 11:40 AM EDT [facility] INT NATIONAL CONSULT MAIN [address] [place], [place] [phone] Broderick Martinez MD [address] [place], [place] [address] 6 month follow up documented as of this encounter Visit Diagnoses Not on filedocumented in this encounter Care Teams Grounds Maintenance Supervisor Relationship Specialty Start Date End Date Ankit Bundy MD [address] [place] [address] PCP - General Family Medicine 02/07/24 Dina Ortiz MD [address] [facility] [place] [address] Referring Urology 09/14/23 documented as of this encounter
--- OUTSIDE RECORDS SUMMARY | 2025-03-19 15:23 | XMS_ITS | Encounter Summary ---
Author Organization [facility] Address [address] [place] [address] Care Team Providers Care Mold Press Operator Name Role Phone Dina Ortiz MD Unavailable Ankit Bundy MD Primary Care Provider [phone] Source Comments In the event this information is protected by the Federal Confidentiality of Alcohol and Drug AbusePatient Records regulations: The Federal rules restrict any use of the information to criminally investigate or prosecute any alcohol or drug abuse patient.[facility] Encounter Details Date Type Department Care Team (Late st Contact Info) Description 08/20/2024 Get Medical Advice INTM NATIONAL CONSULT MAIN [address] [place] [address] Broderick Martinez MD [address] [place] [address] Followup Social History Tobacco Use Types Packs/Day Years [...] often do you attend chur ch or yazidism services? More than 4 times per year [...] Answer Date Recorded PHQ-2 score 6 12/29/2020 [facility] Questionnaire Answer Date Recorded [...] is lower risk 4 09/21/2023 Data from: https://www.neighborhoodatlas.medicine.[facility].edu/. Last address used for calculation [address] [...] 9:15 AM EDT Office Visit Urology [address] [place] [address] Alex Ricks MD [address] [place] [address] Msg left to reschedule apt - 05/14/2025 11:00 AM EDT Office Visit Urology [address] [address] lAex Ricks MD [address] [place] [address] 1 month follow up check infected innerstem 05/20/2025 11:40 AM EDT [facility] IN[facility] NATIONAL CONSULT MAIN [address] [place], [place] [address] Broderick Martinez MD [address] [place], [place] [address] 6 month follow up documented as of this encounter Visit Diagnoses Not on filedocumented in this encounter Care Teams Mold Press Operator Relationship Specialty Start Date End Date Ankit Bundy MD [address] [facility] [place] [address] PCP - General Family Medicine 02/07/24 Dina Ortiz MD [address] [facility] [place] [address] Referring Urology 09/14/23 documented as of this encounter
--- OUTSIDE RECORDS SUMMARY | 2025-03-19 15:23 | XMS_ITS | Encounter Summary ---
Author Organization [facility] Address [facility] [place] [address] Care Team Providers Care Superintendent Fish Hatchery Name Role Phone Dina Ortiz MD Unavailable Ankit Bundy MD Primary Care Provider [phone] Source Comments In the event this information is protected by the Federal Confidentiality of Alcohol and Drug AbusePatient Records regulations: The Federal rules restrict any use of the information to criminally investigate or prosecute any alcohol or drug abuse patient.[facility] Encounter Details Date Type Department Care Team (Late st Contact Info) Description 09/27/2024 Get Medical Advice Urology [address] [address] Sally Dennis PA-C [address] [place] [address] [address] Ricks Social History Tobacco Use Types Packs/Day Years [...] often do you attend chur ch or scientology services? More than 4 times per year 12/29/2020 Do you belong to any clubs o r organizations such as jewish groups, unions, fraternal or athletic groups, or [...] Answer Date Recorded PHQ-2 score 6 12/29/2020 [facility]ational Stress Questionnaire Answer Date [...] place to sleep or slept in a half-way (including now)? No 12/29/2020 Area Deprivation Index Answer Date Randolph rded National Score (1-100), lower number is lower ri sk 63 09/21/2023 State Score (1-10), lower number is lower risk 4 09/21/2023 Data from: https://www.neighborhoodatlas.medicine.[facility].edu/. Last address used for calculation [address] [...] 9:15 AM EDT Office Visit Urology [address] [address] Alex Ricks MD [address] [facility] [address] [place] [address] Msg left to reschedule apt - 05/14/2025 11:00 AM EDT Office Visit Urology [address] [address] Alex Ricks MD [address] [place] [address] 1 month follow up check infected innerstem 05/20/2025 11:40 AM EDT [facility] INT NATIONAL CONSULT MAIN [address] [place], [place] [phone] Broderick Martinez MD [address] [place] [address] 6 month follow up documented as of this encounter Visit Diagnoses Not on filedocumented in this encounter Care Teams Superintendent Fish Hatchery Relationship Specialty Start Date End Date Ankit uBndy MD [address] [place] [address] PCP - General Family Medicine 02/07/24 Dina Ortiz MD [address] [address] Referring Urology 09/14/23 documented as of this encounter
--- OUTSIDE RECORDS SUMMARY | 2025-03-19 15:23 | XMS_ITS | Encounter Summary ---
Author Organization [facility] Address [address] [facility], [address] [place] [address] Care Team Providers Care Metal Pattern Maker Name Role Phone William King MD Primary Care Provider [phone] Reason for Visit * Reason Comments Medication Refill Encounter Details Date Type Department Care Team (Late st Contact Info) Description 03/20/2018 Refill Kingston Maya MD [address] [place] [address] William King MD [address] [id number] Medication Refill Social History Tobacco Use Types [...] has been complete d for the patient 03/16/2018 8:12 AM EDT documented as of this encounter Care Teams Metal Pattern Maker Relationship Specialty Start Date End Date William King MD [address] [place] [address] PCP - General 06/09/12 11/08/21 documented as of this encounter
--- OUTSIDE RECORDS SUMMARY | 2025-03-19 15:23 | XMS_ITS | Encounter Summary ---
Author Organization [facility] Address [address], [address] [place] [address] Care Team Providers Care Propeller Engineer Name Role Phone William King MD Primary Care Provider [phone] Reason for Referral * Imaging (Routine) - Closed Specialty Diagnoses / Procedures Referred By Debra zamorano Referred To Contact Radiology Diagnoses Spinal stenosis, lumbar region, with neurogenic claudication Lumbar spine tumor Procedures MRI LUMBAR SPINE W WO CONTRAST CA MRI, LUMBAR SPINE COMBO Laura Sanchez APRN - CNP Phone: tel: fax: Referral ID Status Reason Start Date Expiration Date Visits Re quested Visits Authorized [id number] Closed 01/30/2021 01/30/2022 1 1 Encounter Details Date Type Department Care Team (Late st Contact Info) Description 01/30/2021 Transcribe Orders Reeves Pre Access [address] [id number] Laura Sanchez APRN - CNP [address] [id number] Spinal stenosis, lumbar region, with neurogenic claudication (Primary Dx); Lumbar spine tumor Social History Tobacco Use Types Packs/Day Years Used Date Smoking Tobacco: Never Smokeless Tobacco: Never Alcohol Use Standard Drinks/Week Comments Yes 29.2 (1 standard drink = 0.6 oz pure alcohol) Overall Financial Resource Strain (CARDIA) Answe r Date Recorded Difficulty of Paying Living Expenses Not hard at all 11/30/2019 PHQ-2 Answer Date Recorded PHQ-9 Total Score 0 12/01/2020 Hunger Vital Sign Answer Date Recorded Worried [...] on file documented as of this encounter Results * MRI LUMBAR SPINE W WO CONTRAST (02/11/2021 11:37 AM EDT) Anatomical Region Laterality Modality T-spine, L-spine, Pelvis Magneti c Resonance 02/11/2021 11:3 9 AM EDT Impressions 02/11/2021 12:34 PM EDT Posterior fixation at L1-2 and L5-S1 without hardware complication. Multilevel degenerative change with moderate right foraminal narrowing at L2-3, mild left and moderate right foraminal narrowing at L4-5, and moderate to severe right foraminal narrowing at L5-S1. Narrative 02/11/2021 12:34 PM EDT EXAMINATION: MRI OF THE LUMBAR SPINE WITHOUT [...] is moderate to severe right foraminal narrowing. Procedure Note Sam Huang MD - 02/11/2021 EXAMINATION: MRI OF THE LUMBAR SPINE WITHOUT AND WITH CONTRAST 02/11/2021 10:48 am TECHNIQUE: Multiplanar multisequence MRI of the lumbar spine was performed withoutand with the administration of intravenous contrast. COMPARISON: None. HISTORY: ORDERING SYSTEM PROVIDED HISTORY: Spinal stenosis, lumbar region, with neurogenic claudication FINDINGS: BONES/ALIGNMENT: Vertebral body heights are maintained. There is age-appropriate bone marrow signal. There is posterior hardware fusionat the L1-2 level. There is left sided posterior fusion at the L5-K7uoyyz. There is degenerative disc disease at the remaining levels with loss ofdisc signal. There is no significant disc space narrowing. There is no spondylolisthesis. SPINAL CORD: The conus medullaris is normal in caliber and signal and terminates at L1. The cauda equina is unremarkable. SOFT TISSUES: Posterior paraspinal soft tissues are unremarkable. Thereis no abnormal postcontrast enhancement appreciated. The visualizedabdominal structures are unremarkable. L1-L2: There is artificial disc material with posterior laminectomy.There is no canal stenosis or foraminal narrowing. L2-L3: There is a circumferential disc bulge with facet hypertrophy.There is no canal stenosis or left foraminal narrowing. There is moderateright foraminal narrowing. L3-L4: There is a circumferential disc bulge with facet and ligamentous hypertrophy. There is no canal stenosis or foraminal narrowing. L4-L5: There is a circumferential disc bulge with facet and ligamentous hypertrophy. There is no significant canal stenosis. There is narrowingof the lateral recesses. There is mild left and moderate right foraminal narrowing. L5-S1: There is artificial disc material with posterior laminectomy.There is no canal stenosis. There is no significant left-sided foraminal narrowing. There is moderate to severe right foraminal narrowing. IMPRESSION: Posterior fixation at L1-2 and L5-S1 without hardware complication. Multilevel degenerative change with moderate right foraminal narrowingat L2-3, mild left and moderate right foraminal narrowing at L4-5, andmoderate to severe right foraminal narrowing at L5-S1. 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, soft tissue, and skin Spinal stenosis, lumbar region, with neurogenic claudication Lumbar spine tumor Neoplasm of unspecified nature of bone, soft tissue, and skin documented in this encounter Additional Health Concerns Assessment Noted Time A fall risk assessment has been complete d for the patient 05/29/2020 8:40 AM EDT A Body Mass Index follow-up plan has been documented for the patient 12/01/2020 9:15 AM EDT documented as of this encounter Care Teams Propeller Engineer Relationship Specialty Start Date End Date William King MD [address] [place] [address] PCP - General 06/09/12 11/08/21 documented as of this encounter
--- OUTSIDE RECORDS SUMMARY | 2025-03-19 15:23 | XMS_ITS | Encounter Summary ---
Author Organization [facility] Address [address] [place] [address] Care Team Providers Care Music Intern Name Role Phone Ankit Bundy MD Primary Care Provider [phone] Ankit Bundy MD Unavailable Encounter Details Date Type Department Care Team (Late st Contact Info) Description 07/26/2024 Clinisync Result Encounter [facility] External Department Unsolicited Provider, Generic External Data Social History Tobacco Use Types Packs/Day Years Used Date Smoking Tobacco: Never Passive Smoke Exposure: Never Smokeless Tobacco: Never Alcohol Use Standard Drinks/Week Comments Not Currently 0 (1 standard drink = 0.6 oz pur e alcohol) Humiliation, Afraid, Rape, and Kick questionnair e [...] neighbors? More than three times a week 08/16/2023 How often do you get togethe r with friends or relatives? Patient declined 08/16/2023 How often do you attend chur or jainism services? Patient declined 08/16/2023 Do you belong to any clubs o r organizations such as christian groups, unions, fraternal or athletic groups, or school groups? No 08/16/2023 How often do you attend meet ings of the clubs or organizations you belong to? Patient declined 08/16/2023 Are you , , di vorced, , never , or living with a partner? 08/16/2023 AUDIT-C Answer Date Recorded Q1: How often do you have a drink containing alcohol? 4 or more times a week 08/16/2023 Q2: How many drinks containi ng alcohol do you have on a typical day when you are drinking? 1 or 2 Q3: How often do you have si x or more drinks on one occasion? Never 08/16/2023 Overall Financial Resource Strain (CARDIA) Answe r Date Recorded How hard is it for you to pa y for the very basics like food, housing, medical care, and heating? Not very hard 08/16/2023 PHQ-2 Answer Date Recorded Patient Health Questionnaire-2 Score 2 03/06/2024 [facility] - Occupational Stress Questionnaire Answer Date Recorded Do you feel stress - tense, restless, nervous, or anxious, or unable to sleep at night because your mind is troubled all the time - these days? To some extent 08/16/2023 Exercise Vital Sign Answer Date Recorde d On average, how many days pe r week do you engage in moderate to strenuous exercise (like a brisk walk)? 2 days 08/16/2023 On average, how many minutes do you engage in exercise at this level? 20 min 08/16/2023 Hunger Vital Sign Answer Date Recorded Within the past 12 months, y ou worried that your food would run out before you got the money to buy more. Never true 08/16/19 24 Within the past 12 months, t he food you bought just didn't last and you didn't have money to get more. Never true 08/16/2023 PRAPARE - Transportation Answer Date Re corded In the past 12 months, has l ack of transportation kept you from medical appointments or from getting medications? Patient declined 08/16/2023 In the past 12 months, has l ack of transportation kept you from meetings, work, or from getting things needed for daily living? Patient declined 08/16/2023 Housing Stability Vital Sign Answer John [...] to sleep or slept in a senior living (including now)? No 08/16/2023 Sex and Gender Information Value Date Recorded Sex Assigned at Male 09/03/2024 11:08 AM EST Legal Sex Male 6:56 PM EDT Gender Identity Male 09/03/2024 11:08 AM EST Sexual Orientation Straight 09/03/2024 11 :08 AM EST documented as of this encounter Plan of Treatment Not on file documented as of this encounter Goals Goal Patient Goal Type Associated Problems Recent Progress Patient-Stated? Author Help patient manage antidepressant medication Care Plan Patient on antidepressant monitoring plan No J LUIS LEA Baseline PHQ-9 Care Plan Baseline PHQ-9 J LUIS Perla documented as of this encounter Procedures Procedure Name Priority Date/Time Associated Diagnosis Comments CT HEAD/BRAIN WO 07/26/2024 3:03 PM EST VITAMIN B12 Routine 07/26/2024 2:06 PM EST SRMCOH PROSTATE SPECIFIC ANTIGEN SCRN Routine 07/26/2024 2:06 PM EST ALL THYROID STIM HORMONE Routine 07/26/2024 2:06 PM EST ALL LIPID PROFILE (FASTING) Routine 07/26/2024 2:06 PM EST documented in this encounter Results * CT HEAD/BRAIN WO (07/26/2024 3:03 PM EST) Anatomical Region Laterality Modality Radiographic Anna Marie ging 07/26/2024 3:03 PM EST Narrative 07/26/2024 3:05 [place] [address] CT Scan Report Signed Patient: SARMAD ALMEIDA MR#: [id number] : 1950 Acct:[id number] Age/Sex: 73 / M ADM Date: 07/26/24 Loc: CT Attending Dr: StevenStaff Physician Espino Ordering Physician: Enmanuel Ortega M.D. Date of Service: 07/26/24 Procedure(s): CT head/brain wo con Accession Number(s): [id number] cc: Ankit Bundy M.D. [address] [id number] Patient Name: SARMAD ALMEIDA MRN: [id number] date: 1950 Sex: M Assigned Patient Location: CT Current Patient Location: CT Accession/Order Number: [id number] Exam Date: 07/26/2024 14:20 Report Date: 07/26/2024 15:03 At the request of: NON-STAFF PHYSICIAN Procedure: CT head/brain wo con CT head/brain wo con, 07/26/2024 2:20 PM EST INDICATION: Mental Status Change, Cognitive Change COMPARISON: There is no appropriate prior study for comparison. TECHNIQUE: Axial CT images of the brain from skull base to vertex, including portions of the face and sinuses, were obtained without contrast . Multiplanar reformatted images were generated and reviewed as needed. Dose reduction techniques were achieved by using automated exposure control and/or adjustment of mA and/or kV according to patient size and/or use of iterative reconstruction technique. FINDINGS: The cerebral sulci as well as ventricular system are appropriate for age. There is no intracranial mass, mass effect, midline shift, intra or extra-axial fluid collection or hemorrhage. Periventricular and centrum semiovale hypodensities are most likely consistent with microvascular ischemic changes. The visualized portions of orbits, mastoid air cells as well as paranasal sinuses are unremarkable. There is no suspicious osteolytic or osteoblastic lesion. CT/CT head/brain wo con IMPRESSION: No acute intracranial process is noted. Electronically authenticated by: BOB JARAMILLO Date: 07/26/2024 15:03 Dictated By: Bob Jaramillo M.D. Signed By: 07/26/24 1505 DD/ 1503 TD/TT: Strategic Account Director: Procedure Note Radiology, Radiologist, MD - 07/26/2024 [place] [address] CT Scan Report Signed Patient: SARMAD ALMEIDA AMR#: [id number] : 1950cct:[id number] Age/Sex: 73 / MADM Date: 07/26/24 Loc: CT Attending Dr: Non-Staff Physician Srinivas Ordering Physician: Enmanuel Ortega M.D. Date of Service: 07/26/24 Procedure(s): CT head/brain wo con Accession Number(s): [id number] cc: Ankit Bundy M.D. [address] [place] [address] Patient Name: SARMAD ALMEIDA MRN: [id number] date: 1950 Sex: M Assigned Patient Location: CT Current Patient Location: CT Accession/Order Number: [id number] Exam Date: 07/26/2024 14:20 Report Date: 07/26/2024 15:03 At the request of: NON-STAFF PHYSICIAN Procedure: CT head/brain wo con CT head/brain wo con, 07/26/2024 2:20 PM EST INDICATION: Mental Status Change, Cognitive Change COMPARISON: There is no appropriate prior study for comparison. TECHNIQUE: Axial CT images of the brain from skull base to vertex,including portions of the face and sinuses, were obtained without contrast .Multiplanar reformatted images were generated and reviewed as needed. Dose reduction techniques were achieved by using automated exposurecontrol and/or adjustment of mA and/or kV according to patient size and/or use of iterative reconstruction technique. FINDINGS: The cerebral sulci as well as ventricular system are appropriate for age. There is no intracranial mass, mass effect, midline shift, intra or extra-axial fluid collection or hemorrhage. Periventricular and centrum semiovale hypodensities are most likely consistent with microvascular ischemicchanges. The visualized portions of orbits, mastoid air cells as well as paranasal sinuses are unremarkable. There is no suspicious osteolytic or osteoblastic lesion. CT/CT head/brain wo con IMPRESSION: No acute intracranial process is noted. Electronically authenticated by: BOB JARAMILLO Date: 07/26/2024 15:03 Dictated By: Bob Jaramillo M.D. Signed By:07/26/24 1505 DD/ 1503 TD/TT: Strategic Account Director: Generic External Data Provider IMG XR PROCEDURES Final Result * (ABNORMAL) VITAMIN B12 (07/26/2024 2:06 PM EST) VITAMIN B12 201(A) 232 - 1245 pg/mL TB Comment: Performed at: - Lab[address] [id number] [place]: Cale Ayers PhD, Phone: [phone] 07/26/2024 2:06 PM EST 07/26/2024 2:08 PM EST Narrative [facility] - 07/27/2024 8:10 AM EST Generic External Data Provider LAB BLOOD ORDERAB LES Final Result [facility] * (ABNORMAL) ALL LIPID PROFILE (FASTING) (07/26/2024 2:06 PM EST) TRIGLYCERIDES 123 <=150 mg/dL [facility] CHOLESTEROL 149 <=200 mg/dL [facility] HDL CHOLESTEROL 76(H) 40 - 60 mg/dL [facility] Comment: > or =60 mg/dl - LOW CARDIOVASCULAR RISK <40 mg/dl - HIGH CARDIOVASCULAR RISK LDL CHOLESTEROL CALCULATED 49.0 mg/dL TB Comment: <100 mg/dl OPTIMAL 100-129 mg/dl NEAR OR ABOVE OPTIMAL 130-159 mg/dl BORDERLINE HIGH 160-189 mg/dl HIGH >190 mg/dl VERY HIGH VLDL CHOLESTEROL 24.6 mg/dL [facility] CHOL HDL RATIO 2.0 [facility] Comment: 3.3 - 4.4 LOW RISK 4.4 - 7.1 AVERAGE RISK 7.1 - 11.0 MODERATE RISK >11.0 HIGH RISK 07/26/2024 2:06 PM EST 07/26/2024 2:08 PM EST Narrative [facility] - 07/26/2024 3:47 PM EST Ankit Bundy MD [facility] Final Result Performing Organization Address [facility] Co de Phone Number [facility] * (ABNORMAL) SRMCOH PROSTATE SPECIFIC ANTIGEN SCRN (07/26/2024 2:06 PM EST) PROSTATE SPECIFIC ANTIGEN SCRN 12.96(H) <=4.00 ng/mL [facility] 07/26/2024 2:06 PM EST 07/26/2024 2:08 PM EST Narrative [facility] - 07/26/2024 3:12 PM EST Ankit Bundy MD CLINISYCLARENCE Final Result Performing Organization Address [facility] de Phone Number [facility] * (ABNORMAL) ALL THYROID STIM HORMONE (07/26/2024 2:06 PM EST) THYROID STIMULATING HORMONE 10.216(H) 0.358 - 3.740 uIU/mL [facility] 07/26/2024 2:06 PM EST 07/26/2024 2:08 PM EST Narrative [facility] - 07/26/2024 3:11 PM EST Generic External Data Provider [facility] F inal Result Performing Organization Address [facility] Co de Phone Number [facility] documented in this encounter Visit Diagnoses Not on filedocumented in this encounter Additional Health Concerns Active Problems Noted Date Diagnosed Date Patient on antidepressant monitoring plan 2023 Baseline PHQ-9 11/30/2023 Assessment Noted Time PHQ-9 Depression Total Score: 8 03/13/ 24 1:00 PM EDT documented as of this encounter Care Teams Music Intern Relationship Specialty Start Date End Date Ankit Bundy MD [address] [place] [id number] PCP - General Family Medicine 10/20/23 Ankit Bundy MD [address] [place] [address] PCP - [employer] 12/14/23 documented as of this encounter
--- OUTSIDE RECORDS SUMMARY | 2025-03-19 15:23 | XMS_ITS | Encounter Summary ---
Author Organization [facility] Address [address], [address] [place] [address] Care Team Providers Care Correctional Medicine Physician Name Role Phone William King MD Primary Care Provider [phone] Reason for Visit * Reason Comments Medication Refill Encounter Details Date Type Department Care Team (Late st Contact Info) Description 09/15/2018 Refill [facility] [address] [place] [address] William King MD [address] [place], [place] [id number] Medication Refill Social History Tobacco Use Types [...] has been complete d for the patient 06/30/2018 2:21 PM EST documented as of this encounter Care Teams Correctional Medicine Physician Relationship Specialty Start Date End Date William King MD [address] [id number] PCP - General 06/09/12 11/08/21 documented as of this encounter
--- OUTSIDE RECORDS SUMMARY | 2025-03-19 15:23 | XMS_ITS | Encounter Summary ---
Author Organization [facility] Address [address] [place] [address] Care Team Providers Care Chain Link Fence Installer Name Role Phone Ankit Bundy MD Primary Care Provider [phone] Ankit Bundy MD Primary Care Provider [phone] Ankit Bundy MD Unavailable Reason for Visit * Reason Comments Med Change Request Encounter Details Date Type Department Care Team (Late st Contact Info) Description 08/21/2023 Refill [facility] [address] [place] [address] Shaikh Chilel MD [address] [place] [address] Type 2 diabetes mellitus with hyperglycemia, without long-term current use of insulin (HCC) Social History Tobacco Use Types Packs/Day Years [...] declined 08/16/2023 How often do you attend [facility] or evangelical services? Patient declined 08/16/2023 Do you belong to any clubs o r organizations such as worship groups, unions, fraternal or athletic groups, or [...] care, and heating? Not very hard 08/16/2023 [facility] - Occupational Stress [...] place to sleep or slept in a mcc (including now)? No 08/16/2023 Sex and Gender Information Value Date Recorded Sex Assigned at Male 09/03/2024 11:08 AM EST Legal Sex Male 6:56 PM EDT Gender Identity Male 09/03/2024 11:08 AM EST Sexual Orientation Straight 09/03/2024 11 :08 AM EST documented as of this encounter Miscellaneous Notes * Telephone Encounter - Shaikh Ranjana MD - 08/22/2023 9:57 AM EST Approving, but needs appt for additional refills. documented in this encounter Plan of Treatment Not on file documented as of this encounter Visit Diagnoses Diagnosis Type 2 diabetes mellitus with hyperglycemia, without long-term current use of insulin (HCC) documented in this encounter Care Teams Chain Link Fence Installer Relationship Specialty Start Date End Date Ankit Bundy MD PCP - General Family Medicine 08/10/23 10/19/23 Ankit Bundy MD [address] [place] [phone] PCP - General Family Medicine 10/20/23 Ankit Bundy MD [address] [place] [phone] PCP - [employer] 12/14/23 documented as of this encounter
--- OUTSIDE RECORDS SUMMARY | 2025-03-19 15:23 | XMS_ITS | Encounter Summary ---
Author Organization [facility] Address [facility] [id number] Care Team Providers Care Custodial Manager Name Role Phone Pcp, Nell MANAGER STAR Primary Care Provider UnavailWilliam Cano MD Unavailable [phone] William King MD Primary Care Provider [phone] Dina Ortiz MD Unavailable Ankit Bundy MD Primary Care Provider [phone] Source Comments In the event this information is protected by the Federal Confidentiality of Alcohol and Drug AbusePatient Records regulations: The Federal rules restrict any use of the information to criminally investigate or prosecute any alcohol or drug abuse patient.[facility] Encounter Details Date Type Department Care Team (Latest Contact Info) Description 11/12/2004 Prob Sum Review Provider, Cckaroline Social History Tobacco Use Types Packs/Day Years [...] 9:15 AM EDT Office Visit Urology [address] [place] [address] Alex Ricks MD [address] [facility] [address] [place], [place] [phone] Msg left to reschedule apt - 05/14/2025 11:00 AM EDT Office Visit Urology [address] [place] [address] Alex Ricks MD [address] [id number] 1 month follow up check infected innerstem 05/20/2025 11:40 AM EDT [facility] [address] [place] [address] Broderick Martinez MD [address] [place] [address] 6 month follow up documented as of this encounter Visit Diagnoses Not on filedocumented in this encounter Care Teams Custodial Manager Relationship Specialty Start Date End Date Nell Barr APRN PCP - General 05/26/04 06/14/05 William King MD [address] [place] [address] [place] [phone] PCP - General Internal Medicine 06/08/21 02/06/24 Ankit Bundy MD [address] [place] [address] PCP - General Family Medicine 02/07/24 William King MD [address] [address] Referring Internal Medicine 06/08/21 02/06/24 Dina Ortiz MD [address] [place] [address] Referring Urology 09/14/23 documented as of this encounter
--- OUTSIDE RECORDS SUMMARY | 2025-03-19 15:23 | XMS_ITS | Clinical Summary ---
Author Organization [facility] Address [address] [facility] [facility], [address] [place] [address] Care Team Providers Care Yarn Bleaching Machine Operator Name Role Phone Unavailable Primary Care Provider Unavailabl e Allergies Active Allergy Reactions Criticality Noted Date Comments Amoxicillin 11/07/2013 Amoxicillin-Pot Clavulanate Nausea Only 014 Shellfish-Derived Products 0 Medications Blood Glucose Monitoring Suppl (EMBRACE PRO GLUCOSE METER) LINDA Embrace glucose meter/ Dispense 1 meter/ Dx: E11.9 1 Device 7 Active glucose blood test strips (ASCENSIA AUTODISC ;ONE TOUCH ULTRA TEST ) strip 1 each by In Vitro route daily Pt uses freestyle freedom lite and true metrix blood glucose test strips 100 each 3 7 Active ferrous sulfate (IRON 325) 325 (65 Fe) MG tablet Take 1 tablet by mouth 2 times daily 180 tablet 1 0 Active losartan (COZAAR) 50 MG tablet Take 1 tablet by mouth daily 90 tablet 3 0 Active allopurinol (ZYLOPRIM) 300 MG tablet Take 1 tablet by mouth daily 90 tablet 3 1 Active amLODIPine-delonte zepril (LOTREL) 5-10 MG per capsule Take 1 capsule by mouth daily 90 capsule 3 1 Active atorvastatin (LIPITOR) 20 MG tablet Take 1 tablet by mouth daily 90 tablet 3 1 Active SITagliptin (JANUVIA) 100 MG tablet Take 1 tablet by mouth daily 90 tablet 3 1 Active venlafaxine (EFFEXOR XR) 150 MG extended release capsule Take 1 capsule by mouth daily Taken with 75 mg capsule 90 capsule 3 1 Active venlafaxine (EFFEXOR XR) 75 MG extended release capsule Take 1 capsule by mouth daily Take along with 150 mg tablet 90 capsule 3 1 Active metFORMIN (GLUCOPHAGE) 1000 MG tablet Take 1 tablet by mouth 2 times daily (with meals) 180 tablet 3 1 Active buPROPion (WELLBUTRIN XL) 300 MG extended release tablet Take 1 tablet by mouth every morning 90 tablet 3 1 Active tadalafil (CIALIS) 5 MG tablet Take 1 tablet by mouth daily 90 tablet 3 1 Active glimepiride (AMARYL) 2 MG tablet Take 2 tablets by mouth every morning AND 1 tablet nightly. 180 tablet 2 1 Active levothyroxine (SYNTHROID) 100 MCG tablet Take 1 tablet by mouth daily 90 tablet 3 1 Active tiZANidine (ZANAFLEX) 4 MG tablet Take 1 tablet by mouth 3 times daily as needed (muscle spasms) 90 tablet 1 Active meloxicam (MOBIC) 15 MG tablet Take 1 tablet by mouth daily 30 tablet 3 1 Active Active Problems Problem Noted Date Diagnosed Date Positive FIT (fecal immunochemical test) 020 Type 2 diabetes mellitus without complication Hyperlipidemia Hypertension Gout Resolved Problems Problem Noted Date Diagnosed Date Resolved Date Erectile dysfunction 017 Osteoarthritis 09/20/2016 Other psoriasis 09/20/2016 Anxiety 09/20/2016 Depression 09/20/2016 Kidney stone 09/20/2016 Immunizations Immunization Administration Dates Next Due Tetanus 08/15/2010 Family History Medical History Relation Name Comments Diabetes Father Heart Disease Father Heart Disease Mother High Blood Pressure Mother Stroke Mother Relation Name Status Comments Father Mother Social History Tobacco Use Types Packs/Day Years Used Date Smoking Tobacco: Never Smokeless Tobacco: Never Tobacco Cessation:Counseling Given: Yes Alcohol Use Standard Drinks/Week Comments Yes 29.2 (1 standard drink = 0.6 oz pure alcohol) Overall Financial Resource Strain (CARDIA) Answe r Date Recorded How hard is it for you to pa y for the very basics like food, housing, medical care, and heating? Not hard at all 07/20/2021 PHQ-2 Answer Date Recorded PHQ-9 Total Score 1 07/20/2021 Hunger Vital Sign Answer Date Recorded Within the past 12 months, y ou worried that your food would run out before you got the money to buy more. Never true 07/20/20 21 Within the past 12 months, t he food you bought just didn't last and you didn't have money to get more. Never true 07/20/2021 PRAPARE - Transportation Answer Date Re corded Lack of Transportation (Medical) No 11/30/2019 Lack of Transportation (Non-Medical) No 11/30/2019 Sex and Gender Information Value Date Recorded Sex Assigned at Male 11/28/2019 7:59 PM EDT Legal Sex Male 6:43 PM EST Gender Identity Male 11/28/2019 7:59 PM EDT Sexual Orientation Straight 11/28/2019 7: 59 PM EDT Last Filed Vital Signs Vital Sign Reading Time Taken Comments Blood Pressure 139/79 07/20/2021 4:29 PM EST Pulse 105 07/20/2021 4:29 PM EST Temperature 36.4 C (97.5 F) 07/20/2021 4:29 PM EST Respiratory Rate 20 03/24/2020 12:02 PM EDT Oxygen Saturation 96% 12/22/2018 10:30 AM EDT Inhaled Oxygen Concentration - - Weight 86.7 kg (191 lb 3.2 oz) 07/20/2021 4:29 P M EST Height 175.3 cm (5' 9 ) 07/20/2021 4:29 PM EST Body Mass Index 28.24 07/20/2021 4:29 PM EST Plan of Treatment Not on file Insurance [facility]
--- OUTSIDE RECORDS SUMMARY | 2025-03-19 15:23 | XMS_ITS | Clinical Summary ---
Author Organization [facility] Address [address] [place] [address] Care Team Providers Care Paper Bundler Name Role Phone Dina Ortiz MD Unavailable Ankit Bundy MD Primary Care Provider [phone] Allergies Active Allergy Reactions Criticality Noted Date Comments Amoxicillin Unknown 04/13/2016 Amoxicillin-Pot Clavulanate Other: See Comments 04/13/2016 Nausea Medications allopurinol (ZYLOPRIM) 300 mg tablet Take 300 mg by mouth. 09/21/2018 Active atorvastatin (LIPITOR) 20 mg tablet Take 20 mg by mouth. 11/03/2020 Active metFORMIN (GLUCOPHAGE) 1,000 mg tablet Take 1,000 mg by mouth once daily. 09/21/2018 Active SITagliptin (JANUVIA) 100 mg tablet Take 100 mg by mouth once daily. 11/03/2020 Active buPROPion XL (WELLBUTRIN XL) 150 mg 24 hr tablet Take 150 mg by mouth. 11/03/2020 Active venlafaxine ER (EFFEXOR XR) 75 mg 24 hr capsule Take 75 mg by mouth once daily. 11/03/2020 Active CPAP/BIPAP/OTHE R autopap [id number] [facility] Design A tiffin 1 Each 02/06/2021 8 Active lisinopril (ZESTRIL) 10 mg tablet Take 10 mg by mouth once daily. Active GABAPENTIN, BULK, MISC 300 mg BID Active pantoprazole DR (PROTONIX) 40 mg tablet Take 40 mg by mouth two times a day. Active trospium (SANCTURA) 20 mg tablet Take 20 mg by mouth daily at bedtime. Active multivitamin tablet Take 1 tablet by mouth once daily. Active cyanocobalamin (VITAMIN B-12) 1,000 mcg tabIndications: B12 deficiency Take 1 tablet by mouth once daily. 100 tablet 3 08/27/2024 Active levothyroxine (SYNTHROID) 125 mcg tablet Take 1 tablet by mouth once daily. 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 Fall risk. HTN (hypertension) 01/23/2024 Assessment & Plan (02/21/2024 1:43 PM EDT): Assessment: stable and compliant with current medications Last 5 Encounter BP Readings: Date: BP: 02/09/2024 110/68 12/05/2023 136/86 09/21/2023 172/103 12/30/2020 116/73 12/30/2020 120/82 Assessment & Plan (01/23/2024 4:04 PM EDT): Assessment: controlled with meds HLD (hyperlipidemia) 01/23/2024 Assessment & Plan (02/21/2024 1:43 PM EDT): Assessment: stable with current medication regimen Assessment & Plan (01/23/2024 4:05 PM EDT): Assessment: controlled with meds Awaiting labs to be faxed Acquired hypothyroidism 01/23/2024 Assessment & Plan (02/21/2024 1:44 PM EDT): Assessment: stable with current medication regimen Assessment & Plan (01/23/2024 4:06 PM EDT): Assessment: controlled with synthroid Await labs to be faxed from dr Bundy office Depression 01/23/2024 Assessment & Plan (02/21/2024 1:45 PM EDT): Assessment: stable with current medication regimen Assessment & Plan (01/23/2024 4:07 PM EDT): Assessment: controlled with meds ELLEN on CPAP 01/23/2024 Assessment & Plan (02/21/2024 1:43 PM EDT): Assessment: CPAP compliant Assessment & Plan (01/23/2024 4:07 PM EDT): Assessment: ELLEN uses CPAP 2 of past 7 nights Incomplete emptying of bladder 11/11/2023 Assessment & Plan (02/21/2024 1:48 PM EDT): Assessment: straight caths multiple times daily. InterStim Peripheral Nerve Stimulation Stage 1 occurred on 02/14/24. Assessment & Plan (01/23/2024 4:07 PM EDT): Assessment: self straight caths 6-7 times per day GERD (gastroesophageal reflux disease) Assessment & Plan (02/21/2024 1:44 PM EDT): Assessment: Managed and stable with current medication. Denies difficulty swallowing or any bleeding. Anemia 08/02/2021 Assessment & Plan (02/21/2024 1:45 PM EDT): Assessment: Stable. Denies bleeding. 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 Assessment: Currently taking metformin, januvia 02/24/24 Encounters Date Type Department Care Team Description 03/04/2025 Get Medical Advice Urology [address] [address] Sally Dennis PA-C Modulator 01/10/2025 1:00 PM EDT Office Visit Urology [address] [facility] [address] [place] [address] Alex Ricks MD Incomplete emptying of bladder (Primary Dx) 01/08/2025 Travel 01/01/2025 Patient Outreach Urology [address] [address] Alex Ricks MD 01/01/2025 Get Medical Advice Urology [address] [facility] [address] [place] [address] Alex Ricks MD Appt from Last 3 Months Immunizations Immunization Administration Dates Next Due tetanus toxoid (TT) vaccine, unspecified formula tion 08/15/2010 Family History Medical History Relation Comments Heart disease Brother Heart disease Father Kidney Disease Mother Relation Status Comments Brother Father Mother Social History Tobacco Use Types Packs/Day Years Used Date Smoking Tobacco: Never Smokeless Tobacco: Never Tobacco Cessation:Counseling Given: Not Answered Alcohol Use Standard Drinks/Week Comments Yes 0 [...] any clubs o r organizations such as pentecostalism groups, unions, fraternal or athletic groups, or [...] place to sleep or slept in a alf (including now)? No 12/29/2020 Area Deprivation Index Answer Date Randolph rded National Score (1-100), lower number is lower ri sk 63 09/21/2023 State Score (1-10), lower number is lower risk 4 09/21/2023 Data from: https://www.neighborhoodatlas.medicine.[facility].edu/. Last address used for calculation [address] [...] Orientation Straight 04/21/2021 12 :59 AM EDT Last Filed Vital Signs Vital Sign Reading Time Taken Comments Blood Pressure 153/79 09/24/2024 11:22 AM EST Pulse 88 09/24/2024 11:22 AM EST Temperature 36 C (96.8 F) 03/01/2024 11:29 AM EDT Respiratory Rate 16 03/01/2024 12:00 PM EDT Oxygen Saturation 98% 03/01/2024 12:00 PM EDT Inhaled Oxygen Concentration - - Weight 83 kg (183 lb) 09/24/2024 11:22 AM EST Height 172.7 cm (5' 8 ) 09/24/2024 11:22 AM EST Body Mass Index 27.83 09/24/2024 11:22 AM EST Plan of Treatment Upcoming Encounters Date Type Department Care Team (Late st Contact Info) Description 04/23/2025 9:15 AM EDT Office Visit Urology [address] [address] Alex Ricks MD [address] [facility] [address] [place] [address] Msg left to reschedule apt - 05/14/2025 11:00 AM EDT Office Visit Urology [address] [address] Alex Ricks MD [address] [place] [address] 1 month follow up check infected innerstem 05/20/2025 11:40 AM EDT [facility] [address] [place] [address] Broderick Martinez MD [address] [place] [address] 6 month follow up Health Maintenance Due Date Last Done Comments Diabetic Foot Exam 11/05/1961 Dilated Retinal Exam 11/05/1961 Urine Albumin:Creatinine Ratio 11/05/1961 Anxiety Screening 11/05/1969 Pneumococcal Vaccine: 50+ (1 of 2 - PCV) 11/05/1970 CT Colonography 11/05/1996 Cologuard (FIT-DNA) 11/05/1996 Colonoscopy 11/05/1996 Sigmoidoscopy 11/05/1996 Shingrix Vaccine (1 of 2) 11/05/2001 LDL Cholesterol 11/21/2021 11/21/2020, 05/15, 02/27/2020, Additional history exists HbA1C 02/02/2022 08/04/2021, 07/16, 05/25/2021, Additional history exists Annual PCP Team Chronic Dise ase Visit 07/27/2022 07/27/2021 Colorectal Cancer Screening 08/16/2022 Fecal Occult Blood 08/16/2022 08/16/2021, 08/16/2021 Advance Directive Discussion 08/15/2024 Medicare Advantage Annual We llness Visit 08/15/2024 Influenza Vaccine (#1) 2025 RSV Vaccine (1 - 1-dose 75+ series) 11/05/2026 DTaP,Tdap,Td Vaccine (2 - Td or Tdap) 12/24/2034 12/24/2024 Hepatitis C Screening Completed 08/17/2021 Medical Devices Implanted Type Area Lacquer Machine Feeder Device Identifier Shelf Expiration Date Model / Serial / Lot Lead Intrstim Mri 28cm - [id number] Implanted:Qty: 1 on 02/09/2024 at [facility] Lead Pending: Back [employer] 06/20/2025 [id number] / / [id number] Interstim X Recharge Free Neurostimulator - [id number] Implanted:Qty: 1 on 03/01/2024 at [facility] Stimulator Right: Buttocks [employer] 05/12/2025 [id number] / [id number] / Insurance [employer] MEDICARE Care Teams Paper Bundler Relationship Specialty Start Date End Date Ankit Bundy MD [address] [place] [address] PCP - General Family Medicine 02/07/24 Dina Ortiz MD [address] [place] [address] Referring Urology 09/14/23
--- OUTSIDE RECORDS SUMMARY | 2025-03-19 15:23 | XMS_ITS | Encounter Summary ---
Author Organization [facility] Address [facility] [place] [id number] Care Team Providers Care Slot Editor Name Role Phone Dina Ortiz MD Unavailable Ankit Bundy MD Primary Care Provider [phone] Source Comments In the event this information is protected by the Federal Confidentiality of Alcohol and Drug AbusePatient Records regulations: The Federal rules restrict any use of the information to criminally investigate or prosecute any alcohol or drug abuse patient.[facility] Encounter Details Date Type Department Care Team (Late st Contact Info) Description 01/01/2025 Get Medical Advice Urology [address] [facility] [address] [place] [address] Alex Ricks MD [address] [facility] [address] [place] [address] Appt Social History Tobacco Use Types Packs/Day Years [...] often do you attend chur ch or mormonism services? More than 4 times per year 12/29/2020 Do you belong to any clubs o r organizations such as yazidism groups, unions, fraternal or athletic groups, or [...] Date Recorded PHQ-2 score 6 12/29/2020 [facility] of Occupat ional Health - Occupational Stress [...] slept in a usp (including now)? No 12/29/2020 Area Deprivation Index Answer Date Randolph rded National Score (1-100), lower number is lower ri sk 63 09/21/2023 State Score (1-10), lower number is lower risk 4 09/21/2023 Data from: https://www.neighborhoodatlas.medicine.[facility].edu/. Last address used for calculation [...] AM EDT documented as of this encounter Miscellaneous Notes * Telephone Encounter - Casimiro Mott MD - 01/25/2025 4:20 PM EDT Patient called, advised to increase the dosage of trospium to two tabs/ day. He tried to assess his PVR using catheter and was zero. Asked to do it one more time after upgrading the dosage. Reassured and wished speedy recovery Casimiro Mott MD Clinical Fellow documented in this encounter Plan of Treatment Upcoming Encounters Date Type Department Care Team (Late st Contact Info) Description 04/23/2025 9:15 AM EDT Office Visit Urology [address] [address] Alex Ricks MD [address] [facility] [address] [place] [address] Msg left to reschedule apt - 05/14/2025 11:00 AM EDT Office Visit Urology [address] [place] [address] Alex Ricks MD [address] [facility] [address] [place] [address] 1 month follow up check infected innerstem 05/20/2025 11:40 AM EDT [facility] [address] [place] [id number] Broderick Martinez MD [address] [place] [address] 6 month follow up documented as of this encounter Visit Diagnoses Not on filedocumented in this encounter Care Teams Slot Editor Relationship Specialty Start Date End Date Ankit Bundy MD [address] [place] [address] PCP - General Family Medicine 02/07/24 Dina Ortiz MD [address] [facility] [place] [place] [address] Referring Urology 09/14/23 documented as of this encounter
--- OUTSIDE RECORDS SUMMARY | 2025-03-19 15:23 | XMS_ITS | Encounter Summary ---
Author Organization [facility] Address [address] [facility], [address] [place] [address] Care Team Providers Care Senior Project Manager Name Role Phone William King MD Primary Care Provider [phone] Reason for Visit * Reason Comments Medication Refill Encounter Details Date Type Department Care Team (Late st Contact Info) Description 12/20/2015 Refill Jeanette King MD [facility] [address] [place] [address] William King MD [address] [place], [place] [phone] Medication Refill Social History Tobacco Use Types [...] as of this encounter Care Teams Senior Project Manager Relationship Specialty Start Date End Date William King MD [address] [place] [id number] PCP - General 06/09/12 11/08/21 documented as of this encounter
--- OUTSIDE RECORDS SUMMARY | 2025-03-19 15:23 | XMS_ITS | Encounter Summary ---
Author Organization [facility] Address [facility] [place] [address] Care Team Providers Care Reverse Unit Operator Fisherman Name Role Phone Dina Ortiz MD Unavailable Ankit Bundy MD Primary Care Provider [phone] Source Comments In the event this information is protected by the Federal Confidentiality of Alcohol and Drug AbusePatient Records regulations: The Federal rules restrict any use of the information to criminally investigate or prosecute any alcohol or drug abuse patient.[facility] Encounter Details Date Type Department Care Team (Late st Contact Info) Description 02/21/2024 Patient Msg Pre Anesthesia [address] [place] [address] Jarvis Madison APRN.ONLINE MERCHANDISING COORDINATOR [address] [place], [place] [id number] PREOPERATIVE INSTRUCTIONS Social History Tobacco Use Types Packs/Day Years [...] often do you attend chur ch or mandaeism services? More than 4 times per year 12/29/2020 Do you belong to any clubs o r organizations such as mandaen groups, unions, fraternal or athletic groups, or [...] Answer Date Recorded PHQ-2 score 6 12/29/2020 [facility]ational [facility] Questionnaire Answer Date Recorded [...] place to sleep or slept in a long term (including now)? No 12/29/2020 Area Deprivation Index Answer Date Randolph rded National Score (1-100), lower number is lower ri sk 63 09/21/2023 State Score (1-10), lower number is lower risk 4 09/21/2023 Data from: https://www.neighborhoodatlas.medicine.[facility].edu/. Last address used for calculation [address] [...] 9:15 AM EDT Office Visit Urology [address] [address] Alex Ricks MD [address] [place] [address] Msg left to reschedule apt - 05/14/2025 11:00 AM EDT Office Visit Urology [address] [address] Alex Ricks MD [address] [place] [address] 1 month follow up check infected innerstem 05/20/2025 11:40 AM EDT [facility] [address] [place], [place] [phone] Broderick Martinez MD [address] [place], [place] [id number] 6 month follow up documented as of this encounter Visit Diagnoses Not on filedocumented in this encounter Care Teams Reverse Unit Operator Fisherman Relationship Specialty Start Date End Date Ankit Bundy MD [address] [place] [address] PCP - General Family Medicine 02/07/24 Dina Ortiz MD [address] [facility] [place] [address] Referring Urology 09/14/23 documented as of this encounter
--- OUTSIDE RECORDS SUMMARY | 2025-03-19 15:23 | XMS_ITS | Clinical Summary ---
Author Organization [facility] Address [address] [place] [address] Care Team Providers Care Heel Cover Softener Name Role Phone Tee Carpenter MD Unavailable Ankit Bundy MD Unavailable Sarmad Chavez MD Unavailable [phone] Ankit Bundy MD Primary Care Provider [phone] Allergies Active Allergy Reactions Criticality Noted Date Comments Amoxicillin-Pot Clavulanate 12/05/19 19 Shellfish-Derived Products 2 Per audiovisual tech note on 08/10/21. Medications atorvastatin 20 MG Tab tablet Take 1 tablet by mouth daily every morning. 09/21/2018 Active allopurinol 300 MG Tab tablet Take 1 tablet by mouth daily every morning. 09/21/2018 Active buPROPion 300 MG tablet XL Take 1 tablet by mouth daily every morning. 09/25/2021 Active levothyroxine 100 MCG tablet Take 1 tablet by mouth every morning before breakfast. 09/25/2021 Active lisinopril 10 MG tablet Take 1 tablet by mouth daily. 09/25/2021 Active venlafaxine 75 MG Cap SR 24HR capsule XR Take 3 capsules by mouth daily every morning. 09/25/2021 Active gabapentin 300 MG capsule Take 1 capsule by mouth at bedtime for 14 days. 14 capsule 09/24/2021 Active pantoprazole [address] tablet DRIndications:G I Bleed Take 1 tablet by mouth 2 times daily. 09/24/2021 Active metFORMIN 1000 MG tablet Take 1 tablet by mouth 2 times daily with meals. 0 09/24/2021 Active SITagliptin 100 MG tablet Take 1 tablet by mouth daily. 0 09/24/2021 Active Active Problems Problem Noted Date Diagnosed Date Effusion, left knee 09/25/2021 Depression 09/21/2021 Cirrhosis 09/16/2021 Epidural abscess 08/21/2021 Neutropenia (Low ANC) 08/20/2021 Pancytopenia (Low Blood Counts) 08/17/2021 Electrolyte disorder (K, Cl, or Na) 08/08/2021 Diabetes (A1C > 6.49%) 08/04/2021 Post-operative state 08/02/2021 Anemia (Low HGB) 08/02/2021 Spinal stenosis, thoracic 08/01/2021 Overview (08/02/2021): Added automatically from request for surgery [id number] Melena 08/01/2021 Overview (08/17/2021): Added automatically from request for surgery [id number] Postoperative state 01/02/2019 Spinal stenosis of lumbar re gion with neurogenic claudication 12/04/2018 Lumbar spine tumor 12/04/2018 HLD (hyperlipidemia) HTN (hypertension) Hypothyroidism GERD (gastroesophageal reflux disease) Diabetes mellitus, type 2 Immunizations Immunization Administration Dates Next Due [id number] COVID-19 monovalen t vaccine ([employer]) 12yr +, 30mcg/0.3mL 09/21/2021 Hep B Vaccine, (RECOMB) Adju vanted (HEPLISAV-B) (NOT IN ) 09/18/2021(Deferred: Patient Refused - Patient states he does not know why he needs this) Family History Medical History Relation Name Comments Heart Disease - Other Brother Hypertension Brother Diabetes Father Heart Disease - Other Father Cancer Maternal Grandmother Heart Disease - Other Mother Anesth Problems Neg Hx Colorectal Cancer Neg Hx Relation Name Status Comments Brother Father Maternal Grandmother Mother Social History Tobacco Use Types Packs/Day Years Used Date Smoking Tobacco: Never Smokeless Tobacco: Never Alcohol Use Standard Drinks/Week Comments Yes 42 (1 standard drink = 0.6 oz pure alcohol) 6-PACK A DAY (quit 2 years ago 01/20/2020) AUDIT-C Answer Date Recorded Frequency of Alcohol Consumption 4 or more times a week 12/19/2018 Average Number of Drinks 5 or 6 019 Frequency of Binge Drinking Not on file 02/2019 Depression Answer Date Recorded PHQ-9 Total Score (Interpret ation of Total Score 1-4 = Minimal depression; 5-9 = Mild depression; 10-14 = Moderate depression; 15-19 = Moderately severe depression) 0 09/22/2023 Sex and Gender Information Value Date Recorded Sex Assigned at Not on file Legal Sex Male 1:50 PM EDT Gender Identity Male 06/08/2021 1:21 PM EDT Sexual Orientation Straight 06/08/2021 1: 21 PM EDT Last Filed Vital Signs Vital Sign Reading Time Taken Comments Blood Pressure 160/78 09/22/2023 10:09 AM EST Pulse 85 09/22/2023 10:09 AM EST Temperature 36.1 C (97 F) 09/22/2023 10:09 AM EST Respiratory Rate 18 09/22/2023 10:09 AM EST Oxygen Saturation 96% 09/22/2023 10:09 AM EST Inhaled Oxygen Concentration - - Weight 87.7 kg (193 lb 4.8 oz) 09/22/2023 10:09 AM EST Height 172.7 cm (5' 7.99 ) 09/22/2023 10:[address] Body Mass Index 29.4 09/22/2023 10:09 AM EST Plan of Treatment Health Maintenance Due Date Last Done Comments DIABETIC FOOT EXAM 1950 EYE EXAM 1950 LIPIDS 1950 TETANUS 1950 URINE MICROALBUMIN TEST 1950 PNEUMOCOCCAL VACCINE SERIES (1 of 2 - PCV) 11/05/1970 TDAP (ADULT) 11/05/1970 ZOSTER (SHINGLES) VACCINE (1 of 2) 11/05/2001 HEP B VACCINE (1 of 3 - Risk 3-dose series) 2011 RSV VACCINE (1 - Risk 60-74 years 1-dose series) 2011 HBA1C TEST 02/02/2022 08/04/2021, 12/19/2018 TSH 08/06/2022 08/06/2021 COLORECTAL CANCER SCREENING DISCUSSION 08/16/2022 08/16/2021, 08/16/2021 COVID-19 VACCINE ( season) 2024 09/21/2021, 11/21/2020, 10/09/2020 INFLUENZA VACCINE (#1) 2025 HEPATITIS C VIRUS SCREENING Completed 08/17/2021 Medical Devices Implanted Type Area Skidder Driver Device Identifier Shelf Expiration Date Model / Serial / Lot Fibergraft Bg Putty Implanted:Qty: 1 on 01/02/2019 by [facility]arm[facility] Chavez MD at [facility] Midline: Spine Lumbar PROSIDYAN 11/30/2020 [id number] / / [id number] Concorde Proti 5 Dg 9x9x23 Mm Implanted:Qty: 1 on 01/02/2019 by [facility]armad Chavez MD at [facility] Midline: Spine Lumbar DEPUY 06/16/2023 [id number] / / [id number] Concorde Proti 5 Dg 9x9x23 Mm Implanted:Qty: 1 on 01/02/2019 by [facility]armad Chavez MD at [facility] Midline: Spine Lumbar DEPUY 09/19/2022 [id number] / / Screw 1-Innie Polyax Ti 6.0x50 - [id number] Implanted:Qty: 4 on 01/02/2019 by [facility] Chavez MD at [facility] Midline: Spine Lumbar DEPUY [id number] / / Screw Set 1-Innie - [id number] Implanted:Qty: 4 on 01/02/2019 by [facility] Chavez MD at [facility] Midline: Spine Lumbar DEPUY [id number] / / Ed Mmsi Prebent 5.5 X45mm T - [id number] Implanted:Qty: 1 on 01/02/2019 by [facility] Chavez MD at [facility] Midline: Spine Lumbar DEPUY [id number] / / Ed Mmsi Prebent 5.5 X45mm T - [id number] Implanted:Qty: 1 on 01/02/2019 by [facility] Chavez MD at [facility] Midline: Spine Lumbar DEPUY [id number] / / Graft Duragen Plus 1x1 Matrix - [id number] Implanted:Qty: 1 on 01/02/2019 by [facility] Chavez MD at [facility] Midline: Spine Lumbar [employer] 06/14/2021 [id number] / / [id number] Procedures Procedure Name Priority Date/Time Associated Diagnosis Comments DIALYSIS HEP PANEL-CHRONIC Routine 08/17/2021 8:38 PM EST OCCULT BLOOD, STOOL Routine 08/16/2021 1 2:35 PM EST TSH W/FT4 REFLEX Routine 08/06/2021 8:14 AM EST HEMOGLOBIN A1C Routine 08/04/2021 12:02 AM EST from Last 3 Months or Most Recently Relevant to Health Maintenance Results * DIALYSIS HEP PANEL-CHRONIC (08/17/2021 8:38 PM EST) Hep B Surface Ab Negative Negative 08/18/2021 9:21 AM EST [facility] Hep B Core Ab,Total (IgG+IgM) Negative Negative 08/18/2021 9:21 AM EST [facility] Hepatitis C Antibody Negative Negative 08/18/2021 9:21 AM EST [facility] Blood Venipuncture / Unknown 08/17/2021 8:38 PM EST 08/17/2021 9:47 PM EST us Sarmad Chavez MD IMMUNOLOGY ORDERABLES Final Res ult [facility] [address] [place] [address] * OCCULT BLOOD, STOOL (08/16/2021 12:35 PM EST) Occult Blood - Fecal Negative Negative 08/16/2021 1:32 PM EST [facility] Stool Collection / Unknown 08/16/2021 12:35 PM EST 08/16/2021 12:43 PM EST us Sarmad Chavez MD BODY FLUIDS & STOOLS ORDERABLES Final Result Performing Organization Address [facility] Co de Phone Number [facility] [address] [address] * (ABNORMAL) TSH W/FT4 REFLEX (08/06/2021 8:14 AM EST) TSH 5.702(H) 0.550 - 4.780 uIU/mL 08/06/2021 1:10 PM EST [facility] Blood Venipuncture / Unknown 08/06/2021 8:14 AM EST 08/06/2021 8:39 AM EST us Sarmad Chavez MD ENDOCRINOLOGY Final Result Performing Organization Address [facility] de Phone Number [facility] [address] [address] * (ABNORMAL) HEMOGLOBIN A1C (08/04/2021 12:02 AM EST) Hemoglobin A1C HPLC 9.1(H) 4.7 - 5.6 % 08/04/2021 9:37 AM EST [facility] Estimated Average Glucose 214 mg/dL 08/04/2021 9:37 AM EST [facility] Blood Venipuncture / Unknown 08/04/2021 12:02 AM EST 08/04/2021 12:29 AM EST us Eduardo Kim MD HEMATOLOGY ORDERABLES Final Res ult Performing Organization Address [facility] Co de Phone Number [facility] [address] [address] from Last 3 Months or Most Recently Relevant to Health Maintenance Insurance MEDICARE [employer] PPO Advance Directives For more information, please contact: [phone] (7:30 AM - 6PM [facility], Tuesday-Tuesday) * Full Code (Latest Code Status on File) Date Activated Date Inactivated Comments 08/21/2021 2:05 PM * Full Code Date Activated Date Inactivated Comments 08/02/2021 2:16 AM 08/21/2021 2:05 PM * Full Code Date Activated Date Inactivated Comments 01/02/2019 6:01 AM 01/02/2019 6:29 PM Healthcare Agents on File Name Relationship Healthcare Agent [facility] p Communication Bridget Elle Spouse Health Care Agent [email or web address] Alternate Health Care Agent [email or web address] Heel Cover Softener Relationship Specialty Start Date End Date Ankit Bundy MD [address] [place] [address] PCP - General Family Medicine 09/24/21 Tee Carpenter MD Orthopaedic Surgery 11/23/18 Ankit Bundy MD [address] [place] [address] Family Physician Family Medicine 08/04/21 Sarmad Chavez MD [address] [place] [address] Neurosurgeon Neurological Surgery 08/05/21
--- OUTSIDE RECORDS SUMMARY | 2025-03-19 15:23 | XMS_ITS | Encounter Summary ---
Author Organization [facility] Address [facility] [place] [address] Care Team Providers Care Wrapper Rewinder Name Role Phone Dina Ortiz MD Unavailable Ankit Bundy MD Primary Care Provider [phone] Source Comments In the event this information is protected by the Federal Confidentiality of Alcohol and Drug AbusePatient Records regulations: The Federal rules restrict any use of the information to criminally investigate or prosecute any alcohol or drug abuse patient.[facility] Encounter Details Date Type Department Care Team (Late st Contact Info) Description 03/04/2025 Get Medical Advice Urology [address] [address] Sally Dennis PA-C [address] [place] [id number] Modulator Social History Tobacco Use Types Packs/Day Years [...] often do you attend chur ch or restorationism services? More than 4 times per year [...] Date Recorded PHQ-2 score 6 12/29/2020 [facility] - Occupational Stress [...] place to sleep or slept in a skilled nursing (including now)? No 12/29/2020 Area Deprivation Index Answer Date Randolph rded National Score (1-100), lower number is lower ri sk 63 09/21/2023 State Score (1-10), lower number is lower risk 4 09/21/2023 Data from: https://www.neighborhoodatlas.medicine.[facility].edu/. Last address used for calculation [address] [...] 9:15 AM EDT Office Visit Urology [id number] Alex Ricks MD [address] [place], [place] [id number] Msg left to reschedule apt - 05/14/2025 11:00 AM EDT Office Visit Urology [address] [address] Alex Ricks MD [address] [place] [address] 1 month follow up check infected innerstem 05/20/2025 11:40 AM EDT [facility] [address] [place], [place] [id number] Broderick Martinez MD [address] [place], [place] [id number] 6 month follow up documented as of this encounter Visit Diagnoses Not on filedocumented in this encounter Care Teams Wrapper Rewinder Relationship Specialty Start Date End Date Ankit Bundy MD [address] [facility] [place] [address] PCP - General Family Medicine 02/07/24 Dina Ortiz MD [address] [facility] [place] [address] Referring Urology 09/14/23 documented as of this encounter
--- OUTSIDE RECORDS SUMMARY | 2025-03-19 15:23 | XMS_ITS | Encounter Summary ---
Author Organization [facility] Address [address] [facility], [address] [place] [address] Care Team Providers Care Seafood Processor Name Role Phone William King MD Primary Care Provider [phone] Reason for Referral * Imaging (Routine) - Closed Specialty Diagnoses / Procedures Referred By Kevinac t Referred To Contact Radiology Diagnoses Myelopathy, spondylogenic, cervical Procedures MRI CERVICAL SPINE WO CONTRAST Chance Knox MD [address] [place] [address] Phone: tel: fax: Referral ID Status Reason Start Date Expiration Date Visits Re quested Visits Authorized [id number] Closed 02/12/2021 02/12/2022 1 1 Encounter Details Date Type Department Care Team (Latest Contact Info) Description 02/12/2021 Transcribe Orders [facility] [address] [place], [place] [id number] Chance Knox MD [address] [place] [address] Myelopathy, spondylogenic, cervical (Primary Dx) Social History Tobacco Use Types Packs/Day Years [...] as of this encounter Results * MRI CERVICAL SPINE WO CONTRAST (02/13/2021 9:17 AM EDT) Anatomical Region Laterality Modality C-spine, T-spine, Neck Magnetic Resonance 02/13/2021 9:27 AM EDT Impressions 02/13/2021 10:28 AM EDT Multilevel degenerative disc disease with uncovertebral and facet hypertrophy resulting in canal stenosis at C4-5, C5-6, and C6-7. Foraminal narrowing bilaterally throughout the cervical spine as described above. Narrative 02/13/2021 10:28 AM EDT EXAMINATION: MRI OF THE CERVICAL [...] mild left and severe right foraminal narrowing. Procedure Note Sam Huang MD - 02/13/2021 EXAMINATION: MRI OF THE CERVICAL SPINE WITHOUT CONTRAST 02/13/2021 8:59 am TECHNIQUE: Multiplanar multisequence MRI of the cervical spine was performed withoutthe administration of intravenous contrast. COMPARISON: None. HISTORY: ORDERING SYSTEM PROVIDED HISTORY: Myelopathy, spondylogenic, cervical FINDINGS: BONES/ALIGNMENT: The vertebral body heights are maintained. There is age-appropriate bone marrow signal. There is degenerative endplatechange throughout the mid and lower cervical spine. There is multilevel degenerative disc disease with loss of disc signal. There is nosignificant disc space narrowing. There is no spondylolisthesis. [...] no canal stenosis. There is moderate left andsevere right foraminal narrowing. C4-C5: There is a disc osteophyte complex with uncovertebral and facet hypertrophy. There is canal stenosis measuring 9 mm in AP dimension.There is mild right and moderate left foraminal narrowing. C5-C6: There is a disc osteophyte complex with uncovertebral and facet hypertrophy. There is canal stenosis measuring 9 mm in AP dimension.There is severe bilateral foraminal narrowing. C6-C7: There is a disc osteophyte complex with uncovertebral and facet hypertrophy. There is canal stenosis measuring 9 mm in AP dimension.There is moderate bilateral foraminal narrowing. C7-T1: There is a disc osteophyte complex with uncovertebral and facet hypertrophy. There is no canal stenosis. There is mild left and severe right foraminal narrowing. IMPRESSION: Multilevel degenerative disc disease with uncovertebral and facethypertrophy resulting in canal stenosis at C4-5, C5-6, and C6-7. Foraminal narrowing bilaterally throughout the cervical spine asdescribed above. us Chance Knox MD IMG MRI ORDERABLES Final Resul t documented in this encounter Visit Diagnoses Diagnosis Myelopathy, spondylogenic, cervical- Primary Cervical spondylosis with myelopathy Myelopathy, spondylogenic, cervical Cervical spondylosis with myelopathy documented in this encounter Additional Health Concerns Assessment Noted Time A fall risk assessment has been complete d for the patient 05/29/2020 8:40 AM EDT A Body Mass Index follow-up plan has been documented for the patient 12/01/2020 9:15 AM EDT documented as of this encounter Care Teams Seafood Processor Relationship Specialty Start Date End Date William King MD [address] [place], [place] [id number] PCP - General 06/09/12 11/08/21 documented as of this encounter
[2025-03-19 16:31] LABS: Thyroid Stimulating Hormone 0.900 uIU/mL (0.358-3.740)
== END 2025-03-19 15:17 | disposition home or self-care (01) ==
LOC: LAB 15:19
PROVIDERS: PCP Family Medicine; Visit Provider Family Medicine
DX: E11.65 Type 2 diabetes mellitus with hyperglycemia (principal); E03.9 Hypothyroidism, unspecified
CPT/HCPCS: 36415; 82043; 82570; 84439; 84443